=== PATIENT | female | born 1965 | race Caucasian/White ===

== ENCOUNTER 2020-04-17 21:28 | Inpatient (IN) | payer MEDICAID, OTHER, SELFPAY ==
[~2020-04-17] VITALS: Ht 172.7 cm; Wt 94.8 kg
[~2020-04-17 21:28] MED LIST: FLEX5TAB3 PO; IBUP200C PO; IBUP600T26 OR
--- OUTSIDE RECORDS SUMMARY | 2020-04-17 21:33 | CCD | Summary of Care ---
Author Author [facility] Organization [facility] Address Unknown Phone Unavailable Care Team Providers Care Supervisor Benzene Refining Name Role Phone Norbert Wong MD PCP Reason for Referral * Used Durable Medical Equipment (Routine) Referred By Contact Referred To Contact Status Reason Specialty Diagnoses / Procedures Ivan Lew MD [address] [facility] [address] [place] [id number] Email: [email or web address] Open Diagnoses Closed fracture of tibia and fibula with routine healing, unspecified laterality, subsequent encounter Scheduling Instructions [id number] Cam Boot Walking - Tall * Physical Therapy (Routine) Referred By Contact Referred To Contact Status Reason Specialty Diagnoses / Procedures Ivan Lew MD [address] [address] Email: [email or web address] Open Diagnoses Closed fracture of tibia and fibula with routine healing, unspecified laterality, subsequent encounter P rocedures Physical Therapy Evaluate and Treat (External) Reason for Visit * Reason Comments Follow-up 2 wk f/u for right ankle fr acture sx Encounter Details Care Team Description Date Type Department Ivan Lew MD [address] [facility] [address] [place] [address] Closed fracture of tibia and fibula with routine healing, unspecified laterality, subsequent encounter (Primary Dx) 01/29/2020 Office Visit Sorin Cottos Mary [address] [place] [id number] Allergies Comments Active Allergy Reactions Severity Noted Date Hydrocodone-Guaifenesin Hives High 2014 Latex 10/08/2019 documented as of this encounter (statuses as of 01/29/2020) Medications End Date Status Medication Sig Dispensed Refills Start Date Active Zonisamide 100 MG Oral Take 200 mg 0 Capsule (ZONEGRAN) by mouth Two Times Daily Active Prochlorperazine Maleate Take 10 mg by 0 10 MG Oral Tablet mouth every 6 (COMPAZINE)Indications: (six) hours Nausea and Vomiting as needed For nausea and vomiting Indications: Nausea and Vomiting Active Ondansetron HCl 8 MG Oral Take 8 mg by 0 Tablet mouth every 8 (ZOFRAN)Indications: (eight) hours Nausea and Vomiting as needed for Nausea or VomitingIndic ations: Nausea and Vomiting Active levETIRAcetam 500 MG Oral Take 2 60 tablet 3 Tablet (KEPPRA) tablets by 0 mouth Two Times Daily Active Dexamethasone 4 MG Oral Take 1 tablet 60 tablet 0 Tablet (DECADRON) by mouth Two 0 times daily with meals Active traZODone HCl 50 MG Oral Take 50 mg by 0 Tablet (DESYREL) mouth nightly Active Omeprazole 20 MG Oral Take 20 mg by 0 Capsule Delayed Release mouth daily (PriLOSEC) 02/16/2020 Active Vitamin D Take 1 8 capsule 0 (Ergocalciferol) 1.25 MG capsule by 0 (68587 UT) Oral Capsule mouth every 7 (ERGOCALCIFEROL) (seven) days for 8 doses 12/22/2020 Active Vitamin D3 25 MCG (1000 Take 2 180 tablet 3 UT) Oral Tablet tablets by 0 (CHOLECALCIFEROL) mouth daily 12/22/2020 Active Calcium Citrate 950 MG Take 0.5 90 tablet 3 Oral Tablet (CALCITRATE) tablets by 0 mouth Two Times Daily Active Enoxaparin Sodium 40 Inject 0.4 0 MG/0.4ML Subcutaneous mLs into the 0 Solution (LOVENOX) skin daily Active oxyCODONE HCl 5 MG Oral Take 5 mg by 0 Tablet (ROXICODONE) mouth every 6 (six) hours as needed for Pain Active Vitamin C 500 MG Oral Take 500 mg 0 Tablet (ASCORBIC ACID) by mouth daily documented as of this encounter (statuses as of 01/29/2020) Active Problems Problem Noted Date Tibia/fibula fracture 12/19/2019 Encounter for palliative care 10/11/2019 Overview: 10/10. Patient seen in hospital. Consul pedro to facilitate goals of care discussion. Patient declined surgery, but will continue outpt chemo/radiation. Outpt palliative care referral offered. HCP document designating son Sheldon as proxy placed in chart. 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 documented as of this encounter Last Filed Vital Signs Not on filedocumented in this encounter Patient Instructions * Patient Instructions* Ivan Lew MD - 01/29/2020 2:15 PM EST Weight bearing restrictions:Begin weight bearing as tolerated Activity restrictions:Activities as tolerated within the parameters of the weigh t bearing restrictions noted above Physical Therapy: New PT Rx Given Limb Immobilization:CAM boot DVT prophylaxis:No DVT prophylaxis indicated at this time Bone Health Meds:Vitamin D3 1800IU daily, Calcium Citrate 500mg twice daily, Vit golden C 500mg daily until bone healing,Vitamin D2 50,000 units weekly Smoking Cessation:Not applicable Next post op clinic visit:03/25/2020 Imaging at next visit: Right ankle documented in this encounter Progress Notes * Ivan Lew MD - 01/29/2020 2:15 PM EST Patient is now 5 weeks status post ORIF right ankle fracture. Her incisions loo k great today. Sutures been removed. I am going to place her in a cam boot and I think that given her overall condition it is safe for her to begin gait train ing at this time. I have written her physical therapy prescription for this. I will plan to see her back in about 6 weeks to assess her function and obtain x- rays. No signs of infection. Weight bearing restrictions:Begin weight bearing as tolerated Activity restrictions:Activities as tolerated within the parameters of the weigh t bearing restrictions noted above Physical Therapy: New PT Rx Given Limb Immobilization:CAM boot DVT prophylaxis:No DVT prophylaxis indicated at this time Bone Health Meds:Vitamin D3 1800IU daily, Calcium Citrate 500mg twice daily, Vit golden C 500mg daily until bone healing,Vitamin D2 50,000 units weekly Smoking Cessation:Not applicable Next post op clinic visit:03/25/2020 Imaging at next visit: Right ankle documented in this encounter Plan of Treatment Care Team Description Date Type Specialty Rachel Ruelas MD [address] [place] [address] [phone] 01/30/2020 Telemedicine Hematology and Onco logy Order Schedule Name Type Priority Associated Diag noses Ordered: 01/29/2020 Cam Boot Walking - Tall Outpatient Routine Closed fracture of tibia Referral and fibula with routine healing, unspecified laterality, subsequent encounter Health Maintenance Due Date Last Done Comments MMR Vaccines (1 of - 09/10/1968 Standard series) Varicella Vaccines (1 of 09/10/1968 2 - 2-dose childhood series) Pneumococcal Vaccine: 09/10/1973 Pediatrics (0 to 5 Years) and At-Risk Patients (6 to 64 Years) (1 of 3 - PCV13) DTaP,Tdap,and Td Vaccines 09/10/1974 (1 - Tdap) HIV Screening 09/10/1980 Cervical Cancer Screening 09/10/1988 5 years Breast Cancer Screening 2 09/10/2017 years Colon Cancer Screening 10 09/10/2017 yrs Influenza Vaccine 12/06/2019 Pneumococcal Vaccine: 65+ 09/10/2032 Years (1 of 1 - PPSV23) HIB Vaccines Aged Out No longer eligible based on patient's age to complete this topic Hepatitis A Vaccines Aged Out No longer eligibl e based on patient's age to complete this topic Hepatitis B Vaccines Aged Out No longer eligibl e based on patient's age to complete this topic IPV Vaccines Aged Out No longer eligible based on patient's age to complete this topic documented as of this encounter Implants Device Identifier Shelf Expiration Date Model / Serial / L ot Implanted Type Area Manufactur er 02.206.080 / / Screw Cortex Lp 3.5 X 80mm - Right: Ankle SYNTHES [id number] TRAUMA Implanted: Qty: 1 on 12/20/2019 by Ivan Lew MD at [facility]E 219.98 / / Washer 7.0mm Sml Screws - Right: Ankle SYNTHES [id number] TRAUMA Implanted: Qty: 1 on 12/20/2019 by Ivan Lew MD at [facility] 292.12 / / Wire Kirsc W/Trocpt [id number] Right: Ankle SYN THES Ea - [id number] TRAUMA Implanted: Qty: 1 on 12/20/2019 by Ivan Lew MD at [facility] 02.206.014 / / Screw Cortex Lp 3.5x14mm St - Right: Ankle SYNTHES [id number] TRAUMA Implanted: Qty: 1 on 12/20/2019 by Ivan Lew MD at [facility] 02.206.016 / / Screw Cortex Lp 3.5mm [id number]. Right: Ankle SY NTHES - [id number] TRAUMA Implanted: Qty: 1 on 12/20/2019 by Ivan Lew MD at [facility] 02.206.020 / / Screw Cortex Lp 3.5mm [id number]. Right: Ankle SY NTHES - [id number] TRAUMA Implanted: Qty: 1 on 12/20/2019 by Ivan Lew MD at [facility] 02.206.022 / / Screw Cortex Lp 3.5mm [id number]. Right: Ankle SY NTHES - [id number] TRAUMA Implanted: Qty: 1 on 12/20/2019 by Ivan Lew MD at [facility] 02.206.024 / / Screw Cortex Lp 3.5mm [id number]. Right: Ankle SY NTHES - [id number] TRAUMA Implanted: Qty: 1 on 12/20/2019 by Ivan Lew MD at [facility] 02.206.026 / / Screw Cortex Lp 3.5mm [id number]. Right: Ankle SY NTHES - [id number] TRAUMA Implanted: Qty: 1 on 12/20/2019 by Ivan Lew MD at [facility] documented as of this encounter Results Not on filedocumented in this encounter Visit Diagnoses Diagnosis Closed fracture of tibia and fibula wit h routine healing, unspecified laterality, subsequent encounter - Primary documented in this encounter
--- OUTSIDE RECORDS SUMMARY | 2020-04-17 21:33 | CCD | Continuity of Care Document ---
Author Author [facility] Organization Unknown Address Unknown Phone Unavailable Care Team Providers Care Reclamation Engineer Name Role Phone Wong, Norbert Unavailable Unavailable Unavailable Wong, Norbert Unavailable Unavailable Unavailable Kathleen Arce Unavailable Sushila Zhao Unavailable Jody Chung Unavailable Unavailable Sanchez Emily Unavailable Problems Name Dates Details Malignant neoplasm of brain, unspecified (C71.9) 13-Apr-2020 Status: Active Medications Name Dates Details Dexamethasone 4 MG Wong, Norbert Active Keppra 500 MG Wong, Norbert* Start : 15-Apr-2020 Active Omeprazole 20 MG Wong, Norbert* Start : 15-Apr-2020 Active Zonisamide 100 MG Wong, Norbert* Start : 15-Apr-2020 Active Depend Silhouette Briefs L/XL Change as needed Marvin Norbert* Start : 15-Apr-2020 Active Underpads Extra Large Use as needed Wong Norbert* Start : 15-Apr-2020 Active Calcium Carbonate-Vitamin D 600-200 MG-UNIT Wong, Norbert* Start : 15-Apr-2020 Active Gait/Transfer Belt Marvin, Norbert* Start : 15-Apr-2020 Active traZODone HCl 50 MG Wong, Norbert* Start : 15-Apr-2020 Active traZODone HCl 50 MG Wong, Norbert* Start : 29-Oct-2019 End : 13-Dec-2019 Inactive Temozolomide 140 MG Take with 20mg capsule for total of 160mg Wong, Norbert* Start : 26-Oct-2019 End : 13-Dec-2019 Inactive Temozolomide 20 MG take with 140mg cap for total of 160mg Wong, Norbert* Start : 26-Oct-2019 End : 13-Dec-2019 Inactive Dexamethasone 4 MG Wong, Norbert* Start : 22-Oct-2019 End : 13-Dec-2019 Inactive LevETIRAcetam 500 MG Take 2 tablets twice a day Norbert Wong* Start : 22-Oct-2019 End : 13-Dec-2019 Inactive Omeprazole 40 MG Norbert Wong* Start : 22-Oct-2019 End : 13-Dec-2019 Inactive Ondansetron HCl 8 MG Take one tablet every 8 hours as needed for nausea/vomiting Norbert Wong* Start : 22-Oct-2019 End : 13-Dec-2019 Inactive Prochlorperazine Maleate 10 MG Take one tablet every 6 hours as needed for nausea/vomiting Norbert Wong* Start : 22-Oct-2019 End : 13-Dec-2019 Inactive Bactrim DS 800-160 MG Norbert Wong* Start : 22-Oct-2019 End : 13-Dec-2019 Inactive Zonisamide 100 MG Take two capsules twice daily Norbert Wong* Start : 22-Oct-2019 End : 13-Dec-2019 Inactive Allergies and Adverse Reactions Name Dates Details Latex (Allergy) Onset: 15-Apr-2020 St atus: Active Results Date Description Value Details No Known Results Plan of Care Name Dates Details Instructions Diet:Regular diet Ins truction Type: Nutrition education Payers * Medicare - [facility] * [facility] [place]
--- OUTSIDE RECORDS SUMMARY | 2020-04-17 21:33 | CCD | Continuity of Care Document ---
Author Author [facility] Organization Unknown Address Unknown Phone Unavailable Care Team Providers Care Academic Support Center Director Name Role Phone Wong, Norbert Unavailable Unavailable [...] Type: Nutrition education Payers * Medicare - [facility] * [facility]
--- OUTSIDE RECORDS SUMMARY | 2020-04-17 21:33 | CCD | Continuity of Care Document ---
Author Author [facility] Organization Unknown Address Unknown Phone Unavailable Care Team Providers Care Compliance Tester Name Role Phone Wong, Norbert Unavailable Unavailable [...] Type: Nutrition education Payers * Medicare - [facility] * [facility]
--- OUTSIDE RECORDS SUMMARY | 2020-04-17 21:33 | CCD | Continuity of Care Document ---
Author Author [facility] Organization Unknown Address Unknown Phone Unavailable Care Team Providers Care Retail Event And Sales Assistant Name Role Phone Wong, Norbert Unavailable Unavailable [...] Type: Nutrition education Payers * Medicare - [facility] * [facility]
--- OUTSIDE RECORDS SUMMARY | 2020-04-17 21:34 | CCD ---
Author Author [facility] Organization [facility] Address Unknown Phone Unavailable Care Team Providers Care Registered Nurse Cardiac Telemetry Name Role Phone Steve Almazan MD Unavailable Unavailable Steve Almazan MD Unavailable Unavailable Steve Almazan MD Unavailable Unavailable Steve Almazan MD Unavailable Unavailable Steve Almazan MD Unavailable Unavailable Steve Almazan MD Unavailable Unavailable Steve Almazan MD Unavailable Unavailable Steve Almazan MD Unavailable Unavailable Steve Almazan MD Unavailable Unavailable Steve Almazan MD Unavailable Unavailable Steve Almazan MD Unavailable Unavailable Steve QUIROZ Unavailable Unavailable Jem CH MD Unavailable Unavailable Jem CH MD Unavailable Unavailable Jem CH MD Unavailable Unavailable Jem CH MD Unavailable Unavailable Jem CH MD Unavailable Unavailable Jem CH MD Unavailable Unavailable Jem CH MD Unavailable Unavailable Jem CH MD Unavailable Unavailable Jem CH MD Unavailable Unavailable Miller, Baltazar Unavailable Unavailable Miller, Baltazar Unavailable Unavailable Miller, Baltazar Unavailable Unavailable Miller, Baltazar Unavailable Unavailable Miller, Baltazar Unavailable Unavailable Kevin Merida MD Unavailable Unavailable Kevin Merida MD Unavailable Unavailable Kevin Merida MD Unavailable Unavailable Rowan Sellers MD Unavailable Unavailable Rowan Sellers MD Unavailable Unavailable Rowan Sellers MD Unavailable Unavailable Rowan Sellers MD Unavailable Unavailable Rowan Sellers MD Unavailable Unavailable Rowan Sellers MD Unavailable Unavailable Rowan Sellers MD Unavailable Unavailable Rowan Sellers MD Unavailable Unavailable Rowan Sellers MD Unavailable Unavailable Rowan Slelers MD Unavailable Unavailable Rowan Sellers MD Unavailable Unavailable Rowan Sellers MD Unavailable Unavailable Rowan Sellers MD Unavailable Unavailable Rowan Sellers MD Unavailable Unavailable Rowan Sellers MD Unavailable Unavailable Rowan Sellers MD Unavailable Unavailable Rowan Sellers MD Unavailable Unavailable NSOULI, I SUDHIR . Unavailable Unavailable GERALDO ., JACKIE . Unavailable Unavailable GERALDO ., JACKIE . Unavailable Unavailable GERALDO ., JACKIE . Unavailable Unavailable Rauscher, M Kate Unavailable Unavailable Rauscher, M Kate Unavailable Unavailable Rauscher, M Kate Unavailable Unavailable Rauscher, M Kate Unavailable Unavailable Rauscher, M Kate Unavailable Unavailable Rauscher, M Kate Unavailable Unavailable Rauscher, M Kate Unavailable Unavailable Rauscher, M Kate Unavailable Unavailable Rauscher, M Kate Unavailable Unavailable Mary LARRY MD Unavailable Unavailable Mary LARRY MD Unavailable Unavailable Mary LARRY MD Unavailable Unavailable Mary LARRY MD Unavailable Unavailable LARRYMary CORBETT MD Unavailable Unavailable LARRYMary CORBETT MD Unavailable Unavailable LARRYMary CORBETT MD Unavailable Unavailable LARRYMary CORBETT MD Unavailable Unavailable LARRYMary CORBETT MD Unavailable Unavailable LARRYMary CORBETT MD Unavailable Unavailable LARRYMary BRANDT MD Unavailable Unavailable LARRYMary CORBETT MD Unavailable Unavailable LARRYMary CORBETT MD Unavailable Unavailable LARRYMary CORBETT MD Unavailable Unavailable Mary LARRY MD Unavailable Unavailable Mary LARRY MD Unavailable Unavailable LARRYMary CORBETT MD Unavailable Unavailable LARRYMary BRANDT MD Unavailable Unavailable LARRYMary BRANDT MD Unavailable Unavailable LARRY, P JER ALEJANDRA Unavailable Unavailable LARRYMary CORBETT MD Unavailable Unavailable LARRYMary CORBETT MD Unavailable Unavailable LARRY, P JER MD Unavailable Unavailable LARRY, P JER MD Unavailable Unavailable LARRY, P JER MD Unavailable Unavailable LARRY, P JER MD Unavailable Unavailable LARRY, P JER MD Unavailable Unavailable LARRY, P JER MD Unavailable Unavailable LARRY, P JER MD Unavailable Unavailable LARRY, P JER MD Unavailable Unavailable LARRY, P JER MD Unavailable Unavailable LARRY, P JER MD Unavailable Unavailable LARRY, P JER MD Unavailable Unavailable LARRY, P JER MD Unavailable Unavailable LARRY, P JER MD Unavailable Unavailable LARRY, P JER MD Unavailable Unavailable LARRY, P JER MD Unavailable Unavailable LARRY, P JER MD Unavailable Unavailable LARRY, P JER MD Unavailable Unavailable LARRY, P JRE MD Unavailable Unavailable LARYR, P JER MD Unavailable Unavailable LARRY, P JER MD Unavailable Unavailable LARRY, P JER MD Unavailable Unavailable LARRY, P JER MD Unavailable Unavailable LARRY, P JER MD Unavailable Unavailable Papo DENG Unavailable Unavailable VICKIE DE OLIVEIRA MD Unavailable Unavailable VICKIE DE OLIVEIRA MD Unavailable Unavailable VICKIE DE OLIVEIRA MD Unavailable Unavailable VICKIE DE OLIVEIRA MD Unavailable Unavailable VICKIE DE OLIVEIRA MD Unavailable Unavailable VICKIE DE OLIVEIRA MD Unavailable Unavailable VICKIE DE OLIVEIRA MD Unavailable Unavailable VICKIE DE OLIVEIRA MD Unavailable Unavailable VICKIE DE OLIVEIRA MD Unavailable Unavailable VICKIE DE OLIVEIRA MD Unavailable Unavailable VICKIE DE OLIVEIRA MD Unavailable Unavailable VICKIE DE OLIVEIRA MD Unavailable Unavailable VICKIE DE OLIVEIRA MD Unavailable Unavailable VICKIE DE OLIVEIRA MD Unavailable Unavailable VICKIE DE OLIVEIRA MD Unavailable Unavailable VICKIE DE OLIVEIRA MD Unavailable Unavailable VICKIE DE OLIVEIRA MD Unavailable Unavailable VICKIE DE OLIVEIRA MD Unavailable Unavailable VICKIE DE OLIVEIRA MD Unavailable Unavailable VICKIE DE OLIVEIRA MD Unavailable Unavailable VICKIE DE OLIVEIRA MD Unavailable Unavailable VICKIE DE OLIVEIRA MD Unavailable Unavailable VICKIE DE OLIVEIRA MD Unavailable Unavailable VICKIE DE OLIVEIRA MD Unavailable Unavailable VICKIE DE OLIVEIRA MD Unavailable Unavailable VICKIE DE OLIVEIRA MD Unavailable Unavailable VICKIE DE OLIVEIRA MD Unavailable Unavailable VICKIE DE OLIVEIRA MD Unavailable Unavailable VICKIE DE OLIVEIRA MD Unavailable Unavailable VICKIE DE OLIVEIRA MD Unavailable Unavailable VICKIE DE OLIVEIRA MD Unavailable Unavailable VICKIE DE OLIVEIRA MD Unavailable Unavailable VICKIE DE OLIVEIRA MD Unavailable Unavailable VICKIE DE OLIVEIRA MD Unavailable Unavailable VICKIE DE OLIVEIRA MD Unavailable Unavailable VICKIE DE OLIVEIRA MD Unavailable Unavailable VICKIE DE OLIVEIRA MD Unavailable Unavailable VICKIE DE OLIVEIRA MD Unavailable Unavailable VICKIE DE OLIVEIRA MD Unavailable Unavailable VICKIE DE OLIVEIRA MD Unavailable Unavailable VICKIE DE OLIVEIRA MD Unavailable Unavailable VICKIE DE OLIVEIRA MD Unavailable Unavailable VICKIE DE OLIVEIRA MD Unavailable Unavailable VICKIE DE OLIVEIRA MD Unavailable Unavailable VICKIE DE OLIVEIRA MD Unavailable Unavailable VICKIE DE OLIVEIRA MD Unavailable Unavailable VICKIE DE OLIVEIRA MD Unavailable Unavailable VICKIE DE OLIVEIRA MD Unavailable Unavailable VICKIE DE OLIVEIRA MD Unavailable Unavailable VICKIE DE OLIVEIRA MD Unavailable Unavailable VICKIE DE OLIVEIRA MD Unavailable Unavailable VICKIE DE OLIVEIRA MD Unavailable Unavailable VICKIE DE OLIVEIRA MD Unavailable Unavailable VICKIE DE OLIVEIRA MD Unavailable Unavailable VICKIE DE OLIVEIRA MD Unavailable Unavailable DAVI SELF MD Unavailable Unavailable DAVI SELF MD Unavailable Unavailable DAVI SELF MD Unavailable Unavailable DAVI SELF MD Unavailable Unavailable DAVI SELF MD Unavailable Unavailable DAVI SELF MD Unavailable Unavailable DAVI SELF MD Unavailable Unavailable DAVI SELF MD Unavailable Unavailable DAVI SELF MD Unavailable Unavailable DAVI SELF MD Unavailable Unavailable DAVI SELF MD Unavailable Unavailable DAVI SELF MD Unavailable Unavailable DAVI SELF MD Unavailable Unavailable DAVI SELF MD Unavailable Unavailable DAVI SELF MD Unavailable Unavailable DAVI SELF MD Unavailable Unavailable DAVI SELF MD Unavailable Unavailable DAVI SELF MD Unavailable Unavailable DAVI SELF MD Unavailable Unavailable DAVI SELF MD Unavailable Unavailable DAVI SELF MD Unavailable Unavailable DAIV SELF MD Unavailable Unavailable DAVI SELF CHRISTINOCENTE ALEJANDRA Unavailable Unavailable DAVI SELF CHRISTIN[place]ENT[place] ALEJANDRA Unavailable Unavailable DAVI SELF CHRISTINOCENTE ALEJANDRA Unavailable Unavailable DAVI SELF CHRISTIN[place]ENT[place] ALEJANDRA Unavailable Unavailable DAVI SELF CHRISTIN[place] ALEJANDRA Unavailable Unavailable DAVI SELF CHRISTIN[place] ALEJANDRA Unavailable Unavailable DAVI SELF CHRIST[place] ALEJANDRA Unavailable Unavailable DAVI SELF CHRIST[place] ALEJANDRA Unavailable Unavailable DAVI SELF CHRISTIN[place]ENT[place] ALEJANDRA Unavailable Unavailable DAVI SELF [place]RIST[place] ALEJANDRA Unavailable Unavailable DAVI SELF CHRIST[place] ALEJANDRA Unavailable Unavailable DAVI SELF CHRISTIN[place] ALEJANDRA Unavailable Unavailable DAVI SELF [place]RIST[place] ALEJANDRA Unavailable Unavailable SELFDAVI GUPTA CHRISTINOCENTE ALEJANDRA Unavailable Unavailable SELFDAVI GUPTA CHRISTINOCENTE ALEJANDRA Unavailable Unavailable SELFDAVI GUPTA CHRIST MD Unavailable Unavailable DAVI SELF MD Unavailable Unavailable DAVI SELF MD Unavailable Unavailable SELFDAVI GUPTA MD Unavailable Unavailable SELFDAVI GUPTA MD Unavailable Unavailable SELFDAVI GUPTA MD Unavailable Unavailable DAVI SELF MD Unavailable Unavailable DAVI SELF MD Unavailable Unavailable DAVI SELF MD Unavailable Unavailable ESTEPHANIAEPI FOX MD Unavailable Unavailable EPI BEST MD Unavailable Unavailable EPI BEST MD Unavailable Unavailable EPI BEST MD Unavailable Unavailable ESTEPHANIAEPI FOX MD Unavailable Unavailable EPI BEST MD Unavailable Unavailable EPI BEST MD Unavailable Unavailable EPI BEST MD Unavailable Unavailable EPI BEST MD Unavailable Unavailable EPI BEST MD Unavailable Unavailable EPI BEST MD Unavailable Unavailable EPI BEST MD Unavailable Unavailable EPI BEST MD Unavailable Unavailable EPI BEST MD Unavailable Unavailable EPI BEST MD Unavailable Unavailable EPI BEST MD Unavailable Unavailable EPI BEST MD Unavailable Unavailable PANDA, SHIV Unavailable Unavailable Bull, M Radha PA-C Unavailable Unavailable Bull, M Radha PA-C Unavailable Unavailable Bull, M Radha PA-C Unavailable Unavailable Bull, M Radha PA-C Unavailable Unavailable Bull, M Radha PA-C Unavailable Unavailable Bull, M Radha PA-C Unavailable Unavailable Bull, M Radha PA-C Unavailable Unavailable Bull, M Radha PA-C Unavailable Unavailable Bull, M Radha PA-C Unavailable Unavailable Bull, M Radha PA-C Unavailable Unavailable Bull, M Radha PA-C Unavailable Unavailable Bull, M Radha PA-C Unavailable Unavailable Bull, M Radha PA-C Unavailable Unavailable Bull, M Radha PA-C Unavailable Unavailable Bull, M Radha PA-C Unavailable Unavailable Bull, M Radha PA-C Unavailable Unavailable Bull, M Radha PA-C Unavailable Unavailable Bull, M Radha PA-C Unavailable Unavailable Bull, M Radha PA-C Unavailable Unavailable Bull, M Radha PA-C Unavailable Unavailable Bull, M Radha PA-C Unavailable Unavailable Bull, M Radha PA-C Unavailable Unavailable Bull, M Radha PA-C Unavailable Unavailable Bull, M Radha PA-C Unavailable Unavailable Bull, M Radha PA-C Unavailable Unavailable Bull, M Radha PA-C Unavailable Unavailable Bull, M Radha PA-C Unavailable Unavailable Bull, M Radha PA-C Unavailable Unavailable Bull, M Radha PA-C Unavailable Unavailable Bull, M Radha PA-C Unavailable Unavailable Bull, M Radha PA-C Unavailable Unavailable Bull, M Radha PA-C Unavailable Unavailable Bull, M Radha PA-C Unavailable Unavailable FANI, A LEAH Unavailable Unavailable VENERUS, Jem SR MD Unavailable Unavailable VENERUS, Jem SR MD Unavailable Unavailable VENERUS, Jem SR MD Unavailable Unavailable VENERUS, Jem SR MD Unavailable Unavailable VENERUS, Jem SR MD Unavailable Unavailable VENERUS, Jem SR MD Unavailable Unavailable VENERUS, Jem SR MD Unavailable Unavailable VENERUS, Jem SR MD Unavailable Unavailable VENERUS, Jem SR MD Unavailable Unavailable Re-disclosure Warning The records that you are about to access may contain information from federally-assisted alcohol or drug abuse programs. If such information is present, then the following federally mandated warning applies: This information has been disclosed to you from records protected by federal confidentiality rules (42 CFR part 2). The federal rules prohibit you from making any further disclosure of this information unless further disclosure is expressly permitted by the written consent of the person to whom it pertains or as otherwise permitted by 42 CFR part 2. A general authorization for the release of medical or other information is NOT sufficient for this purpose. The Federal rules restrict any use of the information to criminally investigate or prosecute any alcohol or drug abuse patient.The records that you are about to access may contain highly sensitive health information, the redisclosure of which is protected by Article 27-F of the [facility] Public Health law. If you continue you may have access to information: Regarding HIV / AIDS; Provided by facilities licensed or operated by the [facility] Office of Mental Health; or Provided by the [facility] Office for People With Developmental Disabilities. If such information is present, then the following [facility] mandated warning applies: This information has been disclosed to you from confidential records which are protected by state law. State law prohibits you from making any further disclosure of this information without the specific written consent of the person to whom it pertains, or as otherwise permitted by law. Any unauthorized further disclosure in violation of state law may result in a fine or group home sentence or both. A general authorization for the release of medical or other information is NOT sufficient authorization for further disc losure. Allergies and Adverse Reactions Type Description Substance Reaction Status Data Source(s ) Latex Latex Latex active NETSMART ([facility]) BRANDNAME MARLI CALLES [facility] DRUG INGREDI LATEX Latex [facility] Encounters Encounter Providers Location Date Indications Data Source(s ) Outpatient Attender: JER LARRY MD 04/29/2020 12:00: [facility] Attender: VICKIE DE OLIVEIRA MD 04/28/2020 12:00:00 [facility] 04/15/2020 12:00:00 AM EST - 021 03:22:19 PM EST NETSMART ([facility]) Outpatient Attender: VICKIE DE OLIVEIRA MD 04/02/2020 12:00:00 [facility] Outpatient Attender: JER LARRY MD 03/25/2020 12:00: 00 [facility] Outpatient Attender: VICKIE DE OLIVEIRA MD 01/30/2020 12:00:00 [facility] Out[facility] Attender: VICKIE DE OLIVEIRA MD 01/30/2020 12:00:00 [facility] Outpatient Referrer: JER LARRY MD 01/29/2020 12:00:00 AM EST Other fracture of right lower leg, subsequent encounter for closed fracture with routine healing [facility] Other fracture of right lower leg, subse quent encounter for closed fracture with routine healing Outpatient Attender: JER LARRY MD [id number] 01/29/2020 12:00:00 AM EST Unspecified fracture of shaft of unspecified tibia, subsequent encounter for closed fracture with routine healing [facility] Unspecified fracture of shaft of unspeci fied tibia, subsequent encounter for closed fracture with routine healing Outpatient Referrer: LEAH MOHR 01/29/2020 12:0 0:00 AM EST Malignant neoplasm of brain, unspecified [facility] Malignant neoplasm of brain, unspecified Outpatient Attender: LEAH MOHR 01/29/2020 12:00:00 [facility] Outpatient Referrer: JER LARRY MD 01/15/2020 12:00:00 AM EST Other fracture of right lower leg, subsequent encounter for closed fracture with routine healing [facility] Other fracture of right lower leg, subse quent encounter for closed fracture with routine healing Outpatient Attender: JER LARRY MD [id number] 01/15/2020 12:00:00 AM EST Unspecified fracture of shaft of unspecified tibia, subsequent encounter for closed fracture with routine healing [facility] Unspecified fracture of shaft of unspeci fied tibia, subsequent encounter for closed fracture with routine healing Outpatient Attender: JER LARRY MD 01/08/2020 12:00: 00 [facility] Out[facility] Attender: VICKIE DE OLIVEIRA MD 01/07/2020 12:00:00 [facility] Out[facility] Attender: LEAH MOHR 01/01/2020 12:00:00 [facility] Outpatient Referrer: LEAH MOHR 01/01/2020 12:00:00 [facility] Inpatient Attender: EPI Brown DAttender: Baltazar Garnetttender: BLANCHE DENGAdmitter: EPI BEST MDReferrer: Oseas Merida MDConsultant: JER LARRY MD [id number] 12/19/2019 12:00:00 AM EDT - 12/24/2019 03:30:00 PM EDT Unspecified fracture of shaft of unspeci fied tibia, initial encounter for closed fracture [facility] Unspecified fracture of shaft of unspeci fied tibia, initial encounter for closed fracture Patient discharged. Outpatient Attender: LEAH BRADSHAWEReferrer: SHIV KLEIN [id number] 12/04/2019 12:00:00 AM EDT - 12/04/2019 03:26:02 PM EDT [facility] Outpatient Attender: VICKIE DE OLIVEIRA MD [id number] 12/03/19 12:00:00 AM EDT - 12/03/2019 02:28:48 PM EDT [facility] Malignant neoplasm of brain, unspecified Outpatient Attender: Kate Carvajaljoselin [id number] 11/26 12:00:00 AM EDT - 11/28/2019 08:20:37 AM EDT Neoplasm of unspecified behavior of [facility] Neoplasm of unspecified behavior of brai n Outpatient Attender: SUDHIR CARBAJALMIKJairo . [id number] 11/15/2019 12:40:21 PM EDT [facility] Outpatient Attender: LEAH Mcbrideferrer: SHIV KLEIN [id number] 11/06/2019 12:00:00 AM EDT - 11/06/2019 02:56:14 PM EDT on [facility] on treat Outpatient Referrer: SHIV KLEIN 11/06/2019 12:00:00 AM EDT [facility] Outpatient Attender: LEAH Florianrer: SHIV KLEIN [id number] 10/30/2019 12:00:00 AM EDT - 10/30/2019 04:32:01 PM EDT on [facility] on treat Outpatient Attender: VICKIE DE OLIVEIRA MD 10/29/2019 12:00:00 AM EDT [facility] Outpatient Attender: VICKIE DE OLIVEIRA MD 10/29/2019 12:00:00 AM T [facility] Outpatient Attender: JOSE BATES [id number] 10/25/2019 09:31:44 AM EDT [facility] Outpatient Referrer: SHIV KLEIN 10/23/2019 12:00:00 AM EDT [facility] billing Outpatient Attender: JOSE BATES [id number] 0 10/22/2019 11:43:06 AM EDT [facility] 10/22/2019 01:00:00 AM EDT - 020 01:13:33 PM EDT [facility]) Outpatient Attender: VICKIE DE OLIVEIRA MD [id number] 10/15/19 12:00:00 AM EDT - 10/15/2019 11:16:56 AM EDT Neoplasm of unspecified behavior of [facility] Neoplasm of unspecified behavior of brai n Outpatient Attender: CHRIST SELF MD [id number] 10/12/19 20 12:00:00 AM EDT - 10/12/2019 12:11:56 PM EDT Malignant neoplasm of brain, unspecified [facility] Malignant neoplasm of brain, unspecified Outpatient 10/08/2019 04:52:00 AM EDT [facility] Emergency Attender: JORDAN CH MDConsultant: Radha May am PA-C 10/08/2019 03:07:00 AM EDT - 10/08/2019 07:15:00 AM EDT [facility] Patient discharged. Inpatient Attender: Ce Johnson r: SHIV HOLLYAAttender: JACKIE CHOW .Attender: Kev Sellers MDAdmitter: JACKIE CHOW .Referrer: JORDAN CH MD [id number] 10/08/2019 12:00:00 AM EDT - 10/12/2019 04:26:00 PM ED T Unspecified convulsions [facility] Unspecified convulsions Patient discharged. Medications Medication Brand Name Start Date Product Form Dose Route Admi nistrative Instructions Pharmacy Instructions Status Indications Reaction Description Data Source(s) traZODone HCl 50 MG traZODone HCl 04/15/2020 12:00:00 AM EST 50. 0 {mg} completed NETSMART ([facility]) Omeprazole 20 MG Omeprazole 04/15/2020 12:00:00 AM EST 20.0 {mg} completed [facility]SMART ([facility]) Keppra 500 MG Keppra 04/15/2020 12:00:00 AM EST 500.0 {mg} completed [facility]SMART ([facility]) Dexamethasone 4 MG Dexamethasone 04/15/2020 12:00:00 AM EST 4.0 {mg} completed [facility]SMART ([facility]) Depend Silhouette Briefs L/XL Depend Silhouette Briefs L/XL 04/15/2020 12:00:00 AM EST completed NETSMAR T ([facility]) Underpads Extra Large Underpads Extra Large 04/15/2020 12:00:00 AM EST completed NETSMART ([facility]) Calcium Carbonate-Vitamin D 600-200 MG-UNIT Calcium Carbonat e-Vitamin D 04/15/2020 12:00:00 AM EST completed [facility]SMART ([facility]) Gait/Transfer Belt Gait/Transfer Belt 04/15/2020 12:00:00 AM EST completed [facility]SM[facility] ([facility]) Zonisamide 100 MG Zonisamide 04/15/2020 12:00:00 AM EST 2.0 {tab let} completed [facility]SMART ([facility]) Ergocalciferol 89723 UNT Oral Capsule Vi tamin D (Ergocalciferol) 1.25 MG (11879 UT) Oral Capsule (ERGOCALCIFEROL) Vitamin D (Ergocalciferol) 1.25 MG (5000 0 UT) Oral Capsule (ERGOCALCIFEROL) 12/28/2019 12:00:00 AM EDT 49791 U Ora l active Take 1 capsule by mouth every 7 (seven) days for 8 doses [facility] POLYETHYLENE GLYCOL 3350 142 MG/ML Oral Solution polyethylene glycol (MIRALAX) packet 17 g polyethylene glycol (MIRALAX) packet 17 g 12/25/2019 0 9:00:00 AM EDT 17 g Oral active 17 g, Or al, Daily Standard, First dose on Tue12/25/19 at 0900, For 30 days
Mix in 8 ounces of water, juice or milk. Avoid use in patients who require thickened liquids due to potential increased risk for aspiration.
[facility] Medication administered onsite 0.4 ML Enoxaparin sodium 100 MG/ML Prefi lled Syringe enoxaparin sodium (LOVENOX) injection 40 mg enoxaparin sodium (LOVENOX) injection 40 mg 12/25/2019 09:00:00 AM EDT 40 mg Subcutaneous active 40 mg, Subcutaneous, Daily Standard, First dose on Tue12/25/19 at 0900, For 30 days
For 1-2 weeks, till pt is mobile
[facility] Medication administered onsite 0.4 ML Enoxaparin sodium 100 MG/ML Prefi lled Syringe Enoxaparin Sodium 40 MG/0.4ML Subcutaneous Solution (LOVENOX) Enoxaparin Sodium 40 MG/0.4ML Subcutaneous Solution (LOVENOX) 12/25/2019 12:00:00 AM EDT 40 mg Subcutaneous active Inject 0.4 mLs into the s kin daily [facility] Docusate Sodium 56.6 MG/ML Enema docusate sodium (ENEM EEZ) enema 5 mL docusate sodium (ENEMEEZ) enema 5 mL 12/24/2019 10:53:45 AM EDT 5 mL Rectal active 5 mL, Rectal, Daily PRN, Con stipation, Starting 12/24/19 at 1053, For 30 days [facility] Medication administered onsite Calcium Citrate 950 MG Oral Tablet Calci um Citrate 950 MG Oral Tablet (CALCITRATE) Calcium Citrate 950 MG Oral Tablet (CALCITRATE) 2019 12:00:00 AM EDT 475 mg Oral aborted Take 0.5 tablets by mouth Two Times Daily [facility] Calcium Citrate 950 MG Oral Tablet Calci um Citrate 950 MG Oral Tablet (CALCITRATE) Calcium Citrate 950 MG Oral Tablet (CALCITRATE) 2019 12:00:00 AM EDT 475 mg Oral active Take 0.5 tablets by mouth Two Times Daily [facility] Cholecalciferol 1000 UNT Oral Tablet Vit golden D3 25 MCG (1000 UT) Oral Tablet (CHOLECALCIFEROL) Vitamin D3 25 MCG (1000 UT) Oral Tablet (CHOLECALCIFER OL) 12/24/2019 12:00:00 AM EDT 2000 U Oral active Take 2 tablets by mouth daily [facility] Cholecalciferol 1000 UNT Oral Tablet Vit golden D3 25 MCG (1000 UT) Oral Tablet (CHOLECALCIFEROL) Vitamin D3 25 MCG (1000 UT) Oral Tablet (CHOLECALCIFER OL) 12/24/2019 12:00:00 AM EDT 2000 U Oral aborted Take 2 tablets by mouth daily [facility] Acetaminophen 325 MG Oral Tablet acetaminophen (TYLENO L) tablet 650 mg acetaminophen (TYLENOL) tablet 650 mg 12/23/2019 08:11:36 AM EDT 65 0 mg Oral active 650 mg, Oral, E very 4 hours PRN, Mild Pain (Pain Scale Score 1- 3), Starting 12/23/19 at 0811, For 3 days
Maximum daily dose of acetaminophen is 3,000 mg from all sources in 24 hours.
[facility] Medication administered onsite Oxycodone Hydrochloride 5 MG Oral Tablet oxyCODONE (ROXICODONE) immediate release tablet 5 mg oxyCODONE (ROXICODONE) immediate release tablet 5 mg 12/23/2019 08:11:31 AM EDT 5 mg Oral active 5 mg, Oral, Every 6 hours PRN, Severe Pain (Pain Scale Score 7-10), Starting 12/23/19 at 0811, For 3 days
Oxycodone immediate release is limited to 10 mg per dose. Higher doses ( only) require Pain Service consultation and approval.
[facility] Medication administered onsite potassium phosphate infusion 6 mmol/100 mL (premix) 12/23/2019 07:00:00 AM EDT 6 mmol Intravenous completed 6 mmol, Intravenous, at 25 mL/hr, Once, 12/23/19 at 0700, For 1 dose
Slower infusion rates (e.g. over 4 hours) are recommended in patients with renal impairment and/or less severe hypophosphatemia. Product contains 8.8 mEq of potassium.
[facility] Medication administered onsite lidocaine (XYLOCAINE) 1 % injection 5 mL [id number] 12/22/2019 04:40:00 PM EDT 5 mL Subcutaneous active 5 m L, Subcutaneous, Once PRN, For MIDLINE Catheter insertion, Starting 12/22/19 at 1640, For 30 days [facility] Medication administered onsite sodium chloride (preservative free) 0.9 % flush 10 mL 12/22/2019 04:40:00 PM EDT 10 mL Intravenous active [Ord er 1 Start] Name: Midline Catheter Insertion Signed Summary: Routine, ONCE, 12/22/19 at 1640, For 1 occurrence
Reason for MIDLINE insertion: Access [Order 1 End] [Order 2 Start] Name: sodium chloride (preservative free) 0.9 % flush 10 mL Signed Summary: 10 mL, Intravenous, PRN, Line Care, Starting 12/22/19 at 1640, For 30 days
When catheter is not in use flush with 10mL Sodium Chloride. Every 12h. Reference CM P-05 Extended Dwell/Midline Peripheral Catheter.
[Order 2 End] [Order 3 Start] Name: sodium chloride (preservative free) 0.9 % flush 10 mL Signed Summary: 10 mL, Intravenous, PRN, Line Care, Starting 12/22/19 at 1640, For 30 days
Flush with 10 mL Sodium Chloride before and after infusions or blood sampling. Reference CM-05 Extended Dwell/Midline Peripheral Catheter.
[Order 3 End] [facility] Medication administered onsite potassium chloride (KLOR-CON) packet 40 mEq [id number] 12/22/2019 09:00:00 AM EDT 40 meq Oral completed 40 mEq , Oral, 2 Times Daily, First dose on Tue12/22/19 at 0900, For 2 doses
Mix in 4 ounces of water or juice
[facility] Medication administered onsite insulin lispro (HumaLOG) injection LOW DOSE EATING INS ULIN patients 1-8 Units [id number] 12/21/2019 06:00:00 PM EDT U Subcutaneous active 1-8 Units, Subcutaneous, Three Times Daily-With Meals, First dose on Tue12/21/19 at 1800, For 30 days
Nursing MUST open the 'SQ Insulin Dosing Charts' Sidebar Report, or, the Patient Summary or Summary Report within the ED.
[facility] Medication administered onsite dextrose 50 % IV solution 25 mL [id number] 12/21/2019 01:33:36 PM E DT 25 mL Intravenous active 25 mL, Intrav enous, PRN, Other, blood glucose <55, Starting Tue12/21/19 at 1333, For 30 days
Not for midline administration.
[facility] Medication administered onsite Glucagon 1 MG Injection glucagon (human recombinant) ( GLUCAGEN) injection 1 mg glucagon (human recombinant) (GLUCAGEN) injection 1 mg 12/21/2019 01:33:36 PM EDT 1 mg Intramuscular active 1 mg, Intramuscular, PRN, for glucose <55 without IV access, Starting Tue12/21/19 at 1333, For 30 days [facility] Medication administered onsite Glucose 0.417 MG/MG Oral Gel glucose (GLUTOSE) 40 % or al gel 15 g glucose (GLUTOSE) 40 % oral gel 15 g 12/21/2019 01:33:36 PM EDT 15 g Oral active 15 g, Oral, PRN, Low blood s ugar, for gluose 55-69 mg/dl and able to take PO, Starting Tue12/21/19 at 1333, For 30 days [facility] Medication administered onsite Calcium Citrate 950 MG Oral Tablet calcium citrate (CA LCITRATE) tablet 475 mg calcium citrate (CALCITRATE) tablet 475 mg 12/21/2019 09:00:00 AM EDT 475 mg Oral active 475 mg, Oral, 2 Times Daily, First dose on Tue12/21/19 at 0900, For 30 days [facility] Medication administered onsite Ascorbic Acid 500 MG Oral Tablet vitamin C (ASCORBIC A DOMINICK) tablet 500 mg vitamin C (ASCORBIC ACID) tablet 500 mg 12/21/2019 09:00:00 AM EDT 500 mg O ral active 500 mg, Oral, Daily Standard, First dose on Tue12/21/19 at 0900, For 30 days [facility] Medication administered onsite 0.3 ML Enoxaparin sodium 100 MG/ML Prefi lled Syringe enoxaparin sodium (LOVENOX) injection 30 mg enoxaparin sodium (LOVENOX) injection 30 mg 12/21/2019 09:00:00 AM EDT 30 mg Subcutaneous aborted 30 mg, Subcutaneous, Every 12 hours Standard (2 times per day), First dose (after last modification) on Tue12/21/19 at 0900, For 12 doses
Non Patients: body weight < 150 kg, CrCl > 30 mL/min. Guidelines for Lovenox:MUST wait 24 hours before starting Enoxaparin if patient has epidural catheter.D/C Enoxaparin 10-12 hours prior to removing epidural catheter.May restart Enoxaparin 24 hours after epidural catheter has been removed.
[facility] Medication administered onsite Ergocalciferol 13621 UNT Oral Capsule vi tamin D (ERGOCALCIFEROL) capsule 50,000 Units vitamin D (ERGOCALCIFEROL) capsule 50,000 Units 2019 09:00:00 AM EDT 98383 U Oral active 50,000 U nits, Oral, Every 7 days, First dose on Tue12/21/19 at 0900, For 30 days [facility] Medication administered onsite Cholecalciferol 1000 UNT Oral Tablet vit golden D3 (CHOLECALCIFEROL) tablet 2,000 Units vitamin D3 (CHOLECALCIFEROL) tablet 2,000 Units 2019 09:00:00 AM EDT 2000 U Oral active 2,000 Un its, Oral, Daily Standard, First dose on Tue12/21/19 at 0900, For 30 days
25 mcg vitamin D3 = 1,000 international units vitamin D3.
[facility] Medication administered onsite magnesium sulfate in dextrose 5 % infusion (premix) 1 g 0409 -[id number] 12/21/2019 07:15:00 AM EDT 1 g Intravenous completed 1 g, Intravenous, Administer over 60 Minutes, Once, Tue12/21/19 at 0715, For 1 dose [facility] Medication administered onsite Cefazolin 2000 MG Injection ceFAZolin (ANCEF) IVPB 2 g in dextrose (premix) ceFAZolin (ANCEF) IVPB 2 g in dextrose (premix) 12/21/2019 01:00:00 AM EDT 2 g Intravenous completed 2 g, Int ravenous, Administer over 30 Minutes, Every 8 hours, First dose on Tue12/21/19 at 0100, For 16 hours
3 gram for patients weighing >/= to 120 kg
[facility] Medication administered onsite fentaNYL (SUBLIMAZE) (PF) injection 25 mcg [id number] 12/20/2019 06:37:26 PM EDT 25 ug Intravenous aborted 25 m cg, Intravenous, Every 5 min PRN, Severe Pain (Pain Scale Score 7-10), Starting Lynsey 12/20/19 at 1837, For 10 doses, [facility] Medication administered onsite HYDROmorphone (DILAUDID) injection 0.52 mg [id number] 12/20/2019 06:37:26 PM EDT 0.5 mg Intravenous completed 0. 52 mg (rounded from 0.5 mg), Intravenous, Every 5 min PRN, Severe Pain (Pain Scale Score > 6), Starting Lynsey 12/20/19 at 1837, For 4 doses, Recovery [facility] Medication administered onsite pantoprazole 40 MG Delayed Release Oral Tablet pantoprazole (PROTONIX) EC tablet 40 mg pantoprazole (PROTONIX) EC tablet 40 mg 12/20/2019 09:00:00 AM E DT 40 mg Oral active 40 mg, Ora l, Daily Standard, First dose on Lynsey 12/20/19 at 0900, For 30 days
Do not crush or chew
[facility] Medication administered onsite Levetiracetam 500 MG Oral Tablet levETIRAcetam (KEPPRA ) tablet 1,000 mg levETIRAcetam (KEPPRA) tablet 1,000 mg 12/20/2019 09:00:00 AM EDT 1000 mg Oral active 1,000 mg, Oral , 2 Times Daily, First dose on Lynsey 12/20/19 at 0900, For 30 days [facility] Medication administered onsite zonisamide 100 MG Oral Capsule zonisamide (ZONEGRAN) c apsule 200 mg zonisamide (ZONEGRAN) capsule 200 mg 12/20/2019 09:00:00 AM EDT 200 mg Oral active 200 mg, Oral, 2 Times Daily, First dose on Lynsey 0 at 0900, For 30 days [facility] Medication administered onsite Dexamethasone 4 MG Oral Tablet dexamethasone (DECADRON ) tablet 4 mg dexamethasone (DECADRON) tablet 4 mg 12/20/2019 09:00:00 AM EDT 4 mg Oral active 4 mg, Oral, 2 Times Daily With Meals, First dose on Lynsey 12/20/19 at 0900, For 30 days
Take with food.
[facility] Medication administered onsite potassium chloride (K-DUR) dissolvable tablet 40 mEq [id number] 12/20/2019 07:30:00 AM EDT 40 meq Oral completed 40 mEq, Oral, Once, Lynsey 12/20/19 at 0730, For 1 dose
May be dissolved in water for patients with a G-Tube or unable to swallow. If concern for clogging G-Tube, may contact Pharmacy to switch formulation to a powder packet.
[facility] Medication administered onsite Oxycodone Hydrochloride 5 MG Oral Tablet oxyCODONE (ROXICODONE) immediate release tablet 5 mg oxyCODONE (ROXICODONE) immediate release tablet 5 mg 12/20/2019 02:01:53 AM EDT 5 mg Oral completed 5 mg, Oral, Every 6 hours PRN, Severe Pain (Pain Scale Score 7-10), Starting Lynsey 12/20/19 at 0201, For 3 days
Oxycodone immediate release is limited to 10 mg per dose. Higher doses ( only) require Pain Service consultation and approval.
[facility] Medication administered onsite potassium chloride (K-DUR) dissolvable tablet 40 mEq [id number] 12/20/2019 01:15:00 AM EDT 40 meq Oral completed 40 mEq, Oral, Once, Lynsey 12/20/19 at 0115, For 1 dose
May be dissolved in water for patients with a G-Tube or unable to swallow. If concern for clogging G-Tube, may contact Pharmacy to switch formulation to a powder packet.
[facility] Medication administered onsite Trazodone Hydrochloride 50 MG Oral Tablet trazodone (D ESYREL) tablet 50 mg trazodone (DESYREL) tablet 50 mg 12/20/2019 01:00:37 AM EDT 50 mg Oral active 50 mg, Oral, Nightly PRN, Sleep, Starting [facility] 12/20/19 at 0100, For 30 days [facility] Medication administered onsite Acetaminophen 325 MG Oral Tablet acetaminophen (TYLENO L) tablet 650 mg acetaminophen (TYLENOL) tablet 650 mg 12/20/2019 01:00:07 AM EDT 65 0 mg Oral completed 650 mg, Oral, E very 4 hours PRN, Mild Pain (Pain Scale Score 1-3), Starting [facility] 12/20/19 at 0100, For 3 days
Maximum daily dose of acetaminophen is 3,000 mg from all sources in 24 hours.
[facility] Medication administered onsite sennosides, LONG-TERM 8.6 MG Oral Tablet senna tablet 2 tablet sen na tablet 2 tablet 12/20/2019 01:00:07 AM EDT 2 {tbl} Oral active 2 tablet, Oral, Nightly PRN, Constipation, Starting [facility] 12/20/19 at 0100, For 30 days [facility] Medication administered onsite dexamethasone (DECADRON) injection 4 mg [id number] 12/19/19 10:15:00 PM EDT 4 mg Intravenous completed 4 mg, Intr avenous, Once, 12/19/19 at 2215, For 1 dose [facility] Medication administered onsite Acetaminophen 325 MG Oral Tablet acetaminophen (TYLENO L) tablet 650 mg acetaminophen (TYLENOL) tablet 650 mg 11/27/2019 12:45:00 PM EDT 65 0 mg Oral completed 650 mg, Oral, O nce, 11/27/19 at 1245, For 1 dose
Give once prior to transfusion.
[facility] Medication administered onsite Diphenhydramine Hydrochloride 25 MG Oral Capsule diphenhydrAMINE (BENADRYL) capsule 25 mg diphenhydrAMINE (BENADRYL) capsule 25 mg 11/27/2019 12 :45:00 PM EDT 25 mg Oral completed 25 mg, Oral, Once, 11/27/19 at 1245, For 1 dose
Give once prior to transfusion.
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 with one 20 mg capsule for a total dose of 160 mg daily by [facility] Anaplastic astrocytoma temozolomide 140 MG Oral Capsule Temozolomide 140 MG O ral Capsule (Temodar) Temozolomide 140 MG Oral Capsule (Temodar) 10/23/2019 12:00:00 AM EDT 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 with one 20 mg capsule for a total dose of 160 mg daily by [facility] Anaplastic astrocytoma Zonisamide 100 MG Zonisamide 10/22/2019 01:00:00 AM EDT completed [facility]SMART ([facility] ) Bactrim DS 800-160 MG Bactrim DS 10/22/2019 01:00:00 AM EDT completed [facility]SMART ([facility]) Prochlorperazine Maleate 10 MG Prochlorperazine Maleate 10/05 01:00:00 AM EDT completed NETSMAR T ([facility]) Omeprazole 40 MG Omeprazole 10/22/2019 01:00:00 AM EDT completed [facility]SMART ([facility] ) Ondansetron HCl 8 MG Ondansetron HCl 10/22/2019 01:00:00 AM EDT completed [facility] ([facility]) Dexamethasone 4 MG Dexamethasone 10/22/2019 01:00:00 AM EDT completed [facility]SMART ([facility]) LevETIRAcetam 500 MG LevETIRAcetam 10/22/2019 01:00:00 AM EDT completed [facility]SM[facility] ([facility]) temozolomide 20 MG Oral Capsule Temozolomide 20 MG Ora l Capsule (Temodar) Temozolomide 20 MG Oral Capsule (Temodar) 10/19/2019 12:00:00 AM EDT 160 mg Oral aborted Take 8 capsule s by mouth daily Start taking the night before radiation begins [facility] Ondansetron 4 MG Oral Tablet Ondansetron HCl 4 MG Oral Tablet (Zofran) Ondansetron HCl 4 MG Oral Tablet (Zofran) 10/15/2019 12:00:00 AM EDT 4 mg Oral completed Take 1 tablet by mouth every 8 (eight) hours as needed for Nausea [facility] Sulfamethoxazole 800 MG / Trimethoprim 1 60 MG Oral Tablet Sulfamethoxazole- Trimethoprim 800-160 MG Oral Tablet (BACTRIM DS) Sulfamethoxazole-Trimethoprim 800-160 MG Oral Tablet (BACTRIM DS) 10/13/2019 12:00:00 AM EDT 1 {tbl } Oral completed Take 1 tablet by mouth daily for 10 days [facility] Omeprazole 40 MG Delayed Release Oral Ca psule Omeprazole 40 MG Oral Capsule Delayed Release (PRILOSEC) Omeprazole 40 MG Oral Capsule Delayed Re lease (PRILOSEC) 10/12/2019 12:00:00 AM EDT 40 mg Oral aborted Take 1 capsule by mouth daily [facility] Levetiracetam 500 MG Oral Tablet levETIRAcetam 500 MG Oral Tablet (KEPPRA) levETIRAcetam 500 MG Oral Tablet (KEPPRA) 10/12/2019 12:00:00 AM EDT 1000 mg Oral active Take 2 tablets by mo [facility] Two Times Daily [facility] Dexamethasone 4 MG Oral Tablet Dexamethasone 4 MG Oral Tablet (DECADRON) Dexamethasone 4 MG Oral Tablet (DECADRON) 10/12/2019 12:00:00 AM EDT 4 mg Oral active Take 1 tablet by luci Two times daily with meals [facility] Insurance Providers Payer name Policy type / Coverage type Policy ID Covered green party ID Covered green party's relationship to santos Policy [place] Plan Information [facility] [id number] SP [id number] MEDICAID M [id number] Self [id number] MEDICARE A [id number] Self [id number] MEDICAID M [id number] Self [id number] COMMERCIAL GENERIC U [id number] Self [id number] MEDICAID OOS [id number] Self [id number] MEDICAID -PHYSICIAN [id number] MEDICARE PART A -O/P [id number] 18 [id number] MEDICAID - O/P EMERGENCY ROOM [id number] 18 [id number] [facility] COMM[facility]AN MCDO [id number] SP [id number] SELF PAY UNAVAILABLE UNAVAILA BLE MEDICAID -CLINIC [id number] [facility] [id number] 18 [id number] [employer] XIX HMO-O/P [id number] MEDICAID [id number] SP [id number] Problems, Conditions, and Diagnoses Code Display Name Description Problem Type Effective Dates Data Source(s) L89.322 Pressure ulcer of left buttock, stage 2 Pressure ulcer of left buttock, stage 2 Problem 04/15/2020 12:00:00 AM EST [facility]SMART ([facility]) S82.841D Displaced bimalleolar fractu re of right lower leg, subsequent encounter for closed fracture with routine healing Displaced bimalleolar fracture of right lower leg, subsequent encounter for closed fracture with routine healing Problem 04/15/2020 12:00:00 AM EST [facility]SMART ([facility]) C71.8 Malignant neoplasm of overlapping sites of brain Malignant neoplasm of overlapping sites of brain Problem 04/15/2020 12:00:00 AM EST NETSMA RT ([facility]) 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, not intractable, 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, not intractable, without status epilepticus Problem 04/15/2020 12:00 :00 AM EST [facility]SMART ([facility]) 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 cer ebral infarction affecting right dominant side Problem 04/15/2020 12:00:00 AM EST [facility]SM[facility] ([facility]) 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 Problem 04/15/2020 12:00:00 AM EST [facility] ([facility]) R47.01 Aphasia Aphasia Problem 04/15/2020 12:00:00 AM ES T [facility]SMART ([facility]) F41.9 Anxiety disorder, unspecified Anxiety disorder, unspec ified Problem 04/15/2020 12:00:00 AM EST [facility]SM[facility] ([facility] ) F32.9 Major depressive disorder, single episod e, unspecified Major depressive disorder, single episode, unspecified Problem 04/15/2020 12:00:00 AM EST [facility] ([facility]) E66.9 Obesity, unspecified Obesity, unspecified Problem 04/15/2020 12:00:00 AM EST [facility] ([facility] ) R32 Unspecified urinary incontinence Unspecified urinary i ncontinence Problem 04/15/2020 12:00:00 AM EST [facility]SMART ([facility] ) Z48.00 Encounter for change or removal of nonsu rgical wound dressing Encounter for change or removal of nonsurgical wound dressing Problem 12:00:00 AM EST [facility]SM[facility] ([facility] ) Z79.52 residential (current) use of systemic ster 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 Problem 04/15/2020 12:00:00 AM EST [facility]SM[facility] ([facility]) Z68.33 Body mass index [BMI] 33.0-33.9, adult B thao mass index [BMI] 33.0-33.9, adult Problem 04/15/2020 12:00:00 AM EST [facility]SMART ([facility]) Z86.16 Personal history of COVID-19 Personal history of COVID -19 Problem 04/15/2020 12:00:00 AM EST [facility]SM[facility] ([facility] ) Z91.81 History of falling History of falling Problem 12:00:00 AM EST [facility] ([facility]) 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 on wheelchair Prob deyvi 04/15/2020 12:00:00 AM EST [facility]SM[facility] ([facility] ) L89.312 Pressure ulcer of right buttock, stage 2 Pressure ulcer of right buttock, stage 2 Problem 04/15/2020 12:00:00 AM EST [facility]SMART ([facility]) C71.9 Malignant neoplasm of brain, unspecified Malignant neoplasm of brain, unspecified Problem 04/13/2020 12:00:00 AM EST [facility]SM[facility] ([facility]) 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, not intractable, 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, not intractable, without status epilepticus Problem 10/21/2019 01:00 :00 AM EDT NETSMART ([facility]) 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 cer ebral infarction affecting right dominant side Problem 10/21/2019 01:00:00 AM EDT NET SMART ([facility]) 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 Problem 10/21/2019 01:00:00 AM EDT NETSMART ([facility]) R47.01 Aphasia Aphasia Problem 10/21/2019 01:00:00 AM ED T NETSMART ([facility]) F41.9 Anxiety disorder, unspecified Anxiety disorder, unspec ified Problem 10/21/2019 01:00:00 AM EDT [facility]SMART ([facility] ) F32.9 Major depressive disorder, single episod e, unspecified Major depressive disorder, single episode, unspecified Problem 10/21/2019 01:00:00 AM EDT NETSMART ([facility]) E66.9 Obesity, unspecified Obesity, unspecified Problem 10/21/2019 01:00:00 AM EDT NETSMART ([facility] ) Z91.81 History of falling History of falling Problem 0 01:00:00 AM EDT [facility]SMART ([facility]) Z68.33 Body mass index (BMI) 33.0-33.9, adult B thao mass index (BMI) 33.0-33.9, adult Problem 10/21/2019 01:00:00 AM EDT NETSMART ([facility]) C71.8 Malignant neoplasm of overlapping sites of brain Malignant neoplasm of overlapping sites of brain Problem 10/21/2019 01:00:00 AM EDT NETSMA RT ([facility]) C71.9 Malignant neoplasm of brain, unspecified Malignant neoplasm of brain, unspecified Problem 10/11/2019 01:00:00 AM EDT NETSMART ([facility]) S82.891D Other fracture of right lowe r leg, subsequent encounter for closed fracture with routine healing Other fracture of right lower leg, subse quent encounter for closed fracture with routine healing Diagnosis 10:25:55 AM [facility] S82.409D Unspecified fracture of shaf t of unspecified fibula, subsequent encounter for closed fracture with routine healing Unspecified fracture of shaft of unspecified fibula, subsequent encounter for closed fracture with routine healing Diagnosis 12/19/2019 10:58:44 PM EDT [facility] S82.209D Unspecified fracture of shaf t of unspecified tibia, subsequent encounter for closed fracture with routine healing Unspecified fracture of shaft of unspecified tibia, subsequent encounter for closed fracture with routine healing Diagnosis 12/19/2019 10:58:44 PM EDT [facility] S82.409A Unspecified fracture of shaf t of unspecified fibula, initial encounter for closed fracture Unspecified fracture of shaft of unspeci fied fibula, initial encounter for closed fracture Diagnosis 12/19/2019 10:58:44 PM EDT [facility] S82.209A Unspecified fracture of shaf t of unspecified tibia, initial encounter for closed fracture Unspecified fracture of shaft of unspeci fied tibia, initial encounter for closed fracture Diagnosis 12/19/2019 10:58:44 PM EDT [facility] vasogenic edema, LE weakness, brain mass vasogenic edema, LE weakness, brain mass Diagnosis 12/19/2019 04:27:00 PM EDT [facility] follow up follow up Diagnosis 12/04/2019 09:26:[address] [facility] D69.6 Thrombocytopenia, unspecified Thrombocytopenia, unspec ified Diagnosis 11/27/2019 12:10:29 PM EDT [facility] on treat on treat Diagnosis 11/06/2019 01:59:[address] [facility] billing billing Diagnosis 10/24/2019 08:04:[address] [facility] 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 Diagnosis 10/09/2019 06:53:39 PM EDT [facility] C71.9 Malignant neoplasm of brain, unspecified Malignant neoplasm of brain, unspecified Diagnosis 10/09/2019 06:52:36 PM EDT [facility] R41.82 Altered mental status, unspecified Altered menta l status, unspecified Diagnosis 10/08/2019 [facility] E87.6 Hypokalemia Hypokalemia Diagnosis 10/08/2019 08:55:14 AM [facility] G93.89 Other specified disorders of brain Other specifi ed disorders of brain Diagnosis 10/08/2019 08:55:14 AM [facility] R56.9 Unspecified convulsions Unspecified convulsions Diagno sis 10/08/2019 08:55:14 AM [facility] seizures seizures Diagnosis 10/08/2019 08:55:[address] [facility] [id number] Latex allergy status Latex allergy status Diagnosis 10/08/2019 03:07:00 AM EDT [facility] E876 Hypokalemia Hypokalemia Diagnosis 10/08/2019 03:07:00 AM [facility] G9389 Other specified disorders of brain Other specifi ed disorders of brain Diagnosis 10/08/2019 03:07:00 AM EDT [facility] [id number] Unspecified convulsions Unspecified convulsions Diagno sis 10/08/2019 03:07:00 AM [facility] Surgeries/Procedures Procedure Description Date Indications Data Source(s) POCT GLUCOSE, DOCKED POCT GLUCOSE, DOCKED Routine 12/24/2019 1:09 PM EDT 12/24/2019 01:09:00 PM T [facility] RESPIRATORY PATHOGEN PANEL RESPIRATORY PATHOGEN PANEL Routine 12/24/2019 12:49 PM EDT 12/24/2019 12:49:00 PM EDT [facility] COVID-19 PCR COVID-19 PCR STAT 12/24/2019 11:57 AM EDT 12/24/2019 11:57:00 AM [facility] POCT GLUCOSE, DOCKED POCT GLUCOSE, DOCKED Routine 12/24/2019 7:36 AM EDT 12/24/2019 07:36:00 AM [facility] BLOOD COUNT COMPLETE AUTOMATED CBC Routine 12/24/2019 3:22 A M EDT 12/24/2019 03:22:00 AM [facility] GLUCOSE QUANTITATIVE BLOOD XCPT REAGENT STRIP POCT GLUCOSE, DOC KED Routine 12/23/2019 11:25 PM EDT 12/23/2019 11:25:00 PM [facility] GLUCOSE QUANTITATIVE BLOOD XCPT REAGENT STRIP POCT GLUCOSE, DOC KED Routine 12/23/2019 4:54 PM EDT 12/23/2019 04:54:00 PM [facility] GLUCOSE QUANTITATIVE BLOOD XCPT REAGENT STRIP POCT GLUCOSE, DOC KED Routine 12/23/2019 7:46 AM EDT 12/23/2019 07:46:00 AM [facility] BLOOD COUNT COMPLETE AUTOMATED CBC Routine 12/23/2019 3:24 A M EDT 12/23/2019 03:24:00 AM [facility] PHOSPHORUS INORGANIC PHOSPHORUS LEVEL Routine 12/23/2019 3:24 AM E DT 12/23/2019 03:24:00 AM [facility] MAGNESIUM MAGNESIUM LEVEL Routine 12/23/2019 3:24 AM EDT 12/23/2019 03:24:00 AM [facility] BASIC METABOLIC PANEL CALCIUM TOTAL BASIC METABOLIC PANEL Routi ne 12/23/2019 3:24 AM EDT 12/23[facility] XCPT REAGENT STRIP POCT GLUCOSE, DOC KED Routine 12/23/2019 12:49 AM EDT 12/23/2019 12:49:00 AM [facility] GLUCOSE QUANTITATIVE BLOOD XCPT REAGENT STRIP POCT GLUCOSE, DOC KED Routine 12/22/2019 5:24 PM EDT 12/22/2019 05:24:00 PM [facility] GLUCOSE QUANTITATIVE BLOOD XCPT REAGENT STRIP POCT GLUCOSE, DOC KED Routine 12/22/2019 8:18 AM EDT 12/22/2019 08:18:00 AM [facility] BLOOD COUNT COMPLETE AUTOMATED CBC Routine 12/22/2019 3:50 A M EDT 12/22/2019 03:50:00 AM [facility] PHOSPHORUS INORGANIC PHOSPHORUS LEVEL Routine 12/22/2019 3:50 AM E DT 12/22/2019 03:50:00 AM [facility] MAGNESIUM MAGNESIUM LEVEL Routine 12/22/2019 3:50 AM EDT 12/22/2019 03:50:00 AM [facility] BASIC METABOLIC PANEL CALCIUM TOTAL BASIC METABOLIC PANEL Routi ne 12/22/2019 3:50 AM EDT 12/22/2019 03:50:00 AM EDT [facility] GLUCOSE QUANTITATIVE BLOOD XCPT REAGENT STRIP POCT GLUCOSE, DOC KED Routine 12/22/2019 12:40 AM EDT 12/22/2019 12:40:00 AM [facility] GLUCOSE QUANTITATIVE BLOOD XCPT REAGENT STRIP POCT GLUCOSE, DOC KED Routine 12/21/2019 5:40 PM EDT 12/21/2019 05:40:00 PM [facility] GLUCOSE QUANTITATIVE BLOOD XCPT REAGENT STRIP POCT GLUCOSE, DOC NICHOLASD Routine 12/21/2019 12:30 PM EDT 12/21/2019 12:30:00 PM [facility] BLOOD COUNT COMPLETE AUTOMATED CBC AND DIFFERENTIAL Routine 12/21/2019 4:37 AM EDT 12/21/2019 04:37:00 AM EDT [facility] PHOSPHORUS INORGANIC PHOSPHORUS LEVEL Routine 12/21/2019 4:37 AM E DT 12/21/2019 04:37:00 AM [facility] MAGNESIUM MAGNESIUM LEVEL Routine 12/21/2019 4:37 AM EDT 12/21/2019 04:37:00 AM [facility] BASIC METABOLIC PANEL CALCIUM TOTAL BASIC METABOLIC PANEL Routi ne 12/21/2019 4:37 AM EDT 12/21/2019 04:37:00 AM EDT [facility] GLUCOSE QUANTITATIVE BLOOD XCPT REAGENT STRIP POCT GLUCOSE, DOC KED Routine 12/20/2019 10:55 PM EDT 12/20/2019 10:55:00 PM [facility] BLOOD COUNT COMPLETE AUTOMATED CBC Routine 12/20/2019 8:31 P M EDT 12/20/2019 08:31:00 PM [facility] BASIC METABOLIC PANEL CALCIUM TOTAL BASIC METABOLIC PANEL Routi ne 12/20/2019 8:31 PM EDT 12/20/2019 08:31:00 PM EDT [facility] RADIOLOGIC EXAMINATION ANKLE 2 VIEWS XR ANKLE 2 VIEWS PORT-OR 7 [id number] Routine 12/20/2019 6:21 PM EDT Tibia/fibula fracture 12/20/2019 06:21:06 PM EDT Tibia/fibula fr [facility] Tibia/fibula fracture ORIF ANKLE, CALCANEOUS, PILON ORIF ANKLE, CALCANEOUS, PILON 12/20/2019 4:46 PM EDT right bimalleolar ankle fracture 12/20/2019 04:46:00 P M EDT - 12/20/2019 07:10:00 PM EDT [facility] GLUCOSE QUANTITATIVE BLOOD XCPT REAGENT STRIP POCT GLUCOSE, DOC KED Routine 12/20/2019 7:51 AM EDT 12/20/2019 07:51:00 AM [facility] BLOOD COUNT COMPLETE AUTOMATED CBC AND DIFFERENTIAL Routine 12/20/2019 2:56 AM EDT 12/20/2019 02:56:00 AM EDT [facility] PHOSPHORUS INORGANIC PHOSPHORUS LEVEL Routine 12/20/2019 2:56 AM E DT 12/20/[facility]56[facility] [facility]ESIUM MAGNESIUM LEVEL Routine 12/20/2019 2:56 AM EDT 12/20/2019 02:56:00 AM [facility] BASIC METABOLIC PANEL CALCIUM TOTAL BASIC METABOLIC PANEL Routi ne 12/20/2019 2:56 AM EDT 12/20/2019 02:56:00 AM EDT [facility] GLUCOSE QUANTITATIVE BLOOD XCPT REAGENT STRIP POCT GLUCOSE, DOC KED Routine 12/20/2019 2:53 AM EDT 12/20/2019 02:53:00 AM [facility] EKG ED PHYSICIAN INTERPRETATION EKG ED PHYSICIAN INTERPRETATION Routine 12/19/2019 9:19 PM EDT 12/19/2019 09:19:45 PM [facility] EKG 12-LEAD - CMAXX REPORT EKG 12-LEAD - CMAXX REPORT 12/19/2019 8:37 PM EDT 12/19/2019 08:37:51 PM EDT [facility] EKG 12-LEAD - CMAXX REPORT EKG 12-LEAD - CMAXX REPORT 12/19/2019 8:37 PM EDT 12/19/2019 08:37:51 PM EDT [facility] EKG 12-LEAD EKG 12-LEAD STAT 12/19/2019 8:37 PM EDT 12/19/2019 08:37:51 PM EDT [facility] EKG 12-LEAD - CMAXX REPORT EKG 12-LEAD - CMAXX REPORT 12/19/2019 8:37 PM EDT 12/19/2019 08:37:00 PM EDT [facility] XR CHEST FRONTAL ONLY [id number] XR CHEST FRONTAL ONLY [id number] STAT 12/19/2019 8:15 PM EDT 12/19/2019 08:15:27 PM EDT [facility] PROTHROMBIN TIME PROTIME INR STAT 12/19/2019 8:01 PM EDT 12/19/2019 08:01:00 PM EDT [facility] BLOOD COUNT COMPLETE AUTOMATED CBC STAT 12/19/2019 8:01 P M EDT 12/19/2019 08:01:[address] [facility]LOOD [facility]YP[facility] ABO TYPE AND SCREEN STAT 12/19/2019 8:01 PM EDT 12/19/2019 08:01:[address] HEMOGLOBIN GLYCOSYLATED A1C HEMOGLOBIN A1C Routine 12/19/2019 8:01 PM EDT 12/19/2019 08:01:00 PM EDT [facility] BASIC METABOLIC PANEL CALCIUM TOTAL BASIC METABOLIC PANEL STAT 12/19/2019 8:01 PM EDT 12/19/2019 08:01:00 PM EDT [facility] CT LOWER EXTREMITY W/O CONTRAST MATERIAL CT LOWER EXT REMITY WITHOUT CONTRAST [id number] STAT 12/19/2019 7:12 PM EDT 12/19/2019 07:12 :05 PM EDT [facility] RADEX ANKLE COMPLETE MINIMUM 3 VIEWS XR ANKLE 3 OR MORE VIEWS 7 [id number] STAT 12/19/2019 7:01 PM EDT 12/19/2019 07:01:00 PM EDT [facility] BLOOD COUNT COMPLETE AUTOMATED CBC AND DIFFERENTIAL STAT 12/03/2019 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 [facility] Anaplastic astrocytoma COMPREHENSIVE METABOLIC PANEL COMPREHENSIVE METABOLIC PANEL STA T 12/03/2019 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 [facility] Anaplastic astrocytoma BLOOD COUNT PLATELET AUTOMATED PLATELET COUNT STAT 020 3:35 PM EDT Neoplasm of brain causing mass effect on adjacent structures Thrombocytopenia 11/27/2019 03:35:00 PM EDT Thrombocytope niaNeoplasm of brain causing mass effect on adjacent structures [facility] Thrombocytopenia Neoplasm of brain causing mass effect on adjacent structures TRANSFUSE PLATELET PHERESIS (ONCE) TRANSFUSE PLATELET PHERESIS (ONCE) Routine 11/27/2019 2:58 PM EDT 11/27/2019 02:58:26 PM EDT [facility] COMPREHENSIVE METABOLIC PANEL COMPREHENSIVE METABOLIC PANEL STA T 11/27/2019 1:15 PM EDT Neoplasm of brain causing mass effect on adjacent structures 11/27/2019 01:15:00 PM EDT Neoplasm of brain causing mass effect on adjacent stru ctures [facility] Neoplasm of brain causing mass effect on adjacent structures BLOOD COUNT COMPLETE AUTO&AUTO DIFRNTL WBC COUNT CBC AND DIFFER ENTIAL STAT 11/27/2019 12:50 PM EDT Neoplasm of brain causing mass effect on adjacent structures Thrombocytopenia 11/27/2019 12:50:00 PM EDT Thrombocytope niaNeoplasm of brain causing mass effect on adjacent structures [facility] Thrombocytopenia Neoplasm of brain causing mass effect on adjacent structures BLOOD TYPING ABO TYPE AND SCREEN STAT 11/27/2019 12:50 PM EDT Neoplasm of brain causing mass effect on adjacent structures Thrombocytopenia 11/27/2019 12:50:00 PM EDT Thrombocytope niaNeoplasm of brain causing mass effect on adjacent structures [facility] Thrombocytopenia Neoplasm of brain causing mass effect on adjacent structures PREPARE PLATELET PHERESIS PREPARE PLATELET PHERESIS Routine 11/27/2019 12:33 PM EDT 11/27/2019 12:33:00 PM EDT [facility] Results ID Date Data Source [id number] 03/14/2020 09:47:00 PM EST [facility] Name Value Range Interpretation Code Description Data Karoline rce(s) Supporting Document(s) SARS coronavirus 2 RNA Not Detected [facility] This lab was ordered by [facility] and reported by [facility]. ID Date Data Source [id number] 03/14/2020 07:15:00 PM EST [facility] Name Value Range Interpretation Code Description Data Karoline rce(s) Supporting Document(s) COVID-19 NOT DETECTED [facility] This lab was ordered by [facility] and reported by [facility]. ID Date Data Source [id number] 03/14/2020 07:15:00 PM EST [facility] Name Value Range Interpretation Code Description Data Karoline rce(s) Supporting Document(s) COVID-19 [facility]ENTER NOT DETECTED [facility] This lab was ordered by [facility] and reported by [facility]. ID Date Data Source [id number] 03/13/2020 09:00:00 AM EST [facility] Name Value Range Interpretation Code Description Data Karoline rce(s) Supporting Document(s) SARS coronavirus 2 RNA Not Detected [facility] [place] This lab was ordered by [facility] and reported by [facility]. ID Date Data Source [id number] 03/10/2020 12:15:00 PM EST [facility] Name Value Range Interpretation Code Description Data Karoline rce(s) Supporting Document(s) SARS coronavirus 2 RNA Not Detected [facility] This lab was ordered by [facility] and reported by [facility]. ID Date Data Source [id number] 03/06/2020 10:00:00 AM EST [facility] Name Value Range Interpretation Code Description Data Karoline rce(s) Supporting Document(s) SARS coronavirus 2 RNA [facility] This lab was ordered by [facility] and reported by [facility]. ID Date Data Source [id number] 03/03/2020 11:20:00 AM EST [facility] Name Value Range Interpretation Code Description Data Karoline rce(s) Supporting Document(s) SARS coronavirus 2 RNA [facility] This lab was ordered by [facility] and reported by [facility]. ID Date Data Source [id number] 02/28/2020 11:20:00 AM EST [facility] Name Value Range Interpretation Code Description Data Karoline rce(s) Supporting Document(s) SARS coronavirus 2 RNA [facility] This lab was ordered by [facility] and reported by [facility]. ID Date Data Source [id number] 01/30/2020 01:26:00 PM EST [facility] Name Value Range Interpretation Code Description Data Karoline rce(s) Supporting Document(s) SARS coronavirus 2 RNA [facility] This lab was ordered by [facility] and reported by [facility]. ID Date Data Source [id number] 01/29/2020 04:49:51 PM EST [facility] XR ANKLE 3 OR MORE VIEWS [id number] RESU LTInterpreted by:LISSY Ordoñezlinical history: Status post ORIF right ankleViews: 3 views right ankleIndication: Check for progression of healing right ankleFindings: Posterolaterally applied semitubular plate and screws is seen securing a fracture of the lateral malleolus appears to be anatomic position. Moderate bone healing is appreciated. No evidence of hardware failure. A single lag screw is seen securing the medial malleolus and advanced healing is noted at this location. Ankle mortise and syndesmosis are well preserved.Impression: Moderate to advanced bone healing of right ankle bimalleolar fracture status post ORIFThis document has been electronically signed by Earnest Benson MD on 01/29/2020 4:47 PM Name Value Range Interpretation Code Description Data Karoline rce(s) Supporting Document(s) ID Date Data Source [id number] 01/29/2020 12:04:20 PM [facility] Name Value Range Interpretation Code Description Data Karoline rce(s) Supporting Document(s) Progress Note [facility] MZYCJf2rAfBURuDh87/KOAybIATej9QtFWewZEh0TLkxYALoU1JiKMG5jB7tUPT6MJgIHrYsVmUaDTP0 m [file] J1NLUaKCDiRWSbOdO5BKHuWvSbYRP0HxA2VgMwKT 1KQa6IIdI1GND7fKScZg2CHTj5DQfCBrTjXT4IQBe= ID Date Data Source [id number] 01/29/2020 11:10:00 AM EST [facility] Name Value Range Interpretation Code Description Data Karoline rce(s) Supporting Document(s) Progress Note [facility] YLXEHs3qRgBUPqXq75/YRAqhYNXiv4MdFLfcOKm7PIpmNNRvD1KnORC3eC4sLGI6EKzLNoAaYjAnZUS8 lbm HaGqxMDjPuKVWgSqyRChAvCYunTsihnCKaAH7HfRX7LUAeB94jXZXuASDaP9JaCES8HQS+Oa2ZUDHoaM UpKG3MCptF5Otbl5qYSR8d6N1yLKHzS3T6I1dKjhQAmVvDfHJyaVLf1OCg6FK3fudpkYaeex+gws7O35 MER101ognIpTGYj+soA5sPXh06OMs7stZPPh+/+en6 JjzR8x3/Fo95R444WD/ZJnKBMjzDLS/Dybrf6mmzWDMPW4Yh3NDjYxbeCo+cuBWmAKZ9xxb9EyB6v6Xw k70p8YqIzUbLeBFij8KXQrHfJutz2urjFCLmomp9XQmFA4lyBAPuDGaHXmh0ege8fItffrPzgps2Wsbe fbaeJNmrj17Rl4STSQltneR7AwxsvyP+ORQfeytdGo [file] I4UiMjPXPsIhz1SgXuCG5QOv9QHtG5VWQ0fYLhTo1MQtPzCOEEWkDyVD4ZHKk= ID Date Data Source [id number] 01/17/2020 07:09:22 AM [facility] XR ANKLE 3 OR MORE VIEWS [id number] RESU LTInterpreted by:JALEESA Jennings ANKLECLINICAL STATEMENT: Status post ORIF. Follow-up.TECHNIQUE: 3 views of the right ankle. COMPARISON: Intraoperative films dated 12/20/2019.FINDINGS: Since the prior study, there has been no significant interval change.The patient is again noted to be status post internal fixation of distal tibia and fibula fractures. Fibula fixation plate with interlocking screws appear intact and aligned. A fixation screw traverses the medial malleolus.Gross anatomic alignment is maintained. No acute fracture or dislocation is identified. The joint spaces are preserved and the articular margins are smooth.The visualized soft tissues are within normal limits.IMPRESSION: Since 12/20/2019,Status post ORIF, with stable postoperative changes.This document has been electronically signed by Nj Mireles MD on 01/17/2020 7:07 AM Name Value Range Interpretation Code Description Data Karoline rce(s) Supporting Document(s) ID Date Data Source [id number] 01/15/2020 01:21:21 PM [facility] Name Value Range Interpretation Code Description Data Karoline rce(s) Supporting Document(s) Progress Note [facility] LUPGJq9lLtYGLzBw05/IDAqnWBAtz9FxPGhjZOi0ZMckPOIaG0VsCBV2nM0sVWP3RUyOQdSpKvNaPYIh m BgTgqSJrWmOKXgBxaEVeXhHXqxThweuYEfTE1PiSI4JRLhW40yUCSsWKPcY5SeIUT9Nhf+Km8XBLAznC RtND0UCmtD9WcKkwd8AH4h5G0SnBAxWWE2FNoyQuHQdbRZMliqG26W4S7BENYvJBaEi8W+230CCa9GIs rZlIvGfpA+DDnDuWepZaz6+6zSpdOqDKj0c13OwCT5 Kfv+F3Bec3Y6nNrfANJLyzHqDK1Du4r+6VEDQuD55FpTtxPOMsHRljLi+2LVyy6k212r2ksCcZvtOs6N GcM4plDD+u5PfoUFVUL0Px5EKZlyrFpecyIJCu9NWH9DyPuVDW9tXwu5Uu/3IewE5byYDduKciFaD9be OYpIoOU3vBBBDX8/K/Oah0396nmfB27+nhf6zqCMB+ vzx4CVvMznMXEaOKo24EXNNrAb8LlinAGrkaDdt6Mvj1pLal9v2K9dOuANZ+vkrZBksMiFMM9CrCgEiL monserrat/aWz4lulMAeB+mAhv8b7fxbQQqnpG/vplAxzrWAewMDDaIGN5aNjTvRsWRwMaGkWqdkgYlBmPbTGK [file] DQogICAgICAgICAgICAgICAgICAgICAgICAgICAgICAgICAgICAgICAgICAgICAgICAgICAgICAgICAg ICAgICAgICAgICAgICAgICAgICAgICAgICAgICAgIC AgICAgICAgICAgDQogICAgICAgICAgICAgICAgICAgICAgICAgICAgICAgICAgICAgICAgICAgICAgIC AgICAgICAgICAgICAgICAgICAgICAgICAgICAgICAgICAgICAgICAgICAgICAgICAgICAgDQogICAgIC AgICAgICAgICAgICAgICAgICAgICAgICAgICAgICAg ICAgICAgICAgICAgICAgICAgICAgICAgICAgICAgICAgICAgICAgICAgICAgICAgICAgICAgICAgICAg ICAgDQogICAgICAgICAgICAgICAgICAgICAgICAgICAgICAgICAgICAgICAgICAgICAgICAgICAgICAg ICAgICAgICAgICAgICAgICAgICAgICAgICAgICAgIC AgICAgICAgICAgICAgDQogICAgICAgICAgICAgICAgICAgICAgICAgICAgICAgICAgICAgICAgICAgIC AgICAgICAgICAgICAgICAgICAgICAgICAgICAgICAgICAgICAgICAgICAgICAgICAgICAgICAgDQogIC AgICAgICAgICAgICAgICAgICAgICAgICAgICAgICAg ICAgICAgICAgICAgICAgICAgICAgICAgICAgICAgICAgICAgICAgICAgICAgICAgICAgICAgICAgICAg ICAgICAgDQogICAgICAgICAgICAgICAgICAgICAgICAgICAgICAgICAgICAgICAgICAgICAgICAgICAg ICAgICAgICAgICAgICAgICAgICAgICAgICAgICAgIC AgICAgICAgICAgICAgICAgDQogICAgICAgICAgICAgICAgICAgICAgICAgICAgICAgICAgICAgICAgIC AgICAgICAgICAgICAgICAgICAgICAgICAgICAgICAgICAgICAgICAgICAgICAgICAgICAgICAgICAgDQ ogICAgICAgICAgICAgICAgICAgICAgICAgICAgICAg ICAgICAgICAgICAgICAgICAgICAgICAgICAgICAgICAgICAgICAgICAgICAgICAgICAgICAgICAgICAg ICAgICAgICAgDQogICAgICAgICAgICAgICAgICAgICAgICAgICAgICAgICAgICAgICAgICAgICAgICAg ICAgICAgICAgICAgICAgICAgICAgICAgICAgICAgIC OtPORqEHTfZIDyQNKsWBZkJNSsQAp9B6ckMSYbNDBdYC4xBZa3Ea5+EVsFUrDhMHJ8zlWrsZ6YON6tj2 VsHCbyAASsh7GlJNz4WV6MTTKkZLyiBS2PHBtlit1GWBSvQWNuzEVWl7rtZcNoTGM7JGPyEylsYM6SWZ WpR7xrnwSyDTVnJMYJUV0YKoDnZ1CoeC38TWPQMr8+ LPlvzlLhDsuSHcU3OIKmi6HlEZd0QM8NYWJaHzlid4LjKhVgXPOSMTgnZG9SCVI7OKVkSRYqSc7CHEFn Q807cpCzOL8TXu5NWkRiCO1lsj0GTiJeNPOeEelYHno6XMjcQI1XhMQhEIlEtr8wmhGnplXTd2CntxVc kAURi60ssJunteTDyDFmvdMdfNGaXK8mVS8eNJTsMM DeLcQ3HAYXZQ6VDIWxBKHgcPAeNZMxPUFUVK4LYKziDYK1JNLntzDzfSEvZKitPA7XGTQtlwElCUeaTX BSDQo+Qr0JNH6my4PqMDikKLUzCW3bvn2MANiEUxBlJ9B1fXVqN0H1TPxeWp6FPGYcXMTtRCufDNLZZT hyPZ2WZH9whgC6ZH9MeGNwMMShKQAwgPFnWMt9N65b fWGsXNwrFU7AJNQ+Greta+Aa7IFUVkSHTlUJTgVoZjWZNGOcJqB3TeO1CFb6FoZ1HbQI00tPplwmSnMEkx RL1KKA1oHTIxEDWOYQ4JqCJaoI3hddPjJUUlLAVTNrUwK45mvOWmBHAuMYK2YYMhJp6YECXyW4SqagLx oMzbddVsIMPpXKTIKA5OSGzhchCdiSTlqJycXE81yC jwAK0STd0EMrJoCU7gds7IeSOkSb5YPVBkDx1SQZSsEVNtAUAkOVB2GCGtEvJqHZblVXKuAGMkYDT5RB PiMRUbZJ1LYeRwEQLoRDR7TCAnUQFgTPLqvz5UNAVsNAOvTFS1QMWcVJNlHMYuENlbRYBoQMKdESV6XE ChHPYoZC0LFfLwRQGqNLC5FEFpGKZoOEVvhj1HCSSr VEFxFlJdQEKxCJEvZKZeLAccQOZiXZPfWUP4DCIrGWCtWR5WQnDxXMMlFMJmFaRvMPCjHYWcap6EQXQk YOLzNnE0YRRhXTZxBKTwVNnbJGMwIOD6UzWpBWEvRYAlGM9VItDdHWVeIVO4JYMoUAElHZBbus3YUQJj OHCwWGB8XvGrQYFrADTbEEliGQSaTKY0BKU9RJCqIJ KmQM4JCeLoYOTbULIhVxCeBEDyXALrxo1RBGMnCIXtPjK1TvFsVAJjREHjUVqvYFFnYGW2UYCyWMJbAM WtDA1EBcFzDMZmAPB6GJimFLOdMTBjdq9ZZIEoMMVhUlO5BCUwAFItAUAzCJivWSVnXZD0Bbu7GHIyBZ IjCT2HQdYpGHMkVVn4RqgnSBIrNWXlka8QNHLcZBBs NUPkEgBlXVLhZEUeQPe2fpVzsNHvVRj4LQ7PV4QyzuTyWrXQIl1Fh065SEZxCLPiXe1HG2zmIq7sRAWk KUPPAu3HIKx0Y5M7BNI5HahgKdO5WDylRvPdIkSaLSHuKrxpIhw6HsZ+AAddPJmnQnEcHOT8SLW6XrKt WIOaB4XfHfAoFdOoZZivBw6hGHIZWg3+WJmfmMVjzCjlKLXQQlA3OnQ7OQlwOXDBDa8B ID Date Data Source [id number] 01/15/2020 12:42:10 PM [facility] Name Value Range Interpretation Code Description Data Karoline rce(s) Supporting Document(s) Progress Note [facility] DUGIJt2rSmZEEbWf17/GQXgcXLArl3OsKLylSFz8KPbgLLQoR1DlMQD0xE4dTYB0FRtQVoUcXrUkROVl lbm SlSwuXHaBsJBSbDvkLPgQaOMrpCeqnzNUdSX9QzVU9WMReT97nESAaSJSnR1UqCHGuQgY+Ng6UFECtwE KrEO7QBleV4Zxlu3tRSt1h0I9roWTZHZlpeyTjPGDwlLn0qSfNbWOFKRpTN7NAmKKtCZ8U++zPQ7MqNB FaMcIdDCJ8YFksZMoB/cKRhaj+/XxAkRytBYT0B2/1 QyVGc/EfH3DiPoi0unBj6JMEIKna/OqB/Kstb1JXys1sbzsdBN/nwAOVcE31OswzV50ztuxONN1ZU [file] T0YNCg== ID Date Data Source [id number] 01/01/2020 03:43:38 PM EDT [facility] Name Value Range Interpretation Code Description Data Karoline rce(s) Supporting Document(s) Discharge Summary [facility] PEGHEb6zXzKXNsEt18/KHDjuKZNqd9UsMCzcNOg6WBbgAPKhT5TiRCO9uY9uEKO7VEvGSiJkXlWxJRA8 lbm [file] FyE6BIT5Qx8gAXJZKd5+FItvlEZpyPmuIBNXXpZiYPI9XVtbOVJQEb6E ID Date Data Source [id number] 12/24/2019 01:12:20 PM EDT [facility] Name Value Range Interpretation Code Description Data Karoline rce(s) Supporting Document(s) Glucose [Mass/volume] in Capillary blood by Glucometer 172 mg/dL 70- 140 H [facility] ID Date Data Source [id number] 12/24/2019 01:58:21 PM EDT [facility] Service Cmnt XXX-Imp : NoneRespiratory P CR Panel : PCR ResultsMicroorganism XXX Cult : See Labs Tab for 2019 nCoV RT-PCR resultsHAdV DNA QI WICHO+non-probe : Not DetectedHCoV 229ERNA Nph QI WICHO+non-probe : Not DetectedHCoV RYT7HOT Nph QI WICHO+non-probe : Not QcbuzlgdNQlDBW06 RNA Nph QI WICHO+non-probe : Not VepcdthdMYbBEF81 RNA Upper resp QI WICHO+probe : Not DetectedhMPV RNA Nph QINAA+non-probe : Not DetectedRV+EV RNA Nph QI WICHO+non-probe : Not DetectedFLUAV RNA Nph QI WICHO+ non-probe : Not DetectedFLUBV RNA Nph QI WICHO+non-probe : Not DetectedHPIV1 RNA NphQINAA+non-probe : Not DetectedHPIV2 RNA Nph QINAA+non-probe : Not DetectedHPVI3 RNA Nph WICHO+non-probe : Not DetectedHPIV4 RNA Nph Q WICHO+non-probe : Not DetectedRSV RNA Nph Q WICHO+non-probe : Not DetectedB pert.PT PrmtNph Q WICHO+non-probe : Not DetectedC pneum DNA Nph Q WICHO+non-probe : Not DetectedM pneum DNA Nph Q WICHO+non-probe : Not DetectedB [id number] DNA Nph WICHO+non-probe : Not Detected Name Value Range Interpretation Code Description Data Karoline rce(s) Supporting Document(s) ID Date Data Source [id number] 12/24/2019 01:57:54 PM EDT [facility] Name Value Range Interpretation Code Description Data Karoline rce(s) Supporting Document(s) Specimen source [Identifier] of Unspecified specimen [facility] SARS-CoV-2 RNA 2019 nCoV Real-Time RT-PCR: NOT DETECTED [facility] Assay Performed [facility] Patients first test for [facility] Patient employed in healthcare setting [facility] Patient has symptoms related to [facility] When did you start to experience these symptoms [Date and time] [Phen X] [facility] Patient was hospitalized because of this condition [facility] patient was admitted to ICU for condition [facility] Patient resides in a congregate care setting [facility] status [facility] ID Date Data Source [id number] [facility] Interpretation Code Description Data Karoline rce(s) Supporting Document(s) SARS-CoV-2 RNA [facility] This lab was ordered by [facility] and reported by [facility]. ID Date Data Source [id number] 12/24/2019 07:51:50 AM [facility] Value Range Interpretation Code Description Data Karoline rce(s) Supporting Document(s) Glucose [Mass/volume] in Capillary blood by Glucometer 188 mg/dL 70- 140 H [facility] ID Date Data Source [id number] 12/24/2019 04:20:30 AM [facility] Value Range Interpretation Code Description Data Karoline rce(s) Supporting Document(s) Leukocytes [#/volume] in Blood by Automated count 10.1 10*3/uL 4-10 H [facility] Erythrocytes [#/volume] in Blood by Automated count 2.77 10*6/uL 4.1- 5.3 [facility] Hemoglobin [Mass/volume] in Blood 9.3 g/dL 11.5-15.5 [facility] Hematocrit [Volume Fraction] of Blood by Automated count 26.8 % 3 6-45 [facility] Erythrocyte mean corpuscular volume [Entitic volume] by Auto mated count 96.6 fL 80-96 [facility] Erythrocyte mean corpuscular hemoglobin [Entitic mass] by Automated count 33.4 pg 27-33 [facility] Erythrocyte mean corpuscular hemoglobin concentration [Mass/volume] by Automated count 34.6 g/dL 32.0-[facility] distribution width [Ratio] by Automated count 20.4 % 11.5-14.5 [facility] Platelets [#/volume] in Blood by Automated count 147 10*3/uL 150-400 [facility] ID Date Data Source [id number] [facility] Code Description Data Karoline rce(s) Supporting Document(s) Glucose [Mass/volume] in Capillary blood by Glucometer 235 mg/dL 70- 140 [facility] ID Date Data Source [id number] 12/23/2019 05:04:30 PM [facility] Value Range Interpretation Code Description Data Karoline rce(s) Supporting Document(s) Glucose [Mass/volume] in Capillary blood by Glucometer 218 mg/dL 70- 140 [facility] ID Date Data Source [id number] 12/23/2019 07:57:05 AM [facility] Value Range Interpretation Code Description Data Karoline rce(s) Supporting Document(s) Glucose [Mass/volume] in Capillary blood by Glucometer 183 mg/dL 70- 140 [facility] ID Date Data Source [id number] 12/23/2019 06:19:29 AM [facility] Value Range Interpretation Code Description Data Karoline rce(s) Supporting Document(s) Leukocytes [#/volume] in Blood by Automated count 8.1 10*3/uL 4-10 [facility] Erythrocytes [#/volume] in Blood by Automated count 2.75 10*6/uL 4.1- 5.3 [facility] Hemoglobin [Mass/volume] in Blood 9.3 g/dL 11.5-15.5 [facility] Hematocrit [Volume Fraction] of Blood by Automated count 26.6 % 3 6-45 [facility] Erythrocyte mean corpuscular volume [Entitic volume] by Auto mated count 96.8 fL 80-96 [facility] Erythrocyte mean corpuscular hemoglobin [Entitic mass] by Automated count 33.9 pg 27-33 [facility] Erythrocyte mean corpuscular hemoglobin concentration [Mass/volume] by Automated count 35.0 g/dL 32.0-[facility] Eryth[facility] distribution width [Ratio] by Automated count 20.1 % 11.5-14.5 [facility] Platelets [#/volume] in Blood by Automated count 142 10*3/uL 150-400 [facility] ID Date Data Source [id number] 12/23/2019 06:23:04 AM [facility] Value Range Interpretation Code Description Data Karoline rce(s) Supporting Document(s) Magnesium [Mass/volume] in Serum or Plasma 2.1 mg/dL 1.6-2.6 [facility] ID Date Data Source [id number] 12/23/2019 06:23:04 AM [facility] Name Value Range Interpretation Code Description Data Karoline rce(s) Supporting Document(s) Bicarbonate [Moles/volume] in Serum 25 mmol/L 22-29 [facility] Chloride [Moles/volume] in Serum or Plasma 101 mmol/L 98-107 [facility] Creatinine [Mass/volume] in Serum or Plasma 0.56 mg/dL 0.50-0.90 [facility] Glucose [Mass/volume] in Serum or Plasma 170 mg/dL 70-140 [facility] Potassium [Moles/volume] in Serum or Plasma 3.6 mmol/L 3.4-5.1 [facility] Sodium [Moles/volume] in Serum or Plasma 135 mmol/L 136-145 [facility] Urea nitrogen [Mass/volume] in Serum or Plasma 13 mg/dL 6-20 [facility] Anion gap 3 in Serum or Plasma 9 mmol/L 8-15 [facility] Osmolality of Serum or Plasma by calculation 284 mosm/kg 275-300 [facility] Creatinine/Urea nitrogen [Mass Ratio] in Serum or Plasma 23 [facility] Calcium [Mass/volume] in Serum or Plasma 8.7 mg/dL 8.6-10.0 [facility] Glomerular filtration rate/1.73 sq M pre dicted among non-blacks [Volume Rate/Area] in Serum or Plasma by Creatinine-based formula (MDRD) >6 0 [facility] Glomerular filtration rate/1.73 sq M pre dicted among blacks [Volume Rate/Area] in Serum or Plasma by Creatinine-based formula (MDRD) >60 [facility] ID Date Data Source [id number] 12/23/2019 06:23:04 AM [facility] Name Value Range Interpretation Code Description Data Karoline rce(s) Supporting Document(s) Phosphate [Mass/volume] in Serum or Plasma 2.2 mg/dL 2.5-4.5 [facility] ID Date Data Source [id number] 12/23/2019 12:50:52 AM [facility] Value Range Interpretation Code Description Data Karoline rce(s) Supporting Document(s) Glucose [Mass/volume] in Capillary blood by Glucometer 204 mg/dL 70- 140 [facility] ID Date Data Source [id number] 12/22/2019 05:27:35 PM EDT [facility] Name Value Range Interpretation Code Description Data Karoline rce(s) Supporting Document(s) Glucose [Mass/volume] in Capillary blood by Glucometer 218 mg/dL 70- 140 [facility] ID Date Data Source [id number] 12/22/2019 08:24:59 AM EDT [facility] Name Value Range Interpretation Code Description Data Karoline rce(s) Supporting Document(s) Progress Note [facility] HWHNQw3vWaSJWnOd15/ZVXxeXADte3XyRVzxIIl9AJjqURBjT4VmVMZ1iB2aXAW0UMpFLsPnZjEqSPC1 lbm [file] AgICAgICAgICAgICAgICAgICAgICAgICAgICAgICAg ICAgICAgICAgICAgICAgICAgICAgICAgICAgICANCiAgICAgICAgICAgICAgICAgICAgICAgICAgICAg ICAgICAgICAgICAgICAgICAgICAgICAgICAgICAgICAgICAgICAgICAgICAgICAgICAgICAgICAgICAg ICAgICAgICAgICANCiAgICAgICAgICAgICAgICAgIC AgICAgICAgICAgICAgICAgICAgICAgICAgICAgICAgICAgICAgICAgICAgICAgICAgICAgICAgICAgIC AgICAgICAgICAgICAgICAgICAgICANCiAgICAgICAgICAgICAgICAgICAgICAgICAgICAgICAgICAgIC AgICAgICAgICAgICAgICAgICAgICAgICAgICAgICAg ICAgICAgICAgICAgICAgICAgICAgICAgICAgICAgICANCiAgICAgICAgICAgICAgICAgICAgICAgICAg ICAgICAgICAgICAgICAgICAgICAgICAgICAgICAgICAgICAgICAgICAgICAgICAgICAgICAgICAgICAg ICAgICAgICAgICAgICANCiAgICAgICAgICAgICAgIC AgICAgICAgICAgICAgICAgICAgICAgICAgICAgICAgICAgICAgICAgICAgICAgICAgICAgICAgICAgIC AgICAgICAgICAgICAgICAgICAgICAgICANCiAgICAgICAgICAgICAgICAgICAgICAgICAgICAgICAgIC AgICAgICAgICAgICAgICAgICAgICAgICAgICAgICAg ICAgICAgICAgICAgICAgICAgICAgICAgICAgICAgICAgICANCiAgICAgICAgICAgICAgICAgICAgICAg ICAgICAgICAgICAgICAgICAgICAgICAgICAgICAgICAgICAgICAgICAgICAgICAgICAgICAgICAgICAg ICAgICAgICAgICAgICAgICANCiAgICAgICAgICAgIC AgICAgICAgICAgICAgICAgICAgICAgICAgICAgICAgICAgICAgICAgICAgICAgICAgICAgICAgICAgIC AgICAgICAgICAgICAgICAgICAgICAgICAgICANCiAgICAgICAgICAgICAgICAgICAgICAgICAgICAgIC AgICAgICAgICAgICAgICAgICAgICAgICAgICAgICAg ICAgICAgICAgICAgICAgICAgICAgICAgICAgICAgICAgICAgICANCjw/sRRzA2lhzCFcmtC8E9qqZz5X Fy6HVW7dq3GoCVPxFOgeuaIpOxeMAlGsIOQkOooPJug3ABtuQI7RmGXmQ6MiM9BxKVdvQS5BCBBaNAPk lZJiWUUvPDWmVjW5HDVrMAcgQA9BnSDhYImsVDJgYT SbKuErXCMpFJChWNOxJTTbQHJYXVQtGFJjAjOnYXSgYLEcQY2YBRDpT350acAfWo1JJv1VRrVtUH5otf 4KHoYvVZWyYqhNUri9XJshXI4SlDVtnUPyIyPeEEQXOlSaY3bhm2XvKvXoHOEUWXckLI5Td8ZmyZRfZJ o+Gm1YZE4zc4QkNXwiVjSsOG3rup5QIYdAFvUgG1Nj eThdJGGnp3xxAYZiXA6miKGuWWO5OSnra1ElX2NpVKMOHGLsB9gbdkkeJqWwNIDuPX4sXn3pDKSlKFCb TgE2CGEVSF1UNQSwRRZzhKNwUUYoDEKBFN0DNWdfIXJ3PXNcidHmbGLrYOyvMA8BRRLgrvUgGcXlVXNN DQo+Lt5YSN5dc1HiHGmkSbMhHT6tsv9JTNyNIcReE9 I7pPHpY4K0VItsKo0QNZUzZQKuZtQuAVWUTNddPL7NHV8ctaJ4ZH7LyXGaSPCvDCGniLEmPJk3N67idW IaJOmxEW6IZHU+Greta+Xq6STCPuGQTyGOEeLwLiGIRKJxKjH5AmC0TZa2DrA8KuKM57aBqcvnEaUCnpVJ 3DJA0cPPQyGLQCUK6OoDHqdV4zcqOeWGAbAGTCQcCu Q13cxVZnYUJzRMZ8OEXmYm6RKRGeL5AethGyfDeafcKcECHyCYYUDG1TDBwotuYtzGOdfPdqJO03cHgp XM2JEe6HWfQsWT4dkc2HsUOlQh5CDBWxFI7EWODzRVAwXTSlFJD2GTUzIsXrEPpuJLLcZBTxSWA8UYZx YAXuPY7DLkRgNXPnCPZ5NwytGHSnBIWuue0USVZdUH J6MZTuWISzTAXgQKKxHAqfXSIpABKyGRR0QZFvGTPnBU8XUfBtOVBpIJI3DKDgBDBdNFKqgb6FCZEiMH IdVSx8MmMpHGXpKBYeJHgwDQNlGDG4EwMdMZLrNRZiHQ6ZPgHdYGJzIOo7YeUuNPRlVTCruu5TXVWxGE QaLiTtZCUaHZPlHPEtLDujHJWuAXMjTqU6GMZbAVLq II2UWaQxWMOvHYznIXPgYQGhOQMals9XLWOeKHZiLlO4SQMmZOYhVMTiXAkkAKWmPYPqNYJhTOJwKEYq LU6SFoOhOEIgDkNcMcxpCICtGEKufc2DCKQnBKFtDMJ1GsUvLQSqMDPnNVvdKZCdERG8GJboSZPqIQMg BB6ZAvAjHMVrKxR0GDJnYWZkPMOizp6NXRIcBBFbVt A1YUNrZKWlVMOqOJolVXDsYYS6BdDuHSBwYSZcXR1YOgTtHVFyIgqcWLIdGDEfIDTaut3YAZYtJWZiBx Z7WvKxZZWwJLAmEEfxVHInXYR4QZweRHObNHGdAG3RVxHgVFKfDxmoNDKkXFGgGVIaoq6BBDVeWKQuLB XrAnBqQXRoZSOdKIsfGFSbOIW7MWM4KNDcPLKqXW0B ObSwVSXbRtg2RTPnYEAoPJTgvg0JVAQpJBNbHSp2TCKsRIZeHYKvPUtfLMLfBCWpILl4ZPGeBHIfVQ4T HeTiBLEoIUEwHjLdLIFpVIPmij0VLNKgVLX3AUCrSqCvTDTkCXYbDNgnZQFgXNFeYWdhINUrUHNmYD7I MqYmYPEdWNFzRwaaULTtTTCwru8LJARbKXL6TiN4Hc HhJBQsVRIkZTwiRIVbCKBaDVqgSWIfZHRvET9POaWzNMCiSDN7NLFjYGBeFMLuwy8AAWHxXVD0UKZkOc FdOGAqJHSfWZulXZFvSFW6Plg1GSLsYFGxYK7JBaDcLZfqWXAPYhs9WQyhO0u0LWPkUM9CX2Azq7RwLy dfAZEEOUvfUS7uolVtTIRlDp8CS2mRNxynKSg5Sngq JVOzOzh7OzspHJT7S0IqPFZ2YXIzDTE5CB7wHGB4WAGbEGM8DeBjQEw4MXGnRmf8GUK9QIRePTVwVMj1 JaHqHN2ZDa2YAbT4LLW0yBOjTw5FRRA5QXyYSlAcNT5XHSs= ID Date Data Source [id number] [facility]2019 [facility]27[facility] Value [facility] Interpretation Code Description Data Karoline rce(s) Supporting Document(s) Glucose [Mass/volume] in Capillary blood by Glucometer 108 mg/dL 70- 140 [facility] ID Date Data Source [id number] 12/22[facility]2019 05:48[facility] Value Range Interpretation Code Description Data Karoline rce(s) Supporting Document(s) Leukocytes [#/volume] in Blood by Automated count 9.9 10*3/uL 4-10 [facility] Erythrocytes [#/volume] in Blood by Automated count 2.84 10*6/uL 4.1- 5.3 L [facility] Hemoglobin [Mass/volume] in Blood 9.5 g/dL 11.5-15.5 [facility] Hematocrit [Volume Fraction] of Blood by Automated count 27.6 % 3 6-45 [facility] Erythrocyte mean corpuscular volume [Entitic volume] by Auto mated count 97.2 fL 80-96 [facility] Erythrocyte mean corpuscular hemoglobin [Entitic mass] by Automated count 33.5 pg 27-33 [facility] Erythrocyte mean corpuscular hemoglobin concentration [Mass/volume] by Automated count 34.5 g/dL 32.0-36.[facility] Erythrocyte distribution width [Ratio] by Automated count 20.0 % 11.5-14.5 [facility] Platelets [#/volume] in Blood by Automated count 144 10*3/uL 150-400 [facility] ID Date Data Source [id number] 12/22/2019 06:04:29 AM EDT [facility] Name Value Range Interpretation Code Description Data Karoline rce(s) Supporting Document(s) Bicarbonate [Moles/volume] in Serum 27 mmol/L 22-29 [facility] Chloride [Moles/volume] in Serum or Plasma 101 mmol/L 98-107 [facility] Creatinine [Mass/volume] in Serum or Plasma 0.68 mg/dL 0.50-0.90 [facility] Glucose [Mass/volume] in Serum or Plasma 160 mg/dL 70-140 [facility] Potassium [Moles/volume] in Serum or Plasma 3.1 mmol/L 3.4-5.1 [facility] Sodium [Moles/volume] in Serum or Plasma 139 mmol/L 136-145 [facility] Urea nitrogen [Mass/volume] in Serum or Plasma 10 mg/dL 6-20 [facility] Anion gap 3 in Serum or Plasma 11 mmol/L 8-15 [facility] Osmolality of Serum or Plasma by calculation 290 mosm/kg 275-300 [facility] Creatinine/Urea nitrogen [Mass Ratio] in Serum or Plasma 15 [facility] Calcium [Mass/volume] in Serum or Plasma 8.6 mg/dL 8.6-10.0 [facility] Glomerular filtration rate/1.73 sq M pre dicted among non-blacks [Volume Rate/Area] in Serum or Plasma by Creatinine-based formula (MDRD) >6 0 [facility] Glomerular filtration rate/1.73 sq M pre dicted among blacks [Volume Rate/Area] in Serum or Plasma by Creatinine-based formula (MDRD) >60 [facility] ID Date Data Source [id number] 12/22/2019 06:04:29 AM EDT [facility] Name Value Range Interpretation Code Description Data Karoline rce(s) Supporting Document(s) Magnesium [Mass/volume] in Serum or Plasma 2.1 mg/dL 1.6-2.6 [facility] ID Date Data Source [id number] 12/22/2019 06:04:29 AM EDT [facility] Value Range Interpretation Code Description Data Karoline rce(s) Supporting Document(s) Phosphate [Mass/volume] in Serum or Plasma 2.1 mg/dL 2.5-4.5 L [facility] ID Date Data Source [id number] 12/22/2019 12:47:12 AM EDT [facility] Value Range Interpretation Code Description Data Karoline rce(s) Supporting Document(s) Glucose [Mass/volume] in Capillary blood by Glucometer 227 mg/dL 70- 140 [facility] ID Date Data Source [id number] 12/21/2019 07:19:47 PM EDT [facility] Value Range Interpretation Code Description Data Karoline rce(s) Supporting Document(s) ED Provider Note [facility] PMWCFm7qLqWYKqNp93/HWTmjQXSih9LlWLifOAl8BOtkEPWcR5HcZYW1wG9bKUR1UHoJUjXuWiLnAYA9 lbm [file] AgICAgICAgICAgICAgICAgICAgICAgICAgICAgICAg ICAgICAgICAgICAgICAgICAgICAgICAgICAgICAgICAgICAgICAgICAgICAgICAgICAgICAgICAgICAg ZWYpXN6ZUNSeVIFsXNRaMKOiIDUjPKBcUONaYNYvHHMnIKSjEPTlCODiEMIsURZiCMVeWUJsAKUzVLDu ICAgICAgICAgICAgICAgICAgICAgICAgICAgICAgIC LkZBDyXYKxSEQiGZJkQD6HOWMpGKXeGPOqUAJvWLDsFNEkQRXcOKHsXRPvMEKqALPxECRmLCIwSUCsUZ NpPXSyQMOoEJXjWIIpLAScZGMxWEVdBQZhUROyZMKyNXHeZVNxRTCvIPGsWNQkOUTqHSGzHOCnFT3PKD AgICAgICAgICAgICAgICAgICAgICAgICAgICAgICAg ICAgICAgICAgICAgICAgICAgICAgICAgICAgICAgICAgICAgICAgICAgICAgICAgICAgICAgICAgICAg EVVaQDWkFJ4WXUWjYSCpMEGbBDAjGHWuNMSyGQRzYUChAUChODZuQZQrOGLrZDKiWMMdXLBaVRBkLIJh ICAgICAgICAgICAgICAgICAgICAgICAgICAgICAgIC TvISErLUOsAELgWCXjUESlXK7ANOJkYODtKMDaEJImJZYdVDXnWCVuJGUpHZEuCVCzGSSwDWBxJARqBB AgICAgICAgICAgICAgICAgICAgICAgICAgICAgICAgICAgICAgICAgICAgICAgICAgICAgICAgICAgIA 0KICAgICAgICAgICAgICAgICAgICAgICAgICAgICAg ICAgICAgICAgICAgICAgICAgICAgICAgICAgICAgICAgICAgICAgICAgICAgICAgICAgICAgICAgICAg UPHqQEPoOUKqWM5TOJWfHJYuDSVkIZFmQXQeMBYhRZPjOZWvNYPiWVEpMHLuCWMaIKMzLWJwFSNbGFRk ICAgICAgICAgICAgICAgICAgICAgICAgICAgICAgIC XlWRSiQPAlCNPrDWOdEZZiLWWyTC8PHMMuKUDdTYEwZCRmFWLySBNuRXCcZIToYITvGLYyFRUfEQLuWY AgICAgICAgICAgICAgICAgICAgICAgICAgICAgICAgICAgICAgICAgICAgICAgICAgICAgICAgICAgIC WpVR9KXS59nLYjx3G2DQUzES1qhxt/Eq0UPJgixiHc xRKoGR2SXhRrRP2ixo7EPvTpFS4rxc9KZBaLPhPgM4G7jGQtPFPlBOJUCnDdT67jGRxgCx46RTypUYWh WeIoNYk7Jd5GGgPgU5riYMYfCoI5FXHrRdC9QOCrAlS5FVTuAoPbDNYxAGLjWGGmGZNJCAO9GCNpLzZv NyAwIFIgMTkgMCBSIDIxIDAgUiAyMyAwIFIgMjUgMC AETPT1QKDsKbQsQOFeSSEaDH7EEMCzA839rbLiRKFPYn7+CBbtflTxUwgTZuM9YAXra7DdCAa4WU0PEP PlCvsgx6SkMEbmKFZRVCkrML5ZEYS2YWEjSTJgGh3XGGZzU822wwSgPB1IXj7JXmLpKR9nkl6BYHrfQY FoFztHGfc4CEumPO3AwPOuTIgSTPGFzx41tGQyeeKH f7XcjhFtyHPNjqHot7M2QTmdR4BhRSDGXxRxbBOfYG2fYJ2aPAUdBAX3MpLsYIQXQO8YFERxACFggLMk PDHmLAIGWC7KARnnYAT3IhKdpvKorALtAVjgVB4MOEVthiIgWFWsXDPOVMnwNG9DpVMstEP9DWRpRTIJ IbKfP0hiv2QrGUojXEHENEkmMG1Hk2GolLToLW7EOX CyOhF7dGD6YNCvKMBFRf2+DQfmfrNpNtqILlK2YYMah4DoJPm2UZ4WVUVqOZs7mRHsBkMti0thhlEoAP 7YMXYoXSXwvWRsJUKuITHjAhNfPItuVBBjFdlwdnYvnJLqNHwtGD8VYDPffcPuVBleTLVVJXw+Pg0KZW 8qd1KwLAw6OXCbBK1gqp3URGcZQoJwW7MynGtxCTUR NISvn4NdFUIgTA5ryDVfTFO1VGwzXDseqszqSuMWiP7sORFQLVI5MCCpLuQ3KiCbReSjSBX9XfWfUJ7m OGjmQD8EAQV2BToiBYjbQWPJJQ8KAXohGXRwMsngrySxgHYmLZtfIY3PRHTdrnYvHYMuHFYMJEvaTJ4L ddD6LQO9SHPnHr3JJNGxCzP4iNF8ESBaGNQXSr6+DQ wnajDxUwjRDiQuDJOsg0JdAWf6LW1TWWOuEMr5cTXmDJJzG0ZzoNJfurLgyWXDvtCos9W1OJmrS6BkDV MKPqVhrKEbVV8nTD4zTERpPKL9SgR2LXCZYG9KIOXnYCJaxPCzFUR1VSAhVrNrRRcxPCRbJSA0BJ61qG ukBV5NVTNgXTLkBJ14MES2HYEsEa1JRJNrRKXumxR6 WMWiVHGVIdWwH76ncFYrNOItITKHXMu+Ji4MIW9mc8MgGPe2RXZsLU5xfr7OHSzMKxRzA3DfeQgqCLOQ SJMguNTpXFCXw1CrkmAorGAQQIPhfGIrOd0iOZMMJgOhxBOrEL4qDH8mHFRmYDQ8IoWuBZKGGD0OWQOd LSUalNRdIQB7OTGwDwZwRZfnBCXhNhX0DO33yHgkDE 8LWHXyQIZgKL53TFD6YWViIa2CBKHjBUNhokB7GAMbWXCKRp0+FEuzdaXlIxpAVgZkVZZuv3DjATx8EJ 4ATYSzQYfgHX9UDLObgI3lLSawXP8JHjK7WWMuLIDFGqOiR39roELeBJw3W4TgDjAiKHWwPybdREPwBZ wvTmFtZXMgWyBdDQogID4+ID4+ZCtjYQ6PTStuzkAy DAEtNo2RWZIhEWRnKL2iECYkTRRtL7R8mNdxRINVCmWgO0uxuxiwID5tVQBpP331jJgdqlWvAKP6NSSi Jc5XKETuSWF3MKNukJGoBPYoZETTAYdgDU4FwTFaZXO7aC6bQLlwMBQbRVMcZ6xHIzJzuYqfXV82oBmp bnVsbCBdDQo+Yd9RIG3ur3XuVRn3mrVnHCgvEVRyFC qgSSYqMCThGWUpWCQ1CYZ6QPFDPaYlTQKcISGwVKlvGBAjUFXmje5IKUHlACZ5AZNvHuDyKJOlGNSvKY ufHXHaPEX3AcV3MWOjAUBsVY6TQnYlBMDnQCJiNSkuJJRwFGYiff3ZQVBzALMdStWpPHHrLOSdZUNoMW swWMSnSEDzYUK6XBRqLDMhVA6WUzGwKAEdOCQ8ERZh EWFdQCLiqz6AHIFoAMGbAvB6WCXzIGBoKKFaAQdkSOBjDEV8YwZqLKUhJPGfMS3FMoWyAOUbLDz2Admp UTQjUKOwge1UOAXdQJRuPjE3NWGiRTBeBOHiSYxrXVGnTOLwNuF2TNCsWCGcFY8PWzLtXMUjIUY3FQAn VBYmPKJnyh7FXUQjSSVaNtHyPkJhNTZdSPMbQRtxBR ToPAU0JUi2JSOkOUQvJP4RKbBbDZIvPCqpPCYdAVUjETTkep0VGOTdRGRfWTX9INMyNXBfKRFqURlxCT YkQUVwSMi5HAMtTNCuAM4DPbGzOBPpYaR4TpCuCAGySDQnik7QHRWwPOHaZDpuGMUrMPJrMEReROchCG XoMAJ8YKWuNIGfNOIfAW3HHfHwWFKmJihiUaTlMEHm EXYwad1WPGRaUCOmZJCcCYArYTWkIWSoOQjzVBIzLNAvNIN3NOOgRYTzXG2QBgWsGWVaQqG4PuewHTVi SRUrqf1TIBBhVGDqGyJfDgYkOJHhLMIkUImuRVFiWGL7UBX4AOBnWGFuKB6JDpPbJADlBlRtPyVzCERl IAZlvc2MSFBzYOAeFlHtMqHmCSWrIHEhFAnlHAFwJZ L7BgB6BICeHJKpAX0SVsRgLPJtJzf9XXpqYIQlDTGogj7SGUMjFGFwMVz5CBAfNQZoFOXkQYvrAKIsPK S5HPK3IJHeEJIlSX4CGwJaXSIuRNVkEdozEFPsDRFttp4YOTBfUFL9QNGmTTYpWKHfFJVwONkfYCBqEV QmCME2DGCkQDTcAW7CDqJdSOSlDND6JVWaBMIpIUNc eh8IODUwTXJ5EmAxRKPtHFEgPVAjYBbiQYHkNGAcVmA7QBIeQRZvVW2STkSeKFOoNOY9RwnsJNEoTFLs px3WTDGiGNA5QnagNVAnTGNuXXJdOSjyMTRbFSFqBjA2GVOmYAHmZK5YMiKbYLUqUCB9OlygSTCkPJKf vb1OJFDoPXV2HCYpBWFuNYMbDYWpWSrfWONfDBI7JO Z0IKVeFHDdYU6RFuKsXXXpTGF9OYreQXMsBHApcf5TDAIlFAU3RuLnTYYbPCBtJQUjPDfaPFEdULX1Ow VaDFEtXFIdLJ6DQnJdXJWrEEUlBiVtIGLeNHKaen2LUQJfWFD4OlLqJIOtNHOcXIGmRUsdZGQiCGS5Zq l9OCQeBZBtIP7ZGiAdMYVeEUM3MhGqDFHvQIAomz3S wAYzuVreof8HPAdWXa4GeSrfOMHiGEghNk8rmYP3EfPyPTIKHh3PcfLzXILrXCEZYCjrPOKhHEJ1PLKj MBrzYIK5OwO4AMf3LYmsJUN0UQDbYWGhWdy9DaO4FAo2QaGiGRHrSBUnKsSvJYL5FqQ2TlBbOlMfKPIf OTc+GN4eJBf+Yl6Pw3JhejK5jkTlEWh6MbQiXJ1ZSKVAL4QVGr== ID Date Data Source [id number] 12/21/2019 05:42:17 PM EDT [facility] Name Value Range Interpretation Code Description Data Karoline rce(s) Supporting Document(s) Glucose [Mass/volume] in Capillary blood by Glucometer 161 mg/dL 70- 140 [facility] ID Date Data Source [id number] [facility]2019 [facility]:32[facility] Interpretation Code Description Data Karoline rce(s) Supporting Document(s) Glucose [Mass/volume] in Capillary blood by Glucometer 213 mg/dL 70- 140 [facility] ID Date Data Source [id number] 12/21/2019 08:54:49 AM EDT [facility] XR ANKLE 2 VIEWS [place] [id number] RESU LTInterpreted by:Neftaly Moore, MDPortable right ankle in the operating room dated 12/20/2019.REASON FOR STUDY: FractureFINDINGS: The C-arm was utilized in the operating room for assistance in plate and screw fixation of a distal fibular and medial malleoli fractures. Alignment achieved appears to be anatomic. A total of 14 images were saved from this procedure.Total fluoroscopy time for the study was 22.6 seconds.This document has been electronically signed by Neftaly Moore MD on 12/21/2019 8:52 AM Name Value Range Interpretation Code Description Data Karoline rce(s) Supporting Document(s) ID Date Data Source [id number] 12/21/2019 08:39:46 AM T [facility] Name Value Range Interpretation Code Description Data Karoline rce(s) Supporting Document(s) Consultation [facility] RULUEu8hRoPCWuLb36/LXAjjVBAvr0VdOMrkLIj2IPrzXQGlO1DeQPU0kU2qMLJ4MJdQQmKuXoTeWBB6 lbm [file] AgICAgICAgICAgICAgICAgICAgICAgICAgICAgICAgICAgICAgICAgICAgICAgICAgICAgICAgICAgIC AgICAgICAgICAgICAgICANCiAgICAgICAgICAgICAg ICAgICAgICAgICAgICAgICAgICAgICAgICAgICAgICAgICAgICAgICAgICAgICAgICAgICAgICAgICAg ICAgICAgICAgICAgICAgICAgICAgICAgICANCiAgICAgICAgICAgICAgICAgICAgICAgICAgICAgICAg ICAgICAgICAgICAgICAgICAgICAgICAgICAgICAgIC AgICAgICAgICAgICAgICAgICAgICAgICAgICAgICAgICAgICANCiAgICAgICAgICAgICAgICAgICAgIC AgICAgICAgICAgICAgICAgICAgICAgICAgICAgICAgICAgICAgICAgICAgICAgICAgICAgICAgICAgIC AgICAgICAgICAgICAgICAgICANCiAgICAgICAgICAg ICAgICAgICAgICAgICAgICAgICAgICAgICAgICAgICAgICAgICAgICAgICAgICAgICAgICAgICAgICAg ICAgICAgICAgICAgICAgICAgICAgICAgICAgICANCiAgICAgICAgICAgICAgICAgICAgICAgICAgICAg ICAgICAgICAgICAgICAgICAgICAgICAgICAgICAgIC AgICAgICAgICAgICAgICAgICAgICAgICAgICAgICAgICAgICAgICANCiAgICAgICAgICAgICAgICAgIC AgICAgICAgICAgICAgICAgICAgICAgICAgICAgICAgICAgICAgICAgICAgICAgICAgICAgICAgICAgIC AgICAgICAgICAgICAgICAgICAgICANCiAgICAgICAg ICAgICAgICAgICAgICAgICAgICAgICAgICAgICAgICAgICAgICAgICAgICAgICAgICAgICAgICAgICAg ICAgICAgICAgICAgICAgICAgICAgICAgICAgICAgICANCiAgICAgICAgICAgICAgICAgICAgICAgICAg ICAgICAgICAgICAgICAgICAgICAgICAgICAgICAgIC AgICAgICAgICAgICAgICAgICAgICAgICAgICAgICAgICAgICAgICAgICANCiAgICAgICAgICAgICAgIC AgICAgICAgICAgICAgICAgICAgICAgICAgICAgICAgICAgICAgICAgICAgICAgICAgICAgICAgICAgIC AgICAgICAgICAgICAgICAgICAgICAgICANCjw/eHBh W7gumTFpzbX9D1kgEz8LAh8YUJ6ii9GkRZEsLNupluQhUslDMbMmJSCtVioEFss0MBdvSE8OpQLrV3Km B8SmPEjmWL1UMAExASUgvSErELZcOHKxOtI8ZWPwQSuxEB7YrZArLGcmDDXmPDPmQfQuHDKqVHBqTINw HXXfXGIUVNKyOPTaKqTjXAMvJYSzBP4QTPKmD762wy ZdXr6ZAn3VToRrVE0yky2CWsTzJVFzVkmAMis0GYisAM5OtQRxjNZmDmBwZXTMSqThW7udl3UeEpBwWW QDNJpzZT8Qu5TysGKvQVt+Mn6XAJ6yn1WoDHynMdKkYG6jsz4DTWvGVwGqU0EhsCwdPFEkymB4dWKeWX C2DEiobQZckV3lJUbemvPiBWFPPvZhvLSkDS9sXS7s HGWnSHQoRnUxTXPPPD7DTTGiPCDkkUSmWYIhMKKTOR4HWDarNIU1YFCfhfIixZIjXIafVO4VPFGeavBe MzIgMCBSDQo+Rl0OPI9wf1AiLMlbOPQgGA8wok9KDVmSIwKuH5S8pXSzI5Y1AWgpRx1WSVMwGEObGiSb LIFZKYnyQJ0RKL0dptC1DF7VmMTmCZJkHUHqgSRcIX m4O21lcVRjDFhoYN7QTVG+Greta+Cb8LQFJvWXWnYFLeAfTwRZVZSaXdJ9VxT9KSp5KoT0RnNE29zZprfw DpPVefUW2ZKZ8eRUAkMKHKSG7YgFMelW3qhxPdXvAoWMMHOmLoF90ziEFlMSYdZHZmYFKbZa4YBZGoG2 OoaxNavQouhdBzJZUtYWRZDT4OANwnzhVokZLrdUdo AS74tKdpWD6CIn0YHrNyEZ0pir6GwXXvCq0NRUMuRK5KHQUlKULqXWVdWID2QFHvMqPaXMjkAOBrVLDp LYT4AVZyPTEeIN7GVyHrRWMmBhEkAfelLYVwSJNpzc5QGWGvJVAlNhDrOoFhRSOuBZCbJVqwWJVvELEh OAM4ZAWsVNKrSB6NBpGmZORyPIFhQMRjVROhLFPivw 1ZWCKeKGKmDRIjIMFaKTXwHHLmYVpcRMYkCGF0VGXsNDYmTPRmBD0KJpTdUTIjYDB0AIqwEDUgUOGaem 8PWVAbHZZwUBUpLqPrLUXqMOOzXEjaMWExCJG6DlWoEWWfWJZqCF6MKnKwSXLdMDJvAiehKSXnEALlzx 2SWIUvZQDlXnOcPGAcEWTmBSOzVMuaADVcNKW3Eli2 AUEhDJTzWD2VLtPpJFRpFHC7PIRuBRQhCAUsxi4TYMKhDIXaQIhqJYYxCBBpKVCvDDozKFLfNMO6PPHb DENeCCKdWZ0KOjCfCXWmSVx3UQPcMYDkNFZirb1OYAWfALKqPXY9JgVpPCEgADStWMiqBBKaEMLwMqVj MLZiWAWtYQ0XUnSmSPMjSyPnZFmiUSYmXDQaqr7BMS FhCOJoSJTjOKOlYYOkOVUoLBfzKQKkKZLxLfZ8GZFtYJZoGW0GFdIsHQIoEqW0RjijCNUsJWMjci3CUK MiLSYxGgz1ZwHoZIYzNSJrASggWPMhMHAsOMO9DBHsOEObSG0BInZyFIFdRdKuNdAkICUeZPBlgv6DHO MgRQUmFFX2OsNnKOBaTQDlAHfzNXYsFCE6YVMyBQTz OQIfAJ1WSaDmSDHjXzClGVHyETZiCNQzhj2TRNOoLLIcXRK8JgZlDRAtUTHdQJxwSJSuRRN9MzQmELIn LEHqXM7XXbJqNUDjTtljGwCpIFEbRMHtjw4DPJDhOGIpNnQfCRWpJKUoVUWnRAiuOKUmFQY4NuH8KIQo URXlMK4FHyWdZPvnOWTKYcl6JJhoJ8i8IFIsON3RH5 Jpv9RfCrQrZRMGICvaGT4vzoRiFLHzSj0ZY6pXDiv4JhLzMGN8AYv0EmMzZ3U9FkEgRICfGWHfSDF3Ic gpUq3fQMXoCNP8KGz8ARu8WWOzZLe5OGAfNWVlZmLcABgfMJE2EqFbXA4PIx6UQkI3LAL9rKSpQp2HLj [id number]= ID Date Data Source [id number] 12/21/2019 05:28:01 AM [facility] Name Value Range Interpretation Code Description Data Karoline rce(s) Supporting Document(s) Bicarbonate [Moles/volume] in Serum 25 mmol/L 22-29 [facility] Chloride [Moles/volume] in Serum or Plasma 102 mmol/L 98-107 [facility] Creatinine [Mass/volume] in Serum or Plasma 0.69 mg/dL 0.50-0.90 [facility] Glucose [Mass/volume] in Serum or Plasma 138 mg/dL 70-140 [facility] Potassium [Moles/volume] in Serum or Plasma 3.6 mmol/L 3.4-5.1 [facility] Sodium [Moles/volume] in Serum or Plasma 137 mmol/L 136-145 [facility] Urea nitrogen [Mass/volume] in Serum or Plasma 13 mg/dL 6-20 [facility] Anion gap 3 in Serum or Plasma 10 mmol/L 8-15 [facility] Osmolality of Serum or Plasma by calculation 286 mosm/kg 275-300 [facility] Creatinine/Urea nitrogen [Mass Ratio] in Serum or Plasma 19 [facility] Calcium [Mass/volume] in Serum or Plasma 8.6 mg/dL 8.6-10.0 [facility] Glomerular filtration rate/1.73 sq M pre dicted among non-blacks [Volume Rate/Area] in Serum or Plasma by Creatinine-based formula (MDRD) >6 0 [facility] Glomerular filtration rate/1.73 sq M pre dicted among blacks [Volume Rate/Area] in Serum or Plasma by Creatinine-based formula (MDRD) >60 [facility] ID Date Data Source [id number] 12/21/2019 05:28:01 AM [facility] Value Range Interpretation Code Description Data Karoline rce(s) Supporting Document(s) Phosphate [Mass/volume] in Serum or Plasma 2.9 mg/dL 2.5-4.5 [facility] ID Date Data Source [id number] 12/21/2019 05:28:01 AM [facility] Value Range Interpretation Code Description Data Karoline rce(s) Supporting Document(s) Magnesium [Mass/volume] in Serum or Plasma 1.7 mg/dL 1.6-2.6 [facility] ID Date Data Source [id number] 12/21/2019 07:47:58 AM EDT [facility] Name Value Range Interpretation Code Description Data Karoline rce(s) Supporting Document(s) Leukocytes [#/volume] in Blood by Automated count 11.6 10*3/uL 4-10 [facility] [facility] Ery[facility] [#/volume] in Blood by Automated count 2.91 10*6/uL 4.1- 5.3 L [facility] Hemoglobin [Mass/volume] in Blood 9.6 g/dL 11.5-15.5 L [facility] Hematocrit [Volume Fraction] of Blood by Automated count 28.0 % 3 6-45 L [facility] Erythrocyte mean corpuscular volume [Entitic volume] by Auto mated count 96.1 fL 80-96 H [facility] Erythrocyte mean corpuscular hemoglobin [Entitic mass] by Automated count 33.1 pg 27-33 H [facility] Erythrocyte mean corpuscular hemoglobin concentration [Mass/volume] by Automated count 34.5 g/dL 32.0-36.[facility] Erythrocyte distribution width [Ratio] by Automated count 20.5 % 11.5-14.5 H [facility] Platelets [#/volume] in Blood by Automated count 157 10*3/uL 150-400 [facility] Differential cell count method - Blood [facility] Neutrophils/100 leukocytes in Blood by Automated count 87 % [facility] Lymphocytes/100 leukocytes in Blood by Automated count 2 % [facility] Monocytes/100 leukocytes in Blood by Automated count 9 % [facility] Neutrophils [#/volume] in Blood by Automated count 10.16 10*3/uL 1.8- 7.0 H [facility] Lymphocytes [#/volume] in Blood by Automated count 0.22 10*3/uL 1.2-4 .0 L [facility] Monocytes [#/volume] in Blood by Automated count 1.00 10*3/uL 0-0.8 H [facility] Band form neutrophils/100 leukocytes in Blood by Manual count 1 % [facility] Metamyelocytes/100 leukocytes in Blood by Manual count 1 % [facility] Band form neutrophils [#/volume] in Blood by Manual count 0.12 10*3 /uL 0-0.6 [facility] Metamyelocytes [#/volume] in Blood by Manual count 0.12 10*3/uL 0-0 H [facility] Anisocytosis [Presence] in Blood by Light microscopy [facility] Polychromasia [Presence] in Blood by Light microscopy [facility] Toxic granules [Presence] in Blood by Light microscopy [facility] ID Date Data Source [id number] 12/20/2019 10:56:39 PM [facility] Name Value Range Interpretation Code Description Data Karoline rce(s) Supporting Document(s) Glucose [Mass/volume] in Capillary blood by Glucometer 151 mg/dL 70- 140 H [facility] ID Date Data Source [id number] 12/20/2019 08:52:26 PM [facility] Name Value Range Interpretation Code Description Data Karoline rce(s) Supporting Document(s) [facility] HEILIk6hQeXPGhFh48/SDKmmDHUdz2PdNYszRCv4KTgmVAEzP5KgVDY2tC4nGHO3WPuGKkPmRxQsAPZ1 lbm [file] EJMKh1ulOYzS9hND24DNtU9ertj9vOvdF7El/Y [file] UKJrOxppNgZzJFEjDLL9ZVg5ZKl8CE2gVYGGXs6+CDnksBRyaVmqHDPKZeUcOdO9FBydSFEFMf8X ID Date Data Source [id number] 12/20/2019 08:47:15 PM [facility] Name Value Range Interpretation Code Description Data Karoline e(s) Supporting Document(s) Leukocytes [#/volume] in Blood by Automated count 10.5 10*3/uL 4-10 [facility] Erythrocytes [#/volume] in Blood by Automated count 3.24 10*6/uL 4.1- 5.3 L [facility] Hemoglobin [Mass/volume] in Blood 10.8 g/dL 11.5-15.5 L [facility] Hematocrit [Volume Fraction] of Blood by Automated count 31.1 % 3 6-45 L [facility] Erythrocyte mean corpuscular volume [Entitic volume] by Auto mated count 96.0 fL 80-96 [facility] Erythrocyte mean corpuscular hemoglobin [Entitic mass] by Automated count 33.3 pg 27-33 H [facility] Erythrocyte mean corpuscular hemoglobin concentration [Mass/volume] by Automated count 34.7 g/dL 32.0-36.[facility] Erythrocyte distribution width [Ratio] by Automated count 20.5 % 11.5-14.5 H [facility] Platelets [#/volume] in Blood by Automated count 154 10*3/uL 150-400 [facility] ID Date Data Source [id number] 12/20/2019 09:06:39 PM [facility] Name Value Range Interpretation Code Description Data Karoline rce(s) Supporting Document(s) Bicarbonate [Moles/volume] in Serum 27 mmol/L 22-29 [facility] Chloride [Moles/volume] in Serum or Plasma 102 mmol/L 98-107 [facility] Creatinine [Mass/volume] in Serum or Plasma 0.74 mg/dL 0.50-0.90 [facility] Glucose [Mass/volume] in Serum or Plasma 169 mg/dL 70-140 H [facility] Potassium [Moles/volume] in Serum or Plasma 3.7 mmol/L 3.4-5.1 [facility] Sodium [Moles/volume] in Serum or Plasma 138 mmol/L 136-145 [facility] Urea nitrogen [Mass/volume] in Serum or Plasma 14 mg/dL 6-20 [facility] Anion gap 3 in Serum or Plasma 9 mmol/L 8-15 [facility] Osmolality of Serum or Plasma by calculation 290 mosm/kg 275-300 [facility] Creatinine/Urea nitrogen [Mass Ratio] in Serum or Plasma 19 [facility] Calcium [Mass/volume] in Serum or Plasma 8.8 mg/dL 8.6-10.0 [facility] Glomerular filtration rate/1.73 sq M pre dicted among non-blacks [Volume Rate/Area] in Serum or Plasma by Creatinine-based formula (MDRD) >6 0 [facility] Glomerular filtration rate/1.73 sq M pre dicted among blacks [Volume Rate/Area] in Serum or Plasma by Creatinine-based formula (MDRD) >60 [facility] ID Date Data Source [id number] 12/20/2019 06:47:12 PM [facility] Name Value Range Interpretation Code Description Data Karoline rce(s) Supporting Document(s) Operative Note [facility] UAJKIc0zGcHEOdPf75/CIAkiOGVeg2XbFGdoRHo1BXjmMRRbO3JzNAG5uM9pICJ8FAbLBdYlGoAuCAQ0 lbm [file] AgICAgICAgICAgICAgICAgICAgICAgICAgICAgICAg ICAgICAgICAgICAgICAgICAgICAgICAgICAgICAgICAgICAgICAgICAgICAgICAgDQogICAgICAgICAg ICAgICAgICAgICAgICAgICAgICAgICAgICAgICAgICAgICAgICAgICAgICAgICAgICAgICAgICAgICAg ICAgICAgICAgICAgICAgICAgICAgICAgICAgICAgDQ ogICAgICAgICAgICAgICAgICAgICAgICAgICAgICAgICAgICAgICAgICAgICAgICAgICAgICAgICAgIC AgICAgICAgICAgICAgICAgICAgICAgICAgICAgICAgICAgICAgICAgDQogICAgICAgICAgICAgICAgIC AgICAgICAgICAgICAgICAgICAgICAgICAgICAgICAg ICAgICAgICAgICAgICAgICAgICAgICAgICAgICAgICAgICAgICAgICAgICAgICAgICAgDQogICAgICAg ICAgICAgICAgICAgICAgICAgICAgICAgICAgICAgICAgICAgICAgICAgICAgICAgICAgICAgICAgICAg ICAgICAgICAgICAgICAgICAgICAgICAgICAgICAgIC AgDQogICAgICAgICAgICAgICAgICAgICAgICAgICAgICAgICAgICAgICAgICAgICAgICAgICAgICAgIC AgICAgICAgICAgICAgICAgICAgICAgICAgICAgICAgICAgICAgICAgICAgDQogICAgICAgICAgICAgIC AgICAgICAgICAgICAgICAgICAgICAgICAgICAgICAg ICAgICAgICAgICAgICAgICAgICAgICAgICAgICAgICAgICAgICAgICAgICAgICAgICAgICAgDQogICAg ICAgICAgICAgICAgICAgICAgICAgICAgICAgICAgICAgICAgICAgICAgICAgICAgICAgICAgICAgICAg ICAgICAgICAgICAgICAgICAgICAgICAgICAgICAgIC AgICAgDQogICAgICAgICAgICAgICAgICAgICAgICAgICAgICAgICAgICAgICAgICAgICAgICAgICAgIC AgICAgICAgICAgICAgICAgICAgICAgICAgICAgICAgICAgICAgICAgICAgICAgDQogICAgICAgICAgIC AgICAgICAgICAgICAgICAgICAgICAgICAgICAgICAg ICAgICAgICAgICAgICAgICAgICAgICAgICAgICAgICAgICAgICAgICAgICAgICAgICAgICAgICAgDQo8 O3nqQJOdDJIjWA4gCDu8Po7+THgSPvIuFMK9lhJavL4GDZ1sk7ViEIuwIUJby3VnLBs3DF0ELKPcSZzj CG6QHFqrde3UFEMkQFPiyJOId6dmStJfWAI6SNSdLs hzRM5XLCEeT7deyyCxPEHzZOFYLDrsCZVSON7IKlYoQ5IyrR37WXPGHu3+TDjpwnDkPwhNJsU9UMHeu2 GaXOh8ZW2VBFVbFasah3VyTvTqLYIYWUavHX1BPUR7GDSsQGSnCp5EMWPeR022jeRaHM9MCy0EHlHwHB 6aay0FPbQdEWGxIppGOpd9GQgiVD5DbFUrNZpFgNZo SATyklXjBp02ZSOwuITJOPZ5nAN8MLLrO9DpmHh5FJ7nGH0ONNM2QROfAeX5UgWbLtGtLFU8WXEqYV8e NVxpFS9YBQD2PQmaUKFrUMVyT1wEUkToRAM8GcCejPlvMX8TOjPtB7NhsiDsdREmXVZjGLSGIc8+DQpl cfWyYyyUXvZeFEIqj9YaGIc3CN2NBIDfDCdkQF0FUM YucL7yVRhiAJ6BWoEaTfBvEZSGUrJxD37ndCZiELq7K4RrDjUtYSPwXuocKNWeXXaxLqBdXSEtWaJwWF ogID4+ID4+QVcnEF4FASkuhuJtOWJyHt7MEEIdOFXzZL8bYWIyOZCuO3T6hUvrNKSNJwAcX5oohmqiWZ 1eNEJrE583pQeikmXjFOQ1ALZeJz2FKUAhVNW4YGMm sSUuMAjtRYMPIMveUV8KmTQgQSO1lW8kROzgOJTvXSLrX2bKMuFwxPtbGP64jLjceiNefUHcCDi+Pg0K YW3jl9YfNZj3wyRcPWebEWNaBRkoVEMxTEWrBMNkPIW8SES3WKZZGuQnDMAvZAGgAXqzUHJdQLJtdx5L SDFwRULaWJe5ICTiAXDkCPTyGTvsGBVnVRKgLDD2IV OtHHUrYE6NUsZyMQEoQPOkFHlzBVXqPJHadg2JYSKeZEOpMjQiQmUoTPErYOThXOjuWISsXDJgWcD7OY NeXWEfPZ5DQmAyIGOqDIS3ZqEbRCWlQXLfws0VFECmKJQgLylmSbXwJNYsVSYcRXakVKYgMHT4Zty9JV LcALHbXS8RWkNvKXAgVYk3CAIrPVFbXMUuyg0TRIMd ZQOcSLL8KgMmDYOpWTXtKHzlEUCrDQF8ODXrOKCbGQIcHX4CByAdINVjNKvvGvRlTHArYIZayu2AJFGq JJHyGYDuFXLjKXWcDIUdYLwrCROzFBLqXwmkWNKuCNHkAE2EEkTyDNMvIIW4LiybLNKcRNYfky5SJMNs NFPwUTi2PLXdGJMmSGRoWGyqCOEmULIhTFb0HIZlPO GdOX4YTuFeHMKiRDK0NfyaDASaEPVegk7EDTHrXHJcRwH7TFRoCSGtWSIeHSamVIOpLQVjVPGuEQDzQP ElQE9CAdEkAXqnGQORObn6OCmzD6h0USYoYh3PN5Aqg6WtBpCcYROKFPgjEF7bxzAfLDUdTh7GG2lECt koKpRgOOGkZvP1XQClDkNmZhNeQRJ5DQlwVMVgWsPt Wt0qHUKnD4H6AJYvOSdnKlA3PMEmKaYdCVmkZDQ0C2MlXQQ0TuUnAZ7JLz9XMoF4YPG5wTUsRt8AMYVk TRbMMeYaSZ2YUIq= ID Date Data Source [id number] 12/20/2019 04:32:01 PM EDT [facility] Name Value Range Interpretation Code Description Data Karoline rce(s) Supporting Document(s) Consultation [facility] SRQBBw6qJqKGQtCb58/UQLqpPRJdx9FzGEojLPx2ZScxTDWgI3MwVEL9pA6lWSI9FQeLLvVeEoQoBIN7 lbm [file] AgICAgICAgICAgICAgICAgICAgICAgICAgICAgICAgICAgICAgICAgICAgICAgICAgICAgICAgICAgIC AgICAgICAgICAgICAgICAgICAgDQogICAgICAgICAg ICAgICAgICAgICAgICAgICAgICAgICAgICAgICAgICAgICAgICAgICAgICAgICAgICAgICAgICAgICAg ICAgICAgICAgICAgICAgICAgICAgICAgICAgICAgDQogICAgICAgICAgICAgICAgICAgICAgICAgICAg ICAgICAgICAgICAgICAgICAgICAgICAgICAgICAgIC AgICAgICAgICAgICAgICAgICAgICAgICAgICAgICAgICAgICAgICAgDQogICAgICAgICAgICAgICAgIC AgICAgICAgICAgICAgICAgICAgICAgICAgICAgICAgICAgICAgICAgICAgICAgICAgICAgICAgICAgIC AgICAgICAgICAgICAgICAgICAgICAgDQogICAgICAg ICAgICAgICAgICAgICAgICAgICAgICAgICAgICAgICAgICAgICAgICAgICAgICAgICAgICAgICAgICAg ICAgICAgICAgICAgICAgICAgICAgICAgICAgICAgICAgDQogICAgICAgICAgICAgICAgICAgICAgICAg ICAgICAgICAgICAgICAgICAgICAgICAgICAgICAgIC AgICAgICAgICAgICAgICAgICAgICAgICAgICAgICAgICAgICAgICAgICAgDQogICAgICAgICAgICAgIC AgICAgICAgICAgICAgICAgICAgICAgICAgICAgICAgICAgICAgICAgICAgICAgICAgICAgICAgICAgIC AgICAgICAgICAgICAgICAgICAgICAgICAgDQogICAg ICAgICAgICAgICAgICAgICAgICAgICAgICAgICAgICAgICAgICAgICAgICAgICAgICAgICAgICAgICAg ICAgICAgICAgICAgICAgICAgICAgICAgICAgICAgICAgICAgDQogICAgICAgICAgICAgICAgICAgICAg ICAgICAgICAgICAgICAgICAgICAgICAgICAgICAgIC AgICAgICAgICAgICAgICAgICAgICAgICAgICAgICAgICAgICAgICAgICAgICAgDQogICAgICAgICAgIC AgICAgICAgICAgICAgICAgICAgICAgICAgICAgICAgICAgICAgICAgICAgICAgICAgICAgICAgICAgIC AgICAgICAgICAgICAgICAgICAgICAgICAgICAgDQo8 T8gkYMJoNTFaZE5cSCb6Pv9+YEqMViTxOSL8moKnhK1XHK4sy5WrNMlfLJQvs7LlZDy2DY8DZOYtMGhf QW2MQPwluq6GUKTxFNPnwZEXt0fzQgLyWTO5LFUtEywvYD2DYSWuF7qqlbLhTRHiRKKZMEdeHVKJLKqm FOMRBVAyQTSeKcJtCpQwTGDaRS5UULOuA611raWeRT 6ACp8USoCgKG2isr6ZGsRrHXHhWdzXEbu8NFnnGD0JsINtuGOxXaRwLAWHLjLbX2fza4HvOyPqEDWLYO ooJP3Du1AgzXJtDHj+Ou3FZR6yz8UkOFvbVwZeAP6rlo5WMRbKSpVkX2KhtWbgMZEynnT1fEPeGGP8XY QkfPZdeH2gCRCIHXKzmInpbq9qVT5OVAT8SNVaVkJ1 CzRqOgSgXJa2INWeYJ9fUCssUR1ESGP4TYqmSTVxQLEiB2pZMyXqOOQ7YhNyxAocNV3KGdQgC4PigvYw dCAzNSAwIFINCj4+DWbxizRpUtfNNrA2DFOsb0UxVKd3QF4VRXHdTDphBA6MMJFkpS5tEJylTO2EGwSv JbAjGXXXCdKfG98rgVPtFSv1Z2UnQtGjTHRfKkmaJU MgPDwvTmFtZXMgWyBdDQogID4+ID4+QAhtHP0VMIbckqXdUYItOa9UWUYwUEBmPG6oIEKeJRSkY9E8kU xtFUJSCjOrV0guznkdGF7vCJXlS391kRjfptBaMWB3MHYxTm8CXGRoVZI3AILjxVOnLpYfDEOTQHetPM 0OyPEzRKA3wZ4eEFpmQCVmYUTbW1bJOcPamUwtUP94 bGwgbnVsbCBdDQo+Gc4KJS4tm6XkRHi7aoSdIEzuVFL4RAkaGZLaRSEiSQVtNRP2RJL1GZGDPrViINXm ORKyVGqdDJHwYYYnuh9UZWHnAVV4SnucHXKkWGGgOYFtOCaqZXYhTSD9BGshWWRfZFSdAO3GFaFrKZMj MBXxKDstMQNpHGQytn4NSRJiSMEdYyU8SUThZQMyEX MvOSxoTRRmEJUoFSt7HWZuMKDuXZ5SUnVsJDXnINO1AOGqZROhLUDdje6NBMJhNAPaYvf0AULzWAKkRK QvSAxwFIRoILI2WUGiYKBwDNLdUJ4MVbJySVYpPChxUEFfIDEyHJJhsi9XFICoCQRhCfAuLTJjPFFnYA HnXZypYNIgJFAeYzA6KHCzWGKhHJ3WFgXlWHIdIDUu PTOnMJPrDYSdfy5GCDNqEQQzUVI2EkAmYAJiSSIaVKvqMKBjJGG9CuA2ALNtEWCbDF2IWeCdDOFkZWS9 IUHgPHUqJVFnuh2GWUXtSMJxHOL8ArOaWPXbSEJvQXkfOVBnBRI8LNT0UGTpYVLuDT7EUeZhNGXsYNP8 MZcaWFMmCHIuqj2JIUQjFUBbOfrsUYXiCGJeCYKvOZ kpAGRvVRI8IQU8ZIKpLLJuTR8KCbVtLNSbZoncLzTdEWMrPTZjog1IVOPcUSGhMBH7EKChNIYjTGMeWU teVKVyDHP1ISs7CFUaXWGsPL8RVmVeVZFlQGXhPiFaLGMzFOGzhb2LSLPvMVI3AEN2QGUpECEcQURjJI brKQVdHAKtVvF8QBExDGTgAM7GYqDbMWOvHSG2KzKl PWBoPSVpbz3YHMUjIEQ4BoqdOVIdXEPiGRVbMXgjYFBsLVYsZASmPOKnJNLqDW5GYxJuNINvZPOfMeXx RETtKADpik8GQQToMCB9VhU4JJXyIWHpRQXmYJduLAFeXRJhMxI8BKRoXCLvGH4WKpHeZFOqWGXsCQLi LZCiZRIakb0KSWJbVZP0XDQkGWRqDTSkGPRrYFruVM NvZPL6Rwh2OZDiNJKxHB2EJrGkZTQaJAN3PxIxMCGqYTDfxh4NdZFhoNxwln2MZRtMCs4OwAudMYS5WF ouKz3qxPCkFgDnENDBCv4QxyCmASFiMQZIMCdtSIJpJBCgWMxdLuErVYU5MfViOHCiHFmtXWsqDOQwXe MqNDD6MqF8SoVcMGRmAONhPTncMbJ0W8GvZ4C5QJRe D6MiVEEyYKr+NO7wUZh+Hm5Fz6RozeD6eyTrSCi7ShW0VR1RXVBBG4WHCp== ID Date Data Source [id number] 12/20/2019 02:14:25 PM EDT [facility] Name Value Range Interpretation Code Description Data Karoline rce(s) Supporting Document(s) [facility] PTTXCy1oSmBZOjJur1EoGiVkPNXbZJ2ubnq2R8V1gHSuS3MveCSrm8zsW1VxK3IyXEBvYDLCKN9YnDCo jb2 [file] IRON HANDLER/DJbGeRZMXUnTk9j4E4eWIniZC7FO8HqCOLMmoBfJ+D7jigz979KsVQqjORsTK8W3dtz1aBmjacNHV PBFROFlVXomPq34Sa1MjlVt5X3JOYSMU9eCUQTISsQ [file] Nadiya+zQrCu2rd/fPW2BJcXxz2Td9HK/9IHRB+MKrdOZ1DzVJbe4vFnysytqx68a46P91TSDFpDyGWqMVB GjrU522jeWU+I2Nz6CNSvMmFGz5RXFqmybpFTxDTJA UnVKvJXflDwl5qNwmXLiyNVyPtqmZ0EbZ5nD1NdA6YSvN0pp2VqUAEBwVCn7LB2IhFWnEAeIWkW/qLrz Uwo85NYKmJPbOceWUrM7lBIluWK2SFVePl44fJu3dJkDSlQDP5NR5rCbzO38Q3dC3uUdDQYBQwIuMNhP FMV6uuO7DHxLjMYgeGMioNgMTlx4W5A2imfTyVJDtP uTJKlwmD8jwGEU8xM5K90Cj2boXQqHMvrAh+Q8HlhLsSYrtH18suxou73yA+1GS6A40ZYTOmKKZESCES R6bhST9fj3QAwDuwwo+O6h6sh0nCOdtnuF1IM/8EfScHLiuxEebqOkVR4wxyuEEUVJWXWXTTZQ4G0yXy T+UgqGgFaYDzLQlQUpkOKgMhqJyB9kCPHT1ACUSNiy iVBqs1rtPIew6MobZN4byF1mE2MkoBRIfpg+0V0YxS9oO98LmUF7a391T/R6IQKFdK3uhIywlf4MVxap dbBIHrMYpmnvdPXx7Nub4oIKpWikDxtyhtmfqeKjr2JQq2cspjuJ60vhTnfpDNqoVxFjIkN9dW29i8uu uFcAR+cE1F6fT/WewyJiL80Y4e7Q3G6JxqDE02qg2r elqX5jzKHw+in7lltbHllZzt/O/rWVZcCN7hYc3XwLGVnRwMytoIfSDsghnQdA1iZckSZRfMTGti4te5 Qzq4NwdcC1ski6coFMbsd3D9XKzptSf/vCEE/UG+UQT/L74j7InB2ho6pjhbgZYgfCcn2toVI/057tvQ iqpYLIbgO33gL6J6LtHVtSK9NYIJWonBrSE+r1/5zR B1Q23acB7U+oCiJ/4b2d/+0//+N//aMU9/pHVP/5r//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/+H/+Wf/+M///X/+nm692VvkX3ovXYbB8IL [file] 71Xr7sU2zmyoU71+5os33+PNjf35E0//3po7fv/d99/64x64D5184yCQT99++bMKa216/Ou377/56tcf Uu717bcf/OzDx19+/nB7k99kH3/9/jJY27m0+/jh08 amIbz4582/Up2XN/u65I+f7iOzcaCV2+2rb77/9a3bL00d2Re//DM/e32BXz/7+N3H/+jy240ov//x7V eff/f41tI2r3868/auwu++/7u/+/Ddp/aKqXD4u/x28fkA71d/zBfff/90d2xvxg2sr++/+PTVt9+8ff nh689/37yr51PMG8/7841vw7/mfq0y2p/yt59/90Ve 4+dff/vF//3TP/ynUc65y971+boKd61316wCD2j1e8898xqs1W4+//WHt89//e4191b5+ahAR8548nwc b/6af/nzi6p4XU55+FN9+/X7y/j4/h6+/vD5l9/9mV+/3D7/zt0g0lHGu/fTn/hFpYMoO716540sx/X5 nk0par4BH98+3jaV19z/+/asn33+/d+YbKN7uM4/9W cu8/AkNjp5i3Io/3+9f/E3Nh8Xe+/Hub8u+MUf//Avv/vT73/457f/8r/ffvnHP/6P//bDn/77Dz/81d t3v/0f//67t1/99p9/+/aP/2n1f/zLtz/+4b09/U2bf+OP+n7p84B9J/lXv/wPRtjOpWX+/vd/82+8t+ 5UxHtk8v//GvyrZRU/nl/5sgI3xXiO++vnrxWsJxGq R0b6L0XyW9QS7rir7Jjtlk6Qx/XFext/e36qMs/18v3lk0/54U9/mv255bp70cue//rzT99+/LT5blnx LfLdhL/9UZX7j/5b6v65/1vGKDzk294cviZiw/1L187IIMZNlDE81WI3+oc//Ptfv/3pt//+46u/Ow9v aAPU98r/58tytLjWxk+ppktpfTw51F/+/Yc//a/f/u ugtrfH0L7dQ64+3+f+6dUP9/utw2k46//5/uy/++Pxnfo5I7taY1dOI3st5i/9zd9/+ie+cnsE/Gjrb9 5HKD++gxu6KJbc7Pcqzfvh/gM59o+uPUlK/+kfOr8LU/b2f28vq/1/fvi3/5lT0ji51Pc/+fuvf/Y6we c4Gd7Kj/73n/7xL3/y6/Mm/vaH3//2X3/0ju1H/Be/ /Z//9Nt/+91v//CTKxxtr/m7P/z0/7ftyPOv/+U//oww3xPk//s3k46u6Mx/OPX9+o//4Ivrds7DNJTc ePGffvin//aH3/3T+/Q30t4w4gzp18gk3wAlg/zek5/E7//t149E204/+/pYJ390Vx28IjncAkXi7epb /mdr8iqdI//u7Lkw4xC8hom/9vbhveW/f5g/fPnps7 d6ds26t8ZGR/QkM7971rB7TI/pZ1+D48+/+IJd1837/21/+ivIbOUU/G8gQGomPdOgFTT5uhUcmCmbqv FoTtnVFIffARGmLtj1KF2AbZBlAVAiS6P4DXIrfk9yDHArCIJxbENkBwFfHXEMLX3VlORjSI3LTUg3PO FiOGXyLhCbFIDqhwW6ECVbVGWgAOMyN7LuokUaqMSx IDAgUj4+RX8cd4AtNfZeLFKiMsf1CO1YvNCxGV8RdSBayV4qmlRmQ423ppAkLCMnMfafc1LmZTycFXUP AP5JDHS9UJT9DDQbHm6+OU9bt8UvDrHaJTCeXrw7EU6ImMMkl4KiXQ5LY5ZwOICfPVJCQYU9w9OzWJEp zoyxsekaB9CnNLV1yQ4dCJM6KURbGMuzNKAgJBHiYO X4YZVcGPftLRRmLSUvQOFmDMKsAZb6nNJqAM5PQ1EsPBWuPTCLLXVqrwYzXn5vUJdYHDHUOBXZV9STZy QsDbu3CfmhIDzxC3C7KhduL3YmIX7DB2NiEKOyJWPKNQLjqxObEW9TtvSxaG3qYUrFCCSEYKuPXDohUy N4u18jlmXGMXUiMXApYNkyZVCjEPEmCPPjEPWbDJVb YXVtMGUqQY4LZ5JcBVTrWGWPLNN0o0HdSBQejvfsuzmuYn8lqrBhMys+CvbeOXBwd2RgUGybT8D8dJRc I3ShW6NeFX6PxPKxVOfkNFPuWGVvGDLlL415uiKoJY4+IV8hx2NkVrxyVMAYZHCzPCGsFGHnSMN6KmOq XUQrQWSsUDUgTzN4DvSvVqNXZSNdFTY1UMk2WBPsVD EjNSRnBDesBBLrPQN0RYCwHZAzDHEeJW8sIeZfYJOcAcQ4IbLsIPJfFZGxlcODPYNkVEDkMAJfKFM2NJ AmUPUiRUmgGTDuQHPtDDL9QSLiQSFoYL9jZyOePKKeHBOfIdogOUNhHXUcdtOLZSDvSPAuCFC7QmGqBL PrJADwTHafLFMsYJMaKza6IHAwNQSlUU6rLxJbRKGb OOB7ZFcwCMYyVKMaahHYZJUwQXHqUKGcJwPjDUQvRAKwXJotAVLwQHRkZjOyTCYhDYAlZY7eBiFdQCMx SKK4IUUgGMFeBTQojkATSRRrCLVpZPc7EBRhDAEvDYObEVdmXVBeBRYeMVJ6UVKrOVFqYY6sQzIaLLWm MSPmEZVqOYRgGLIswbYXBZEdJEIkUBH3CEWuNFXdWX PdQXyyRWKkUHPnKmq2SEFxQGZpGW7pHhDnVWOzGMZ4SMLnRZMqIMIgquBCIHTvSSD9QGH2ULDtSMAvOW JjBHhrIHGfAWZyHaZ6QEBuQAFeJA1qWuGxPANiBQC7QkGgBPLhACErdkEYHOOrEKXrZYJ6MbJiNHZoBP KuTOkwHOIaAISlVZQkUCJ9HNT9KVLzUnTqFMgfYALZ BHgKT4VdodYlClRFJ8wrRf7pXyDwLLBNC4Uhf8UfARVuHGFBJq4+NgT6QRC4xCBwWtc1YZz4PShcJEMC Rg== ID Date Data Source [id number] 12/20/2019 11:22:22 AM EDT [facility] Name Value Range Interpretation Code Description Data Karoline rce(s) Supporting Document(s) History and Physical [facility] ANYLLd0lYyTRJvEx69/GOBwdZGGnd6RwMPjbIZc3DCdkOEArS1UuKGS2sL0uYLM9ZZpUNaOuOeEjESL3 lbm [file] AgICAgICAgICAgICAgICAgICAgICAgICAgICAgICAg LCWsWNGnVBPcKGLhTQLoHNOwGWOjMBMyJAKjBH5JBXVyFNMoGJBsUYHkKOYpMCPiMWMlMSYxBNYuEYKm ICAgICAgICAgICAgICAgICAgICAgICAgICAgICAgICAgICAgICAgICAgICAgICAgICAgICAgICAgICAg OIBkSJChWUSlWK8DNYFjGXDcEUHgEYElQVDkAEIdDO AgICAgICAgICAgICAgICAgICAgICAgICAgICAgICAgICAgICAgICAgICAgICAgICAgICAgICAgICAgIC RoLLRsYDWnBPIuHCVaEQNlXXCaFC4KIZWfGKCoTBCbWWShVBQbFTRtBUYjLUGoPHKsVHHrICWlFFUfDO AgICAgICAgICAgICAgICAgICAgICAgICAgICAgICAg PSNpLZZmJPLhJUVsDBGqKLYiJKCiYDLkUAOgGHZlQM6EIAHpTHBmKCJxHOKgLBJyKGOvCDEuHMYsAMVo ICAgICAgICAgICAgICAgICAgICAgICAgICAgICAgICAgICAgICAgICAgICAgICAgICAgICAgICAgICAg CYZuPZXaYVSmGBNbFY9KNFJjFGLlRLZdNQXyDUGvND AgICAgICAgICAgICAgICAgICAgICAgICAgICAgICAgICAgICAgICAgICAgICAgICAgICAgICAgICAgIC WnNYMxMDZxYQXsYIBgETEhDAFkHGByMP1HIFIkWCYyBJUyOOKdFCPhOSIkKTMhRYGpMKPsPSQxAJQiSK AgICAgICAgICAgICAgICAgICAgICAgICAgICAgICAg NUReTDYkTHAfADLtRADkHZHdBENwLISpEXJgYMYvHSJxHF3SKMQbAPHzJNUfISEtZUNfNOAmYRTmPJRu ICAgICAgICAgICAgICAgICAgICAgICAgICAgICAgICAgICAgICAgICAgICAgICAgICAgICAgICAgICAg QSNjULLcWTBbOVYtGZRzJU7JOSDzXTFxLZCtKEEnWS AgICAgICAgICAgICAgICAgICAgICAgICAgICAgICAgICAgICAgICAgICAgICAgICAgICAgICAgICAgIC FpQBTqNHPxOTAsFWEjTQDnDHPpWLLnCNBhVC2DIUIjRFMrNBVvXTLrMKCdGCDzFSJeHAEvIXLpCCHpZO AgICAgICAgICAgICAgICAgICAgICAgICAgICAgICAg JUSnMCMtYOHfFAQgOIRbKPJrRVSwWWGuIFBcOEBxDOJhXRGxPE8SVV56xWVik4U4QDHfGK2dtre/Pg0K JChtffKjnCAtHU9RSfYvGV8uiv7LDbGvBU9tjq3ERDtEGvGyT5I6yIOhAAWfHDHDHdUuI56gQGqaRd15 KEjrKCWvNjHeOZa7Gm7DKiLcH8mmKLLoGmJ5XACyHy T6FHBvKmF1FGYxWcTuHKStAVQhCKOuETVCYOP2OVTuLcYxBoUgOXIsUJ5IXKKmC543usPuKj2MPs8PUt BiCE0rqt2BIfapGNMiXwmXJqy6ZQylFD2HaRUysVDuCSPyHXZOKsXpA8zxf4KqRevlTXMNWAbrTT4Sg4 VudCAxDQo+Qy1MSN3vy6HkEMlmASFvUF4hac0JWHzJ EyDrN9IcoBxaFZvyRWOilEZXuEFcpyTZMH4gE1nzHQ7wJVFBTMPjqDFeEU1vUP1mRTEdTFRvAeH0NOOB GM4SBRJhGOUqnVVzFQCeDBGZUL7NBZklAWP7NUUfvzEpzMMaTOwzXZ0OFQMugwZoZbpcESLBCZs+Pg0K ES6mi9QvNUhqMEVbZC5jll5IZReLYcFiI3M4wXEwX1 Y6BUbuEy8BFRMwJSQiPhQgYWBPCCyrJT8WFT4tvxH0HX6BtDZbEVRaFNVxmRTnJXz1E26fbQCzTSbbCU 0KICA+Greta+Ki5JJMCgDQGbWMCdIgIsLFVTUwLjW0HcV6WCr8EtG2UsAG61eTlaobPlNIshEA6GAK7oAV MtPSIYRR3UyLOpjX9jujJmYnGaPJCFKcOxX14pvCKq RBMxNIR3WQZiJi8FWEAgR3WoeoWjkHnapfYcLDPvXXITPH0YORlxtiWzmSHiyAraVZ04mNggRK9ABg1L JjDeAZ6bpj1QyJXrZj5DVAC7YO4UDQNeKAGqIKFaGKK2HWQaGlUeMHsgAVIxBUWmQQB0YFLsYQPgBH9C AvCzNJDyHMX0CuAnHGHnOOGzli7FZXVoQYZ8IcsoTv QcJUYpLHDyNBjnVIUmFEDeNPE3WGHuWQWpJQ8RGkHiXACqLGAdFwpcFNAbIPZamw9JWFJaKBOcKCE2Kq YbMBRsXCYtNIbiXJTcYOA0SaW8JLAbSFKvLB9VWuSwIVCeOEf9UXGvRJTbCJNona8JPHOxAJGwPJn4SL XaFKBbUNHlWYxdHMYaBOAlJWg9BKOvIJJqEZ3ZHiUm WNGuIIJ8TWcgXGEgZDQegy5LPAYvIJXiTPm3PzIxUEMlBQKaBNzhOFVhOWA9Vyw3OMHgLMHxZD4EJlLu GRAaNZj2DQHbGXFnAYIkcv3ANZSlATRsFVG3ESWzWQOyLNJcWMzaCRObYBLoYFU0VHNrVJLoDW3QQwRd QTJfZaDpAEJzTJSlFYNrlm6OGDHiSTTxIBE2EMYdZZ PlULLdQWzvVFOtHPL9OvZ0YPKyPMBjDX8YAyPfJTTgQuU2NWPlEZYjOCZhjd1EPGIfDFIaFVN7RXIqEF ZcOCOtWYdjCBMrFCO1VzY0YBHvQIHeXF8RAhLuXVRcPeN4SGrcTPOlMUJhvk1ZHWNjZIBzZgKjAxFvVX SyAITpIFhgJYVsHKM9WSKeBODySSTxRO5NWjPpVZAi Kqi1DUVtKEUrZCJudz1CVPStLQUgWPi5AYSiROXgFPUbZWbcSCBiNKM9GAr7POCwYBUxXG7NGlOrRLXm QzhlVwLpHYUbXFGrfk5FZZQrDUG4LMO4CUBzTMUgUEKpVKhsIVRlQOOrWOP8BNVyOWMaDC0MXaDlNELe CJV6DWAuHSOaJOLoly5EIWNoEPY0WOA4IDFeVMRnUT ExLWooWKVnWISgFwS1BTGvJAKaDS3JSfZiYJLsGDC9IKRrHYFgUKOlfa3VQOVpJLO6PnH0ZmIlXHHuCU WlSIncUZJpBQHhPURkQTXjXNOeSP1TYaSwFHSyPUI8ZzTeRVKzBOQuru0DAWBwYZZ3FEN9AgMmYDUmOY SdWWy9orEyaDJbNOr5FU0RO3GujxOxKOBAHi8Rz810 YFW7LYYrYf8BY4ssYg5rUFBmCPVBYu2ULKq6HGVtHXRuVrDhJ6DeAqJrJGC0DNVoOeZgFTtdXNZ8HqL+ OKm6DpAmADDeJ4WuVbBpCYAzPIS3DQW9MPQrCYK6QqCmYA0vMFIPEt2+EBmspYMavTozIHMRMvJ9PaO7 OVmbPAQAWv9D ID Date Data Source [id number] [facility] Interpret[facility] Code Description Data Karoline rce(s) Supporting Document(s) Glucose [Mass/volume] in Capillary blood by Glucometer 105 mg/dL 70- 140 [facility] ID Date Data Source [id number] [facility]2019 [facility] Interpretation Code Description Data Karoline rce(s) Supporting Document(s) Magnesium [Mass/volume] in Serum or Plasma 1.7 mg/dL 1.6-2.6 [facility] ID Date Data Source [id number] 12/20/2019 04:33:24 AM [facility] Value Range Interpretation Code Description Data Karoline rce(s) Supporting Document(s) Bicarbonate [Moles/volume] in Serum 23 mmol/L 22-29 [facility] Chloride [Moles/volume] in Serum or Plasma 101 mmol/L 98-107 [facility] Creatinine [Mass/volume] in Serum or Plasma 0.62 mg/dL 0.50-0.90 [facility] Glucose [Mass/volume] in Serum or Plasma 133 mg/dL 70-140 [facility] Potassium [Moles/volume] in Serum or Plasma 3.4 mmol/L 3.4-5.1 [facility] Hemolyzed Sodium [Moles/volume] in Serum or Plasma 135 mmol/L 136-145 L [facility] Urea nitrogen [Mass/volume] in Serum or Plasma 15 mg/dL 6-20 [facility] Anion gap 3 in Serum or Plasma 12 mmol/L 8-15 [facility] Osmolality of Serum or Plasma by calculation 284 mosm/kg 275-300 [facility] Creatinine/Urea nitrogen [Mass Ratio] in Serum or Plasma 25 [facility] Calcium [Mass/volume] in Serum or Plasma 9.4 mg/dL 8.6-10.0 [facility] Glomerular filtration rate/1.73 sq M pre dicted among non-blacks [Volume Rate/Area] in Serum or Plasma by Creatinine-based formula (MDRD) >6 0 [facility] Glomerular filtration rate/1.73 sq M pre dicted among blacks [Volume Rate/Area] in Serum or Plasma by Creatinine-based formula (MDRD) >60 [facility] ID Date Data Source [id number] 12/20/2019 04:33:24 AM [facility] Name Value Range Interpretation Code Description Data Karoline rce(s) Supporting Document(s) Phosphate [Mass/volume] in Serum or Plasma 3.4 mg/dL 2.5-4.5 [facility] ID Date Data Source [id number] 12/20/2019 06:05:01 AM [facility] Name Value Range Interpretation Code Description Data Karoline rce(s) Supporting Document(s) Leukocytes [#/volume] in Blood by Automated count 12.5 10*3/uL 4-10 H [facility] Erythrocytes [#/volume] in Blood by Automated count 3.25 10*6/uL 4.1- 5.3 L [facility] Hemoglobin [Mass/volume] in Blood 10.7 g/dL 11.5-15.5 L [facility] Hematocrit [Volume Fraction] of Blood by Automated count 31.7 % 3 6-45 L [facility] Erythrocyte mean corpuscular volume [Entitic volume] by Auto mated count 97.5 fL 80-96 H [facility] Erythrocyte mean corpuscular hemoglobin [Entitic mass] by Automated count 33.0 pg 27-33 [facility] Erythrocyte mean corpuscular hemoglobin concentration [Mass/volume] by Automated count 33.9 g/dL [facility]0-[facility] E[facility]th[facility] distribution width [Ratio] by Automated count 20.0 % 11.5-14.5 H [facility] Platelets [#/volume] in Blood by Automated count 188 10*3/uL 150-400 [facility] Differential cell count method - Blood [facility] Neutrophils/100 leukocytes in Blood by Automated count 90 % [facility] Lymphocytes/100 leukocytes in Blood by Automated count 1 % [facility] Monocytes/100 leukocytes in Blood by Automated count 5 % [facility] Neutrophils [#/volume] in Blood by Automated count 11.29 10*3/uL 1.8- 7.0 H [facility] Lymphocytes [#/volume] in Blood by Automated count 0.13 10*3/uL 1.2-4 .0 L [facility] Monocytes [#/volume] in Blood by Automated count 0.61 10*3/uL 0-0.8 [facility] Myelocytes/100 leukocytes in Blood by Manual count 2 % [facility] Metamyelocytes/100 leukocytes in Blood by Manual count 2 % [facility] Myelocytes [#/volume] in Blood by Manual count 0.24 10*3/uL 0-0 H [facility] Metamyelocytes [#/volume] in Blood by Manual count 0.24 10*3/uL 0-0 H [facility] Macrocytes [Presence] in Blood by Light microscopy [facility] Anisocytosis [Presence] in Blood by Light microscopy [facility] Poikilocytosis [Presence] in Blood by Light microscopy [facility] ID Date Data Source [id number] 12/20/2019 03:09:39 AM EDT [facility] Name Value Range Interpretation Code Description Data Karoline rce(s) Supporting Document(s) Glucose [Mass/volume] in Capillary blood by Glucometer 146 mg/dL 70- 140 H [facility] ID Date Data Source [id number] 12/19/2019 08:40:18 PM EDT [facility] XR ANKLE 3 OR MORE VIEWS [id number] RESU LTInterpreted by:Kim Alexis MDINDICATION: 54-year-old female status post splint.TECHNIQUE: 6 views of the right ankle.COMPARISON: None.FINDINGS/IMPRESSION:Fine bone and soft tissue assessment is limited due to overlying cast.There is a mildly displaced distal fibular fracture and an anterior medial malleolus fracture. The ankle mortise is grossly intact. The alignment is grossly anatomical.This document has been electronically signed by Jessica Rodriguez MD on 12/19/2019 8:38 PM Name Value Range Interpretation Code Description Data Karoline rce(s) Supporting Document(s) ID Date Data Source [id number] 12/19/2019 08:38:[address] [facility] [address] LOWER EXTREMITY WITHOUT CONTRAST 7370 0FINAL RESULTInterpreted by:Kim Alexis MDINDICATION: 54-year-old female with a fracture.TECHNIQUE: Axial CT images of the right foot were obtained, and reconstructed in coronal and sagittal planes. Automated dose lowering techniques and/or adjustment according to patient size were utilized for this examination.COMPARISON: Ankle radiograph from 12/19/2019.FINDINGS: There is an oblique medial malleolar fracture and comminuted distal fibular fracture. There is soft tissue swelling around the ankle. Curvilinear osseous density adjacent to or involving the anterior-lateral talar head may represent acute injury. There are no other acute fractures. The alignment is grossly anatomical.IMPRESSION: Oblique fracture of the medial malleolus and comminuted fracture of the distal fibula. Curvilinear osseous density adjacent to or involving the anterior-lateral talar head may also represent mildly displaced acute fracture injury. Soft tissue swelling.This document has been electronically signed by Jessica Rodriguez MD on 12/19/2019 8:35 PM Name Value Range Interpretation Code Description Data Karoline rce(s) Supporting Document(s) ID Date Data Source [id number] 12/19/2019 08:35:28 PM [facility] XR CHEST FRONTAL ONLY [id number] RESULTI nterpreted by:Edward Lester, MDPROCEDURE INFORMATION: Exam: XR Chest, 1 View Exam date and time: 12/19/19 08:15 PM Age: 54 years old Clinical indication: Other: Pre-operative evaluation TECHNIQUE: Imaging protocol: XR of the chest Views: 1 view. COMPARISON: CR XR CHEST FRONTAL ONLY [id number] PORTABLE 10/09/19 10:24 AM FINDINGS: Lungs: Unremarkable. No consolidation. Pleural space: Unremarkable. No pleural effusion. No pneumothorax. Heart/Mediastinum: Unremarkable. No cardiomegaly. Bones/joints: Unremarkable. IMPRESSION: No acute findings. THIS DOCUMENT HAS BEEN KATIE CTRONICALLY SIGNED BY EDWARD LESTER MDThis document has been electronically signed by Edward Lester MD on 12/19/2019 8:35 PM Name Value Range Interpretation Code Description Data Karoline rce(s) Supporting Document(s) ID Date Data Source [id number] 12/20/2019 04:30:44 AM [facility] Value Range Interpretation Code Description Data Karoline rce(s) Supporting Document(s) Hemoglobin A1c/Hemoglobin.total in Blood by HPLC 6.3 % 4.0-6.0 H [facility] (NOTE)<5.7% Average risk of diabetes (ADA)5.7-6.4% Increased risk of diabetes(ADA)>/= 6.5% Diagnostic for diabetes(ADA) Glucose mean value [Mass/volume] in Blood Estimated fr om glycated hemoglobin 134 mg/dL <126 H [facility] ID Date Data Source [id number] 12/19/2019 08:58:18 PM [facility] Value Range Interpretation Code Description Data Karoline rce(s) Supporting Document(s) Prothrombin time (PT) 12.7 s 12.5-14.9 [facility] INR in Platelet poor plasma by Coagulation assay 0.95 [facility] Routine intensity oral anticoagulation I NR is typically 2.0-3.0. Target INR must be clinically individualized. ID Date Data Source [id number] 12/19/2019 09:08:13 PM [facility] Name Value Range Interpretation Code Description Data Karoline rce(s) Supporting Document(s) Bicarbonate [Moles/volume] in Serum 24 mmol/L 22-29 [facility] Chloride [Moles/volume] in Serum or Plasma 99 mmol/L 98-107 [facility] Creatinine [Mass/volume] in Serum or Plasma 0.53 mg/dL 0.50-0.90 [facility] Glucose [Mass/volume] in Serum or Plasma 168 mg/dL 70-140 H [facility] Potassium [Moles/volume] in Serum or Plasma 3.4 mmol/L 3.4-5.1 [facility] Sodium [Moles/volume] in Serum or Plasma 133 mmol/L 136-145 L [facility] Urea nitrogen [Mass/volume] in Serum or Plasma 16 mg/dL 6-20 [facility] Anion gap 3 in Serum or Plasma 10 mmol/L 8-15 [facility] Osmolality of Serum or Plasma by calculation 281 mosm/kg 275-300 [facility] Creatinine/Urea nitrogen [Mass Ratio] in Serum or Plasma 30 [facility] Calcium [Mass/volume] in Serum or Plasma 8.9 mg/dL 8.6-10.0 [facility] Glomerular filtration rate/1.73 sq M pre dicted among non-blacks [Volume Rate/Area] in Serum or Plasma by Creatinine-based formula (MDRD) >6 0 [facility] Glomerular filtration rate/1.73 sq M pre dicted among blacks [Volume Rate/Area] in Serum or Plasma by Creatinine-based formula (MDRD) >60 [facility] ID Date Data Source [id number] 12/19/2019 09:59:03 PM EDT [facility] Name Value Range Interpretation Code Description Data Karoline rce(s) Supporting Document(s) Leukocytes [#/volume] in Blood by Automated count 13.2 10*3/uL 4-10 H [facility] Confirmed Erythrocytes [#/volume] in Blood by Automated count 3.29 10*6/uL 4.1- 5.3 L [facility] Hemoglobin [Mass/volume] in Blood 10.9 g/dL 11.5-15.5 [facility] Hematocrit [Volume Fraction] of Blood by Automated count 31.5 % 3 6-45 L [facility] Erythrocyte mean corpuscular volume [Entitic volume] by Auto mated count 95.6 fL 80-96 [facility] Erythrocyte mean corpuscular hemoglobin [Entitic mass] by Automated count 33.0 pg 27-33 [facility] Erythrocyte mean corpuscular hemoglobin concentration [Mass/volume] by Automated count 34.5 g/dL 32.0-36.[facility] Erythrocyte distribution width [Ratio] by Automated count 20.3 % 11.5-14.5 H [facility] Platelets [#/volume] in Blood by Automated count 180 10*3/uL 150-400 [facility] Confirmed ID Date Data Source [id number] 12/19/2019 09:16:58 PM EDT [facility] Name Value Range Interpretation Code Description Data Karoline rce(s) Supporting Document(s) ABO and Rh group [Type] in Blood [facility] Blood group antibody screen [Presence] in Serum or Plasma [facility] Blood bank comment [facility] ID Date Data Source [id number] 12/18/2019 09:29:35 PM EDT [facility] Name Value Range Interpretation Code Description Data Karoline rce(s) Supporting Document(s) Progress Note [facility] [id number]/FLXzmFLUyq7PkOHouMSw5QYhmMFUlK8FyYGY9qD8lPZM2SIzIUdGwXsZgBANk lbm [file] [id number]fPdHK6GOQy= ID Date Data Source [id number] 12/14/2019 06:00:18 PM EDT [facility] Name Value Range Interpretation Code Description Data Karoline rce(s) Supporting Document(s) Progress Note [facility] GGMZQh6mCeNJDkNm59/DDVaxTPQbs5SyBAvzDTu9XPyzGFYxX7SiDYR8aN6gNMZ0HKmADsUmWmBiZIX3 lbm [file] AwMDAwODcyMiAwMDAwMCBuDQowMDAwMDEyMTIzIDAw NYPeZG7VGcEuQVRtKPMiBgszRQBbMOYvia6OXEWoVPWdFwZtCQLsOPExVQSsGXmdNBYuGJX6UUS5GSCh VFQzEB9RJgXhLJOcJaKkNgZzCIFrXZMahl7MKRFpMIWdQNS6OMNcXFLjPUQpENhqPYUnFKM5CGB6TGRg RVCoHA0WIdZrQNBlBcG8AZKzFZBlISYbke4PETYeFH McEJL7WhWaYVGcWLHjYClvLJPkXXO6UYJ4DVRzNJAmMU9ZRdMcOTMnNkPlFZRsRQIaTVTvyi4SVAVbTQ UhVmDeOMSkNLJhXPXgYMfsVFRaRZZ5XsCcEOMzNIMfWD0PYrPgDOPnTxa3SACvAZGoPGRskb2KOKXjOQ KtMShrLDJkWQIjORZsBUrfHWPiREH3OSU8TJMaVPTn UI2AVkJhXHYiNlduIfArDBUuZRNqqh8HXNEiJBZeYOJmKYRhVYLqOMFlTLkaMQUxBAJ3ClXdOAIiYYGu GV8HFpFkALTzQXI5QJBqLHYwDROmox4QXZZtOMY0LWw9XdAdYDFmFSLaKBjlWIEhKVJuPYwwWNPfCXIs FZ7UIuDqWTIvNPJ4SIawQCIwACTykt8RKNWePDY2Fs p6ASWjHXKfKZHoOJyiVYWpAUDuMRNaOHIzMSLcXQ0DWaJhPPMhAYYaPFFiLMMbTYSxfm4GjHZpmUevop 8DZXyQRn5IiQapRZU2TNweQq3pxXVdUAUqGEWKKj6OlwWxHVYcYIAJBIjzWQSzKHO2XXDcSONnAXD4XQ t9BZX9Bkz0UZJ0SmWzNIyvXFDgRdR7YLu6ZLUbVAB3 FIJyBbA6MTh7KXReEviaHqI0IYU3R8Q+AB3cWFz+Om1Vg8RnrtR7usUkNCb5IcFnUt2EVKHDQ4CNFl== ID Date Data Source [id number] 12/04/2019 12:25:23 PM EDT [facility] Name Value Range Interpretation Code Description Data Karoline rce(s) Supporting Document(s) Progress Note [facility] ASCZRf5oDfPJVvUl04/AOHcbFZSne5SgIPmqRZo1RBheUZQaQ0TtJRZ6xX9gJAE5CIyGRmItCdKiRJY7 lbm [file] AgICAgICAgICAgICAgICAgICAgICAgICAgICAgICAgICAgICAgICAgICAgICAgICAgICAgICAgICAgIC AgICAgICAgICAgICAgDQogICAgICAgICAgICAgICAg ICAgICAgICAgICAgICAgICAgICAgICAgICAgICAgICAgICAgICAgICAgICAgICAgICAgICAgICAgICAg ICAgICAgICAgICAgICAgICAgICAgICAgDQogICAgICAgICAgICAgICAgICAgICAgICAgICAgICAgICAg ICAgICAgICAgICAgICAgICAgICAgICAgICAgICAgIC AgICAgICAgICAgICAgICAgICAgICAgICAgICAgICAgICAgDQogICAgICAgICAgICAgICAgICAgICAgIC AgICAgICAgICAgICAgICAgICAgICAgICAgICAgICAgICAgICAgICAgICAgICAgICAgICAgICAgICAgIC AgICAgICAgICAgICAgICAgDQogICAgICAgICAgICAg ICAgICAgICAgICAgICAgICAgICAgICAgICAgICAgICAgICAgICAgICAgICAgICAgICAgICAgICAgICAg ICAgICAgICAgICAgICAgICAgICAgICAgICAgDQogICAgICAgICAgICAgICAgICAgICAgICAgICAgICAg ICAgICAgICAgICAgICAgICAgICAgICAgICAgICAgIC AgICAgICAgICAgICAgICAgICAgICAgICAgICAgICAgICAgICAgDQogICAgICAgICAgICAgICAgICAgIC AgICAgICAgICAgICAgICAgICAgICAgICAgICAgICAgICAgICAgICAgICAgICAgICAgICAgICAgICAgIC AgICAgICAgICAgICAgICAgICAgDQogICAgICAgICAg ICAgICAgICAgICAgICAgICAgICAgICAgICAgICAgICAgICAgICAgICAgICAgICAgICAgICAgICAgICAg ICAgICAgICAgICAgICAgICAgICAgICAgICAgICAgDQogICAgICAgICAgICAgICAgICAgICAgICAgICAg ICAgICAgICAgICAgICAgICAgICAgICAgICAgICAgIC AgICAgICAgICAgICAgICAgICAgICAgICAgICAgICAgICAgICAgICAgDQogICAgICAgICAgICAgICAgIC AgICAgICAgICAgICAgICAgICAgICAgICAgICAgICAgICAgICAgICAgICAgICAgICAgICAgICAgICAgIC JtLBHuEFRhHDUbIPKpVRQpNKUdFRCdZEn8V9hbFZTd IPCnLF0dUQw8Rn7+SGoNThWaOWC2nvRrpW0IXI9zs3IjICvnPFIhl7OxDYi8HF3XVBZiHYdlCV6LXVkp sq7OPMMvURIuxDOMy7vuBzHoSWK5PYCkLofeRV4JENTeX8dvzbAlYRVqGCSKRSwaMEWWNPgzKOMNFH6E UdSbO7RyqQ56JJWTMt1+DQplbmRvYmoNCjIzIDAgb2 AuNWx6VD7DMJLySihby3ScCxHcVIXZBYqeIW6YDXG5TNG0POZvOy6GJFJuC253lfFoQQ5ZBw9QSvOvYB 7imd9RFeHdDCAwKraPUhd8OQunGA4KgXPpJHlJgl3hqiKlryJAy4HmeuClsPLUioj5nEJjpMBLQKWiqY 6iMBrtBF3nPDVuPQ0uFU7cJDRqWXX6KlYwSMVGTX5P HALnIPDksPBnMGPlJPZTTI5EMWfoYHE2YNCwtqVqyWIgVZpoVZ8FDIAbqoPnTkGkNESKGGu+Qr7PUA4i j8MeSTfhSIKdXD4khp2DPRoBVxZuN3Z3rKCjM8P0RIauOq8HJGRaPXIsAjBrZAESZYeaDX4SVX8kxrG6 QF4RdNLrHCQkZSVpyPUqYPd2J24dbIQlYFaqFT2KQO A+Greta+Fw6TZFXcOBJoTSWvOnVhEKFWCxRzB8JjK4MRg8HlW8XoJZ68iSmlpqYiFMqmXQ2YAM3oMWOmFU EFQD0QzOGseT9xmqYoSyJlOUQVWdNpS58ahVXvXDHoMVLgENNiHy5ATYNlG3CawlNdrBraryTzGNFePV AEOG0PIVczueNwoNHwwHjjUX45sTquFQ0YSu3CWvMg TQ0bip9NzLRyMh2OGISmMe1IDASjAQJbTHLcNCB2TJEpKcQdOWbaTCJxKREyTQN0MZGgBMShTX8ZZkVg LQEuBrZrJhWhBUGpNZUorp4ALKTkMERbSiH7GhKxGIJzOAJnNIuqVSAjCVNtZMZ5NGFyDJMpNP7IEtSi GPVrGXBePhEoZYXxQTRujc7JELMaRMAgABV9ReLpDB TbIYJwHDyyEBMyWXZ6ARDtNAKtBLClVG1JNyNuFUEdYHtiADCgMKLlXDKurs6RJWQhCIWwJTB1ISBhXH PrWGSrUTldXXXxGCQ3QrHcCSGmGWYfSH0OEeJbZCXeRIJhEkQdFRBtETQjmh5UPBNkMZDwDFW6AIObYS CrYYCfURryAXUkJYVlRcHoQRJzNZYpMZ9OKuDuSURg BYR5CFZxTFPaUSYjug0ASBWzTWRzWCatBYNsTGLxNBJaTPfmFDPlELGnLAwiRJFsVCPhWG3VUbGjNUEu IsV4ZcKnFRPuATIbfl3JWDGaEXTaZdy6DxBjWYSdVUUiILwrTNNrRIMdZTH8RQFsEXVcXU0IRsPnSNQf GoStOVKvHCUtWOYkrx3UNRFoZXWmEZJ9ArSxONCeOB OqLXheHCLfBZB1QhAmXUAfACOjWO9EReXlQNFyQxFhZQZhRMVmSVOopl3QGLHfYPIpSzH0RMStJIZpYT WoUClpAVAtKHU7WNR1DJPxLCSnGG4TZfMfVHcnCMBEHts6OMzgI8s9BZPyGg2NK0Erf8WzAdTnTDDUDZ jbWM7befWrLDPlCg0BN7gRMbpiBKbmC9VkWpTcZ3Bz L6V3KPVaSwDlReH9OJaqVeF1QS6sTHB6RIT2DRXlEuUcLDWhPey5PpE7HwIgQFqlMBW3Maz9ZrJoWI6X Gq8NAzI7NWB6gUUtGo4ZFrB3NgWYLsQlQV7QMSi= ID Date Data Source [id number] 12/03/2019 01:58:06 PM EDT [facility] Name Value Range Interpretation Code Description Data Karoline e(s) Supporting Document(s) Leukocytes [#/volume] in Blood by Automated count 1.8 10*3/uL 4-10 [facility] Called to and read back by Citlaly Jeff in [facility] at 1323 by 1689 Erythrocytes [#/volume] in Blood by Automated count 3.27 10*6/uL 4.1- 5.3 L [facility] Hemoglobin [Mass/volume] in Blood 10.7 g/dL 11.5-15.5 L [facility] Hematocrit [Volume Fraction] of Blood by Automated count 30.4 % 3 6-45 L [facility] Erythrocyte mean corpuscular volume [Entitic volume] by Auto mated count 92.7 fL 80-96 [facility] Erythrocyte mean corpuscular hemoglobin [Entitic mass] by Automated count 32.5 pg 27-33 [facility] Erythrocyte mean corpuscular hemoglobin concentration [Mass/volume] by Automated count 35.1 g/dL 32.0-36.0 [facility] Erythrocyte distribution width [Ratio] by Automated count 16.7 % 11.5-14.5 H [facility] Platelets [#/volume] in Blood by Automated count 160 10*3/uL 150-400 [facility] Differential cell count method - Blood [facility] Neutrophils/100 leukocytes in Blood by Automated count 46 % [facility] Lymphocytes/100 leukocytes in Blood by Automated count 31 % [facility] Monocytes/100 leukocytes in Blood by Automated count 9 % [facility] Basophils/100 leukocytes in Blood by Automated count 1 % [facility] Neutrophils [#/volume] in Blood by Automated count 0.83 10*3/uL 1.8-7 .0 L [facility] Lymphocytes [#/volume] in Blood by Automated count 0.56 10*3/uL 1.2-4 .0 L [facility] Monocytes [#/volume] in Blood by Automated count 0.16 10*3/uL 0-0.8 [facility] Basophils [#/volume] in Blood by Automated count 0.02 10*3/uL 0-0.2 [facility] Nucleated erythrocytes/100 leukocytes [Ratio] in Blood by Automated count 1 /100{WBCs} 0-0 H [facility] Band form neutrophils/100 leukocytes in Blood by Manual count 2 % [facility] Myelocytes/100 leukocytes in Blood by Manual count 2 % [facility] Metamyelocytes/100 leukocytes in Blood by Manual count 9 % [facility] Band form neutrophils [#/volume] in Blood by Manual count 0.04 10*3 /uL 0-0.6 [facility] Myelocytes [#/volume] in Blood by Manual count 0.04 10*3/uL 0-0 H [facility] Metamyelocytes [#/volume] in Blood by Manual count 0.16 10*3/uL 0-0 H [facility] Anisocytosis [Presence] in Blood by Light microscopy [facility] Polychromasia [Presence] in Blood by Light microscopy [facility] Toxic granules [Presence] in Blood by Light microscopy [facility] ID Date Data Source [id number] 12/03/2019 01:59:16 PM EDT [facility] Name Value Range Interpretation Code Description Data Karoline rce(s) Supporting Document(s) Albumin [Mass/volume] in Serum or Plasma by Bromocresol green (BCG) dye binding method 3.9 g/dL 3.5-5.2 [facility] Bilirubin.total [Mass/volume] in Serum or Plasma 0.6 mg/dL <1.2 [facility] Calcium [Mass/volume] in Serum or Plasma 9.6 mg/dL 8.6-10.0 [facility] Chloride [Moles/volume] in Serum or Plasma 100 mmol/L 98-107 [facility] Creatinine [Mass/volume] in Serum or Plasma 1.01 mg/dL 0.50-0.90 H [facility] Glucose [Mass/volume] in Serum or Plasma 136 mg/dL 70-140 [facility] Alkaline phosphatase [Enzymatic activity/volume] in Serum or Plasma 68 U/L 35-104 [facility] Potassium [Moles/volume] in Serum or Plasma 3.1 mmol/L 3.4-5.1 L [facility] Protein [Mass/volume] in Serum or Plasma 6.0 g/dL 6.4-8.3 L [facility] Sodium [Moles/volume] in Serum or Plasma 134 mmol/L 136-145 L [facility] Aspartate aminotransferase [Enzymatic activity/volume] in Serum or Plasma 14 U/L <32 [facility] Urea nitrogen [Mass/volume] in Serum or Plasma 19 mg/dL 6-20 [facility] Osmolality of Serum or Plasma by calculation 282 mosm/kg 275-300 [facility] Creatinine/Urea nitrogen [Mass Ratio] in Serum or Plasma 19 [facility] Bicarbonate [Moles/volume] in Serum 25 mmol/L 22-29 [facility] Alanine aminotransferase [Enzymatic activity/volume] in Seru m or Plasma 35 U/L <33 H [facility] Anion gap 3 in Serum or Plasma 9 mmol/L 8-15 [facility] Glomerular filtration rate/1.73 sq M pre dicted among non-blacks [Volume Rate/Area] in Serum or Plasma by Creatinine-based formula (MDRD) 63 mL/min/1.73m2 >60 [facility] Glomerular filtration rate/1.73 sq M pre dicted among blacks [Volume Rate/Area] in Serum or Plasma by Creatinine-based formula (MDRD) 73 mL/min/1.73m2 >60 [facility] ID Date Data Source [id number] 11/27/2019 04:09:42 PM T [facility] Name Value Range Interpretation Code Description Data Karoline rce(s) Supporting Document(s) Platelets [#/volume] in Blood by Automated count 42 10*3/uL 150-400 L [facility] ID Date Data Source [id number] 11/27/2019 01:52:47 PM EDT [facility] Name Value Range Interpretation Code Description Data Karoline rce(s) Supporting Document(s) Albumin [Mass/volume] in Serum or Plasma by Bromocresol green (BCG) dye binding method 3.8 g/dL 3.5-5.2 [facility] Bilirubin.total [Mass/volume] in Serum or Plasma 0.8 mg/dL <1.2 [facility] Calcium [Mass/volume] in Serum or Plasma 9.5 mg/dL 8.6-10.0 [facility] Chloride [Moles/volume] in Serum or Plasma 103 mmol/L 98-107 [facility] Creatinine [Mass/volume] in Serum or Plasma 0.63 mg/dL 0.50-0.90 [facility] Glucose [Mass/volume] in Serum or Plasma 157 mg/dL 70-140 H [facility] Alkaline phosphatase [Enzymatic activity/volume] in Serum or Plasma 65 U/L 35-104 [facility] Potassium [Moles/volume] in Serum or Plasma 3.6 mmol/L 3.4-5.1 [facility] Hemolyzed Protein [Mass/volume] in Serum or Plasma 6.0 g/dL 6.4-8.3 L [facility] Sodium [Moles/volume] in Serum or Plasma 139 mmol/L 136-145 [facility] Aspartate aminotransferase [Enzymatic activity/volume] in Serum or Plasma 25 U/L <32 [facility] Urea nitrogen [Mass/volume] in Serum or Plasma 16 mg/dL 6-20 [facility] Osmolality of Serum or Plasma by calculation 292 mosm/kg 275-300 [facility] Creatinine/Urea nitrogen [Mass Ratio] in Serum or Plasma 26 [facility] Bicarbonate [Moles/volume] in Serum 23 mmol/L 22-29 [facility] Alanine aminotransferase [Enzymatic activity/volume] in Seru m or Plasma 40 U/L <33 H [facility] Anion gap 3 in Serum or Plasma 13 mmol/L 8-15 [facility] Glomerular filtration rate/1.73 sq M pre dicted among non-blacks [Volume Rate/Area] in Serum or Plasma by Creatinine-based formula (MDRD) >6 0 [facility] Glomerular filtration rate/1.73 sq M pre dicted among blacks [Volume Rate/Area] in Serum or Plasma by Creatinine-based formula (MDRD) >60 [facility] ID Date Data Source [id number] 11/27/2019 01:44:45 PM [facility] Name Value Range Interpretation Code Description Data Karoline rce(s) Supporting Document(s) ABO and Rh group [Type] in Blood [facility] Blood group antibody screen [Presence] in Serum or Plasma [facility] Blood bank comment [facility] ID Date Data Source [id number] 11/27/2019 01:40:16 PM [facility] Name Value Range Interpretation Code Description Data Karoline rce(s) Supporting Document(s) Leukocytes [#/volume] in Blood by Automated count 2.6 10*3/uL 4-10 L [facility] Erythrocytes [#/volume] in Blood by Automated count 3.50 10*6/uL 4.1- 5.3 [facility] Hemoglobin [Mass/volume] in Blood 11.4 g/dL 11.5-15.5 [facility] Hematocrit [Volume Fraction] of Blood by Automated count 33.5 % 3 6-45 L [facility] Erythrocyte mean corpuscular volume [Entitic volume] by Auto mated count 95.6 fL 80-96 [facility] Erythrocyte mean corpuscular hemoglobin [Entitic mass] by Automated count 32.6 pg 27-33 [facility] Erythrocyte mean corpuscular hemoglobin concentration [Mass/volume] by Automated count 34.1 g/dL 32.0-36.0 [facility] Erythrocyte distribution width [Ratio] by Automated count 16.4 % 11.5-14.5 H [facility] Platelets [#/volume] in Blood by Automated count 22 10*3/uL 150-400 [facility] ConfirmedCalled to and read back by Camilo oMhamud RN at [phone] at [phone] by 1590 Differential cell count method - Blood [facility] Neutrophils/100 leukocytes in Blood by Automated count 83 % [facility] Lymphocytes/100 leukocytes in Blood by Automated count 13 % [facility] Monocytes/100 leukocytes in Blood by Automated count 4 % [facility] Eosinophils/100 leukocytes in Blood by Automated count 0 % [facility] Basophils/100 leukocytes in Blood by Automated count 0 % [facility] Neutrophils [#/volume] in Blood by Automated count 2.13 10*3/uL 1.8-7 .0 [facility] Lymphocytes [#/volume] in Blood by Automated count 0.34 10*3/uL 1.2-4 .0 L [facility] Monocytes [#/volume] in Blood by Automated count 0.09 10*3/uL 0-0.8 [facility] Eosinophils [#/volume] in Blood by Automated count 0.00 10*3/uL 0-0.5 [facility] Basophils [#/volume] in Blood by Automated count 0.01 10*3/uL 0-0.2 [facility] Nucleated erythrocytes/100 leukocytes [Ratio] in Blood by Automated count 0 /100{WBCs} 0-0 [facility] ID Date Data Source [id number] 11/29/2019 07:59:26 AM T [facility] [place] [place] [facility] BY 1753 Name Value Range Interpretation Code Description Data Karoline rce(s) Supporting Document(s) ID Date Data Source [id number] 11/15/2019 12:40:21 PM EDT [facility] Name Value Range Interpretation Code Description Data Karoline rce(s) Supporting Document(s) Progress Note [facility] [id number]/[id number]aZSiMzZsQxEBDo lbm [file] [id number] ID Date Data Source [id number] 11/07/2019 02:56:37 PM EDT [facility] Name Value Range Interpretation Code Description Data Karoline rce(s) Supporting Document(s) Progress Note [facility] TZHGOy2zElETAoGh76/IAVxhRFVzf3IgGMepTWs0QEkzLVKfN4VwIYW4rA0yVLG9HTnBJlIoTtLfYZUk lbm [file] ICAgICAgICAgICAgICAgICAgICAgICAgICAgICAgIC ObMATvHZDhXBUzAUMmAMEnAGCiNI3FAPEjMUWeFLFwZMEwJUGoDHAyIIDiQQTkWGJpIQKmEGAiPONvTE AgICAgICAgICAgICAgICAgICAgICAgICAgICAgICAgICAgICAgICAgICAgICAgICAgICAgICAgICAgIC GfER1LFMEqDYWwCUEgJOOtVMDsAULoCFGvCBQyMELi ICAgICAgICAgICAgICAgICAgICAgICAgICAgICAgICAgICAgICAgICAgICAgICAgICAgICAgICAgICAg UTMaKHHpZBLgOQQaEB6IOTWpRXEmRTRyJZWvBHLePKCzQSRwOUNzAPNfCQNjHWJcVXQbRFTqPYDoPOHv ICAgICAgICAgICAgICAgICAgICAgICAgICAgICAgIC ZlCHIqYUKvHLDkZLOvCZAyOIAoYOAkYZ7VDWIkXFCiZMSfNEJwJCUnBBVnQUSqHUGhLEVpNPYwOHQlTQ AgICAgICAgICAgICAgICAgICAgICAgICAgICAgICAgICAgICAgICAgICAgICAgICAgICAgICAgICAgIC EaCYQeYP5DKOSbAYKpWVHeVMIyQSBeOVYxVDYsYUAu ICAgICAgICAgICAgICAgICAgICAgICAgICAgICAgICAgICAgICAgICAgICAgICAgICAgICAgICAgICAg CDYyRVUnGUUfLCScWZUlHZ4FOUTkGPGzBKEgGWJmVMSuOWXgGOBfQYUsSCVqOWYqSQKmZGLwGBZdGRJz ICAgICAgICAgICAgICAgICAgICAgICAgICAgICAgIC HqQGMhEROqMTXtIWIdSZVdNQJyQCBgVQCrGN1DWOAqJPJuSSFlFCQtCUCfYJQcYFSsIMKwZRKrVRIqZX AgICAgICAgICAgICAgICAgICAgICAgICAgICAgICAgICAgICAgICAgICAgICAgICAgICAgICAgICAgIC AsYGRoZTZoGB0OVHStPUGyRTLuOYLySQAyFGWiGJRw ICAgICAgICAgICAgICAgICAgICAgICAgICAgICAgICAgICAgICAgICAgICAgICAgICAgICAgICAgICAg KTQpGVYaTUMsJGHyLMPmZVGfOX9ETXAyRURaRETlEYVdVDCiXYJgVTLiCPOqRVIkKALwIVHsQGVxBWPh ICAgICAgICAgICAgICAgICAgICAgICAgICAgICAgIC HbREOeFCAcMTWdAONeVZNfNEHfCFEhGSRzSWOtXT0FKT13lHIvr5X7VQUxSR1nnxp/Fx6QMNxiiePghB BfUQ3EBgBfPY2cwq0HExNeFL8rfl9BZAiIZaIzG8V5lJJlSKDfBOLGBeKgR21bMVxiHx61KXwdQYVvEy GdTVk3Lj2QDbPpN1jzYOHjLoJ2CKVqPlV0HRVyCnAj ANDxNLChMV8VFTMqK060hmZhCv5EFv8QLcIjUG7emr5QEqFiBTWhJfzZSld1LQpuYX8RrGNyqFDaOQPy FXFHYuWsS8prt6RxAyCwCGMVYYvmJD5Jh8OyaNRvQKi+Fk6OIG1xz9CpCQltSUJdZP3lre1ELDaMUrPd A9UxvMrdNVYmd6hiMSFhXU6kpIYhEHO8AAKmbIS3MC 96QIElK4fcz14bZFRDNmNmfVU4SfUsQmKpBFKwWrgfOUUEZOeNDdVyU4Bbv7ViBcT0ZNLdBcQvEXeeTF XuFrF0FA33rQmaGF0HUOTpFYRfQJ18EWSuMSPaNq8KEp5SQbBuWM7cly5MNdEmPD3vws0TUIvDFxSgM2 M4zZXxA5Zmrv71ME9UxVM8uEDkJX3LmQ3eTC3Kq1Ti HDBiGfEtNFCkCMMjUZGaUEFkSeZhLM2SYBTwUrMjzZVsZMDdPWplREUlAwN3GdHpUC2PMGZdUAX6AH2R LK6UXzriJ5NDDLgzwQfaLtGENRG/JUFZKIWZTXlwEAItH02SK3CTJLcMSffnLMxTLtenHf2iYDk+Pg0K OB6ha0GzJZgnByXrTN1bwh1RNQvCOePyU7I1oUBqB7 G5GOwbQd8CDUJhCJWaRvmiGUFWGPamOU8WVC9wheS2TI5VpEFiAZIjZQOuqFYsREj5K47baEFaMPyrHK 0KICA+Greta+Kp3GDYNzVACfLDMnEfOeZGSHBcDuM4SfY4AHs8YmW8RaTM01dThczfWeQRtxWT2VUB4xCN RxUEBGTA1BqLGpoT3krlWrRZVkOVNZPlMuP31bcAEy AUJrRML5TKIsPy3RZKXbA9NxbkCliSrxgcKhWJAdXLMEWH9XWRonefGotVLxeLvmQR08cNujLW0CIi0F QiKdDC1pxa9QiNDhTh4LYEBaZf9MWRXkQXNbQDBfLBJ4HPZmEvSsSAklEUFjHNMuRSN2VNKsMYUyCT8F LrXoTNOfChN8HDBeSURxHQWvhh2EMSDrQKCyYPmdVu FnQXDmYAFnZNxyMOUpKNVhGJD3ICMaIMUyRD4WYhQkEMMkMKDmFLXdZSSmHGUupd4VKSCzEQDeQUL0EY GjUEEcUPHmJBxyOCGyNEWsCVe1MUTwNMCdQC8JXlBmDULtNUC0EtEaBARvVZCfhb4UXHGwXMWaRyg3Ro SaUWXiDYSqRRsrBYPyZIT8IPe2CMJkYRQhZP7THeOg ZOSnFClaWixfUEIqXWHjra6SGUMfRSLnJEGqRSTbPOAyJMRgWXaaUQDnRUIhUBN1MACaKHLuUI6FNeMg DUJxHFS0ECejVOTuRSSior0KXFJmCPDpDSR0ZFTxWAEuWOUnAPkoMDCdTQSrXhyqRZPvGIFwTY2DOcMp WFIbAEP2EbbvGHDuIPCloq7ALRSpJVDsQgV1GLGkSB AqIVMaGPxzTKXlTWVqQjTyCBDsCGKmRY4XLlNyNGUuGiM0FkHrUHSzMHZtaw5GVDIoMLPhCDC4JbHoJW IiBULyQQqqXYHyPFK5ZpL3UASjRUNrNU2DUtXpMZSlPgHoSgFsYFTzSOCjjt2QRKNsICIvJUG2OuOhHI ZzMFQcQQiiQTPoPCJ2HpM8FKEuIOXtDU3VOoAiDDMx OcM3BcwcQGDsVWKnlo7GVXFxEHEzLcw9PyRfFGHdACRhDLfbZDLhRGL7UOI2GJQfUWKsIT7PKxBkZISr PhogDyvrOUFaABNmvh2HSNMvYZXtHMspMPKsQGEfKZJyFJlnSTLnBUV9UYw6NLFxKQFtYB4NCwJhXZDo NssvSWAeTJBrMCAvqn8SvUPvgIvrgl2BTFjAAs6JoZ koNBUpDYejZt7qeKHnPlPhCGNYYq5XpnFeZQMmFFQZXBpfGRLxORHrKOE7TqukAHp0OTmsJjMkTAWgJB GxGJr8O7IlHkbdUjB4X4XhMmGcZZH0Efm2A0K6IiKaEeGyQqU0AUbzLUBoALW+IB7cZXf+Nr8Mc8Ycvz T2syVtGWdcVNQ6WO6NDRZIV9NMJs== ID Date Data Source [id number] 11/03/2019 10:19:16 PM EDT [facility] Name Value Range Interpretation Code Description Data Karoline rce(s) Supporting Document(s) Progress Note [facility] EYUATn9vGhUDVqPy76/OALmjFOXvy8BwHRmjOTe7UOubBSNoS6QhEQC4zB7bMYV1THiILhOsGmJdVMG0 lbm [file] DQypIIJBTb6B ID Date Data Source [id number] 11/03/2019 10:19:11 PM EDT [facility] Name Value Range Interpretation Code Description Data Karoline rce(s) Supporting Document(s) Progress Note [facility] LQJCKo2cZoYXRwDb48/YSZrjLXVcz9PkODpsICu3ONcxZSCmH4YdRNT1uX5jEIT2YVuZTsRfYwBiLFU0 lbm [file] JDaNtUiTlHt25GYCQ1gXuaMVaNYqTjzd+FnQEC/[employer] [file] TnP/YS0T+Agustín/Z+H6oWqlZ/F8Q5Mdug8R/RuqZ4G5G [file] ICAgICAgICAgICAgICAgICAgICAgICAgICAgICAgIC AgICAgICAgICAgICAgICAgDQogICAgICAgICAgICAgICAgICAgICAgICAgICAgICAgICAgICAgICAgIC AgICAgICAgICAgICAgICAgICAgICAgICAgICAgICAgICAgICAgICAgICAgICAgICAgICAgICAgICAgDQ ogICAgICAgICAgICAgICAgICAgICAgICAgICAgICAg ICAgICAgICAgICAgICAgICAgICAgICAgICAgICAgICAgICAgICAgICAgICAgICAgICAgICAgICAgICAg ICAgICAgICAgDQogICAgICAgICAgICAgICAgICAgICAgICAgICAgICAgICAgICAgICAgICAgICAgICAg ICAgICAgICAgICAgICAgICAgICAgICAgICAgICAgIC AgICAgICAgICAgICAgICAgICAgDQogICAgICAgICAgICAgICAgICAgICAgICAgICAgICAgICAgICAgIC AgICAgICAgICAgICAgICAgICAgICAgICAgICAgICAgICAgICAgICAgICAgICAgICAgICAgICAgICAgIC AgDQogICAgICAgICAgICAgICAgICAgICAgICAgICAg ICAgICAgICAgICAgICAgICAgICAgICAgICAgICAgICAgICAgICAgICAgICAgICAgICAgICAgICAgICAg ICAgICAgICAgICAgDQogICAgICAgICAgICAgICAgICAgICAgICAgICAgICAgICAgICAgICAgICAgICAg ICAgICAgICAgICAgICAgICAgICAgICAgICAgICAgIC AgICAgICAgICAgICAgICAgICAgICAgDQogICAgICAgICAgICAgICAgICAgICAgICAgICAgICAgICAgIC AgICAgICAgICAgICAgICAgICAgICAgICAgICAgICAgICAgICAgICAgICAgICAgICAgICAgICAgICAgIC AgICAgDQogICAgICAgICAgICAgICAgICAgICAgICAg ICAgICAgICAgICAgICAgICAgICAgICAgICAgICAgICAgICAgICAgICAgICAgICAgICAgICAgICAgICAg ICAgICAgICAgICAgICAgDQogICAgICAgICAgICAgICAgICAgICAgICAgICAgICAgICAgICAgICAgICAg ICAgICAgICAgICAgICAgICAgICAgICAgICAgICAgIC FuZODtIYBeHUWpMRIcYJJjKJSeTWEpUQDuCOq2I6qhEBOtSEEmVS3fLRo7Fd8+KLrHVcMwQEA7mkAcmH 1BBS8ts8WrURcxOAMfz5TzXFd9YF6SFANbIXrpVY8FGDntra2TMXSzDSOpuUJMq3ncVcEdGVC5EBFyFp wrVO7AUGHtF2wjfzWcGZLkCWHNMFhvXQAQICHpDMBv VxYuXkHfZWMcSMMkJYDHVJ2ONaWvM2MnqB57AFJSZg3+IHothxIaQwcVFoNgUMFcv7EqHTz0BV9SKHUf Uldex0TzHAVsSJOQHTwtTN9AUER8QTBgQJAhFg1OUKIdK962dvFzJC5ZOb4PLeJgXG3rpx2RDHQaWISr KrvCVqn6IAhgLF1XpSYmXJtIux3hlcNbdjCBg3Rclq NpvIJQDA2qyYLbslXHKZhqyPHjrty0G2goAF3RXZH0WRilAUNaJvQaCFVgVUweYDTKQQvMOvKkE0Ewz9 VvTpN6ODPwNiGoTMazOOCnNpJ4KN53dMejPM1FZKYlEZNwUC96YUKcUQViPx0IHl7IDqFvYF4zeu8LBl JmXD5htd6JOJaQRhXzN6I6gJNwY8Mnzr67IB7CzQB6 lXZdXI2HnE7tJM0Hn7AmTFEsOaQhTLMyNLKdJFZiJZFfAbVqMP2CSYRnLvRqfYFmIVAbGbwsFGSyJdLg GZwoJH7JRENqCRE5LA9HLW2EQvpxC2YTXTklkAsvJwPJMII/MZTXOCOZPZlaUTFzR05QF5VGHZlROlae NHsXCoodGt7sILh+Ej2MTC1je0ScOQf5PsLrER4qie 3WUKkQOvKwW3S9wCBwA2W9AXrrAz7PQAYkUTPlCodbRXMEIUyiVW0EUO1gqaF8EI5JiGXiDLJgOXSwbP YsKJh8Y21ysNLoKVyfAU0IJWP+Greta+Yj9HTWClCJCxLORoKrOcEBTBLlTdP2DqI3OGd8GoP3TaXH03jC bxlaMgOPcfTB1BHO0mZULxLURADR7KlMOacE7eemA9 GZJlLXICPdQnK15qhVZwVSEfFAE2CHKhOy6BWWSlT8PtkcDyjYksodDoTKIjXOBBEU6ONOkqcrVmbXVs kXapMT29uJmxZU0UVr7WNyCzGG4kwe0MeIVhSv2CTTE1Ik7WBTAlHLZrWRIzYSD6CFKcEoScNBwyTQEr DMSqBMH6KXJqWJBaNP6BRcAmQAAcHRd7ZiRaMBUlJH Xcjj7DEEVhOKG6XNDkZmJuJCLoFOSdKCqhMECvIZNtFYV6XJCtFFTuVU9UXbNjVKBmPBJdRVWaZKZqXR Pqhk6QAWPrBMG5NFY7NJDoAZMhOLKxIEwrUGVgJHV2VuToQHNpNXTfOE5JOmEmQEAcUAocNtghAZWyRF Hdcu9XGGTeFIOlTPU0KWHiILJlBOHzWEdbFKPyIMJw GMOhGQRpITTwWW4CMtSrHUHeJKT9NZRfRLObXKGhca2FTRGvROSsQDzeTJBiIUWpKLDdDAwpOAFaAJX0 DKK3YKOcELOuFS6SErSuVCXdLLxyHsMcCAMrIAIdaj7XBZRkIHVhEKRhSiTnYSBgYJEuTNfkTCGjPXX4 OKv1QQPzGBIhUU1STrPdZGTmKEp8MGCeKMQpZOEesb 9KDVUeRJOvFLd6XlLbUQNhLXNoZXscEZKpDKJiWIP3TARvMTZfLR3WDqMqVGSlJtEvZawyACCsYTJyun 8HHFWaAYPtMWSfZJUrOJMyALGfHYqvCARfMDGpSBqnTAJpZYKtBM6HKqJwBXUuXPDcXdEzUBIhDNPdph 8DFYHiSUZ5AEO2LSTdVNYoBPMkHQomDYHqFGXqNDI7 DSEaYLDvWP9LYmQmXOOjRUFvWqPhTSZfDXZjzp6XTPYnQVK1EoQdCHGhPRGuSPToRXeqWDGoOXXzWod9 KHYnEIYqQU0DFiTxEACtDFF4AmUdNVCgLLOahf5CNGUaYIK8GKXgHqDnQXGhEVGbVQamHCOcXJR5Ylf5 JIKlOUFxLG6QHgJwNEIhHHH4TkTiFUHoHIBotp0USK VrBTJ3MJfpVDVxKMLdFIZqZXgnPSCcXXW4VUQ6TDOwUUVcQR1OSvAdAQTvJFMnYSTjITBeNNTiar2CWZ ThFOZ5FuXgFEFkHIGjAVWtMTonHVKkYVN8JsWfNBQdJTEzXL0QEgHvBNMbYUj9TZHgNPQxRVVynv3QAN EePSL8Qnp1UbJhHHXvRYLlXAfzOMFoPRU9JXEeRUUv CSAeLL8WDfViAZOlVLo4WMWiHTRwWMGngv7OXQHtWCJ4WMngUXZgPOZzLOXxZPo0naLvgMHiRIw5HM6F G7HhjcLlXLSONa1Qh451HWJxFUCsBl9WO7rgQr8iDEGoUDNPMe9YIFk0UIDwJrJ1DOEwNNUnXFL0IKb4 YTMwYmUzNzJmNGEzMDY+TPo9UMGiYKAwOnU1UhKdUY NaAokmShEaYNS6TqG2OFUhRa7gTFQXCk6+ZWgsfCXeoKzpQOKBAbEzCSk4OEfzDZZYCl6E ID Date Data Source [id number] 10/30/2019 05:01:02 PM EDT [facility] Name Value Range Interpretation Code Description Data Karoline rce(s) Supporting Document(s) Progress Note [facility] EQRMRv2yOgWCRrIs33/OWPilKIKvu8MwBFxmOGc0JUqqVCNwQ8HrKZD8tK7lOWN3QEvHOqHuFgBjQLA7 lbm [file] OBhmkRSivMzvZPVILlT7HbE6TYbiFXUINj8C ID Date Data Source [id number] 10/25/2019 09:31:44 AM EDT [facility] Name Value Range Interpretation Code Description Data Karoline rce(s) Supporting Document(s) Progress Note [facility] MKXFEz2sKiRWRiXe98/DZYoiDBFzh9BrBWvcAXq7NVqmHZZoV8KhHTD3pH7eXYU5MHkFLnHqJqFnVWXs lbm [file] ICAgICAgICAgICAgICAgICAgICAgICAgICAgICAgICAgICAgICAgICAgICAgICAgICANCiAgICAgICAg ICAgICAgICAgICAgICAgICAgICAgICAgICAgICAgIC AgICAgICAgICAgICAgICAgICAgICAgICAgICAgICAgICAgICAgICAgICAgICAgICAgICAgICAgICAgIC ANCiAgICAgICAgICAgICAgICAgICAgICAgICAgICAgICAgICAgICAgICAgICAgICAgICAgICAgICAgIC AgICAgICAgICAgICAgICAgICAgICAgICAgICAgICAg ICAgICAgICAgICANCiAgICAgICAgICAgICAgICAgICAgICAgICAgICAgICAgICAgICAgICAgICAgICAg ICAgICAgICAgICAgICAgICAgICAgICAgICAgICAgICAgICAgICAgICAgICAgICAgICAgICANCiAgICAg ICAgICAgICAgICAgICAgICAgICAgICAgICAgICAgIC AgICAgICAgICAgICAgICAgICAgICAgICAgICAgICAgICAgICAgICAgICAgICAgICAgICAgICAgICAgIC AgICANCiAgICAgICAgICAgICAgICAgICAgICAgICAgICAgICAgICAgICAgICAgICAgICAgICAgICAgIC AgICAgICAgICAgICAgICAgICAgICAgICAgICAgICAg ICAgICAgICAgICAgICANCiAgICAgICAgICAgICAgICAgICAgICAgICAgICAgICAgICAgICAgICAgICAg ICAgICAgICAgICAgICAgICAgICAgICAgICAgICAgICAgICAgICAgICAgICAgICAgICAgICAgICANCiAg ICAgICAgICAgICAgICAgICAgICAgICAgICAgICAgIC AgICAgICAgICAgICAgICAgICAgICAgICAgICAgICAgICAgICAgICAgICAgICAgICAgICAgICAgICAgIC AgICAgICANCiAgICAgICAgICAgICAgICAgICAgICAgICAgICAgICAgICAgICAgICAgICAgICAgICAgIC AgICAgICAgICAgICAgICAgICAgICAgICAgICAgICAg ICAgICAgICAgICAgICAgICANCiAgICAgICAgICAgICAgICAgICAgICAgICAgICAgICAgICAgICAgICAg ICAgICAgICAgICAgICAgICAgICAgICAgICAgICAgICAgICAgICAgICAgICAgICAgICAgICAgICAgICAN Cjw/eLFgS8xrcIRtubF5E9ttXd4XZl6MHQ4wc8WeRX OmJVblswCvAxcMGcIoCXMtZnxQOgd1MJseEV7RkHKvH9VaH3OiJUgcZP7HWYBePHLogLDpXOKoVOOwDz G1GGZyISckHV0ViHVwNAscTYHnEPNuED8OERKqE261dpTcQW5AGs8LEcDzLY6tjv8MPJgqKYByXivOKn w7SKrvMK3JyQWkbGEwFTDeVKOQUqZyL5aqv3XkDxFy VVYZLRiyAE4Tb1XcyYDsDYb+Sd2BMH9tp5VvBWwgAKRaJK7qdi7GXTePQvCoW7LcpOulEOYtq0hvXNHw XR2vjOZuIAI1CAusisZpATEeHLOabSnsRAIxjDSncLSkEHsOB9ltYKNsTJ5pRZ4bJVYyCMJqZjS2PFBT NO9EXSHdGGXjjCFrOLNcRCGFYR4CJAyrHDC2HTYhgh BrbCLuFIayYM2CMLIyakEfWNtcIVSKODf+Pa4NSY8hb7MqPUhpPAQlXA5jrz9EMQiTZkNoI4U4gYHvF6 Y8SQqwCq0QASCfRUNuJLreUYTMXUvaCH2XBI9bxzO5HX9OwAOaUXWhWPFzgBDlMSa0U97yeOMyTEeySE 0KICA+Greta+Vg5VCILxAVHqTYJnQyXjRVKKQaGmI3Wr U0SRd2LmU1CrCQ40mKkqdvPzVHytHV7ZDT5sQBSpQKVQKF7TcMTxmD8wtrPoUZPcBDAUCzVcC20fvONo WQHsBHL4YTYqWt4GXXSxZ9ZrooOktIwpsyEyMHCxYBXSOO1WRWfuhqCibCIriBvwZG44pVndIB7DKe0G GxDlWM5jod2CrHUqHh4RDLVbBy9EYAQnNHEpFZDkCG B4BFGfWrUtIVsiSNIbDZPfLEJ8YCKnJFYyRS8UMwJlYZHpZWhgYLOkRFRqPJFpgu8SBKTeWEHvXAy2KO EgMUBrYTBfNOzzSKHqJDCkHUX8MLRnFYWtNV3CLyTgQHCrBXX1ZiUhJUAwUWBtar2FTOZmDMAmGoX3WF HmPNXlMTAdTWynZINmYTZ6VOU0KNCqKQPkVL4VEyGr CFQqJCSdLrKuINGsTOIkmt1FPVCzZWUeTXJpKSAyQSYmSJJgEBzwUSMbIRG3CICcVJCdJPAfKH6ZXfXl BUKjSFK3NkFtQJAbZTGtjt8HMSZlGGKyULh2OyYbRAWnILClNJhtFDXnJRP2MiR4AQRvUFKdXP2CLrZl LYGyAAa7SxDrIUTyFZOhcp5YVUBkPSPlHxjmJrHsEQ IgRMVfCWzbLSPvMUA4KPfbGUYhOSIeTI4UBpPnZZVwWYayGPqxTUXwVLHbsq5WFJYrZOMjOYQdRUNrDD RgZSKbVIsiSJRjEIQ3SKQ0RVDgRVKtLX2DDqQlYRMvFaEbGjvzYPSgMWWjgn8AZAZzNRSzOVB2JbWoUG EbLXEbCEd5muUkeNZfNCm7MT4LC5LmilRvLrQBFs3D q865QMRbPGJcAk4QC8sbEh3fZRFiISVXQt5QLZr0XYTbOxR6OWAjWQWhUHGnDFG9UpSeOYR5OYBoFBCi NDA+BLegStYqEiztXSFcQnZnLuEaMFw6PCPtQUYaJCE2WTH1WP9jNWLQWg5+DQpzdGFydHhyZWYNCjIw JLRvVPooUJMCAu1X ID Date Data Source [id number] 10/22/2019 11:43:06 AM EDT [facility] Name Value Range Interpretation Code Description Data Karoline rce(s) Supporting Document(s) Progress Note [facility] TRSENc1mZxCJFgAh42/HEHzaSXHjl4TtUQueZVh6KNriLDRqN5OkUBY9yB5xVFH1EUiTIjCbZpKzJSG6 lbm OhBotCMpBqXDSsPoqHLbShXJmaGclwdLYkCB8CwXT4STQjU38dGAIqHCBvD5LeYNLvNNp+Ru2KVWXobV XxSG4QYmwW8Luqb8s4HZ2wpB6QOCXZLrxL1Q0FInXy5gKybmRrMbqeMpdMFeyFicrd4eypW2qC4c+UOQ 8bfex07jN0GHyfU5irNF6/V6KuWb7RP0M/+WOcKnEx Et9/JxbbfDXftngkm+BU1mNnec6Ij4446dPDG+fafuJWYlyG2gTXZHUAsLztNGiRP64nh04sHhIdgNUZ 9p0dEVYNviACRxmskXUqvAe7gqPlZKa05EqWH4A0neyfHUGYZwDqzTSLTRvmfAwgPesAurgPR1yuddFX uAjyGLQcXdZfQ5yIIiZiSq6uy511qfsAnJaYjn83e/ 8TWyxpcoGe63goT7NcNdfrzQ+pWg7LOsjcQh8YdhYdzNQx2XdHZbLW1Ogmj2cdwxOx0OAkYTR0l7PcLO Jc4qv9Ssg50LLRG/ZV4z/fBWvV7gl1yo+K/lC8fDI9PdoNhbBUidYG32uAR3QEBaAA8Ki2FfgGxUPq/V Bd6wZfCzn/r+tlzkwzU7Fa1qA7i/4vPjVOYcppLNv7 bx2Z/J4ufmcTDzP7/oFVtFOiqYJr4d29UDt5Gp7F9rWWbtodQTjGUnJ/MCiyqcPsotFrVclInOZFMZyK /B5BE01H4Ke6fw+m93z/2aE4/F0OF5HbqwmHu9f5iJXw43FTyQHrdz4h8pjvcL6ErreqWx7PA5fZpxFO 13c3NadzbMC4f6utJ/r01j463V2F68AF7Bcb4uLX+v [file] 9OFWEnON4JBLAgEGInCIMRCfCiPJJkDpBaBRQqZHYM Hx2PEbWaM3wBBwbxK5XfNCkcMi6OZcZfP6P8jFpXzZW7EIJ2SC9ZQsKTHoEaPEz6X8K6eYZvV9B8yAfW vJE7HE1YQT9EUNYzPW2+TxFpJ9SSPNaDTDM2XO1GkHHgHQ0LhUWDS0GbnFSvAd4pIEIqgCmzaUt+PiAv E3UQYRKJFYS6NB1RmKRoVA8AbYSFW4SppEOeDr1aQA baRyGzKL4dLH0+QF9WHNUQCbKJHkCfSMxoOLijDTAxGYd1V6L8RDHuO1ZER1A7C5v7n4jobf1+IA0KIC GsU2OLLPCPZvDwHEhsBHwvWHNnSOp9K9I8CSRgH9ERE0tyC9q8MY7+PiANCiAgID4+DQo+Wi7JBJ7hj1 AmAQicINOsSZ7bmz1OIEkgARZhX6UiRDRlQSwiC4Qp lEaxMZ4OBWuqKZbjOL5MIOXeHWK5HU8+YTggkFRyGB5XXwn/kWSrB6ezkPPtRBxttu5t74z/MzWoOZ9i CoYENC6zF0MvdTn3gnHXcs0EB0uqLicdWi7+PDlcOJq3NbdipU6ryNPedKj1wAR4py3wIb2zVCqaWEir iD4woaR7yO9aFWSuPlS4imH6hMS6UA9yKq0BPYSgIC hqSAX7OaRJNTgnxS2dFjRhPl8hmYE9zLtvM7y7bj16Qc6engquRZn0IF8qVr8yOd5xMVWbk2uliDV7KV 5zIyc+KGzgZCHpTA8kDMJ7DjQGLy0XKID4V5h0wG8wyBV5RC1RQcDxYDQiVZAwFBXqQQIwGSIxSYCpLO AgICAgICAgICAgICAgICAgICAgICAgICAgICAgICAg ICAgICAgICAgICAgICAgICAgICAgICAgICAgICAgICAgICAgICAgICAgICAgICANCiAgICAgICAgICAg ICAgICAgICAgICAgICAgICAgICAgICAgICAgICAgICAgICAgICAgICAgICAgICAgICAgICAgICAgICAg ICAgICAgICAgICAgICAgICAgICAgICAgICAgICANCi AgICAgICAgICAgICAgICAgICAgICAgICAgICAgICAgICAgICAgICAgICAgICAgICAgICAgICAgICAgIC AgICAgICAgICAgICAgICAgICAgICAgICAgICAgICAgICAgICAgICANCiAgICAgICAgICAgICAgICAgIC AgICAgICAgICAgICAgICAgICAgICAgICAgICAgICAg ICAgICAgICAgICAgICAgICAgICAgICAgICAgICAgICAgICAgICAgICAgICAgICAgICANCiAgICAgICAg ICAgICAgICAgICAgICAgICAgICAgICAgICAgICAgICAgICAgICAgICAgICAgICAgICAgICAgICAgICAg ICAgICAgICAgICAgICAgICAgICAgICAgICAgICAgIC ANCiAgICAgICAgICAgICAgICAgICAgICAgICAgICAgICAgICAgICAgICAgICAgICAgICAgICAgICAgIC AgICAgICAgICAgICAgICAgICAgICAgICAgICAgICAgICAgICAgICAgICANCiAgICAgICAgICAgICAgIC AgICAgICAgICAgICAgICAgICAgICAgICAgICAgICAg ICAgICAgICAgICAgICAgICAgICAgICAgICAgICAgICAgICAgICAgICAgICAgICAgICAgICANCiAgICAg ICAgICAgICAgICAgICAgICAgICAgICAgICAgICAgICAgICAgICAgICAgICAgICAgICAgICAgICAgICAg ICAgICAgICAgICAgICAgICAgICAgICAgICAgICAgIC AgICANCiAgICAgICAgICAgICAgICAgICAgICAgICAgICAgICAgICAgICAgICAgICAgICAgICAgICAgIC AgICAgICAgICAgICAgICAgICAgICAgICAgICAgICAgICAgICAgICAgICAgICANCiAgICAgICAgICAgIC AgICAgICAgICAgICAgICAgICAgICAgICAgICAgICAg ICAgICAgICAgICAgICAgICAgICAgICAgICAgICAgICAgICAgICAgICAgICAgICAgICAgICAgICANCjw/ dPOwI3jseIRrzeZ5O3uaNk9JEm9ALM8pr3XwVTMuQTmcybAzMnnEPwPeQXMaZnaLCbj4VEepQK7ThXSl F1FsG7DsMKybJM0AXBQqEGYnsLRjEWInUXMoZwT7DP VeFIwwYG0XdKXcXKksEWOyEXWgGE3JZZZiU998fbFjQQ5TZl8JHdFyZV7qgq7RHYrdVHZfWtiLUiw9LP fvCF3XzQVmeVPtTPVhVZYICwTpS5uxc1MmVeGyTAZMOEypLD5Tm3SflHBlTJg+Ra8ZMV5ia1XiISpoET DoTA6qvd0PVBwHTyNfR1AfsXthIDMck4zpHXFzLU4k rORtTRT3MEirqpYdDIHdZIWosSssGYVphGGexVHaNTpUW4ivLSUiVT4gBw8kFMXmTFWcOaVeAOHFCB5Q KCAuRLKubLYyYOCwBRFIUM2IOZbkLMN7CQVkbcPuaZVeIIdtDV4NZHMwayEtIVslUFOLFEd+Ys6YPB9v h8VwZAmpVQBhGM2big6CKXwHJnAtK4V4pXTtS1Q4WI yyMq3ZJQJnYKPcGSipSSYTDTkbVK3KNM4ihpV0KG9TeJBlCKZdQSJjxBGtCFz9R44hqWJpIKjkOY5YMB A+Greta+Zq0OBCMiCREaAYZxKsMuOJBAEqFgY7HzZ2BEe0PqM4AqKH53lCmqsyWhNCugPE1PJZ5qUAQmTH BNOJ6KyHWaqU7bggCwRHBiMVACRhYbW29owRMvXWMv MQY5QRPeNw9AWEFgO4OkhiVtzYsmjjHaVRTiPMXXLI4DJWowueUtwFIllYiwBG57jWoqUC4NPm7NJtTh VK3jng0UlCChOr5DWOLdZk2SFWDnGDHeZJRnSTE2GQRrCxJfJPlwESKuUAUkCXY3UMMmQIDuXO2GEjUj MVDsZLn7KdPwOAFaHUPmof7UAIXfUQKdYVR1MITjZI NzLJFwENjnPKRxWIUuQWX9FIZrCDXoPA7LKoOcRTXmNYOhUBflADAhTWHdqu1GRELcEFUpGbGbDAMoKK NmKNUuJPxiCVBfIBQkDNDhTGIaDGJgMQ7RHrJwKLXlLFA0STBuVSIwMFXoug8WGYIzFISkEpyoBkIoAI ZeLZDrKJyeTQQsIUZ8Txr5IZRfTNMhVN7CLjLlHUDo ZSE1BVTmZXOgYPWxvy1YXQMcAIXiNCJ6XxCsKOSdDZReDHsxIWEjCMH2OLV3OVPbISQnLO8SVyRbXVDq SDP7NDLxIMTmURYwbt5GRLVaVTZsUkN4GiXcZWFaIYDrAWveIERyZVC2KaTbVVUiNSHyNM1SDzQrYDAr BPq1MIokTGSuZVRemk2LUETqUYFkCoa6CUWzUHFyDE WlZSwlAWJsPRL9Llx6CNVyIHPsPK1FHfXtVGPhQOmuVYimJGAkEDQhfk1OZFTvRGVpYTDwFfOzKQBzTD SdPCt0uoWtfCLqYVa4VQ4IQ4XmtqCrKoTZLf1Gp775SOUkKAHxJy4LD8bsKz2lUBHdBQVHGo3KIRt7Bo HpU5HtUsTfMwM1A7VyJJCxDtUtOFenAUZdBqAqCKC+ LXweMDMgLxC0YeS9CIvdQyX6SQRbBWJyD9X1AZZtHOO4Ru3nZKAXKx6+BQkpfVQhmKznUDSPGmI3HjVc EHakTCPXRw9T ID Date Data Source [id number] 10/15/2019 10:14:11 AM EDT [facility] Name Value Range Interpretation Code Description Data Karoline rce(s) Supporting Document(s) Consultation [facility] IOJBRh3uEfYXJxHf05/TQFbpLCXro2KcDTgjHXe2SPgvEAMmE7FoTYU2iT5eUTH8YVkJNvUgLcZuNDFf lbm [file] AgICAgICAgICAgICAgICAgICAgICAgICAgICAgICAgICAgICAgICAgICAgICAgICAgICAgICAgICAgIC AgICAgICAgICAgICAgICANCiAgICAgICAgICAgICAg ICAgICAgICAgICAgICAgICAgICAgICAgICAgICAgICAgICAgICAgICAgICAgICAgICAgICAgICAgICAg ICAgICAgICAgICAgICAgICAgICAgICAgICANCiAgICAgICAgICAgICAgICAgICAgICAgICAgICAgICAg ICAgICAgICAgICAgICAgICAgICAgICAgICAgICAgIC AgICAgICAgICAgICAgICAgICAgICAgICAgICAgICAgICAgICANCiAgICAgICAgICAgICAgICAgICAgIC AgICAgICAgICAgICAgICAgICAgICAgICAgICAgICAgICAgICAgICAgICAgICAgICAgICAgICAgICAgIC AgICAgICAgICAgICAgICAgICANCiAgICAgICAgICAg ICAgICAgICAgICAgICAgICAgICAgICAgICAgICAgICAgICAgICAgICAgICAgICAgICAgICAgICAgICAg ICAgICAgICAgICAgICAgICAgICAgICAgICAgICANCiAgICAgICAgICAgICAgICAgICAgICAgICAgICAg ICAgICAgICAgICAgICAgICAgICAgICAgICAgICAgIC AgICAgICAgICAgICAgICAgICAgICAgICAgICAgICAgICAgICAgICANCiAgICAgICAgICAgICAgICAgIC AgICAgICAgICAgICAgICAgICAgICAgICAgICAgICAgICAgICAgICAgICAgICAgICAgICAgICAgICAgIC AgICAgICAgICAgICAgICAgICAgICANCiAgICAgICAg ICAgICAgICAgICAgICAgICAgICAgICAgICAgICAgICAgICAgICAgICAgICAgICAgICAgICAgICAgICAg ICAgICAgICAgICAgICAgICAgICAgICAgICAgICAgICANCiAgICAgICAgICAgICAgICAgICAgICAgICAg ICAgICAgICAgICAgICAgICAgICAgICAgICAgICAgIC AgICAgICAgICAgICAgICAgICAgICAgICAgICAgICAgICAgICAgICAgICANCiAgICAgICAgICAgICAgIC AgICAgICAgICAgICAgICAgICAgICAgICAgICAgICAgICAgICAgICAgICAgICAgICAgICAgICAgICAgIC AgICAgICAgICAgICAgICAgICAgICAgICANCjw/eHBh N7kibALylqW4T0jbGv8FDg2HSB2by6EeXWYqNLnnxiCzFhxWUaKcZZHgWzhWOna1ZOslVB9KbUVhQ0Mv P8WfUZsiRO9WFAAoIKBtwFSpOAVnYADmAbT4WFZyUCqjIE2LtRFzDKdaXKCuFEAkYzAeALTfCBRgNENo QIOeGHHOLSLxGNKbSrEtTUVrUFIhWTsiUOCION4WGi BfY8KhuE59VIeZIm7+KEfmasZtNdpWEqGxZNUea6EsYKw6LT2HEDMxGhlcd2XrAQFfKYWZLPqiRY5JKW B9KGNsMZVpRt8CAHUoG363zlVtWJ8JCk2MUpJsOD5kry5KVFUxQCEdWzpVXge0VCitQM3VpAZaIPaVn5 7toHu5ycIowFAQkU4rTRjoKGarpKVqdWzrFBBfKPQl IB5lQnHtBqBcLIH1KUXiQW8eDChvLX0GTCC3WBudCWDfLTHvC0oUJbSlEMIoLkAtdSzqCE3DCvEwC1Ar unZkqGL1IZZmITYZGa4+PJodtjGvQsqZUsYgRMHbg1OuOYm8JF9AOSLiFUzdAO5BOQWugI5vXGicZH5Y KbRfDNWfVRJXCxZcS52ssXEiJTy6B8NeCrJwIOSwEg lsZXMgPDwvTmFtZXMgWyBdDQogID4+ID4+SFwwQR9HBQimhyWxIINlUe7MWGBfDZHjHA6xJPFaVMIjC4 C7bAitPEMEMlKvK5ultzryCM4dNKUtJ380rKehbuDpIGMcBORxHv9SARNxTQK9UAMytBIqFpumQCBSPW jwTO0JtCYeXRC7cM7pDSblEPMrOZVbL6cNFxQbbFbq MH49oActjlOdoRSiRLy+Xz9ETW7ni6LyDFt0isNcVIxgELYrNVaoMUBySXQjXOOrDHV6NMM9OLZCUjMb SAVtFLWmLOsxXQOeCPAbpn3IYQDmRTSdIAm8OjBfTPIiWYMhUOhkZFPsOVHiSfR9PMUdIUZkAG7MNiXb BFNcWINcBFanCROvYNFcha9FSNTcOTHzFsbjBLYeZC VzJQIjBTseSVDmKNXpVUHaJFVzSWGuNN2KZaLkRIHgHDOiTdUnCFTqRVRrdf6KJZAjKUYjLcFvGQSsQB CnFJFtGNxqNGGfZYZ6IPFyCVDgACGiEI7RLyLqGLSfDOorFHViHUDxWJEqjz5SOULpDUYvDug4FgWfRU CfOTRiNYkuXDWdOXQvXBepCVXiQGAzQJ0LDuScGOZj PQUqOsXdHHSxSPByvl3LJWLnWVJeSIV1XyJbXPEgPGUxAUngGJGqVQP4LeXcPHShCCCeDL4QWsYnAAYv KBm6VfqqKXPpDBYxeu8MNEIiMEPaFDMnWAZuJOXfRGDmAFpmWUBeVFY0MYG3KBCnCZVtZB3CGbLxWEGi EbS1AaewCDRwFJBgsa0ZSYIgUMSoYAw9NWWqALRoYT XpUCmsUSVtBXChWEK6LMCnXRBkBK6UIwQfOCGvQqRwDCSsENNvDFZtop4AOUFhAZSgUsUcCTVmCECqFZ VsZSvaWYLuLSIqFOi7KHXzWSDcQM5APqJyQUXzScK7KRImVWXpTWCfzk0YVEBhVCPnOpR6TtCdQLIqEN JbZGdnZNNzBZBbQUM3XDIxOOLtIU5PQhDxAORfAyI3 XRXwEJQdCLBzpn6CBHNpELXuOXNaCRHfCBRhRDXxSWroBKHkORF4NVh4FJIsTHZpBQ1UIsToUMEvSqXo BKnlXFGhOYJloy0JWVGcUCUvOzB6WoIaBPXbAIOiAFhkAMMxRFW0WVBbBEJiHOCeHS3VLwMdXUNxFgo7 HiunDFZcISCenb1EDCHfJEXhZSA3YeWgGJDrPRBnAW vkCICjHDZ8HZO2OCUlYHTvUQ0LVeKqYWMkNly3QIInCMAsIPZdva1IOHNoILEtVIo8TTGrPFTrBSJgWF gkBWUiLGY2Lzn2TPTeGSTyWM1ZAdYhNRUcFEU5OcdlMCJmKECvnb8XUGItHQN5VPp1ENQmGHKwTVHpLT dqNWWmJIHtSOqqTNZjGFGgVH3ZFeUqOTuyNBMBFvl6 WDsyF5z5ANN9Gp5JM4Cpd8TcENXkXZIKEXqkIJ9ajhZmWJNdAl5PL6cYCaiaQACiRvVqZBXtMPBgQsGu GMFaDVQcKZC5BzZ4ZDDmOj6yMPRzJJJ0VFXeARW3TqNeQoF0POQaCWU6LBpnPky9TNM0NeGrNC7PSc1Q CwO8QFR4gNOsMv8TYZNaSjEXGmNiOH7KUWm= ID Date Data Source [id number] 10/13/2019 10:24:10 AM EDT [facility] Name Value Range Interpretation Code Description Data Karoline rce(s) Supporting Document(s) Discharge Summary [facility] PYSMHj2gPcLCPzQe37/VMBwtMQOim6FxDCoiSJw2DTiqWJJlX4ExAOW4sY5bHYH9BJxXQzZwNpXqGBA1 lbm [file] AgICAgICAgICAgICAgICAgICAgICAgICAgICAgICAgICAgICAgICAgICAgICAgICAgICAgICAgICAgIC AgICAgICAgICAgICAgICAgICAgICAgICAgICAgICANCiAgICAgICAgICAgICAgICAgICAgICAgICAgIC AgICAgICAgICAgICAgICAgICAgICAgICAgICAgICAg ICAgICAgICAgICAgICAgICAgICAgICAgICAgICAgICAgICAgICAgICANCiAgICAgICAgICAgICAgICAg ICAgICAgICAgICAgICAgICAgICAgICAgICAgICAgICAgICAgICAgICAgICAgICAgICAgICAgICAgICAg ICAgICAgICAgICAgICAgICAgICAgICANCiAgICAgIC AgICAgICAgICAgICAgICAgICAgICAgICAgICAgICAgICAgICAgICAgICAgICAgICAgICAgICAgICAgIC AgICAgICAgICAgICAgICAgICAgICAgICAgICAgICAgICANCiAgICAgICAgICAgICAgICAgICAgICAgIC AgICAgICAgICAgICAgICAgICAgICAgICAgICAgICAg ICAgICAgICAgICAgICAgICAgICAgICAgICAgICAgICAgICAgICAgICAgICANCiAgICAgICAgICAgICAg ICAgICAgICAgICAgICAgICAgICAgICAgICAgICAgICAgICAgICAgICAgICAgICAgICAgICAgICAgICAg ICAgICAgICAgICAgICAgICAgICAgICAgICANCiAgIC AgICAgICAgICAgICAgICAgICAgICAgICAgICAgICAgICAgICAgICAgICAgICAgICAgICAgICAgICAgIC AgICAgICAgICAgICAgICAgICAgICAgICAgICAgICAgICAgICANCiAgICAgICAgICAgICAgICAgICAgIC AgICAgICAgICAgICAgICAgICAgICAgICAgICAgICAg ICAgICAgICAgICAgICAgICAgICAgICAgICAgICAgICAgICAgICAgICAgICAgICANCiAgICAgICAgICAg ICAgICAgICAgICAgICAgICAgICAgICAgICAgICAgICAgICAgICAgICAgICAgICAgICAgICAgICAgICAg ICAgICAgICAgICAgICAgICAgICAgICAgICAgICANCi AgICAgICAgICAgICAgICAgICAgICAgICAgICAgICAgICAgICAgICAgICAgICAgICAgICAgICAgICAgIC AgICAgICAgICAgICAgICAgICAgICAgICAgICAgICAgICAgICAgICANCjw/lPUdA1pfhFMmtrG8H9pvIb 7SHn6LFT3tu9WiZWUqTKicbsEhFesCWaKfAIRtIxmU Vlj9SRjfNZ8KpXNtT4KiU7JhUFbsWS3JKEJaQQMprBPjYDKrAGPcBbO2GQDdOIlbCA2WrKCpYYlvNNFo ONSsOtCwWSRkTATpZVIoTKIoRLBYEWWeYIJqUwPfPNjaWN1El7GwlBL4RNa+Sn2QTY5xl4XoXWssOXIm IF1zqn1GSYgFScZmE2IzsiC9ODRlQGIwFo3CRSOgBR IfjABlIlJtISRNVyLeV0FklD48FNJDGp3+ULnmdnKvDizPGsRqSUIpw6XbJVf7PK1GXXJwKEk1iMGfHH gvS4rrnfwzOZK0qM6oplstJrmgFHRbTT6xPTYtKcBZLBgsczkpHKPtWGEzHX35CyCjUuJeKKU4FwKxHW 6gXRblDX7NZMX0LNqbFSUeVOUcI5eERfMuTXIwUxDq jCqqVK7ABtDcM7PnwbCjeAPoMQLtOGNEGz0+AIklyqIxIdlFRqKwVIQdo4GgYFu0QT9CDDOyIIhdIG0F OEAnmJ2kSSnkQS3XUnZoCHFuCTVFFnDgX17koNZnJBi4E9BzFdKpKQUrLdtnECZtQYqiQoVaSVSsLyEb DQogID4+ID4+SHapWI9KQSejcvRqVDEgHt6TRXOlBW KuUY7aKFMxFYHiV6C1bRkrFHVRGrOfR8zeypykKB1kLSVbL424qOxkziQmYPNnNVSbEs6VXITpEUY5IB DfhPYaCyHzLHYNCAhaBD4IoVBySOT6rQ4sEStnKHJaNCXsE6eQXlTjcQgfCS88uUehrbAisINzHMr+Pg 5VOF5ep9AjFVe7kaCmMAynGBB3WEftEGAxCZSiFWLv TTZ1PJB2JEKXBwPqQZLwHIHvZDzxMAVrFTWlld0LYEHzTZUuNuX7NZEiWFPgBHRgPIrfKAWpUTIrBGV6 FOCsOTUgAL0RRaYyQRFhUTOrNYjgQYUyVHOsoi0YWDOiEHGkExu9ZGCdOZPlQCBpZNxkFYRvCFS9SJW4 XVUaOOBrIS5HIsXlAPMeLFxnEyWkIMBrOUHxvs7BUP XvXXHbUMSjPVRnLDWwGQTeNMrtBSLgIZMlWEE6YMQxHYBkJK4LFpToGGDfLYT9KMwlZHBaCTMwjs8MGT PjJQClKWKjKWZlQANbJLXyEMecPXCaKWF3NoX1CZUkFWBzXL9ONlQrIWQaLXRtUBIyRXQhVDIayn1WFC TyMBEwRCT7HAGnSMJfHPQnRJhgLKAgAEY9HxZ6ADKg RHGsOU6AVfWfCFRhKCN9BTVbMKElIUQvcb6ZGNNzVBZvUozdYWKcRTZrCSEmLIjrBWIuOXD7Ygp4EFXl BVWaSW0VSmQiDYVqHAp1QSewZUHuWQOvao0CFVQqWXOgZLI2SoXnZUQsQGEqHZztCLAhLBY5EFY7PTAw BWQvUV6IIeYgJLFkUWqlFWiuGUGhXJHsyu4BOCMcOC IrQPIhCyQmNXJnCURnSIplGQPeVACdRyw6XIUuFXVeET4PIbMyNEFcMtV1QZPzMRAkUOIhgn3BOIKtJO DkSPo6FgYrGSCoZXLhPHldAKLuFJNxDoF9ETSnIKYzKF8XAsBeKEBfEmK7GGPzJEUcBGWxgb0FXJBpVG AhRvYrHGQwBPJmKSZdSWpnIAXqZGJhBZc9FTZxZDVa WM9IClOuVJLnPuMfAMDyQWGoXCRrkg2ELQOtPCCqRHJuFVYlPOObZGOcAXwbSLYlDOG3Uxg2JRHtTLRb GL7QQdCjQDocPCRMJda1EPxcH0c5YUUxLS2QQ3Geh5RyJyJjKMOJJDgwBX0mdzBmHEBiKy8ZV4iPFjfb VUp7SMAxADFzHAQlRykwFoH0WOW8FrutXJF7EUYgZN 8qYRD3Otv8W5VuDqDlDMVtFvBhJppxFnqsHdL2GPtgVrUsBxXhHB7IGg0AGbO3EZD5sXItDp1PCaO4Fd WPWkNdVX4SIYh= ID Date Data Source [id number] 10/12/2019 05:49:40 PM EDT [facility] Name Value Range Interpretation Code Description Data Karoline rce(s) Supporting Document(s) Progress Note [facility] XRZDGu6fBgMGYnFw18/OOCgmHGHzc4NgWBwrGGo2CAhsULRaU3PrNHY0jL8tDZZ5CCzLQaWzRqHsHAI6 lbm [file] tOKJHYtGCkrxu6Mp1gf0tnwRSPJ6HuX8o7jW2gU9VqfuEvqapDQZAws/Rzrx1K1z2kcYleVe+OeCx/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 [file] FlMDRkZGJjZDliNDk+CM9oZPy+Zm5Mz4XqenI2mmTpOGnqKAMpSN2KTMLBL4OCPa== ID Date Data Source [id number] 10/12/2019 09:35:14 AM EDT [facility] Name Value Range Interpretation Code Description Data Karoline rce(s) Supporting Document(s) Consultation [facility] IMEEKh8xSvXHIwVh13/LKQoeKAKsc0GySKzbFJf7MYbuQCFgR9DdJJN0zD9iRIQ5VTuZPpIjEjGbUPG1 lbm [file] ICAgICAgICAgICAgICAgICAgICAgICAgICAgICAgIC RnTILaPBGgPANmNZVwZI8TRXOfJJVgPXTlWXKhTBRtDMTvKIEuMDDtPNDbCYAmKTEwEYRiTBEhNUVqCZ TnIMLtQJIcMLYmMMDwCJXiEKCxGDTqZUThFUGgFNXfCMEbEXUzMMUsYOOqNTOxKJAtISZqSYEmMH9ENO AgICAgICAgICAgICAgICAgICAgICAgICAgICAgICAg ICAgICAgICAgICAgICAgICAgICAgICAgICAgICAgICAgICAgICAgICAgICAgICAgICAgICAgICAgICAg PUYiTQAbIJ4KAMNjTLRvJJDfDWZoRRTjEVAxTHYlVVRfYNNqACOmRMXmQMQxCODgSHKgWXDnULZyODEb ICAgICAgICAgICAgICAgICAgICAgICAgICAgICAgIC VeFVClRDOvDJHhKSZnQHHkNG0ETMHbKMMlJVVbXSNnBANtYFJdODCmOLMtEBNeYFQsRNWkFPEcNULkAK AgICAgICAgICAgICAgICAgICAgICAgICAgICAgICAgICAgICAgICAgICAgICAgICAgICAgICAgICAgIA 0KICAgICAgICAgICAgICAgICAgICAgICAgICAgICAg ICAgICAgICAgICAgICAgICAgICAgICAgICAgICAgICAgICAgICAgICAgICAgICAgICAgICAgICAgICAg MVJeXCRsUTYiQZ8CODCmCXMtYUZyEKVzCUFiGZKcEFFmEABbPDKpWVIgGHDtKBFkNTAaMIPsFSAfRVXv ICAgICAgICAgICAgICAgICAgICAgICAgICAgICAgIC ReAEExXZBvYGLjBQQiANOpSMMzME5RPEQqVLAgEIEjDOEuCDTpROVwCIUnSDPxMLFxBYWrASGoFYAaLN AgICAgICAgICAgICAgICAgICAgICAgICAgICAgICAgICAgICAgICAgICAgICAgICAgICAgICAgICAgIC NrVX2PYEIbGPVcBQZqZJDaRAKjOFEjHJEuRSBzLYBt ICAgICAgICAgICAgICAgICAgICAgICAgICAgICAgICAgICAgICAgICAgICAgICAgICAgICAgICAgICAg GTZlJJXjIQIgFUTsBG3VYIShPLZwLQRpWEExLQKhNNCaZYNbCWTiVFVfIGZxOMRxCJTaZCUaMXOcPTCn ICAgICAgICAgICAgICAgICAgICAgICAgICAgICAgIC NjCIMjCCVeXIJpQKCqSIVcFOVtGBQdJG6GIC84vMMgq0B8QMIcBE5fxcm/Qx7TKJitvbDnvBXxNE1VXt LbRM3hvw2RViEbHJ9pgn2KJJbUCxYmT5I2yQQsKWEmIVAOHpRfA26aCPvrZy74EUaqXZMaWiKfKUo3Hv 0FKuIxD3gcPVFdUkF9BYKsDyMrRJlgZO7Am7OcxGOj DQo+Bd9TAJ0va6LdNSpmTSOlEB4azj2CKLqJOwIlZ7GdqbA0HVC7LVOcWc7MCYJeKBErlQJwOTDfVWSQ GtWkX3UonL78TFSFEg4+ZDyntnKlByaSOmT1GPWwy7RoZRc0WK3OXNFtNHz8gUMpD12zy8BnrSVcQpyk VKInrBCvcBNyVEYGc1OurIVvYLVTWPUVOXF3PVzbPm 5gMXDwRVB2CiTaVRZKHB2WUAYiOKKncFMiASByRTQSTW7JWNfrHCY7HSGziuFofUZhKGgmXN3SLHWtgc QgMTQgMCBSDQo+Lh8BBI1ab1CxLDqtVrQgGZ5ezy1ABGoAWzYyT3O6xXXnD6T4CSziMw9QPUQcKPCoXO DrWYFQVAdsXK9RXP3yqmZ8IX9ImTZlYHVzJFXtyAGv CSn4W27pfVKbHBrqDT3YROU+Greta+Bs2INAEyBDJkIIGxCfXnRTDROuGvX4DzH9IYb4NcM6OeJU06cNkm ijKeHAsfZK2DEE3kWWKaWROJUK0GdDEgiZ7obaXeGUWhNTZIWoIxU38tyGXgGMNvMSBtYHArPt6QLCNg L4CselUgdRryqnTvSCArPBWRLX5MCYwgitOknIQqzR wvZX60oValZJ7UIs9WSbLiQE8mye6NmJIxHz5MGFQxAj1FRCYiJGVyDKKsQOC8HIYhPqWqPSzvNBBgVT YiRDB5RYGfTWTdCI9YVvFxAFQjLWP2UptuGAFpZSFfmq3LVBJaBSRnCsT4BUNdNOEgQSPzSGuaVMZlRK LgFEU9LZJhCDExSD9CCtUfKVGtBDC6STslVBIpZQKp st5SSIClLLJpIyj2BwMuBPXtOXLyOHgaREOmEKIvFqLvYSMoDNSuUS1BHpDiLZLdNIG4GYxiAVWlDDSy yk9OITQfDXXsRHW6XjQqNIJbYTZyQYdvNOSjKYE9QET2JNYrFJKtAR3NHzVoLKDoCUBaEQdmRVVbXKIz gx5OCSYcJIZmLSK4QHWnAQRzIDRdZHpdAVPjMVY0BD Y8RGByVWQxUL4ZPaWbWMMlFHdxKWIuGAKkPNDbld3BXCGaQLPkVlU1NvQzQJEzEVUbQBcnEXOcWDW2BU X7VUDbRFHdJM9SWkEsFUzvWNXIUyr7ZAwcN9f0KRTrLz5EL2Fiu7XuDXBqDGOOHPbdEM6mziJvMYSiPf 7XG2vMMvm5LDxwXEN1TIuiRJKvVHOiR6KdUYE1UWlj UIF8AVU0PE6yEUegAEC0RdVtRUT5RMRiGAIjOSGhAAgzDKPpFSh5XoXpCoUlZV4HQl7VAqS5YDT0jKZy Sz4HOna8IO9WEYDEB6HZGx== ID Date Data Source [id number] 10/11/2019 09:51:51 PM EDT [facility] Name Value Range Interpretation Code Description Data Karoline rce(s) Supporting Document(s) [facility] TXFLPv9uXfLJQgFny3LmImTbRJDjST1bytg6O0R5cYQmU1QeqBUhz4ssN4VrV0JeYTNcKMHDZS0NdWRe jb2 [file] /f1JU7999i96y/xL8Iz7F1o2880w3gBg8BAUczboP9 f/5M03v/wkkjdfRD+U67D9st7/XhJ8/utv3v/b1Jwbyp8hxot4S0++/ea5s2912oQJ+3e/eebb63vmf/ PJ1d+8vLx8+Oqbj+/fw8969Xkhn9unv/3mix+N5XZl7/O20Xhr0cr0EhOEkLy/zdcvHz7/zcfPv/wbH7 iqmjYW34196tSngdu7+ns+dTtb5l3igvsQ+59/8fbl Zx/roll 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 cutter/x23njvdWFO//40xc1Us++/fD+b5rZquYgnC0Di7b7948/9e6rDy+/ePP1Z+8+++aLNx/yBD/+ x2jRdf/j+6/ef/2rt5+9+8W7z14+vvzLm1+/fXnzs/dfffjyzRevBvkb/3h7B/c/7k+0cP0nq2/jY/fq u8g12uaGf4bcDir1+cu/vPv4+f0PL1/94uWyc+1EPh X5+x+jElwE9k35+frdL9/fP/N1lC+fff7m/S/zsp4gl58+8bTnkb4Dm98+yv2fn/3pj//++z9//93vXv 7tv1++/Oqrf/r87Yd/wMy0Tf7+774a846v0qibBu47h4U34996+dMfX+ZP+0/kO64ARA10GuCakfdbvz /lT/eJ1b///qf/jD2lBm1c3ej1/a+F40T18I10/P8C pOmvF8d/sC4TZMdPYblK+vUXvL/3Pues0oUmh1gx6ufV0/yz3uN3xK9ezVNZdS/w4bt//+6Sik13jkqb Og9/8+b9y6/fvn/74ZuvfzBY+8F/HTP/1J91CPuVoX7ulcGjpjkNU+mdXN4S9JIYop+2vL079O//8g8v f/72L9/94Oyvz+fZ4Lsqv+y1KzzJEngs/fjsG/zVh5 ff//Ev3/35f3/7h79x+m3SH54+f/hlEqbHt74yz/7w9cvv/uv1t//+T3/00vde797VXx+neLB//vjTf/ 24H52jrNukTg9im13PSln6epdlXwo/8uSkaf7BqV1S89xMmq51y28jI676+OTjy7f/57v//Snm35sj6/ jkH7/51pK2Mn0kElu7yU4tJ//r3/3o0/tK/OK777/9 ww+u8foB/tm3//Xbb//z99/+3Bfy9Wez6/d//PH/P3eN+h/+7a//9zHjhz/01bfTg0spvKMurbdJS/32 085nT+N4IPlGpT/87rf/8cff//v8W8183zOYRf141/7rr97/6ONBNpIf/8+/gO4866011X/+47s///W3 hg8Tw/7qyy/fvv/39mo1hD1W7g//R+53YZ9S7Kv21n f/79gNxsoPp7/WW84kGjaEVo8eah5g2H5o/vzjpy/6ujjKCx+/X334+oaVo83Gf/BIILxn3bMDDwcn14 /o6enkgou9oz4/LA1FpwCGSF2an8BlCVGdCsQjWW4lcpnqXIKkME3obyk2N3NleHdmTGuHVWUwOn4npW UaQQ6BGAO0RBqjNKGgIKZhY0BnwC1aL73fzXMiIbVh UIKELV1QvfI4UTN3FIV3MVBdLuUvKYKpGI03CSXoTRBXNz1hnlBeYkrYDoUxSE3gtvl6U9L7rMEgU909 vYnfozWkIZ0Ww7QfuETrYX8UyNYdqRKqULAvGVQeO5oum1ZoHVyoFSHKFp1kkoClMpmOVlOwZV9fusr9 B3B9xJypogVeFIKSPBpnOlchAH6yeIiejgnhJ4OeeZ ObPWVrZ5MrIBPeg91SVGFlCAqCTkQmFuXmEFC4PoH7ZMcqWdTnWVWoSMEvWAYpNY8LvERfOOWwWYJSAY kgYmjdLZOmkM7osZNQu2EdG3aTUTXtNDhUFT2ZDFLmDRU7IUJ6VWRsC4KwbbCttJRdIXZOQXhtWbohZQ CnlT5cpWzrB2PlICF3o1PgZZ5JU5EcSUEsCPGTKJR2 g8RxEHPohtnztskcWuMrSQMuRDUiFYUmKH5Ptv5obVIfkyQxBNYFVZceOdnmMK4ztOfspvrjB9MrbPNv KSA+SeFySH8cbc2+HbIbQLCxVxj0IWEpTKprYYUsBYAnPUQlT1uaSESiGqIdMBGnXyQmAU4Ea6KusKDc Yl7zhrEhCkyLvSQsUegmMYBmOIRfSEHvExBCCKNdPC FfYKQbBKJ0YYJcYIEoSLxfVJEaXETkUPZoOKWdIKMtFQ5iGsCgQOQmWtKdYbHsLBXbGIDhgnAAEGRwHQ K5LuTxIQJtRLShQGDqCGyiKJOuINPzDZCqMNK5NJX3ZHElAtXnZCUbXDQdGYCkVTTdTNMuxuQVKJUzKR JyMLO1FTQgUFBeNZSrPJlhSHOvMJVzLOeaDHCdHIRh ZN2dHgGhORSyLVLvKBteCROeKGNbxhTYNZPkTMSkUBGpZDEmWOJqFKPkNZjfGMJnHVKqKYGqGUBxADRk UL7jKeQmNIXoFEN8CSBmMCKpXVErznSEOPTdDGPsIGw1NRCdAOBrKQJxDHnwETPhGACaIQC6ZHPyZYOx IP5hJuBbZPBqOGC8XcHnUUHlHKEkbmRDKMHgEEPeAM C1TvMxZWHcMTZdLEasYGKgTFHxZQuoCFElIOGhCS3mJlAhWCFpZUPdADlxUWHuTEFuasWWXRFuCAPoUW SfJcOqBBOtTSIuWRphOUEvRHXyAPF7WLKpAPNfJQ2yJzPhVQXlPKQ0EEmjCEAwIKKcctBTKWWpNOGcEW urHQGiVWWpTNAwFKnkLLXmTQLrUOZ4BAJtBFYsLV0j KdRbGODhTZOeBQInWnQ0ZgXiNzVKwKRgsFayzrb8UNmbT0c8CJFnNEhuBX4hchBoUDYiMrivQk8xxKN2 DUExMbcADz0Vt2UpyhF6jfEqQmHtSFQ4DzChYA6B ID Date Data Source [id number] 10/11/2019 12:52:26 PM EDT [facility] Name Value Range Interpretation Code Description Data Karoline rce(s) Supporting Document(s) Prothrombin time (PT) 12.6 s 12.5-14.9 [facility] INR in Platelet poor plasma by Coagulation assay 0.94 [facility] Routine intensity oral anticoagulation I NR is typically 2.0-3.0. Target INR must be clinically individualized. ID Date Data Source [id number] 10/11/2019 12:52:26 PM EDT [facility] Name Value Range Interpretation Code Description Data Karoline rce(s) Supporting Document(s) aPTT in Platelet poor plasma by Coagulation assay 27.5 s 24.0-33. 0 [facility] ID Date Data Source [id number] 10/08/2019 03:07:00 AM EDT [facility] 1 OrderSheet [facility] Emergency Department [address] [place] [address] Phone #: ext- [phone] 10/08/2019 03:07 Patient: TREMAINE CAVAZOS Sex: F : 1965 Age: 54yWEIGHT:102.0 kg (M) HEIGHT:68 inches (S) BMI:34.2ALLERGIES: LatexCHIEF COMPLAINT: seizure, [id number]: Intracranial space-occupying lesion, Seizure, HypokalemiaLAB ORDERSOrder Description Priority Entered Acknowledged InitialedUrinalysis (Clean STAT 03:15 10/08/2019Catch) Jordan Ch Physician;Troponin-T STAT 03:15 10/08/2019 03:41 Jordan Lo R.N. Physician;CMP STAT 03:15 10/08/2019 03:41 Jordan Lo R.N. Physician;CBC w Diff STAT 03:15 10/08/2019 03:41 Jordan Lo R.N. Physician;Blood Culture STAT 03:15 10/08/2019 06:01 Wallyq10m X2 (Sched Jordan Hernandez R.N.03:15 10/08/2019) Physician;Blood Culture STAT 03:15 10/08/2019 06:01 Wally,q10m X2 (Sched Jordan Hernandez R.NJeferson03:25 10/08/2019) Physician;Lipase STAT 03:15 10/08/2019 03:41 Jordan Lo R.N. Physician;Lactic Acid STAT 03:15 10/08/2019 03:41 Jordan Lo R.N. Physician;DIAGNOSTIC STUDY ORDERSOrder Description Priority Entered Acknowledged InitialedCT Head W/O Cont STAT 03:15 10/08/2019 05:44 Wally(Oxygen?(No)) Jordan Hernandez R.N. Physician; NOTES: Seizures 2 OrderSheet [facility] Emergency Department [address] [place] [address] Phone #: ext- [phone] 10/08/2019 03:07 Patient: TREMAINE CAVAZOS Sex: F : 1965 Age: 54y Reason for Study: Altered Mental Status, SyncopeMEDICATION/IV/DRIP/FLUID ORDERSOrder Description Priority Entered Acknowledged InitialedIV NS : Bolus 500 03:16 10/08/2019 04:00 Wally,mL, then 125 mL/hr Jordan Hernandez R.N.(can be titrated per Physician;additionalphysic ianinstruction)Zofran 4 mg IVP X 1 03:16 10/08/2019 03:54 Wally,dose: 4 mg (NOW Jordan Hernandez R.N.x1) Physician;Phenytoin 03:20 10/08/2019 04:21 Wally(1000mg/100mL) Jordan Hernandez R.N.IVPB 1000 mg with Physician;Saline Solution 100mL (Dilute in NSONLY -MINIMUM Conc.= 5 mg/mL,Maximum rate 50mg/min - Use anin-line 0.22 to 0.55micron filter )Ativan IVP 2 mg 03:26 10/08/2019 03:55 Wally,(HIGH ALERT Jordan Hernandez R.N.MEDICATION, Physician;NOW)KCl IVPB 10 04:16 10/08/2019 06:01 Wallymeq/100mL Jordan Hernandez R.N. Physician;SOLU- Medrol 125 06:00 10/08/2019 06:02 Wally,mg IV X1 Dose: 125 Jordan Hernandez R.N.mg (X1) Physician; Reason for ordering with alerts: Benefits outweigh risks -- 06:00 10/08/2019 Jordan Ch PhysicianGENERAL ORDERSOrder Description Priority Entered Acknowledged InitialedCardiac Monitor 03:16 10/08/2019 03:23 Wally(continuous) Jordan Hernandez R.N. Physician; 3 OrderSheet [facility] Emergency Department [address] [place] [address] Phone #: orr- [phone] 10/08/2019 03:07 Patient: TREMAINE CAVAZOS RN: [id number] Sex: F : 1965 Age: 54yEKG 03:16 10/08/2019 05:44 Jordan Lo R.N. Physician;Pulse oximeter 03:16 10/08/2019 03:23 Wally(Continuous) Jordan Hernandez R.N. Physician;Saline Lock 03:16 10/08/2019 03:24 Jordan Lo R.N. Physician;[Electronically signed by David Lo R.N. (07:15 10/08/2019)][Electronically signed by Jordan Ch (09:22 10/11/2019)][Electronically locked by David Lo R.N. (07:15 10/08/2019)] Name Value Range Interpretation Code Description Data Karoline rce(s) Supporting Document(s) ID Date Data Source [id number] 10/08/2019 03:07:00 AM EDT [facility] 1 Medication Reconciliation Report [facility] Emergency Department [address] [place] [address] Phone #: ext- [phone] 10/08/2019 03:07 Patient: TREMAINE CAVAZOS Sex: F : 1965 Age: 54yWeight: 102.0 kgHeight/Length: 68 in.BMI: 34.2ALLERGIES: LatexThe patient's Home Medications are listed below:THE FOLLOWING MEDICATIONS NEED TO BE RECONCILED: Dexamethasone 4mg po twice daily Levetiracetam 500mg potwice daily [id number] twice dailyThe source(s) of the original Home Medication information:patient's family memberThe following Medications were given to the patient in the Emergency Department:Zofran [IVP] IVP 4 mg, administered: 10/08/2019 3:54:00 AMAtivan [IVP] IVP 2 mg, administered: 10/08/2019 3:55:00 AMIV NS IV Fluids bolus 1000 mL over 1 hour(s), then 125 mL/hr, administered: 10/08/2019 4:00:00 AMPHENYTOIN (1000MG/100ML) [IVPB] IVPB bolus 0, then 1000 mg 200 mL/hr, administered: 10/08/20194:10:00 AMKCL [IVPB] IVPB bolus 0, then 10 meq 100 mL/hr, administered: 10/08/2019 6:01:00 AMSolu-Medrol [IVP] IVP 125 mg, administered: 10/08/2019 6:02:00 AMThe following Medications were prescribed to the patient:None. Name Value Range Interpretation Code Description Data Karoline rce(s) Supporting Document(s) ID Date Data Source [id number] 10/08/2019 03:07:00 AM EDT [facility] 1 Medication Administration Record [facility] Emergency Department [address] [place] [address] Phone #: ext- [phone] 10/08/2019 03:07 Patient: TREMAINE CAVAZOS Sex: F : 1965 Age: 54yWeight: 102.0 kgHeight/Length: 68 inBMI: 34.2ALLERGIES: Latex Date/Time Medication Administered Medication OrderedStart IV NS IV NS : Bolus 500 mL, then 66197:00 10/08/2019 Dose: IV Fluids mL/hr (can be titrated David Zavala R.N. Rate: 125 mL/hr over 4 hour(s) additional physician instruction)---- Bolus: 1000 mL over 1 hour(s)Stop Dispensed: 500 mL bag07:12 10/08/2019 Site: #1 left David Pena R.N.Given ZOFRAN [IVP] (ONDANSETRON HCL) Zofran 4 mg IVP X 1 dose: 4 mg03:54 080 05/2019 Dose: 4 mg IVP (NOW x1)David Lo R.N. Site: #1 left ACStart PHENYTOIN (1000MG/100ML) [IVPB] Phenytoin (1000mg/100mL) IVPB04:10 10/08/2019 Dose: 1000 mg IVPB 1000 mg with Saline Solution 100David Lo R.N. Rate: 200 mL/hr over 30 minute(s) mL (Dilute in NS ONLY ----- Dispensed: 100 mL bag MINIMUM Conc. = 5 mg/mL,Stop Site: #1 left AC Maximum rate 50 mg/min - Use an05:00 10/08/2019 in-line 0.22 to 0.55 micron filter )David Lo R.N.Given ATIVAN [IVP] (LORAZEPAM) Ativan IVP 2 mg (HIGH ALERT03:55 10/08/2019 Dose: 2 mg IVP MEDICATION, NOW)David Lo R.N. Site: #1 left ACStart KCL [IVPB] KCl IVPB 10 meq/012uK95:01 10/08/2019 Dose: 10 meq IVPBDavid Lo R.N. Rate: 100 mL/hr over 1 hour(s)---- Dispensed: 100 mL bagStop Site: #1 left AC07:13 10/08/2019David Lo R.N.Given SOLU-MEDROL [IVP] SOLU-Medrol 125 mg IV X1 Dose:06:02 10/08/2019 (METHYLPREDNISOLONE SODIUM 125 mg (X1)David Lo R.N. SUCC) Dose: 125 mg IVP Site: #1 left AC Name Value Range Interpretation Code Description Data Karoline rce(s) Supporting Document(s) ID Date Data Source [id number] 10/08/2019 03:07:00 AM EDT [facility] 1 General Instructions [facility] Emergency Department [address] [place] [address] Phone #: ext- [phone] 10/08/2019 03:07 Patient: TREMAINE CAVAZOS Sex: F : 1965 Age: 54yGeneralized seizure associated with sub-therapeutic anticonvulsant levels and illness. 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 No history ofidiopathic etiology epilepsy.Intracranial mass (R frontal mass 3.5 x 3.6cm).Hypokalemia. ADDITIONAL INFORMATIONBrain TumorYour body is constantly growing new cells to replace older ones. A tumor occurs when cells begin togrow abnormally and without control. Tumors can be cancerous (malignant) or not non-cancerous(benign). A benign tumor will stay where it is and tends to grow slowly. A malignant tumor can growinto nearby tissues and tends to grow faster. Most types of malignant tumors can also spread(metastasize) to other parts of the body, although tumors that start in the brain rarely metastasize.A primary brain tumor is one that first appears in the brain. This may be benign or malignant.A metastatic (secondary) brain tumor results from a cancer that starts elsewhere in the body andthen spreads to the brain. Either type of brain tumor can damage brain cells directly. Or the tumor canharm brain cells when it presses on brain tissue as it grows. Because of this, any type of brain tumor 2 General Instructions [facility] Emergency Department [address] [place] [address] Phone #: ext- [phone] 10/08/2019 03:07 Patient: TREMAINE CAVAZOS Sex: F : 1965 Age: 54ycan be dangerous, as it can grow large enough to affect other sensitive parts of the brain.Healthcare providers don't know what causes primary brain tumors.The most common brain tumors are gliomas and meningiomas. Most gliomas are cancerous, ormalignant. Most meningiomas are benign. But meningiomas still may cause severe complications,depending on how big they are and where they are in the brain.The first tests used to diagnose a brain tumor often include a CT scan and/or an MRI scan of thebrain. Sometimes a sample of tumor tissue (biopsy) is needed. The sample is taken during surgery.Most brain tumors should be treated right away. Surgery is needed to treat most primary braintumors. Some tumors respond to radiation therapy. Your healthcare provider may recommendradiation therapy in addition to, or instead of, surgery. You may also need chemotherapy or othertypes of medicines.A brain tumor may cause seizures. If this happens, your healthcare provider can give you medicine tohelp prevent another seizure.Home careYou can go back to your normal activities as you feel up to it. But if you had a seizure or fainted, youshould not drive, take baths alone, or swim until your healthcare provider says it's safe for you to doso. Take any seizure medicine as directed to help prevent another episode.If you have headache or nausea, use the medicines provided.Follow-up careFollow up with your healthcare provider, or as advised.When to seek medical adviceCall your healthcare provider right away if any of these occur: New seizures or seizures that keep happening Repeated vomiting You feel less alert or it's difficult to wake you up New changes to your vision, speech, or hearing Weakness on one side of your body or loss of coordination and balance Severe headache Confusion 3 General Instructions [facility] Emergency Department [address] [place] [address] Phone #: ext- [phone] 10/08/2019 03:07 Patient: TREMAINE CAVAZOS Sex: F : 1965 Age: 54y Difficulty thinking, speaking, or getting your words out [phone] [employer] [place] [address]. All rights reserved. This information is not intended as asubstitute for professional medical care. Always follow your healthcare professional's instructions. You have been given the following additional information: Brain Tumor(Electronically signed by Jordan Ch, Physician 10/11/2019 09:22) Name Value Range Interpretation Code Description Data Karoline rce(s) Supporting Document(s) ID Date Data Source [id number] 10/08/2019 03:07:00 AM EDT [facility] 1 Clinical Report - Nurses [facility] Emergency Department [address] [place] [address] Phone #: [phone]- [phone] 10/08/2019 03:07 Patient: TREMAINE CAVAZOS Sex: F : 1965 Age: 54yTRIAGEArrived by EMS. Historian: family. 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 Sepsis Screen negative. No suspected or confirmed signs ofinfection present.KULWINDER COMA SCORE: 3- eyes open- none (1); best verbal response- none (1); best motor response-none (1). --03:10/08/19 David Lo R.N.03:12 10/08/19. BP: 133/100. MAP: 111. HR: 79. RR: 26. O2 saturation: 98%. Temp: 97.9 F. Pain levelnow: 0/10. --03:10/08/19 David Lo R.N.Weight: 102 kg measured. Height/Length: 68 inches Per Patient. BMI: 34.2. --03:10/08/19 David Lo R.N.LwivpthkpxcNchfccheiw105uw twice daily. --03:10/08/19 David Lo R.N. Dexamethasone 4mg po twice daily. --03:10/08/19 David Lo R.N. Levetiracetam 500mg potwice daily. --03:10/08/19 David Lo R.N.AllergiesLatex. --03:14 10/08/19 David Lo R.N.PROBLEMS:Seizure.Migraine Headache.Cancer. --03:10/08/19 David Lo R.N.Medication/allergy information source: the patient's family. --03:10/08/19 David Lo R.N.ADDITIONAL SURGERIES:Brain sx. --03:15 10/08/19 David Lo R.N. 2 Clinical Report - Nurses [facility] Emergency Department [address] [place], [place] [id number] Phone #: [phone] 10/08/2019 03:07 Patient: TREMAINE CAVAZOS Sex: F : 1965 Age: 54y Hysterectomy. --03:17 10/08/19 David Lo R.N. History PAST MEDICAL HX: Immunizations: up-to-date. No menstrual periods. The patient is post-menopausal. Has had a hysterectomy. SOCIAL HX: Never smoker. She has not traveled outside the [place] Infectious disease exposure: The patient was not exposed to chicken pox, measles, mumps, meningitis, staph, strep, mono, C-diff, MRSA, VRE, CRE, influenza, Armin flu, H1N1 flu, Hepatitis A, B and C, Coronavirus, MERS, SARS, tuberculosis, Ebola, HIV, Typhoid or Zika. SELF HARM ASSESSMENT: Self harm assessment deferred due to patient condition. ABUSE ASSESSMENT: Abuse assessment. Abuse denied. No suspicion of abuse. NUTRITIONAL RISK ASSESSMENT: The nutritional risk assessment revealed no deficiencies. FUNCTIONAL ASSESSMENT: Functional assessment: no impairments noted. LEARNING NEEDS ASSESSMENT: The learning needs assessment revealed no barriers. FALL RISK ASSESSMENT: Fall risk assessment completed. Risk factors identified include weakness and patient impairment of cognition. SKIN INTEGRITY ASSESSMENT: Skin integrity risk assessment completed. No skin integrity risk identified. --03:10/08/19 David Lo R.N. Assessment The patient states feels the same. --03:23 10/08/19 David Lo R.N. Interventions Identification band on patient. --03:10/08/19 David Lo R.N.NURSING PROGRESS NOTES03:26 10/08/2019 Site #2 started via IV forearm with an 22g angiocath, with aseptic technique. Saline lockflushed with 10 mL saline. --03:51 10/08/19 Leatha Mijares R.N. 03:40 10/08/2019 Site #1 started via IV in the left antecubital space with an 18g angiocath, with aseptic technique and good blood return; one attempt. Blood drawn: rainbow set and green tube(s). Saline lock flushed with 10 mL saline. --03:40 10/08/19 David Lo R.N. 03:54 10/08/2019 Zofran (Ondansetron HCl) IVP 4 mg given over 2 minute(s) via site #1. Allergies verified and confirmed 5 rights. IV patency established. IV site checked: no pain, redness, or swelling. IV flushed thoroughly pre- and post-medication administration. IVP given by RN. Information reviewed with patient including reason for taking this medication, signs of allergic reaction and precautions. Verbalizes 3 Clinical Report - Nurses [facility] Emergency Department [address] [place] [address] Phone #: [phone] 10/08/2019 03:07 Patient: TREMAINE CAVAZOS Sex: F : 1965 Age: 54yunderstanding. --03:54 10/08/19 David Lo R.N.03:55 10/08/2019 Ativan (LORazepam) IVP 2 mg given over 2 minute(s) via site #1. Allergies verified andconfirmed 5 rights. IV patency established. IV site checked: no pain, redness, or swelling. IV flushedthoroughly pre- and post-medication administration. IVP given by RN. Information reviewed with patientincluding reason for taking this medication, signs of allergic reaction, precautions and sedative warning.Verbalizes understanding. --03:55 10/08/19 David Lo R.N.04:00 10/08/2019 Started bag #1 500 mL IV Fluids IV NS; bolus of 1000 mL over 1 hour(s) then at 125mL/hr over 4 hour(s) via site #1 via IV pump. Allergie s verified and confirmed 5 rights. IV patencyestablished. IV site checked: no pain, redness, or swelling. IV flushed thoroughly pre- and post- medicationadministration. Information reviewed with patient including reason for taking this medication, signs ofallergic reaction and precautions. Verbalizes understanding. --04:00 10/08/19 David Lo R.N.04:10 10/08/2019 Started 1000 mg of PHENYTOIN (1000MG/100ML) IVPB in bag #1 100 mL; at 200mL/hr over 30 minute(s) via site #1. via IV pump. Allergies verified and confirmed 5 rights. IV patencyestablished. IV site checked: no pain, redness, or swelling. IV flushed thoroughly pre- and post-medicationadministration. Information reviewed with patient including reason for taking this medication, signs ofallergic reaction and precautions. Verbalizes understanding. --04:21 10/08/19 David Lo R.N.Reassessment acuity: LEVEL 3. The patient reports no complaints, she is calm, resting quietly andsleeping and she has had no adverse reaction. Overall patient status is improved- she states feels better.GENERAL / NEURO / PSYCH: Alert. Oriented X 4. Patient appears calm and cooperative.RESPIRATORY: No respiratory distress.SKIN: Skin is warm and dry. Call light placed in reach. Side rails up x 2. Bed placed in lowest position.Brakes of bed on. --05:46 10/08/19 David Lo R.N.05:44 10/08/19. BP: 112/86. MAP: 94. HR: 74. RR: 24. O2 saturation: 99%. Temp: 98 F. Pain level now:0/10. --05:46 10/08/19 David Lo R.N.06:01 10/08/2019 Started 10 meq of KCL IVPB in bag #1 100 mL; at 100 mL/hr over 1 hour(s) via site #1.via IV pump. Allergies verified and confirmed 5 rights. IV patency established. IV site checked: no pain,redness, or swelling. IV flushed thoroughly pre- and post-medication administration. Information reviewedwith patient and family including reason for taking this medication, signs of allergic reaction andprecautions. Verbalizes understanding. --06:01 10/08/19 David Lo R.N.06:02 10/08/2019 Solu-Medrol (methylPREDNISolone Sodium Succ) IVP 125 mg given over 2 minute(s)via site #1. Allergies verified and confirmed 5 rights. IV patency established. IV site checked: no pain,redness, or swelling. IV flushed thoroughly pre- and post-medication a dministration. IVP given by RN.Information reviewed with patient including reason for taking this medication, signs of allergic reaction andprecautions. Verbalizes understanding. --06:02 10/08/19 David Lo R.N.Reassessment acuity: LEVEL 3. The patient is calm, resting quietly and sleeping and has had no adversereaction. Overall patient status is improved. 4 Clinical Report - Nurses [facility] Emergency Department [address] [place] [address] Phone #: ext- [phone] 10/08/2019 03:07 Patient: TREMAINE CAVAZOS Sex: F : 1965 Age: 54y GENERAL / NEURO / PSYCH: Alert. Oriented X 4. Patient appears calm and cooperative. No weakness or numbness. RESPIRATORY: No respiratory distress. SKIN: Skin is warm and dry. Two patient identifiers checked. Call light placed in reach. Side rails up x 2. Bed placed in lowest position. Brakes of bed on. --06:15 10/08/19 David Lo R.N. 06:13 10/08/19. BP: 119/79. MAP: 92. HR: 68. RR: 24. O2 saturation: 97%. Temp: 98.2 F. Pain level now: 0/10. --06:15 10/08/19 David Lo R.N.DISPOSITION / DISCHARGE Transferred to [facility]. Visit overview, summary of care (CCDA), Emtala forms and Face Sheet provided to transport team and transfer facility. Transported via ambulance by early childhood education instructor with monitor. Report was given to a nurse. Report included patient's care, condition, vital signs, labs, medications and IV's. All questions were answered. Report was acknowledged and care was transferred. (Madelaine VELASQUEZ at [facility]). Patient has no belongings. --06:28 10/08/19 David Lo R.N. 06:28 10/08/19. BP: 106/86. MAP: 92. HR: 72. RR: 22. O2 saturation: 98%. Temp: 98.2 F. Pain level now: 0/10. --06:29 10/08/19 David Lo R.N. 05:00 10/08/2019 PHENYTOIN (1000MG/100ML) IVPB via IV site #1 Discontinued: completed. Total amount infused: 100 mL. IV patency established. IV site checked: no pain, redness, or swelling. IV flushed thoroughly. --07:13 10/08/19 David Lo R.N. 07:12 10/08/2019 IV Fluids IV NS via IV site #1 Discontinued: upon transfer. Total amount infused: 1000 mL. IV patency established. IV site checked: no pain, redness, or swelling. IV flushed thoroughly. --07:12 10/08/19 David Lo R.N. 07:13 10/08/2019 KCL IVPB via IV site #1 Discontinued: upon transfer. Total amount infused: 100 mL. IV patency established. IV site checked: no pain, redness, or swelling. IV flushed thoroughly. --07:13 10/08/19 David Lo R.N. Departure time: 07:14 10/08/2019. --07:14 10/08/19 David Lo R.N.Lock ed/Released at 10/08/2019 07:15 by David Lo R.N. Name Value Range Interpretation Code Description Data Karoline rce(s) Supporting Document(s) ID Date Data Source [id number] 0001 10/08/2019 03:07:00 AM EDT [facility] 1 Clinical Report - Physicians/Mid Levels [facility] Emergency Department [address] [place] [address] Phone #: ext- [phone] 10/08/2019 03:07 [id number] Sex[facility] F : 1965 Age: 54y Time Seen: 03:04 10/08/2019. Arrived- By ambulance. Historian- EMS personnel. Disposition decision: 06:01 10/08/2019.HISTORY OF PRESENT ILLNESS Chief Complaint: TWO SEIZURES. This occurred just prior to arrival and today. The patient recovered at the scene. Post-ictal in the emergency department. Patient was witnessed to be last known well. Seizure was witnessed. Experienced repeated seizures. Seizure activity was brief. Generalized motor activity obser uriel. No focal motor activity, incontinence, numbness post-ictally or headache post-ictally. Post-ictally has been obtunded and had confusion, speech difficulty and generalized weakness. No injuries noted. Did not recently change anticonvulsant medication or miss recent dose of anticonvulsant. Has not recently been ill. No recent sleep deprivation or alcohol recently. Similar symptoms previously. Patient has had similar symptoms several times, occasionally. Recent medical care: Not recently seen/assessed.REVIEW OF SYSTEMSNo fever, chest pain, palpitations, cough or difficulty breathing. No eye irritation, sore throat, abdominalpain, nausea or diarrhea. No black stools, difficulty with urination, skin rash, enlarged lymph nodes orvomiting. No bloody stools or joint pain.PAST HISTORYPast history not negative. See nurses notes. Neurological disease. ( Seizure disorderBrain tumorMigraines). Surgeries: (Brain surgery).SOCIAL HISTORYNever smoker. No alcohol use or drug use. No recent travel.ADDITIONAL NOTESThe nursing notes have been reviewed with agreement regarding the chief complaint, HPI, ROS, PMH andpatient medications and allergies.PHYSICAL EXAMVital Signs: 10/08/2019 03:12 BP: 133/100. MAP: 111. HR: 79. RR: 26. O2 saturation: 98%. Temp: 97.9F. Pain level now: 0/10. Have been reviewed and appear to be correct. Hypertensive. Heart ratenormal. Tachypneic. Temperature normal. Oxygen saturation normal. 2 Clinical Report - Physicians/Mid Levels [facility] Emergency Department [address] [place] [address] Phone #: ext- [phone] 10/08/2019 03:07 Patient: TREMAINE CAVAZOS Sex: F : 1965 Age: 54y Appearance: Anxious. Appears post-ictal. Patient in moderate distress. Not alert. In distress. (Non-verbal, lethargic). Eyes: Pupils not equal, round and reactive to light. Nystagmus. Extraocular movements not normal. ENT: ENT inspection not normal. Mucous membranes not moist. Pharynx abnormal. Dry mucous membranes present. Neck: Normal inspection. Neck supple. CVS: Normal heart rate and rhythm. Heart sounds normal. Pulses normal. Respiratory: No respiratory distress. Painless inspiration. Breath sounds normal. Abdomen: Soft and nontender. No organomegaly. Obese. Back: Normal inspection. Skin: Skin warm and dry. Abnormal skin color. No rash. Normal skin turgor. Pallor. Neuro: Not alert. Disoriented. Abnormal mood/affect or speech. Cranial nerves abnormal. Cerebellar findings present. Motor deficit noted. Sensory deficit noted.LABS, X- RAYS, AND EKGLaboratory Tests: Laboratory tests have been ordered, with results reviewed and considered in themedical decision making process. EKG: (LEONARD: 10/08/2019 03:16) ( MsgRcvd 10/08/2019 19:22) Final results Test Result Flag Units (Reference) [place] [address] -- -- RESPIRATORY CARE REPORT -- ===== ---------NAME------- NUMBER SEX AGE ADMIT DISC. XRAY# F/C TYPE MACY Brown [id number] F 54 10/08/19 10/08/19 [id number] XBE E/R DATE OF : 1965 M/R# [id number] PH#: [phone] TR-06 -- LOCATION: EKG 88390 COMPLETE:10/08/19 07:37 EWW [id number] PHYSICIAN: YOSELIN WEIR Urinalysis: (LEONARD: 10/08/2019 03:15) ( MsgRcvd 10/08/2019 13:06) Canceled SOURCE: Clean Catch Troponin-T: (LEONARD: 10/08/2019 03:40) ( MsgRcvd 10/08/2019 04:14) Final results Test Result Flag Units (Reference) TROPONIN T <0.01 NG/ML (0.00 - 0.10) TROPONIN T0.1 ng/ml Recommended as the clinical threshold value forTroponin T. CMP: (LEONARD: 10/08/2019 03:40) ( MsgRcvd 10/08/2019 04:16) Correction to results Test Result Flag Units (Reference) COMPREHENSIVE METABOLIC PANEL COMPREHENSIVE METABOLIC PANEL SODIUM 141 mEq/L (134 - 153) 3 Clinical Report - Physicians/Mid Levels [facility] Emergency Department [address] [place] [address] Phone #: ext- [phone] 10/08/2019 03:07 Patient: TREMAINE CAVAZOS Sex: F : 1965 Age: 54y POTASSIUM 2.7 LL mEq/L (3.6 - 5.0) CALL/ READ BACK DR CH BY: LSA DATE/TIME 414 AM CHLORIDE 99 mEq/L (98 - 107) CO2 30 MEQ/L (22 - 30) GLUCOSE 88 MG/DL (65 - 110) BUN 11 MG/DL (7 - 21) CREATININE 0.7 MG/DL (0.7 - 1.5) BUN/CREAT 16 (8 - 27) TOTAL PROTEIN 5.4 L G/DL (6.3 - 8.2) ALBUMIN 3.8 L G/DL (3.9 - 5.0) GLOBULIN 1.6 L GM/DL (2.4 - 3.2) A/G RATIO 2.4 H (0.8 - 2.0) CALCIUM 9.4 MG/DL (8.4 - 10.2) TOTAL BILI <0.7 MG/DL (0.2 - 1.3) ALKALINE PHOS 68 U/L (38 - 126) SGOT/AST 17 U/L (5 - 40) SGPT/ALT 19 U/L (7 - 56) ANION GAP 12.0 mmol/L (8.0 - 16.0) AGE 54 yrs NON-AA GFR >60 mL/min AFR AMER GFR >60 mL/min Male GFR Interprentation 20-49 yrs >60 mL/min Bsncli15-08 yrs >56 mL/min Normal 60-69 yrs >49 mL/min Normal 70-79yrs>42 mL/min Normal 80 and above >35 mL/min Normal Female GFRInterpretation 20-39 yrs >60 mL/min Normal 40-49 yrs >58 mL/minNormal 50-59 yrs >51 mL/min Normal 60-69 yrs >45 mL/min Uyotke11-97 yrs >39 mL/min Normal 80 and above >32 mL/min NormalCBC w Diff: (LEONARD: 10/08/2019 03:40) ( MsgRcvd 10/08/2019 03:48) Final results Test Result Flag Units (Reference) CBC W/AUTOMATED DIFF COMPLETE BLOOD COUNT WBC 12.1 H 10/uL (4.2 - 11.0) RBC 3.91 L 10/uL (4.20 - 5.40) HEMOGLOBIN 11.9 L g/dL (12.0 - 16.0) HEMATOCRIT 35.6 L % (37.0 - 47.0) MCV 91.0 fL (81.0 - 101) MCH 30.4 pg (27.0 - 34.0) MCHC 33.4 g/dL (31.0 - 36.0) RDW 13.9 % (11.5 - 14.5) PLATELETS 196 10/uL (150 - 450) MPV 9.3 fL (7.4 - 10.4) NEUT 73.0 % (37.0 - 80.0) LYMPH 18.5 L % (25.0 - 40.0) MONO 5.3 % (3.0 - 8.0) EOS 0.2 % (0.0 - 7.0) BASO 0.4 % (0.0 - 2.5) %IG 2.6 H % (0.0 - 0.0) %NRBC 0.0 % (0.0 - 0.0) #NEUT 8.83 H 10/uL (2.00 - 6.90) #LYMPH 2.23 10/uL (0.60 - 3.40) #MONO 0.64 10/uL (0.00 - 0.90) #EOS 0.02 10/uL (0.00 - 0.70) #BASO 0.05 10/uL (0.00 - 0.20) #IG 0.31 H 10/uL (0.00 - 0.10) #NRBC 0.00 10/uL (0.00 - 0.00) MANUAL DIFF NOT INDICATED 4 Clinical Report - Physicians/Mid Levels [facility] Emergency Department [address] [place] [address] Phone #: ext- [phone] 10/08/2019 03:07 Patient: TREMAINE CAVAZOS Sex: F : 1965 Age: 54y RBC MORPH NOT INDICATEDLipase: (LEONARD: 10/08/2019 03:40) ( MsgRcvd 10/08/2019 04:16) Final results Test Result Flag Units (Reference) LIPASE 46 U/L (13 - 60)Lactic Acid: (LEONARD: 10/08/2019 03:40) ( MsgRcvd 10/08/2019 03:51) Final results Test Result Flag Units (Reference) LACTIC ACID 4.1 HH MMOL/L (0.2 - 2.2) CALL/ READ BACK DR CH BY: LSA DATE/TIME [id number] AMCT Head W/O Cont: (LEONARD: 10/08/2019 03:15) ( MsgRcvd 10/08/2019 05:30) Final results Exam CT HEAD W/O CONTRAST [facility] [address] [place] [address] ---------NAME--------- NUMBER SEX AGE ADMIT DISC. XRAY# F/C TYPE MACY Brown [id number] F 54 10/08/19 [id number] E/R DATE OF : 1965 M/R# [id number] #: [id number] TR-06 LOCATION: TRANSCRIBED: 10/08/19 5:[address] HEAD W/O CONTRAST [id number] COMPLETED:10/08/19 5:05 RLB [id number] Reason(s): Altered Mental Status Syncope PHYSICIAN: YOSELIN BR R A D I O L O G Y R E P O R T PATIENT HISTORY: Altered Mental Status. Accumulated DLP-829.5 mGy*cm, Estimated DLP-826.6 mGy*cm. Verification of 2 patient identifiers performed. Patient has history of Brain Cancer with recent tumor removal. -RLB / BONE (DICOM Hx) CT Head ( Brain ) History: Altered Mental Status. Accumulated DLP- 829.5 mGy*cm, Estimated DLP-826.6 mGy*cm. Verification of 2 patient identifiers performed. Patient has history of Brain Cancer with recent tumor removal. -RLB (Hx) / BONE (DICOM Hx) Technique: CT HEAD W/O CONTRAST Dose length product (mGy-cm): Not provided Reformations: None Contrast: Without Comparison: No comparison study provided. Findings: Left-sided parietal craniotomy . There is moderate vasogenic edema pattern noted in the left frontal parietal lobe wit h 6 mm hyperdensity in the posterior left frontal lobe.There is an ill-defined 3.5 x 3.6 cm heterogeneous mass lesion associated with the edema image 18 series 203 within the frontal lobe is noted. There is partial effacement the left lateral ventricle and smoothing of the sulci. 5 Clinical Report - Physicians/Mid Levels [facility] Emergency Department [address] [place] [address] Phone #: ext- [phone] 10/08/2019 03:07 Patient: TREMAINE CAVAZOS Sex: F : 1965 Age: 54y 1 to 2 mm left to right midline shift identified. Ventricles and sulci are normal for age. The third and fourth ventricles are patent. Basal cisterns are unremarkable. Bony structures are unremarkable. Mastoid air cells are within normal limits. Paranasal sinuses are normal. IMPRESSIONS: Findings are consistent with a right frontal mass with vaso genic edema. 6 mm hyperdensity adjacent to the mass may represent area of calcification versus focal hemorrhage. 1 to 2 mm left to right midline shift identified. Please correlate with clinical history. While performing the above CT examination, radiation dose reduction was accomplished utilizing automated exposure control, adjusting of the mA and kV based on the patient's body size and/or the use of imperative reconstructive techniques. Electronically Signed By: Doron Delgadillo M.D. , Radiologist Date/Time: 10/08/19 05:29 . Note - Tests: (EKG - NSR, RVCD, LAFB CT head - L parietal craniotomy. Findings c/w R frontal mass (3.5 x 3.6cm) with vasogenic edema. 6mm hyperdensity adjacent to the mass may represent calcification vs. focal hemorrhage. 1 - 2 mm L to R midline shift.).PROGRESS AND PROCEDURESCourse of Care: 04:24 Oct 08 2019. 04:24 Oct 08 2019. Pt. having some seizure activity and both Ativan and Dilantin were given prior to taking pt. to CT scan. Await CT head result. Will likely transfer to [facility] Neurology once labs and CT are done. K+ is low and will be replaced IV. 04:37 Oct 08 2019. Apparently pt. has not been taking evening dose of anticonvulsants for several days - likely explaining tonight's seizure activity. Still await CT head to be done. 05:[address] head shows 3.5cm x 3.6cm R frontal mass with surrounding vasogenic edema. There is also a slight midline shift (L to R) of 2mm. I have spoken with [facility] transfer Center and the Neurologist on-call wants the pt. to go to the [facility] ED. With this in mind, I have spoken with Dr. Moran (Accepting ED attending) and will get a high level ambulance for transfer. She is becoming more lucid since receiving IV Ativan and Dilantin. Critical care performed (130 minutes). Time is exclusive of separately billable procedures. Time includes: 6 Clinical Report - Physicians/Mid Levels [facility] Emergency Department [address] [place] [address] Phone #: ext- [phone] 10/08/2019 03:07 Patient: TREMAINE CAVAZOS Sex: F : 1965 Age: 54y direct patient care, patient reassessment, coordination of patient care, interpretation of data (laboratory data and pulse oximetry), review of patient's medical records, medical consultation and documentation of patient care- see progress notes. Procedures included in critical care time: peripheral IV placement and phlebotomy- see progress notes. Disposition: Benefits, risks and alternatives to transfer explained to patient and daughter. Transferred to [facility]. Summary of care (CCDA) provided to transport team, EMS, patient, family and transfer facility via paper and digital media. 06:00 Oct 08 2019 Transfer to [facility] ED by ambulance as per Dr. Moran (Accepting ED attending). UTI (catheter associated) was not present prior to transfer. Pressu re ulcer was not present prior to transfer. Vascular infection (catheter associated) was not present prior to transfer. Surgical site infection was not present prior to transfer. An object left in surgery was not present prior to transfer. Blood incompatibility was not present prior to transfer. Air embolism was not present prior to transfer.CLINICAL IMPRESSION Generalized seizure associated with sub-therapeutic anticonvulsant levels and illness. History of poorly controlled and treatment resistant epilepsy (Associated with R frontal mass (tumor)). No history of idiopathic etiology epilepsy. Intracranial mass (R frontal mass 3.5 x 3.6cm). Hypokalemia.(Electronically signed by Jordan Ch, Physician 10/11/2019 09:22) Name Value Range Interpretation Code Description Data Karoline rce(s) Supporting Document(s) ID Date Data Source [id number] 10/11/2019 02:19:47 AM [facility] Name Value Range Interpretation Code Description Data Karoline rce(s) Supporting Document(s) ABO and Rh group [Type] in [facility] Blood bank comment [facility] ID Date Data Source [id number] 10/13/2019 12:33:48 AM [facility] 10/13/2019,[id number] Name Value Range Interpretation Code Description Data Karoline rce(s) Supporting Document(s) ABO and Rh group [Type] in [facility] Performed at [facility], [address], [place], [place] ID Date Data Source [id number] 10/10/2019 10:46:09 PM EDT [facility] Name Value Range Interpretation Code Description Data Karoline rce(s) Supporting Document(s) ABO and Rh group [Type] in Blood [facility] Blood group antibody screen [Presence] in Serum or Plasma [facility] Blood bank comment [facility] ID Date Data Source [id number] 10/10/2019 05:51:37 PM EDT [facility] Name Value Range Interpretation Code Description Data Karoline rce(s) Supporting Document(s) Consultation [facility] TTQTFw7uQhUEEpWh96/HIMbhDCSly8PvAQbmJJe6BBemVKJyQ7YtSSY7fH4sYQU7DVcIDuYzAvXzODK0 lbm [file] AgICAgICAgICAgICAgICAgICAgICAgICAgICAgICAgICAgICAgICAgICAgICAgICAgICAgICAgICAgIC AgICAgICAgICAgICAgICAgICANCiAgICAgICAgICAgICAgICAgICAgICAgICAgICAgICAgICAgICAgIC AgICAgICAgICAgICAgICAgICAgICAgICAgICAgICAg ICAgICAgICAgICAgICAgICAgICAgICAgICAgICANCiAgICAgICAgICAgICAgICAgICAgICAgICAgICAg ICAgICAgICAgICAgICAgICAgICAgICAgICAgICAgICAgICAgICAgICAgICAgICAgICAgICAgICAgICAg ICAgICAgICAgICANCiAgICAgICAgICAgICAgICAgIC AgICAgICAgICAgICAgICAgICAgICAgICAgICAgICAgICAgICAgICAgICAgICAgICAgICAgICAgICAgIC AgICAgICAgICAgICAgICAgICAgICANCiAgICAgICAgICAgICAgICAgICAgICAgICAgICAgICAgICAgIC AgICAgICAgICAgICAgICAgICAgICAgICAgICAgICAg ICAgICAgICAgICAgICAgICAgICAgICAgICAgICAgICANCiAgICAgICAgICAgICAgICAgICAgICAgICAg ICAgICAgICAgICAgICAgICAgICAgICAgICAgICAgICAgICAgICAgICAgICAgICAgICAgICAgICAgICAg ICAgICAgICAgICAgICANCiAgICAgICAgICAgICAgIC AgICAgICAgICAgICAgICAgICAgICAgICAgICAgICAgICAgICAgICAgICAgICAgICAgICAgICAgICAgIC AgICAgICAgICAgICAgICAgICAgICAgICANCiAgICAgICAgICAgICAgICAgICAgICAgICAgICAgICAgIC AgICAgICAgICAgICAgICAgICAgICAgICAgICAgICAg ICAgICAgICAgICAgICAgICAgICAgICAgICAgICAgICAgICANCiAgICAgICAgICAgICAgICAgICAgICAg ICAgICAgICAgICAgICAgICAgICAgICAgICAgICAgICAgICAgICAgICAgICAgICAgICAgICAgICAgICAg ICAgICAgICAgICAgICAgICANCiAgICAgICAgICAgIC AgICAgICAgICAgICAgICAgICAgICAgICAgICAgICAgICAgICAgICAgICAgICAgICAgICAgICAgICAgIC AgICAgICAgICAgICAgICAgICAgICAgICAgICANCjw/pVRyP1yzeZCqqrC8Y6usSy5KDj4SOD2lo9OgIP CcRNzjctJaUkjEPeEgBNZbEynVYvc0ZKxsBW1KoDJn T8EvD9AaLByxJW0KEHWuQZDteMJsLHVxLQGkZiN6WSIbAJebTY2JiUNtBHgfRLBrBARfFaPkQGQtEJWs OMXoHFAjUCGOPUGpRCOwNzNlYUYfLVJwRC9DCIDhD867puMwBz8DZt3TJnCxIE1ucl5RUcpaJOMnRdvU Ajj9JKxdPG2TaYCczEVgZZQxTGXONtZgC7pqy4ZwUu CkCDTBMWjfNO0Iw4YniYGcOAu+Dq1YRG7yx0ZvKXkiNWSaYP8rqb0QIBgYBzWeT3RkhPrsQTOamxK1vA LpFLK6RBswCoSfSUkmFCSprYAvtZ8wRI4FCLM1NDjdKN2oSKWgJWK5MuF0NTXYSW8WQPYxJFHugARpRW QiGMTTLJ6FJDigZYV8TUPqczLysFRfUFybVA3BMFZl bnQgMjkgMCBSDQo+Lz9ONH0ko1XrUMygXGHfTG5bjh4MGOpFIeQqO1L9eWYyY1V2RPzpJr1NAURlKXXj AmjwTRSPEGxaQB2KHW6srkS1BG0RoHPaEWBuRQIdhIFuJBt3Y03enLEiMErdLG5BXSA+Greta+Co8ALSLn HOWdQUXgUtBhGPRAZnWhS7OnB9RWv7XaC7SbLA03bU umtuOdDPcqIP7BUW6sLCEeRIVSEQ1ZaQQwaP2nrbMqPGOuLIXMHmGqL22wnAWgVQNiVZW5TLRqRu5MIH OzL4BbwiAbyDuxtjLbRYOrSQDBGI4DAPmqglNsuSSpeXxjHE05mDjvUU3ZUu0WVjNrBB8ged7GoMMhSm 9TPLHlYy8TNPCxLMBwCCQtYLN4YUEbUmYaSUjsLIYo YLPdAXE6OHEvHCCuAU8VIpApWNVpDoTvVthdDGAhFDTpoo6WEAHvSUNuGsc8EtYbHZCcZGAaUBmyWNJl XXMfITA3VBBpAJPjRE9HLzLrWGCyBMP4KwTtZLKaSYZyah3VPFVvVYOnUPPiNzGfIYReKJSdXSuvGQLf UWC3YPocLSBpLUUlFV6ZQrCrFAGyTYjtSZJnENOhPA Ailh1WQGJzBEDdFHzrORDxBLPfBBJwIXmpMAAnVMQdWQI9YGKbLKIsXT9IRmBxYENrZUN3AhxbSFHnRZ Oqlx4ALDLwKFZmWrQrZIYaTBJrIIFqEIhoGDGrWET6GEBtOPDdRITtXL7MQpWaACDmYFjyVteeQXYhOS Txdk7JHYDwSKVzFCCoEdUwOTRrFBWcYTqpSMVmLPXt DiX6VDWgXIHlPR8CPiEaXQVyGyZfUjwxDJRlPCFjti5NORCpZPErCKK6YbLaYADfJJQhBQevCOWyPBEl SWN2PWEcAMToSS2KCmSsGPSxGiZ9NLzbTVSzLRRxiy5ABROjMZXwHedjTICjIPQgUNTxWGaxUPExZESg WFG4GWCiVOXfML4AZlYfHDXhIoKmJYIiBCNsGVCuso 8DJBVtRXUoULRvLHCmFNBmQSOzSLlxCILzIAN0NLXiCPTeCDElGX5JWwJrQKXhJwDbMDffPWGuDUCpqf 6MFIWoDLIrOKIcCVLgKHOrOXMaIShnXQFxJXC8MzP8SQIwIEKbWW1OKoCqEONsSrxlQicbUMKtQXWihr 6YWWOhTVArOyO7VZLzQXIsUQRxKMziKJSyCBL0Oadd OJFkKOQfKS5IUpPfCMgwVMHFRsk1QMgzV7b2ZGMjQu8WT8Vod1BnVuXlVRFRMDhpLW5vlxLsSKRoTj1V V2iUKdamXGJlTrm0USXrTlG8SVApKSFlVVLqI7ItWpkyDqf6Ba3mTYP9RGUrLUfiTSDgHZcuJEXjXHSd IGV4YNBtOQNuFrDfFkVdZQ0GBz4IKzD3ARF7bSCzRz3SCzm8KtGBXoExOH6GUAv= ID Date Data Source [id number] 10/10/2019 10:22:06 AM EDT [facility] XR CHEST FRONTAL ONLY [id number] RESULTI nterpreted by:Sai Laird MDYoungangus Hastings MDINDICATION: 54-year-old female with history of brain metastases status post resection and seizure. Evaluate for aspiration.TECHNIQUE: Single 85 degrees frontal view of chest was obtained.COMPARISON: None available.FINDINGS: Scattered degenerative changes are present in the visualized thoracic spine.The aorta is tortuous. Otherwise, mediastinal contours are within normal limits.There is no evidence of pleural effusion or pneumothorax.There are linear opacities in the peripheral left lower lung likely representing scarring and/or atelectasis. Otherwise, lungs are well aerated.IMPRESSION: Left lower lung opacities in the periphery of left lower lung likely representing scarring and/or atelectasis. Otherwise, no acute disease of the chest.This document has been electronically signed by Sai Laird MD on 10/10/2019 10:19 AM Name Value Range Interpretation Code Description Data Karoline rce(s) Supporting Document(s) ID Date Data Source [id number] 10/09/2019 09:19:18 PM [facility] Name Value Range Interpretation Code Description Data [facility](s) Supporting Document(s) Consultation [facility] UGNZRg9mGxZIAtIa61/FRGnhERCis9ZuGQmfOEm7ZGlgUBSaZ7JaAPD3pH3vDSF7ZZlVCiHfRjKbYPS2 lbm [file] ogICAgICAgICAgICAgICAgICAgICAgICAgICAgICAgICAgICAgICAgICAgICAgICAgICAgICAgICAgIC AgICAgICAgICAgICAgICAgICAgICAgICAgICAgICAg ICAgICAgICAgDQogICAgICAgICAgICAgICAgICAgICAgICAgICAgICAgICAgICAgICAgICAgICAgICAg ICAgICAgICAgICAgICAgICAgICAgICAgICAgICAgICAgICAgICAgICAgICAgICAgICAgDQogICAgICAg ICAgICAgICAgICAgICAgICAgICAgICAgICAgICAgIC AgICAgICAgICAgICAgICAgICAgICAgICAgICAgICAgICAgICAgICAgICAgICAgICAgICAgICAgICAgIC AgDQogICAgICAgICAgICAgICAgICAgICAgICAgICAgICAgICAgICAgICAgICAgICAgICAgICAgICAgIC AgICAgICAgICAgICAgICAgICAgICAgICAgICAgICAg ICAgICAgICAgICAgDQogICAgICAgICAgICAgICAgICAgICAgICAgICAgICAgICAgICAgICAgICAgICAg ICAgICAgICAgICAgICAgICAgICAgICAgICAgICAgICAgICAgICAgICAgICAgICAgICAgICAgDQogICAg ICAgICAgICAgICAgICAgICAgICAgICAgICAgICAgIC AgICAgICAgICAgICAgICAgICAgICAgICAgICAgICAgICAgICAgICAgICAgICAgICAgICAgICAgICAgIC AgICAgDQogICAgICAgICAgICAgICAgICAgICAgICAgICAgICAgICAgICAgICAgICAgICAgICAgICAgIC AgICAgICAgICAgICAgICAgICAgICAgICAgICAgICAg ICAgICAgICAgICAgICAgDQogICAgICAgICAgICAgICAgICAgICAgICAgICAgICAgICAgICAgICAgICAg ICAgICAgICAgICAgICAgICAgICAgICAgICAgICAgICAgICAgICAgICAgICAgICAgICAgICAgICAgDQog ICAgICAgICAgICAgICAgICAgICAgICAgICAgICAgIC AgICAgICAgICAgICAgICAgICAgICAgICAgICAgICAgICAgICAgICAgICAgICAgICAgICAgICAgICAgIC AgICAgICAgDQogICAgICAgICAgICAgICAgICAgICAgICAgICAgICAgICAgICAgICAgICAgICAgICAgIC AgICAgICAgICAgICAgICAgICAgICAgICAgICAgICAg WYHwGWJmPSBhOHAhCKEyYMVkDSu4D4rmOIGhWBLrPG2pYSf3Co5+VCwARvTpLPP3kkHpfZ2XPG1yr2Hv FZbyTOFmi8UaQSa3PF6CGKBkPQljFM6TWQuelp3PHTPeGLIgaYUAf3uuRpQiNIJ8BOQdYfyoGZ6NPXHh O6tktzArTHHwYTYHDVclBUMGYPotOSGBGLEmTKNuKy ShHFmjFC8Mo6PotHU1DIj+Jw9ODU2lv3DrUEvkMXYhFZ9rwo0KVMnFDuKlV7OiyhH8AUM2WJCaNp4HRB CsLIMauSPxTxEaSEPMGsKkF2RqgQ23MVBXFm2+WTcdifDbDayWFzB2XZPxv6YgHKg9UG8VTXFcTIe5sD MjL75bg3SqlYOkClilEcVvlRFivqerXNFZpZ0hbuNm OBOQBKN1YHauPB6mUCOeWPH0ZsS6OTXUUR8CAWVtCYUmpTEeWOZvZNZSTM4MDAqqSKD3QDSdwlApoFNz XRlkTL5ARWTetqQdObOqGHXERAr+Db5GSH0pu8EwJMfoVlMdEF1gys3RWAyYQwVoX5N5xIRaP9C8GBxi Jv7UIXWpTNFqHdWcVHWMYRznEP0IQZ4wugC9QP4XtH QnWXRsGDLlcOUlZJv6R04lhEKdCWftEK1FSWT+Greta+Fv9NYMGpBPAySQTzTyBnQYUFHcDcK0PjT7TFq9 RzF3XiOQ14jLufowOvKPeaFM1YBH2bUUGeBMXZVP5KlODupL5gxvBqTFChKFKYXaUxQ01wtTWdMKXaVG Y1YOQpHc6MXMRkG9OwffJkuXxofyUkNDBvDUYSZY6R ZHwfiwAbmDMpyUoyNL22fFufDB5KJj8GAdEwFB5khm4KlAQeDb0XKXQxDM5LWIQwTRQfLHYjVDD6ZTMp EvNfNYneOFAaMVOkNMX2SHJaKPJuIN7BWhDpEGYoLhz7SFVdFIBiLAFsnp3WFESfMPUjOWZ4OjWkDEFv RGCdFRrxRENpNZAhPZE6VEJpHWSdSK2KWnMvETPxQC WpXWgqLIEfAKGfcu3MNHUyBGOcBRD6SiQaYFXxCZJbSUkgAVFqAGD3EQYaXYSqGHGeJW5AEdXaWCBvYK vyCPqrBTGgCLXvna3SFWFzUOXdIYZgXRSaBEAbBKKuNRwxYJSgRRSoUZPjWSPiDLXcFP6GQwXgKYBvPQ R6OkqkTEJvEAGsqk9QLEPlRYLaHfUoYFPsLRLbLVQi FRidGIGzKKI3YHp2GSFzRFItQK1UQcVoVRSbCLL3SPVnRGUgKHRyss8NNKWySUOnIId1FPXoAYHvOXOh IIuiMCZfVOD6STR0DKIvRIZvAD7SSwZmXOSqYWBxWhGkBKIoIUEseg5ELUClSFVsXcKnMSUoLJWhQDSn FDgcDCRuXNB2VnL8ZNNdWMIiVM3UNmAlHKVgKtzzCl bgNOKbNJPeiv5JYNDyHUKjVMVqCdFrELItLIAwNImlJYHzSUK8VNb0VLBdKLMsRS5VGoUzWHTmZrk5Et BqCKEoAYHnft6HYOGgVGHoHWOnSyZqFHScPLTdIEskDSPnSCQbUXx2GUPcAXWhTR1XGqWwPBHvVvQ0CI CuRNRvTGWoxp4IKCHlOKGkAOE4TBZsNENqYXLlQAr3 tbRqhUBaNQg8ZL6CD9LvapWdZmkERa3Rr523NVT1MMDzQl8AX1lyGs7zYACcUTMKFi9YNMb0GGtsMyB1 PNEaFlJ8GDciDlSxEHM2EfIhEcZkSWGrXaP+BQp6PVZiHArxIII3ECkeRfAhKuHxVUcuYQAiUaKyLhKn GK6yWSLNTx8+TLqhbYCulQusMHOQBhNhPAZ5BRvvEZVZOu9D ID Date Data Source [id number] 10/09/2019 04:42:31 PM EDT [facility] Name Value Range Interpretation Code Description Data Karoline rce(s) Supporting Document(s) Consultation [facility] SYEAWt1wMfJAGlBt59/FUPfbVHFcn5YdUCvsDGk1JWjmEDCzU1CdQFX9iL4pCMM0DBgVNiRiZfDfQBB4 lbm [file] AgICAgICAgICAgICAgICAgICAgICAgICAgICAgICAgICAgICAgICAgICAgICAgICAgICAgICAgICAgIC AgICAgDQogICAgICAgICAgICAgICAgICAgICAgICAg ICAgICAgICAgICAgICAgICAgICAgICAgICAgICAgICAgICAgICAgICAgICAgICAgICAgICAgICAgICAg ICAgICAgICAgICAgICAgDQogICAgICAgICAgICAgICAgICAgICAgICAgICAgICAgICAgICAgICAgICAg ICAgICAgICAgICAgICAgICAgICAgICAgICAgICAgIC AgICAgICAgICAgICAgICAgICAgICAgICAgDQogICAgICAgICAgICAgICAgICAgICAgICAgICAgICAgIC AgICAgICAgICAgICAgICAgICAgICAgICAgICAgICAgICAgICAgICAgICAgICAgICAgICAgICAgICAgIC AgICAgICAgDQogICAgICAgICAgICAgICAgICAgICAg ICAgICAgICAgICAgICAgICAgICAgICAgICAgICAgICAgICAgICAgICAgICAgICAgICAgICAgICAgICAg ICAgICAgICAgICAgICAgICAgDQogICAgICAgICAgICAgICAgICAgICAgICAgICAgICAgICAgICAgICAg ICAgICAgICAgICAgICAgICAgICAgICAgICAgICAgIC AgICAgICAgICAgICAgICAgICAgICAgICAgICAgDQogICAgICAgICAgICAgICAgICAgICAgICAgICAgIC AgICAgICAgICAgICAgICAgICAgICAgICAgICAgICAgICAgICAgICAgICAgICAgICAgICAgICAgICAgIC AgICAgICAgICAgDQogICAgICAgICAgICAgICAgICAg ICAgICAgICAgICAgICAgICAgICAgICAgICAgICAgICAgICAgICAgICAgICAgICAgICAgICAgICAgICAg ICAgICAgICAgICAgICAgICAgICAgDQogICAgICAgICAgICAgICAgICAgICAgICAgICAgICAgICAgICAg ICAgICAgICAgICAgICAgICAgICAgICAgICAgICAgIC AgICAgICAgICAgICAgICAgICAgICAgICAgICAgICAgDQogICAgICAgICAgICAgICAgICAgICAgICAgIC AgICAgICAgICAgICAgICAgICAgICAgICAgICAgICAgICAgICAgICAgICAgICAgICAgICAgICAgICAgIC JjPFDjVQIvYTKzDXLvCGe9K5yyPBBpEEHtTM0fQEg3 Jz8+BJiKCpBvMXO0jxKaqW1GOH6xk2YeHVgtEIJtn2WuHTb7YT5JZBQkKGycYY5DDBeboa7IMMOjXLYd uYYXg3ewYyXrCDL0YPTwEbpeCH3DDYSqD4inbjNdIBXzQFZRXRahQYLDFRukCQIWKAFjAMEaQxIuTlYd NXZhWGSfHUDECQ5BTlGmE2ShgY02FPAJJg6+DQplbm AkMkjFKmK3OXRrf9JhJPa7KT6USTKmOstfz9OhKhJdKDBNCUkjMM4ALGP1XKG6KOXrHk5DVOZoX753tm VbGM8XPq3OWqMxZG4qgb6HRoMkCWSnNgeUMze2LWjxYC4LaEHeBFfRz75ehUn6yaJdoSQNayL1JPVrpD GnKUBVXTWdbTO1DzMjCnEjEKIvGTrvFoSOHPcNUcBr E2Ldb2HfUyB8QEDgSrYqNTjnOTTdWiL3JR67uRjsMK7WRFVuADAsVF84BJK0SNCrPs7NKa9TJmQdPM0t hq8QSbuiSANkRvjICos6XGhkZM4FjEQvF3GxsUDte7pIKrAaF6WRMVOpVEHhKd9VIIUlQrStKNAgRPdy KD6nDLSjDVWHiJzrirZ8QQ8KZG3fbhIjRJ9ZSgRoVj 0vKg9PRuZgR6UiM1PrPLArLHVHUMgmWD9JALfgCF4aXY5Uz0GIzFXofP0xjt8RVOJkPMUkGgdhzy9ZXg qfI4V9iKhgNVUsTqHhIMZXQIraXN8ZCZYbDUF3QQSfGDZeCCLZMgVzN28nUJ8QA7Ves20xEsF4XNYhNu FnWGmxBO44rGbmbzAryEKcvJnjUN4KIc9+DQplbmRv PiwOUzgeDEZRMkGpHgmPOkVgGVSbJGOwCVZiEpQ7FrKeTu1IGLGfRNBsOAAqClUnBNGzKZKzSXroKAXv VJU0DLEyTOOrRBKdSX7OFjLkRGHgSzg1XRYiRWKcBNGyco4LKHFiWMCxUQC6ImLbIRYtNWPfJYzvPGDd GKJiSAn3QYUbTIOxLC3ZRkHjBKXqIEQgMGIcUUHvZH Robw8YQDWfQKUpDpE4OLBxNJErRYVbAEedSNSjCTK4Xbi0JXFxOPVqIS1ICjIoPNRpMKv3MoLuKDBgUK Qzgp8KZCDpWMSkOPf7PAZqWGMfWCFeANluVOTxKFBlEJsiOCTrGYWrXG4OSeSmSMEmCZMnYPvvKQOhXS Xmby3ZNDCgKPXkXiQcWNVdAZKrGRUhYOozYVIaLZI7 KnO2PWLnIXCgHS4AUzFvBRCkEZtdDygpFEDmCVGucc8APCNzLCBlJCZ2FcXqCOBsKRLiXZcuSPZsYWZ2 WBOmHDTwTDZcAJ9FGkZkHKSqXCd6WNZpKFUrRXXvml5CXAIaUCDuTNwrOhTmFXNgDHDoEThoDMDeJZIm OvgbNHEdNZZaPM2NCpKyKKQuHtJ8JQLoIUGcHPGdmd 1SYQNmYRPqZDF2XoJdYEEjVKPrFLgpJXRqMUKbQGCeCZTqQDNxFK6YCkYzTFUbYrRtPqzoIFFlIDEeib 2BFRPvAWNxWzLhBiRbFTWmFDSjZPkjNAIrDRUiTUd7GPQdDTMkKK3PVlUlZZBcDgXlVVPdOMZuBKAskf 0OORGbPINiGSDfLWEhTTPhFGPfIIgrBICzJZQ6JcWk QUZeHNTpOH9DYnHuZJLxWjP8WZfnCHQyBGDejk4ICBSfVYOnIBh4WtPcPZVaRIIwSHwbVQJgFXN6QGV1 DAVbWFSeAS7ZSoCqGNFjTqGkAqlkGHMaJJZghr2IVWFvJNOoFsD7IFMpZULvQKUmWUkyKKOvEIE5PGPp RTDrSOMcST1RVnYhKOUyNcojTJFuZQIwNPVmox8ZOB SmSSYmVJB0YBOkBEImUFImBEb8wmYzhVOiMXu2EA9QE9BborIzHyiABj0Dc454BRE4HIHqMn2DK2fwBu 4kZVXhKCEQEg8UUOn8KAVvGqZ8BpBpSOemRTP3LrNgW2Y8RrfyBAKhFqNpBCS+EZkbIrE6MmO6TsL7WK XsOPo4GoWfDtC0UzEvEOJ6WTK8MO6iSKJSNq3+VYpioBVrmWphWWZJXaY1JPu8FMkuLMWDSs4D ID Date Data Source [id number] 10/09/2019 03:16:57 PM T [facility] MR BRAIN WITH AND WITHOUT CONTRAST [id number] FINAL RESULTInterpreted by:Amy Seo MDINDICATION: Known anaplastic astrocytoma, seizures.COMPARISONS: CT head 10/08/2019.TECHNIQUE: Multiplanar, multisequence MR evaluation of the brain was performed both before and after the administration of IV gadolinium contrast. FINDINGS: The patient is post left frontoparietal craniotomy. Post surgical heterogeneous enhancement is present in the underlying cortex.There is a mixed solid and cystic enhancing mass in the left frontoparietal lobe measuring approximately 4.5 x 5.4 x 4.5 cm with areas of ca lcification and hemosiderin deposition. Extensive vasogenic edema involves the left frontoparietotemporal lobes. There is mass effect on the left lateral ventricle. Mild midline shift to the right measures approximately 2 mm. There is no evidence of uncal or tonsillar herniation.Scattered bilateral T2 and FLAIR hyperintensities in the periventricular and deep subcortical white matter, likely secondary to chronic small vessel microangiopathic ischemic change. The ventricles, cisterns, and subarachnoid spaces are normal in size. IMPRESSION:1. 4.5 x 5.4 x 4.5 cm solid and cystic enhancing mass in the left frontoparietal lobe with areas of calcification or hemosiderin deposition, compatible with the known anaplastic astrocytoma.2. Mass effect on the left lateral ventricle and mild midline shift to the right measuring approximately 2 mm.3. Postsurgical heterogeneous enhancement in the left frontoparietal cortex underlying the craniotomy site.This document has been electronically signed by Umair Lopez MD on 10/09/2019 3:14 PM Name Value Range Interpretation Code Description Data Karoline rce(s) Supporting Document(s) ID Date Data Source [id number] 10/09/2019 09:29:39 AM EDT [facility] Name Value Range Interpretation Code Description Data Karoline rce(s) Supporting Document(s) ED Provider Note [facility] FYDGTo8rUnQUIyUi81/EJMxuZLZsh4XvADwlFNo5ZMfnALSaB0UcXFE2dW3nNEV7VYaRWgRyKqXdYTJ1 lbm [file] 0K ID Date Data Source [id number] 10/09/2019 02:19:39 AM EDT [facility] Name Value Range Interpretation Code Description Data Karoline rce(s) Supporting Document(s) History and Physical [facility] ZCZWMp6aXcLTBgPl46/FLKhhGSTpu8CbPVdoNLf9ASzmQARsL5ZkGTC3pA3iACK9LFaGMbZyKuJaMTW4 lbm [file] AgICAgICAgICAgICAgICAgICAgICAgICAgICAgICAg FWSxFAXfLXUdOQ4VXMYeVLIaQCMiBJIoZBAnQMPjVEHdUPVpVQFmPSKqHNDjPYXmTPHzRHVhGEKqFCLs NMFeUVTdWCVoABTiGEVuZANkWKVlWBTtZWChWSJqPFGxDIVzUYZlTYCnQCEpKUNxCSNyWY3CZCWdZXCh ICAgICAgICAgICAgICAgICAgICAgICAgICAgICAgIC AgICAgICAgICAgICAgICAgICAgICAgICAgICAgICAgICAgICAgICAgICAgICAgICAgICAgICAgICAgIC EeEG3BUSKbSDTlKNBjHTZnCCUwRINeJNOzAKYmLPJaWAYcUIRhSGTbZJNuRBSlLFFeRDXbABHiDQIgAN AgICAgICAgICAgICAgICAgICAgICAgICAgICAgICAg JGAzWAYuYKKdFMCqYZ4JYHJsZEXwUFUjVHVaTUNeLYNhDCExNZFwMCXjJJNaLVHjOLMbSSFnZKDkAXKy HCIgZWJmONNeBSUmVSVoUFFaCEAgPZBlAIZaYPHcQMHwWCXlLWXwRKVfTOGlYRIcWYEvTZMwSV2FUTCp ICAgICAgICAgICAgICAgICAgICAgICAgICAgICAgIC AgICAgICAgICAgICAgICAgICAgICAgICAgICAgICAgICAgICAgICAgICAgICAgICAgICAgICAgICAgIC YyBYEmZC7ECTRhFRPdORYnHATbLVAaCUFfTAKsCNOjLBUeJMScEBHjBZBdKGGkJIPzYTCgNFXcIKNrJW AgICAgICAgICAgICAgICAgICAgICAgICAgICAgICAg INMvKSGwBLJcOGFqRPIoKS9IQVQmRSLsJHMcIXWrWXZaUSLjZVEqJCNcTLUaFEPrNTFhVTAzQIBhBLSu LWVdMQWbZYRnFDGfFHIhFEInVQIvECPwTEIdRRQcSWEbMYRhECFuWXRhTIVrLYXnHKQmBEYyLHIkHA7I ICAgICAgICAgICAgICAgICAgICAgICAgICAgICAgIC AgICAgICAgICAgICAgICAgICAgICAgICAgICAgICAgICAgICAgICAgICAgICAgICAgICAgICAgICAgIC VuTIOiMFLsKY0GMBEkZARsSGMnYULhXOUgYVVfJGQmGLDpNZDqAKNnVXIlVYTbUASdGOKuGSObXZSuMD AgICAgICAgICAgICAgICAgICAgICAgICAgICAgICAg EAPoACBhILQsVVBhDGDtEXYgXM7LRP96eSUoh1B3KQBqNW8qrjh/Tz2WRBsgdlQyoOQbXH5MYvBuMS4k uc2ULqBmTG7ign0WIIsUSpOxR0R3aRGfEMGbUTAVNqNvB93mUWqaNx22MIohBIPgXiHrJCs5Ur0ZZdPn M4xjHCUkOiV2IJQpSzZ3FUMuSeF7ZQRdYhKmIJHbAZ EyJFRrNOPZUEN5CJBcUhHyTMcqCS6Rt8RynZW8HSw+Qp9SHN0lu7JwLYt4KDZzWP6juh7SREfBDeGmB7 CfwnL1UGXxPJLqSb5ACTTaOSNgzJC0IFLsMVQNTtRpV9RrgA55YZIGLp8+DQplbmRvYmoNCjQxIDAgb2 PiFHw4DR9MNPCuKCw6lXIjBKXNTIE8CQTyWQMpKBXR WLC1lLjiYZIwOFFkIB7uWcCtHdYvIFQ5HNQlEX9jETjvJB7UUFX9FVdaWSPjEUSxH7sKStAtWULmViXp wOvzQC4FTwIfW0XwvtRfiQK6YCLqEWYBQf0+SOdujzNxHveEKhWnUDWfn1BfSDv6LI4XZWBgVHlkDP0F BZLflM5xNMjoAY7HAaMeDDDyNZACEmVuB03cfSHyOE i9J3ThLoIeZKMvOrfiLEGhXLhrZoFwEOMlZyQxUPscLU3+ID4+HUkpPQ2XDMtddgYlNBEwRo1ARCJmPM KqVE1yAMPvJSYrT9U4qFeuQJQOYeYgC0wapdblFN3iAZWhO262dOqyoeKtEEJjUJIkKt5HVVOmBYL1GY FcqLUvFlicMUNKDSkzFR1AqREuWAA9pD3aYHquIXWw NMBtU4iYArDlrMwmNN48iJrribPawMAvKVi+Ds0DTA0ya5VqQOg6hhIhELtvIUOnPPmpVGTaVNUjCORu BDP3BAV6RJYXEeGsJWEtKSYfPRpgZEVdQDWsbi8RIILsTSK9MmR9HvXaUIDmNGVwFQouYJKjGYayKNyc RSClDXCfWN4AVuYjFCMyQQCkBUdbZJOrGTQlvj3POR KrHGGnQvZxNLAnPQViKTNvDWgpEGIxUQOqIeF5GOIzIKXhIK8MRnToGKZiNTN3PDKaYKGxKXOtoy6BGX FqWEUwVwgkCJJlRJXgAETnJHukYPQvUIGbCmm2TLWhJIWeVX4XEqVsOHHgDKA9KVYfUAObFCTcct1AOM VbLRLdFfz8KZNlVMPyMRNsOPkjSKJwOCA4REx4KMCr IIRnHU9QSqEvSCNxPOljDTLaEWBpUKEhtp8SXAJgNMLsXVP7PpIaOICxUIFoTTcgYUAqUBJzWgflQEYu RFIvYZ7DNjCqATUbSqM3NmcbGLVcFNAjts8XWZLkWQIlANvkGIIkBVQiZBRpBVirOZAmAJTnFOS4SQDz AOSpFR7TTiNsAIRjGfCfROimQTIuRWJpen0MVGDxXX RzCtN2SNZjHFTdKCRqKSvzYQEbJCEeOYuaVJJnNGOpND8MVgAfHVVtGfA6BsfzMJAyGWBkoh1PPAOrOK YmEUXeRUBfZYQdJPYdJKwcSYUaAIY1GPE2BXFfPRDkFR5LGlWcTPPuBpVeULzjFGPyZONbdx9SBPFbCP QoLQz1XfReCRPlPUCdWJqnUJZrULO2PYX9YMIoIIXx YB9NRrGdIXKeXkKtYXjuVOZmTCAijv1KYEDvTHVsGdw2UrWbQFIfPTNeOUhyDYLdIUD3ZWHqQIBoWTXv QM7RMwHvJIBoClygNyqkSNRpBVWyfz9ZJPKeHTXsPMJnGHDfLUVgGDMjVDedMNJmXHN7UpY1DQSvAWYv VX6LBoItPDLtLtz5VUgeXLOzHPSlfd8ELMRkUEGeTV d0ZzVfZSIdZUWoWDjzMTQtZNJ8UWK5KQRiBDZmZG5CTkVfKZGzGHU1LYAhDFOtAJEzkm3AROAeGFE5Mq Z9WNEzTVVvIVJlSLgwRAPiVTqzEoLrBUBdYHCrVX9DBdOeFHAiTGUnYnMnLBVgZVVryp9EKWDjFQO0OO K7OAIuFMEmLWKwNZylBHLqPRf5AvWdSTLvFNEkJR5T XkNeAFgtDGFYUqa7XNjnQ7e9JBK2Oq7TB2Rzk2SzIVRsYRXIZXmiEZ8vfbAmOYDlGw3KR5aVGnw0GlDk JyH2AQMjKGQgH2ThOBAvDKNkENJfYNDdI3UeMF1mGCMgZEXaErViSeYdStFxYmAcNjZkNqRqMIP4JGU3 FyA6SyInIQ8YQm4SEiB9ADR7wAAnBl6ZALQ2EtGHFnTvLH8ODHy= ID Date Data Source [id number] 10/08/2019 11:40:37 PM T [facility] Name Value Range Interpretation Code Description Data Karoline rce(s) Supporting Document(s) [facility] FQVTUz6wExFBGjCux6YaOcReDOCmZJ2pjwo5P4Q0bGAbN8WetREnk7kdZ3WtQ8IgTEFnLBQHAJ3YaDZm jb2 [file] n/xBTrhVL08rDDP+uriah+cbsw/q6bb++Nb1k6mr17uJ91n1jmV+133+9CXscwTzmv2OraN8MotdjgH/4q t2aP2g5+ed/0zA97RaaHoNNdY18KW85GlzcfQ9ZZ4R71n435b1y8/fQjZjd5nKmDxwZiKl+qd2czmD5+ lQfqB+hH4nkrNlJ7ZszLCp/KE/IN1NpbYEb/Rv19Hz gNqy7yn563s3B1Nk1Cr8ib1tjtiP3K90cg3k01SE8Nn7g14I/8fxNOVh62hzUebK26B3J/5ft+dNYf/4 7dOP++5z/7Lq2z2AUnd/EAigDab6gpbEyGk8X48L3/R5zz+BkwB72t0tOgo1ppj6Hta9/tWmbYv8R/b3 8sd83c9oC44/17GTVH030B+saLJvWg2ugwUUvgIET6 Z22gNLtpRZjT+kwsj53glaW+o37f+gXz31pzvOkFG+cH2xE1xD8XjvP/5SGXp4i83B/3/Lynsey+/4YE/X3 co9rYg5s5CQ7yn5Ns/ASIevne4kwtJdrYgHxAU3E3Dx4GqoelJ9B0/W5Fb385tw0bHU1Z/XwN/JXeezC eTbu/+UmgmP4Sw3g8/lG/iqX3B5/X9Oid0KgYd/x+4 Hz4Pk6/YK970uwwK5eziT+oh7+Sn78Sn4S/Ef+QosQa3owZ883Oo+Oj8oAb8bgddkurooIwahJj1gjf6 xphzh6zqu/kb8aE/5OtN/IX+O1dguz0P1n8S1/V5af+ayLKentJDY34KJcCz9fOcK4KHf37s189nD0c2 +2vOcdx6iWnT/AmiXi4VjK+Y+/bA7V0eGTz/B7+Bv5 K8/d4R3ok54WdwV/JgFA3H9b/Vl08ExSVqbuabJ4V/xF/cpVI48BjFE4Nfwdm961p9S6I+ox/oa+esu/ muj1eHf9yy517NsjAh/XhjLqO+k56ggtE+yW5jno9/V4axtrVG+tTZxn/dqptdt+gp58x7B8RivvxiWW Fe6lH0kPBsUJcf3A6vicn/r0D9P5K1w09wEZxBYweg E6HpBp2X0LOuk02opE37bOX9l7P869Ag/+heIy08Ye/l5T4lr+3I/xns6pzhPF+HhkUh7UY6Jg7Mspsg Cfj1WNbEA/dX5/8ZVxJD43hgzv7MGsXs40QnzgHVO/xoJdb/bVgU668r0/Gd1/mlkqCJzmYnTy31892o lna1x8m8t550v71nFMnm38p/0+r3cfD7l+jj0Ml83+ qwb240/m/T/+5t+AUnvt2dtdgo2IbQWFJ22PPy3/c+sA6NuqbM85DMn6n4Y17xOIEh7H6P2AvwpYuXY+ WMn3aieSqNXz91+h83jt0cp26xC/lde6+RyL+VexfLrf+XXW7/df6/a9moCyr3h0NxwV120cmEWJJ6mF 1N/bX5vmw8cid0lhthZUboBdVzA68wc1/cjGfT+yMX H+dyJgqRtwAx3R+QbvI29HsP1+hfvo47xT2Yz5bxjM+fB594yyXLI+KtpX5K+i5Nf43V/VD9Yz5U031N l1+8aDxXyGU/Y7f+Phtl7RHpBCcwH0on0uUdp+6wn1X6iA4t4h4w48ccnRes/198mWMJS1b4T+5xOa3/ mE5nc+ywbsF5ypqmb5sF4C/TJzw8WkabhF2Tcg4hsu 3nzdWVmb+ZmzsPZty/NWXvfNeoO2z4cOJy7fTXwJFM3KO8kP7bxGxerac9+Kzc3dWP+b04uVdvkYSChz t1J3rvyM8E7Zj6nWdO/0Uvj2Z5jK/dW6+Iokt99bRp1vvlH/U2sMsD0Bsn55w3R+6f4Qsa40lntir711 +toeN4pdVFnmb1hB2qGwI/zeY839b4++2inobL4/+i p5O/oq+Nw71qtD/qN8CIzbWGnAWbw+28BgCj6Ddpu33bcoF/ly98djmzdM34nDx0g302f+sO2br/N283 Ba0gnkg8Y934664jqLCtHxEaBxms0xurl8l/k6b3c+gzdDvaHeUe+ov/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/d [file] SC8jA/llZCDBjAxkmJGBFDMykGNGBpLMyECWGRlIMy WAyDQlZIUMFMYexPQPTkWYq4GAls5NTTGWa7dpmslwwIhZ4QjWaeXM9FJcRYSDsBbgWAB1MlMXTwLyB4 sfKP1tdbYaXnXCwGlZ1jFNDsqCsHOdnpNlJNVZhGWtpwtSMNUzGpS/FLAvPW0b9r/mw0tvL8TFjY9Lr4 go3PBMUThM9AZwuPgaeMq9nEF+iTt/DvwTB/0Th1am ZxgEAZOEiS5bUwgBldh3laChBy1Zf06GBomAzSGdhxTm0J7JXCUgAvQohx1WCH8r5iwOh1bkgvzI9YQP oJkwKQVhLn6UVt76ghj2YSlScYtrtS/etlb3yK01mIGHruRU1AhKnAgu8AvOrUiSCiAVGqcgWICrDLBR UOUXaeTHGTZjPXSgEW1UNuic5evjkAXj6GgfIbQbvT WT7dPTC5ByM1JGbWtUlwiVHmWpRMViJOfKdrGMkkuIp5LGnNGIvOVClTE6Khg4Noxo2EaDyDuP40BoTu vCe3D7TKUzINVwchXekyILM40pPNkKKpwQlAYnA/J2N0YsabLn+zhN6VcgeexjH8xYH3W/VQYKuMqYiH uJFhzt1NsX+V0PjRTtFRl/Usyr3FI8V++pZCGMXAIy 4klO07Myzg53FWxWdMNDhkM159fLmOqTIbn1IQbh7j7jfYxMsO6dyCZDFvB0I0cE3Eg60PFPIw+MwffO WRojF+CAa5LxxtI2w3wOJDgFVSO+iVkgI++5U94dRMYiZbRcvhhEKCVxNhYZtHuPpPkNR5VBONzxxgYY 5P9nTAudbBgQCzvbv5DQWT0u2BnJcmXdM8pwvJf0hP 0wOl4BNEjtvBWnKJ+Pt65ELJIViXoa58dP4y1DBs6ZHrGRtzJCdNMw+T/fI3eeCaPLaCz77tCC7Q+[employer] SALES [file] 90IDUgMCBSCgo+LagusKLzeKhdOUUJJuFdQgsGTNEDG2Q= ID Date Data Source [id number] 10/09/2019 02:35:49 AM EDT [facility] Name Value Range Interpretation Code Description Data Karoline rce(s) Supporting Document(s) Potassium [Moles/volume] in Serum or Plasma 3.6 mmol/L 3.4-5.1 [facility] Hemolyzed ID Date Data Source [id number] 10/08/2019 07:22:00 [place] [address] RESPIRATORY CARE REPORT ==== ---------NAME------- NUMBER SEX AGE ADMIT DISC. XRAY# F/C TYPEWHITE TREMAINE Brown [id number] F 54 10/08/19 10/08/19 [id number] XBE E/R DATE OF : 1965 M/R# [id number] #: [id number] RM TR-06 LOCATION: [facility] [address] COMPLETE:10/08/19 0 7:37 EWW [id number] PHYSICIAN: YOSELIN WEIR Name Value Range Interpretation Code Description Data Karoline rce(s) Supporting Document(s) ID Date Data Source [id number] 10/08/2019 04:35:15 PM EDT [facility] Name Value Range Interpretation Code Description Data Karoline rce(s) Supporting Document(s) Consultation [facility] LGIBSf7qByXIUsOs02/MXWuiFNJwc4IbSLtwVNn3VIziDZWqG3NuTIJ1lC1zYCL9LAbALgSrRnYwVVLh lb HjEbiMKsVxNRJnTcfAUvSmYYoyMvpufMKrJM7XvQO6JGKlL48pMVMbWWVaD6MeHODuFbP+Ve2FRUQgwM HtWD5FJqoZ0UgsF+NIEv5+0r1Die92t0PClQz3ejuOyKPCfiIW3TyHmJ8WcZMMDBRSE6x++vNrnKemqY gpRyJ4mg6vgnQ1m9uarwdeGmA82qwjP9nOUOo57+XP KHGZ8y61421GH10ar7Hgi6RDNTLxkikHM3Tddni9rKTS6WafjCq1TzbXYr+R6f1aR0e+GE3e/PMnMfpV TAImUng7S7HIqwB9XP91xFUM9wiIasBxIdjKJH9vgvexcaBXabrdCIALtxLwpViYphDr/PKmAOtBMndY rjGSOdyzSs6RmLC2NSyLjTUCGYSiPzTuaqD+dRa6tH xXLsV+De6PcKZAlmGy7jIV2QA70PtofK+ZDx55YjGWzwlymp1bq+CJWjnGbZGaAvsPxycot0kum83/W9 cuHdqQ2ciLyIoWd6kKrLKeiE9DrUIbg/yGMjLATf0m+/gmGT/cTq/f5lDnb2BP1EVx7t0wkF83j+Rq4O aXy8rCXMt1PK2HFaFeeER0c6fsarBcDYmPh7H231Tt 5nCIBR3V2F70N60tVBOUGzE1AaDqMlo1WU1i5aBEHgR2IL+WbiYnWx6oxjgX0GB6eDsP1teNFJik9W7V 4uOeiR5RoSAU32D0yNYlElYXam73a4Lt303eCL3J1zqv1H4Pz9rze9o314rlzLhJ1uG8kTGor+2dwLMd 7pATdKsqecpvBoESSg9x8nlXy+PYBbLT+YE28vCvvu MTEy9c8A0tJiAxzZex4rNIoV28Sxnm+0CxomCY4C0zliUi5gUQX6PRTYNC0UtZOMulMUJE7EPsYnEadv vo0I0NZgdwaYa46WAlhg+K1tL7LObqh1Fw7qo351EjFtJ+RkLvVaLhcn/PbywR22U9xGPBxZoDR8DfII MZJSXU+xKsNYxMJgXWIYKfcTJayxHOJQufIdhjaRyh [file] I3CvsnTYJ3C6Y+FL7aTPf+In1Va9LqtgG0akSrWXbaOUMcGP0CRCQYE4ZMSq== ID Date Data Source [id number] 10/08/2019 01:36:49 PM EDT [facility] CT HEAD WITHOUT CONTRAST [id number] RESU LTInterpreted by:Adolfo Martini MD10/08/2019 10:[address] HEAD WITHOUT CONTRAST [id number] CLINICAL INFORMATION: seizures,known mass TECHNIQUE: CT of the brain was performed without intravenous contrast. Automated dose lowering techniques and/or adjustment according to patient size were utilized for this examCOMPARISON: No available prior studies for comparison.FINDINGS:There is a left frontal lobe mass lesion measures approximately 3.9 cm with surrounding edema. There is mass effect upon the left hemisphere sulci. There are at least 2 foci of increased density concerning for small foci of hemorrhage one is noted in the inferior aspect and the other is noted in the anterior aspect of the mass. There is no definite midline shift. There is mass effect upon the left lateral ventricle which appears smaller compared to the right. There is no extra-axial fluid collection. The basal cisterns are patent.There is a status post left-sided craniotomy with postsurgical changes. There is no depressed calvarial fracture. Paranasal sinuses and mastoid air cells are clear. Bilateral orbits are grossly unremarkable.IMPRESSION: Left frontal lobe mass measures up to 3.8 cm with small foci of increased density surrounding the mass likely represent small foci of hemorrhage. There is surrounding edema and effacement of the left cerebral hemisphere sulci and mass effect upon the left lateral ventricle with no midline shift.This document has been electronically signed by Adolfo Martini MD on 10/08/2019 11:12 AM Name Value Range Interpretation Code Description Data Karoline rce(s) Supporting Document(s) ID Date Data Source [id number] 10/08/2019 11:52:51 AM [facility] Value Range Interpretation Code Description Data Karoline rce(s) Supporting Document(s) pH of Venous blood 7.46 7.36-7.41 [facility] Carbon dioxide [Partial pressure] in Venous blood 40 mmHg 40-45 [facility] Oxygen [Partial pressure] in Venous blood 33 mmHg [facility] Base excess standard in Venous blood by calculation 4 mmol/L [facility] Oxygen saturation Calculated from oxygen partial pressure in Venous blood 67 % 60-85 [facility] Lactate [Moles/volume] in Venous blood 1.6 mmol/L 0.5-2.2 [facility] Bicarbonate [Moles/volume] in Venous blood 29 mmol/L [facility] ID Date Data Source [id number] 10/08/2019 10:46:10 AM [facility] Name Value Range Interpretation Code Description Data Karoline rce(s) Supporting Document(s) Leukocytes [#/volume] in Blood by Automated count 12.1 10*3/uL 4-10 H [facility] Erythrocytes [#/volume] in Blood by Automated count 4.01 10*6/uL 4.1- 5.3 L [facility] Hemoglobin [Mass/volume] in Blood 12.4 g/dL 11.5-15.5 [facility] Hematocrit [Volume Fraction] of Blood by Automated count 36.3 % 3 6-45 [facility] Erythrocyte mean corpuscular volume [Entitic volume] by Auto mated count 90.6 fL 80-96 [facility] Erythrocyte mean corpuscular hemoglobin [Entitic mass] by Automated count 31.0 pg 27-33 [facility] Erythrocyte mean corpuscular hemoglobin concentration [Mass/volume] by Automated count 34.2 g/dL 32.0-[facility] Erythrocyte distribution width [Ratio] by Automated count 15.5 % 11.5-14.5 H [facility] Platelets [#/volume] in Blood by Automated count 216 10*3/uL 150-400 [facility] Differential cell count method - Blood [facility] Neutrophils/100 leukocytes in Blood by Automated count 92 % [facility] Lymphocytes/100 leukocytes in Blood by Automated count 5 % [facility] Monocytes/100 leukocytes in Blood by Automated count 2 % [facility] Eosinophils/100 leukocytes in Blood by Automated count 0 % [facility] Basophils/100 leukocytes in Blood by Automated count 1 % [facility] Neutrophils [#/volume] in Blood by Automated count 11.27 10*3/uL 1.8- 7.0 H [facility] Lymphocytes [#/volume] in Blood by Automated count 0.59 10*3/uL 1.2-4 .0 L [facility] Monocytes [#/volume] in Blood by Automated count 0.19 10*3/uL 0-0.8 [facility] Eosinophils [#/volume] in Blood by Automated count 0.01 10*3/uL 0-0.5 [facility] Basophils [#/volume] in Blood by Automated count 0.06 10*3/uL 0-0.2 [facility] Nucleated erythrocytes/100 leukocytes [Ratio] in Blood by Automated count 0 /100{WBCs} 0-0 [facility] ID Date Data Source [id number] 10/08/2019 11:27:23 AM [facility] Name Value Range Interpretation Code Description Data Karoline rce(s) Supporting Document(s) Phenytoin [Mass/volume] in Serum or Plasma 8.2 ug/ml 10-20 [facility] ID Date Data Source [id number] 10/08/2019 11:31:53 AM [facility] Name Value Range Interpretation Code Description Data Karoline rce(s) Supporting Document(s) Albumin [Mass/volume] in Serum or Plasma by Bromocresol green (BCG) dye binding method 3.5 g/dL 3.5-5.2 [facility] Bilirubin.total [Mass/volume] in Serum or Plasma 0.8 mg/dL <1.2 [facility] Bilirubin.direct [Mass/volume] in Serum or Plasma 0.2 mg/dL <0.3 [facility] Alkaline phosphatase [Enzymatic activity/volume] in Serum or Plasma 66 U/L 35-104 [facility] Aspartate aminotransferase [Enzymatic activity/volume] in Serum or Plasma 26 U/L <32 [facility] Alanine aminotransferase [Enzymatic activity/volume] in Seru m or Plasma 21 U/L <33 [facility] Protein [Mass/volume] in Serum or Plasma 5.5 g/dL 6.4-8.3 [facility] ID Date Data Source [id number] 10/08/2019 11:31:53 AM [facility] Value Range Interpretation Code Description Data Karoline rce(s) Supporting Document(s) Bicarbonate [Moles/volume] in Serum 28 mmol/L 22-29 [facility] Chloride [Moles/volume] in Serum or Plasma 102 mmol/L 98-107 [facility] Creatinine [Mass/volume] in Serum or Plasma 0.66 mg/dL 0.50-0.90 [facility] Glucose [Mass/volume] in Serum or Plasma 111 mg/dL 70-140 [facility] Potassium [Moles/volume] in Serum or Plasma 2.8 mmol/L 3.4-5.1 [facility] Results called to and read back by ODALYS MONTERROSO CLAMPER ADULT [id number] Sodium [Moles/volume] in Serum or Plasma 142 mmol/L 136-145 [facility] Urea nitrogen [Mass/volume] in Serum or Plasma 8 mg/dL 6-20 [facility] Anion gap 3 in Serum or Plasma 12 mmol/L 8-15 [facility] Osmolality of Serum or Plasma by calculation 293 mosm/kg 275-300 [facility] Creatinine/Urea nitrogen [Mass Ratio] in Serum or Plasma 12 [facility] Calcium [Mass/volume] in Serum or Plasma 8.6 mg/dL 8.6-10.0 [facility] Glomerular filtration rate/1.73 sq M pre dicted among non-blacks [Volume Rate/Area] in Serum or Plasma by Creatinine-based formula (MDRD) >6 0 [facility] Glomerular filtration rate/1.73 sq M pre dicted among blacks [Volume Rate/Area] in Serum or Plasma by Creatinine-based formula (MDRD) >60 [facility] ID Date Data Source [id number] 10/08/2019 11:31:53 AM [facility] Name Value Range Interpretation Code Description Data Karoline rce(s) Supporting Document(s) Thyrotropin [Units/volume] in Serum or Plasma 2.220 u[IU]/mL 0.270-4. 200 [facility] ID Date Data Source [id number] 10/10/2019 01:06:31 PM [facility] Name Value Range Interpretation Code Description Data Karoline rce(s) Supporting Document(s) Zonisamide [Mass/volume] in Serum or Plasma 6.7 ug/mL 10.0-40.0 L [facility] (NOTE)This test was developed and its pe rformance characteristicsdetermined by [employer]. It has not been cleared or approvedby the Food and Drug Administration. Detection Limit = 1.0Performed At: [facility] [place], [place] [id number] Ruiz MD Ph:[phone] ID Date Data Source [id number] 10/08/2019 12:47:01 PM [facility] Service Cmnt XXX-Imp : NoneMicroorganism XXX Cult : 2019 nCoV Real-Time RT-PCR: NOT DETECTEDTest performed using the [employer] Xpert Xpress SARS-CoV-2 assay. This test is only for use under the Food and Drug Administration's Emergency Use Authorization. Additional information is available on the following FDA websites for health care providers and patients. https://www.fda.gov/media/809094/download , https://www.nWay.gov/media/475229/download Name Value Range Interpretation Code Description Data Karoline rce(s) Supporting Document(s) ID Date Data Source [id number] 10/08/2019 10:05:00 AM EDT [facility] Service Cmnt XXX-Imp : NoneMicroorganism XXX Cult : 2019 nCoV Real-Time RT-PCR: NOT DETECTEDTest performed using the [employer] Xpert Xpress SARS-CoV-2 assay. This test is only for use under the Food and Drug Administration's Emergency Use Authorization. Additional information is available on the following FDA websites for health care providers and patients. https://www.fda.gov/media/510042/download , https://www.nWay.gov/[employer]/252568/download Name Value Range Interpretation Code Description Data Karoline rce(s) Supporting Document(s) Microorganism identified in Unspecified specimen by [facility] This lab was ordered by [facility] and reported by [facility]. ID Date Data Source [id number] 10/08/2019 02:13:34 PM EDT [facility] Name Value Range Interpretation Code Description Data Karoline rce(s) Supporting Document(s) Levetiracetam [Mass/volume] in Serum or Plasma 12-46 L [facility] ID Date Data Source [id number] 10/08/2019 05:29:00 AM EDT [address] [address] ---------NAME--------- NUMBER SEX AGE ADMIT DISC. XRAY# F/C TYPE MACY Brown [id number] F [id number] 10/08/19 [id number] E/R DATE OF : 1965 M/R# [id number] #: [id number] LOCATION: TRANSCRIBED: 10/08/19 5:[address] HEAD W/O CONTRAST [id number] COMPLETED:10/08/19 5:05 RLB [id number] Reason(s): Altered Mental Status Syncope PHYSICIAN: YOSELIN Carrera R R A D I O L O G Y R E P O R T ========PATIENT HISTORY:Altered Mental Status. Accumulated DLP-829.5 mGy*cm, Estimated DLP-826.6 mGy*cm.Verification of 2 patient identifiers performed. Patient has history of BrainCancer with recent tumor removal. -RLB / BONE (DICOM Hx)CT Head ( Brain )History:Altered Mental Status. Accumulated DLP-829.5 mGy*cm, Estimated DLP-826.6 mGy*cm.Verification of 2 patient identifiers performed. Patient has history of BrainCancer with recent tumor removal. -RLB (Hx) / BONE (DICOM Hx)Technique:CT HEAD W/O CONTRASTDose length product (mGy- cm): Not providedReformations: NoneContrast: WithoutComparison:No comparison study provided.Findings:Left-sided parietal craniotomy .There is moderate vasogenic edema pattern noted in the left frontal parietallobe with 6 mm hyperdensity in the posterior left frontal lobe.There is anill-defined 3.5 x 3.6 cm heterogeneous mass lesion associated with the edemaimage 18 series 203 within the frontal lobe is noted.There is partial effacement the left lateral ventricle and smoothing of thesulci.1 to 2 mm left to right midline shift identified.Ventricles and sulci are normal for age.The third and fourth ventricles are patent.Basal cisterns are unremarkable.Bony structures are unremarkable.Mastoid air cells are within normal limits.Paranasal sinuses are normal.IMPRESSIONS:Findings are consistent with a right frontal mass with vasogenic edema. 6 mmhyperdensity adjacent to the mass may represent area of calcification versusfocal hemorrhage.1 to 2 mm left to right midline shift identified.Please correlate with clinical history.While performing the above CT examination, radiation dose reduction wasaccomplished utilizing automated exposure control, adjusting of the mA and kVbased on the patient's body size and/or the use of imperative reconstructivetechniques.Electronically Signed By:Doron Delgadillo M.D. , RadiologistDate/Time: 10/08/19 05:29 Name Value Range Interpretation Code Description Data Karoline rce(s) Supporting Document(s) ID Date Data Source [id number] 10/13/2019 07:00:00 AM EDT [facility] [address] Name Value Range Interpretation Code Description Data Karoline rce(s) Supporting Document(s) Bacteria identified in Blood by Culture [facility] NO GROWTH AFTER 5 DAYS ID Date Data Source [id number] 10/14/2019 12:39:00 PM EDT [facility] Name Value Range Interpretation Code Description Data Karoline rce(s) Supporting Document(s) CULTURE BLOOD [facility] _CULTURE BLOOD_ TEST PERFORM ED AT [address] [address] CLIA# [id number] SEE SCANNED REPORT{ PRELIM ID Date Data Source [id number] 10/14/2019 12:39:00 PM EDT [facility] Name Value Range Interpretation Code Description Data Karoline rce(s) Supporting Document(s) CULTURE BLOOD [facility] _CULTURE BLOOD_ TEST PERFORM ED AT [address] [address] CLIA# [id number] SEE SCANNED REPORT{ PRELIM ID Date Data Source [id number] 10/08/2019 04:16:00 AM EDT [facility] Name Value Range Interpretation Code Description Data Karoline rce(s) Supporting Document(s) COMPREHENSIVE METABOLIC PANEL [facility] COMPREHENSIVE METABOLIC PANEL Sodium [Moles/volume] in Serum or Plasma 141 mEq/L 134 - 153 [facility] Potassium [Moles/volume] in Serum or Plasma 2.7 mEq/L 3.6 - 5.0 [facility] CALL/ READ BACK DR CH [facility] BY: ROBB [facility] DATE/TIME 414 AM [facility] spital Chloride [Moles/volume] in Serum or Plasma 99 mEq/L 98 - 107 [facility] Carbon dioxide, total [Moles/volume] in Serum or Plasma 30 MEQ/L 22 - 30 [facility] Glucose [Mass/volume] in Serum or Plasma 88 MG/DL 65 - 110 [facility] BUN 11 MG/DL 7 - 21 [facility] al Creatinine [Mass/volume] in Serum or Plasma 0.7 MG/DL 0.7 - 1.5 [facility] BUN/CREAT 16 8 - 27 [facility] Protein [Mass/volume] in Serum or Plasma 5.4 G/DL 6.3 - 8.2 L [facility] Albumin [Mass/volume] in Serum or Plasma 3.8 G/DL 3.9 - 5.0 L [facility] Globulin [Mass/volume] in Serum by calculation 1.6 GM/DL 2.4 - 3.2 L [facility] A/G RATIO 2.4 0.8 - 2.0 H [facility] Calcium [Mass/volume] in Serum or Plasma 9.4 MG/DL 8.4 - 10.2 [facility] Bilirubin.total [Mass/volume] in Serum or Plasma <0.7 MG/DL 0.2 - 1.3 [facility] Alkaline phosphatase [Enzymatic activity/volume] in Serum or Plasma 68 U/L 38 - 126 [facility] Aspartate aminotransferase [Enzymatic activity/volume] in Serum or Plasma 17 U/L 5 - 40 [facility] Alanine aminotransferase [Enzymatic activity/volume] in Seru m or Plasma 19 U/L 7 - 56 [facility] Anion gap 3 in Serum or Plasma 12.0 mmol/L 8.0 - 16.0 [facility] 54 [facility]/min [facility] AFR AMER GFR >60 mL/min [facility] Male GFR In terprentation 20-49 yrs >60 mL/min Normal 50-59 yrs >56 mL/min Normal 60-69 yrs >49 mL/min Normal 70-79yrs >42 mL/min Normal 80 and above >35 mL/min Normal Female GFR Interpretation 20-39 yrs >60 mL/min Normal 40-49 yrs >58 mL/min Normal 50-59 yrs >51 mL/min Normal 60-69 yrs >45 mL/min Normal 70-79 yrs >39 mL/min Normal 80 and above >32 mL/min Normal ID Date Data Source [id number] 10/08/2019 04:16:00 AM EDT [facility] Name Value Range Interpretation Code Description Data Karoline rce(s) Supporting Document(s) Lipase [Enzymatic activity/volume] in Serum or Plasma 46 U/L 13 - 60 [facility] ID Date Data Source [id number] 10/08/2019 04:14:00 AM [facility] Name Value Range Interpretation Code Description Data Karoline rce(s) Supporting Document(s) TROPONIN T <0.01 NG/ML 0.00 - 0.10 [facility] ospital TROPONIN T0.1 ng/ml Recommended as the c linical threshold value forTroponin T. ID Date Data Source [id number] 10/08/2019 03:49:00 AM [facility] Name Value Range Interpretation Code Description Data Karoline rce(s) Supporting Document(s) Lactate [Moles/volume] in Serum or Plasma 4.1 MMOL/L 0.2 - 2.2 [facility] CALL/ READ BACK DR CH [facility] BY: LSA [facility] DATE/TIME [id number] AM [facility] ospital ID Date Data Source [id number] 10/08/2019 03:48:00 AM [facility] Name Value Range Interpretation Code Description Data Karoline rce(s) Supporting Document(s) CBC W/AUTOMATED DIFF [facility] COMPLETE BLOOD COUNT Leukocytes [#/volume] in Blood by Automated count 12.1 10^3/uL 4.2 - 11.0 H [facility] Erythrocytes [#/volume] in Blood by Automated count 3.91 10^6/uL 4. 20 - 5.40 L [facility] Hemoglobin [Mass/volume] in Blood 11.9 g/dL 12.0 - 16.0 L [facility] Hematocrit [Volume Fraction] of Blood by Automated count 35.6 % 3 7.0 - 47.0 L [facility] Erythrocyte mean corpuscular volume [Entitic volume] by Auto mated count 91.0 fL 81.0 - 101 [facility] Erythrocyte mean corpuscular hemoglobin [Entitic mass] by Automated count 30.4 pg 27.0 - 34.0 [facility] Erythrocyte mean corpuscular hemoglobin concentration [Mass/volume] by Automated count 33.4 g/dL 31.0 - 36.0 [facility] Erythrocyte distribution width [Ratio] by Automated count 13.9 % 11.5 - 14.5 [facility] Platelets [#/volume] in Blood by Automated count 196 10^3/uL 150 - 45 0 [facility] Platelet mean volume [Entitic volume] in Blood by Automated count 9.3 fL 7.4 - 10.4 [facility] Neutrophils/100 leukocytes in Blood by Automated count 73.0 % 37. 0 - 80.0 [facility] Lymphocytes/100 leukocytes in Blood by Manual count 18.5 % 25.0 - 40.0 L [facility] Monocytes/100 leukocytes in Blood by Automated count 5.3 % 3.0 - 8.0 [facility] Eosinophils/100 leukocytes in Blood by Automated count 0.2 % 0.0 - 7.0 [facility] Basophils/100 leukocytes in Blood by Automated count 0.4 % 0.0 - 2.5 [facility] %IG 2.6 % 0.0 - 0.0 [facility] %NRBC 0.0 % 0.0 - 0.0 [facility] al Neutrophils [#/volume] in Blood by Automated count 8.83 10^3/uL 2.00 - 6.90 H [facility] Lymphocytes [#/volume] in Blood by Automated count 2.23 10^3/uL 0.60 - 3.40 [facility] Monocytes [#/volume] in Blood by Automated count 0.64 10^3/uL 0.00 - 0.90 [facility] Eosinophils [#/volume] in Blood by Automated count 0.02 10^3/uL 0.00 - 0.70 [facility] Basophils [#/volume] in Blood by Automated count 0.05 10^3/uL 0.00 - 0.20 [facility] #IG 0.31 10^3/uL 0.00 - 0.10 H [facility] #NRBC 0.00 10^3/uL 0.00 - 0.00 [facility] MANUAL DIFF NOT INDICATED [facility] RBC MORPH NOT INDICATED [facility] spital Procedure Social History Code Duration Value Status Description Data Source(s ) Alcohol intake 01/29/2020 12:00:00 AM EST Ex-drinker (finding) comp leted Ex- drinker (finding) [facility] Tobacco use and exposure 01/29/2020 12:00:00 AM EST Never used co mpleted Never used [facility] Smoking 01/29/2020 12:00:00 AM EST Never smoker completed Never s wiker [facility] Alcohol intake 01/15/2020 12:00:00 AM EST Ex-drinker (finding) comp leted Ex- drinker (finding) [facility] Alcohol intake 12/19/2019 12:00:00 AM EDT Ex-drinker (finding) comp leted Ex- drinker (finding) [facility] Alcohol intake 12/03/2019 12:00:00 AM EDT Ex-drinker (finding) comp leted Ex- drinker (finding) [facility] Alcohol intake 11/27/2019 12:00:00 AM EDT Ex-drinker (finding) comp leted Ex- drinker (finding) [facility] Alcohol intake 10/15/2019 12:00:00 AM EDT Ex-drinker (finding) comp leted Ex- drinker (finding) [facility] Vital Signs ID Date Data Source [id number] 01/01/2020 03:43:38 PM [facility] Name Value Range Interpretation Code Description Data Source(s) WEIGHT RECORDED 220 lb 220 lb [facility] Body height Measured 65 in 65 in [facility] TRANSFER FROM [facility] ID Date Data Source [id number] 11/03/2019 10:19:16 PM [facility] Name Value Range Interpretation Code Description Data Source(s) Body height Measured 66 in 66 in [facility] ID Date Data Source [id number] 10/19/2019 12:08:48 PM [facility] Name Value Range Interpretation Code Description Data Source(s) WEIGHT RECORDED 222.1 lb 222.1 lb [facility] Body height Measured 68 in 68 in [facility] WEIGHT RECORDED 222.1 lb 222.1 lb [facility] Body height Measured 68 in 68 in [facility] Patient Treatment Plan of Care Planned Activity Planned Date Details Description Data Source (s) traZODone HCl 50 MG 04/15/2020 12:00:00 AM EST [facility]) Gait/Transfer Belt 04/15/2020 12:00:00 AM EST [facility] ([facility]) Calcium Carbonate-Vitamin D 600-200 MG-UNIT 04/15/2020 12:00:00 AM EST [facility] ([facility]) Underpads Extra Large 04/15/2020 12:00:00 AM EST [facility] ([facility]) Depend Silhouette Briefs L/XL 04/15/2020 12:00:00 AM EST [facility] ([facility]) Zonisamide 100 MG 04/15/2020 12:00:00 AM EST [facility] ([facility]) Omeprazole 20 MG 04/15/2020 12:00:00 AM EST [facility]) Keppra 500 MG 04/15/2020 12:00:00 AM EST [facility] ([facility]) Dexamethasone 4 MG 04/15/2020 12:00:00 AM EST [facility] ([facility]) Ergocalciferol [id number] UNT Oral Capsule 12/28/2019 12:00:00 AM [facility] POLYETHYLENE GLYCOL 3350 142 MG/ML Oral Solution 12/25/2019 09:00:0 0 AM [facility] 0.4 ML Enoxaparin sodium 100 MG/ML Prefilled Syringe 09:00:00 AM [facility] 0.4 ML Enoxaparin sodium 100 MG/ML Prefilled Syringe 10/20/2 020 12:00:00 AM [facility] Docusate Sodium 56.6 MG/ML Enema 12/24/2019 10:53:45 AM [facility] Calcium Citrate 950 MG Oral Tablet 12/24/2019 12:00:00 AM [facility] Cholecalciferol 1000 UNT Oral Tablet 12/24/2019 12:00:00 AM [facility] Cholecalciferol 1000 UNT Oral Tablet 12/24/2019 12:00:00 AM [facility] Calcium Citrate 950 MG Oral Tablet 12/24/2019 12:00:00 AM [facility] sodium chloride (preservative free) 0.9 % flush 10 mL 12/22/2019 04:40:00 PM [facility] ospital lidocaine (XYLOCAINE) 1 % injection 5 mL 12/22/2019 04:40:00 PM [facility] dextrose 50 % IV solution 25 mL 12/21/2019 01:33:36 PM [facility] Glucagon 1 MG Injection 12/21/2019 01:33:36 PM [facility] Glucose 0.417 MG/MG Oral Gel 12/21/2019 01:33:36 PM [facility] sennosides, LONG-TERM 8.6 MG Oral Tablet 12/20/2019 01:00:07 AM [facility] traZODone HCl 50 MG 10/29/2019 01:00:00 AM [facility]) Temozolomide 20 MG 10/26/2019 01:00:00 AM [facility]) Temozolomide 140 MG 10/26/2019 01:00:00 AM [facility]) temozolomide 20 MG Oral Capsule 10/23/2019 12:00:00 AM [facility] temozolomide 140 MG Oral Capsule 10/23/2019 12:00:00 AM [facility] Zonisamide 100 MG 10/22/2019 01:00:00 AM [facility]) Bactrim DS 800-160 MG 10/22/2019 01:00:00 AM [facility]) Prochlorperazine Maleate 10 MG 10/22/2019 01:00:00 AM [facility]) Ondansetron HCl 8 MG 10/22/2019 01:00:00 AM [facility]) Omeprazole 40 MG 10/22/2019 01:00:00 AM [facility]) LevETIRAcetam 500 MG 10/22/2019 01:00:00 AM [facility]) Dexamethasone 4 MG 10/22/2019 01:00:00 AM [facility]) temozolomide 20 MG Oral Capsule 10/19/2019 12:00:00 AM [facility] Ondansetron 4 MG Oral Tablet 10/15/2019 12:00:00 AM [facility] Sulfamethoxazole 800 MG / Trimethoprim 160 MG Oral Tab let 10/13/2019 12:00:00 AM [facility] ospital Dexamethasone 4 MG Oral Tablet 10/12/2019 12:00:00 AM [facility] Levetiracetam 500 MG Oral Tablet 10/12/2019 12:00:00 AM [facility] Omeprazole 40 MG Delayed Release Oral Capsule 10/12/2019 12:00:00 A M [facility]
[2020-04-17] MEDS ORDERED: NS 1,000 ML IV ONE (21:45)
[2020-04-17] MEDS ORDERED: ACETAMINOPHEN 650 MG SUPP PR ONE (21:45)
[2020-04-17] MEDS ORDERED: LIDOCAINE 2% 5ML JELLY UROJET TOP ONE (21:45)
[2020-04-17] MEDS ORDERED: IBUPROFEN 800 MG TAB PO ONE (22:00)
[2020-04-17] MEDS ORDERED: PIPERACILLIN/TAZOBACTAM SOD 4.5 GM in D5W MINI-BAG PLUS 50 ML IV ONE (22:00)
[2020-04-17 22:14] LABS: HEMATOCRIT 34.3 % (36.0-47.0); HEMOGLOBIN 10.9 g/dl (12.0-15.5); MEAN CORPUSCULAR HEMOGLOBIN 31.1 pg (27.0-33.0); MEAN CORPUSCULAR HGB CONC 31.8 g/dl (32.0-36.5); MEAN CORPUSCULAR VOLUME 97.7 fl (80.0-96.0); RED BLOOD COUNT 3.51 10^6/uL (4.00-5.40); WHITE BLOOD COUNT 6.2 10^3/uL (4.0-10.0)
[2020-04-17 22:24] LABS: INR 1.08; PROTHROMBIN TIME 14.2 SECONDS (12.5-14.3)
[2020-04-17] MEDS ORDERED: NS IV ONE (22:30)
[2020-04-17] MEDS ORDERED: IBUPROFEN 100 MG/5 ML SUSP UDC DYE FREE PO ONE (22:30)
[2020-04-17] MEDS ORDERED: KEPP1TAB PO (22:44)
[2020-04-17] MEDS ORDERED: PROC10TA4 PO (22:44)
[2020-04-17] MEDS ORDERED: ZONI100C17 PO (22:44)
[2020-04-17] MEDS ORDERED: OMEP-218 PO (22:44)
[2020-04-17] MEDS ORDERED: DEXA4TA PO (22:44)
[2020-04-17] MEDS ORDERED: TRAZ-186 PO (22:44)
[2020-04-17] MEDS ORDERED: OYST500T91 PO (22:44)
[2020-04-17] MEDS ORDERED: ENOX40IN3 SC (22:44)
[2020-04-17] MEDS ORDERED: TEMO20CA21 PO (22:47)
[2020-04-17] MEDS ORDERED: VITA50005 PO (22:47)
[2020-04-17] MEDS ORDERED: TEMO140C14 PO (22:47)
--- NOTE | 2020-04-17 22:47 | REPVR ---
PROCEDURE INFORMATION: Exam: XR Chest, 1 View Exam date and time: 04/17/20 (10:13pm) Age: 54 years old Clinical indication: AMS. SOB. TECHNIQUE: Imaging protocol: Portable CXR Views: 1 view COMPARISON: No relevant prior studies available FINDINGS: Lungs: Unremarkable. No consolidation. Pleural spaces: Unremarkable. No pleural effusions. No pneumothorax. Heart/Mediastinum: Unremarkable. No cardiomegaly. Bones/joints: Dextroscoliosis of the thoracic spine. IMPRESSION: No acute findings. Electronically signed by: Kathy Cortez On 04/17/2020 22:46:54 PM
[2020-04-17 22:49] LABS: PLATELET COUNT, AUTOMATED 78 10^3/uL (150-450)
[2020-04-17] MEDS ORDERED: LORazepam 2 MG/ML VIAL IV STA ×2 (22:50→23:33)
[2020-04-17] MEDS ORDERED: PATIENT COMMENT (22:51)
[2020-04-17 22:53] LABS: LYMPHOCYTES 2 % (16-44); METAMYELOCYTES 3 % (0-0); NEUTROPHILS 82 % (28-66)
[2020-04-17 22:54] LABS: ALBUMIN 1.9 GM/DL (3.2-5.2); ALT/SGPT 129 U/L (12-78); AMYLASE 56 U/L (25-115); BILIRUBIN,DIRECT 0.5 MG/DL (0.0-0.2); BLOOD UREA NITROGEN 43 MG/DL (7-18); CALCIUM LEVEL 9.4 MG/DL (8.5-10.1); CARBON DIOXIDE LEVEL 19 MEQ/L (21-32); CHLORIDE LEVEL 102 MEQ/L (98-107); CK-MB VALUE MASS < 1.0 NG/ML (<3.6); CPK CREATINE PHOSPHOKINASE 34 U/L (26-192); CREATININE FOR GFR 1.44 MG/DL (0.55-1.30); GLOMERULAR FILTRATION RATE 40.7 (>51); GLUCOSE, FASTING 267 MG/DL (70-100); LIPASE 198 U/L (73-393); MB/CK RELATIVE INDEX 2.94 (< OR =4); POTASSIUM SERUM 4.1 MEQ/L (3.5-5.1); SODIUM LEVEL 134 MEQ/L (136-145); TOTAL PROTEIN 6.3 GM/DL (6.4-8.2); TROPONIN I < 0.02 NG/ML (< 0.10)
[2020-04-17 22:57] LABS: PLATELET CLUMPS SMALL AMT; PLATELET ESTIMATE DECREASED (NORMAL); TOXIC VACUOLATION 2+
[2020-04-17] MEDS ORDERED: LORazepam 2 MG/ML VIAL As Ordered ONE ×2 (22:57→23:36)
[2020-04-17 22:59] LABS: RSV AMPLIFICATION NEGATIVE (NEGATIVE)
--- OUTSIDE RECORDS SUMMARY | 2020-04-17 23:07 | CCD ---
Author Author [facility] Organization [facility] Address Unknown Phone Unavailable Care Team Providers [facility] Health Care Technician Name Role Phone Steve Almazan MD Unavailable [...] Unavailable LARRY, P JRE MD Unavailable Unavailable LARRY, P JER MD [...] DAVI SELF MD Unavailable Unavailable DAVI SELF CHRISTINOCENTE [...] VENERUS, Jem SR MD Unavailable Unavailable VENERUS, eJm SR MD Unavailable Unavailable VENERUS, Jem SR [...] is protected by Article 27-F of the [facility] Public Health law. If you continue you may have access to information: Regarding HIV / AIDS; Provided by facilities licensed or operated by the [facility] Office of Mental Health; or Provided by the [facility] Office for People With Developmental Disabilities. If such information is present, then the following [facility] mandated warning applies: This information has [...] law may result in a fine or snf sentence or both. A general authorization for the release of medical or other information is NOT sufficient authorization for further disc losure. Allergies and Adverse Reactions Type Description Substance Reaction Status Data Source(s ) Latex Latex Latex active [facility]SMART ([facility]) BRANDNAME MARLI [facility] DRUG INGREDI LATEX Latex [facility] Encounters Encounter Providers Location Date Indications Data Source(s ) Outpatient Attender: JER LARRY MD 04/29/2020 12:00: 00 AM [facility] Outpatient Attender: VICKIE DE OLIVEIRA MD 04/28/2020 12:00:00 AM [facility] 04/15/2020 12:00:00 AM EST - 021 03:22:19 PM EST NETSMART ([facility]) Outpatient Attender: VICKIE DE OLIVEIRA MD 04/02/2020 12:00:00 AM [facility] Outpatient Attender: JER LARRY MD 03/25/2020 12:00: 00 AM [facility] Outpatient Attender: VICKIE DE OLIVEIRA MD 01/30/2020 12:00:00 AM [facility] Outpatient Attender: VICKIE DE OLIVEIRA MD 01/30/2020 12:00:00 AM [facility] Outpatient Referrer: JER LARRY MD 01/29/2020 12:00:00 AM EST Other fracture of right lower leg, subsequent encounter for closed fracture with routine healing [facility] Other fracture of right lower leg, subse quent encounter for closed fracture with routine healing Outpatient Attender: JER LARRY MD [id number] 01/29/2020 12:00:00 AM EST Unspecified fracture of shaft of unspecified tibia, subsequent encounter for closed fracture with routine healing [facility] Unspecified fracture of shaft of unspeci fied tibia, subsequent encounter for closed fracture with routine healing Outpatient Referrer: LEAH MOHR 01/29/2020 12:0 0:00 AM EST Malignant neoplasm of brain, unspecified [facility] Malignant neoplasm of brain, unspecified Outpatient Attender: LEAH MOHR 01/29/2020 12:00:00 A M [facility] Outpatient Referrer: JER LARYR MD 01/15/2020 12:00:00 AM EST Other fracture of right lower leg, subsequent encounter for closed fracture with routine healing [facility] Other fracture of right lower leg, subse quent encounter for closed fracture with routine healing Outpatient Attender: JER LARRY MD [id number] 01/15/2020 12:00:00 AM EST Unspecified fracture of shaft of unspecified tibia, subsequent encounter for closed fracture with routine healing [facility] Unspecified fracture of shaft of unspeci fied tibia, subsequent encounter for closed fracture with routine healing Outpatient Attender: JER LARRY MD 01/08/2020 12:00: 00 AM [facility] Outpatient Attender: VICKIE DE OLIVEIRA MD 01/07/2020 12:00:00 AM [facility] Outpatient Attender: LEAH MOHR 01/01/2020 12:00:00 A [facility] Outpatient Referrer: LEAH MOHR 01/01/2020 12:00:00 A [facility] Inpatient Attender: EPI Brown DAttender: Baltazar Garnetttender: BLANCHE DENGAdmitter: EPI BEST MDReferrer: Oseas Merida MDConsultant: JER LARRY MD [id number] 12/19/2019 12:00:00 AM EDT - 12/24/2019 03:30:00 PM EDT Unspecified fracture of shaft of unspeci fied tibia, initial encounter for closed fracture [facility] Unspecified fracture of shaft of unspeci fied tibia, initial encounter for closed fracture Patient discharged. Outpatient Attender: LEAH BRADSHAWEReferrer: SHIV KLEIN [id number] 12/04/2019 12:00:00 AM EDT - 12/04/2019 03:26:02 PM EDT [facility] Outpatient Attender: VICKIE DE OLIVEIRA MD [id number] 12/03/19 12:00:00 AM EDT - 12/03/2019 02:28:48 PM EDT Malignant neoplasm of brain, rustified [facility] Malignant neoplasm of brain, unspecified Outpatient Attender: Kate Carvajaljoselin [id number] 11/26 12:00:00 AM EDT - 11/28/2019 08:20:37 AM EDT Neoplasm of unspecified behavior of [facility] Neoplasm of unspecified behavior of brai n Outpatient Attender: SUDHIR CARBAJALMIKJairo . [id number] 11/15/2019 12:40:21 PM EDT [facility] Outpatient Attender: LEAH Mcbrideferrer: SHIV KLEIN [id number] 11/06/2019 12:00:00 AM EDT - 11/06/2019 02:56:14 PM EDT on [facility] on treat Outpatient Referrer: SHIV KLEIN 11/06/2019 12:00:00 AM EDT [facility] Outpatient Attender: LEAH Florianrer: SHIV KLEIN [id number] 10/30/2019 12:00:00 AM EDT - 10/30/2019 04:32:01 PM EDT on [facility] on treat Outpatient Attender: VICKIE DE OLIVEIRA MD 10/29/2019 12:00:00 AM EDT [facility] Outpatient Attender: VICKIE DE OLIVEIRA MD 10/29/2019 12:00:00 AM T [facility] Outpatient Attender: JOSE BATES [id number] 0 10/25/2019 09:31:44 AM EDT [facility] Outpatient Referrer: SHIV KLEIN 10/23/2019 12:00:00 AM EDT [facility] billing Outpatient Attender: JOSE BATES [id number] 0 10/22/2019 11:43:06 AM EDT [facility] 10/22/2019 01:00:00 AM EDT - 020 01:13:33 PM EDT [facility]) Outpatient Attender: VICKIE DE OLIVEIRA MD [id number] 10/15/19 12:00:00 AM EDT - 10/15/2019 11:16:56 AM EDT Neoplasm of unspecified behavior of [facility] Neoplasm of unspecified behavior of brai n Outpatient Attender: CHRIST SELF MD [id number] 10/12/19 20 12:00:00 AM EDT - 10/12/2019 12:11:56 PM EDT Malignant neoplasm of brain, unspecified [facility] Malignant neoplasm of brain, unspecified Outpatient 10/08/2019 04:52:00 AM EDT [facility] Emergency Attender: JORDAN CH MDConsultant: Radha May am PA-C 10/08/2019 03:07:00 AM EDT - 10/08/2019 07:15:00 AM EDT [facility] Patient discharged. Inpatient Attender: Ce Johnson r: SHIV HOLLYAAttender: JACKIE CHOW .Attender: Kev Sellers MDAdmitter: JACKIE CHOW .Referrer: JORDAN CH MD [id number] 10/08/2019 12:00:00 AM EDT - 10/12/2019 04:26:00 PM ED T Unspecified convulsions [facility] Unspecified convulsions Patient discharged. Medications Medication Brand Name Start Date Product Form Dose Route Admi nistrative Instructions Pharmacy Instructions Status Indications Reaction Description Data Source(s) traZODone HCl 50 MG traZODone HCl 04/15/2020 12:00:00 AM EST 50. 0 {mg} completed [facility]SMART ([facility]) Omeprazole 20 MG Omeprazole 04/15/2020 12:00:00 AM EST 20.0 {mg} completed [facility] ([facility]) Keppra 500 MG Keppra 04/15/2020 12:00:00 AM EST 500.0 {mg} completed [facility] ([facility]) Dexamethasone 4 MG Dexamethasone 04/15/2020 12:00:00 AM EST 4.0 {mg} completed [facility]SMART ([facility]) Depend Silhouette Briefs L/XL Depend Silhouette Briefs L/XL 04/15/2020 12:00:00 AM EST completed NETSMAR T ([facility]) Underpads Extra Large Underpads Extra Large 04/15/2020 12:00:00 AM EST completed [facility]SMART ([facility]) Calcium Carbonate-Vitamin D 600-200 MG-UNIT Calcium Carbonat e-Vitamin D 04/15/2020 12:00:00 AM EST completed [facility] ([facility]) Gait/Transfer Belt Gait/Transfer Belt 04/15/2020 12:00:00 AM EST completed [facility] ([facility]) Zonisamide 100 MG Zonisamide 04/15/2020 12:00:00 AM EST 2.0 {tab let} completed [facility]SMART ([facility]) Ergocalciferol 39034 UNT Oral Capsule Vi tamin D (Ergocalciferol) 1.25 MG (58447 UT) Oral Capsule (ERGOCALCIFEROL) Vitamin D (Ergocalciferol) 1.25 MG (5000 0 UT) Oral Capsule (ERGOCALCIFEROL) 12/28/2019 12:00:00 AM EDT 48260 U Ora l active Take 1 capsule by mouth every 7 (seven) days for 8 doses [facility] POLYETHYLENE GLYCOL 3350 142 MG/ML Oral Solution [...] due to potential increased risk for aspiration.
[facility] Medication administered onsite 0.4 ML Enoxaparin sodium 100 MG/ML Prefi lled Syringe enoxaparin sodium (LOVENOX) injection 40 mg enoxaparin sodium (LOVENOX) injection 40 mg 12/25/2019 09:00:00 AM EDT 40 mg Subcutaneous active 40 mg, Subcutaneous, Daily Standard, First dose on Tue12/25/19 at 0900, For 30 days
For 1-2 weeks, till pt is mobile
[facility] Medication administered onsite 0.4 ML Enoxaparin sodium 100 MG/ML Prefi lled Syringe Enoxaparin Sodium 40 MG/0.4ML Subcutaneous Solution (LOVENOX) Enoxaparin Sodium 40 MG/0.4ML Subcutaneous Solution (LOVENOX) 12/25/2019 12:00:00 AM EDT 40 mg Subcutaneous active Inject 0.4 mLs into the s kin daily [facility] Docusate Sodium 56.6 MG/ML Enema docusate sodium (ENEM EEZ) enema 5 mL docusate sodium (ENEMEEZ) enema 5 mL 12/24/2019 10:53:45 AM EDT 5 mL Rectal active 5 mL, Rectal, Daily PRN, Con stipation, Starting 12/24/19 at 1053, For 30 days [facility] Medication administered onsite Calcium Citrate 950 MG Oral Tablet Calci um Citrate 950 MG Oral Tablet (CALCITRATE) Calcium Citrate 950 MG Oral Tablet (CALCITRATE) 2019 12:00:00 AM EDT 475 mg Oral aborted Take 0.5 tablets by mouth Two Times Daily [facility] Calcium Citrate 950 MG Oral Tablet Calci um Citrate 950 MG Oral Tablet (CALCITRATE) Calcium Citrate 950 MG Oral Tablet (CALCITRATE) 2019 12:00:00 AM EDT 475 mg Oral active Take 0.5 tablets by mouth Two Times Daily [facility] Cholecalciferol 1000 UNT Oral Tablet Vit golden D3 25 MCG (1000 UT) Oral Tablet (CHOLECALCIFEROL) Vitamin D3 25 MCG (1000 UT) Oral Tablet (CHOLECALCIFER OL) 12/24/2019 12:00:00 AM EDT 2000 U Oral active Take 2 tablets by mouth daily [facility] Cholecalciferol 1000 UNT Oral Tablet Vit golden D3 25 MCG (1000 UT) Oral Tablet (CHOLECALCIFEROL) Vitamin D3 25 MCG (1000 UT) Oral Tablet (CHOLECALCIFER OL) 12/24/2019 12:00:00 AM EDT 2000 U Oral aborted Take 2 tablets by mouth daily [facility] Acetaminophen 325 MG Oral Tablet acetaminophen (TYLENO L) tablet 650 mg acetaminophen (TYLENOL) tablet 650 mg 12/23/2019 08:11:36 AM EDT 65 0 mg Oral active 650 mg, Oral, E very 4 hours PRN, Mild Pain (Pain Scale Score 1- 3), Starting 12/23/19 at 0811, For 3 days
Maximum daily dose of acetaminophen is 3,000 mg from all sources in 24 hours.
[facility] Medication administered onsite Oxycodone Hydrochloride 5 MG [...] only) require Pain Service consultation and approval.
[facility] Medication administered onsite potassium phosphate infusion 6 mmol/100 mL (premix) 12/23/2019 07:00:00 AM EDT 6 mmol Intravenous completed 6 mmol, Intravenous, at 25 mL/hr, Once, 12/23/19 at 0700, For 1 dose
Slower infusion rates (e.g. over 4 hours) are recommended in patients with renal impairment and/or less severe hypophosphatemia. Product contains 8.8 mEq of potassium.
[facility] Medication administered onsite lidocaine (XYLOCAINE) 1 % injection 5 mL [id number] 12/22/2019 04:40:00 PM EDT 5 mL Subcutaneous active 5 m L, Subcutaneous, Once PRN, For MIDLINE Catheter insertion, Starting 12/22/19 at 1640, For 30 days [facility] Medication administered onsite sodium chloride (preservative free) [...] Extended Dwell/Midline Peripheral Catheter.
[Order 3 End] [facility] Medication administered onsite potassium chloride (KLOR-CON) packet 40 mEq [id number] 12/22/2019 09:00:00 AM EDT 40 meq Oral completed 40 mEq , Oral, 2 Times Daily, First dose on Tue12/22/19 at 0900, For 2 doses
Mix in 4 ounces of water or juice
[facility] Medication administered onsite insulin lispro (HumaLOG) injection LOW DOSE EATING INS ULIN patients 1-8 Units [id number] 12/21/2019 06:00:00 PM EDT U Subcutaneous active 1-8 Units, Subcutaneous, Three Times Daily-With Meals, First dose on Tue12/21/19 at 1800, For 30 days
Nursing MUST open the 'SQ Insulin Dosing Charts' Sidebar Report, or, the Patient Summary or Summary Report within the ED.
[facility] Medication administered onsite dextrose 50 % IV solution 25 mL [id number] 12/21/2019 01:33:36 PM E DT 25 mL Intravenous active 25 mL, Intrav enous, PRN, Other, blood glucose <55, Starting Tue12/21/19 at 1333, For 30 days
Not for midline administration.
[facility] Medication administered onsite Glucagon 1 MG Injection glucagon (human recombinant) ( GLUCAGEN) injection 1 mg glucagon (human recombinant) (GLUCAGEN) injection 1 mg 12/21/2019 01:33:36 PM EDT 1 mg Intramuscular active 1 mg, Intramuscular, PRN, for glucose <55 without IV access, Starting Tue12/21/19 at 1333, For 30 days [facility] Medication administered onsite Glucose 0.417 MG/MG Oral Gel glucose (GLUTOSE) 40 % or al gel 15 g glucose (GLUTOSE) 40 % oral gel 15 g 12/21/2019 01:33:36 PM EDT 15 g Oral active 15 g, Oral, PRN, Low blood s ugar, for gluose 55-69 mg/dl and able to take PO, Starting Tue12/21/19 at 1333, For 30 days [facility] Medication administered onsite Calcium Citrate 950 MG Oral Tablet calcium citrate (CA LCITRATE) tablet 475 mg calcium citrate (CALCITRATE) tablet 475 mg 12/21/2019 09:00:00 AM EDT 475 mg Oral active 475 mg, Oral, 2 Times Daily, First dose on Tue12/21/19 at 0900, For 30 days [facility] Medication administered onsite Ascorbic Acid 500 MG Oral Tablet vitamin C (ASCORBIC A DOMINICK) tablet 500 mg vitamin C (ASCORBIC ACID) tablet 500 mg 12/21/2019 09:00:00 AM EDT 500 mg O ral active 500 mg, Oral, Daily Standard, First dose on Tue12/21/19 at 0900, For 30 days [facility] Medication administered onsite 0.3 ML Enoxaparin sodium [...] hours after epidural catheter has been removed.
[facility] Medication administered onsite Ergocalciferol 00716 UNT Oral Capsule vi tamin D (ERGOCALCIFEROL) capsule 50,000 Units vitamin D (ERGOCALCIFEROL) capsule 50,000 Units 2019 09:00:00 AM EDT 61563 U Oral active 50,000 U nits, Oral, Every 7 days, First dose on Tue12/21/19 at 0900, For 30 days [facility] Medication administered onsite Cholecalciferol 1000 UNT Oral Tablet vit golden D3 (CHOLECALCIFEROL) tablet 2,000 Units vitamin D3 (CHOLECALCIFEROL) tablet 2,000 Units 2019 09:00:00 AM EDT 2000 U Oral active 2,000 Un its, Oral, Daily Standard, First dose on Tue12/21/19 at 0900, For 30 days
25 mcg vitamin D3 = 1,000 international units vitamin D3.
[facility] Medication administered onsite magnesium sulfate in dextrose 5 % infusion (premix) 1 g 0409 -[id number] 12/21/2019 07:15:00 AM EDT 1 g Intravenous completed 1 g, Intravenous, Administer over 60 Minutes, Once, Tue12/21/19 at 0715, For 1 dose [facility] Medication administered onsite Cefazolin 2000 MG Injection ceFAZolin (ANCEF) IVPB 2 g in dextrose (premix) ceFAZolin (ANCEF) IVPB 2 g in dextrose (premix) 12/21/2019 01:00:00 AM EDT 2 g Intravenous completed 2 g, Int ravenous, Administer over 30 Minutes, Every 8 hours, First dose on Tue12/21/19 at 0100, For 16 hours
3 gram for patients weighing >/= to 120 kg
[facility] Medication administered onsite fentaNYL (SUBLIMAZE) (PF) injection 25 mcg [id number] 12/20/2019 06:37:26 PM EDT 25 ug Intravenous aborted 25 m cg, Intravenous, Every 5 min PRN, Severe Pain (Pain Scale Score 7-10), Starting Lynsey 12/20/19 at 1837, For 10 doses, [facility] Medication administered onsite HYDROmorphone (DILAUDID) injection 0.52 mg [id number] 12/20/2019 06:37:26 PM EDT 0.5 mg Intravenous completed 0. 52 mg (rounded from 0.5 mg), Intravenous, Every 5 min PRN, Severe Pain (Pain Scale Score > 6), Starting Lynsey 12/20/19 at 1837, For 4 doses, Recovery [facility] Medication administered onsite pantoprazole 40 MG Delayed Release Oral Tablet pantoprazole (PROTONIX) EC tablet 40 mg pantoprazole (PROTONIX) EC tablet 40 mg 12/20/2019 09:00:00 AM E DT 40 mg Oral active 40 mg, Ora l, Daily Standard, First dose on Lynsey 12/20/19 at 0900, For 30 days
Do not crush or chew
[facility] Medication administered onsite Levetiracetam 500 MG Oral Tablet levETIRAcetam (KEPPRA ) tablet 1,000 mg levETIRAcetam (KEPPRA) tablet 1,000 mg 12/20/2019 09:00:00 AM EDT 1000 mg Oral active 1,000 mg, Oral , 2 Times Daily, First dose on Lynsey 12/20/19 at 0900, For 30 days [facility] Medication administered onsite zonisamide 100 MG Oral Capsule zonisamide (ZONEGRAN) c apsule 200 mg zonisamide (ZONEGRAN) capsule 200 mg 12/20/2019 09:00:00 AM EDT 200 mg Oral active 200 mg, Oral, 2 Times Daily, First dose on Lynsey 0 at 0900, For 30 days [facility] Medication administered onsite Dexamethasone 4 MG Oral Tablet dexamethasone (DECADRON ) tablet 4 mg dexamethasone (DECADRON) tablet 4 mg 12/20/2019 09:00:00 AM EDT 4 mg Oral active 4 mg, Oral, 2 Times Daily With Meals, First dose on Lynsey 12/20/19 at 0900, For 30 days
Take with food.
[facility] Medication administered onsite potassium chloride (K-DUR) dissolvable tablet 40 mEq [id number] 38-90 12/20/2019 07:30:00 AM EDT 40 meq Oral completed 40 mEq, Oral, Once, Lynsey 12/20/19 at 0730, For 1 dose
May be dissolved in water for patients with a G-Tube or unable to swallow. If concern for clogging G-Tube, may contact Pharmacy to switch formulation to a powder packet.
[facility] Medication administered onsite Oxycodone Hydrochloride 5 MG [...] only) require Pain Service consultation and approval.
[facility] Medication administered onsite potassium chloride (K-DUR) dissolvable tablet 40 mEq [id number] 38-90 12/20/2019 01:15:00 AM EDT 40 meq Oral completed 40 mEq, Oral, Once, Lynsey 12/20/19 at 0115, For 1 dose
May be dissolved in water for patients with a G-Tube or unable to swallow. If concern for clogging G-Tube, may contact Pharmacy to switch formulation to a powder packet.
[facility] Medication administered onsite Trazodone Hydrochloride 50 MG Oral Tablet trazodone (D ESYREL) tablet 50 mg trazodone (DESYREL) tablet 50 mg 12/20/2019 01:00:37 AM EDT 50 mg Oral active 50 mg, Oral, Nightly PRN, Sleep, Starting [facility] 12/20/19 at 0100, For 30 days [facility] Medication administered onsite Acetaminophen 325 MG Oral Tablet acetaminophen (TYLENO L) tablet 650 mg acetaminophen (TYLENOL) tablet 650 mg 12/20/2019 01:00:07 AM EDT 65 0 mg Oral completed 650 mg, Oral, E very 4 hours PRN, Mild Pain (Pain Scale Score 1-3), Starting [facility] 12/20/19 at 0100, For 3 days
Maximum daily dose of acetaminophen is 3,000 mg from all sources in 24 hours.
[facility] Medication administered onsite sennosides, SENIOR CARE 8.6 MG Oral Tablet senna tablet 2 tablet sen na tablet 2 tablet 12/20/2019 01:00:07 AM EDT 2 {tbl} Oral active 2 tablet, Oral, Nightly PRN, Constipation, Starting [facility] 12/20/19 at 0100, For 30 days [facility] Medication administered onsite dexamethasone (DECADRON) injection 4 mg [id number] 12/19/19 10:15:00 PM EDT 4 mg Intravenous completed 4 mg, Intr avenous, Once, 12/19/19 at 2215, For 1 dose [facility] Medication administered onsite Acetaminophen 325 MG Oral Tablet acetaminophen (TYLENO L) tablet 650 mg acetaminophen (TYLENOL) tablet 650 mg 11/27/2019 12:45:00 PM EDT 65 0 mg Oral completed 650 mg, Oral, O nce, 11/27/19 at 1245, For 1 dose
Give once prior to transfusion.
[facility] Medication administered onsite Diphenhydramine Hydrochloride 25 MG Oral Capsule diphenhydrAMINE (BENADRYL) capsule 25 mg diphenhydrAMINE (BENADRYL) capsule 25 mg 11/27/2019 12 :45:00 PM EDT 25 mg Oral completed 25 mg, Oral, Once, 11/27/19 at 1245, For 1 dose
Give once prior to transfusion.
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 Anaplastic astrocytoma Zonisamide 100 MG Zonisamide 10/22/2019 01:00:00 AM EDT completed NETSMART ([facility] ) Bactrim DS 800-160 MG Bactrim DS 10/22/2019 01:00:00 AM EDT completed [facility]SMART ([facility]) Prochlorperazine Maleate 10 MG Prochlorperazine Maleate 10/05 01:00:00 AM EDT completed NETSMAR T ([facility]) Omeprazole 40 MG Omeprazole 10/22/2019 01:00:00 AM EDT completed [facility]SMART ([facility] ) Ondansetron HCl 8 MG Ondansetron HCl 10/22/2019 01:00:00 AM EDT completed [facility]SM[facility] ([facility]) Dexamethasone 4 MG Dexamethasone 10/22/2019 01:00:00 AM EDT completed [facility]SMART ([facility]) LevETIRAcetam 500 MG LevETIRAcetam 10/22/2019 01:00:00 AM EDT completed [facility]SMART ([facility]) temozolomide 20 MG Oral Capsule Temozolomide 20 MG Ora l Capsule (Temodar) Temozolomide 20 MG Oral Capsule (Temodar) 10/19/2019 12:00:00 AM EDT 160 mg Oral aborted Take 8 capsule s by mouth daily Start taking the night before radiation begins [facility] Ondansetron 4 MG Oral Tablet Ondansetron HCl 4 MG Oral Tablet (Zofran) Ondansetron HCl 4 MG Oral Tablet (Zofran) 10/15/2019 12:00:00 AM EDT 4 mg Oral completed Take 1 tablet by mouth every 8 (eight) hours as needed for Nausea [facility] Sulfamethoxazole 800 MG / Trimethoprim 1 60 MG Oral Tablet Sulfamethoxazole- Trimethoprim 800-160 MG Oral Tablet (BACTRIM DS) Sulfamethoxazole-Trimethoprim 800-160 MG Oral Tablet (BACTRIM DS) 10/13/2019 12:00:00 AM EDT 1 {tbl } Oral completed Take 1 tablet by mouth daily for 10 days [facility] Omeprazole 40 MG Delayed Release Oral Ca psule Omeprazole 40 MG Oral Capsule Delayed Release (PRILOSEC) Omeprazole 40 MG Oral Capsule Delayed Re lease (PRILOSEC) 10/12/2019 12:00:00 AM EDT 40 mg Oral aborted Take 1 capsule by mouth daily [facility] Levetiracetam 500 MG Oral Tablet levETIRAcetam 500 MG Oral Tablet (KEPPRA) levETIRAcetam 500 MG Oral Tablet (KEPPRA) 10/12/2019 12:00:00 AM EDT 1000 mg Oral active Take 2 tablets by mo [facility] Two Times Daily [facility] Dexamethasone 4 MG Oral Tablet Dexamethasone 4 MG Oral Tablet (DECADRON) Dexamethasone 4 MG Oral Tablet (DECADRON) 10/12/2019 12:00:00 AM EDT 4 mg Oral active Take 1 tablet by luci Two times daily with meals [facility] Insurance Providers Payer name Policy type / Coverage type Policy ID Covered republican ID Covered republican's relationship to santos Policy [place] Plan Information [facility] [id number] SP [id number] MEDICAID M [id number] Self [id number] MEDICARE A [id number] Self [id number] MEDICAID M [id number] Self [id number] COMMERCIAL GENERIC U [id number] Self [id number] MEDICAID OOS M [id number] Self [id number] MEDICAID -PHYSICIAN [id number] MEDICARE PART A -O/P [id number] 18 [id number] MEDICAID - O/P EMERGENCY ROOM [id number] [facility] COMMUN[facility]AN MCDO [id number] SP [id number] SELF PAY UNAVAILABLE UNAVAILA BLE MEDICAID -CLINIC [id number] [facility] -CLINIC [id number] 18 [id number] UNHC XIX HMO-O/P [id number] MEDICAID [id number] SP [id number] Problems, Conditions, and Diagnoses Code Display Name Description Problem Type Effective Dates Data Source(s) L89.322 Pressure ulcer of left buttock, stage 2 Pressure ulcer of left buttock, stage 2 Problem 04/15/2020 12:00:00 AM EST NETSMART ([facility]) S82.841D Displaced bimalleolar fractu re of right lower leg, subsequent encounter for closed fracture with routine healing Displaced bimalleolar fracture of right lower leg, subsequent encounter for closed fracture with routine healing Problem 04/15/2020 12:00:00 AM EST NETSMART ([facility]) C71.8 Malignant neoplasm of overlapping sites of brain Malignant neoplasm of overlapping sites of brain Problem 04/15/2020 12:00:00 AM EST NETSMA RT ([facility]) 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, not intractable, 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, not intractable, without status epilepticus Problem 04/15/2020 12:00 :00 AM EST NETSMART ([facility]) 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 cer ebral infarction affecting right dominant side Problem 04/15/2020 12:00:00 AM EST [facility]SMART ([facility]) 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 Problem 04/15/2020 12:00:00 AM EST [facility]SMART ([facility]) R47.01 Aphasia Aphasia Problem 04/15/2020 12:00:00 AM ES T [facility]SMART ([facility]) F41.9 Anxiety disorder, unspecified Anxiety disorder, unspec ified Problem 04/15/2020 12:00:00 AM EST [facility]SMART ([facility] ) F32.9 Major depressive disorder, single episod e, unspecified Major depressive disorder, single episode, unspecified Problem 04/15/2020 12:00:00 AM EST [facility]SMART ([facility]) E66.9 Obesity, unspecified Obesity, unspecified Problem 04/15/2020 12:00:00 AM EST [facility]SMART ([facility] ) R32 Unspecified urinary incontinence Unspecified urinary i ncontinence Problem 04/15/2020 12:00:00 AM EST [facility]SMART ([facility] ) Z48.00 Encounter for change or removal of nonsu rgical wound dressing Encounter for change or removal of nonsurgical wound dressing Problem 12:00:00 AM EST [facility]SMART ([facility] ) Z79.52 senior living (current) use of systemic ster oids 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 Problem 04/15/2020 12:00:00 AM EST [facility]SMART ([facility]) Z68.33 Body mass index [BMI] 33.0-33.9, adult B thao mass index [BMI] 33.0-33.9, adult Problem 04/15/2020 12:00:00 AM EST [facility]SMART ([facility]) Z86.16 Personal history of COVID-19 Personal history of COVID -19 Problem 04/15/2020 12:00:00 AM EST [facility]SMART ([facility] ) Z91.81 History of falling History of falling Problem 12:00:00 AM EST [facility]SMART ([facility]) 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 on wheelchair Prob deyvi 04/15/2020 12:00:00 AM EST [facility]SMART ([facility] ) L89.312 Pressure ulcer of right buttock, stage 2 Pressure ulcer of right buttock, stage 2 Problem 04/15/2020 12:00:00 AM EST [facility]SMART ([facility]) C71.9 Malignant neoplasm of brain, unspecified Malignant neoplasm of brain, unspecified Problem 04/13/2020 12:00:00 AM EST [facility]SMART ([facility]) 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, not intractable, 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, not intractable, without status epilepticus Problem 10/21/2019 01:00 :00 AM EDT NETSMART ([facility]) 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 cer ebral infarction affecting right dominant side Problem 10/21/2019 01:00:00 AM EDT NET SMART ([facility]) 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 Problem 10/21/2019 01:00:00 AM EDT NETSMART ([facility]) R47.01 Aphasia Aphasia Problem 10/21/2019 01:00:00 AM ED T NETSMART ([facility]) F41.9 Anxiety disorder, unspecified Anxiety disorder, unspec ified Problem 10/21/2019 01:00:00 AM EDT NETSMART ([facility] ) F32.9 Major depressive disorder, single episod e, unspecified Major depressive disorder, single episode, unspecified Problem 10/21/2019 01:00:00 AM EDT NETSMART ([facility]) E66.9 Obesity, unspecified Obesity, unspecified Problem 10/21/2019 01:00:00 AM EDT NETSMART ([facility] ) Z91.81 History of falling History of falling Problem 0 01:00:00 AM EDT NETSMART ([facility]) Z68.33 Body mass index (BMI) 33.0-33.9, adult B thao mass index (BMI) 33.0-33.9, adult Problem 10/21/2019 01:00:00 AM EDT NETSMART ([facility]) C71.8 Malignant neoplasm of overlapping sites of brain Malignant neoplasm of overlapping sites of brain Problem 10/21/2019 01:00:00 AM EDT NETSMA RT ([facility]) C71.9 Malignant neoplasm of brain, unspecified Malignant neoplasm of brain, unspecified Problem 10/11/2019 01:00:00 AM EDT NETSMART ([facility]) S82.891D Other fracture of right lowe r leg, subsequent encounter for closed fracture with routine healing Other fracture of right lower leg, subse quent encounter for closed fracture with routine healing Diagnosis 10:25:55 AM [facility] S82.409D Unspecified fracture of shaf t of unspecified fibula, subsequent encounter for closed fracture with routine healing Unspecified fracture of shaft of unspecified fibula, subsequent encounter for closed fracture with routine healing Diagnosis 12/19/2019 10:58:44 PM EDT [facility] S82.209D Unspecified fracture of shaf t of unspecified tibia, subsequent encounter for closed fracture with routine healing Unspecified fracture of shaft of unspecified tibia, subsequent encounter for closed fracture with routine healing Diagnosis 12/19/2019 10:58:44 PM EDT [facility] S82.409A Unspecified fracture of shaf t of unspecified fibula, initial encounter for closed fracture Unspecified fracture of shaft of unspeci fied fibula, initial encounter for closed fracture Diagnosis 12/19/2019 10:58:44 PM EDT [facility] S82.209A Unspecified fracture of shaf t of unspecified tibia, initial encounter for closed fracture Unspecified fracture of shaft of unspeci fied tibia, initial encounter for closed fracture Diagnosis 12/19/2019 10:58:44 PM EDT [facility] vasogenic edema, LE weakness, brain mass vasogenic edema, LE weakness, brain mass Diagnosis 12/19/2019 04:27:00 PM EDT [facility] follow up follow up Diagnosis 12/04/2019 09:26:26 AM ED [facility] D69.6 Thrombocytopenia, unspecified Thrombocytopenia, unspec ified Diagnosis 11/27/2019 12:10:29 PM EDT [facility] on treat on treat Diagnosis 11/06/2019 01:59:56 PM ED [facility] billing billing Diagnosis 10/24/2019 08:04:04 AM ED [facility] 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 Diagnosis 10/09/2019 06:53:39 PM EDT [facility] C71.9 Malignant neoplasm of brain, unspecified Malignant neoplasm of brain, unspecified Diagnosis 10/09/2019 06:52:36 PM EDT [facility] R41.82 Altered mental status, unspecified Altered menta l status, unspecified Diagnosis 10/08[facility]2019 08[facility]55[facility] E87.6 Hypokalemia Hypokalemia Diagnosis 10/08/2019 08:55:14 AM [facility] G93.89 Other specified disorders of brain Other specifi ed disorders of brain Diagnosis 10/08/2019 08:55:14 AM [facility] R56.9 Unspecified convulsions Unspecified convulsions Diagno sis 10/08/2019 08:55:14 AM [facility] seizures seizures Diagnosis 10/08/2019 08:55:14 AM ED [facility] [id number] Latex allergy status Latex allergy status Diagnosis 10/08/2019 03:07:00 AM EDT [facility] E876 Hypokalemia Hypokalemia Diagnosis 10/08/2019 03:07:00 AM [facility] G9389 Other specified disorders of brain Other specifi ed disorders of brain Diagnosis 10/08/2019 03:07:00 AM EDT [facility] R569 Unspecified convulsions Unspecified convulsions Diagno sis 10/08/2019 03:07:00 AM [facility] Surgeries/Procedures Procedure Description Date Indications Data Source(s) POCT GLUCOSE, DOCKED POCT GLUCOSE, DOCKED Routine 12/24/2019 1:09 PM EDT 12/24/2019 01:09:00 PM T [facility] RESPIRATORY PATHOGEN PANEL RESPIRATORY PATHOGEN PANEL Routine 12/24/2019 12:49 PM EDT 12/24/2019 12:49:00 PM EDT [facility] COVID-19 PCR COVID-19 PCR STAT 12/24/2019 11:57 AM EDT 12/24/2019 11:57:00 AM [facility] POCT GLUCOSE, DOCKED POCT GLUCOSE, DOCKED Routine 12/24/2019 7:36 AM EDT 12/24/2019 07:36:00 AM [facility] BLOOD COUNT COMPLETE AUTOMATED CBC Routine 12/24/2019 3:22 A M EDT 12/24/2019 03:22:00 AM [facility] GLUCOSE QUANTITATIVE BLOOD XCPT REAGENT STRIP POCT GLUCOSE, DOC KED Routine 12/23/2019 11:25 PM EDT 12/23/2019 11:25:00 PM [facility] GLUCOSE QUANTITATIVE BLOOD XCPT REAGENT STRIP POCT GLUCOSE, DOC KED Routine 12/23/2019 4:54 PM EDT 12/23/2019 04:54:00 PM [facility] GLUCOSE QUANTITATIVE BLOOD XCPT REAGENT STRIP POCT GLUCOSE, DOC KED Routine 12/23/2019 7:46 AM EDT 12/23/2019 07:46:00 AM [facility] BLOOD COUNT COMPLETE AUTOMATED CBC Routine 12/23/2019 3:24 A M EDT 12/23/2019 03:24:00 AM [facility] PHOSPHORUS INORGANIC PHOSPHORUS LEVEL Routine 12/23/2019 3:24 AM E DT 12/23/2019 03:24:00 AM [facility] MAGNESIUM MAGNESIUM LEVEL Routine 12/23/2019 3:24 AM EDT 12/23/2019 03:24:00 AM [facility] BASIC METABOLIC PANEL CALCIUM TOTAL BASIC METABOLIC PANEL Routi ne 12/23/2019 3:24 AM EDT 12/23[facility] XCPT REAGENT STRIP POCT GLUCOSE, DOC KED Routine 12/23/2019 12:49 AM EDT 12/23/2019 12:49:00 AM [facility] GLUCOSE QUANTITATIVE BLOOD XCPT REAGENT STRIP POCT GLUCOSE, DOC KED Routine 12/22/2019 5:24 PM EDT 12/22/2019 05:24:00 PM [facility] GLUCOSE QUANTITATIVE BLOOD XCPT REAGENT STRIP POCT GLUCOSE, DOC KED Routine 12/22/2019 8:18 AM EDT 12/22/2019 08:18:00 AM [facility] BLOOD COUNT COMPLETE AUTOMATED CBC Routine 12/22/2019 3:50 A M EDT 12/22/2019 03:50:00 AM [facility] PHOSPHORUS INORGANIC PHOSPHORUS LEVEL Routine 12/22/2019 3:50 AM E DT 12/22/2019 03:50:00 AM [facility] MAGNESIUM MAGNESIUM LEVEL Routine 12/22/2019 3:50 AM EDT 12/22/2019 03:50:00 AM [facility] BASIC METABOLIC PANEL CALCIUM TOTAL BASIC METABOLIC PANEL Routi ne 12/22/2019 3:50 AM EDT 12/22/2019 03:50:00 AM EDT [facility] GLUCOSE QUANTITATIVE BLOOD XCPT REAGENT STRIP POCT GLUCOSE, DOC KED Routine 12/22/2019 12:40 AM EDT 12/22/2019 12:40:00 AM [facility] GLUCOSE QUANTITATIVE BLOOD XCPT REAGENT STRIP POCT GLUCOSE, DOC KED Routine 12/21/2019 5:40 PM EDT 12/21/2019 05:40:00 PM [facility] GLUCOSE QUANTITATIVE BLOOD XCPT REAGENT STRIP POCT GLUCOSE, DOC NICHOLASD Routine 12/21/2019 12:30 PM EDT 12/21/2019 12:30:00 PM [facility] BLOOD COUNT COMPLETE AUTOMATED CBC AND DIFFERENTIAL Routine 12/21/2019 4:37 AM EDT 12/21/2019 04:37:00 AM EDT [facility] PHOSPHORUS INORGANIC PHOSPHORUS LEVEL Routine 12/21/2019 4:37 AM E DT 12/21/2019 04:37:00 AM [facility] MAGNESIUM MAGNESIUM LEVEL Routine 12/21/2019 4:37 AM EDT 12/21/2019 04:37:00 AM [facility] BASIC METABOLIC PANEL CALCIUM TOTAL BASIC METABOLIC PANEL Routi ne 12/21/2019 4:37 AM EDT 12/21/2019 04:37:00 AM EDT [facility] GLUCOSE QUANTITATIVE BLOOD XCPT REAGENT STRIP POCT GLUCOSE, DOC KED Routine 12/20/2019 10:55 PM EDT 12/20/2019 10:55:00 PM [facility] BLOOD COUNT COMPLETE AUTOMATED CBC Routine 12/20/2019 8:31 P M EDT 12/20/2019 08:31:00 PM [facility] BASIC METABOLIC PANEL CALCIUM TOTAL BASIC METABOLIC PANEL Routi ne 12/20/2019 8:31 PM EDT 12/20/2019 08:31:00 PM EDT [facility] RADIOLOGIC EXAMINATION ANKLE 2 VIEWS XR ANKLE 2 VIEWS PORT-OR 7 3600 Routine 12/20/2019 6:21 PM EDT [place]/fibula fracture 12/20/2019 06:21:06 PM EDT Tibia/fibula fr [facility] Tibia/fibula fracture ORIF ANKLE, CALCANEOUS, PILON ORIF ANKLE, CALCANEOUS, PILON 12/20/2019 4:46 PM EDT right bimalleolar ankle fracture 12/20/2019 04:46:00 P M EDT - 12/20/2019 07:10:00 PM EDT [facility] GLUCOSE QUANTITATIVE BLOOD XCPT REAGENT STRIP POCT GLUCOSE, DOC KED Routine 12/20/2019 7:51 AM EDT 12/20/2019 07:51:00 AM [facility] BLOOD COUNT COMPLETE AUTOMATED CBC AND DIFFERENTIAL Routine 12/20/2019 2:56 AM EDT 12/20/2019 02:56:00 AM EDT [facility] PHOSPHORUS INORGANIC PHOSPHORUS LEVEL Routine 12/20/2019 2:56 AM E DT 12/20[facility]2019 [facility] MAGNESIUM MAGNESIUM LEVEL Routine 12/20/2019 2:56 AM EDT 12/20/2019 02:56:00 AM [facility] BASIC METABOLIC PANEL CALCIUM TOTAL BASIC METABOLIC PANEL Routi ne 12/20/2019 2:56 AM EDT 12/20/2019 02:56:00 AM EDT [facility] GLUCOSE QUANTITATIVE BLOOD XCPT REAGENT STRIP POCT GLUCOSE, DOC KED Routine 12/20/2019 2:53 AM EDT 12/20/2019 02:53:00 AM [facility] EKG ED PHYSICIAN INTERPRETATION EKG ED PHYSICIAN INTERPRETATION Routine 12/19/2019 9:19 PM EDT 12/19/2019 09:19:45 PM [facility] EKG 12-LEAD - CMAXX REPORT EKG 12-LEAD - CMAXX REPORT 12/19/2019 8:37 PM EDT 12/19/2019 08:37:51 PM EDT [facility] EKG 12-LEAD - CMAXX REPORT EKG 12-LEAD - CMAXX REPORT 12/19/2019 8:37 PM EDT 12/19/2019 08:37:51 PM EDT [facility] EKG 12-LEAD EKG 12-LEAD STAT 12/19/2019 8:37 PM EDT 12/19/2019 08:37:51 PM EDT [facility] EKG 12-LEAD - CMAXX REPORT EKG 12-LEAD - CMAXX REPORT 12/19/2019 8:37 PM EDT 12/19/2019 08:37:00 PM EDT [facility] XR CHEST FRONTAL ONLY [id number] XR CHEST FRONTAL ONLY [id number] STAT 12/19/2019 8:15 PM EDT 12/19/2019 08:15:27 PM EDT [facility] PROTHROMBIN TIME PROTIME INR STAT 12/19/2019 8:01 PM EDT 12/19/2019 08:01:00 PM EDT [facility] BLOOD COUNT COMPLETE AUTOMATED CBC STAT 12/19/2019 8:01 P M EDT [facility]/19[facility]2019 [facility] ABO TYPE AND SCREEN STAT 12/19/2019 8:01 PM EDT 12/19/2019 08:01[facility] HEMOGLOBIN GLYCOSYLATED A1C HEMOGLOBIN A1C Routine 12/19/2019 8:01 PM EDT 12/19/2019 08:01:00 PM EDT [facility] BASIC METABOLIC PANEL CALCIUM TOTAL BASIC METABOLIC PANEL STAT 12/19/2019 8:01 PM EDT 12/19/2019 08:01:00 PM EDT [facility] CT LOWER EXTREMITY W/O CONTRAST MATERIAL CT LOWER EXT REMITY WITHOUT CONTRAST [id number] STAT 12/19/2019 7:12 PM EDT 12/19/2019 07:12 :05 PM EDT [facility] RADEX ANKLE COMPLETE MINIMUM 3 VIEWS XR ANKLE 3 OR MORE VIEWS 7 [id number] STAT 12/19/2019 7:01 PM EDT 12/19/2019 07:01:00 PM EDT [facility] BLOOD COUNT COMPLETE AUTOMATED CBC AND DIFFERENTIAL STAT 12/03/2019 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 [facility] Anaplastic astrocytoma COMPREHENSIVE METABOLIC PANEL COMPREHENSIVE METABOLIC PANEL STA T 12/03/2019 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 [facility] Anaplastic astrocytoma BLOOD COUNT PLATELET AUTOMATED PLATELET COUNT STAT 020 3:35 PM EDT Neoplasm of brain causing mass effect on adjacent structures Thrombocytopenia 11/27/2019 03:35:00 PM EDT Thrombocytope niaNeoplasm of brain causing mass effect on adjacent structures [facility] Thrombocytopenia Neoplasm of brain causing mass effect on adjacent structures TRANSFUSE PLATELET PHERESIS (ONCE) TRANSFUSE PLATELET PHERESIS (ONCE) Routine 11/27/2019 2:58 PM EDT 11/27/2019 02:58:26 PM EDT [facility] COMPREHENSIVE METABOLIC PANEL COMPREHENSIVE METABOLIC PANEL STA T 11/27/2019 1:15 PM EDT Neoplasm of brain causing mass effect on adjacent structures 11/27/2019 01:15:00 PM EDT Neoplasm of brain causing mass effect on adjacent stru ctures [facility] Neoplasm of brain causing mass effect on adjacent structures BLOOD COUNT COMPLETE AUTO&AUTO DIFRNTL WBC COUNT CBC AND DIFFER ENTIAL STAT 11/27/2019 12:50 PM EDT Neoplasm of brain causing mass effect on adjacent structures Thrombocytopenia 11/27/2019 12:50:00 PM EDT Thrombocytope niaNeoplasm of brain causing mass effect on adjacent structures [facility] Thrombocytopenia Neoplasm of brain causing mass effect on adjacent structures BLOOD TYPING ABO TYPE AND SCREEN STAT 11/27/2019 12:50 PM EDT Neoplasm of brain causing mass effect on adjacent structures Thrombocytopenia 11/27/2019 12:50:00 PM EDT Thrombocytope niaNeoplasm of brain causing mass effect on adjacent structures [facility] Thrombocytopenia Neoplasm of brain causing mass effect on adjacent structures PREPARE PLATELET PHERESIS PREPARE PLATELET PHERESIS Routine 11/27/2019 12:33 PM EDT 11/27/2019 12:33:00 PM EDT [facility] Results ID Date Data Source [id number] 03/14/2020 09:47:00 PM EST [facility] Name Value Range Interpretation Code Description Data Karoline rce(s) Supporting Document(s) SARS coronavirus 2 RNA Not Detected [facility] This lab was ordered by [facility] and reported by [facility]. ID Date Data Source [id number] 03/14/2020 07:15:00 PM EST [facility] Name Value Range Interpretation Code Description Data Karoline rce(s) Supporting Document(s) COVID-19 NOT DETECTED [facility] This lab was ordered by [facility] and reported by [facility]. ID Date Data Source [id number] 03/14/2020 07:15:00 PM EST [facility] Name Value Range Interpretation Code Description Data Karoline rce(s) Supporting Document(s) COVID-19 REENTER NOT DETECTED [facility] This lab was ordered by [facility] and reported by [facility]. ID Date Data Source [id number] 03/13/2020 09:00:00 AM EST [facility] Name Value Range Interpretation Code Description Data Karoline rce(s) Supporting Document(s) SARS coronavirus 2 RNA Not Detected [facility] [place] This lab was ordered by [facility] and reported by [facility]. ID Date Data Source [id number] 03/10/2020 12:15:00 PM EST [facility] Name Value Range Interpretation Code Description Data Karoline rce(s) Supporting Document(s) SARS coronavirus 2 RNA Not Detected [facility] [place] This lab was ordered by [facility] and reported by [facility]. ID Date Data Source [id number] 03/06/2020 10:00:00 AM EST [facility] Name Value Range Interpretation Code Description Data Karoline rce(s) Supporting Document(s) SARS coronavirus 2 RNA [facility] This lab was ordered by [facility] and reported by [facility]. ID Date Data Source [id number] 03/03/2020 11:20:00 AM EST [facility] Name Value Range Interpretation Code Description Data Karoline rce(s) Supporting Document(s) SARS coronavirus 2 RNA [facility] This lab was ordered by [facility] and reported by [facility]. ID Date Data Source [id number] 02/28/2020 11:20:00 AM EST [facility] Name Value Range Interpretation Code Description Data Karoline rce(s) Supporting Document(s) SARS coronavirus 2 RNA [facility] This lab was ordered by [facility] and reported by [facility]. ID Date Data Source [id number] 01/30/2020 01:26:00 PM EST [facility] Name Value Range Interpretation Code Description Data Karoline rce(s) Supporting Document(s) SARS coronavirus 2 RNA [facility] This lab was ordered by [facility] and reported by [facility]. ID Date Data Source [id number] 01/29/2020 04:49:51 PM EST [facility] XR ANKLE 3 OR MORE VIEWS [id number] RESU LTInterpreted by:LISSY Ordoñezlinical history: Status post [...] rce(s) Supporting Document(s) ID Date Data Source [id number] 01/29/2020 12:04:20 PM [facility] Name Value Range Interpretation Code Description Data Karoline rce(s) Supporting Document(s) Progress Note [facility] BVSISf0eJhAMPaSo12/SIUcnRTOxl9HrWUlyCYs9NRsxEJSxF3LxTBW6hT6kAKW2JHuVXjDgLgCoPXV6 m [file] A9GUJnCQUtTEWwFdL2IDPyRwNwAXE3TsW1ZjJnTS 8DFp8KVjE0FDU2rXGfZz4HCQd5UYbFCeHzHG0DTGi= ID Date Data Source [id number] 01/29/2020 11:10:00 AM EST [facility] Name Value Range Interpretation Code Description Data Karoline rce(s) Supporting Document(s) Progress Note [facility] AWWJPq4gInAASrUb10/EMCmsOBEux6JoVQtjLIb3KInqPAPxG9EaHVD9vX0jGWM8XYtTAaCoPsLvLKG5 lbm BuEssQRxUtTAOfUjoAZtDwRVzxEtqehDHbGQ3YfUZ4DFPcE75gYMZsMXMqH9VdXAP5PAX+Yn6YUQUmyT AyNH5FXdaY3Xznp7kGHA3c9M1fHCDjG8R8D6bTgdMOyLcItDYayZOg6BQc0BZ6ddfncIljtw+kro0M61 IHC015xncXwUYWt+xuI0wMPv03PCf9rePIYo+/+en6 ZgqU5q1/Mn75O760EA/ZJnKBMjzDLS/Htrsq9itiNPATB7Wy5TEzRtjuAa+meOFlQMM9pbn6GzU5n6Ek g65w1SxVnEyOaCDpo4MFTmDgUbhc2rqaUZSvsve9UZjYW0dhQROqAMkRCgy3sip9bPvkmfNsnbu5Aycx yztpEWgns53Rw5CEGPjqpfZ5GtatlrK+ORQfeytdGo [file] K0AyQhFNNtXzo6CoZbSX1QMj3LYgG2TKE5tCQgGk1IYuAdBUVGVpDvVQ0LKHi= ID Date Data Source [id number] 01/17/2020 07:09:22 AM [facility] XR ANKLE 3 OR MORE VIEWS [id number] RESU LTInterpreted by:JALEESA Jennings ANKLECLINICAL STATEMENT: Status [...] rce(s) Supporting Document(s) ID Date Data Source [id number] 01/15/2020 01:21:21 PM [facility] Name Value Range Interpretation Code Description Data Karoline rce(s) Supporting Document(s) Progress Note [facility] IHWKTr6jSdAZKxFp68/LAYfsTWApt0QkFAafXUv9OOaxYUIuC0GmUYP3zU8sTPZ9ZIlANwJeDtNzLHRg m OhMvcMMbJyKSPzTsxRVuOxPCmqHmkptJSdDH2TkKB4ERWoW38sQZToDIUxS7NaBAI0Odo+Qq1JFOQxnJ CdZE6PTrpU1XvLgfz6ON2t1F5PcLKjWQN8VZgbVdIZgxEGZejdZ27Z2B2BYNEpBMeFa5F+718XJq9FEk rZlIvGfpA+DDnDuWepZaz6+5dGqbEyXBk2l73PqWQ8 Kfv+L7Hyg3E3cUpoDNLYllIxXC3Fj3q+7RJIAmA91RrQdkKNWyOHssAe+2MXtv1n464f2txCiZfdIx1X SrW6jtSR+w3VvfNNKVM9Uu4JMSxoiBebtkNTMp1SCR8BaPdMYY8oKee0As/9FraX3djKWehBryHqS9xk URmPrWG3cCKLIP7/K/Dyr2800izqV98+uai6mcOOV+ axm9GJcMeyOZArVZx18ZVMEdGi7NecfLJmuqUsk8Zwv7tZyh0p0U8zVpJZX+oghQQabRsQRV8LqAnJzW monserrat/sXv1mirWPdX+jEvb5c9idpVEdomL/eolZlrdBZkcVEWwCOR3eJiOkOxXMlYcPxRugnrDyRhJiQEK [file] DQogICAgICAgICAgICAgICAgICAgICAgICAgICAgICAgICAgICAgICAgICAgICAgICAgICAgICAgICAg ICAgICAgICAgICAgICAgICAgICAgICAgICAgICAgIC AgICAgICAgICAgDQogICAgICAgICAgICAgICAgICAgICAgICAgICAgICAgICAgICAgICAgICAgICAgIC AgICAgICAgICAgICAgICAgICAgICAgICAgICAgICAgICAgICAgICAgICAgICAgICAgICAgDQogICAgIC AgICAgICAgICAgICAgICAgICAgICAgICAgICAgICAg ICAgICAgICAgICAgICAgICAgICAgICAgICAgICAgICAgICAgICAgICAgICAgICAgICAgICAgICAgICAg ICAgDQogICAgICAgICAgICAgICAgICAgICAgICAgICAgICAgICAgICAgICAgICAgICAgICAgICAgICAg ICAgICAgICAgICAgICAgICAgICAgICAgICAgICAgIC AgICAgICAgICAgICAgDQogICAgICAgICAgICAgICAgICAgICAgICAgICAgICAgICAgICAgICAgICAgIC AgICAgICAgICAgICAgICAgICAgICAgICAgICAgICAgICAgICAgICAgICAgICAgICAgICAgICAgDQogIC AgICAgICAgICAgICAgICAgICAgICAgICAgICAgICAg ICAgICAgICAgICAgICAgICAgICAgICAgICAgICAgICAgICAgICAgICAgICAgICAgICAgICAgICAgICAg ICAgICAgDQogICAgICAgICAgICAgICAgICAgICAgICAgICAgICAgICAgICAgICAgICAgICAgICAgICAg ICAgICAgICAgICAgICAgICAgICAgICAgICAgICAgIC AgICAgICAgICAgICAgICAgDQogICAgICAgICAgICAgICAgICAgICAgICAgICAgICAgICAgICAgICAgIC AgICAgICAgICAgICAgICAgICAgICAgICAgICAgICAgICAgICAgICAgICAgICAgICAgICAgICAgICAgDQ ogICAgICAgICAgICAgICAgICAgICAgICAgICAgICAg ICAgICAgICAgICAgICAgICAgICAgICAgICAgICAgICAgICAgICAgICAgICAgICAgICAgICAgICAgICAg ICAgICAgICAgDQogICAgICAgICAgICAgICAgICAgICAgICAgICAgICAgICAgICAgICAgICAgICAgICAg ICAgICAgICAgICAgICAgICAgICAgICAgICAgICAgIC FhCBWnBFXjCQUrWYVvRZRyOEQgMNo5E1vyYLQgJKEzAR4qWFe6Iz4+UBnNOaJiWZW1rxTadU3SGK2ly4 QyLKjvLCVgu8YhWHv4YJ2IDVGaATpnLI2BZZcxjn5DZJBcNMQjkAZBf8lkNxEqQHI9KVTgQfhqHW3UFL EyB5uuyjJmYXYwNFKCZV3BSzWrR4QebK12LVKXZn6+ YUctzpEzOwuIZfJ7JMYez8NiMBg5UT1IZRWaAlrkl8EcSdNvSVAOBLutRC5CDMK3QQMuHXMbCx5FHZUj E023onSgBW3DJj7RZvIiFS0isp9SIsVbWCEmRgbHOds5SXhjQY8UoTUvGZgTai1vbeLwkvDKq6OxsbVi rBJHz43yvFdrztBLoGBrczSkrYQhUT6fSE2bLFYsHJ ThKmW6PWNTPF9QHHTdVUCuuFBmXUMyBVHZLM9EWVacFMU3KADalsVpgCMdKGorCT7XJNEtycLsPEfjZO BSDQo+Pz3WRJ1zs6KiJNbbWWEfMJ3hxo6PGJcECsSoQ5Y3kTTuJ3M4COuaJx2HMLNrCHAwKObuHFPJDL rmHP8RLR8bdsA2VI7ZzGFlKDCwRNHapWTtNIb1D63e oNYvNYkoQY3QKRR+Greta+Bl2CBULhPATbBBAhVdAtASOCCqTkQ6QhZ8QIb3NtJ5TfLK44yXespcGqVEmu FA0DIT8hVBTwTWMKQP2SxBAxiD0smqFaBYJkSZFIDwZuV22dpLWySZZnERQ8BTMyUt0BYKIgY5HfcaDg uYppsfWzBNDlYUSFCE4NSFsnqzPglZWxeCjhBH41qB fsMM4ULy2UUzLtQV6mzk2NwEBnJi8CLBTqKu1JTRHgRUAuOKQaMHA6XNNiCbLlPZkhZHFrFRApUXJ1YH LmBKHpPV2PMqGeEMAaNPU0FKKyEAXpNWJpzi0XORRpINEdHBX9QEQrDVEwMJQzOKjgBUOaQWCyCBU1NW SjDRAcOK4AMgIvYDFqYLK2JWPyFZZdFYMepv3QIURi IMZeJaSrMRVmSCFeMOVvBNjiCVPlECRkYHE0UVJlYHPpAE7AUoGjUSRbMODwFkFpDCPwZWNhcy9CFAGb YGWqItO5RCBrVOUtEMKyFMisQULwMSG1OlKuWVUcGAUjMN7MJqNsAOPzWYH9FHTvEDQqNHCmph4KZPDh WYSoIFE9LdCxGEJpZHIoMJcmGZCdYQP7ZNB0LSZaVK KzTS3HIrLgMFUgWXXeKfMlWAIfXYOgay8JKUUiXBOlDsZ1BtFdOYMzRNQvYSlmMRYjUKE8MJLiUDKnVB HzAG7RVfLhRGOeFIY0PUekPPNgTKDcpb3LNMAkVZGbHsW6SLYtQBYqIOHlJXwkNYOxSRG0Qjn6WRCpZU JqHP4XIxNhETXtHWv6HolvKNYaIINldv0CCRVzGQYc LTGmHpLeNPDkZZItMWf4npFskVNeTTe2LT7SI8YbwoQgTcUUQm7Gk993JSKfRNJqNe9VC3nsGa7lNHAf UGTYKy2HRYd7X0U9LQT9FxqkXfD5ZJunShKzYjXcOVNtYfbqAii0DrJ+VPbnPUsuEcSeXOD1KHM3QrBq WJAcB8UdNrZpFsZcJGvwEo3mBPERQj4+KBpljANvwIejHDZTQbU5XmC8PObvEJFFTt6C ID Date Data Source [id number] 01/15/2020 12:42:10 PM [facility] Name Value Range Interpretation Code Description Data Karoline rce(s) Supporting Document(s) Progress Note [facility] MWVSXw3fGwKZKtTp35/ZAGrtSBVis1CsLNvuWJe0RQckCMRaM1FvDPW0nE3jWRR9JZcEQuQeCdGrXZCw lbm FsQjlJOpDeYALxNomESeEqUJwdWjodxUHiHV7GbGK0JTOsX53aYCGxMSVyH9AsZWUyDxJ+Xc7MOXQzeO AuWT8RIicG5Qwxb8eDPm9a4B7nuXJURUmkpyZpMRBeqRy6sOwGuOCAQNrUE5BWhPUuYG7U++sKU5ApFN JdRoKgNWF4PVejGIvC/cKRhaj+/OvYuKreOVG9I0/1 QyVGc/SdJ7WqUyl0qiQg7RVHECxp/OqB/Ksta9MIea8uuzviXZ/ddVDKbG49PybbC37gsnvTOZ1JI [file] T0YNCg== ID Date Data Source [id number] 01/01/2020 03:43:38 PM EDT [facility] Name Value Range Interpretation Code Description Data Karoline rce(s) Supporting Document(s) Discharge Summary [facility] DHBTJy9jRhZSIpFq63/VOKuyQFZql4UgFKbyELu9TKhmKRIbG6YqHWB2zS9zONG5SRjBLzLzUnZiKSF1 lbm [file] HqO2CLB4Mk2eGHHPPp7+OXmypQFklInvZSPTEeCjGSB7NWncHKMHHm4U ID Date Data Source [id number] 12/24/2019 01:12:20 PM EDT [facility] Name Value Range Interpretation Code Description Data Karoline rce(s) Supporting Document(s) Glucose [Mass/volume] in Capillary blood by Glucometer 172 mg/dL 70- 140 H [facility] ID Date Data Source [id number] 12/24/2019 01:58:21 PM EDT [facility] Service Cmnt XXX-Imp : NoneRespiratory P CR Panel : PCR ResultsMicroorganism XXX Cult : See Labs Tab for 2019 nCoV RT-PCR resultsHAdV DNA QI WICHO+non-probe : Not DetectedHCoV [id number] Nph QI WICHO+non-probe : Not DetectedHCoV FER5XOY Nph QI WICHO+non-probe : Not EubxuiqcSEwGER63 RNA Nph QI WICHO+non-probe : Not MaypkifsFEtNBA16 RNA Upper resp QI WICHO+probe : Not [...] DNA Nph Q WICHO+non-probe : Not DetectedB czmloWR642 DNA Nph WICHO+non-probe : Not Detected Name Value Range Interpretation Code Description Data Karoline rce(s) Supporting Document(s) ID Date Data Source [id number] 12/24/2019 01:57:54 PM EDT [facility] Name Value Range Interpretation Code Description Data Karoline rce(s) Supporting Document(s) Specimen source [Identifier] of Unspecified specimen [facility] SARS-CoV-2 RNA 2019 nCoV Real-Time RT-PCR: NOT DETECTED [facility] Assay Performed [facility] Patients first test for [facility] Patient employed in healthcare setting [facility] Patient has symptoms related to [facility] When did you start to experience these symptoms [Date and time] [Phen X] [facility] Patient was hospitalized because of this condition [facility] patient was admitted to ICU for condition [facility] Patient resides in a congregate care setting [facility] status [facility] ID Date Data Source [id number] [facility] Value Range Interpretation Code Description Data Karoline rce(s) Supporting Document(s) SARS-CoV-2 RNA [facility] This lab was ordered by [facility] and reported by [facility]. ID Date Data Source [id number] 12/24/2019 07:51:50 AM [facility] Value Range Interpretation Code Description Data Karoline rce(s) Supporting Document(s) Glucose [Mass/volume] in Capillary blood by Glucometer 188 mg/dL 70- 140 H [facility] ID Date Data Source [id number] 12/24/2019 04:20:30 AM [facility] Value Range Interpretation Code Description Data Karoline rce(s) Supporting Document(s) Leukocytes [#/volume] in Blood by Automated count 10.1 10*3/uL 4-10 H [facility] Erythrocytes [#/volume] in Blood by Automated count 2.77 10*6/uL 4.1- 5.3 [facility] Hemoglobin [Mass/volume] in Blood 9.3 g/dL 11.5-15.5 [facility] Hematocrit [Volume Fraction] of Blood by Automated count 26.8 % 3 6-45 [facility] Erythrocyte mean corpuscular volume [Entitic volume] by Auto mated count 96.6 fL 80-96 [facility] Erythrocyte mean corpuscular hemoglobin [Entitic mass] by Automated count 33.4 pg 27-33 [facility] Erythrocyte mean corpuscular hemoglobin concentration [Mass/volume] by Automated count 34.6 g/dL 32.0-[facility] width [Ratio] by Automated count 20.4 % 11.5-14.5 [facility] Platelets [#/volume] in Blood by Automated count 147 10*3/uL 150-400 [facility] ID Date Data Source [id number] [facility]ation Code Description Data Karoline rce(s) Supporting Document(s) Glucose [Mass/volume] in Capillary blood by Glucometer 235 mg/dL 70- 140 H [facility] ID Date Data Source [id number] 12/23/2019 05:04:30 PM [facility] Value Range Interpretation Code Description Data Karoline rce(s) Supporting Document(s) Glucose [Mass/volume] in Capillary blood by Glucometer 218 mg/dL 70- 140 H [facility] ID Date Data Source [id number] 12/23/2019 07:57:05 AM [facility] Value Range Interpretation Code Description Data Karoline rce(s) Supporting Document(s) Glucose [Mass/volume] in Capillary blood by Glucometer 183 mg/dL 70- 140 [facility] ID Date Data Source [id number] 12/23/2019 06:19:29 AM [facility] Value Range Interpretation Code Description Data Karoline rce(s) Supporting Document(s) Leukocytes [#/volume] in Blood by Automated count 8.1 10*3/uL 4-10 [facility] Erythrocytes [#/volume] in Blood by Automated count 2.75 10*6/uL 4.1- 5.3 [facility] Hemoglobin [Mass/volume] in Blood 9.3 g/dL 11.5-15.5 [facility] Hematocrit [Volume Fraction] of Blood by Automated count 26.6 % 3 6-45 [facility] Erythrocyte mean corpuscular volume [Entitic volume] by Auto mated count 96.8 fL 80-96 [facility] Erythrocyte mean corpuscular hemoglobin [Entitic mass] by Automated count 33.9 pg 27-33 [facility] Erythrocyte mean corpuscular hemoglobin concentration [Mass/volume] by Automated count 35.0 g/dL 32.0-36.0 [facility] distribution width [Ratio] by Automated count 20.1 % 11.5-14.5 [facility] Platelets [#/volume] in Blood by Automated count 142 10*3/uL 150-400 [facility] ID Date Data Source [id number] 12/23/2019 06:23:04 AM [facility] Value Range Interpretation Code Description Data Karoline rce(s) Supporting Document(s) Magnesium [Mass/volume] in Serum or Plasma 2.1 mg/dL 1.6-2.6 [facility] ID Date Data Source [id number] 12/23/2019 06:23:04 AM [facility] Name Value Range Interpretation Code Description Data Karoline rce(s) Supporting Document(s) Bicarbonate [Moles/volume] in Serum 25 mmol/L 22-29 [facility] Chloride [Moles/volume] in Serum or Plasma 101 mmol/L 98-107 [facility] Creatinine [Mass/volume] in Serum or Plasma 0.56 mg/dL 0.50-0.90 [facility] Glucose [Mass/volume] in Serum or Plasma 170 mg/dL 70-140 H [facility] Potassium [Moles/volume] in Serum or Plasma 3.6 mmol/L 3.4-5.1 [facility] Sodium [Moles/volume] in Serum or Plasma 135 mmol/L 136-145 L [facility] Urea nitrogen [Mass/volume] in Serum or Plasma 13 mg/dL 6-20 [facility] Anion gap 3 in Serum or Plasma 9 mmol/L 8-15 [facility] Osmolality of Serum or Plasma by calculation 284 mosm/kg 275-300 [facility] Creatinine/Urea nitrogen [Mass Ratio] in Serum or Plasma 23 [facility] Calcium [Mass/volume] in Serum or Plasma 8.7 mg/dL 8.6-10.0 [facility] Glomerular filtration rate/1.73 sq M pre dicted among non-blacks [Volume Rate/Area] in Serum or Plasma by Creatinine-based formula (MDRD) >6 0 [facility] Glomerular filtration rate/1.73 sq M pre dicted among blacks [Volume Rate/Area] in Serum or Plasma by Creatinine-based formula (MDRD) >60 [facility] ID Date Data Source [id number] 12/23/2019 06:23:04 AM [facility] Name Value Range Interpretation Code Description Data Karolnie rce(s) Supporting Document(s) Phosphate [Mass/volume] in Serum or Plasma 2.2 mg/dL 2.5-4.5 L [facility] ID Date Data Source [id number] 12/23/2019 12:50:52 AM [facility] Value Range Interpretation Code Description Data Karoline rce(s) Supporting Document(s) Glucose [Mass/volume] in Capillary blood by Glucometer 204 mg/dL 70- 140 H [facility] ID Date Data Source [id number] 12/22/2019 05:27:35 PM EDT [facility] Name Value Range Interpretation Code Description Data Karoline rce(s) Supporting Document(s) Glucose [Mass/volume] in Capillary blood by Glucometer 218 mg/dL 70- 140 H [facility] ID Date Data Source [id number] 12/22/2019 08:24:59 AM EDT [facility] Name Value Range Interpretation Code Description Data Karoline rce(s) Supporting Document(s) Progress Note [facility] UTRJSc6qIgSVXrSa63/FTNipIRQba8RuPRleOUf5HDmkKMZiV1KnWJL7dJ7nOLP6RBrOJfOjXfZpPNK7 lbm [file] AgICAgICAgICAgICAgICAgICAgICAgICAgICAgICAg ICAgICAgICAgICAgICAgICAgICAgICAgICAgICANCiAgICAgICAgICAgICAgICAgICAgICAgICAgICAg ICAgICAgICAgICAgICAgICAgICAgICAgICAgICAgICAgICAgICAgICAgICAgICAgICAgICAgICAgICAg ICAgICAgICAgICANCiAgICAgICAgICAgICAgICAgIC AgICAgICAgICAgICAgICAgICAgICAgICAgICAgICAgICAgICAgICAgICAgICAgICAgICAgICAgICAgIC AgICAgICAgICAgICAgICAgICAgICANCiAgICAgICAgICAgICAgICAgICAgICAgICAgICAgICAgICAgIC AgICAgICAgICAgICAgICAgICAgICAgICAgICAgICAg ICAgICAgICAgICAgICAgICAgICAgICAgICAgICAgICANCiAgICAgICAgICAgICAgICAgICAgICAgICAg ICAgICAgICAgICAgICAgICAgICAgICAgICAgICAgICAgICAgICAgICAgICAgICAgICAgICAgICAgICAg ICAgICAgICAgICAgICANCiAgICAgICAgICAgICAgIC AgICAgICAgICAgICAgICAgICAgICAgICAgICAgICAgICAgICAgICAgICAgICAgICAgICAgICAgICAgIC AgICAgICAgICAgICAgICAgICAgICAgICANCiAgICAgICAgICAgICAgICAgICAgICAgICAgICAgICAgIC AgICAgICAgICAgICAgICAgICAgICAgICAgICAgICAg ICAgICAgICAgICAgICAgICAgICAgICAgICAgICAgICAgICANCiAgICAgICAgICAgICAgICAgICAgICAg ICAgICAgICAgICAgICAgICAgICAgICAgICAgICAgICAgICAgICAgICAgICAgICAgICAgICAgICAgICAg ICAgICAgICAgICAgICAgICANCiAgICAgICAgICAgIC AgICAgICAgICAgICAgICAgICAgICAgICAgICAgICAgICAgICAgICAgICAgICAgICAgICAgICAgICAgIC AgICAgICAgICAgICAgICAgICAgICAgICAgICANCiAgICAgICAgICAgICAgICAgICAgICAgICAgICAgIC AgICAgICAgICAgICAgICAgICAgICAgICAgICAgICAg ICAgICAgICAgICAgICAgICAgICAgICAgICAgICAgICAgICAgICANCjw/zUXsN0rtlUOhnhV7L1msKi0L Yx6TTU4et0YgLGKcXZjvmoPkMwtBVzPfHRItNnwUUzo7KOjzUL7UkYSdS3NoM4KfHDkaGS6VQGVeTTBh eRQzZJHvOOWgYwU1OWMcRDozMK2GdOSqCEqzUWVyCB RgNkSwFHHnZQYcGCOvIAQkVSAWHWLbUHVmKyGbEOOmVIAaBR7XLZKoY041tmItBo8XJt9ZWsXkQN7vwi 3CBqHfIPHpYfoGXjx9IQbzEO3CtKOjqZDvYcYqNUBVLsUtF5ovf3ZwGvYlDNYACWgaIB7Kj5GecMHmST o+Pb9RGJ3lf4SeMEwaCjEiPO3rty6VMIiVOoJdP7He sElqBZRuz5tpXLZeZG3pgZLaLLG0FXhah5IrI2MbWDGSSFXkW3dtuciaGvQuXNPqTY3nAk0uQDEjDSXg BuD8HLYKZY2CGMKlFFTbfPZkLUAoAXHXPL1NBHnmUSL8OJSqhrMkaNIcCMtuRJ5UZZImfnAdSkXuTZVK DQo+Tn0UDQ3jo4ZqXOqxFsTeXB5moz6QLJdNXfYpR5 U4xTYiZ5C2MZlpAj0BLAXsZXTtJcDeSUSRAXzoMY7ECV6bnpO8ZT9FtNGjMUYfLTPmuYFuLAz1B42jdV DzWWqkZN6UFCO+Greta+Mf2BQRXmFCGyFVXpFoLuQBKETrGnK4FsU4FSn6QvU9ZiRK84cSdpmzDqRHowVH 4HTO7iPKNvNLSCLR5OvELjeI7ulnCzWJQiLJYSGfJi Y67sxFObHFMzDOS7XZJyZm7ILVDaK9EvpvHoiSadytByXDVdGCBQWY0CEYucxqUyeVWbsVohOY94oIkt WD2JYa9EPtJlED1lly6WaILoCy8EUDSqQP8RPHJgBHIuTKEmYXB1NEJnDbUmGJqjLQXfPAEpXXF5KEDh MZUqBU0VMsSsVPDhGUW9ZgfmKPXcVKFdfq5ZNBQmXI T9IKJeZPWdELQqHSLaURglPAHeEWYhHHS6KRWhBRBfXJ7VEtVdJWQvNNU6OMWwTWKgJRRmyr5VHQBpQJ DhADl5QoNbLREuFRPwFLynTYUmOLV4NxWeFEIbSQPiIM8SNiCgGCBoBSl5PoMaNFYdRTJugw9KBYHgYN HaUtErMZCtEEUaHAHvMBgmRFKyPGBaFdO2LJCzWNPi NC7JZbRoAQWyKWyvIPPfKOFrONZbuy8HAPSiBKHnQyU0KTDuQNQnOCQeKXggVZLrFTIwJNGdKLTcPDAn SE5ITrCfNLZhPqVqBxazXMXyTSZqwx1PZZLqCXPoWUS8CpNoJXLpZADmHVedNNYqASK9BUxuZFPuERUu RM3ELhMlGXIqHwH0ZXPzVNCzOUJxgn1LMVHuNNLiTv C6OZHtBGGlRLQhGWhxHJQyJCA9KxRaIDGpPDIsZJ4IBeDcLESaUtzkVMLyGMTrOKQkfi0VIMPuJWYbTf V2FkUgMXRlWWIeKEicVEFxYOS4XOmmOOHvVQBeQU8XStApARLaBbumTPNgHTBhUBNwqd0YAGKaPDObVR SaMeNoZFNiWYXeVIseATDxIGP2CEX4XUTqSWHiUP2L ZxAyUQKtXhj7HDYtUDFtKQYpwj4WTZYwBEXfVEg8UPNlXSCmPFPqXEvhNJQxIIJzWFq9BRVgYFMiZH4U HiBqKKWxREYlIdKaHDBfFHYutr3SFKMtCRE5SXQkXpUzETWqVOLhVMjgAUHtMLLkERcsHQGdMJHkQJ9N JoFfCBHqMYCeUotvGQZjHEMjhd9TNGFiEJC0WuN0It VwMARlTSFnDKqmELVzDVJaPFspRMYaOIMrTQ3RMfNaBSRfCKM4YKWeHCPzSXHayg9ISXTyRVZ3THDlOi KqMBKdAXVuQUurQSJyERG1Gdu0YDZyDMNfHJ8LMhIwRYtqFMWDRvy9ODymS0l0CLDsQC0OA5Ilk6ZwDo qvFVXFHQhcVN0fapAfHGSmFd9YK1tJDhioGUt0Imjb BUGmGup8WlxuKTS5Y7UkEEF0PLTgKRC6HV5yKGW2UXKyDRU6BdEnLGh6SDTzFfo0SND3HDStZSGnKQw7 BwFmHR7CTk4GJsK9TAP1rPLzXm2PWMG9ORbIOlDhAD7AGPg= ID Date Data Source [id number] [facility]2019 [facility]27[facility] Interpretation Code Description Data Karoline rce(s) Supporting Document(s) Glucose [Mass/volume] in Capillary blood by Glucometer 108 mg/dL 70- 140 [facility] ID Date Data Source [id number] 12/22[facility]2019 05:48[facility] Value Range Interpretation Code Description Data Karoline rce(s) Supporting Document(s) Leukocytes [#/volume] in Blood by Automated count 9.9 10*3/uL 4-10 [facility] Erythrocytes [#/volume] in Blood by Automated count 2.84 10*6/uL 4.1- 5.3 L [facility] Hemoglobin [Mass/volume] in Blood 9.5 g/dL 11.5-15.5 L [facility] Hematocrit [Volume Fraction] of Blood by Automated count 27.6 % 3 6-45 L [facility] Erythrocyte mean corpuscular volume [Entitic volume] by Auto mated count 97.2 fL 80-96 H [facility] Erythrocyte mean corpuscular hemoglobin [Entitic mass] by Automated count 33.5 pg 27-33 H [facility] Erythrocyte mean corpuscular hemoglobin concentration [Mass/volume] by Automated count 34.5 g/dL 32.0-36.0 [facility] distribution width [Ratio] by Automated count 20.0 % 11.5-14.5 H [facility] Platelets [#/volume] in Blood by Automated count 144 10*3/uL 150-400 L [facility] ID Date Data Source [id number] 12/22/2019 06:04:29 AM EDT [facility] Name Value Range Interpretation Code Description Data Karoline rce(s) Supporting Document(s) Bicarbonate [Moles/volume] in Serum 27 mmol/L 22-29 [facility] Chloride [Moles/volume] in Serum or Plasma 101 mmol/L 98-107 [facility] Creatinine [Mass/volume] in Serum or Plasma 0.68 mg/dL 0.50-0.90 [facility] Glucose [Mass/volume] in Serum or Plasma 160 mg/dL 70-140 H [facility] Potassium [Moles/volume] in Serum or Plasma 3.1 mmol/L 3.4-5.1 [facility] Sodium [Moles/volume] in Serum or Plasma 139 mmol/L 136-145 [facility] Urea nitrogen [Mass/volume] in Serum or Plasma 10 mg/dL 6-20 [facility] Anion gap 3 in Serum or Plasma 11 mmol/L 8-15 [facility] Osmolality of Serum or Plasma by calculation 290 mosm/kg 275-300 [facility] Creatinine/Urea nitrogen [Mass Ratio] in Serum or Plasma 15 [facility] Calcium [Mass/volume] in Serum or Plasma 8.6 mg/dL 8.6-10.0 [facility] Glomerular filtration rate/1.73 sq M pre dicted among non-blacks [Volume Rate/Area] in Serum or Plasma by Creatinine-based formula (MDRD) >6 0 [facility] Glomerular filtration rate/1.73 sq M pre dicted among blacks [Volume Rate/Area] in Serum or Plasma by Creatinine-based formula (MDRD) >60 [facility] ID Date Data Source [id number] 12/22/2019 06:04:29 AM EDT [facility] Name Value Range Interpretation Code Description Data Karoline rce(s) Supporting Document(s) Magnesium [Mass/volume] in Serum or Plasma 2.1 mg/dL 1.6-2.6 [facility] ID Date Data Source [id number] 12/22/2019 06:04:29 AM EDT [facility] Value Range Interpretation Code Description Data Karoline rce(s) Supporting Document(s) Phosphate [Mass/volume] in Serum or Plasma 2.1 mg/dL 2.5-4.5 L [facility] ID Date Data Source [id number] 12/22/2019 12:47:12 AM EDT [facility] Value Range Interpretation Code Description Data Karoline rce(s) Supporting Document(s) Glucose [Mass/volume] in Capillary blood by Glucometer 227 mg/dL 70- 140 H [facility] ID Date Data Source [id number] 12/21/2019 07:19:47 PM EDT [facility] Value Range Interpretation Code Description Data Karoline rce(s) Supporting Document(s) ED Provider Note [facility] ESFURl7iQoXMBzJd04/VOUblWMCaq5DaIKjsFBq1BCajSVLcS1NdWZQ1gX5vLVH5GEqPUoIgDlLdMKV2 lbm [file] OTc+JA8yACs+Bw4Sj0HstgI9boYuMCm1UnSzRY1APZQYD8SUNs== ID Date Data Source [id number] 12/21/2019 05:42:17 PM EDT [facility] Name Value Range Interpretation Code Description Data Karoline rce(s) Supporting Document(s) Glucose [Mass/volume] in Capillary blood by Glucometer 161 mg/dL 70- 140 H [facility] ID Date Data Source [id number] [facility] Code Description Data Karoline rce(s) Supporting Document(s) Glucose [Mass/volume] in Capillary blood by Glucometer 213 mg/dL 70- 140 H [facility] ID Date Data Source [id number] 12/21/2019 08:54:49 AM EDT [facility] XR ANKLE 2 VIEWS PORT-[place] [id number] RESU LTInterpreted by:Neftaly Moore, MDPortable right ankle [...] rce(s) Supporting Document(s) ID Date Data Source [id number] 12/21/2019 08:39:46 AM T [facility] Name Value Range Interpretation Code Description Data Karoline rce(s) Supporting Document(s) Consultation [facility] TUGXZc7kMzNBFyQy42/ZSGnqFHLah7CfGGjsAHo5YLdnVKNmJ6GaVDP6bV2rDLE1YNaQQzXeVkRoQJR8 lbm [file] AgICAgICAgICAgICAgICAgICAgICAgICAgICAgICAgICAgICAgICAgICAgICAgICAgICAgICAgICAgIC AgICAgICAgICAgICAgICANCiAgICAgICAgICAgICAg ICAgICAgICAgICAgICAgICAgICAgICAgICAgICAgICAgICAgICAgICAgICAgICAgICAgICAgICAgICAg ICAgICAgICAgICAgICAgICAgICAgICAgICANCiAgICAgICAgICAgICAgICAgICAgICAgICAgICAgICAg ICAgICAgICAgICAgICAgICAgICAgICAgICAgICAgIC AgICAgICAgICAgICAgICAgICAgICAgICAgICAgICAgICAgICANCiAgICAgICAgICAgICAgICAgICAgIC AgICAgICAgICAgICAgICAgICAgICAgICAgICAgICAgICAgICAgICAgICAgICAgICAgICAgICAgICAgIC AgICAgICAgICAgICAgICAgICANCiAgICAgICAgICAg ICAgICAgICAgICAgICAgICAgICAgICAgICAgICAgICAgICAgICAgICAgICAgICAgICAgICAgICAgICAg ICAgICAgICAgICAgICAgICAgICAgICAgICAgICANCiAgICAgICAgICAgICAgICAgICAgICAgICAgICAg ICAgICAgICAgICAgICAgICAgICAgICAgICAgICAgIC AgICAgICAgICAgICAgICAgICAgICAgICAgICAgICAgICAgICAgICANCiAgICAgICAgICAgICAgICAgIC AgICAgICAgICAgICAgICAgICAgICAgICAgICAgICAgICAgICAgICAgICAgICAgICAgICAgICAgICAgIC AgICAgICAgICAgICAgICAgICAgICANCiAgICAgICAg ICAgICAgICAgICAgICAgICAgICAgICAgICAgICAgICAgICAgICAgICAgICAgICAgICAgICAgICAgICAg ICAgICAgICAgICAgICAgICAgICAgICAgICAgICAgICANCiAgICAgICAgICAgICAgICAgICAgICAgICAg ICAgICAgICAgICAgICAgICAgICAgICAgICAgICAgIC AgICAgICAgICAgICAgICAgICAgICAgICAgICAgICAgICAgICAgICAgICANCiAgICAgICAgICAgICAgIC AgICAgICAgICAgICAgICAgICAgICAgICAgICAgICAgICAgICAgICAgICAgICAgICAgICAgICAgICAgIC AgICAgICAgICAgICAgICAgICAgICAgICANCjw/eHBh H1xeqUJgeuQ0Z8riDv1LMu6QHP6wb2NhDGXkTKaornFcQsqVBeSqOVQzIbfNCos6UNstXW7GlQIcV2Xn A0LlYKhrXI3COEEnOAKsfCXlABQnZAJhDoZ2XXVwYBguLJ2XaWEaNAkeZTJmFXQlYhFoDIFxNSSlRKTy CNJqHZMSEFWbJTStMvTjXAJmZTXyAT5XCVWrN043pu IaEl7RGg5BZyBxQC9nmi0PBvRpORUxMjcBJwi1LAlbBE0ZxAJkpLSkZtQqYDPGQoOqU4cfa1XtCdHpII PEBPsjXI6Kd5MduPOmPJv+Wa3JHZ1hg9NjDWupPxMdAW3zus9MGQlTEwUpL3QvsMnaYPInuqR8yJQcRM X7OQhquDUciF3tWUkdmdRwGCSEGgLhdEQsNP8iBI6x KQCgIGGpXtWrVNLLLA9IGGCpPVUhaXPkGAUiVABRXI8JYEwfNRU2MSQuesIdbILkUHtaUS5WOJVflxNm MzIgMCBSDQo+Qc3RUC9wa0UbLUbwKKCyHW4mwt4LOBhLBhUsL1H2ySHeM5M3HMxxMt3LVKIcIYGrPjDz ECLBUKqkNX2BUS4fgmN8SY6CnQIvLUAwJSJinJLqKS k4Q34ypDTwNQhnRP4GVMV+Greta+Qx6MRQXvNPEdXROfNgOqCOCXQjSwS8JnW6ORn4YcM8UdLA12sNbqdh ZsBDbpQD7TCU7tJOExRPDCEO9DmDNitA2vaqOwGtLrFOBVNnQqH54ogGGgLXPwGRBdPAOtOx1ZEHSyC7 BwdrEixLmqniUyVHShYQKUNZ8GJCvuvrJpbYUxvGbz YP70yLyvAE7ZIv9EAkFeZH2kuh3JkDYuSd5HNWMmNU0IVXAuOXXjVLShRLH3EFYsUzYjSBobCJJzDBIu AXX1OUMaNCDcTU8XWtCpLGMnPjBvXdtmTHMpJQItez1XSYEiNNWzVoJaZnDzOWJkWGWpLUxmMDHbRQRb ZHR1EONlJEJtKY9RDsUwVSMlJYQjJLGrRQGjXVXnrp 5OQNAjKVXpQFVmFPHhOIYrPOYbOGniUZZcOZM6OCViZGKyWDToFM8JYwOvTPQbRNF4TKtkMPEjFTJgse 9KGRHlAYHeDEOpCtDiARUoJXLtUUomRLGhMEO3MyThVDUaKDIcGX0OMtHxRIZmVCIkVvjqKYXbYRQulh 0HQXIkGRBqGtSiOZPoROIeRVWySBpmUSCmPPU2Wjg0 PRPzJWAlJS8UXnZoUDYlJZH5JXAdSAPmBDHvic0WRKZdDIZsUXgrIAFsMGOeYPXgLWnuKUApETA1YSJp DLWtECSwFX2DIcCmUHHzPGh2RNSbWCXeJOOrdq8BSMUyEWQkTPX5ZdJpDBRlAAAiPAkbJCMaVRPuEdEg LVBaUUCqMC1QUqNmGGFqBzSwCIdyXJGtDRYozm0GME ZaSAVcAZZoDNFaQHChQLDkTGtoBMDzMWVtBlL4UYIeLKMcIU2WNhTpFJMbLwR5QlqlJWWtKOGfcl3HED NoOUVrNnn3NaKgEMXvXIDkBGgqBXNiZHOiUYU2CRCdTMVqIC3QHrDxWCXqJrNyFzEnCDLlAGFhea9VAZ PjBIAkSBD8ScApDUWzYVJeRNyoNEWhJGM4UKFdFTHj RFMqAA8RRaNoWLKaVhLbDNDgSGBcFWTiba8KQAEzUUKrDKO7AwZnFJMsSRQjYNvrTKTbBCQ7JaRdARTl EIQeSL7QSqHyJZIhTphiZvPjKEVpFKEpfe5BLZTdFVOmVqHnHQTgMRGwGZZkLCniFCRrEMW1GjD6UCBf MNVoIO3QOwBaCWziTKJHKke3QRfmL1m0RSJrOL7JO3 Akk8NlVvQrFCJATEiqDH7rpjOjMXAsIc1QE4sFWbc4OuBdZYV3YOq4WzRrS8C9LyBqTXHqPTWnNDW3Yq ojLm5aFDDrSYA4GFf2DHr7KRTaXCg1AJRjPSJfTfOdOUrjIEU5SqRbSF5IUv6TPwJ1QHI3nGGgYx0UHo l3TZCTHxMqPL4XLXm= ID Date Data Source [id number] 12/21/2019 05:28:01 AM [facility] Name Value Range Interpretation Code Description Data Karoline rce(s) Supporting Document(s) Bicarbonate [Moles/volume] in Serum 25 mmol/L 22-29 [facility] Chloride [Moles/volume] in Serum or Plasma 102 mmol/L 98-107 [facility] Creatinine [Mass/volume] in Serum or Plasma 0.69 mg/dL 0.50-0.90 [facility] Glucose [Mass/volume] in Serum or Plasma 138 mg/dL 70-140 [facility] Potassium [Moles/volume] in Serum or Plasma 3.6 mmol/L 3.4-5.1 [facility] Sodium [Moles/volume] in Serum or Plasma 137 mmol/L 136-145 [facility] Urea nitrogen [Mass/volume] in Serum or Plasma 13 mg/dL 6-20 [facility] Anion gap 3 in Serum or Plasma 10 mmol/L 8-15 [facility] Osmolality of Serum or Plasma by calculation 286 mosm/kg 275-300 [facility] Creatinine/Urea nitrogen [Mass Ratio] in Serum or Plasma 19 [facility] Calcium [Mass/volume] in Serum or Plasma 8.6 mg/dL 8.6-10.0 [facility] Glomerular filtration rate/1.73 sq M pre dicted among non-blacks [Volume Rate/Area] in Serum or Plasma by Creatinine-based formula (MDRD) >6 0 [facility] Glomerular filtration rate/1.73 sq M pre dicted among blacks [Volume Rate/Area] in Serum or Plasma by Creatinine-based formula (MDRD) >60 [facility] ID Date Data Source [id number] 12/21/2019 05:28:01 AM [facility] Value Range Interpretation Code Description Data Karoline rce(s) Supporting Document(s) Phosphate [Mass/volume] in Serum or Plasma 2.9 mg/dL 2.5-4.5 [facility] ID Date Data Source [id number] 12/21/2019 05:28:01 AM [facility] Value Range Interpretation Code Description Data Karoline rce(s) Supporting Document(s) Magnesium [Mass/volume] in Serum or Plasma 1.7 mg/dL 1.6-2.6 [facility] ID Date Data Source [id number] 12/21/2019 07:47:58 AM EDT [facility] Name Value Range Interpretation Code Description Data Karoline rce(s) Supporting Document(s) Leukocytes [#/volume] in Blood by Automated count 11.6 10*3/uL 4-10 [facility] Erythrocytes [#/volume] in Blood by Automated count 2.91 10*6/uL 4.1- 5.3 L [facility] Hemoglobin [Mass/volume] in Blood 9.6 g/dL 11.5-15.5 L [facility] Hematocrit [Volume Fraction] of Blood by Automated count 28.0 % 3 6-45 L [facility] Erythrocyte mean corpuscular volume [Entitic volume] by Auto mated count 96.1 fL 80-96 H [facility] Erythrocyte mean corpuscular hemoglobin [Entitic mass] by Automated count 33.1 pg 27-33 H [facility] Erythrocyte mean corpuscular hemoglobin concentration [Mass/volume] by [facility] 34.5 g/[facility].0-[facility] width [Ratio] by Automated count 20.5 % 11.5-14.5 H [facility] Platelets [#/volume] in Blood by Automated count 157 10*3/uL 150-400 [facility] Differential cell count method - Blood [facility] Neutrophils/100 leukocytes in Blood by Automated count 87 % [facility] Lymphocytes/100 leukocytes in Blood by Automated count 2 % [facility] Monocytes/100 leukocytes in Blood by Automated count 9 % [facility] Neutrophils [#/volume] in Blood by Automated count 10.16 10*3/uL 1.8- 7.0 H [facility] Lymphocytes [#/volume] in Blood by Automated count 0.22 10*3/uL 1.2-4 .0 L [facility] Monocytes [#/volume] in Blood by Automated count 1.00 10*3/uL 0-0.8 H [facility] Band form neutrophils/100 leukocytes in Blood by Manual count 1 % [facility] Metamyelocytes/100 leukocytes in Blood by Manual count 1 % [facility] Band form neutrophils [#/volume] in Blood by Manual count 0.12 10*3 /uL 0-0.6 [facility] Metamyelocytes [#/volume] in Blood by Manual count 0.12 10*3/uL 0-0 H [facility] Anisocytosis [Presence] in Blood by Light microscopy [facility] Polychromasia [Presence] in Blood by Light microscopy [facility] Toxic granules [Presence] in Blood by Light microscopy [facility] ID Date Data Source [id number] 12/20/2019 10:56:39 PM [facility] Name Value Range Interpretation Code Description Data Karoline rce(s) Supporting Document(s) Glucose [Mass/volume] in Capillary blood by Glucometer 151 mg/dL 70- 140 H [facility] ID Date Data Source [id number] 12/20/2019 08:52:26 PM [facility] Name Value Range Interpretation Code Description Data Karoline rce(s) Supporting Document(s) [facility] IHRXVp0nXdPTRyPj06/SVVvhAZKru1UcNHjvGMj0WNdzTLEvK5RkIQH9qM3hQZB2QFqRVtUdVnZpJQI3 lbm [file] CYAPk0tjFQiD5wUV63JZvP6ngnk1yDmdI9Mc/Y [file] YTXkWmhbSzOkWPUcTBI8PYo7EDr8SM2dXZKCCn4+OQixvQPayNpkXPTTEtWfCfW9NFemHXKDFi4D ID Date Data Source [id number] 12/20/2019 08:47:15 PM T [facility] Name Value Range Interpretation Code Description Data Karoline e(s) Supporting Document(s) Leukocytes [#/volume] in Blood by Automated count 10.5 10*3/uL 4-10 H [facility] Erythrocytes [#/volume] in Blood by Automated count 3.24 10*6/uL 4.1- 5.3 L [facility] Hemoglobin [Mass/volume] in Blood 10.8 g/dL 11.5-15.5 L [facility] Hematocrit [Volume Fraction] of Blood by Automated count 31.1 % 3 6-45 L [facility] Erythrocyte mean corpuscular volume [Entitic volume] by Auto mated count 96.0 fL 80-96 [facility] Erythrocyte mean corpuscular hemoglobin [Entitic mass] by Automated count 33.3 pg 27-33 H [facility] Erythrocyte mean corpuscular hemoglobin concentration [Mass/volume] by Automated count 34.7 g/dL 32.0-36.0 [facility]th[facility] distribution width [Ratio] by Automated count 20.5 % 11.5-14.5 H [facility] Platelets [#/volume] in Blood by Automated count 154 10*3/uL 150-400 [facility] ID Date Data Source [id number] 12/20/2019 09:06:39 PM [facility] Name Value Range Interpretation Code Description Data Karoline rce(s) Supporting Document(s) Bicarbonate [Moles/volume] in Serum 27 mmol/L 22-29 [facility] Chloride [Moles/volume] in Serum or Plasma 102 mmol/L 98-107 [facility] Creatinine [Mass/volume] in Serum or Plasma 0.74 mg/dL 0.50-0.90 [facility] Glucose [Mass/volume] in Serum or Plasma 169 mg/dL 70-140 H [facility] Potassium [Moles/volume] in Serum or Plasma 3.7 mmol/L 3.4-5.1 [facility] Sodium [Moles/volume] in Serum or Plasma 138 mmol/L 136-145 [facility] Urea nitrogen [Mass/volume] in Serum or Plasma 14 mg/dL 6-20 [facility] Anion gap 3 in Serum or Plasma 9 mmol/L 8-15 [facility] Osmolality of Serum or Plasma by calculation 290 mosm/kg 275-300 [facility] Creatinine/Urea nitrogen [Mass Ratio] in Serum or Plasma 19 [facility] Calcium [Mass/volume] in Serum or Plasma 8.8 mg/dL 8.6-10.0 [facility] Glomerular filtration rate/1.73 sq M pre dicted among non-blacks [Volume Rate/Area] in Serum or Plasma by Creatinine-based formula (MDRD) >6 0 [facility] Glomerular filtration rate/1.73 sq M pre dicted among blacks [Volume Rate/Area] in Serum or Plasma by Creatinine-based formula (MDRD) >60 [facility] ID Date Data Source [id number] 12/20/2019 06:47:12 PM [facility] Name Value Range Interpretation Code Description Data Karoline rce(s) Supporting Document(s) Operative Note [facility] NTEZNc1tWbQOKpFv22/GVIwgLSIiq6OiHWhyAAr7CWthEFYtD8TgCCC4mV5gHPW5LBdFIcHwBdNhHQE3 lbm [file] GJiUZqPsVF2YZQg= ID Date Data Source [id number] 12/20/2019 04:32:01 PM EDT [facility] Name Value Range Interpretation Code Description Data Karoline rce(s) Supporting Document(s) Consultation [facility] EFHKIl3cTqNZLzKc97/JNMrlOCWee6LqXCvzAKr7LUtuNCDzT9UoKTL0pS5yODZ6VIaLBuLdShHmDVJ6 lbm [file] AgICAgICAgICAgICAgICAgICAgICAgICAgICAgICAgICAgICAgICAgICAgICAgICAgICAgICAgICAgIC AgICAgICAgICAgICAgICAgICAgDQogICAgICAgICAg ICAgICAgICAgICAgICAgICAgICAgICAgICAgICAgICAgICAgICAgICAgICAgICAgICAgICAgICAgICAg ICAgICAgICAgICAgICAgICAgICAgICAgICAgICAgDQogICAgICAgICAgICAgICAgICAgICAgICAgICAg ICAgICAgICAgICAgICAgICAgICAgICAgICAgICAgIC AgICAgICAgICAgICAgICAgICAgICAgICAgICAgICAgICAgICAgICAgDQogICAgICAgICAgICAgICAgIC AgICAgICAgICAgICAgICAgICAgICAgICAgICAgICAgICAgICAgICAgICAgICAgICAgICAgICAgICAgIC AgICAgICAgICAgICAgICAgICAgICAgDQogICAgICAg ICAgICAgICAgICAgICAgICAgICAgICAgICAgICAgICAgICAgICAgICAgICAgICAgICAgICAgICAgICAg ICAgICAgICAgICAgICAgICAgICAgICAgICAgICAgICAgDQogICAgICAgICAgICAgICAgICAgICAgICAg ICAgICAgICAgICAgICAgICAgICAgICAgICAgICAgIC AgICAgICAgICAgICAgICAgICAgICAgICAgICAgICAgICAgICAgICAgICAgDQogICAgICAgICAgICAgIC AgICAgICAgICAgICAgICAgICAgICAgICAgICAgICAgICAgICAgICAgICAgICAgICAgICAgICAgICAgIC AgICAgICAgICAgICAgICAgICAgICAgICAgDQogICAg ICAgICAgICAgICAgICAgICAgICAgICAgICAgICAgICAgICAgICAgICAgICAgICAgICAgICAgICAgICAg ICAgICAgICAgICAgICAgICAgICAgICAgICAgICAgICAgICAgDQogICAgICAgICAgICAgICAgICAgICAg ICAgICAgICAgICAgICAgICAgICAgICAgICAgICAgIC AgICAgICAgICAgICAgICAgICAgICAgICAgICAgICAgICAgICAgICAgICAgICAgDQogICAgICAgICAgIC AgICAgICAgICAgICAgICAgICAgICAgICAgICAgICAgICAgICAgICAgICAgICAgICAgICAgICAgICAgIC AgICAgICAgICAgICAgICAgICAgICAgICAgICAgDQo8 C8hiBEKnABFaPO9gROa9Jx0+PIhVSfOaKUK2tgGfcY7XEB0mx7IiDVfxNMTni9BbMVx8MF4DZZMmTNyb HF8ZIMswjf7VKGPcUGXuvYJEe9mcKrRiDQO1NXYfMublUW7XREXiZ4wqxmMjJNDlERADQHltJLWNLMeg THITRLFgIJPhEqAgXpEtEUZdVL4CSPYqC942jmCvPK 1KFg6PTlPcTK9mcg6WSpLiEHRrJljQCng2MJhhJH1NmCOteSGyRjXlSPDENeFpY2jsd2EpKhJlGRULGZ gyGQ0Mw9LjzLAdMIs+Yc9AUH9ld2ZzTIogXvAcES8kvr6PCRrVFvTgV7BtfMngDLCkkgE5qHUlKNQ7UQ GqfXJlwL6zVJXLKPRcbCnomz5sZJ2ZFAL8SLRiNfX0 KsZqVuCeJXd2TIWxGV6bSAaaWE6KSHY9VHkoFSXnWIUdP9vBYwSjHSF9BmCbjYhyLZ8YGqFvT1KucrWy dCAzNSAwIFINCj4+PWwdkuVeJjiXFkV9KHWen7LjRNr4TB7KRRIgADeuLB3YVQCfoU4bHJkbFN9HNkWb QvTlOYIEVaUnM38mmDSaUCp9P1OyXqEyFIKhQwkpZL MgPDwvTmFtZXMgWyBdDQogID4+ID4+SSbyHK1GRAulubCdCNKyFd5BBAJzZYJgDI1eDODqESLnS3E6cU meRPOPNcZzW4aorskqWG3xMASzZ509uOidfnQsHUW4QCTrYa4NDOWmYSQ6HIJnlLTgNlJeNEKZRTlmBO 7MnJNvZYJ9rZ0uFLzwJTTnOKDoU8tUEiMtxBlaNW56 bGwgbnVsbCBdDQo+Yd9PDO9bi4UoQWz4igSvNGanMYZ5ASqtZBJdMVRiLWLeYHM5YKW3GGECIyHaZQNl HTAoJPqkJBJtFNObat6ADDRpRVU8VvtqZWVjAKIwOLFmUPhzMHKpPSR0PXwdABGjMIImHC9NFfWuZYVi TROwMZnnDVFdXJXmzr1KPWKyJXWfKfC8LYBmGQTfZS ViDRbrIJIiHCAiNYg2KYLbQINaYQ1OMbIcNJHiOOY2LONhSJRzSEUgdq5WGVKoLFXpBmu5RMWoSUQeHS LdLVifKMJiJXG5VWReFRDzJICkTL8AGaTpJAEbMKnrNSGaAIPdIRUxrx3TYDHyYHSpYfEqPNUfGORzWR OlZBecNDDhTXUfOiG8WISrIYJaKI6KIdYxCFJhYASz XBXdQNKgODNlmn0ABRGpOLHkYUJ1NaYrUVNjZBHxTSseLAEiWIS8CbO0XUCwMCKcKC2THrItCRKwLXM7 ECAoDLBpYUAbni7PKHTtUHOgAUM1NdLnLSQlAFSySRxbFCKsLNA7SIE2FATdYPXcOJ7FGfAgHJNuXYO2 CMouZRGtVZTyxj8LWGHtQVXyVkvwATBuMNCoIEUqEQ meAZMaSRI6UTM9DMLrFEBsHM3AAxKrNZWsMzpoTbHcAGAyOMHozy7GSOUwQRLhWPG7GXIvWFTfBYJbTM uyZJMxYGQ6RCg9DPSqZSMoQG2ECtUtZWTqDSSnRqIzWNMmLEOfsb5RPSXfSVB6IKH3COLyVBGuHJXwKS yuFJDuRBUgZvG4MSEaEIMzWV9KBgApQCSyTTO2IyDa KIRfMCRmcp1DLFIeFYX4CujyJRBxFKJeLADmCEueRLMcNXAsHUToVTNqOGLqSI6OXdZvDJDvORRlJpWl XEYfBHBnrc6DXQVbQTH1TnI7MRToWCImANIlFHwpXQUyAPQhNxW1GYPnRFLfWF3UWwRaQQCwMYJcRMJz LZLnOQHuvb3QBBVpUZT6RHNgYBXvGTFxZGVnUNtlEP EmGOE2Jju7YKQqVTDhOC4TDgYzVPCiTCM3YtVuADYrMEKiwt6OiDBjhBqbsj0HDRqJXp7NsSwcPOY3VP hgAv1soPPeEjCgNSSLPm0GpnZfGQAdGUNVODaiZWHyTOQxBLzdJjIzUTX5SgDmGXWkHKhpKWuhEXBqWw LaONU4LdQ7PgMcAAPpLSJtTMkbKtN6B7TvY3O2ZXXc Z2JsNHHoQLu+ZZ3aEFx+Tx6Ev9BbgwU7hsFxERj6IjS5PU0XKBJPC1KXRm== ID Date Data Source [id number] 12/20/2019 02:14:25 PM EDT [facility] Name Value Range Interpretation Code Description Data Karoline rce(s) Supporting Document(s) [facility] XJWWDy6kMeHQEsUxz5DpBuIiEQCgRP0ifva7U6L3yXOnV6DzvYKva1nxN5TmW0LfDWMvBSXPFP4XvGNp jb2 [file] SHIPPING CLERK/OWjRuUOIPPbGc1m8S8bZMpdFO9WF3SwDIULkwTmZ+M7feqz714XfUAgpSRzJP0Q1jcy8fUaiteOKR WHCLZSuMFloDf50Ye2ZtgRj1M9ZYOBUC8fPUAMYBbH [file] 55Yx5zZ9rkpsG90+5os33+HDnv02E1//3po7fv/d99/82v32U9926cCPA99++wBMx918/Ou377/56tcf Tp007sxk/OzDx19+/dJ2u96kH4/9/eMY66w0+/jh08 xaThf5895/Up2XN/u65I+q3qQletWP1+2rb77/5v4qM78o0Mh//DM/e32BXz/7+N3H/+kd484ae//x7V eff/y86qM3k3136/auwu++/7u/+/Ddp/dQuLZ9r/x51faQ42u/zBfff/69y3ayye4au++/+PTVt9+8ff nh689/46hw12SSW4/3241bs0/dgu1z4s/yt59/90Ve 4+dff/vF//3TP/vfZl57q805+yiMs86532xNP7s6p7914dly2A3+//WHt89//c3000t9+odDG6052zbi b/6af/pam0u8CR84+FN9+/X7y/j4/h6+/vD5l9/9mV+/3D7/xw4o7kNPy/fTn/tCsGDwZ395499wn/X5 ke0lsv2AL89+2xjJ34z/+/asn33+/d+DbFX8eT4/9W cu8/UlHig2v3Hr/3+9f/P6Ek3Bk+/Hub8u+MUf//Avv/vT73/457f/8r/ffvnHP/6P//bDn/77Dz/81d t3v/0f//67t1/99p9/+/aP/2n1f/zLtz/+4b09/U2bf+OP+x3b83U4M/lXv/wPRtjOpWX+/vd/82+8t+ 9VsHur0x//GvyrZRU/nl/4kdG0sDrY++vnrxWsJxGq N5h0B4SdE9XW6kit0Wvmjx0In/XFext/e36qMs/08i7kk3/54U9/he623jr83bho//rzT99+/RN9hmbk LfLdhL/9UZX7j/5b6v65/3mSCAxx940xwnFsk/8D415HVZZRvND73VS8+oc//Ptfv/3pt//+46u/Ow9v jONG76e/58tytLjWxk+ldemzxCh53K/+/Yc//a/f/u onwqnG3B0mD09+3+f+6dUP9/unu1x69//5/uy/++Ycagx4D1wfA3dJT1fl8s/9zd9/+ie+cnsE/Gjrb9 5HKD++gzg9HRrj1Bldjjre/gM59o+uPUlK/+odXy6TR/m6i46qx/1/fvi3/5bA8wj15Mb/+fuvf/Y6we u3Nw2Gt/73n/7xL3/y6/Mm/vaH3//2X3/0ju1H/Be/ /Z//9Nt/+91v//CTKxxtr/m7P/z0/7ftyPOv/+U//oil5tDs//k5n63i2Fp/OPX9+o//2Dgzjo0NXRDv ePGffvin//aH3/3T+/O14s0c9uew85vy3qHcp/zek5/E7//n249J694/+/lSO357Jp50LqpsQyZp9cqk /ynd7xckG//c1Wap4mO2krr/9vbhveW/f5g/fPnps7 r2pa58r9PKA/OfJ9997jA8CA/pZ1+D48+/+AEn7333/21/+ivIbOUU/G8fXSihJyHhZJQ5uoTdyPsrni MxWzfEIYajISVtPot5HM6TaMMuNMTpR5U1VKMkhk6bWNMyUSRjuQJhIjEoMTFWGG1KqLHsMA5HXWs9GQ JjSGMoYxZoBDEftfT3DWUtGPHbJVIgW5YserSigTJa IDAgUj4+AA6ru8PxXsErEDZvRsn9OK8ShFNfQU9UzERkhC8hubLsZ060ojStYTIzCimsq9OlFNedGFSU FI2AGWP7MMP1FOHxFz9+EF3fx1GaXwOpZKXnYmr8DB7IaAAct9EzGG3KV8OaRWKnZLPBTZP5c0PgFRAj ckdubiyrU2EkNMF6uU5oRXB8EHWyDZfcZSVmVDAqUY T9JSCqZQbpGOReSHMzCHKiNMZxWTg3bMZwLO1FV7IpSOXaHWODADZrceYaEu5rHZfTUWBRCODJJ4DAXi MfAvq6MsonJBxvJ7M1LuspK0ZzFV2AC0OuCYXhJXDMNBQlmlDlMJ3CsjNdkV1bDQeAQTQTCDiVVGlaLn K9l75qpfSMKKUfKUJlIQbwLWYsEHXgZAZcSDHrRKMi EICkJWPyFI2VY7AdYSKuHCKLYAF4j4WzIHHldtwlfnrnEq2vvjAiQrv+JrtbEFTsz6HrYVgrO8S0oXGd L5VmI6DxVT4PeNSqSTkzIUAkBJMcCGBoD576oaOlLX3+ZI2xh1AkQmojQYOYMONlVPZlSCQjDPO3ByHt DZEdQUGfLQUeNbL6DzFgVxQRZYUtPBH3GTg9KWMxIL UkSRIfHAuyEGMzJDQ6PYDjGPUtUGXgBR1qNqGlWSObBvR2YoHxUGNhMRYcewGIFQOnZORxREImGLR5QY ZjLXRjJHobMOWvHPHuQOG6NQHqZHJbBW2vLdYpBUQrEFPkTsjpSHYkKCTivhEMDFWlURCmPXG0RoAtOC LlJMRkTXqpOATtXMUsHng5HZTrRKMrGK9gAwLtBJNo URH5ALcmJRAhKTLzbpTWUUUbTDSgOBOhKrMnATEpWCTpJXqtNMXcGJMjDkHwCYZkMEBjLM7lAoRcZKGl IJW9RETzRLSmQBDagsRHHIPbVVToWSh7WOYeKMXtYWEaDYtiYENuZMIrBEJ0HXUlFEXkFX2kWkZgXUOy KUHrMKXrQOVbUQGctpCNICEiSPVtVSR5XAAuKAHfFC OzUBhvTDGlMGKqFxk1WTElLYRnJQ1gPwYgWYJbKJT5OXVzSPCtUNIbtxNGNIXeEZD8CSJ3FSTkWKNrDB OtKOngUVQfSIXxIbW7WUBvJHVaAS1yQrWdDIXsTNU4FhNqGKRbUUTmouHZSYYoBFOyPCW6YgDrOBWgYU HfMNsaNYNzUMXkOLMeECD5PGH7CHSiIcTrUEerYDOE YSaRU2CchaQtInSZM1ayAl7oCpBuJDSNH2Tkx2WpXKWuMCWIQb9+TnR1AFF8pTWjUwe8FNl8UOezXUAW Rg== ID Date Data Source [id number] 12/20/2019 11:22:22 AM EDT [facility] Name Value Range Interpretation Code Description Data Karoline rce(s) Supporting Document(s) History and Physical [facility] HNVTYg5oNnKTGbTe54/SMIdjJIPki8JsQXgoZEr7GPbwCEAvQ1KiNWW9bK3tGIA0THeOXkXfPwBgCHE7 lbm [file] AgICAgICAgICAgICAgICAgICAgICAgICAgICAgICAg AJCgODQrEYBaWVZdVIJfRPQvYXRaRMLfCEWeNF4UUIUfDYLyOMPgDCEzTIXlXDSfIJIkSJCpNSXeJRRl ICAgICAgICAgICAgICAgICAgICAgICAgICAgICAgICAgICAgICAgICAgICAgICAgICAgICAgICAgICAg UWFfHFPeFBBjTY8BRMBgTQUsXPWvCMZeKFBlTPOqCO AgICAgICAgICAgICAgICAgICAgICAgICAgICAgICAgICAgICAgICAgICAgICAgICAgICAgICAgICAgIC NhTVFkRSKyABKlAPMlXMGyHKZmAY7OCOSpLNQbEEEeEZNmPJKbKHZlNGGoZXXlVVLkAPMeHGEbDYYjIH AgICAgICAgICAgICAgICAgICAgICAgICAgICAgICAg MBMkQFHgPNRcYHEaKYOiQEGtDQQdTABhXNVtVZDnWT1OFHAkSMQeMCZjBHKiHGRyMWFsHJTkDPGnCBAd ICAgICAgICAgICAgICAgICAgICAgICAgICAgICAgICAgICAgICAgICAgICAgICAgICAgICAgICAgICAg GUGgQRCpQULgMRZjIY7GQOBcLVZeEQIuKLSxYDXrHS AgICAgICAgICAgICAgICAgICAgICAgICAgICAgICAgICAgICAgICAgICAgICAgICAgICAgICAgICAgIC NoBKTwULFqFYZpXARvNMFoRGXeWULbEK8DVSUcQSDzJFGnQEIsZIOaHNUtFFVtTPGiFDXgLUYdCURwZF AgICAgICAgICAgICAgICAgICAgICAgICAgICAgICAg CGJgDNIjZARsAUAbTMScOOMfQJDdPYJwBCBnMVJyJLWeFH6VZXSlNTYdQKIiTHNkGJXiZAYpMCKrDVZx ICAgICAgICAgICAgICAgICAgICAgICAgICAgICAgICAgICAgICAgICAgICAgICAgICAgICAgICAgICAg MXGgYRRhHLGxFPWxSRDdBG1IPBIfYRDsOPAwZLEmZY AgICAgICAgICAgICAgICAgICAgICAgICAgICAgICAgICAgICAgICAgICAgICAgICAgICAgICAgICAgIC IwNHHsBNRnBTNbWMJnZBFmKCVjUIZsKVJaZZ9INFFfYJFrCEEtPSLoXERyFWNzNTVgTJYhRDOyFJFtNL AgICAgICAgICAgICAgICAgICAgICAgICAgICAgICAg AOVyFRKyLGUnBMLdZJNsPVEmBDCyEPTvESIjUHLcGDArCZWsVS8QTA29wDIxs7G0UDCwKY7jnfq/Pg0K XIlodlAcvGQkAP3MAdLjNZ2oin4KNkLkOA3jnn8GQNdDFeRbC5T5pINbEBLlFNVNXiKvW88dJLgpGy53 POmfQMBnNoIdRSt5Qv5VVqMrJ0jzOBFqOvV2WRWoVc J8QDSxOyV5DTPnCrZjPPXrXGBxGZAgVKKGMCR2OLRjKuPkMjMmJKJbED1NZYHwS568cpDmHn7YNf3EUw PkKP8ymp7JCykjZIIsGrkOCli2BTzyRX4RhTOsiMGjDZHrVYRHLcMbE2ixq4KfMjbbDTJQCTjnAE3Yu3 VudCAxDQo+Ug2FTI4la4OsYZjcUOBwCG7wta5UEJuK PuBeR1NmbLezDJioAGVbkRXObDRtdoJEBN2mH3vhAF0kHKOSIMGiiSBwWD9sZQ9zMCLtXRRcPtI5PWWE LS3CQVTwEFRxtXMwQGZmTRWEOG9VYQdzWKS3CPBsowUxqTGdCWsdSH2XUJSeikKqNljaHAPJYTv+Pg0K HX4my6QiKVbaOOJbLP4odt6UYDiIDhVeR8O9kSXlV5 G5LYjhKl2ILRCiELYvIiMnHRVCZTfiTX6GQI1ovxO1IZ5QmBXeJUHwFCAfzTAbWFv8J03pcRJoZJkvQO 0KICA+Greta+Mv3MXKMuIVXjYCTlZkAkHCZKHuVqD1YjO3GVb9SlK5QrUZ63mYbtmoIxWNprHX4ZPC7aLI ZoZVXKSG6ZhHAhbP4uaiGtLpRvGYSQHlJnF19zwTSp VSCsASY1LIOhFh3KHYWlM1ZwnxMmuBylemFaUJOcEAKOSL2MMMmjhbAagMQslBqcCV65qIgpSG0IKl3W IiAoCS1tch3ZcBQuKq2LKSU1UW7GDXFmFOLvMZUtEYF8MGTaOpQvMHbmRUMaIKXmPEU2VCIxRBKaZG2F AvKoKFXtDBM6MtCiMZAtTOEdzx4NJUAhOOP5FlclBn AiHOKrSUTrQEvhFXHcLBOjJLE6GWLqLNWxKE5CNcIfFMVeGPVnQlfuGFExRNYuck1MRVGpNMQlEIJ4Sy GcFLUfJYUpWNhcQMPaACZ2ZfU1RIQbRBPeFE8MQkTwAQJcFWt5VRZvDQYzYMJdgg2RJZGvFIMbXBi3BM LmRZGpXYTgMWbvODLxXPHsJTi5WRPmUNTxFN8KUeUt HLVcLAF2KOvbDBTyCOVslc6LJZMyQSXtEAv3WqHiFCAwAFHzOJqyCRJcGXU5Tpm6BVUkZIDtXX3DAeUp XCRmZAm1YHJvUTRvSIUyvk5ZBFGtIHBwLDO2KPAmSQUvOTXuHXiwCDSvUTKlJPR3HVDoACCqXC4FOwTl MFLsUqMkURTfUBHwBFTqpc9WHHYwTICxTDL4HDMoOZ QtCGYrHHszXYIePEB6HeI7GUKxOPTfVT4GWwSkFERjUzJ4JMGrZZDlEPEcvu3GBRNmIHUnOTS2DEPjLS MeSDAzEXvrTCDbSRD9AiP2FQKhBBXyCQ3CJqIpIECzZjB9TOrkTZQoFVImbk0DZYVtNTEhCeHrWwWcFN RbCUHlINhpDQIaRFR8VTGbTSCsBJHoTA8ZSlIrBVPg Wvw1RFTlPHPsQZUunu1LOHJlUQApEAx1FUGtXJTdBHAmBIpcHHGlAQY4BIt1UQGqAIJfYC8KBkRrZNVj PpsmEcFpPMHbLIAzst2JETCsYMY3UFC9IUObQQClAOCqCGuvKXOcVHOiVYX2BQBeTFVjRI6ZJtFsGLDh OJJ4AHMtFVPsZSPgtv1RZLUaWBQ6JXD0LLRkKKXaDP OjEFfyYTXkMVEhMcD1LLCiZZMcXX2XJlFyKYBgRVL9MKGhPYKzAQRhyk3CHCBjNPP8CeY3XvHqGUBzJW AaEPmzDUPmVYVaLPBlBJWeHOEpMY4CSiHjCYFxJHX3GgBfGFQsDKXcrd2HDYOoWYF3BBN6EaBiVTEkCG ReQJc7erXpiWXxTZp8YB8ZA7KgwwUjBZECLk5Rh684 RBV9BBReWg4AC7dkZf7eISFvCXLGMm3TMEo9MYGxEOQsFfPlD6XqQmNjGJH9YBKnFwJjSPvmCBZ3PzJ+ QZd6GkCwMLQjO5SwFtTdVJXeAIK0LSF8OMPuNZX7CnGeLY8uLHPEJy0+NVwpdYEirAdwYQYGRrR1MdQ3 GKvkAORVPl2L ID Date Data Source [id number] [facility] Code Description Data Karoline rce(s) Supporting Document(s) Glucose [Mass/volume] in Capillary blood by Glucometer 105 mg/dL 70- 140 [facility] ID Date Data Source [id number] [facility] Interpretation Code Description Data Karoline rce(s) Supporting Document(s) Magnesium [Mass/volume] in Serum or Plasma 1.7 mg/dL 1.6-2.6 [facility] ID Date Data Source [id number] 12/20/2019 04:33:24 AM [facility] Value Range Interpretation Code Description Data Karoline rce(s) Supporting Document(s) Bicarbonate [Moles/volume] in Serum 23 mmol/L 22-29 [facility] Chloride [Moles/volume] in Serum or Plasma 101 mmol/L 98-107 [facility] Creatinine [Mass/volume] in Serum or Plasma 0.62 mg/dL 0.50-0.90 [facility] Glucose [Mass/volume] in Serum or Plasma 133 mg/dL 70-140 [facility] Potassium [Moles/volume] in Serum or Plasma 3.4 mmol/L 3.4-5.1 [facility] Hemolyzed Sodium [Moles/volume] in Serum or Plasma 135 mmol/L 136-145 [facility] [facility] Urea nitrogen [Mass/volume] in Serum or Plasma 15 mg/dL 6-20 [facility] Anion gap 3 in Serum or Plasma 12 mmol/L 8-15 [facility] Osmolality of Serum or Plasma by calculation 284 mosm/kg 275-300 [facility] Creatinine/Urea nitrogen [Mass Ratio] in Serum or Plasma 25 [facility] Calcium [Mass/volume] in Serum or Plasma 9.4 mg/dL 8.6-10.0 [facility] Glomerular filtration rate/1.73 sq M pre dicted among non-blacks [Volume Rate/Area] in Serum or Plasma by Creatinine-based formula (MDRD) >6 0 [facility] Glomerular filtration rate/1.73 sq M pre dicted among blacks [Volume Rate/Area] in Serum or Plasma by Creatinine-based formula (MDRD) >60 [facility] ID Date Data Source [id number] 12/20/2019 04:33:24 AM [facility] Name Value Range Interpretation Code Description Data Karoline rce(s) Supporting Document(s) Phosphate [Mass/volume] in Serum or Plasma 3.4 mg/dL 2.5-4.5 [facility] ID Date Data Source [id number] 12/20/2019 06:05:01 AM [facility] Name Value Range Interpretation Code Description Data Karoline rce(s) Supporting Document(s) Leukocytes [#/volume] in Blood by Automated count 12.5 10*3/uL 4-10 H [facility] Erythrocytes [#/volume] in Blood by Automated count 3.25 10*6/uL 4.1- 5.3 L [facility] Hemoglobin [Mass/volume] in Blood 10.7 g/dL 11.5-15.5 L [facility] Hematocrit [Volume Fraction] of Blood by Automated count 31.7 % 3 6-45 L [facility] Erythrocyte mean corpuscular volume [Entitic volume] by Auto mated count 97.5 fL 80-96 H [facility] Erythrocyte mean corpuscular hemoglobin [Entitic mass] by Automated count 33.0 pg 27-33 [facility] Erythrocyte mean corpuscular hemoglobin concentration [Mass/volume] by Automated count 33.9 g/dL 32.0-36.[facility] distribution width [Ratio] by Automated count 20.0 % 11.5-14.5 H [facility] Platelets [#/volume] in Blood by Automated count 188 10*3/uL 150-400 [facility] Differential cell count method - Blood [facility] Neutrophils/100 leukocytes in Blood by Automated count 90 % [facility] Lymphocytes/100 leukocytes in Blood by Automated count 1 % [facility] Monocytes/100 leukocytes in Blood by Automated count 5 % [facility] Neutrophils [#/volume] in Blood by Automated count 11.29 10*3/uL 1.8- 7.0 H [facility] Lymphocytes [#/volume] in Blood by Automated count 0.13 10*3/uL 1.2-4 .0 L [facility] Monocytes [#/volume] in Blood by Automated count 0.61 10*3/uL 0-0.8 [facility] Myelocytes/100 leukocytes in Blood by Manual count 2 % [facility] Metamyelocytes/100 leukocytes in Blood by Manual count 2 % [facility] Myelocytes [#/volume] in Blood by Manual count 0.24 10*3/uL 0-0 H [facility] Metamyelocytes [#/volume] in Blood by Manual count 0.24 10*3/uL 0-0 H [facility] Macrocytes [Presence] in Blood by Light microscopy [facility] Anisocytosis [Presence] in Blood by Light microscopy [facility] Poikilocytosis [Presence] in Blood by Light microscopy [facility] ID Date Data Source [id number] 12/20/2019 03:09:39 AM EDT [facility] Name Value Range Interpretation Code Description Data Karoline rce(s) Supporting Document(s) Glucose [Mass/volume] in Capillary blood by Glucometer 146 mg/dL 70- 140 H [facility] ID Date Data Source [id number] 12/19/2019 08:40:18 PM EDT [facility] XR ANKLE 3 OR MORE VIEWS [id number] RESU LTInterpreted by:Kim Alexis MDINDICATION: 54-year-old female [...] rce(s) Supporting Document(s) ID Date Data Source [id number] 12/19/2019 08:38:[address] [facility] [address] LOWER EXTREMITY WITHOUT CONTRAST [id number] [...] rce(s) Supporting Document(s) ID Date Data Source [id number] 12/19/2019 08:35:28 PM [facility] XR CHEST FRONTAL ONLY [id number] RESULTI nterpreted by:Edward Lester, MDPROCEDURE INFORMATION: Exam: XR Chest, 1 View Exam date and time: 12/19/19 08:15 PM Age: 54 years old Clinical indication: Other: Pre-operative evaluation TECHNIQUE: Imaging protocol: XR of the chest Views: 1 view. COMPARISON: CR XR CHEST FRONTAL ONLY [id number] PORTABLE 10/09/19 10:24 AM FINDINGS: Lungs: Unremarkable. [...] rce(s) Supporting Document(s) ID Date Data Source [id number] 12/20/2019 04:30:44 AM [facility] Value Range Interpretation Code Description Data Karoline rce(s) Supporting Document(s) Hemoglobin A1c/Hemoglobin.total in Blood by HPLC 6.3 % 4.0-6.0 H [facility] (NOTE)<5.7% Average risk of diabetes (ADA)5.7-6.4% Increased risk of diabetes(ADA)>/= 6.5% Diagnostic for diabetes(ADA) Glucose mean value [Mass/volume] in Blood Estimated fr om glycated hemoglobin 134 mg/dL <126 H [facility] ID Date Data Source [id number] 12/19/2019 08:58:18 PM [facility] Value Range Interpretation Code Description Data Karoline rce(s) Supporting Document(s) Prothrombin time (PT) 12.7 s 12.5-14.9 [facility] INR in Platelet poor plasma by Coagulation assay 0.95 [facility] Routine intensity oral anticoagulation I NR is typically 2.0-3.0. Target INR must be clinically individualized. ID Date Data Source [id number] 12/19/2019 09:08:13 PM [facility] Name Value Range Interpretation Code Description Data Karoline rce(s) Supporting Document(s) Bicarbonate [Moles/volume] in Serum 24 mmol/L 22-29 [facility] Chloride [Moles/volume] in Serum or Plasma 99 mmol/L 98-107 [facility] Creatinine [Mass/volume] in Serum or Plasma 0.53 mg/dL 0.50-0.90 [facility] Glucose [Mass/volume] in Serum or Plasma 168 mg/dL 70-140 H [facility] Potassium [Moles/volume] in Serum or Plasma 3.4 mmol/L 3.4-5.1 [facility] Sodium [Moles/volume] in Serum or Plasma 133 mmol/L 136-145 L [facility] Urea nitrogen [Mass/volume] in Serum or Plasma 16 mg/dL 6-20 [facility] Anion gap 3 in Serum or Plasma 10 mmol/L 8-15 [facility] Osmolality of Serum or Plasma by calculation 281 mosm/kg 275-300 [facility] Creatinine/Urea nitrogen [Mass Ratio] in Serum or Plasma 30 [facility] Calcium [Mass/volume] in Serum or Plasma 8.9 mg/dL 8.6-10.0 [facility] Glomerular filtration rate/1.73 sq M pre dicted among non-blacks [Volume Rate/Area] in Serum or Plasma by Creatinine-based formula (MDRD) >6 0 [facility] Glomerular filtration rate/1.73 sq M pre dicted among blacks [Volume Rate/Area] in Serum or Plasma by Creatinine-based formula (MDRD) >60 [facility] ID Date Data Source [id number] 12/19/2019 09:59:03 PM EDT [facility] Name Value Range Interpretation Code Description Data Karoline rce(s) Supporting Document(s) Leukocytes [#/volume] in Blood by Automated count 13.2 10*3/uL 4-10 H [facility] Confirmed Erythrocytes [#/volume] in Blood by Automated count 3.29 10*6/uL 4.1- 5.3 L [facility] Hemoglobin [Mass/volume] in Blood 10.9 g/dL 11.5-15.5 [facility] Hematocrit [Volume Fraction] of Blood by Automated count 31.5 % 3 6-45 L [facility] Erythrocyte mean corpuscular volume [Entitic volume] by Auto mated count 95.6 fL 80-96 [facility] Erythrocyte mean corpuscular hemoglobin [Entitic mass] by Automated count 33.0 pg 27-33 [facility] Erythrocyte mean corpuscular hemoglobin concentration [Mass/volume] by Automated count 34.5 g/dL 32.0-36.0 [facility] Erythrocyte distribution width [Ratio] by Automated count 20.3 % 11.5-14.5 H [facility] Platelets [#/volume] in Blood by Automated count 180 10*3/uL 150-400 [facility] Confirmed ID Date Data Source [id number] 12/19/2019 09:16:58 PM EDT [facility] Name Value Range Interpretation Code Description Data Karoline rce(s) Supporting Document(s) ABO and Rh group [Type] in Blood [facility] Blood group antibody screen [Presence] in Serum or Plasma [facility] Blood bank comment [facility] ID Date Data Source [id number] 12/18/2019 09:29:35 PM EDT [facility] Name Value Range Interpretation Code Description Data Karoline rce(s) Supporting Document(s) Progress Note [facility] UYQJIy8vRzQKLjNe84/UAWwoSERpk9RtHJzmABi5YCqyVLOxE6DhUTN9bZ5gZWX6MTbDEwJdPfSiMMQc lbm [file] PgZEtbPIz5PTB2ErikGBakPxYgZNU6WvBoNH2LIm0UUzR0XUX9rIVrOb1KRkRgLHHXYjTyUC8KISl= ID Date Data Source [id number] 12/14/2019 06:00:18 PM EDT [facility] Name Value Range Interpretation Code Description Data Karoline rce(s) Supporting Document(s) Progress Note [facility] FNKDMo3fHwLLMdCc20/NGIyeMCUqj9MdZQcaPDc5RXfgEUExR2FxOHH4fX8iNZQ6ZEoFJiJeOcLiKHD1 lbm [file] AwMDAwODcyMiAwMDAwMCBuDQowMDAwMDEyMTIzIDAw WHKqFF5WYtGyDVWgEWMsCwnjOZBbXLHlmi5XKAKpBMAtFxLhXGQqSIRuFEHeOAndNCNpEKB0VMB8MJIn BBEyEX6JAnCfVSAzGsZvQkMdBSSlMXTdeh7ATOXvJJRiDQZ4PPHlEJPkPNCmMUmdONUfLAH6UFY2TLFo DHCzDK2FJwXkLAMeEhT3UXZwPKKbZWKvip5HUDBcTL YnRQC2RpLbEXBeXHYnDLpaYGInQFE3SWS8EXCaYUXsIL1HQwBuJTBdWbBsVTHbLZHwGIYnmw4XHHSlTO OuLeCyJMPaZAIsBLNxRFikODSpHWG1DgGrTYKyXUQcWY2GTjUfLKOuGcl4BAFrMHXjCURzke9VDGCoUK XfNXvqTADdXGRrLQFzTYzaPXYiGTP8POP8EOPhQPSr KR2SAqAxMOSeLglgZjWxXLZpZEJgna3VRXPzOVEmMNMpMBWxSNLcBRVnFPrtSUEvBJH4JgQjWATmPDMr AC6URiIwJCDjFOX3RNEhMOCySVAkzv1HVLRuZBS7FCz6XcSqLNZqKBFwTQidELVrUZWuJAjeATXcQKQv WU5WMzWiTUNeBOT0KPniUTCeHOCxih2XHGIbXOD4Qa x9BAAzGWYfGURuXEowHOJqJIZjCOWzOGTuGJGjHF5ZJkZeILWvQLIaGFMeEBOfJOSlrn8YxUSaiBidmx 3QWBcTXg7KrSgpRRE5FYfcDd3kkYGoAAJqYUMWCd3GphMuHAPjZGXQHMnhSBCuMZR2ORTpMEQrYFQ9WE o1YSC6Get4VCC3FbGvASqrVMFyTdA4TAo5IOUlEGN0 VZRbTaD5UIp1IJJoIylaEmG5CBT8B1M+UD8qGTy+Ap3Uf6IkohB0euCwQLd2FvUaLh1EBKZRC5LPBk== ID Date Data Source [id number] 12/04/2019 12:25:23 PM EDT [facility] Name Value Range Interpretation Code Description Data Karoline rce(s) Supporting Document(s) Progress Note [facility] CWJPQw8tYjEUUlJn60/KHImrBIOxu1VzVWrhJZt1BZipBEFxN6OzKWC9hR2eXQD9KVyBHnQhHyAnSYE2 lbm [file] AgICAgICAgICAgICAgICAgICAgICAgICAgICAgICAgICAgICAgICAgICAgICAgICAgICAgICAgICAgIC AgICAgICAgICAgICAgDQogICAgICAgICAgICAgICAg ICAgICAgICAgICAgICAgICAgICAgICAgICAgICAgICAgICAgICAgICAgICAgICAgICAgICAgICAgICAg ICAgICAgICAgICAgICAgICAgICAgICAgDQogICAgICAgICAgICAgICAgICAgICAgICAgICAgICAgICAg ICAgICAgICAgICAgICAgICAgICAgICAgICAgICAgIC AgICAgICAgICAgICAgICAgICAgICAgICAgICAgICAgICAgDQogICAgICAgICAgICAgICAgICAgICAgIC AgICAgICAgICAgICAgICAgICAgICAgICAgICAgICAgICAgICAgICAgICAgICAgICAgICAgICAgICAgIC AgICAgICAgICAgICAgICAgDQogICAgICAgICAgICAg ICAgICAgICAgICAgICAgICAgICAgICAgICAgICAgICAgICAgICAgICAgICAgICAgICAgICAgICAgICAg ICAgICAgICAgICAgICAgICAgICAgICAgICAgDQogICAgICAgICAgICAgICAgICAgICAgICAgICAgICAg ICAgICAgICAgICAgICAgICAgICAgICAgICAgICAgIC AgICAgICAgICAgICAgICAgICAgICAgICAgICAgICAgICAgICAgDQogICAgICAgICAgICAgICAgICAgIC AgICAgICAgICAgICAgICAgICAgICAgICAgICAgICAgICAgICAgICAgICAgICAgICAgICAgICAgICAgIC AgICAgICAgICAgICAgICAgICAgDQogICAgICAgICAg ICAgICAgICAgICAgICAgICAgICAgICAgICAgICAgICAgICAgICAgICAgICAgICAgICAgICAgICAgICAg ICAgICAgICAgICAgICAgICAgICAgICAgICAgICAgDQogICAgICAgICAgICAgICAgICAgICAgICAgICAg ICAgICAgICAgICAgICAgICAgICAgICAgICAgICAgIC AgICAgICAgICAgICAgICAgICAgICAgICAgICAgICAgICAgICAgICAgDQogICAgICAgICAgICAgICAgIC AgICAgICAgICAgICAgICAgICAgICAgICAgICAgICAgICAgICAgICAgICAgICAgICAgICAgICAgICAgIC RcNQEyJDAdVXBxDOYvEMZlDVPyNYOsGFm5N4jiQXUp GBQtTO6fDGv4Ze8+BVrIBsOdTXE8aiBdfQ8ZQA4zj2GhQNrlSRYrj0WyLAj5GK9ILROxNYedYW9QNCfn jt0INBNcQDFcmWCNp1ehTkNxAAC5FOAdUcekNU9FTDRkB2ckiiHnJEAqETPJAIstIMFFYFoiSMZVNH2D AaOqT3VqwC55RSRSPw1+DQplbmRvYmoNCjIzIDAgb2 DfZQo9IM9WOLVaEzkep2PzRwOoQISESEhsEA0VOQR2HYV1XGEkRn8NYGJyJ421gaKjKK0KCg4XYkCdSN 1lgu9CWvVzRFGnBopMNhm4SSfzSG8VbTTwLTrZsn4tnmXzdoKJf5WazjWftKHLols6zIRjrCUGUPMtbD 6cNMuiYN1cQWRtKB5pDI1iIGYkFCD6VwYbHKLIVH2X ZREjHFVkbRRhDLAaEIEZRZ4OLFerTNS7NJXbcmUxbEAfJOdlJH4MARRhekAdCwUxYXFONQd+Gw8HFM6g d7SyUIqdCCCaWL3ylu8LHXbVJmItU0X0rUChR1B7GPtyXq6KMAWpZCVxPwTsHTNPAJxcEV5FQU3bjlH1 DX9ToZEoTFZoYELjmHRiCFk7Y24ldIOnXXtvBI9YZL A+Greta+Rz0DXRJiGUDiQFApRgLvHJBYJmOnZ1OrE6TXn1NhV2NwPI00xHqnxaYlIHwsWH1XZA4fSRTbGX VKAS7MdWFznD7rggXnZgJwFHAFIzKjG20fqXUtPURiEKKxNNPsXs0HZSVcH8GhiyDiyJgqhmKiIJNyUN YSQD5CSWxggsIlqYSslYxzKS09nLyzHI6LAc1RUpRy JA0ojc3FoDSuEt2UQXGpMz3ZITYqWOEsTPXaLNZ6ZRJxNbVqOFcpPXJvTWLhHOS6XRQsVIJhIX7LVaCt BJXeHiTyRjOvEDKyBHDkqy2CGVYqPWKrXxJ3NiFmJOEiXTGfIYgtXUTqGGPlZNP9NQSaFTXvIS5NMhIp XIXsUHAlMxPlRREtQTTule3QEJDkCGZkYPN9HeLtQH ItNMSrSFxpFBZpYGR1TYGjGYIvJWFoHT8QEyRjLANuEUgnUNAhFFRwYPCjmx8SBNAmPDVySVT5LRYrWF MpMWOtCSrsHLQsQVV4ZiJvTXXhZEQrMD5GZfWuQXPvTAOyUcXhNOOcQMGlje1GHSTlQMLbZRR5WLZaDO YgVXTnIUitLIItUOLsTvJjKGDxPSIcWM2QHdFwITJd QNT3XCHqHTUoEAXflz6NAHTfCPHtXCzmSSMyRSBpQOWwUZaxJJDiIRXkJBwqJFYxRPWmZS0MTbLnXCHg YoL6LjQcSUEwVLMewq6RZWIeMLQjTkz4EnSmENHeJBJvCRiqMGReQKYlERU9VGJiXUFvBI7PEoRhVBFs BaZpFTYfDRUmTDTfju4FXSPsIWAuQJK3GcUkETRbOC QnSEibYBCsKXU5KvDqMYBeJYOgRL6HLdObOSWvRyAuOELwLKFpYWRjlr4AENJoPGHvTxH9YTQpDAVqCE HkWVsdMPEkPXZ3ZOP1GQPrWTFqFP4GNdJhQSzmSZHENxj8NYgsY9p7BTEhQh5YW0Lbn0NlIuQeELTXET vtXM5vsqPxNEUzJl3TK1rOHhfwBGrzN4RgTnVxD7Fw M8X0LNTlMrRjUcR7FBfaDtP3BC2vHZS6JVJ3IPCaDbEjKRMuAlt2PvT8NvTjSVppHNW3Wua9FuFjTE9Q Sn9UGwJ0LBK5iYEbFs2ZKhB6MgTWYmUaGK0ZYTe= ID Date Data Source [id number] 12/03/2019 01:58:06 PM EDT [facility] Name Value Range Interpretation Code Description Data Karoline e(s) Supporting Document(s) Leukocytes [#/volume] in Blood by Automated count 1.8 10*3/uL 4-10 LL [facility] Called to and read back by Citlaly Jeff in [facility] at 1323 by 1689 Erythrocytes [#/volume] in Blood by Automated count 3.27 10*6/uL 4.1- 5.3 L [facility] Hemoglobin [Mass/volume] in Blood 10.7 g/dL 11.5-15.5 L [facility] Hematocrit [Volume Fraction] of Blood by Automated count 30.4 % 3 6-45 L [facility] Erythrocyte mean corpuscular volume [Entitic volume] by Auto mated count 92.7 fL 80-96 [facility] Erythrocyte mean corpuscular hemoglobin [Entitic mass] by Automated count 32.5 pg 27-33 [facility] Erythrocyte mean corpuscular hemoglobin concentration [Mass/volume] by Automated count 35.1 g/dL 32.0-36.0 [facility] E[facility]throcyte distribution width [Ratio] by Automated count 16.7 % 11.5-14.5 H [facility] Platelets [#/volume] in Blood by Automated count 160 10*3/uL 150-400 [facility] Differential cell count method - Blood [facility] Neutrophils/100 leukocytes in Blood by Automated count 46 % [facility] Lymphocytes/100 leukocytes in Blood by Automated count 31 % [facility] Monocytes/100 leukocytes in Blood by Automated count 9 % [facility] Basophils/100 leukocytes in Blood by Automated count 1 % [facility] Neutrophils [#/volume] in Blood by Automated count 0.83 10*3/uL 1.8-7 .0 L [facility] Lymphocytes [#/volume] in Blood by Automated count 0.56 10*3/uL 1.2-4 .0 L [facility] Monocytes [#/volume] in Blood by Automated count 0.16 10*3/uL 0-0.8 [facility] Basophils [#/volume] in Blood by Automated count 0.02 10*3/uL 0-0.2 [facility] Nucleated erythrocytes/100 leukocytes [Ratio] in Blood by Automated count 1 /100{WBCs} 0-0 H [facility] Band form neutrophils/100 leukocytes in Blood by Manual count 2 % [facility] Myelocytes/100 leukocytes in Blood by Manual count 2 % [facility] Metamyelocytes/100 leukocytes in Blood by Manual count 9 % [facility] Band form neutrophils [#/volume] in Blood by Manual count 0.04 10*3 /uL 0-0.6 [facility] Myelocytes [#/volume] in Blood by Manual count 0.04 10*3/uL 0-0 H [facility] Metamyelocytes [#/volume] in Blood by Manual count 0.16 10*3/uL 0-0 H [facility] Anisocytosis [Presence] in Blood by Light microscopy [facility] Polychromasia [Presence] in Blood by Light microscopy [facility] Toxic granules [Presence] in Blood by Light microscopy [facility] ID Date Data Source [id number] 12/03/2019 01:59:16 PM EDT [facility] Name Value Range Interpretation Code Description Data Karoline rce(s) Supporting Document(s) Albumin [Mass/volume] in Serum or Plasma by Bromocresol green (BCG) dye binding method 3.9 g/dL 3.5-5.2 [facility] Bilirubin.total [Mass/volume] in Serum or Plasma 0.6 mg/dL <1.2 [facility] Calcium [Mass/volume] in Serum or Plasma 9.6 mg/dL 8.6-10.0 [facility] Chloride [Moles/volume] in Serum or Plasma 100 mmol/L 98-107 [facility] Creatinine [Mass/volume] in Serum or Plasma 1.01 mg/dL 0.50-0.90 H [facility] Glucose [Mass/volume] in Serum or Plasma 136 mg/dL 70-140 [facility] Alkaline phosphatase [Enzymatic activity/volume] in Serum or Plasma 68 U/L 35-104 [facility] Potassium [Moles/volume] in Serum or Plasma 3.1 mmol/L 3.4-5.1 L [facility] Protein [Mass/volume] in Serum or Plasma 6.0 g/dL 6.4-8.3 L [facility] Sodium [Moles/volume] in Serum or Plasma 134 mmol/L 136-145 L [facility] Aspartate aminotransferase [Enzymatic activity/volume] in Serum or Plasma 14 U/L <32 [facility] Urea nitrogen [Mass/volume] in Serum or Plasma 19 mg/dL 6-20 [facility] Osmolality of Serum or Plasma by calculation 282 mosm/kg 275-300 [facility] Creatinine/Urea nitrogen [Mass Ratio] in Serum or Plasma 19 [facility] Bicarbonate [Moles/volume] in Serum 25 mmol/L 22-29 [facility] Alanine aminotransferase [Enzymatic activity/volume] in Seru m or Plasma 35 U/L <33 H [facility] Anion gap 3 in Serum or Plasma 9 mmol/L 8-15 [facility] Glomerular filtration rate/1.73 sq M pre dicted among non-blacks [Volume Rate/Area] in Serum or Plasma by Creatinine-based formula (MDRD) 63 mL/min/1.73m2 >60 [facility] Glomerular filtration rate/1.73 sq M pre dicted among blacks [Volume Rate/Area] in Serum or Plasma by Creatinine-based formula (MDRD) 73 mL/min/1.73m2 >60 [facility] ID Date Data Source [id number] 11/27/2019 04:09:42 PM T [facility] Name Value Range Interpretation Code Description Data Karoline rce(s) Supporting Document(s) Platelets [#/volume] in Blood by Automated count 42 10*3/uL 150-400 L [facility] ID Date Data Source [id number] 11/27/2019 01:52:47 PM EDT [facility] Name Value Range Interpretation Code Description Data Karoline rce(s) Supporting Document(s) Albumin [Mass/volume] in Serum or Plasma by Bromocresol green (BCG) dye binding method 3.8 g/dL 3.5-5.2 [facility] Bilirubin.total [Mass/volume] in Serum or Plasma 0.8 mg/dL <1.2 [facility] Calcium [Mass/volume] in Serum or Plasma 9.5 mg/dL 8.6-10.0 [facility] Chloride [Moles/volume] in Serum or Plasma 103 mmol/L 98-107 [facility] Creatinine [Mass/volume] in Serum or Plasma 0.63 mg/dL 0.50-0.90 [facility] Glucose [Mass/volume] in Serum or Plasma 157 mg/dL 70-140 H [facility] Alkaline phosphatase [Enzymatic activity/volume] in Serum or Plasma 65 U/L 35-104 [facility] Potassium [Moles/volume] in Serum or Plasma 3.6 mmol/L 3.4-5.1 [facility] Hemolyzed Protein [Mass/volume] in Serum or Plasma 6.0 g/dL 6.4-8.3 L [facility] Sodium [Moles/volume] in Serum or Plasma 139 mmol/L 136-145 [facility] Aspartate aminotransferase [Enzymatic activity/volume] in Serum or Plasma 25 U/L <32 [facility] Urea nitrogen [Mass/volume] in Serum or Plasma 16 mg/dL 6-20 [facility] Osmolality of Serum or Plasma by calculation 292 mosm/kg 275-300 [facility] Creatinine/Urea nitrogen [Mass Ratio] in Serum or Plasma 26 [facility] Bicarbonate [Moles/volume] in Serum 23 mmol/L 22-29 [facility] Alanine aminotransferase [Enzymatic activity/volume] in Seru m or Plasma 40 U/L <33 H [facility] Anion gap 3 in Serum or Plasma 13 mmol/L 8-15 [facility] Glomerular filtration rate/1.73 sq M pre dicted among non-blacks [Volume Rate/Area] in Serum or Plasma by Creatinine-based formula (MDRD) >6 0 [facility] Glomerular filtration rate/1.73 sq M pre dicted among blacks [Volume Rate/Area] in Serum or Plasma by Creatinine-based formula (MDRD) >60 [facility] ID Date Data Source [id number] 11/27/2019 01:44:45 PM [facility] Name Value Range Interpretation Code Description Data Karoline rce(s) Supporting Document(s) ABO and Rh group [Type] in Blood [facility] Blood group antibody screen [Presence] in Serum or Plasma [facility] Blood bank comment [facility] ID Date Data Source [id number] 11/27/2019 01:40:16 PM [facility] Name Value Range Interpretation Code Description Data Karoline rce(s) Supporting Document(s) Leukocytes [#/volume] in Blood by Automated count 2.6 10*3/uL 4-10 L [facility] Erythrocytes [#/volume] in Blood by Automated count 3.50 10*6/uL 4.1- 5.3 [facility] Hemoglobin [Mass/volume] in Blood 11.4 g/dL 11.5-15.5 [facility] Hematocrit [Volume Fraction] of Blood by Automated count 33.5 % 3 6-45 L [facility] Erythrocyte mean corpuscular volume [Entitic volume] by Auto mated count 95.6 fL 80-96 [facility] Erythrocyte mean corpuscular hemoglobin [Entitic mass] by Automated count 32.6 pg 27-33 [facility] Erythrocyte mean corpuscular hemoglobin concentration [Mass/volume] by Automated count 34.1 g/dL [facility].0-[facility] width [Ratio] by Automated count 16.4 % 11.5-14.5 H [facility] Platelets [#/volume] in Blood by Automated count 22 10*3/uL 150-400 [facility] ConfirmedCalled to and read back by Camilo Mohamud RN at [phone] at [phone] by [phone] Differential cell count method - Blood [facility] Neutrophils/100 leukocytes in Blood by Automated count 83 % [facility] Lymphocytes/100 leukocytes in Blood by Automated count 13 % [facility] Monocytes/100 leukocytes in Blood by Automated count 4 % [facility] Eosinophils/100 leukocytes in Blood by Automated count 0 % [facility] Basophils/100 leukocytes in Blood by Automated count 0 % [facility] Neutrophils [#/volume] in Blood by Automated count 2.13 10*3/uL 1.8-7 .0 [facility] Lymphocytes [#/volume] in Blood by Automated count 0.34 10*3/uL 1.2-4 .0 L [facility] Monocytes [#/volume] in Blood by Automated count 0.09 10*3/uL 0-0.8 [facility] Eosinophils [#/volume] in Blood by Automated count 0.00 10*3/uL 0-0.5 [facility] Basophils [#/volume] in Blood by Automated count 0.01 10*3/uL 0-0.2 [facility] Nucleated erythrocytes/100 leukocytes [Ratio] in Blood by Automated count 0 /100{WBCs} 0-0 [facility] ID Date Data Source [id number] 11/29/2019 07:59:26 AM T [facility] [place] [place] [address] Name Value Range Interpretation Code Description Data Karoline rce(s) Supporting Document(s) ID Date Data Source [id number] 11/15/2019 12:40:21 PM EDT [facility] Name Value Range Interpretation Code Description Data Karoline rce(s) Supporting Document(s) Progress Note [facility] TJYECh1uJrEAUrHh57/KWOlmUXTzd9WaSZyyBRg6TUapGEHhC5GoWVA4wY1hIAY6KPkDLqGlDdAwBRSi lbm [file] UIgpQ2H2UTYsHh2mTPRTMb5+JZevyEJicWbaKISCBkGzZAK7VFdfJIPAIl4W ID Date Data Source [id number] 11/07/2019 02:56:37 PM EDT [facility] Name Value Range Interpretation Code Description Data Karoline rce(s) Supporting Document(s) Progress Note [facility] DPESIe3nBuEWDlCo59/RNFahIJWcf2UvHZpqDTy1HVimBQQjC3GhJCT2mO7rWFI8BToUSmMcMpMqKDIj lbm [file] ICAgICAgICAgICAgICAgICAgICAgICAgICAgICAgIC FkZKZxISJsYCKoFCZhCIPeURIvOH6WCGTsUTUwGLOyBFWmNNCkMUVzGZBnYXDrHOSjBANqOHIrMAFeHC AgICAgICAgICAgICAgICAgICAgICAgICAgICAgICAgICAgICAgICAgICAgICAgICAgICAgICAgICAgIC AhTZ1CWJBbDCOzMEKgRTIyGUDjRLHpPBSbRZVfMLPp ICAgICAgICAgICAgICAgICAgICAgICAgICAgICAgICAgICAgICAgICAgICAgICAgICAgICAgICAgICAg CVZmNPHyTNZzJXQjKL8JRKDjTZTpQYWnBAZqUJYeDWPiDWSgBISnNKClTZMqNWRaQRKhJGRcVHTvCQGb ICAgICAgICAgICAgICAgICAgICAgICAgICAgICAgIC VpZNMbCKGgJKGqAOHvENSjMHUaQLTgMO1ROCZxWBPaCYIjIYLuFJJxQPMoHXDoSKIeRQIgIEQuNHArJU AgICAgICAgICAgICAgICAgICAgICAgICAgICAgICAgICAgICAgICAgICAgICAgICAgICAgICAgICAgIC ReIIJfFY6EGWKkAULkTUBsRCJmOCOpHAXlQRMsFIQr ICAgICAgICAgICAgICAgICAgICAgICAgICAgICAgICAgICAgICAgICAgICAgICAgICAgICAgICAgICAg KAJuWYFqVGOlUMEzRQJuWL8DPIKeEHDdBWZnOPRkJKQsPHFySUHcOQWqUBXzOAViULKgLVXvSLPhHFQn ICAgICAgICAgICAgICAgICAgICAgICAgICAgICAgIC DxQMJkUAIeYCLgRIBbAHBbPGDpRSJrUQWsGO2MFTKtUYRrDIRnAYSoDBAuHAQiTYIbZXQeDOWyXIFxTB AgICAgICAgICAgICAgICAgICAgICAgICAgICAgICAgICAgICAgICAgICAgICAgICAgICAgICAgICAgIC NrVLBkEYZiWS0XRBEeJFEaPWThYXDcLCZiRMLlDSRg ICAgICAgICAgICAgICAgICAgICAgICAgICAgICAgICAgICAgICAgICAgICAgICAgICAgICAgICAgICAg SJAqPNZzQALnKXUtOCEpFKCeAV5YDGGbVXLzENZuEPWuGQBbFSUjRLWyQGYjQIAfTSIzDIZqBTAkVJWe ICAgICAgICAgICAgICAgICAgICAgICAgICAgICAgIC HqPDHbFNMlYJJeBRFoABYgAPHjVAEmRCLsDYAfQG5HVM77aMTqu7M1VNKsNB1sxzt/Ex3IUKnvioPawZ CbTN0AHhFzFV5xxn9HNmMyPL8uon3GDGdKHtGoC6S8gNKrDALxJSAJSsOqC60hBVfpIc99WAmlQXWbNb BpVRf2Vm7DTcGwB6evIKAjGtI3AFWwSuH6APJaIsWe CLLrAGNrJB3SRJBpL780phGpCz9XCd0SQxTyZI6qra4GFnLiPNEoYheVUlv2TPdrCO8CfYUpxKRuWMLs UGERZtQjI6vgb8MkXlYdUQIJRBzzND4Aa6WovSWzZMf+Yq6GST0vx2VnICkkCDJxMM2miy6UGNsAErBb V4XuyInlXCRum7zbNHBpJI4rxUDoNZH1XTYuzKC2FN 54RLGuB0ult91eHWDFYcFbbZA8WfUsCgNiPHUwFgoyXPPLPRiJLqFtN0Xcg0KuYtQ5QGIwTsOpIHzgTZ JaLtW5HM91yDteAF9LHLKsLGEjRZ41CCPxTUYnOs7FKh7SEeRaRT0hks8ZZlNePU7dob8BXPiEUpNdD4 N9nZQvA3Cjae31UI3CzUU0eUTjPZ7OcC7gHH7Yr2Cu XLLmRuGaUUCrUOEdGNCzFNNaRoUfOF5KKTWxBjAuqLRpIWOfVQkoJOQaDgD6WjYpLV0BHMJlSTY9RI6I HS3OQdojS2KTKLmojIwtAsMWYNW/OADIDRGRMAgzJQGeR59XZ6UTRDmLAjcjTZgQSxydWd5dRXu+Pg0K MJ8gx7NkNSvmDzHlJQ7nlw5VRZdGYeMlM1X6iNMuV8 S2GFovRz2WFCUjCBXnTcgrZBZHTYgaQI0CWN6fsjY0YR9DiBPeKWQyGLJkaTQxJIe6O84gmUUnYBxeEF 0KICA+Greta+Ur6YKMOxYVCfFFMzYbQwNDFDBoCnC7VjI7NGh2HqF1WsDK44yFczrnSnTMzuNP3TCI4vQQ KjKDDRCB2OdQTmsX8sjfIzNZEoPQKZCvTlF63kjIQu ENBnIVK7YCKvVi0SDGZfE4YneqAzlChcbjIhSBJzORRTHU1LRNqalxZhqLNucBorUC86sJsxUB3BDq2S SfVhDA8jvz0FrKIzRk9XNDSsIz4HZGGgDCVuFSGhEBX7WBOnPfAtBJpiHXCkGDLeFFN0MKDwZFHhKV3K NsVjQPIgHdZ5XCWsFHNiRKJxus5HFTAwIWLjYYhwDd TxRJMyGPDqHUseSVVoRHNxDIV2SMLzORGvFZ7JInOmDMIlAPUfXYNwOIHuCFCapl5VRMUpACYqJES1XI GqDUSaVIBhRFkqNHTwUKKbTRu0IBSfSXTcHG8FWdVrZVJaUEV1AdGtEQRrCKYfjh1OGATwZJPeHov8Bi HrXDQdDPFsVGqfWBQpTWN1KMq3NYRgEHWtII6ZXsBy EWAxZDijKbzaBVYdFLPaox5CJPQuQUGxQOHoQUIzPBDwNHAiXPxdRBOoZNLtSEX2ZSCpLIBkHP5XBfWe WGQkDGO0UCmmNNYoVTIwlo2UFRBsPGLuXXK5CHLpNGOcWAWjZYqtAQPzPIYwLrwyLGGwGDZfKR2CUtUl FAZeWAI0SyihBHGdWJXvex5QMCMxUKLxKbX8XSAhJO CoASOsXTmmWCUzSFMoDxZqZBZoUFTdXF9VGlWcNQFqYnL9UlTzKERnCDCyqy9UKNWqZFXuDHN1HjHbAJ WcLHZvYFszOOEfBHW2EfP9OUSeKYPcSO4MVcSzCWDkCxTvAxWiEKOxBKEejw5QYODgEOQuSEP6NgYwHY JwQTNpNWknPTChMAG1GgH9PAOaWXCvXW1LXeKnJTOn ZlD4HobjIZZfJAQgnh8XKHOeDUHwSeo9FgQmXIXiNLMzHCjjXDQvLIE8JVL5JZTbICHpYH3QExMbFTIw LutmFmveGXHvITBluu6VJCPhKXByJSejNVFjLHNjAOAlSPvhHNTqOZI9OWm6ISHcXJDlWK1PEzQnIJEr RokyZYVsUWXaGEZzsc2IxDUqmJhgrl7LLJaZUc3PkH owISYtXDosSl0tjWCnZuJsTRDBIx7AwoQlWWVzYFQVKZbdKMLhKECaIQZ6YhroROg5JHjwDrJxFHFhST GbJXi5Z2KuCqtaLwN6F9OqJbRtHJE1Aqp7T9S2PtUfKoGbQnP4LCuoDPRjFPY+PI4mJJs+Wl8Ys1Asdt A9zrEnPYuhTGL4VI0CQACLL5GQPv== ID Date Data Source [id number] 11/03/2019 10:19:16 PM EDT [facility] Name Value Range Interpretation Code Description Data Karoline rce(s) Supporting Document(s) Progress Note [facility] WQTJUu2qQaPGLuDp08/GKGgiUUCgr6NtBLocQLi9PMkyXISgU6IfCPL5kG0vCQO8BSkMKvWrIoQfHBT8 lbm [file] XCqiBOJVZh0E ID Date Data Source [id number] 11/03/2019 10:19:11 PM EDT [facility] Name Value Range Interpretation Code Description Data Karoline rce(s) Supporting Document(s) Progress Note [facility] BQFUIh8pNnMRFcKh84/IOXipVOBrj1KpUFyxCKv7YEvgEJTgL9HxPMP8nT4rPHF5USeGRaPoWmTbPRB8 lbm [file] CFvOvXnUeQw15ZTVS4tVgyOUaRYaNqoq+FnQEC/Congressional Representative [file] TnP/YS0T+Agustín/Z+Q2bQcoJ/A7J1Iwrz4U/YhqO3I7C [file] ICAgICAgICAgICAgICAgICAgICAgICAgICAgICAgIC AgICAgICAgICAgICAgICAgDQogICAgICAgICAgICAgICAgICAgICAgICAgICAgICAgICAgICAgICAgIC AgICAgICAgICAgICAgICAgICAgICAgICAgICAgICAgICAgICAgICAgICAgICAgICAgICAgICAgICAgDQ ogICAgICAgICAgICAgICAgICAgICAgICAgICAgICAg ICAgICAgICAgICAgICAgICAgICAgICAgICAgICAgICAgICAgICAgICAgICAgICAgICAgICAgICAgICAg ICAgICAgICAgDQogICAgICAgICAgICAgICAgICAgICAgICAgICAgICAgICAgICAgICAgICAgICAgICAg ICAgICAgICAgICAgICAgICAgICAgICAgICAgICAgIC AgICAgICAgICAgICAgICAgICAgDQogICAgICAgICAgICAgICAgICAgICAgICAgICAgICAgICAgICAgIC AgICAgICAgICAgICAgICAgICAgICAgICAgICAgICAgICAgICAgICAgICAgICAgICAgICAgICAgICAgIC AgDQogICAgICAgICAgICAgICAgICAgICAgICAgICAg ICAgICAgICAgICAgICAgICAgICAgICAgICAgICAgICAgICAgICAgICAgICAgICAgICAgICAgICAgICAg ICAgICAgICAgICAgDQogICAgICAgICAgICAgICAgICAgICAgICAgICAgICAgICAgICAgICAgICAgICAg ICAgICAgICAgICAgICAgICAgICAgICAgICAgICAgIC AgICAgICAgICAgICAgICAgICAgICAgDQogICAgICAgICAgICAgICAgICAgICAgICAgICAgICAgICAgIC AgICAgICAgICAgICAgICAgICAgICAgICAgICAgICAgICAgICAgICAgICAgICAgICAgICAgICAgICAgIC AgICAgDQogICAgICAgICAgICAgICAgICAgICAgICAg ICAgICAgICAgICAgICAgICAgICAgICAgICAgICAgICAgICAgICAgICAgICAgICAgICAgICAgICAgICAg ICAgICAgICAgICAgICAgDQogICAgICAgICAgICAgICAgICAgICAgICAgICAgICAgICAgICAgICAgICAg ICAgICAgICAgICAgICAgICAgICAgICAgICAgICAgIC AbWOGmTDMmYXWhTXVwAMOhELMnCDYmCJSxDEo7N6lrYZRyLBRaJZ4pMDc7Pl0+IVcOAoRdHGH9ruIzgS 0WQK7pv9KkFAvmAEYcx6GjYMa0QD1RWJBjMAyyUJ3DEYofkm2YIBHmUOKrbNYVv1lgIyHkBIW1BGAyZe hkPW8WCFNvN7zyvoRgEBXhXOXIFHktHTKPYDPyHEGh JaEoSaZsZNUeSMErBBIXXH4TTxArY2RfcV17OKXBJx8+LPvussPcZvtQBlIhYDNcy4YrXQy6KY2RCQAm Bkwde0MlYBGuESGBJKvqQK3CVDI7QODzHJDaXo0RPFIuF897gbTrKT2KPg4SRnOaEB9rtr2NHFCoXQJl JdpZRsk7EAesNM7LnITwSDxZok5aavAdlzLOl3Tzit GhuLCBAE5qrYUsumONRRbzkLAhguf3Q9gfZO2DENE5ZGgzEXFrJqYjQYCaUOtnGMEYMFaCUiKqN9Lrw8 JnAqP2NODiFiAfLSfeUUGiSfE6ZT03mThrXZ6VBOKnWXNgUN96LXZkKIXuPx0DFz3NVeUiJR1bub6CBz AiCT7bpp4QNYeAVsIyH4S9oGXhL1Lsic38KW3StWB4 bYOlWP4HkC7bJE0Pf2VgWDHaXkMeRIPyRXEgIUIeGJGmAuXxVV5ZNAQeEfCbgCUrZDDdIrtxJHRoLtYm MTqhQX5SXBIeLDS2KZ2GVJ9AFszjH2NSIDlzuOgyYtDTSQL/PDUDAHYIJAoySZMtK27RT7FLBIjJIaat ZXlHLzuhNg9mOVr+Af8VJP5nz8IbMJi8IoAeJW7iub 1TKDqEJsGbA6M4tOQxD3B6LHmvMj0BVLXrJJHiLitjNTCKUEjaEO2JBF9adsU0XS5CbSJoLMHfWNEvdK AdZPs9H86jbQMdXYpxRH0SPSW+Greta+Cq7CQQGoAXSaZGDrYuOlDDODQbDdC9IiE1KKy9OsC2CnYL09wU weczNwRUbrJT9TKJ3lPRKlHDOCRO4LiCOmnN2suwU3 VWTgQGSUChArC94nuDFlXVXmCEI8CPWrFk6SJWDcH6JovtUvjVsvujZxHPGeXSOLGM7HCJbgrvZbwDXg pXkbYQ44fLvgAO8RAu9GGkUsWV2fvd5TrATyBa2LOPE5Ak3YRGVeWOBiVUWxHIF7FKBuEvClBQmcELBq UNGfBAY3TLShMHUhPZ1JEiIqZZFhFFk6NtRnMYFnRI Mycw5QEOWpGXP3AZOxTcEgCFMiNTNdCBjiZMAgGTGvYKW4WAVkVHFkWR8KDfWwWVXoBUEyXTOuOPBkAR Nzaj1FWMNnYNW1NOJ0RQRkQDGyAQJjFOaqJFCxLGA1XsQuRMOzPUFxAY6PQkFcGCGnEDbpDlmqYXUcLE Qeel3QPBNrJJKxYSC5RECcDPRoLYWrDLvuBTDoBESi AHVzSEOtFMJmQL6KIvCkZZSxWLO1EXXrIOAkOKYras9BLMSkCRHcJCzvGGOdVZUbDGAnJNhfITQpSDU3 VMQ3RTDuVMDuEM4ZOfKbAAYqQOsrUfCwISGvYQAvrw3RFQIuVGRsIEJuWwNtQAYtUVKuZBzqXVNrYZO9 QNs6GQGuQCQyXN4VYiImSKLoACr0WMGnOOOmZIOwok 3JQKUxDGSdCNd0LxBjHWArQLHoEEcyXRSlJZUcXJG6XUPoJJPpYJ5LArUpDRDzEtXlIvcrPFKgORFbwx 9APJRrJAAmIOJrICSqQEHiBURrNGshSRUmUYZbTEdrTKDpDEQeHO4OVgNzASMtBGNfSiQeXJPmHVMkbk 7WOYMcELJ4MDX0EAUkNXCrZJBzCKlpVPHxDFJyPJT0 VGMyQHZzKL9NYzUkEKYqJZSbOiQoJBIxHSWvdi7HIYMaOGZ1GaGoLKUzPVWdSZTlLYsyWWOiIVJbEyx4 EMReMSNnPM4AGeXtGBBbCSQ4NhLgVYYiJPQezm9OCQGeRCJ8VCYfCqRuIAMaCFCpATdtVGNtXCZ7Hpf7 SNVeKRXaQX2MJhRdRQTlONA7UdCdOUBnVVSjcd9LQE UnNHU1XNypBWEyQMQpODJbOOqyBZViHZD4NUM4WGPkOVTtOV1QWzYoJDPnBASmUZBpOOSmGUSmkn1CQI LzECI7WaWiXVBgSGTzFUXgWUiqCRQmDHA4LfWoCJGcGIWqJF7AIeLqTSScPZf1LDBoPQXyYCJbmr3OBA SwHMH4Xou0TcXhORUaAUBdXDwwKHBpTGO1AXDlQMCx LOZvRM9EPdVqMNMqWVp6DBHeWWOeIHVgpf7GIWDvULW4XDxaDFBgDXFfPOAwYEd6noFvkMUaISi1GI6Z V7ToiyJxQBOIQe6Xh631PZJtQCMiDk2XU1ldRl3xAIDhGXGGEd7SNIf9ZHPjZfL1QBUtOOXjGOX8XId6 YTMwYmUzNzJmNGEzMDY+FFz1MJNyTRReWzG3JhRlOS HcAopaNlDrMAW7WqI2MHUgPx2kQQURYy8+SQdnzOJctBauEAHCMoSrKDz8OPvsGIABHc7J ID Date Data Source [id number] 10/30/2019 05:01:02 PM EDT [facility] Name Value Range Interpretation Code Description Data Karoline rce(s) Supporting Document(s) Progress Note [facility] WRAUPl4yAgGYTiUq03/GOVkmEVHqe2QcEWjwXWb5PUsuKQZpW5SfCJS3yR8bJJI9YNwPBgDqEeQjEVW8 lbm [file] YVwkgGJzsQebLRBEWrV6GpF2UNogARMUGk5E ID Date Data Source [id number] 10/25/2019 09:31:44 AM EDT [facility] Name Value Range Interpretation Code Description Data Karoline rce(s) Supporting Document(s) Progress Note [facility] LWGTTu7jImNENhCq81/GHExiJNWer9ZsCFzjMXb6KVjjLQHaZ9FjBOR8oI5xKIN3KVcETdBcSsOqOFSf lbm [file] ICAgICAgICAgICAgICAgICAgICAgICAgICAgICAgICAgICAgICAgICAgICAgICAgICANCiAgICAgICAg ICAgICAgICAgICAgICAgICAgICAgICAgICAgICAgIC AgICAgICAgICAgICAgICAgICAgICAgICAgICAgICAgICAgICAgICAgICAgICAgICAgICAgICAgICAgIC ANCiAgICAgICAgICAgICAgICAgICAgICAgICAgICAgICAgICAgICAgICAgICAgICAgICAgICAgICAgIC AgICAgICAgICAgICAgICAgICAgICAgICAgICAgICAg ICAgICAgICAgICANCiAgICAgICAgICAgICAgICAgICAgICAgICAgICAgICAgICAgICAgICAgICAgICAg ICAgICAgICAgICAgICAgICAgICAgICAgICAgICAgICAgICAgICAgICAgICAgICAgICAgICANCiAgICAg ICAgICAgICAgICAgICAgICAgICAgICAgICAgICAgIC AgICAgICAgICAgICAgICAgICAgICAgICAgICAgICAgICAgICAgICAgICAgICAgICAgICAgICAgICAgIC AgICANCiAgICAgICAgICAgICAgICAgICAgICAgICAgICAgICAgICAgICAgICAgICAgICAgICAgICAgIC AgICAgICAgICAgICAgICAgICAgICAgICAgICAgICAg ICAgICAgICAgICAgICANCiAgICAgICAgICAgICAgICAgICAgICAgICAgICAgICAgICAgICAgICAgICAg ICAgICAgICAgICAgICAgICAgICAgICAgICAgICAgICAgICAgICAgICAgICAgICAgICAgICAgICANCiAg ICAgICAgICAgICAgICAgICAgICAgICAgICAgICAgIC AgICAgICAgICAgICAgICAgICAgICAgICAgICAgICAgICAgICAgICAgICAgICAgICAgICAgICAgICAgIC AgICAgICANCiAgICAgICAgICAgICAgICAgICAgICAgICAgICAgICAgICAgICAgICAgICAgICAgICAgIC AgICAgICAgICAgICAgICAgICAgICAgICAgICAgICAg ICAgICAgICAgICAgICAgICANCiAgICAgICAgICAgICAgICAgICAgICAgICAgICAgICAgICAgICAgICAg ICAgICAgICAgICAgICAgICAgICAgICAgICAgICAgICAgICAgICAgICAgICAgICAgICAgICAgICAgICAN Cjw/cFTvB8kptOIhyeR6H2ifYr4IIp5OEZ3qd5PbJZ JvTVcgldAzGplKVdWjCASyPtqTXti5FMtoGJ3JcDAoU3YtQ6BxANcwRA4VHTVcFJMewUBcPAMrJWZvNm D0GZIwZJtkKO7TuGVwLZuhQBPrUARxZP9HTCQyB500wxLyMS6SIe7ZFvWbWS2kzi2IGObtAGQeAenFPj j6XCgnIA3FvHSojVElLPOsLHOSBvMvH0xfr4QwCtGd WZJWEVfeQU5Gy7LxdTEbQWp+Pf9QQG7dr1HwTFhhMQLnGE1iiu8PFWnRBhHoJ4YxxHjmENAws6eyFPVc IK7etQXtYJB3ATyxutBoQCAqGGLafCtpUHJbmGHoiWFgQGpVF3bsQDWsYE6oHT2nWXBtVSBsJfO1UVYQ DI5SGFMnOQXchYLyDCRdSQLDGB5OUUslCKB0WUVtyn OyuXXhJYcpTE6NRCNrepBvPBzuKSAGHKu+Aa6KTY2sa6KcWDjfPHRxUP6bqu8BTKvRPtIpL3D3eGMfQ9 A0EJutXi7YYKWgHNVnHVwcTRNZHRuhMN8NCU6bntQ9CS5PyICxOAVfEMMdgHSwLMc7P97pyLPuNDasSC 0KICA+Greta+He5YJMFmNQRwRRZpLbOnDGTDAyTzK3Rg U7MPi2AmI1VbYM99sWbdfePjPZonDY2EGS5yTSWwVYLLPY2GnCIrvK3objTdWIVrUVOWMzOnT72yvXWh TCPsHFH9SRVxAs2ALSRoW6KyxdIpvBaocsSpSPPkXOVQYR1RNCfdrmDkzOUdeQngOG36bHhqEQ8UFf6G CmTiFB9bba1IiZShUe8IVGVuWi8NCRJmAZCsCKNdTR W2ZRLpFnJrBNsgURAyTNZrQRM5WMMzMYOzFI8HKhNeHBUqDOdjMBEvPYUiKXUsit2RABYkAYQkKUc2DM HiHTSqOSOlWEjmSBMcICVcVLS3BZYaXHIqQI6QApJdEKHzSMZ0AqBiGWBfDBBrzv4ZCSZkMGBvBpV8ZU BeIJVbCJPlVJlpZTRvWPJ3BDA1TSKyHJWgPZ3ACcVv FBMzAIOzNfLvZTRhSUZfnh2YJUUaOYCqXQZkRFYsQXHcXKRlSZurWCAqHWM8XEAeAWFdDTMlHH2AOaPu KSVtGRY7QpXfUVMwIQOrus3LRNIiWMIkUWf8BlNpIQKkTOQvRWnnFVQeRLR4NbW3RVOeMBFrAH9KMeLn DSZsSMu6FtNoWRWeNPXxap9VEMZyQSFtAsklVuHpVO XjHSBoZBihINKyLQH8LXklNWXkQWLwPT3WCpNcSNIrXSvjBFukOZQjXEStgw7IVZAhTNKkNLUoMMInSC LaYJCqYYthPBZzWBL9RIC6TBKbUVGnBH5FPlWtCVTwXfFwCcfjSBOmNVMasf9VTBFpVUXwRXG1BbLmYS TcQCPvSEa4jjJdrAFpJKt6WZ7MI9SxryXcFsFBHk2N i423OTOqKIAbKz3MG1hcYq9aPMKcJMICYw9LIBk1REQpNhD3GERcUNRfZLRtXIR2JiNiULS7UJDfKZRl NDA+UInsWyJcRtvoMPWqYoTdHrMyKVd8VWNdATYlGSK1HCU1GI9kXENOZv5+DQpzdGFydHhyZWYNCjIw TVGcTJnwUVJXJj6I ID Date Data Source [id number] 10/22/2019 11:43:06 AM EDT [facility] Name Value Range Interpretation Code Description Data Karoline rce(s) Supporting Document(s) Progress Note [facility] UGOJUh0vCrRJXsBg30/NSPcuWEEgl8GgAOcqRNa2WDrvAVMnW6IsPZZ4rT2iSQR7DGfRMoEkXvTuHRO7 lbm QaIivAZuAfAYPkOqyLQpImLGsuYehwiJZfKD3IxKB2ZCEcM29qKCNiMMTuQ5JlJMAdFLd+Fp5MEPTccI BtIM8PXfjV4Ashs9p4DP6tuK9MSWAOTqmD0O2RImEl4qBnolTqVpklRvmJPwqZuuag5jyaW2xU7x+UOQ 3tind55pI6JYwaR8ahIO2/R4OoCa7XP0D/+WOcKnEx Et9/JxbbfDXftngkm+FI4mYqsa1Iy2826uLTD+zlchYETvsZ6lOXFNKUtLtvEJrPB98pn13tIeCgzLNK 2f5rYWOZjjNNWdshkKNtqZa5wkTvAVy99AjIF6W1doejEGBVJgPobSUDNKxceVfgXklInxyFA3cuumXV lPtlBJRlBzJoJ5oPMtAaIt0yf263vdrGhGpAwc79w/ 9ARwcfkhBb02tlE1IfFlcwtQ+cGz6VRhqfUv4YgeLqmKZl7EpMFvVX7Ugjb5ztwfEw7DDuCXC2z3JjCB Oo6xw3Fyx84RWHT/ZV4z/nBAqR8xx4qm+K/jD0hCE2KmxLrmTDyxCQ37lMR9MBQyVQ7Zm9XrjGbQYf/V Ye6cDqNvl/r+rzauqmZ9Vo6oB6d/3wFqDJMzqzQKa1 bx2Z/V5hlpcHWjW1/gNEySIyeOWp1y61FTu3Io3Z3bXFwkkdBOqSSeC/MCiyqcPsotFrVclInOZFMZyK /T2PC95M0Xq2nc+m93z/2aE4/E3KR0LljnyEr4x7qOZd81PFePYlwo5y8mceaE1AiwtbRf7UH8zLpfET 07f7EcoruIP2j1ghE/j74f765G4G42VM5Xah1fED+v [file] 0TXQDeLT0GSJCvTDXcVPVNXuXiESYuQrLcZSFgUICS Hw5XKuKgK6hXPiffH8YdVQjlOn8BAkKsS9S4nWsXiXY0GQH6HR7IBrHSNwEjPWk1J7I2lACbV0Z6iOzW qIR3LR2UTZ7RFFYfZR5+ItNmZ5MLWQoETUP0RE6NrVRaUX8TyPNTV4KkiVUiYh5xLQSgkMhtyWm+PiAv E3HQSJFMQAN7PS6LfWApGI9RqFFBQ0QepRKxNh3aWP dfXoDiOT2vKO5+TG7RKKNKZkSHLeIzCKkzPGdgFDBmAXi0Q8P7YSBeC7NWK4J4N5k9b2fhdq2+IA0KIC UsR6KZRAFVReIwNNupFCyhAXFfBMt4R1V1ZVCeN1YXV3qkK8b7GH9+PiANCiAgID4+DQo+Hq2WYT2lv1 SwTOowWATkXU2iyf5CDIchQASiK6LtILFlAYlsN1Ws wOfmWH8IDWbaNCpcDQ2HIRYbEQX7TL7+WCetpIPfVM4WXdq/aXNcO3uekSTaQUjmhh3h71r/JfIuXZ1e QzKXSF3cN0PdgQy2ceUHgp6WK0odYntcUz0+KIfhHHw2TajwuK4adDKilDm8zYO8qt5yOv8gKBejZUbg iF4onhZ4hW7tYQWzWwI5cuD4sVD2SA5hMi3RDPCbZP sfFCD0OrHQYGticR5sMrTwBq1xyJF7tUqbO2e3fh48Df2khvhpRJh6RX2iGo4tNj3bXPFqw0tyxOI2TG 5zIyc+IUxkASFtUT4rJKJ2TsQKTx9HHXS3P2h5sP4fxQJ0QE4OZbBqLUFsWZYcWLAbBUWzTXCoZDZhKR AgICAgICAgICAgICAgICAgICAgICAgICAgICAgICAg ICAgICAgICAgICAgICAgICAgICAgICAgICAgICAgICAgICAgICAgICAgICAgICANCiAgICAgICAgICAg ICAgICAgICAgICAgICAgICAgICAgICAgICAgICAgICAgICAgICAgICAgICAgICAgICAgICAgICAgICAg ICAgICAgICAgICAgICAgICAgICAgICAgICAgICANCi AgICAgICAgICAgICAgICAgICAgICAgICAgICAgICAgICAgICAgICAgICAgICAgICAgICAgICAgICAgIC AgICAgICAgICAgICAgICAgICAgICAgICAgICAgICAgICAgICAgICANCiAgICAgICAgICAgICAgICAgIC AgICAgICAgICAgICAgICAgICAgICAgICAgICAgICAg ICAgICAgICAgICAgICAgICAgICAgICAgICAgICAgICAgICAgICAgICAgICAgICAgICANCiAgICAgICAg ICAgICAgICAgICAgICAgICAgICAgICAgICAgICAgICAgICAgICAgICAgICAgICAgICAgICAgICAgICAg ICAgICAgICAgICAgICAgICAgICAgICAgICAgICAgIC ANCiAgICAgICAgICAgICAgICAgICAgICAgICAgICAgICAgICAgICAgICAgICAgICAgICAgICAgICAgIC AgICAgICAgICAgICAgICAgICAgICAgICAgICAgICAgICAgICAgICAgICANCiAgICAgICAgICAgICAgIC AgICAgICAgICAgICAgICAgICAgICAgICAgICAgICAg ICAgICAgICAgICAgICAgICAgICAgICAgICAgICAgICAgICAgICAgICAgICAgICAgICAgICANCiAgICAg ICAgICAgICAgICAgICAgICAgICAgICAgICAgICAgICAgICAgICAgICAgICAgICAgICAgICAgICAgICAg ICAgICAgICAgICAgICAgICAgICAgICAgICAgICAgIC AgICANCiAgICAgICAgICAgICAgICAgICAgICAgICAgICAgICAgICAgICAgICAgICAgICAgICAgICAgIC AgICAgICAgICAgICAgICAgICAgICAgICAgICAgICAgICAgICAgICAgICAgICANCiAgICAgICAgICAgIC AgICAgICAgICAgICAgICAgICAgICAgICAgICAgICAg ICAgICAgICAgICAgICAgICAgICAgICAgICAgICAgICAgICAgICAgICAgICAgICAgICAgICAgICANCjw/ yUVpC4thgXAlmwU9M3aiTy4RFi9ABK2ia3CdFNRxQWajghNvZkfLXiZfTTPmJwyAHlk4NVgiKN1BmPUl Q9NcB7DqJNyjGA0ZXKOcQVDioISpGYCjYVAuJzU9AB XsHZrpJB4LfCLkVJgqWCEzJMKqMM1LHHMlU035shSkDO0DIf7UUhAvDL3xyd3NFQfkBDWeFviMUna6GM ejZU4LcDFlnREzCPUuPZIJVgZfT3zcu2RbBnImQBIDKXtzFN2So9DwjUMhWMu+Hy2ZFT4vf1PxADiwUE LiTE2hah5GXHiZPtQgM2SfwVnvTPNdx7cyWEDzAP6s zYPoVNX6RIfchoUjKKNwLPEbgXkbTLWkeZLzjTNkXXlYD9ihQBJbHE7oNt7zDCMnAIJxXcDxOCBWMJ4H GCBcIYJixFShKGFwFYHKXI6CKWkrZRE0TPMoxnPonDSwXLmnXZ8OXJZyxrOrICdfSNLSYBs+Wd4AJD7y y1NrUZijBNGbKJ1den5BMYjKRmKlL0L4hOBhQ6S4XO myYo0GEIDgLLYkEKneLHCJMKqkWT9PQJ9tsuV9QN6FnNOoUEPuARAhgMZeHRz1C41cfYNwARsmGN6FRY A+Greta+Ky0KLORtWHAgLEWnMxEeAUIWXcMcI9ToQ9HLy4OuC0SqOZ48pLcsphCjNKraBK6JFC2yRYIwVQ EAOV4VvRBheO4ctrOzMMQdBKDJSbCmE46ubERwEYVr QCP8NJCiQh9ONPUsZ2TxpbPobUwdciTaJSSzFGDEMK0ZFXpmnhDrvHPunWjbCG20pJfnRY7CYl9VIbOa IU9gxz0QiPRaGt6FTSYdXr6MJSTxFCXjAKOzYHK4XZFpWcZgDBdkUPEfUKXfAZZ4VQFrDCYfJV0LOuQw NKIeSUs9PsUaYLSfKPLbbi3UQJWiAVTlLZP3HZNvQG AtGOOhBMdaFWXrLBJdNYA6JACeLUClBB3RTdSuEWRrVJNhOIwpRZRyIIXylv1ZONDjQEPsGbVcIYOsRQ CiGRZkVZbmXNCkBNZvIGIfUESoSWDeXG6UJyKdRUCvVVI4CKMbRYHbMCGksx1FNALoEKCsJzugBpSiNL IfMRVzSBnoUBSxOFT7Ofx3KBEsNLPbTZ5EYcMjWGNk BSM2CACdOCWtRNLdbd9MUCSjDPPpJIR1KeTjJGJoQWNdCZqfZTXfTIP1LHY4TUCwWUDtJU3RKlJgBATa OCT6JHOzGDYbWUYbry8MDLKkSBLbMxR0LqArOHXvXWTuHYtpAAZjUVR3XgQfRTPgGMWvIA1JOaCuBFXz WMl3YFxnKDWlSNCfjw9USKOnCBQsClu0SDDeMMHmPM XmEDprFORuPCK7Com2DKZpZNDhQD4SAbTcQXZvDYieMMgpPAHjVONhie8TJSSvCQRbQJXhPiEwTYGlCM YgGDy0hsVfnAEkTBs1AN3GY2UokwDkCiMKQo1Qg159BYAnDUMbXt5XQ1iyTp8aSQIxTDTFFg9EWHz8Gv QoG4ToEmJlQsS9V4MfWBLbHmLlGXbyUWFxSuRiCOV+ EOwiUPZsKrH2XjV6ATnvJdL7XKVqFEIdN5W0HRYpZZI3Yt5uMMKYZi9+SNhaiPVzrJjrAVOAPqK5YkWg IXtvNQOQCf1Z ID Date Data Source [id number] 10/15/2019 10:14:11 AM EDT [facility] Name Value Range Interpretation Code Description Data Karoline rce(s) Supporting Document(s) Consultation [facility] DFPWHf7uPyVLYbHa17/BTHfwZQHbh6AfZIyxZZt1QOnjGWOtB1JvKAT8fU4aSJM4YCxPJjPpLuKwSHBk lbm [file] AgICAgICAgICAgICAgICAgICAgICAgICAgICAgICAgICAgICAgICAgICAgICAgICAgICAgICAgICAgIC AgICAgICAgICAgICAgICANCiAgICAgICAgICAgICAg ICAgICAgICAgICAgICAgICAgICAgICAgICAgICAgICAgICAgICAgICAgICAgICAgICAgICAgICAgICAg ICAgICAgICAgICAgICAgICAgICAgICAgICANCiAgICAgICAgICAgICAgICAgICAgICAgICAgICAgICAg ICAgICAgICAgICAgICAgICAgICAgICAgICAgICAgIC AgICAgICAgICAgICAgICAgICAgICAgICAgICAgICAgICAgICANCiAgICAgICAgICAgICAgICAgICAgIC AgICAgICAgICAgICAgICAgICAgICAgICAgICAgICAgICAgICAgICAgICAgICAgICAgICAgICAgICAgIC AgICAgICAgICAgICAgICAgICANCiAgICAgICAgICAg ICAgICAgICAgICAgICAgICAgICAgICAgICAgICAgICAgICAgICAgICAgICAgICAgICAgICAgICAgICAg ICAgICAgICAgICAgICAgICAgICAgICAgICAgICANCiAgICAgICAgICAgICAgICAgICAgICAgICAgICAg ICAgICAgICAgICAgICAgICAgICAgICAgICAgICAgIC AgICAgICAgICAgICAgICAgICAgICAgICAgICAgICAgICAgICAgICANCiAgICAgICAgICAgICAgICAgIC AgICAgICAgICAgICAgICAgICAgICAgICAgICAgICAgICAgICAgICAgICAgICAgICAgICAgICAgICAgIC AgICAgICAgICAgICAgICAgICAgICANCiAgICAgICAg ICAgICAgICAgICAgICAgICAgICAgICAgICAgICAgICAgICAgICAgICAgICAgICAgICAgICAgICAgICAg ICAgICAgICAgICAgICAgICAgICAgICAgICAgICAgICANCiAgICAgICAgICAgICAgICAgICAgICAgICAg ICAgICAgICAgICAgICAgICAgICAgICAgICAgICAgIC AgICAgICAgICAgICAgICAgICAgICAgICAgICAgICAgICAgICAgICAgICANCiAgICAgICAgICAgICAgIC AgICAgICAgICAgICAgICAgICAgICAgICAgICAgICAgICAgICAgICAgICAgICAgICAgICAgICAgICAgIC AgICAgICAgICAgICAgICAgICAgICAgICANCjw/eHBh I5jkaEXnodN0B7jcKj6UJg4ONW0am4DlUNRgUGcyvuCiBoiUTvKzNVWsVasKGrq3UPvhPP7OuRDzC6Xa Z9QmXRhyGN0QMCMpGKXadTHrQULpUKNiEhA2KHHhEGcyJJ2MnUIlSJdaIHAzHDSqFqZpMEKaHDKfVYNv VLFeYFGCSJBuNYTkJwSmWBFcJXNfZXfdGWVAHQ0ONc ReW8QwbD07XRqVKd8+KTmrceNqRyfLOmYyJEJod3KsKOr7RV9DPGJyIfuor5EbYNQsKXKGMBkpTZ6MMG S8FQKpKUNvEc4CXZUmY554guHmYS9TKo5HDkToMR5wib7EYKYmDDMqHhiZLbi3FNowJS4LiMKwVTzEl0 5gnVt1ogZgdLBNwM8aDKkpRPrwlYBtiKdfDOZcTXQr VH1mFnNyOgMvEDH6JKFuMG9mKDwvSJ3ROVP7IMdvDFNxIJPdJ4pVGoJiWPSsOaXhkFrrVQ3PMnIcA7Mh fvBldXW9WUBoCGBTHr0+NUfbchHpHapNUpHbCDUuy6MyFWk6HV8HDECuVTvhLP8MUGDxeR2uBKawGZ4O GxBdGAMpGKMATqLtO33hcTBnZVo6E7IhFgKuFGTuJz lsZXMgPDwvTmFtZXMgWyBdDQogID4+ID4+KVrrIV0RNTzsstGpRPUhLw6MJDWlNSKhUU1zCKAsVEYoG2 D8bZwjXJGOFzTeZ5gjuwiqHH6gUPYoY735cUqdyqJeRHDtBADqSs5NQFEwBIC7OOQlgMUuYcxoCZYFOK ewLH1XzNEpUND4vA1oTEudPNFcBLCmP1jVPvXtrNpj AP57gHmvewYesDFsRTp+Lp1QGT2rr7VeFSk6jsZnMQhoMDBiVOemCQNjAAXvWZAgXUV5EZS2PUFCTzOp ZAVwRAStTNjtTOTuPFDsrk6WXXXkLSYtFTf4EpMcRAGwEBZgLMgeIPPpCDYyTfD6SUDhFENvVL7HOzPr IHFgEJYmSKkxRRYnYAHtyb0JXMVkLLOxNvoyFYPbDO EfLDHfZNfcNTAiEUDfVHRqYXTkTQRuGS3RYbJvDDLvWIQbOcUqXHVmZENouf5TMIQfYCZuPaYyVWVoYN UtBRRzRHpxNUIuXNI3ASGtOKWkKNBcOM3BYbJdZQHlIQkiMWIdUHPqYWYfit6QFQKwAITqEew9GqQnBQ RxYSAkUVmbECGnMHXfODkxRNTsQKKaRX3RGsPjYDVg DUKmMlGuMHOxFGZekc0JVEGhVWOjGSP6LqXdJFXgYFJvIQfbWMCiSYS4SeGuDSMgEMPpCL2GGbFkJBAx IRr7TajxFMBaCHNpin4HMQSxKSTmSJJgROMvJDNuXGFlAZwcSCMhDMX1BXD7ENVePJUyOT1TZuNlJAOw WuC6WljmGYEvUTGmca6SJYOxMSEjGWq7HZXaWREmED EkFUsrXLUiKSAzWQZ7YZLzLMQjFW6ANjWsCELyGhFjJWGwUNAcAUXduw1TGGGfWJGbRgCrYDCgSQOvAA MuBTdrICSiJQAuVHd0RBOsLKJaSN7PXsShVMQgVpS2MUJaSDCkOBCnon3BHXPoGDGgXjQ2EwOdRBPqGL UbMLgbSZJkQTZaXPS4QJMaCOZnDI5WTnTeXORfXaT2 SAHcMHMiFBEsgw8IOIKqDMPvDMRiVGJuSDGhIUHjUBiiRTXcTYZ7VLm0CWDwNBVeWE7SZuTtQTCvCzXx YRsgCRBlWRVcej9RDEPvMXSyIgO6LxNhTOMhKOPnQUxpILYyJHR4FUWhYUEsJXAlGD3PFcHnBZMnBpq2 FbheNKHbITVblr1ENNHtKTIuGYV7RkVqVTNkVGPnNT ceIBGsERL7GJK1QRTeBBDvTQ3HQrEwDKXiCjz9UARsOTCgUYLltu2ZDBPuBDJuWIi1MTReUFIcRTNpPA miOLJuQDG5Cbd9VMVlTUMtDG0SLhQrHLFhVGP0LkejCJDlJTIrkc5JOWFoUWN2FYv7SMFgUCTtPKBwNN lyNYAsKVRcZMoaPCBwLRMiWR6BYgOmQDbaUMZCJum6 WSehW4l7IEU8Qi4TB8Fsq9LeOXKfTKTRINidMU7jkeHqGRSqQi8TH6bXYfiaHPJpRnVmFUCqBDUiBkNo ZGWfLYQnWJP2GnC6NQSjOd1gPVQvKCX2ZEKiGDS5HjLkKkE2DBQhHCG8GJhuWfo6IYG3YxWzOP4OOi1N OvU2DPX3lAEqMs9UYPZfSsWTRkBxAF9NTVi= ID Date Data Source [id number] 10/13/2019 10:24:10 AM EDT [facility] Name Value Range Interpretation Code Description Data Karoline rce(s) Supporting Document(s) Discharge Summary [facility] WFHMVa3wQwBLNuKo81/VVRhtAFHkq7ScLJlsVCq4ESefAUShL2ZbILC3sA9gKYV9SGrWMxPgNzPvPPJ7 lbm [file] AgICAgICAgICAgICAgICAgICAgICAgICAgICAgICAgICAgICAgICAgICAgICAgICAgICAgICAgICAgIC AgICAgICAgICAgICAgICAgICAgICAgICAgICAgICANCiAgICAgICAgICAgICAgICAgICAgICAgICAgIC AgICAgICAgICAgICAgICAgICAgICAgICAgICAgICAg ICAgICAgICAgICAgICAgICAgICAgICAgICAgICAgICAgICAgICAgICANCiAgICAgICAgICAgICAgICAg ICAgICAgICAgICAgICAgICAgICAgICAgICAgICAgICAgICAgICAgICAgICAgICAgICAgICAgICAgICAg ICAgICAgICAgICAgICAgICAgICAgICANCiAgICAgIC AgICAgICAgICAgICAgICAgICAgICAgICAgICAgICAgICAgICAgICAgICAgICAgICAgICAgICAgICAgIC AgICAgICAgICAgICAgICAgICAgICAgICAgICAgICAgICANCiAgICAgICAgICAgICAgICAgICAgICAgIC AgICAgICAgICAgICAgICAgICAgICAgICAgICAgICAg ICAgICAgICAgICAgICAgICAgICAgICAgICAgICAgICAgICAgICAgICAgICANCiAgICAgICAgICAgICAg ICAgICAgICAgICAgICAgICAgICAgICAgICAgICAgICAgICAgICAgICAgICAgICAgICAgICAgICAgICAg ICAgICAgICAgICAgICAgICAgICAgICAgICANCiAgIC AgICAgICAgICAgICAgICAgICAgICAgICAgICAgICAgICAgICAgICAgICAgICAgICAgICAgICAgICAgIC AgICAgICAgICAgICAgICAgICAgICAgICAgICAgICAgICAgICANCiAgICAgICAgICAgICAgICAgICAgIC AgICAgICAgICAgICAgICAgICAgICAgICAgICAgICAg ICAgICAgICAgICAgICAgICAgICAgICAgICAgICAgICAgICAgICAgICAgICAgICANCiAgICAgICAgICAg ICAgICAgICAgICAgICAgICAgICAgICAgICAgICAgICAgICAgICAgICAgICAgICAgICAgICAgICAgICAg ICAgICAgICAgICAgICAgICAgICAgICAgICAgICANCi AgICAgICAgICAgICAgICAgICAgICAgICAgICAgICAgICAgICAgICAgICAgICAgICAgICAgICAgICAgIC AgICAgICAgICAgICAgICAgICAgICAgICAgICAgICAgICAgICAgICANCjw/pPEgH3dsqRJyjzQ5C0gvNz 9AVm9HVR1ve0BoGNOfRPspdzFmNeuGHrSsEKCgCdqR Xer9RBqqPX2NiIIsN2IuY4DjKDwrRV4QFNZtIMQowDPnHDEdJIHtKgD8LGOlDJduUM1MvBGsPPowMBZl YSMiCpEfVKMqNYCuNFOjXCCiEBOBLKScXSJfWpRdUHixPA7Ie4ScgQD3MJo+Ro6RVX2xr6AyNJbaLWUc LN7nhi4MAOgBItOjP1PuklV1HTFnROWaYs5JHDCyJI JurAXvApQuZRUZZsNdL8HpeM56ZEKXAe6+NIgsuzVqZcpZKbYnNHVza1KwOHo8YU0LTAZgTLv4cDGwQS udQ0xayryuJTU1xQ0fcfpaSacoUVQjOT3hGUFeTdOOYXxjobeeARGyYBNaNH17HoTqHbZdMVC0WkXpYC 2lKLgoYZ6WWUT6YNqzRNTpIUSxC1bDVzMjUASvSsNk vPzxRU4UZeHgJ1McqmNrqPKgUZLnUELSAa7+LDeliuExKnbBHwHjJWTyt9HqXNo0SM3KRQFiVTgfWC2J TXRrfY0gCNlbUM9XSfKeHHThIXEDKmYfX19cnFFbMOe4U5GrQlGeWTJeQhsePDXfEXzjIsWmCHKmYeQe DQogID4+ID4+PYfrPC4VCMuohqPyJLQmDy9NYURuLU JfWK9zXLFpTQNsZ9L9pNzrPSOPZxUlK9klafdcTB6zMGAwQ084kRciwqRmIJDuLUKdSi8LNMTlPSA4AO YwkGQyHlXgEVEDZImzPT5HeHPqHWS0mS6qWCmxRXSlZHJaH6jPVtZuqKmwII24kFbbxlYymGRsOCo+Pg 4ALK3is6LhUVx7syKiDMkvFRX8KPfxVBSqDMKtQJJt IVW7RGP1ODZBLvOmHBIpQLNsHJmnQSFcLPItka2KKMDeGTRqZnA8PODjURTeNZPzOMafUFIvJYEqTKA2 LENnEGTcZK7EHmRgNIAwDUWqEHbzTKXsQPVazu9GPVHvBDRwOuz6DASsRWFyBPHyBOssJFZpJHZ7WDU8 ZNEtEJJgOB0YQkDwJLXzIXxpScCvFXScIKAswi1BBD BmOSGoUMSjIJFkYUCxOKMbJBlpGDEoZGNvTXZ2GEHyCAZaVW7SHoPjNDFyOMH1LPvzHLQxFGExmx7IHM RwDPYhSJPzFUEkEHZcKDSfWFwlFEKgVHH9WuV4ZIXdTOVwAR5ANaMrRXErSVDjKPToBFArDOMxpu8SQP ZfRGWuABD5EAMwGFYfXPFpUSjpIUOrXAA5LxC1FKZr OOQoIS9TZbRwCBIlDAY7JWDiGDYwGVZqox4NXAAhBFFwPeueTHRsHXMhNOHyBSmyKOGaQJB2Xrr4GULc JEFdIB3FTbPyIYNoTJc0EXboBQQjHYDejw8DUACiRKMcIVX1AcEzDNMqMOUjSDwuRZZgRWC7GSC9PCVu IISoRC8JFvZvBWLdMNpqSPubGMZmTAKcbn3PGFVdJL JqIIMkUlRzMXStOAMiCCkzYUZvGBUnRbm9ELJoBUDsYG9JRpSeCQVmEiU5GYEhENEjCCQtyp0XWNBvZK KiXDp7MuNmGIXrAOPiQKdyGMAwAKLjIvP4FWNeCUFuBV2RDtDiBXJoWnJ9UQYoSXIfTXKljg7GYMFmRA FcNtBfOGFfUVQqVJYgPHgyZPZxFKVjCEi6JDXcVAKe PC1PAmKpWZOxArBfCKOiNMUvPGCrjm8ECNBjDBAgQCTtYSGnDPUkPPFiXSbkRMMcHXQ9Lcz3CARdXMBd EW1ABsYtJFejVOXOMfk3ZCakI4t0UKVoNF5WY1Lrh9JzFdZiUENDTHztOD1oyhHcBLUxXt4UL0oOEamn QBj4LMExXLJySZEtAummTyJ7LFM5AfaaKRT9NGWeJH 5xMAX8Ptg6D8AzRgRuEJZnUlKpOmmfUdqhBbL0GLucSoRsZbGmMY4EIb6IAmZ1OMR7bVZhTf8JMxO6Dd LTQuInRI0HQKd= ID Date Data Source [id number] 10/12/2019 05:49:40 PM EDT [facility] Name Value Range Interpretation Code Description Data Karoline rce(s) Supporting Document(s) Progress Note [facility] ZPXLTk5qMaZYXlYr89/NHGldMNTgy1FlAWkzLVk4KJwxXFZhV6UlUMX8vD4eKLS9EOsIBoCmXnYlJJB3 lbm [file] vPBEFHhTJcwlk5Wj4fw2krjBNXL4BgI3f9gA4xX9BjxbEfqhiXZQTnr/Emxw7S3m3lyXxgHb+OeCx/knowledge manager [file] FlMDRkZGJjZDliNDk+HK1pCCu+Bo4Hq4JsfgP5ryWtJMhoFBBoTA0NLHWSI0LYNp== ID Date Data Source [id number] 10/12/2019 09:35:14 AM EDT [facility] Name Value Range Interpretation Code Description Data Karoline rce(s) Supporting Document(s) Consultation [facility] UKRTPi8uStCNTdFk57/AFNkkQJDpv1QyWDexCWm5YWvaIXTiS5MrGOW6rN7fMCK4SOwIFeWsRtIpKRB9 lbm [file] ICAgICAgICAgICAgICAgICAgICAgICAgICAgICAgIC KeXMTmAFTeZMOrUSQqFL2QEWQoLXPzXMVnUKHgRVUiNQKuYAFtSXZrTYLwNKBoCXBtCYXaVRDtTXYbBO YsLHNoMEAfSEEwMWXpJWPlNLKkOTWiDLSaOQXjHTIaRYWhVALmKJZuZHIlNMCcBWGjBBTaKTJvJP8OAB AgICAgICAgICAgICAgICAgICAgICAgICAgICAgICAg ICAgICAgICAgICAgICAgICAgICAgICAgICAgICAgICAgICAgICAgICAgICAgICAgICAgICAgICAgICAg DNTvAEJkLT5FJBDqZFCyQIPlUATvYTJcVZEsDKQkPEGlBYWxVGOcQBGhGGThLQJoMMGxAKFkPTTsCHZt ICAgICAgICAgICAgICAgICAgICAgICAgICAgICAgIC AeHDRkYOFtOCQwZFHwGUUcVG0WPLScBARbRSYqPTIrCXSfVZAwSFUzLAVjBXUvLNRtZMCfDSKbJFZkEI AgICAgICAgICAgICAgICAgICAgICAgICAgICAgICAgICAgICAgICAgICAgICAgICAgICAgICAgICAgIA 0KICAgICAgICAgICAgICAgICAgICAgICAgICAgICAg ICAgICAgICAgICAgICAgICAgICAgICAgICAgICAgICAgICAgICAgICAgICAgICAgICAgICAgICAgICAg IBYeATJrUKRzKJ0GIYZuTEIkTYUkJFAxZUDdIQRfJXWgWQPvRCAyJNWqYGBwGLNhRIUoPRDwNBUjFFCt ICAgICAgICAgICAgICAgICAgICAgICAgICAgICAgIC ZcAWAbWRAzUBBiUKGgGGDgHGWtXW8TWQOhBQTlOVNrKXSqDVXuIFWfDBLsIUVjSWSyJCQvWPEwPYCwSW AgICAgICAgICAgICAgICAgICAgICAgICAgICAgICAgICAgICAgICAgICAgICAgICAgICAgICAgICAgIC JyYP1RCQOlDRLzOJOyYPLhGRKnFSPjBFDzRCLlYOLi ICAgICAgICAgICAgICAgICAgICAgICAgICAgICAgICAgICAgICAgICAgICAgICAgICAgICAgICAgICAg BLTpQSGdRZEeTCQwTO7ABAQkKEFrAOJkABHzUHTsGECfERXcZOHzMFDyCNToKCNiPDRiVNHnWJVaSQEi ICAgICAgICAgICAgICAgICAgICAgICAgICAgICAgIC CvWCFmOKZuCMVnZWLlZHAfEYRvHUCbCA1YQE37gIRwx0Y8LAUqIE3lvzn/Ij8VYKckxpCggBWiJR8KCd LrQC7zoj0VVlAzSU2mct4ZNPcQQdRgD5E0jUCjLHRyVMTMRqAnL74hCUhfOo87PRhoSXFeAhAjXIi8Dv 2XMfQmR3huDVVnWnT3QZCeQbXqFZtaJM9Yu9CppKCz DQo+Xk0KLX9gp6UdFEhsRWYaXW2rps2OOFmZGcYlF6PjllH5SLH1QSSfWm9GJPWmQFWecMYqPBUnIVSO UeWsR8FgmX88AVYMDy2+NIwrbjEmNncMTxA1RAZnp1YwFZl4CR1PTJJcMRa5xAGpD10uq3HszXXlZrwu CZTdmZPsnSAvTZSLn1NkpXYgQQPMFIOKECJ5AXcrQc 6fGUDhHCJ2SsKmCENDPR3YSUSiNTIeiCHqINQwTNZISZ9WACkhUXU5ZBGilbLllACvCHhxIM8SYSYjrc QgMTQgMCBSDQo+Qi1IHA7bn8ThDJmzTdFhUN1luj1NJWhKLaQtW1X8yBZjW0U2WFwmPy6XQZIkKQJwPB ZaOZOPCJnpPT4AEC6jpuV4VI8PiQCiENOpFRAklKJm JKh4W44qmEKgLCspEZ9DKMG+Greta+Ib0SQPUgFETjOWLgVpBzPSDESrTlD0SpM5PTj9CjF1RrRA30aVsh zrLxHHvcUM4WQI4aGVFyAUBMMG4AeNBbhT8zlqQrLMAgWQWRAvOsL36jaWImBZKsOJQbXJSsSk8YPPOe H8PiruQuzNzorrNmWGCrEVHAYC2MJRtjuhRlwXAaoD jkIS22aFffNA1DAz6STrGmIW9psn0HvEVgWo3SUFAiMd9ILEFzDJYeOLGjQNQ5HFOjMjYlECfcEXKgRH QhHJY7PZXyKXGpSF0KCaKaOLLvXNC4LdboDRYkZLRxkh8YPZWwTBUaKlU1JDJwPULiDREiIVsiFDGuMG YiFFG1FCJrXVHjVF6QJfThBMKaSWW3WDdsMRXsHWBs qj9IQVMmCCFtKca3DvCsUENjIVRsSWyvTCXgUIRyElEeNWBjOUXkHD6ZMeCcWEDyJBN0QFwfRQChWOOw iy6AGDPtXZOiCKZ5SjAhXEQrMZYzMDnvURXnVXA1MSD5ZKUgBYNbGG3AGuJkETUdQTOgJHzqFQFsURCj ug3QZAGkNRSjWKW1TBTdCVJoMASkAWpgVFIzRNM9XK T0FOJiDAJdGK1PFtWsCAQdRBvpANMwDIRcAAKlgj4OTXPwCPWcKpI7ArPgRKVeZJUjQSeyOQVeAHM7HX Y0FXSuAPQeWS3EOjVjFCeoROQUThh1PNejG4q1QOMiOx4QE1Iac9YaVWVrEADSRZyqWC5dbzEeXRAuXq 1QP5pMTuj6ZXoqSOO6NBziEQNkTMRqN0CjPST9MMbo XDV0VKY0VS6rDKbiMYH2IbRqMVH2LDPuLGBhKMFbIKzjNEZuQEv6PrGrVwJbQO7RFb6QWcN8ALN1oTAl Sz5GIkj7ML9PIIRYN0KXNl== ID Date Data Source [id number] 10/11/2019 09:51:51 PM EDT [facility] Name Value Range Interpretation Code Description Data Karoline rce(s) Supporting Document(s) [facility] ELBZAd3nWwHVZiWqa7DnCtZvQHBuAL8llgh7B2K2jFFwD0QltTTos5myO8SzO3WcGKMoQNBPAE5KwYEz jb2 [file] /z4CU4051l70y/wX7Eo3A6s4900y8xPy7TQNtbfuX3 f/5M03v/wkkjdfRD+U83T3om1/XhJ8/utv3v/t5Brxsg8xybp1C7++/jw0b3635pKZ+3e/hczj45mnc/ PJ1d+8vLx8+Oqbj+/kr6752Bwgs2bfd/3mix+N5XZl7/L19Fvs0mh4AeQHrGz/zdcvHz7/zcfPv/wbH7 wwtyJV85555rQades0+ns+wTzk5b1hedrV+59/8fbl Zx/mechanical technical service specialist/e28zukcMSZ//49po7Gm++/fD+r4oLmuOwgO7Dv0l1204/9e6rDy+/ePP1Z+8+++aLNx/yBD/+ x2jRdf/j+6/ef/2rt5+9+8W7z14+vvzLm1+/fXnzs/dfffjyzRevBvkb/3h7B/c/7k+9cA4uq3/jY/fq s5v75tdFv1yyFra9+cu/vPv4+f0PL1/94uWyc+1EPh X5+x+iEfmG4c73+frdL9/fP/N1lC+fff7m/S/uyl2il21+1lGdub3Zb70+yv2fn/3pj//++z9//93vXv 7tv1++/Oqrf/r87Yd/xBq6Bw1+629l972t7bdvHp93z2P18421+dMfX+ZP+0/sQ52HUS29VqEltbomky /lT/eJ1b///qf/qW6kTk0j9ab0/a+Y46K95N33/P8C vTfqC9w/dM3GEHcEUwqW+vUXvL/9Yeom6tDos0sk8enC2/rx9nK1kD0hqAGPzE/w4bt//+5Vah63uvtd Og9/8+b9y6/fvn/74ZuvfzBY+8F/HTP/8A90ITwIqK4ciiFuvwwRR+rvJG4K7OZLvj+7cZ349I//8g8v f/72L9/94Oyvz+oN0Jsvc+a2WkmVYtzl/fjsG/zVh5 ff//Ev3/35f3/7h79x+m3SH54+f/sgXqfOt48cc/7w9cvv/uv1t//+T3/20zhx518RKo+neLB//vjTf/ 64X00nwOlwFr6kn61PGld4ostsVkt/2dOuvy9PmN1H24kVvo10b16yF070+OTjy7f/57v//Nfb09pz9/ jkH7/15cT6Zs6jUwr6pQ3jH//r3/3o0/tK/OK777/9 ww+u8foB/tm3//Xbb//z99/+2Bhk5Ynw6/d//PH/P3eN+h/+7a//9zHjhz/35jyRx4gtwHDqfrqGC/32 085nT+I0EGdXpR/87rf/8cff//x1D4126cFVRx406/7rr97/6ONBNpIf/8+/wV6007284Z/+47s///W3 hg8Tw/7qyy/fvv/57yh4zX4U5c//R+85GM8B6Xk61e f/14xOtxdOj7/AL16vElfFRg8yuk2r1B3x/vzjpy/6ujjKCx+/X334+krOo14Fg/URTHid0iHZMjqi78 /v4qwhnjj8ue9/FS9JjqOSBJ6or0MzCTRgIoCkPF7yawskHSXxZU3uhvm1J9LevEjqLVaKXWXeZj5mlH AcRQ3SPAH0MDkhVAFxVWHkC0GpiG7vK77smBApMlJc YIUDDZ7VxyG7PFO6NTN4SAWcAhYaFCSpUZ26TOZgTHINOy3aumJuEipFQaSdMH9xhuf0Q8N6zGWfX522 eYskncVpGV0Wp2TuqFKuVA2VmJMaxANuONUiVAMcV6flx3LmOVeyVHRXUp3sctAfBetLEiOwQU5klmk5 W0I9pUfdwkLeOPDUIGhkAswsUN5coChralwlJ2QmtM YfAXNvZ5GmWQGfz32GCRUtVMiXTzOuKjFvLDV1VzL5IRblTdTzGIWoBVQwUDFpZD0PnTOfQYCkHVCASJ qdJjovMWLzhY3efFAFm6EkS7fKYTIfZEfUIP7WDRTfKEK5QJP0AIBkJ6SelrVokFVoVAUEZXmeJvahGD QzfM7acIobV1BrVRG3m9PrKV3IN4YmMQNaJONXMOW4 x0SwYSLwqiqbetyaIcQfOTRhOBYrUKKvZX8Pog3idKSwxjYuOVRKMEcjWcnnME5kmAgrfbgzU7XlsIPk KSA+MiYuJI4fiv0+YfKrAYEdZos6KQHfJTblEEKrMRRqOJVkA0orRAYqAxUdXRWgMlAlGJ4Oa1FvzSZw Dz6apeFnMycEqUByEnyeYEWsNKLiFXMtQtFMFDSuXR ErQRCkLZB6PWVrEFIrJPjfTDFnNZUsLJNfCDVdBKLfDT5xLuBxKNGjDdUcMjMrPLIjHGVmegVFEMVzIQ J2NpYjLRYnUWNfDYZePSyrSTSrWWNzWDJfMDT0DZD4JVJxIpMvVUNfJXPcUDYqBYNvUYMljpSDBYDmDI PlOSK1GYKgAOJrCOXdGSbmZMJsTQCiMEksFFRnHPGt JP8xFbKvDYNyYBRrRDayJXAmGBMpscFREKMpKJAnEYRbOOQmYCZoIGBaWTsvHNAaBZCyBQNlUPWjNBZg IO8uCoBcVKStLLW0LZUwRBWlPAObcsJDQKUeTZJcYFx3QNJgXVZsKIBrWObbFXAfCHSyPRL2SDFxIMHo HO8nFzErNNDrTJY1GiYxJCRfBGCjvbYUFWCgZINsFT U5KdEqNLCgBDJrAEodMQPzYSKvSOyfGJWjMXEcGH4jEeYsXNSlIAKfWWnuWHIiWVNuhgRBOBWlWOOrCS DxVdDqUSXgBJTuWNqgUZEqVIXzNEJ9YJUpFFNoOH8mMbBpDZUfREU6BIguRQLaDFEpwyCTRNQvEZYqTP swHLHuNJGrPWWbVHwpVBSoALZcSKR3LLNcQTNeSF5t UoOtRCDzPIPuHAPeXcI2EoLtHyXUvNPixGlufhe6ASyvT9j8WCIhBYgqIR0pdwMiDCLlSynoWs1uiQH7 BLZrUgkQXo8Ns7FrynY7jhPxMxGuSZY7LlUmFU4N ID Date Data Source [id number] 10/11/2019 12:52:26 PM EDT [facility] Name Value Range Interpretation Code Description Data Karoline rce(s) Supporting Document(s) Prothrombin time (PT) 12.6 s 12.5-14.9 [facility] INR in Platelet poor plasma by Coagulation assay 0.94 [facility] Routine intensity oral anticoagulation I NR is typically 2.0-3.0. Target INR must be clinically individualized. ID Date Data Source [id number] 10/11/2019 12:52:26 PM EDT [facility] Name Value Range Interpretation Code Description Data Karoline rce(s) Supporting Document(s) aPTT in Platelet poor plasma by Coagulation assay 27.5 s 24.0-33. 0 [facility] ID Date Data Source [id number] 10/08/2019 03:07:00 AM EDT [facility] 1 [facility] [address] [place] [address] Phone #: ext- [phone] 10/08/2019 03:07 Patient: TREMAINE CAVAZOS Sex: F : 1965 Age: 54yWEIGHT:102.0 kg (M) HEIGHT:68 inches (S) BMI:34.2ALLERGIES: LatexCHIEF COMPLAINT: seizure, [id number]: Intracranial space-occupying lesion, Seizure, HypokalemiaLAB ORDERSOrder Description [...] Hernandez R.N. Physician; NOTES: Seizures 2 [facility] [address] [place] [address] Phone #: ext- [phone] 10/08/2019 03:07 Patient: [...] Wally(continuous) Jordan Hernandez R.N. Physician; 3 [facility] [address] [place] [address] Phone #: [phone]- [phone] 10/08/2019 03:07 Patient: TREMAINE CAVAZOS RN: [id number] Sex: F : 1965 Age: 54yEKG 03:16 [...] rce(s) Supporting Document(s) ID Date Data Source [id number] 10/08/2019 03:07:00 AM EDT [facility] 1 Medication Reconciliation Report [facility] [address] [place] [address] Phone #: ext- [phone] 10/08/2019 03:07 Patient: TREMAINE CAVAZOS Sex: F : 1965 Age: 54yWeight: 102.0 kgHeight/Length: 68 in.BMI: 34.2ALLERGIES: LatexThe patient's Home Medications are listed below:THE FOLLOWING MEDICATIONS NEED TO BE RECONCILED: Dexamethasone 4mg po twice daily Levetiracetam 500mg potwice daily Egwpmpaldf283jk twice dailyThe source(s) of the original Home [...] rce(s) Supporting Document(s) ID Date Data Source [id number] 10/08/2019 03:07:00 AM EDT [facility] 1 Medication Administration Record [facility] [address] [place] [address] Phone #: ext- [phone] 10/08/2019 03:07 Patient: TREMAINE CAVAZOS Sex: F : 1965 Age: 54yWeight: 102.0 kgHeight/Length: 68 inBMI: 34.2ALLERGIES: Latex Date/Time Medication Administered Medication OrderedStart IV NS IV NS : Bolus 500 mL, then 18990:00 10/08/2019 Dose: IV Fluids mL/hr (can be [...] left ACStart KCL [IVPB] KCl IVPB 10 meq/660xF47:01 10/08/2019 Dose: 10 meq IVPBDavid Lo R.N. [...] rce(s) Supporting Document(s) ID Date Data Source [id number] 10/08/2019 03:07:00 AM EDT [facility] 1 General Instructions [facility] [address] [place] [address] Phone #: ext- [phone] 10/08/2019 03:07 Patient: [...] type of brain tumor 2 General Instructions [facility] [address] [place] [address] Phone #: ext- [phone] 10/08/2019 03:07 Patient: [...] balance Severe headache Confusion 3 General Instructions [facility] [address] [place] [address] Phone #: ext- [phone] 10/08/2019 03:07 Patient: TREMAINE CAVAZOS Sex: F : 1965 Age: 54y Difficulty thinking, speaking, or getting your words out [id number] [employer] [place] [address]. All rights reserved. This information is not intended as asubstitute for professional medical care. Always follow your healthcare professional's instructions. You have been given the following additional information: Brain Tumor(Electronically signed by Jordan Ch, Physician 10/11/2019 09:22) Name Value Range Interpretation Code Description Data Karoline rce(s) Supporting Document(s) ID Date Data Source [id number] 10/08/2019 03:07:00 AM EDT [facility] 1 Clinical Report - Nurses [facility] [address] [place] [address] Phone #: [phone] 10/08/2019 03:07 Patient: TREMAINE CAVAZOS Sex: F : 1965 Age: 54yTRIAGEArrived by EMS. Historian: family. 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 Sepsis [...] Per Patient. BMI: 34.2. --03:10/08/19 David Lo R.N.AxurzgleoggJvlpouxlmr125mz twice daily. --03:10/08/19 David Lo R.N. Dexamethasone 4mg po twice daily. --03:10/08/19 David Lo R.N. Levetiracetam 500mg potwice daily. --03:10/08/19 David Lo R.N.AllergiesLatex. --03:14 10/08/19 David Lo R.N.PROBLEMS:Seizure.Migraine Headache.Cancer. --03:10/08/19 David Lo R.N.Medication/allergy information source: the patient's family. --03:10/08/19 David Lo R.N.ADDITIONAL SURGERIES:Brain sx. --03:15 10/08/19 David Lo R.N. 2 Clinical Report - Nurses [facility] [address] [place], [place] [id number] Phone #: ext- [phone] 10/08/2019 03:07 Patient: TREMAINE CAVAZOS Sex: F [...] precautions. Verbalizes 3 Clinical Report - Nurses [facility] [address] [place] [address] Phone #: ext- [phone] 10/08/2019 03:07 Patient: [...] is improved. 4 Clinical Report - Nurses [facility] [address] [place] [address] Phone #: ext- [phone] 10/08/2019 03:07 Patient: [...] David Lo R.N.DISPOSITION / DISCHARGE Transferred to [facility]. Visit overview, summary of care (CCDA), Emtala forms and Face Sheet provided to transport team and transfer facility. Transported via ambulance by patient monitor with monitor. Report was given to a nurse. Report included patient's care, condition, vital signs, labs, medications and IV's. All questions were answered. Report was acknowledged and care was transferred. (Madelaine VELASQUEZ at [facility]). Patient has no belongings. --06:28 10/08/19 David [...] rce(s) Supporting Document(s) ID Date Data Source [id number] 10/08/2019 03:07:00 AM EDT [facility] 1 Clinical Report - Physicians/Mid Levels [facility] [address] [place] [address] Phone #: ext- [phone] 10/08/2019 03:07 [id number] Sex: F : 1965 Age: 54y Time [...] normal. 2 Clinical Report - Physicians/Mid Levels [facility] Department [address] [place] [address] Phone #: ext- [phone] 10/08/2019 03:07 Patient: [...] results Test Result Flag Units (Reference) [place] [address] -- -- RESPIRATORY CARE REPORT -- ===== ---------NAME------- NUMBER SEX AGE ADMIT DISC. XRAY# F/C TYPE MACY Brown [id number] F 54 10/08/19 10/08/19 [id number] XBE E/R DATE OF : 1965 M/R# [id number] PH#: [phone] TR-06 -- LOCATION: EKG 96534 COMPLETE:10/08/19 07:37 EWW [id number] PHYSICIAN: YOSELIN WEIR Urinalysis: (LEONARD: 10/08/2019 03:15) [...] 153) 3 Clinical Report - Physicians/Mid Levels [facility] [address] [place] [address] Phone #: ext- [phone] 10/08/2019 03:07 Patient: [...] Male GFR Interprentation 20-49 yrs >60 mL/min Unypjg99-28 yrs >56 mL/min Normal 60-69 yrs >49 mL/min Normal 70-79yrs>42 mL/min Normal 80 and above >35 mL/min Normal Female GFRInterpretation 20-39 yrs >60 mL/min Normal 40-49 yrs >58 mL/minNormal 50-59 yrs >51 mL/min Normal 60-69 yrs >45 mL/min Pchxmy82-95 yrs >39 mL/min Normal 80 and above [...] INDICATED 4 Clinical Report - Physicians/Mid Levels [facility] [address] [place] [address] Phone #: ext- [phone] 10/08/2019 03:07 Patient: [...] READ BACK DR CH BY: LSA DATE/TIME [id number] AMCT Head W/O Cont: (LEONARD: 10/08/2019 03:15) ( MsgRcvd 10/08/2019 05:30) Final results Exam CT HEAD W/O CONTRAST [facility] [address] [place] [address] ---------NAME--------- NUMBER SEX AGE ADMIT DISC. XRAY# F/C TYPE MACY Brown [id number] F 54 10/08/19 [id number] E/R DATE OF : 1965 M/R# [id number] #: [id number] TR-06 LOCATION: TRANSCRIBED: 10/08/19 5:[address] HEAD W/O CONTRAST 28781 COMPLETED:10/08/19 5:05 RLB 70161 Reason(s): Altered Mental Status Syncope PHYSICIAN: YOSELIN [...] sulci. 5 Clinical Report - Physicians/Mid Levels [facility] [address] [place] [address] Phone #: ext- [phone] 10/08/2019 03:07 Patient: [...] CT head result. Will likely transfer to [facility] Neurology once labs and CT are done. [...] R) of 2mm. I have spoken with [facility] transfer Center and the Neurologist on-call wants the pt. to go to the [facility] ED. With this in mind, I have spoken with Dr. Moran (Accepting ED attending) and will get a high level ambulance for transfer. She is becoming more lucid since receiving IV Ativan and Dilantin. Critical care performed (130 minutes). Time is exclusive of separately billable procedures. Time includes: 6 Clinical Report - Physicians/Mid Levels [facility] [address] [place] [address] Phone #: ext- [phone] 10/08/2019 03:07 Patient: [...] explained to patient and daughter. Transferred to [facility]. Summary of care (CCDA) provided to transport team, EMS, patient, family and transfer facility via paper and digital media. 06:00 Oct 08 2019 Transfer to [facility] ED by ambulance as per Dr. Moran [...] rce(s) Supporting Document(s) ID Date Data Source [id number] 10/11/2019 02:19:47 AM [facility] Name Value Range Interpretation Code Description Data Karoline rce(s) Supporting Document(s) ABO and Rh group [Type] in [facility] Blood bank comment [facility] ID Date Data Source [id number] 10/13/2019 12:33:48 AM [facility] 10/13/2019,[id number] Name Value Range Interpretation Code Description Data Karoline rce(s) Supporting Document(s) ABO and Rh group [Type] in [facility] Performed at [facility], [address], [place], [place] ID Date Data Source [id number] 10/10/2019 10:46:09 PM EDT [facility] Name Value Range Interpretation Code Description Data Karoline rce(s) Supporting Document(s) ABO and Rh group [Type] in Blood [facility] Blood group antibody screen [Presence] in Serum or Plasma [facility] Blood bank comment [facility] ID Date Data Source [id number] 10/10/2019 05:51:37 PM EDT [facility] Name Value Range Interpretation Code Description Data Karoline rce(s) Supporting Document(s) Consultation [facility] WPJTQj6mVwUYRjAz01/FGUyeKWIrg1DiIImtEMg0GZdvELFmB7UjSLR0iC1mJFK4QUgYRhCmPpAsKSY8 lbm [file] AgICAgICAgICAgICAgICAgICAgICAgICAgICAgICAgICAgICAgICAgICAgICAgICAgICAgICAgICAgIC AgICAgICAgICAgICAgICAgICANCiAgICAgICAgICAgICAgICAgICAgICAgICAgICAgICAgICAgICAgIC AgICAgICAgICAgICAgICAgICAgICAgICAgICAgICAg ICAgICAgICAgICAgICAgICAgICAgICAgICAgICANCiAgICAgICAgICAgICAgICAgICAgICAgICAgICAg ICAgICAgICAgICAgICAgICAgICAgICAgICAgICAgICAgICAgICAgICAgICAgICAgICAgICAgICAgICAg ICAgICAgICAgICANCiAgICAgICAgICAgICAgICAgIC AgICAgICAgICAgICAgICAgICAgICAgICAgICAgICAgICAgICAgICAgICAgICAgICAgICAgICAgICAgIC AgICAgICAgICAgICAgICAgICAgICANCiAgICAgICAgICAgICAgICAgICAgICAgICAgICAgICAgICAgIC AgICAgICAgICAgICAgICAgICAgICAgICAgICAgICAg ICAgICAgICAgICAgICAgICAgICAgICAgICAgICAgICANCiAgICAgICAgICAgICAgICAgICAgICAgICAg ICAgICAgICAgICAgICAgICAgICAgICAgICAgICAgICAgICAgICAgICAgICAgICAgICAgICAgICAgICAg ICAgICAgICAgICAgICANCiAgICAgICAgICAgICAgIC AgICAgICAgICAgICAgICAgICAgICAgICAgICAgICAgICAgICAgICAgICAgICAgICAgICAgICAgICAgIC AgICAgICAgICAgICAgICAgICAgICAgICANCiAgICAgICAgICAgICAgICAgICAgICAgICAgICAgICAgIC AgICAgICAgICAgICAgICAgICAgICAgICAgICAgICAg ICAgICAgICAgICAgICAgICAgICAgICAgICAgICAgICAgICANCiAgICAgICAgICAgICAgICAgICAgICAg ICAgICAgICAgICAgICAgICAgICAgICAgICAgICAgICAgICAgICAgICAgICAgICAgICAgICAgICAgICAg ICAgICAgICAgICAgICAgICANCiAgICAgICAgICAgIC AgICAgICAgICAgICAgICAgICAgICAgICAgICAgICAgICAgICAgICAgICAgICAgICAgICAgICAgICAgIC AgICAgICAgICAgICAgICAgICAgICAgICAgICANCjw/jKOaH7hzfRVkcfE3A0vfNx0HFg2FLO1kv4ZgYP ExDJzfztMzUlgXHdUkYWYnTliLVfg8TFcmDY9CyLMz Z5YyU2EdSClhEJ4QROPhDKXvwTFpDYYyNENsEqL2TSGiQPgrDG0CcTFdXVmsGOUdBXFdEcHrJACaCYHi FYAxLJNpFUNRIMDmKWDrBhEwVFTeUDXcCM6BVWWhB034ymOrWk1CRl8BOlVnEH6qml4VJjmfEHKuJycQ Bpi9YRqfFD5AzGHmlHNaPCLeGYHRQuOhE6ztd0IfXq NhKMIWXOxaYI7Xg4HdnYXqIGw+Hz4RYS8qt0VtNErdZNPrGH8wvk3AJKxJVrFvM6AvdOjsBPBzznZ2xJ TlJBG7GKwuSmSpLQlmNFHvoBSiqC0qMM5LYNK0ANzhSU7dHJMyZMX6YaA0HFDVRB3AUZStWVDlaUZoEX CpNNWXXK2UFQpzKXA9FOManmIzhCLkDEvoRO8OLFEm bnQgMjkgMCBSDQo+Qe0RWS9ln7BhBEdcXDAlEK0rge1FIOxXDeSgF1C4cRHwW4R7NKmpGv9OAIZgOYHc EcupVPEQFYoaRU9EIO3ofiB9DC1EhQPuRDUuXZIjvHYcIWv7K53olQFgVUccIX2SOIC+Greta+Ps9OWGEf VJCiVHJvPwItMLXIZbPaR0PeU2TTc4RnC1LpBK25cT cegxIlRTdmOD8AHH8bSNTySOXQBP6MsUNcaZ7zsyXjAANbBFDGAyMgL17gfVUvFUHpHCD0CYFxZf7VAI KoZ7QdtuAssYyolbPzOIDdDZTENT5IKXwaaiAwfIEprIhzJS60iIyrEY0HMy7NEzWaNG1cdw4VkSNpWr 2NJWFwNq5QDGHmOYTnLRHrMGH0SWBlBfVjFAtmGEOw TKVpITA2HJQeAFDeNC2KSkKnWOPaBpJqIyleNOZsNZOxws1PZIFeMDQdSry1OpKxRWYfYJVxWYguMCTy BCPjCCH6CVWrWBAsXR5GDpNmXVZdSNM0DbBlLQHsDKBzgp9ZSOJbCHErSYSyKnDnWPJuVWTqVLzwAIZv BBT0OQfmQLUhWIHpKW6LLmFbXFLhIXqoSVHxHRMcJF Aexq0YVCAwMDNxOGqbLTFnBBSjSJXwZBmsYZOfCBEhYOX0PKFnMWKcZH7UPjDdISVmJCD7BorjCOUhTA Pnqp0MUYRsSZRmZjHnXCIqZDHjOKBeLUwmEOYkHXZ6UMLkRUNnOOYrRA6GUsAlQGQdZIrpOumeGRQjXM Eoyo1QNAFyNXGcYUUpDmJuHJVfESXmIUzvMCBwCHFd XwX0HMRkBHKiHN5EPhWoXPYmAqBmLrheUNSwKIXqmu5CDUMrHJXpRCM0HmXiJNVsVOTsABfqGMMkVXJl IDD9PSWxUKUjRB6RKxXsSFVyFdP9RZsrNJJrDKZjyz5WKACzOZKtPjnqAJIqKFHsWQFoSVslQWOuCNTf HKK1KVWpXQBwQN1YKdSzWDUuViPdHZDgWPIrPMTycy 9YDMJfRQVjSHSiEEWzMCAdIZSbBNalWXTtQXY3DQHmLSPjKGHeOB5TKaWwBROjTcPbFZymHJFnLSUnhw 6RRMRwDCWfOIHuZZFfUCVsKVTgSLgiWFXeXJK3CqD0AYNzZIDfFE5LYzKqBUOyVvodLuxzYWShCTOraf 1RRBOjSOJiIiX2RBQlFXZuZGXfFCbmKSYkFMJ9Wwef PQFcFNOaBS9LYtTyXJqxRVQMEty7UAkrM2u7FNMiGx0KJ8Gpk1WkWwDvVVEZBXtkEY3kmdKwUOXyKp2H D2uHYmngXDAbTiw8YELdXiY2KXSyDYZuOYRiY4IkDthxAne9Gt5oOUL1YYPaCXguGZNpJIgbBIGaQMIv MRF0QCKgNNLlOuZdKsCjTG8ANk8HCsH9AEL0lZDwCz2EZxo9TrTBFfGcBB1BAHk= ID Date Data Source [id number] 10/10/2019 10:22:06 AM EDT [facility] XR CHEST FRONTAL ONLY [id number] RESULTI nterpreted by:Sai Laird MDYoungangus Hastings MDINDICATION: [...] rce(s) Supporting Document(s) ID Date Data Source [id number] 10/09/2019 09:19:18 PM [facility] Name Value Range Interpretation Code Description Data [facility](s) Supporting Document(s) Consultation [facility] UXUHSr2pIjUSIfFg10/GTXamKUDtw1XuSRbyWFu1TSnwYAYdI2ZiEWS7aY9kVHK0XYpDTfHkOtQdJLN3 lbm [file] ogICAgICAgICAgICAgICAgICAgICAgICAgICAgICAgICAgICAgICAgICAgICAgICAgICAgICAgICAgIC AgICAgICAgICAgICAgICAgICAgICAgICAgICAgICAg ICAgICAgICAgDQogICAgICAgICAgICAgICAgICAgICAgICAgICAgICAgICAgICAgICAgICAgICAgICAg ICAgICAgICAgICAgICAgICAgICAgICAgICAgICAgICAgICAgICAgICAgICAgICAgICAgDQogICAgICAg ICAgICAgICAgICAgICAgICAgICAgICAgICAgICAgIC AgICAgICAgICAgICAgICAgICAgICAgICAgICAgICAgICAgICAgICAgICAgICAgICAgICAgICAgICAgIC AgDQogICAgICAgICAgICAgICAgICAgICAgICAgICAgICAgICAgICAgICAgICAgICAgICAgICAgICAgIC AgICAgICAgICAgICAgICAgICAgICAgICAgICAgICAg ICAgICAgICAgICAgDQogICAgICAgICAgICAgICAgICAgICAgICAgICAgICAgICAgICAgICAgICAgICAg ICAgICAgICAgICAgICAgICAgICAgICAgICAgICAgICAgICAgICAgICAgICAgICAgICAgICAgDQogICAg ICAgICAgICAgICAgICAgICAgICAgICAgICAgICAgIC AgICAgICAgICAgICAgICAgICAgICAgICAgICAgICAgICAgICAgICAgICAgICAgICAgICAgICAgICAgIC AgICAgDQogICAgICAgICAgICAgICAgICAgICAgICAgICAgICAgICAgICAgICAgICAgICAgICAgICAgIC AgICAgICAgICAgICAgICAgICAgICAgICAgICAgICAg ICAgICAgICAgICAgICAgDQogICAgICAgICAgICAgICAgICAgICAgICAgICAgICAgICAgICAgICAgICAg ICAgICAgICAgICAgICAgICAgICAgICAgICAgICAgICAgICAgICAgICAgICAgICAgICAgICAgICAgDQog ICAgICAgICAgICAgICAgICAgICAgICAgICAgICAgIC AgICAgICAgICAgICAgICAgICAgICAgICAgICAgICAgICAgICAgICAgICAgICAgICAgICAgICAgICAgIC AgICAgICAgDQogICAgICAgICAgICAgICAgICAgICAgICAgICAgICAgICAgICAgICAgICAgICAgICAgIC AgICAgICAgICAgICAgICAgICAgICAgICAgICAgICAg XCOjVLAfGHAdBUPpQTEvQEUtXWb2O3irQQDfVPErZP4tTIw3Dq1+VVlNQdVmYDO8kpPmbB6JPI0pr7Sl TBdoLWWdn2HvAQh6RB9RGZXqIBiqQP6SLVrehu3IUPFjGWPrwDVUi9gwOcZzZDC1JFLdBhwpUD8FGUDx H2qyjmZgHZStKRWIVFxkAUOTYGiwCKQYCTWcWUUiDe MsPXmxQS4Zw9RapER9INz+Cs1ZNP0wr0UoYMmwGFHoXS1xfj1LBHjSXlZqZ5BgqwT2GBD1UTOuGq8NUA UxUDTgeYEmUpXrHZEXHlAeW5TeuV23ACIAFi9+SJajqiNgKjbEYoH2BKUwd7LdSMn5BT9JLISqUSj1zK TfS67jq9TsgBSbJyurWeSoiFWmvpoaBYEJwB8dkwRq HDHAWGY6YLbdVZ1yKSZuFXC1MlR1REICIB9GFJVjMSYzwXQvHGNnPZNRNC6ISMbyKUA3ICJbknEypQKy VPpwLM6AKUHsbrEjXsTqDOPIMVg+Cv9RVO3mm8DgNGunZnHiCH2wmi1AKAmYGxIuD6R4zKWvC7K2PXjo Md8WEQNoBIAkLxXyYSOXMGiyJQ2EJB7cifN2QU6FtZ RlWUMaJPDyuPMsQCf5Q45huHAaSFqsPJ8GPLU+Greta+Nx3WRNVjOQIxVQLpZzMrPFQBFzWmK2WpS1EFu1 VeY4GjEZ04nAlndlApNHdeYJ0QUK6oQYNvZNNEKC9UpHMbmO1pqyYlRKXkACWCOlDcV11luTQyQVViCN C5MFHbTv9ALQNyE2RzfdYiaUkhhiVsFEVbEYPEDN0X NVwgoaSnpTInxZtgXC55vGioSM2QRf1IIjYkYS4tap0LdYZlHa8KXUZuXC9RDUWiDZBfLZEuOVM4VHUv NgQuIQidOPEjPPIrMMY8NXXsWGNcYO7CUyRxHJOhPfg6RNFqEYNoLTZmkl2NBMXhWWGsBAZ7FhWlONUl LMGfUEvbSDNlUDFlAIJ5BXWrUJIzNQ0MOmVnDPXkRS DuFRrxZRAuDGTjih0TROBySSAyXFF4OqIwJRGqLEJxEGfdHBFuAJJ9QWOlXMIfKVJiTM1QChZwURCpQK kfVHlgEROhLOHznk8ZBPZcBMGxVPZsMLEdWMYkVNAaROrtITOpLWGlGJCnWJAnXRFhSQ6YEhWkGYGpEG W0EgrtWOBoBLKfhl8HDMAxVJAyUsJhHTFfQVYtPUHr QPosAPWaGQU6YFs2AJYzWRRwEP9GCtXpKEDdDON9GSGiWADsWQPnwt2TPUZuNUAzUMf8NJJgPXPbWTFv UUmfABVkTAX1DUP7LTFeDDRhFI0EUiQdLVNzDTBpYwImHNUfAKScjb1IXLUhQQJzRgCxEPVrCZDePBFi RBkkYIXuJQX8QfO4WCMuEFEyTS0BIlVkTUIrOlklYg xiPSJeHYIgcm0TAKWiDVQzDAXrGwFcEJFdPRIaYVeeSVGfEDC2CFs3ATFcZGSbLR3JImAxNHYeJwe4Pu VdOUDdETYstb5BKCGvKULmWECbMkZyWOFaWGXtEUadDWIjWRGgFUc7WXImQAVxTF4ZJhRrTOTlGmN2HB NpRQFaFZHekr6JKBGuRNKgMJT3GNBsLFSdMICvCNp9 meOgbWIfPGa1JY7JO5TmigAbTkdQNu5Qe194LDQ3EPAzZb9MH7esKv0yULElXVPDOu2LOVt1WXseVvL3 LUWoKmL8JKawJhDhICL6FaNkMaQbXOQsAeF+SUf7QODcFWolUUN7MOvmOsFrKnPyNVhcQCAoPzIvNoOy LZ0lEYLPCk9+VBdnqKKmvPswNFZAIuIjYZC2FRgdXCJTVq7R ID Date Data Source [id number] 10/09/2019 04:42:31 PM EDT [facility] Name Value Range Interpretation Code Description Data Karoline rce(s) Supporting Document(s) Consultation [facility] FXAWYs8eZxTESwUl27/CHLywEOQgv1HtWUikJDs7FKfoWVBqI9SfMWA7cC5qPVX1SXpEExFeFbTwQLN2 lbm [file] AiRUo6UoDjXgY9OiAfGZB2IVY7TS9jEZIEVh1+TEaeuDUvcVcqSKJLTgS5WRb1RVbwBVSCDy0V ID Date Data Source [id number] 10/09/2019 03:16:57 PM T [facility] MR BRAIN WITH AND WITHOUT CONTRAST [id number] FINAL RESULTInterpreted by:Amy Seo MDINDICATION: Known anaplastic [...] rce(s) Supporting Document(s) ID Date Data Source [id number] 10/09/2019 09:29:39 AM EDT [facility] Name Value Range Interpretation Code Description Data Karoline rce(s) Supporting Document(s) ED Provider Note [facility] AZEDIz6qVwSOBaVo44/LWSiuBXUui4HpIShxAIg9FBixPWLiG6GlJTE9aR7rLCA7EZqLJrYqNwIyFBE5 lbm [file] 0K ID Date Data Source [id number] 10/09/2019 02:19:39 AM EDT [facility] Name Value Range Interpretation Code Description Data Karoline rce(s) Supporting Document(s) History and Physical [facility] HHKIPt2gEfMLBjEb45/JNPrvELEwk6LvGBfxWLc8FDrrVHWoI3HyRHS2pM7cXVF0GFmQVoBvQcSfVPG7 lbm [file] AgICAgICAgICAgICAgICAgICAgICAgICAgICAgICAg EHHbNAGcIUGaSJ5MSPAiRSZgYAJaLFGkDZOcVUYbCIOzGYOuYPYgCGGhZONqNSZkOSWvVKNlYNSkEWJf SGVvNZQtFRAvJXMhMWUwZWLoXKHrSEMoMBRuYBJePYLcAPNnRGXeIGKvSWAbGIHuWNRsFG8BTBHrQPQi ICAgICAgICAgICAgICAgICAgICAgICAgICAgICAgIC AgICAgICAgICAgICAgICAgICAgICAgICAgICAgICAgICAgICAgICAgICAgICAgICAgICAgICAgICAgIC SjCK6HYAWqZRJuVNOzBLJlUUWuJCIeOONgFNOcROVlHFYkGXOcDEKzNBSsDPLhPJFyYFVyZTBmPKBwFB AgICAgICAgICAgICAgICAgICAgICAgICAgICAgICAg KOWvLVCuRULhCFBsHU1ABMRqHGKvTTUxINMbVPXvHGXvVRWzKLPiXBUxMPOkLYFqLROdBLLlVNTyLZXh NNOiZIIpVHDqLPKsKJSgGTYlKBFyJCPzZVPsLFSyPMBvTAPbWQLhUMRfWAAtEYMgSWQqXDWaOC8TDUDn ICAgICAgICAgICAgICAgICAgICAgICAgICAgICAgIC AgICAgICAgICAgICAgICAgICAgICAgICAgICAgICAgICAgICAgICAgICAgICAgICAgICAgICAgICAgIC SjUIQpUQ2EBFBhQRJaYLDhUBVhLLKiUBMmLXXyGJJaMOYlFDSoRXJgBTXaUTIqWDRkFBXrXLXvSMObHD AgICAgICAgICAgICAgICAgICAgICAgICAgICAgICAg MLDgLISfRVPbJFOrICFjJO0LYIBnEPCyEFAvXOShKYMhWGDxPSQlGKWwLZBuNZMwTLBtOWGhUMJqRMCh TNKzXTVxLCRmAFKjIITyUJWaEKLnLDBnBXUvVWFoEEOuKVUtXWCkCLKvCWCdCUYjNQVqGOGoLMLnND6X ICAgICAgICAgICAgICAgICAgICAgICAgICAgICAgIC AgICAgICAgICAgICAgICAgICAgICAgICAgICAgICAgICAgICAgICAgICAgICAgICAgICAgICAgICAgIC RmMZSzDIVjLM4WDVGkAABhJQVwRHQmQDFjDNPxCQNsVTZkGKHyPSQmVFIaWIWxEWUpWZPaRGVnGNOeSP AgICAgICAgICAgICAgICAgICAgICAgICAgICAgICAg EKEoNIYeNMSiHMAqSJSoPPKbIF6VRB32tCSrp6T3AYOoLU5sorx/Dl3PYTivwtMohKPdEB1NWbHcDA9k iy7SBmOvUV5awc2SQSzRNiEcW9B7vZFiPTVsTYMHQfNsD86xUCfsGm08ZNgqEAHjUwVcYJs8Pl1HAqNs Z4waDIMtOgX4TOSpNbQ3KCKhQcF5BRKgGbXnHUPxLR ZqSTDaVAIFYXV2SQDcAzFwOTbvVV7Zg6IajXH0EXm+Bd4UXJ1qi4EhXKr1YPYrVL2ryc3IQKkUNjSqJ5 AxexY7VDVdDSBnYu2SBNYyCURkzGG3ASOtXTFZFqDyT5WyfY74PCVHPr0+DQplbmRvYmoNCjQxIDAgb2 LqVQf8ZK4HYPBgFXv3fNUyYJPJITM0WXCzYRVgQTQJ FED6gKcuPXAzWHJnZJ8eKhTlXgOeNKZ5ALUaCH7oTVrhIY1QJXJ0YVtcTEFpDLWiW8fDPzSlIMNwGqXr xQptZG8WMiQzP1YnayPmaVE3VBQlIXYJQy3+YTtkcoYaBvpMKbQyLAQlg3HmHBa2MK6PXTGvNDlbQR4S VDQneB9gUKmcPJ1LTyUcJGUsOXESKkMkF55lfTXnGN t9E8UdTsFrLXHvNmjqMDGuDMdmOzZnQXQjRgZsWLvkEV4+ID4+AZhiRS9DNLrovlVgXQDbCk7VNCZwAH PcIV4qLQPvKDWlW3K5zCzwQLGEPzBcP6cuwpraAV6jBXObW245cTrpxdTqAYPvFUWpTt4BUSAjQCN9TE RypLQnIkpxPQPBQEdtZJ7FiJRiGED9kS6eHZyyXDKx DWDlH7tFCoSmqAgsUK31lPincrXjoVXoFCq+Bt3IJC7nc1KqKHu0wcRzMMjrJEVnYBjqAUHkZIMwRIBn AYP8XMN2QMTECsZzOTOmZGCtLMxqCJXuNNLrky1WZRSjFLZ3JqZ0YbEpIQLvYRZsEKzcEKPbQTrdZEeo XJTmXLFoNJ0VVrJoATFuGLCuLGzsXAOdMYAjxa9SLP HbTPAjSwUiISMpIDIeQSRgSOvvTMWfIQLrKpT8AZCrQMPvZY2CGpKfKMMcKJI5OYWmYMZaICHcwd9AFE WiEPAgUihrUVKaTVPnEZBjNRfzBVUsTZHnEew8GJGrQIFwCE5UAvMvNCPbPUT5PXKyGDFhRUYzcq1GXD GnLAYwQxk3KLCzHZMnVDUnKSqbQDWtVAQ7FAp2DYKs XJLyBH8ATgDbQWZuCUxjWMDqXAOcQMGsfz1TTAKuCDQiLYH1LpXfIXJiYZPmNXpmJGHoXRFlIzrjIFMk EKNdIY4NXiWsZXKeNaX2LkfmLURePSWpow7YXFMtOLYuIAvnRRKhZROzYYGmYGegMBBwBOEyLVU9OAOc FWBmWO0LFiUrBGOzLeXwGNquHSLcVAQywf2WTJZmLO RtYcY5QAVpXNXaKHWxHZldIRNjGCHuQDwuZMXjOBBeFE1YKdIsEDIbUvS9VpkuLXTqMOYynn2KNRQbGL CpJQXfVCYrXGHfVNThZCfgVANeVKV6ABV9FWNdHELvGY8ACoWlKTTeVhImIDqkYTVqASDyfo1DGICqNO AeIWd0ClFfSYYlPWXoXNvgYYKnGVL8EXA0DZWsONZa KK8YEfPdSEBrQdWpRVduLJWvCVTecp7FJCOwODJqTvn4OtPgZHCkESAiMLaaUERbUKF1WLOdZZYiRVJz RN0OEtOlWDLfYepmCujyXFHhTCLlpc8GWGYhRYHuPFTfMKXzTJMlPUTxBRsjJCBbJRY9BzY9ZOJjAAFz LX9JBcBpRSLdGgp0BJfvTUBhHESjph6JOOYmPMBjCA m4TzEtARRoWHRbWXbnTAZfSDI5IHP6RWZyVXUmGB3PDuPgCMCeKQN7HDXiSKNtWQGduy4QVMGaRJS0Cv Q0BQMvASYnONTqJMseAAOpCWgiAbGsENDxZDOvVR6YOrGzYQHcOMEcPlVhCOAjSFQymz9RQAQxQKC4MS D8KSJrYWOrYMLgUCrrYKCrKEs0CiRkCFXvVFTgJI5M HbIoVSxhARHGRgc8UTgeP6v5GMX8Mx6SF5Qiy1TcYCYkQIMBYUgpVL7cjlPlWPGfDr0NT8sORkv1JpHi AbZ4EFNjLHKhB6QyOOFgTJPeHPXeGFJaQ4FsMI9gYUUvFVMvQvMmTvXwWvVdRoJwVyPjOsSiJWV1BUF6 NjG4VrXeIW2HKx0LEkZ5HBI6sLVcBs6QDTN3UbCULaTfCY1YVAx= ID Date Data Source [id number] 10/08/2019 11:40:37 PM T [facility] Name Value Range Interpretation Code Description Data Karoline rce(s) Supporting Document(s) [facility] EFSSLy0yVwCQLzYcb6YuLdLiNSXkPZ9lxrz2G8B0oFJvN0DndWDkp7naG8UpB2FbJHJxIAWOOD1XcLQv jb2 [file] n/oYImqNB14wFCJ+uriah+cbsw/q6bb++Gx5c8lf15kO91z3rnA+133+3CPguqNbqs5YivB4HjbbtvP/4q g2cK4p0+ed/8nB19ZotIvGTsD80VC88UzunoA1UW7Y31k475l4h0/tMzHnb0sPcLtoFyHw+jo4ivrD1+ lQfqB+pV2qycJnV9CqgZYv/KE/UA0JheKPa/Rv19Hz kPpj3hy696m2S2Ka5Qj6es9lnqpV0U85xi1k19YO7Zg9v90S/3gbBHUl69piUrsW67G4H/5ft+dNYf/4 7dOP++5z/8Fc7b4ZUbf/CZblDoa6regPcTj6C64V9/R5zz+VlxI85f1tTqp1ylh9Tyf1/yOwnXe0M/b3 8ha38a4aG85/48YAWV069A+mrGJhUv8etlCExbBBJ4 U94xPYlgIPsX+qkpa25yxfN+o37f+lQj68orjZrOP+rP2rZ2aH4NavU/0TYWq1d15Z/3/Lynsey+/4YE/X3 ab6aKu6j1OX8ma3Xw/PIAdesb7joiQllWuLpJL7V2Cz4OfurpD5V9/K0Zo439cc7fIL0Y/XwN/JXeezC eTbu/+HnuhE1Ne5e3/lG/iqX3B5/Z3Vkr0LkAx/x+4 Hz4Pk6/UK392zvmM0kwcM+oh7+Bu52Kg4X/Ef+SvyJv3uqZ129Ev+Nh2lQc7lbiloroxfXxnnKg1vln1 qhccg4qep/kb8aE/5OtN/IX+Z4heoj7H4z6R6/V5af+aoGWuuyZJD90EYtYy4fKqB2LGx83w307tD0y3 +4uWxje6jAgA/WbmHo9AzT+Y+/mX6D7gIFd/B7+Bv5 K8/o8R7tl18JgrR/ZuOD2U9h/My07EjVAmgdccL8H/xF/jxNP97PwLS4Ngati832y0A6V+ox/oa+esu/ oyd3zKe0ni060CuiLb/XhjLqO+g49qfrE+zC9xbw7/P6rkmyQC+tTZxn/dqptdt+vj98b9X0YdryahPW Vn5fA2nNWoPZjm7X5fkcc/n0D7F4I6f49bORjLSnne W7BwJt3W1WFqw94xpS75tJP6v6I055Ao/+bsUi57Qu/l5T4lr+3I/atz1adcGQ+AmqMl4JB1Fe4Iulzf Gjj2NRrUG/dX5/5CCtAT44yvrf0LOtFj13UtteMLR/xoJdb/yOtG616b4/Gd1/xleaOKedPuXr71158y wkk5f6l1r960c89rNDis01t/0+u4vdR4v+ac7Xk00+ apg092/m/T/+5t+KAbpy5wzltz2OdXZTX32GEb2/c+cV9CoofN38HJx5i8A91wYDKk8S0X5JcmxOeBA+ TIk6yswOsGGw26+a39jy3xr73zN/lde6+RyL+VexfLrf+XXW7/df6/q9doPac7b2CicV631evBAYD6vV 1N/aC1apf7lze5yelxYAlrImTdT28dz3/cjGfT+yMX H+aeRfgSypHs1M+EbbU18ZcM0+ubkd36eF8Bl7xgcH+bY720vkRTW+KtpX5K+b2Do97J/BG3Pj0F497R l1+8aDxXyGU/Y7f+Bcnn0RGyJJkzV1px5vIpm+7so5J9mI6r3e7f77utaTgq/938wDIPB6d1G+5xOa3/ mE5nc+mjokY1rqepk8cL0N/PSyu3OmferG5Tru4ehx 3nzdWVmb+ZmzsPZty/DBImhBerN7c5bBQv0hCThUMO7YX7dX5zuRwmlyr9+Fmf6lDF+v37oJvvfHRAkp r9C0ypxZ0D1Al9aLoR/0Kkb6F6qX/dW6+Orwt51fVh7gurG/P4fSdI1Uzl36t1F+0x8Aol20bjjxi062 +bibI5eoNDmrc3gY9lOyF/wsV687m0++6nccdY3/+i p5O/oq+Sg11ydW/kN0XLgdKHzLWsr+94JwZi0Edci99tlzX/ud21avzlaR96hVw8w738a+sO2br/N283 Uq4ygog0V384523whYXfJjYqZhsl3uwul2g/k6b3c+gzdDvaHeUe+ov/krb3c+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/HQV3ns/d [file] SC8jA/llZCDBjAxkmJGBFDMykGNGBpLMyECWGRlIMy YYsESbUVZGXHJgtGHCRsQUf3HLnk5JCVALk0xwocnikBxU3GjWkmOD8VHkVMYDcIkbVHS0EpWCJiTwX5 thPX3uibJqAzNSeZaL3dOPZxkYjGBvhcObLZKJtVQutdnZIEXzMnO/KSHuSA8f0t/ji8lgR6RZpW2Jj2 pu4OEFEEgF3NVlgBvokPw8xKY+iTt/DvwTB/0Th1am EoqXBZDUvR1pPhcRdza9xhIpXo4Fs89XUzcFnYUraaTs7S4MBYLrVeUmzn8AQH5y2qkPs1lknrcQ4QEH mApyUVSjTk1RNr62lcf5BSxSfWcbzF/vbqc2fM09bUPStrQE1HoWqOgb3CvGuZwPTeEQYrgjVOOjGAAO USGTtrMLRXUjJXIiIE4YBide3cjibSZs6LntVzIegM CI1kMWZ2IjA9MPkTlGjtoORzFdGPMqZDcAaiKOmokUr1VZmKWEmHNBvJJ1Sbb9Xqkj6StSvCdE32DxKf fHv9T6ZLBpCWDzbyVdnsJHB90sBGbEOxjInZStV/L1Q5NtlfJx+fvV5PcanislF1qDV6J/VQYKuMqYiH hIDfri0QzY+F8LaIDaPXz/Zbdh5GS6C++pZCGMXAIy 3ajM18Mlgw02HMyAxCVLwqM927gZpMoVOjm9PPdj7g1fmJpRoU0vvOITHtY1N4mA8Nl01DLERr+MwffO WRojF+UUz4BxwtY6g8gWWMtJUMI+iVkgI++4O12pEMRbPtXklooVUTGeXsWXgZlHoAzNW0YNWOimkmUX 8S6gJPerdTrTVqsgz0POMR3b8BkTeqElK9tjkRf7vV 2mVh4CZOzfiGCoHN+Gn29IFAUWkCyq50uL8c0CSo3QQaSTiyTZiVWh+T/rM2elOsNEvZm62dNM2G+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 XRAY# F/C TYPEWHITE TREMAINE Brown [id number] F 54 10/08/19 10/08/19 [id number] XBE E/R DATE OF : 1965 M/R# [id number] #: [id number] RM TR-06 [facility] [id number] COMPLETE:10/08/19 0 7:37 EWW [id number] PHYSICIAN: YOSELIN WEIR Name Value Range Interpretation Code Description Data Karoline rce(s) Supporting Document(s) ID Date Data Source [id number] 10/08/2019 04:35:15 PM EDT [facility] Name Value Range Interpretation Code Description Data Karoline rce(s) Supporting Document(s) Consultation [facility] EGFLEd1hEcTGAtKo56/GRKebKYWeu6CfIKxuVAy5FBemOUIpB1BcQDR3dB0zJAI7PQzDDvAiDtGxRGZz lb FmLmmSSoLaNBGtHqsCOkRrTVhhUcmdxLUiVP2DdMC6JREaN70pZRSmQIPsV8IyXSQzBnM+Nu3RWUTxqL CwAY5AGezT3AzyH+NIEv5+5a1Gmm14a8WWtOf4lujWhGCFxvLP8TpOrP8CwMZECJVNO7a++vNrnKemqY hfTkV8gd1cwgB9s5muulbqGlY65zcbC2yELYv40+XP TRCH5v00783EW84fd6Xwh3YWZJJxawnKC2Yhwch9jHLH3GqfdVs7CgjCOe+C9x2lU6z+GE3e/PMnMfpV OKFmDpf7H6DKcwC7MT40gOVM0vsCydMcDrkHNI1gpqldwvELqlduOTGYojThaZsLboJh/PKmAOtBMndY pjURMphkOu8IcOQ3KXsWyKKZTFUtUgKnkrV+dRa6tH xXLsV+Xg2OtNKSiaOg0lJM1XV20YpmaV+BLb92ZjDNvamqob1rs+BPHabGeGNdRdcIkrawa0xob98/W9 feXtnQ1omLgAlYf4dQeFUfbH4ZbSBrj/iTYaBUTe4i+/gmGT/cTq/d8dZuf0EO5IOk5l7ntJ53v+Rq4O yBk4sIRDo5AS3RTzDcfYM0s4qeliWyCJoFq8R382Mv 0aRHUV7O0Q60Z96iICLMFeY2PyGoTge2AC1t4vOIJeJ6YS+FwpBkFr6gfmyC3OV0gJbS2lnMVGgh5B1M 1uLkaO9BiENZ77B3cIKkEpKXqb60e5Oo420bQY7F1ltv6M0Bn2xts4o698uptCbS7yW1vQDwb+2dwLMd 7pGIxXodcaaaFiXATf5f7poKd+PYBbLT+SV11rSeau ZIWw9e0A7fOeTtlFhk9zCImS66Qfbj+2HepeDC3P0obbIl6sRWG1LUTQHB5ZzRTGkzDAYA5CLwSdDkhw nm1A6PJmicdJf36DRtro+U2pK0EUxqr1Xo0gd925GoCjZ+RkLvVaLhcn/RoidV03E5eEFVuBwFP5ZiCS MZJSXU+xKsNYxMJgXWIYKfcTJayxHOJQufIdhjaRyh [file] A3TspfZIJ1D3Y+WO0dLCe+Yk1Ge8QzpxF0ouMwXYntBJSpFN9FEYUXU8GGTs== ID Date Data Source [id number] 10/08/2019 01:36:49 PM EDT [facility] CT HEAD WITHOUT CONTRAST [id number] RESU LTInterpreted by:Adolfo Martini MD10/08/2019 10:[address] HEAD WITHOUT CONTRAST [id number] CLINICAL INFORMATION: seizures,known mass TECHNIQUE: CT of [...] rce(s) Supporting Document(s) ID Date Data Source [id number] 10/08/2019 11:52:51 AM [facility] Value Range Interpretation Code Description Data Karoline rce(s) Supporting Document(s) pH of Venous blood 7.46 7.36-7.41 H [facility] Carbon dioxide [Partial pressure] in Venous blood 40 mmHg 40-45 [facility] Oxygen [Partial pressure] in Venous blood 33 mmHg [facility] Base excess standard in Venous blood by calculation 4 mmol/L [facility] Oxygen saturation Calculated from oxygen partial pressure in Venous blood 67 % 60-85 [facility] Lactate [Moles/volume] in Venous blood 1.6 mmol/L 0.5-2.2 [facility] Bicarbonate [Moles/volume] in Venous blood 29 mmol/L [facility] ID Date Data Source [id number] 10/08/2019 10:46:10 AM [facility] Name Value Range Interpretation Code Description Data Karoline rce(s) Supporting Document(s) Leukocytes [#/volume] in Blood by Automated count 12.1 10*3/uL 4-10 H [facility] Erythrocytes [#/volume] in Blood by Automated count 4.01 10*6/uL 4.1- 5.3 L [facility] Hemoglobin [Mass/volume] in Blood 12.4 g/dL 11.5-15.5 [facility] Hematocrit [Volume Fraction] of Blood by Automated count 36.3 % 3 6-45 [facility] Erythrocyte mean corpuscular volume [Entitic volume] by Auto mated count 90.6 fL 80-96 [facility] Erythrocyte mean corpuscular hemoglobin [Entitic mass] by Automated count 31.0 pg 27-33 [facility] Erythrocyte mean corpuscular hemoglobin concentration [Mass/volume] by Automated count 34.2 g/dL 32.0-[facility].0 [facility] distribution width [Ratio] by Automated count 15.5 % 11.5-14.5 H [facility] Platelets [#/volume] in Blood by Automated count 216 10*3/uL 150-400 [facility] Differential cell count method - Blood [facility] Neutrophils/100 leukocytes in Blood by Automated count 92 % [facility] Lymphocytes/100 leukocytes in Blood by Automated count 5 % [facility] Monocytes/100 leukocytes in Blood by Automated count 2 % [facility] Eosinophils/100 leukocytes in Blood by Automated count 0 % [facility] Basophils/100 leukocytes in Blood by Automated count 1 % [facility] Neutrophils [#/volume] in Blood by Automated count 11.27 10*3/uL 1.8- 7.0 H [facility] Lymphocytes [#/volume] in Blood by Automated count 0.59 10*3/uL 1.2-4 .0 L [facility] Monocytes [#/volume] in Blood by Automated count 0.19 10*3/uL 0-0.8 [facility] Eosinophils [#/volume] in Blood by Automated count 0.01 10*3/uL 0-0.5 [facility] Basophils [#/volume] in Blood by Automated count 0.06 10*3/uL 0-0.2 [facility] Nucleated erythrocytes/100 leukocytes [Ratio] in Blood by Automated count 0 /100{WBCs} 0-0 [facility] ID Date Data Source [id number] 10/08/2019 11:27:23 AM [facility] Name Value Range Interpretation Code Description Data Karoline rce(s) Supporting Document(s) Phenytoin [Mass/volume] in Serum or Plasma 8.2 ug/ml 10-20 [facility] ID Date Data Source [id number] 10/08/2019 11:31:53 AM [facility] Name Value Range Interpretation Code Description Data Karoline rce(s) Supporting Document(s) Albumin [Mass/volume] in Serum or Plasma by Bromocresol green (BCG) dye binding method 3.5 g/dL 3.5-5.2 [facility] Bilirubin.total [Mass/volume] in Serum or Plasma 0.8 mg/dL <1.2 [facility] Bilirubin.direct [Mass/volume] in Serum or Plasma 0.2 mg/dL <0.3 [facility] Alkaline phosphatase [Enzymatic activity/volume] in Serum or Plasma 66 U/L 35-104 [facility] Aspartate aminotransferase [Enzymatic activity/volume] in Serum or Plasma 26 U/L <32 [facility] Alanine aminotransferase [Enzymatic activity/volume] in Seru m or Plasma 21 U/L <33 [facility] Protein [Mass/volume] in Serum or Plasma 5.5 g/dL 6.4-8.3 [facility] ID Date Data Source [id number] 10/08/2019 11:31:53 AM [facility] Value Range Interpretation Code Description Data Karoline rce(s) Supporting Document(s) Bicarbonate [Moles/volume] in Serum 28 mmol/L 22-29 [facility] Chloride [Moles/volume] in Serum or Plasma 102 mmol/L 98-107 [facility] Creatinine [Mass/volume] in Serum or Plasma 0.66 mg/dL 0.50-0.90 [facility] Glucose [Mass/volume] in Serum or Plasma 111 mg/dL 70-140 [facility] Potassium [Moles/volume] in Serum or Plasma 2.8 mmol/L 3.4-5.1 [facility] Results called to and read back by ODALYS MONTERROSO C T [employer] ADULT [phone] [id number] Sodium [Moles/volume] in Serum or Plasma 142 mmol/L 136-145 [facility] Urea nitrogen [Mass/volume] in Serum or Plasma 8 mg/dL 6-20 [facility] Anion gap 3 in Serum or Plasma 12 mmol/L 8-15 [facility] Osmolality of Serum or Plasma by calculation 293 mosm/kg 275-300 [facility] Creatinine/Urea nitrogen [Mass Ratio] in Serum or Plasma 12 [facility] Calcium [Mass/volume] in Serum or Plasma 8.6 mg/dL 8.6-10.0 [facility] Glomerular filtration rate/1.73 sq M pre dicted among non-blacks [Volume Rate/Area] in Serum or Plasma by Creatinine-based formula (MDRD) >6 0 [facility] Glomerular filtration rate/1.73 sq M pre dicted among blacks [Volume Rate/Area] in Serum or Plasma by Creatinine-based formula (MDRD) >60 [facility] ID Date Data Source [id number] 10/08/2019 11:31:53 AM [facility] Name Value Range Interpretation Code Description Data Karoline rce(s) Supporting Document(s) Thyrotropin [Units/volume] in Serum or Plasma 2.220 u[IU]/mL 0.270-4. 200 [facility] ID Date Data Source [id number] 10/10/2019 01:06:31 PM [facility] Name Value Range Interpretation Code Description Data Karoline rce(s) Supporting Document(s) Zonisamide [Mass/volume] in Serum or Plasma 6.7 ug/mL 10.0-40.0 L [facility] (NOTE)This test was developed and its pe rformance characteristicsdetermined by [employer]. It has not been cleared or approvedby the Food and Drug Administration. Detection Limit = 1.0Performed At: [facility] [place], [place] [id number] Ruiz MD Ph:[id number] ID Date Data Source [id number] 10/08/2019 12:47:01 PM [facility] Service Cmnt XXX-Imp : NoneMicroorganism XXX Cult : 2019 nCoV Real-Time RT-PCR: NOT DETECTEDTest performed using the [employer] Xpert Xpress SARS-CoV-2 assay. This test is only for use under the Food and Drug Administration's Emergency Use Authorization. Additional information is available on the following FDA websites for health care providers and patients. https://www.fda.gov/media/917905/download , https://www.Dojo.gov/media/696534/download Name Value Range Interpretation Code Description Data Karoline rce(s) Supporting Document(s) ID Date Data Source [id number] 10/08/2019 10:05:00 AM EDT [facility] Service Cmnt XXX-Imp : NoneMicroorganism XXX Cult : 2019 nCoV Real-Time RT-PCR: NOT DETECTEDTest performed using the [employer] Xpert Xpress SARS-CoV-2 assay. This test is only for use under the Food and Drug Administration's Emergency Use Authorization. Additional information is available on the following FDA websites for health care providers and patients. https://www.fda.gov/media/775277/download , https://www.Dojo.gov/[employer]/657792/download Name Value Range Interpretation Code Description Data Karoline rce(s) Supporting Document(s) Microorganism identified in Unspecified specimen by [facility] This lab was ordered by [facility] and reported by [facility]. ID Date Data Source [id number] 10/08/2019 02:13:34 PM EDT [facility] Name Value Range Interpretation Code Description Data Karoline rce(s) Supporting Document(s) Levetiracetam [Mass/volume] in Serum or Plasma 12-46 L [facility] ID Date Data Source [id number] 10/08/2019 05:29:00 AM EDT [address] [address] ---------NAME--------- NUMBER SEX AGE ADMIT DISC. XRAY# F/C TYPE MACY Brown [id number] F [id number] 10/08/19 [id number] E/R DATE OF : 1965 M/R# [id number] #: [id number] LOCATION: TRANSCRIBED: 10/08/19 5:[address] HEAD W/O CONTRAST [id number] COMPLETED:10/08/19 5:05 RLB [id number] Reason(s): Altered Mental Status Syncope PHYSICIAN: YOSELIN [...] rce(s) Supporting Document(s) ID Date Data Source [id number] 10/13/2019 07:00:00 AM EDT [facility] [id number] Name Value Range Interpretation Code Description Data Karoline rce(s) Supporting Document(s) Bacteria identified in Blood by Culture [facility] NO GROWTH AFTER 5 DAYS ID Date Data Source [id number] 10/14/2019 12:39:00 PM EDT [facility] Name Value Range Interpretation Code Description Data Karoline rce(s) Supporting Document(s) CULTURE BLOOD [facility] _CULTURE BLOOD_ TEST PERFORM ED AT [address] [address] CLIA# [id number] SEE SCANNED REPORT{ PRELIM ID Date Data Source [id number] 10/14/2019 12:39:00 PM EDT [facility] Name Value Range Interpretation Code Description Data Karoline rce(s) Supporting Document(s) CULTURE BLOOD [facility] _CULTURE BLOOD_ TEST PERFORM ED AT [address] [address] CLIA# [id number] SEE SCANNED REPORT{ PRELIM ID Date Data Source [id number] 10/08/2019 04:16:00 AM EDT [facility] Name Value Range Interpretation Code Description Data Karoline rce(s) Supporting Document(s) COMPREHENSIVE METABOLIC PANEL [facility] COMPREHENSIVE METABOLIC PANEL Sodium [Moles/volume] in Serum or Plasma 141 mEq/L 134 - 153 [facility] Potassium [Moles/volume] in Serum or Plasma 2.7 mEq/L 3.6 - 5.0 [facility] CALL/ READ BACK DR [facility] BY: ROBB [facility] DATE/TIME 414 AM [facility] spital Chloride [Moles/volume] in Serum or Plasma 99 mEq/L 98 - 107 [facility] Carbon dioxide, total [Moles/volume] in Serum or Plasma 30 MEQ/L 22 - 30 [facility] Glucose [Mass/volume] in Serum or Plasma 88 MG/DL 65 - 110 [facility] BUN 11 MG/DL 7 - 21 [facility] al Creatinine [Mass/volume] in Serum or Plasma 0.7 MG/DL 0.7 - 1.5 [facility] BUN/CREAT 16 8 - 27 [facility] Protein [Mass/volume] in Serum or Plasma 5.4 G/DL 6.3 - 8.2 L [facility] Albumin [Mass/volume] in Serum or Plasma 3.8 G/DL 3.9 - 5.0 L [facility] Globulin [Mass/volume] in Serum by calculation 1.6 GM/DL 2.4 - 3.2 L [facility] A/G RATIO 2.4 0.8 - 2.0 H [facility] Calcium [Mass/volume] in Serum or Plasma 9.4 MG/DL 8.4 - 10.2 [facility] Bilirubin.total [Mass/volume] in Serum or Plasma <0.7 MG/DL 0.2 - 1.3 [facility] Alkaline phosphatase [Enzymatic activity/volume] in Serum or Plasma 68 U/L 38 - 126 [facility] Aspartate aminotransferase [Enzymatic activity/volume] in Serum or Plasma 17 U/L 5 - 40 [facility] Alanine aminotransferase [Enzymatic activity/volume] in Seru m or Plasma 19 U/L 7 - 56 [facility] Anion gap 3 in Serum or Plasma 12.0 mmol/L 8.0 - 16.0 [facility] 54 [facility] >60 mL/min [facility] AFR AMER GFR >60 mL/min [facility] Male GFR In terprentation 20-49 [...] >32 mL/min Normal ID Date Data Source [id number] 10/08/2019 04:16:00 AM EDT [facility] Name Value Range Interpretation Code Description Data Karoline rce(s) Supporting Document(s) Lipase [Enzymatic activity/volume] in Serum or Plasma 46 U/L 13 - 60 [facility] ID Date Data Source [id number] 10/08/2019 04:14:00 AM [facility] Name Value Range Interpretation Code Description Data Karoline rce(s) Supporting Document(s) TROPONIN T <0.01 NG/ML 0.00 - 0.10 [facility] ospital TROPONIN T0.1 ng/ml Recommended as the c linical threshold value forTroponin T. ID Date Data Source [id number] 10/08/2019 03:49:00 AM [facility] Name Value Range Interpretation Code Description Data Karoline rce(s) Supporting Document(s) Lactate [Moles/volume] in Serum or Plasma 4.1 MMOL/L 0.2 - 2.2 [facility] CALL/ READ BACK DR [facility] BY: LSA [facility] DATE/TIME [id number] 8227 AM [facility] ospital ID Date Data Source [id number] 10/08/2019 03:48:00 AM [facility] Name Value Range Interpretation Code Description Data Karoline rce(s) Supporting Document(s) CBC W/AUTOMATED DIFF [facility] COMPLETE BLOOD COUNT Leukocytes [#/volume] in Blood by Automated count 12.1 10^3/uL 4.2 - 11.0 H [facility] Erythrocytes [#/volume] in Blood by Automated count 3.91 10^6/uL 4. 20 - 5.40 L [facility] Hemoglobin [Mass/volume] in Blood 11.9 g/dL 12.0 - 16.0 L [facility] Hematocrit [Volume Fraction] of Blood by Automated count 35.6 % 3 7.0 - 47.0 L [facility] Erythrocyte mean corpuscular volume [Entitic volume] by Auto mated count 91.0 fL 81.0 - 101 [facility] Erythrocyte mean corpuscular hemoglobin [Entitic mass] by Automated count 30.4 pg 27.0 - 34.0 [facility] Erythrocyte mean corpuscular hemoglobin concentration [Mass/volume] by Automated count 33.4 g/dL 31.0 - 36.0 [facility] Erythrocyte distribution width [Ratio] by Automated count 13.9 % 11.5 - 14.5 [facility] Platelets [#/volume] in Blood by Automated count 196 10^3/uL 150 - 45 0 [facility] Platelet mean volume [Entitic volume] in Blood by Automated count 9.3 fL 7.4 - 10.4 [facility] Neutrophils/100 leukocytes in Blood by Automated count 73.0 % 37. 0 - 80.0 [facility] Lymphocytes/100 leukocytes in Blood by Manual count 18.5 % 25.0 - 40.0 L [facility] Monocytes/100 leukocytes in Blood by Automated count 5.3 % 3.0 - 8.0 [facility] Eosinophils/100 leukocytes in Blood by Automated count 0.2 % 0.0 - 7.0 [facility] Basophils/100 leukocytes in Blood by Automated count 0.4 % 0.0 - 2.5 [facility] %IG 2.6 % 0.0 - 0.0 [facility] %NRBC 0.0 % 0.0 - 0.0 [facility] al Neutrophils [#/volume] in Blood by Automated count 8.83 10^3/uL 2.00 - 6.90 H [facility] Lymphocytes [#/volume] in Blood by Automated count 2.23 10^3/uL 0.60 - 3.40 [facility] Monocytes [#/volume] in Blood by Automated count 0.64 10^3/uL 0.00 - 0.90 [facility] Eosinophils [#/volume] in Blood by Automated count 0.02 10^3/uL 0.00 - 0.70 [facility] Basophils [#/volume] in Blood by Automated count 0.05 10^3/uL 0.00 - 0.20 [facility] #IG 0.31 10^3/uL 0.00 - 0.10 H [facility] #NRBC 0.00 10^3/uL 0.00 - 0.00 [facility] MANUAL DIFF NOT INDICATED [facility] RBC MORPH NOT INDICATED [facility] spital Procedure Social History Code Duration Value Status Description Data Source(s ) Alcohol intake 01/29/2020 12:00:00 AM EST Ex-drinker (finding) comp leted Ex- drinker (finding) [facility] Tobacco use and exposure 01/29/2020 12:00:00 AM EST Never used co mpleted Never used [facility] Smoking 01/29/2020 12:00:00 AM EST Never smoker completed Never s wiker [facility] Alcohol intake 01/15/2020 12:00:00 AM EST Ex-drinker (finding) comp leted Ex- drinker (finding) [facility] Alcohol intake 12/19/2019 12:00:00 AM EDT Ex-drinker (finding) comp leted Ex- drinker (finding) [facility] Alcohol intake 12/03/2019 12:00:00 AM EDT Ex-drinker (finding) comp leted Ex- drinker (finding) [facility] Alcohol intake 11/27/2019 12:00:00 AM EDT Ex-drinker (finding) comp leted Ex- drinker (finding) [facility] Alcohol intake 10/15/2019 12:00:00 AM EDT Ex-drinker (finding) comp leted Ex- drinker (finding) [facility] Vital Signs ID Date Data Source [id number] 01/01/2020 03:43:38 PM [facility] Name Value Range Interpretation Code Description Data Source(s) WEIGHT RECORDED 220 lb 220 lb [facility] Body height Measured 65 in 65 in [facility] TRANSFER FROM [facility] ID Date Data Source [id number] 11/03/2019 10:19:16 PM [facility] Name Value Range Interpretation Code Description Data Source(s) Body height Measured 66 in 66 in [facility] ID Date Data Source [id number] 10/19/2019 12:08:48 PM [facility] Name Value Range Interpretation Code Description Data Source(s) WEIGHT RECORDED 222.1 lb 222.1 lb [facility] Body height Measured 68 in 68 in [facility] WEIGHT RECORDED 222.1 lb 222.1 lb [facility] Body height Measured 68 in 68 in [facility] Patient Treatment Plan of Care Planned Activity Planned Date Details Description Data Source (s) traZODone HCl 50 MG 04/15/2020 12:00:00 AM EST [facility] ([facility]) Gait/Transfer Belt 04/15/2020 12:00:00 AM EST [facility] ([facility]) Calcium Carbonate-Vitamin D 600-200 MG-UNIT 04/15/2020 12:00:00 AM EST [facility] ([facility]) Underpads Extra Large 04/15/2020 12:00:00 AM EST [facility]) Depend Silhouette Briefs L/XL 04/15/2020 12:00:00 AM EST [facility] ([facility]) Zonisamide 100 MG 04/15/2020 12:00:00 AM EST [facility] ([facility]) Omeprazole 20 MG 04/15/2020 12:00:00 AM EST [facility]) Keppra 500 MG 04/15/2020 12:00:00 AM EST [facility] ([facility]) Dexamethasone 4 MG 04/15/2020 12:00:00 AM EST [facility] ([facility]) Ergocalciferol [id number] UNT Oral Capsule 12/28/2019 12:00:00 AM [facility] POLYETHYLENE GLYCOL 3350 142 MG/ML Oral Solution 12/25/2019 09:00:0 0 AM [facility] 0.4 ML Enoxaparin sodium 100 MG/ML Prefilled Syringe 09:00:00 AM [facility] 0.4 ML Enoxaparin sodium 100 MG/ML Prefilled Syringe 10/20/2 020 12:00:00 AM [facility] Docusate Sodium 56.6 MG/ML Enema 12/24/2019 10:53:45 AM [facility] Calcium Citrate 950 MG Oral Tablet 12/24/2019 12:00:00 AM [facility] Cholecalciferol 1000 UNT Oral Tablet 12/24/2019 12:00:00 AM [facility] Cholecalciferol 1000 UNT Oral Tablet 12/24/2019 12:00:00 AM [facility] Calcium Citrate 950 MG Oral Tablet 12/24/2019 12:00:00 AM [facility] sodium chloride (preservative free) 0.9 % flush 10 mL 12/22/2019 04:40:00 PM [facility] ospital lidocaine (XYLOCAINE) 1 % injection 5 mL 12/22/2019 04:40:00 PM [facility] dextrose 50 % IV solution 25 mL 12/21/2019 01:33:36 PM [facility] Glucagon 1 MG Injection 12/21/2019 01:33:36 PM [facility] Glucose 0.417 MG/MG Oral Gel 12/21/2019 01:33:36 PM [facility] sennosides, SENIOR CARE 8.6 MG Oral Tablet 12/20/2019 01:00:07 AM [facility] traZODone HCl 50 MG 10/29/2019 01:00:00 AM [facility]) Temozolomide 20 MG 10/26/2019 01:00:00 AM [facility]) Temozolomide 140 MG 10/26/2019 01:00:00 AM [facility]) temozolomide 20 MG Oral Capsule 10/23/2019 12:00:00 AM [facility] temozolomide 140 MG Oral Capsule 10/23/2019 12:00:00 AM [facility] Zonisamide 100 MG 10/22/2019 01:00:00 AM [facility]) Bactrim DS 800-160 MG 10/22/2019 01:00:00 AM [facility]) Prochlorperazine Maleate 10 MG 10/22/2019 01:00:00 AM [facility]) Ondansetron HCl 8 MG 10/22/2019 01:00:00 AM [facility]) Omeprazole 40 MG 10/22/2019 01:00:00 AM [facility]) LevETIRAcetam 500 MG 10/22/2019 01:00:00 AM [facility]) Dexamethasone 4 MG 10/22/2019 01:00:00 AM [facility]) temozolomide 20 MG Oral Capsule 10/19/2019 12:00:00 AM [facility] Ondansetron 4 MG Oral Tablet 10/15/2019 12:00:00 AM [facility] Sulfamethoxazole 800 MG / Trimethoprim 160 MG Oral Tab let 10/13/2019 12:00:00 AM [facility] ospital Dexamethasone 4 MG Oral Tablet 10/12/2019 12:00:00 AM [facility] Levetiracetam 500 MG Oral Tablet 10/12/2019 12:00:00 AM [facility] Omeprazole 40 MG Delayed Release Oral Capsule 10/12/2019 12:00:00 A M [facility]
[2020-04-17] MEDS ORDERED: ISOVUE-370 76% 100ML VIAL As Ordered ONE (23:28)
[2020-04-18] VITALS (17 sets, daily range): BP systolic 75–123; BP diastolic 50–65; O2SAT 92–96
--- NOTE | 2020-04-18 00:11 | REPVR ---
PROCEDURE INFORMATION: Exam: CT Head Without Contrast Exam date and time: 04/17/2020 11:00 PM Age: 54 years old Clinical indication: Altered mental status/memory loss; Confusion or disorientation; Prior surgery; Surgery date: 6+ months; Surgery type: Brain; Additional info: Known brain CA TECHNIQUE: Imaging protocol: Computed tomography of the head without contrast. Radiation optimization: All CT scans at this facility use at least one of these dose optimization techniques: automated exposure control; mA and/or kV adjustment per patient size (includes targeted exams where dose is matched to clinical indication); or iterative reconstruction. COMPARISON: No relevant prior studies available. 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 No midline shift, fluid collection, or evidence of acute hemorrhage. Cerebral ventricles: No ventriculomegaly. Bones/joints: Left frontal parietal craniotomy. Paranasal sinuses: Visualized sinuses are unremarkable. No fluid levels. Mastoid air cells: Visualized mastoid air cells are well aerated. Soft tissues: Unremarkable. IMPRESSION: 1. No acute abnormality. 2. 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 Electronically signed by: Elvin Zhao On 04/18/2020 00:10:50 AM
--- NOTE | 2020-04-18 00:21 | REPVR ---
PROCEDURE INFORMATION: Exam: CT Chest With Contrast; Diagnostic Exam date and time: 04/17/2020 11:00 PM Age: 54 years old Clinical indication: Other: Confusion; Additional info: Known brain CA TECHNIQUE: Imaging protocol: Diagnostic computed tomography of the chest with contrast. Radiation optimization: All CT scans at this facility use at least one of these dose optimization techniques: automated exposure control; mA and/or kV adjustment per patient size (includes targeted exams where dose is matched to clinical indication); or iterative reconstruction. Contrast material: ISO; Contrast volume: 100 ml; Contrast route: INTRAVENOUS (IV); COMPARISON: CR Chest, 1 view 04/17/2020 9:54 PM FINDINGS: Lungs: Ground-glass opacities with interstitial thickening throughout both lungs. 8 mm noncalcified masses in the right upper and middle lobes. Possible additional nodules in the right lung, obscured by respiratory motion. Airways are clear. Pleural spaces: Unremarkable. No pneumothorax. No pleural effusion. Heart: Four-chamber cardiomegaly. No pericardial effusion. Pulmonary arteries: No central pulmonary embolism is seen. Evaluation of peripheral pulmonary arteries is limited due to excessive motion. Aorta: Unremarkable. No aortic aneurysm. Lymph nodes: Unremarkable. No enlarged lymph nodes. Bones/joints: Skeletal degenerative changes are noted. Soft tissues: Unremarkable. IMPRESSION: 1. No central pulmonary embolism is seen. Evaluation of peripheral pulmonary arteries is limited due to excessive motion. 2. Pulmonary edema. 3. Pulmonary nodules in the right lung. If not previously evaluated, follow-up is recommended. For patients at low risk (minimal or absent history of smoking and of other known risk factors), recommend CT Chest at 3-6 months, then consider CT Chest at 18-24 months. For patients at high risk (history of smoking or of other known risk factors), recommend CT Chest at 3-6 months, then CT Chest at 18-24 months. (Reference: Esequiel) REFERENCES: Esequiel Amaya, et al. Guidelines for Management of Incidental Pulmonary Nodules Detected on CT Images: From the Fleischner Society 2017. Radiology. 2017;284(1):228-243. Electronically signed by: Rakesh Mendez On 04/18/2020 00:21:13 AM
[2020-04-18] MEDS: COMBIVENT RESPIMAT 100-20MCG INHALER 4GM INH SCH ×3 (00:27→00:46)
--- NOTE | 2020-04-18 00:45 | REPVR ---
PROCEDURE INFORMATION: Exam: CT Abdomen And Pelvis With Contrast Exam date and time: 04/17/2020 11:00 PM Age: 54 years old Clinical indication: Other: Confusion; Additional info: Known brain CA TECHNIQUE: Imaging protocol: Computed tomography of the abdomen and pelvis with contrast. Radiation optimization: All CT scans at this facility use at least one of these dose optimization techniques: automated exposure control; mA and/or kV adjustment per patient size (includes targeted exams where dose is matched to clinical indication); or iterative reconstruction. Contrast material: ISO; Contrast volume: 100 ml; Contrast route: INTRAVENOUS (IV); COMPARISON: No relevant prior studies available. FINDINGS: Liver: The liver is low attenuation indicating hepatic steatosis. No liver masses are seen. Gallbladder and bile ducts: There has been prior cholecystectomy. No biliary duct dilation. Pancreas: Normal. No ductal dilation. Spleen: Normal. No splenomegaly. Adrenal glands: Normal. No mass. Kidneys and ureters: There is a 7 mm calculus in the left proximal ureter with mild left hydronephrosis. The distal left ureter is decompressed. Nonobstructing calyceal stones in both kidneys. No hydronephrosis on the right. No renal masses. Stomach and bowel: Unremarkable. No obstruction. No mucosal thickening. Appendix: No evidence of appendicitis. Intraperitoneal space: Unremarkable. No free air. No significant fluid collection. Vasculature: Unremarkable. No abdominal aortic aneurysm. Lymph nodes: Unremarkable. No enlarged lymph nodes. Urinary bladder: Urinary bladder is decompressed by a Noble catheter. Reproductive: There has been prior hysterectomy. Bones/joints: There are advanced degenerative changes in the spine and pelvis. Soft tissues: Unremarkable. IMPRESSION: 1. Obstructing 7 mm left proximal ureteral stone with mild hydronephrosis. 2. Hepatic steatosis. Electronically signed by: Rakesh Mendez On 04/18/2020 00:45:07 AM
[2020-04-18 01:56] LABS: FIBRINOGEN 844 MG/DL (221-452)
[2020-04-18] MEDS ORDERED: levETIRAcetam INJection 1,000 MG in D5W 100 ML IV SCH (02:00)
[2020-04-18] MEDS ORDERED: NS 1,000 ML IV SCH (02:00)
[2020-04-18 02:07] LABS: D-DIMER QUANT > 4000 ng/ml (<500)
--- OUTSIDE RECORDS SUMMARY | 2020-04-18 03:54 | CCD | Continuity of Care Document ---
Author Author Christine Locke [employer] Organization Unknown Address Unknown Phone Unavailable Care Team Providers Care Security System Technician Name Role Phone Norbert Wong Unavailable Unavailable Unavailable Norbert Wong Unavailable Unavailable Unavailable YazminKathleen Unavailable Sushila Zhao Unavailable Jody Chung Unavailable Unavailable Daniel Emily Unavailable Problems Name Dates Details Pressure ulcer of r ight buttock, stage 2 (L89.312) 15-Apr-2020 Status: Active Dependence on wheel chair (Z99.3) 15-Apr-2020 Status: Active History of falling (Z91.81) 15-Apr-2020 Status: Active Personal history of COVID-19 (Z86.16) 15-Apr-2020 Status: Active Body mass index [BM I] 33.0-33.9, adult (Z68.33) 15-Apr-2020 Status: Active FPC (current) use of systemic steroids (Z79.52) 15-Apr-2020 Status: Active Encounter for souza e or removal of nonsurgical wound dressing (Z48.00) 15-Apr-2020 Status: Active Unspecified urinary incontinence (R32) 15-Apr-2020 Status: Active Obesity, unspecifie d (E66.9) 15-Apr-2020 Status: Active Major depressive di sorder, single episode, unspecified (F32.9) 15-Apr-2020 Status: Active Anxiety disorder, u nspecified (F41.9) 15-Apr-2020 Status: Active Aphasia (R 47.01) 15-Apr-2020 Status: Active Facial weakness fol 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) 15-Apr-2020 Status: Active 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) 15-Apr-2020 Status: Active Other generalized e pilepsy and epileptic syndromes, not intractable, 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) 15-Apr-2020 Status: Active Malignant neoplasm of overlapping sites of brain (C71.8) 15-Apr-2020 Status: Active Displaced bimalleol ar fracture of right lower leg, subsequent encounter for closed fracture with routine healing (S82.841D) 15-Apr-2020 Status: Active Pressure ulcer of l eft buttock, stage 2 (L89.322) 15-Apr-2020 Status: Active Medications Name Dates Details Dexamethasone 4 MG Norbert Wong Active Keppra 500 MG Marvin Norbert* Start : 15-Apr-2020 Active Omeprazole 20 MG Marvin Norbert* Start : 15-Apr-2020 Active Zonisamide 100 MG Wong, Norbert* Start : 15-Apr-2020 Active Depend Silhouette Briefs L/XL Change as needed Norbert Wong* Start : 15-Apr-2020 Active Underpads Extra Large Use as needed Norbert Wong* Start : 15-Apr-2020 Active Calcium Carbonate-Vitamin D 600-200 MG-UNIT Wilbur Wongik* Start : 15-Apr-2020 Active Gait/Transfer Belt Wilbur Wongik* Start : 15-Apr-2020 Active traZODone HCl 50 MG Wong, Norbert* Start : 15-Apr-2020 Active traZODone HCl 50 MG Marvin, Norbert* Start : 29-Oct-2019 End : 13-Dec-2019 Inactive Temozolomide 140 MG Take with 20mg capsule for total of 160mg WongWilbur montoyaik* Start : 26-Oct-2019 End : 13-Dec-2019 Inactive Temozolomide 20 MG take with 140mg cap for total of 160mg Wong, Norbert* Start : 26-Oct-2019 End : 13-Dec-2019 Inactive Dexamethasone 4 MG Wilbur Wongik* Start : 22-Oct-2019 End : 13-Dec-2019 Inactive LevETIRAcetam 500 MG Take 2 tablets twice a day Norbert Wong* Start : 22-Oct-2019 End : 13-Dec-2019 Inactive Omeprazole 40 MG Wilbur Wongik* Start : 22-Oct-2019 End : 13-Dec-2019 Inactive [...] Type: Nutrition education Payers * Medicare - [facility] * [facility]
--- OUTSIDE RECORDS SUMMARY | 2020-04-18 03:56 | CCD ---
Author Author [facility] Organization [facility] Address Unknown Phone Unavailable Care Team Providers Care Web Content Specialist Name Role Phone Steve Almazan MD Unavailable [...] Unavailable Mary LARRY MD Unavailable Unavailable Mary LRARY MD Unavailable Unavailable LARRYMary CORBETT MD Unavailable [...] Unavailable VICKIE DE OLIVEIRA MD Unavailable Unavailable VICIKE DE OLIVEIRA MD Unavailable Unavailable VICKIE DE [...] is protected by Article 27-F of the [place] [employer] law. If you continue you may have access to information: Regarding HIV / AIDS; Provided by facilities licensed or operated by the [place] Office of Mental Health; or Provided by the [place] Office for People With Developmental Disabilities. If such information is present, then the following [place] mandated warning applies: This information has been [...] law may result in a fine or intermediate sentence or both. A general authorization for the release of medical or other information is NOT sufficient authorization for further disc losure. Allergies and Adverse Reactions Type Description Substance Reaction Status Data Source(s ) Latex Latex Latex active NETSMART ([facility]) BRANDNAME [facility]LI [facility] DRUG INGREDI LATEX Latex [facility] Encounters Encounter Providers Location Date Indications Data Source(s ) Outpatient Attender: JER LARRY MD 04/29/2020 12:00: 00 AM [facility] Outpatient Attender: VICKIE DE OLIVEIRA MD 04/28/2020 12:00:00 AM [facility] 04/15/2020 12:00:00 AM EST - 021 03:22:19 PM EST NETSMART ([facility]) Outpatient Attender: VICKIE DE OLIVEIRA MD 04/02/2020 12:00:00 AM [facility] Outpatient Attender: JER LARRY MD 03/25/2020 12:00: 00 AM [facility] Outpatient Attender: VICKIE DE OLIVEIRA MD 01/30/2020 12:00:00 AM [facility] Outpatient Attender: VICKIE DE OLIVEIRA MD 01/30/2020 12:00:00 AM [facility] Outpatient Referrer: JER LARRY MD 01/29/2020 12:00:00 AM EST Other fracture of right lower leg, subsequent encounter for closed fracture with routine healing [facility] Other fracture of right lower leg, subse quent encounter for closed fracture with routine healing Outpatient Attender: JER LARRY MD [id number] 01/29/2020 12:00:00 AM EST Unspecified fracture of shaft of unspecified tibia, subsequent encounter for closed fracture with routine healing [facility] Unspecified fracture of shaft of unspeci fied tibia, subsequent encounter for closed fracture with routine healing Outpatient Referrer: LEAH MOHR 01/29/2020 12:0 0:00 AM EST Malignant neoplasm of brain, unspecified [facility] Malignant neoplasm of brain, unspecified Outpatient Attender: LEAH MOHR 01/29/2020 12:00:00 A M [facility] Outpatient Referrer: JER LARRY MD 01/15/2020 12:00:00 AM EST Other fracture of right lower leg, subsequent encounter for closed fracture with routine healing [facility] Other fracture of right lower leg, subse quent encounter for closed fracture with routine healing Outpatient Attender: JER LARRY MD [id number] 01/15/2020 12:00:00 AM EST Unspecified fracture of shaft of unspecified tibia, subsequent encounter for closed fracture with routine healing [facility] Unspecified fracture of shaft of unspeci fied tibia, subsequent encounter for closed fracture with routine healing Outpatient Attender: JER LARRY MD 01/08/2020 12:00: 00 AM [facility] Outpatient Attender: VICKIE DE OLIVEIRA MD 01/07/2020 12:00:00 AM [facility] Outpatient Attender: LEAH MOHR 01/01/2020 12:00:00 A M [facility] Outpatient Referrer: LEAH MOHR 01/01/2020 12:00:00 A M [facility] Inpatient Attender: EPI Brown DAttender: Baltazar Garnetttender: BLANCHE DENGAdmitter: EPI BEST MDReferrer: Oseas Merida MDConsultant: JER LARRY MD [id number] 12/19/2019 12:00:00 AM EDT - 12/24/2019 03:30:00 PM EDT Unspecified fracture of shaft of unspeci fied tibia, initial encounter for closed fracture [facility] Unspecified fracture of shaft of unspeci fied tibia, initial encounter for closed fracture Patient discharged. Outpatient Attender: LEAH BRADSHAWEReferrer: SHIV KLEIN [id number] 12/04/2019 12:00:00 AM EDT - 12/04/2019 03:26:02 PM EDT [facility] Outpatient Attender: VICKIE DE OLIVEIRA MD [id number] 12/03/19 12:00:00 AM EDT - 12/03/2019 02:28:48 PM EDT [facility] Malignant neoplasm of brain, unspecified Outpatient Attender: Kate Carvajaljoselin [id number] 11/26 12:00:00 AM EDT - 11/28/2019 08:20:37 AM EDT Neoplasm of unspecified behavior of [facility] Neoplasm of unspecified behavior of brai n Outpatient Attender: SUDHIR CARBAJALMIKJairo . [id number] 11/15/2019 12:40:21 PM EDT [facility] Outpatient Attender: LEAH Mcbrideferrer: SHIV KLEIN [id number] 11/06/2019 12:00:00 AM EDT - 11/06/2019 02:56:14 PM EDT on [facility] on treat Outpatient Referrer: SHIV KLEIN 11/06/2019 12:00:00 AM EDT [facility] Outpatient Attender: LEAH Florianrer: SHIV KLEIN [id number] 10/30/2019 12:00:00 AM EDT - 10/30/2019 04:32:01 PM EDT on [facility] on treat Outpatient Attender: VICKIE DE OLIVEIRA MD 10/29/2019 12:00:00 AM EDT [facility] Outpatient Attender: VICKIE DE OLIVEIRA MD 10/29/2019 12:00:00 AM T [facility] Outpatient Attender: JOSE BATES [id number] 10/25/2019 09:31:44 AM EDT [facility] Outpatient Referrer: SHIV KLEIN 10/23/2019 12:00:[address] [facility] billing Outpatient Attender: JOSE BATES [id number] 0 10/22/2019 11:43:06 AM EDT [facility] 10/22/2019 01:00:00 AM EDT - 020 01:13:33 PM EDT [facility]) Outpatient Attender: VICKIE DE OLIVEIRA MD [id number] 10/15/19 12:00:00 AM EDT - 10/15/2019 11:16:56 AM EDT Neoplasm of unspecified behavior of [facility] Neoplasm of unspecified behavior of brai n Outpatient Attender: CHRIST SELF MD [id number] 10/12/19 20 12:00:00 AM EDT - 10/12/2019 12:11:56 PM EDT Malignant neoplasm of brain, unspecified [facility] Malignant neoplasm of brain, unspecified Outpatient 10/08/2019 04:52:[address] [facility] Emergency Attender: JORDAN CH MDConsultant: Radha May am PA-C 10/08/2019 03:07:00 AM EDT - 10/08/2019 07:15:00 AM EDT [facility] Patient discharged. Inpatient Attender: Ce Johnson r: SHIV HOLLYAAttender: JACKIE CHOW .Attender: Kev Sellers MDAdmitter: JACKIE CHOW .Referrer: JORDAN CH MD [id number] 10/08/2019 12:00:00 AM EDT - 10/12/2019 04:26:00 PM ED T Unspecified convulsions [facility] Unspecified convulsions Patient discharged. Medications Medication Brand Name Start Date Product Form Dose Route Admi nistrative Instructions Pharmacy Instructions Status Indications Reaction Description Data Source(s) traZODone HCl 50 MG traZODone HCl 04/15/2020 12:00:00 AM EST 50. 0 {mg} completed [facility] ([facility]) Omeprazole 20 MG Omeprazole 04/15/2020 12:00:00 AM EST 20.0 {mg} completed [facility]SMART ([facility]) Keppra 500 MG Keppra 04/15/2020 12:00:00 AM EST 500.0 {mg} completed [facility]SMART ([facility]) Dexamethasone 4 MG Dexamethasone 04/15/2020 12:00:00 AM EST 4.0 {mg} completed [facility]SMART ([facility]) Depend Silhouette Briefs L/XL Depend Silhouette Briefs L/XL 04/15/2020 12:00:00 AM EST completed NETSMAR T ([facility]) Underpads Extra Large Underpads Extra Large 04/15/2020 12:00:00 AM EST completed NETSMART ([facility]) Calcium Carbonate-Vitamin D 600-200 MG-UNIT Calcium Carbonat e-Vitamin D 04/15/2020 12:00:00 AM EST completed [facility]SMART ([facility]) Gait/Transfer Belt Gait/Transfer Belt 04/15/2020 12:00:00 AM EST completed [facility]SMART ([facility]) Zonisamide 100 MG Zonisamide 04/15/2020 12:00:00 AM EST 2.0 {tab let} completed [facility]SMART ([facility]) Ergocalciferol 42912 UNT Oral Capsule Vi tamin D (Ergocalciferol) 1.25 MG (28591 UT) Oral Capsule (ERGOCALCIFEROL) Vitamin D (Ergocalciferol) 1.25 MG (5000 0 UT) Oral Capsule (ERGOCALCIFEROL) 12/28/2019 12:00:00 AM EDT 15889 U Ora l active Take 1 capsule by mouth every 7 (seven) days for 8 doses [facility] POLYETHYLENE GLYCOL 3350 142 MG/ML Oral Solution [...] due to potential increased risk for aspiration.
[facility] Medication administered onsite 0.4 ML Enoxaparin sodium 100 MG/ML Prefi lled Syringe enoxaparin sodium (LOVENOX) injection 40 mg enoxaparin sodium (LOVENOX) injection 40 mg 12/25/2019 09:00:00 AM EDT 40 mg Subcutaneous active 40 mg, Subcutaneous, Daily Standard, First dose on Tue12/25/19 at 0900, For 30 days
For 1-2 weeks, till pt is mobile
[facility] Medication administered onsite 0.4 ML Enoxaparin sodium 100 MG/ML Prefi lled Syringe Enoxaparin Sodium 40 MG/0.4ML Subcutaneous Solution (LOVENOX) Enoxaparin Sodium 40 MG/0.4ML Subcutaneous Solution (LOVENOX) 12/25/2019 12:00:00 AM EDT 40 mg Subcutaneous active Inject 0.4 mLs into the s kin daily [facility] Docusate Sodium 56.6 MG/ML Enema docusate sodium (ENEM EEZ) enema 5 mL docusate sodium (ENEMEEZ) enema 5 mL 12/24/2019 10:53:45 AM EDT 5 mL Rectal active 5 mL, Rectal, Daily PRN, Con stipation, Starting 12/24/19 at 1053, For 30 days [facility] Medication administered onsite Calcium Citrate 950 MG Oral Tablet Calci um Citrate 950 MG Oral Tablet (CALCITRATE) Calcium Citrate 950 MG Oral Tablet (CALCITRATE) 2019 12:00:00 AM EDT 475 mg Oral aborted Take 0.5 tablets by mouth Two Times Daily [facility] Calcium Citrate 950 MG Oral Tablet Calci um Citrate 950 MG Oral Tablet (CALCITRATE) Calcium Citrate 950 MG Oral Tablet (CALCITRATE) 2019 12:00:00 AM EDT 475 mg Oral active Take 0.5 tablets by mouth Two Times Daily [facility] Cholecalciferol 1000 UNT Oral Tablet Vit golden D3 25 MCG (1000 UT) Oral Tablet (CHOLECALCIFEROL) Vitamin D3 25 MCG (1000 UT) Oral Tablet (CHOLECALCIFER OL) 12/24/2019 12:00:00 AM EDT 2000 U Oral active Take 2 tablets by mouth daily [facility] Cholecalciferol 1000 UNT Oral Tablet Vit golden D3 25 MCG (1000 UT) Oral Tablet (CHOLECALCIFEROL) Vitamin D3 25 MCG (1000 UT) Oral Tablet (CHOLECALCIFER OL) 12/24/2019 12:00:00 AM EDT 2000 U Oral aborted Take 2 tablets by mouth daily [facility] Acetaminophen 325 MG Oral Tablet acetaminophen (TYLENO L) tablet 650 mg acetaminophen (TYLENOL) tablet 650 mg 12/23/2019 08:11:36 AM EDT 65 0 mg Oral active 650 mg, Oral, E very 4 hours PRN, Mild Pain (Pain Scale Score 1- 3), Starting 12/23/19 at 0811, For 3 days
Maximum daily dose of acetaminophen is 3,000 mg from all sources in 24 hours.
[facility] Medication administered onsite Oxycodone Hydrochloride 5 MG [...] only) require Pain Service consultation and approval.
[facility] Medication administered onsite potassium phosphate infusion 6 mmol/100 mL (premix) 12/23/2019 07:00:00 AM EDT 6 mmol Intravenous completed 6 mmol, Intravenous, at 25 mL/hr, Once, 12/23/19 at 0700, For 1 dose
Slower infusion rates (e.g. over 4 hours) are recommended in patients with renal impairment and/or less severe hypophosphatemia. Product contains 8.8 mEq of potassium.
[facility] Medication administered onsite lidocaine (XYLOCAINE) 1 % injection 5 mL [id number] 12/22/2019 04:40:00 PM EDT 5 mL Subcutaneous active 5 m L, Subcutaneous, Once PRN, For MIDLINE Catheter insertion, Starting 12/22/19 at 1640, For 30 days [facility] Medication administered onsite sodium chloride (preservative free) [...] Extended Dwell/Midline Peripheral Catheter.
[Order 3 End] [facility] Medication administered onsite potassium chloride (KLOR-CON) packet 40 mEq [id number] 12/22/2019 09:00:00 AM EDT 40 meq Oral completed 40 mEq , Oral, 2 Times Daily, First dose on Tue12/22/19 at 0900, For 2 doses
Mix in 4 ounces of water or juice
[facility] Medication administered onsite insulin lispro (HumaLOG) injection LOW DOSE EATING INS ULIN patients 1-8 Units [id number] 12/21/2019 06:00:00 PM EDT U Subcutaneous active 1-8 Units, Subcutaneous, Three Times Daily-With Meals, First dose on Tue12/21/19 at 1800, For 30 days
Nursing MUST open the 'SQ Insulin Dosing Charts' Sidebar Report, or, the Patient Summary or Summary Report within the ED.
[facility] Medication administered onsite dextrose 50 % IV solution 25 mL [id number] 12/21/2019 01:33:36 PM E DT 25 mL Intravenous active 25 mL, Intrav enous, PRN, Other, blood glucose <55, Starting Tue12/21/19 at 1333, For 30 days
Not for midline administration.
[facility] Medication administered onsite Glucagon 1 MG Injection glucagon (human recombinant) ( GLUCAGEN) injection 1 mg glucagon (human recombinant) (GLUCAGEN) injection 1 mg 12/21/2019 01:33:36 PM EDT 1 mg Intramuscular active 1 mg, Intramuscular, PRN, for glucose <55 without IV access, Starting Tue12/21/19 at 1333, For 30 days [facility] Medication administered onsite Glucose 0.417 MG/MG Oral Gel glucose (GLUTOSE) 40 % or al gel 15 g glucose (GLUTOSE) 40 % oral gel 15 g 12/21/2019 01:33:36 PM EDT 15 g Oral active 15 g, Oral, PRN, Low blood s ugar, for gluose 55-69 mg/dl and able to take PO, Starting Tue12/21/19 at 1333, For 30 days [facility] Medication administered onsite Calcium Citrate 950 MG Oral Tablet calcium citrate (CA LCITRATE) tablet 475 mg calcium citrate (CALCITRATE) tablet 475 mg 12/21/2019 09:00:00 AM EDT 475 mg Oral active 475 mg, Oral, 2 Times Daily, First dose on Tue12/21/19 at 0900, For 30 days [facility] Medication administered onsite Ascorbic Acid 500 MG Oral Tablet vitamin C (ASCORBIC A DOMINICK) tablet 500 mg vitamin C (ASCORBIC ACID) tablet 500 mg 12/21/2019 09:00:00 AM EDT 500 mg O ral active 500 mg, Oral, Daily Standard, First dose on Tue12/21/19 at 0900, For 30 days [facility] Medication administered onsite 0.3 ML Enoxaparin sodium [...] hours after epidural catheter has been removed.
[facility] Medication administered onsite Ergocalciferol 25635 UNT Oral Capsule vi tamin D (ERGOCALCIFEROL) capsule 50,000 Units vitamin D (ERGOCALCIFEROL) capsule 50,000 Units 2019 09:00:00 AM EDT 92385 U Oral active 50,000 U nits, Oral, Every 7 days, First dose on Tue12/21/19 at 0900, For 30 days [facility] Medication administered onsite Cholecalciferol 1000 UNT Oral Tablet vit golden D3 (CHOLECALCIFEROL) tablet 2,000 Units vitamin D3 (CHOLECALCIFEROL) tablet 2,000 Units 2019 09:00:00 AM EDT 2000 U Oral active 2,000 Un its, Oral, Daily Standard, First dose on Tue12/21/19 at 0900, For 30 days
25 mcg vitamin D3 = 1,000 international units vitamin D3.
[facility] Medication administered onsite magnesium sulfate in dextrose 5 % infusion (premix) 1 g [id number] 12/21/2019 07:15:00 AM EDT 1 g Intravenous completed 1 g, Intravenous, Administer over 60 Minutes, Once, Tue12/21/19 at 0715, For 1 dose [facility] Medication administered onsite Cefazolin 2000 MG Injection ceFAZolin (ANCEF) IVPB 2 g in dextrose (premix) ceFAZolin (ANCEF) IVPB 2 g in dextrose (premix) 12/21/2019 01:00:00 AM EDT 2 g Intravenous completed 2 g, Int ravenous, Administer over 30 Minutes, Every 8 hours, First dose on Tue12/21/19 at 0100, For 16 hours
3 gram for patients weighing >/= to 120 kg
[facility] Medication administered onsite fentaNYL (SUBLIMAZE) (PF) injection 25 mcg [id number] 12/20/2019 06:37:26 PM EDT 25 ug Intravenous aborted 25 m cg, Intravenous, Every 5 min PRN, Severe Pain (Pain Scale Score 7-10), Starting Lynsey 12/20/19 at 1837, For 10 doses, [facility] Medication administered onsite HYDROmorphone (DILAUDID) injection 0.52 mg [id number] 12/20/2019 06:37:26 PM EDT 0.5 mg Intravenous completed 0. 52 mg (rounded from 0.5 mg), Intravenous, Every 5 min PRN, Severe Pain (Pain Scale Score > 6), Starting Lynsey 12/20/19 at 1837, For 4 doses, Recovery [facility] Medication administered onsite pantoprazole 40 MG Delayed Release Oral Tablet pantoprazole (PROTONIX) EC tablet 40 mg pantoprazole (PROTONIX) EC tablet 40 mg 12/20/2019 09:00:00 AM E DT 40 mg Oral active 40 mg, Ora l, Daily Standard, First dose on Lynsey 12/20/19 at 0900, For 30 days
Do not crush or chew
[facility] Medication administered onsite Levetiracetam 500 MG Oral Tablet levETIRAcetam (KEPPRA ) tablet 1,000 mg levETIRAcetam (KEPPRA) tablet 1,000 mg 12/20/2019 09:00:00 AM EDT 1000 mg Oral active 1,000 mg, Oral , 2 Times Daily, First dose on Lynsey 12/20/19 at 0900, For 30 days [facility] Medication administered onsite zonisamide 100 MG Oral Capsule zonisamide (ZONEGRAN) c apsule 200 mg zonisamide (ZONEGRAN) capsule 200 mg 12/20/2019 09:00:00 AM EDT 200 mg Oral active 200 mg, Oral, 2 Times Daily, First dose on Lynsey 0 at 0900, For 30 days [facility] Medication administered onsite Dexamethasone 4 MG Oral Tablet dexamethasone (DECADRON ) tablet 4 mg dexamethasone (DECADRON) tablet 4 mg 12/20/2019 09:00:00 AM EDT 4 mg Oral active 4 mg, Oral, 2 Times Daily With Meals, First dose on Lynsey 12/20/19 at 0900, For 30 days
Take with food.
[facility] Medication administered onsite potassium chloride (K-DUR) dissolvable tablet 40 mEq [id number] 12/20/2019 07:30:00 AM EDT 40 meq Oral completed 40 mEq, Oral, Once, Lynsey 12/20/19 at 0730, For 1 dose
May be dissolved in water for patients with a G-Tube or unable to swallow. If concern for clogging G-Tube, may contact Pharmacy to switch formulation to a powder packet.
[facility] Medication administered onsite Oxycodone Hydrochloride 5 MG [...] only) require Pain Service consultation and approval.
[facility] Medication administered onsite potassium chloride (K-DUR) dissolvable tablet 40 mEq [id number] 12/20/2019 01:15:00 AM EDT 40 meq Oral completed 40 mEq, Oral, Once, Lynsey 12/20/19 at 0115, For 1 dose
May be dissolved in water for patients with a G-Tube or unable to swallow. If concern for clogging G-Tube, may contact Pharmacy to switch formulation to a powder packet.
[facility] Medication administered onsite Trazodone Hydrochloride 50 MG Oral Tablet trazodone (D ESYREL) tablet 50 mg trazodone (DESYREL) tablet 50 mg 12/20/2019 01:00:37 AM EDT 50 mg Oral active 50 mg, Oral, Nightly PRN, Sleep, Starting [facility] 12/20/19 at 0100, For 30 days [facility] Medication administered onsite Acetaminophen 325 MG Oral Tablet acetaminophen (TYLENO L) tablet 650 mg acetaminophen (TYLENOL) tablet 650 mg 12/20/2019 01:00:07 AM EDT 65 0 mg Oral completed 650 mg, Oral, E very 4 hours PRN, Mild Pain (Pain Scale Score 1-3), Starting [facility] 12/20/19 at 0100, For 3 days
Maximum daily dose of acetaminophen is 3,000 mg from all sources in 24 hours.
[facility] Medication administered onsite sennosides, [facility] 8.6 MG Oral Tablet senna tablet 2 tablet sen na tablet 2 tablet 12/20/2019 01:00:07 AM EDT 2 {tbl} Oral active 2 tablet, Oral, Nightly PRN, Constipation, Starting [facility] 12/20/19 at 0100, For 30 days [facility] Medication administered onsite dexamethasone (DECADRON) injection 4 mg [id number] 12/19/19 10:15:00 PM EDT 4 mg Intravenous completed 4 mg, Intr avenous, Once, 12/19/19 at 2215, For 1 dose [facility] Medication administered onsite Acetaminophen 325 MG Oral Tablet acetaminophen (TYLENO L) tablet 650 mg acetaminophen (TYLENOL) tablet 650 mg 11/27/2019 12:45:00 PM EDT 65 0 mg Oral completed 650 mg, Oral, O nce, 11/27/19 at 1245, For 1 dose
Give once prior to transfusion.
[facility] Medication administered onsite Diphenhydramine Hydrochloride 25 MG Oral Capsule diphenhydrAMINE (BENADRYL) capsule 25 mg diphenhydrAMINE (BENADRYL) capsule 25 mg 11/27/2019 12 :45:00 PM EDT 25 mg Oral completed 25 mg, Oral, Once, 11/27/19 at 1245, For 1 dose
Give once prior to transfusion.
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 with one 20 mg capsule for a total dose of 160 mg daily by [facility] Anaplastic astrocytoma temozolomide 140 MG Oral Capsule Temozolomide 140 MG O ral Capsule (Temodar) Temozolomide 140 MG Oral Capsule (Temodar) 10/23/2019 12:00:00 AM EDT 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 with one 20 mg capsule for a total dose of 160 mg daily by [facility] Anaplastic astrocytoma Zonisamide 100 MG Zonisamide 10/22/2019 01:00:00 AM EDT completed NETSMART ([facility] ) Bactrim DS 800-160 MG Bactrim DS 10/22/2019 01:00:00 AM EDT completed NETSMART ([facility]) Prochlorperazine Maleate 10 MG Prochlorperazine Maleate 10/05 01:00:00 AM EDT completed NETSMAR T ([facility]) Omeprazole 40 MG Omeprazole 10/22/2019 01:00:00 AM EDT completed NETSMART ([facility] ) Ondansetron HCl 8 MG Ondansetron HCl 10/22/2019 01:00:00 AM EDT completed [facility]SMART ([facility]) Dexamethasone 4 MG Dexamethasone 10/22/2019 01:00:00 AM EDT completed NETSMART ([facility]) LevETIRAcetam 500 MG LevETIRAcetam 10/22/2019 01:00:00 AM EDT completed NETSMART ([facility]) temozolomide 20 MG Oral Capsule Temozolomide 20 MG Ora l Capsule (Temodar) Temozolomide 20 MG Oral Capsule (Temodar) 10/19/2019 12:00:00 AM EDT 160 mg Oral aborted Take 8 capsule s by mouth daily Start taking the night before radiation begins [facility] Ondansetron 4 MG Oral Tablet Ondansetron HCl 4 MG Oral Tablet (Zofran) Ondansetron HCl 4 MG Oral Tablet (Zofran) 10/15/2019 12:00:00 AM EDT 4 mg Oral completed Take 1 tablet by mouth every 8 (eight) hours as needed for Nausea [facility] Sulfamethoxazole 800 MG / Trimethoprim 1 60 MG Oral Tablet Sulfamethoxazole- Trimethoprim 800-160 MG Oral Tablet (BACTRIM DS) Sulfamethoxazole-Trimethoprim 800-160 MG Oral Tablet (BACTRIM DS) 10/13/2019 12:00:00 AM EDT 1 {tbl } Oral completed Take 1 tablet by mouth daily for 10 days [facility] Omeprazole 40 MG Delayed Release Oral Ca psule Omeprazole 40 MG Oral Capsule Delayed Release (PRILOSEC) Omeprazole 40 MG Oral Capsule Delayed Re lease (PRILOSEC) 10/12/2019 12:00:00 AM EDT 40 mg Oral aborted Take 1 capsule by mouth daily [facility] Levetiracetam 500 MG Oral Tablet levETIRAcetam 500 MG Oral Tablet (KEPPRA) levETIRAcetam 500 MG Oral Tablet (KEPPRA) 10/12/2019 12:00:00 AM EDT 1000 mg Oral active Take 2 tablets by mo [facility] Two Times Daily [facility] Dexamethasone 4 MG Oral Tablet Dexamethasone 4 MG Oral Tablet (DECADRON) Dexamethasone 4 MG Oral Tablet (DECADRON) 10/12/2019 12:00:00 AM EDT 4 mg Oral active Take 1 tablet by luci Two times daily with meals [facility] Insurance Providers Payer name Policy type / Coverage type Policy ID Covered libertarian ID Covered libertarian's relationship to [employer] Policy [employer] Plan Information [facility] [id number] SP [id number] MEDICAID M [id number] Self [id number] MEDICARE A [id number] Self [id number] MEDICAID M [id number] Self [id number] COMMERCIAL GENERIC U [id number] Self [id number] MEDICAID OOS M [id number] Self [id number] MEDICAID -PHYSICIAN [id number] MEDICARE PART A -O/P [id number] 18 [id number] MEDICAID - O/P EMERGENCY ROOM [id number] COUNTS INCLUDE 234 BEDS AT THE [facility] COMMUNITY PLAN MCDO [id number] SP [id number] SELF PAY UNAVAILABLE UNAVAILA BLE MEDICAID -CLINIC [id number] [facility] [id number] 18 [id number] [employer] XIX HMO-O/P [id number] MEDICAID [id number] SP [id number] Problems, Conditions, and Diagnoses Code Display Name Description Problem Type Effective Dates Data Source(s) L89.322 Pressure ulcer of left buttock, stage 2 Pressure ulcer of left buttock, stage 2 Problem 04/15/2020 12:00:00 AM EST NETSMART ([facility]) S82.841D Displaced bimalleolar fractu re of right lower leg, subsequent encounter for closed fracture with routine healing Displaced bimalleolar fracture of right lower leg, subsequent encounter for closed fracture with routine healing Problem 04/15/2020 12:00:00 AM EST NETSMART ([facility]) C71.8 Malignant neoplasm of overlapping sites of brain Malignant neoplasm of overlapping sites of brain Problem 04/15/2020 12:00:00 AM EST NETSMA RT ([facility]) 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, not intractable, 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, not intractable, without status epilepticus Problem 04/15/2020 12:00 :00 AM EST NETSMART ([facility]) 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 cer ebral infarction affecting right dominant side Problem 04/15/2020 12:00:00 AM EST NETSMART ([facility]) 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 Problem 04/15/2020 12:00:00 AM EST NETSMART ([facility]) R47.01 Aphasia Aphasia Problem 04/15/2020 12:00:00 AM ES T NETSMART ([facility]) F41.9 Anxiety disorder, unspecified Anxiety disorder, unspec ified Problem 04/15/2020 12:00:00 AM EST NETSMART ([facility] ) F32.9 Major depressive disorder, single episod e, unspecified Major depressive disorder, single episode, unspecified Problem 04/15/2020 12:00:00 AM EST NETSMART ([facility]) E66.9 Obesity, unspecified Obesity, unspecified Problem 04/15/2020 12:00:00 AM EST NETSMART ([facility] ) R32 Unspecified urinary incontinence Unspecified urinary i ncontinence Problem 04/15/2020 12:00:00 AM EST NETSMART ([facility] ) Z48.00 Encounter for change or removal of nonsu rgical wound dressing Encounter for change or removal of nonsurgical wound dressing Problem 12:00:00 AM EST NETSMART ([facility] ) Z79.52 MCFP (current) use of systemic ster oids 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 (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) use of systemic 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 Problem 04/15/2020 12:00:00 AM EST NETSMART ([facility]) Z68.33 Body mass index [BMI] 33.0-33.9, adult B thao mass index [BMI] 33.0-33.9, adult Problem 04/15/2020 12:00:00 AM EST NETSMART ([facility]) Z86.16 Personal history of COVID-19 Personal history of COVID -19 Problem 04/15/2020 12:00:00 AM EST NETSMART ([facility] ) Z91.81 History of falling History of falling Problem 12:00:00 AM EST NETSMART ([facility]) 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 on wheelchair Prob deyvi 04/15/2020 12:00:00 AM EST NETSMART ([facility] ) L89.312 Pressure ulcer of right buttock, stage 2 Pressure ulcer of right buttock, stage 2 Problem 04/15/2020 12:00:00 AM EST NETSMART ([facility]) C71.9 Malignant neoplasm of brain, unspecified Malignant neoplasm of brain, unspecified Problem 04/13/2020 12:00:00 AM EST NETSMART ([facility]) 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, not intractable, 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, not intractable, without status epilepticus Problem 10/21/2019 01:00 :00 AM EDT NETSMART ([facility]) 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 cer ebral infarction affecting right dominant side Problem 10/21/2019 01:00:00 AM EDT NET SMART ([facility]) 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 Problem 10/21/2019 01:00:00 AM EDT NETSMART ([facility]) R47.01 Aphasia Aphasia Problem 10/21/2019 01:00:00 AM ED T NETSMART ([facility]) F41.9 Anxiety disorder, unspecified Anxiety disorder, unspec ified Problem 10/21/2019 01:00:00 AM EDT NETSMART ([facility] ) F32.9 Major depressive disorder, single episod e, unspecified Major depressive disorder, single episode, unspecified Problem 10/21/2019 01:00:00 AM EDT NETSMART ([facility]) E66.9 Obesity, unspecified Obesity, unspecified Problem 10/21/2019 01:00:00 AM EDT NETSMART ([facility] ) Z91.81 History of falling History of falling Problem 0 01:00:00 AM EDT NETSMART ([facility]) Z68.33 Body mass index (BMI) 33.0-33.9, adult B thao mass index (BMI) 33.0-33.9, adult Problem 10/21/2019 01:00:00 AM EDT NETSMART ([facility]) C71.8 Malignant neoplasm of overlapping sites of brain Malignant neoplasm of overlapping sites of brain Problem 10/21/2019 01:00:00 AM EDT NETSMA RT ([facility]) C71.9 Malignant neoplasm of brain, unspecified Malignant neoplasm of brain, unspecified Problem 10/11/2019 01:00:00 AM EDT NETSMART ([facility]) S82.891D Other fracture of right lowe r leg, subsequent encounter for closed fracture with routine healing Other fracture of right lower leg, subse quent encounter for closed fracture with routine healing Diagnosis 10:25:55 AM [facility] S82.409D Unspecified fracture of shaf t of unspecified fibula, subsequent encounter for closed fracture with routine healing Unspecified fracture of shaft of unspecified fibula, subsequent encounter for closed fracture with routine healing Diagnosis 12/19/2019 10:58:44 PM EDT [facility] S82.209D Unspecified fracture of shaf t of unspecified tibia, subsequent encounter for closed fracture with routine healing Unspecified fracture of shaft of unspecified tibia, subsequent encounter for closed fracture with routine healing Diagnosis 12/19/2019 10:58:44 PM EDT [facility] S82.409A Unspecified fracture of shaf t of unspecified fibula, initial encounter for closed fracture Unspecified fracture of shaft of unspeci fied fibula, initial encounter for closed fracture Diagnosis 12/19/2019 10:58:44 PM EDT [facility] S82.209A Unspecified fracture of shaf t of unspecified tibia, initial encounter for closed fracture Unspecified fracture of shaft of unspeci fied tibia, initial encounter for closed fracture Diagnosis 12/19/2019 10:58:44 PM EDT [facility] vasogenic edema, LE weakness, brain mass vasogenic edema, LE weakness, brain mass Diagnosis 12/19/2019 04:27:00 PM EDT [facility] follow up follow up Diagnosis 12/04/2019 09:26:26 AM ED [facility] D69.6 Thrombocytopenia, unspecified Thrombocytopenia, unspec ified Diagnosis 11/27/2019 12:10:29 PM EDT [facility] on treat on treat Diagnosis 11/06/2019 01:59:56 PM ED [facility] billing billing Diagnosis 10/24/2019 08:04:04 AM ED [facility] 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 G93.89 Other specified disorders of brain Other specifi ed disorders of brain Diagnosis 10/08/2019 08:55:14 AM [facility] R56.9 Unspecified convulsions Unspecified convulsions Diagno sis 10/08/2019 08:55:14 AM [facility] seizures seizures Diagnosis 10/08/2019 08:55:14 AM ED [facility] [id number] Latex allergy status Latex allergy status Diagnosis 10/08/2019 03:07:00 AM EDT [facility] E876 Hypokalemia Hypokalemia Diagnosis 10/08/2019 03:07:00 AM [facility] G9389 Other specified disorders of brain Other specifi ed disorders of brain Diagnosis 10/08/2019 03:07:00 AM EDT [facility] R569 Unspecified convulsions Unspecified convulsions Diagno sis 10/08/2019 03:07:00 AM [facility] Surgeries/Procedures Procedure Description Date Indications Data Source(s) POCT GLUCOSE, DOCKED POCT GLUCOSE, DOCKED Routine 12/24/2019 1:09 PM EDT 12/24/2019 01:09:00 PM T [facility] RESPIRATORY PATHOGEN PANEL RESPIRATORY PATHOGEN PANEL Routine 12/24/2019 12:49 PM EDT 12/24/2019 12:49:00 PM EDT [facility] COVID-19 PCR COVID-19 PCR STAT 12/24/2019 11:57 AM EDT 12/24/2019 11:57:00 AM [facility] POCT GLUCOSE, DOCKED POCT GLUCOSE, DOCKED Routine 12/24/2019 7:36 AM EDT 12/24/2019 07:36:00 AM [facility] BLOOD COUNT COMPLETE AUTOMATED CBC Routine 12/24/2019 3:22 A M EDT 12/24/2019 03:22:00 AM [facility] GLUCOSE QUANTITATIVE BLOOD XCPT REAGENT STRIP POCT GLUCOSE, DOC KED Routine 12/23/2019 11:25 PM EDT 12/23/2019 11:25:00 PM [facility] GLUCOSE QUANTITATIVE BLOOD XCPT REAGENT STRIP POCT GLUCOSE, DOC KED Routine 12/23/2019 4:54 PM EDT 12/23/2019 04:54:00 PM [facility] GLUCOSE QUANTITATIVE BLOOD XCPT REAGENT STRIP POCT GLUCOSE, DOC KED Routine 12/23/2019 7:46 AM EDT 12/23/2019 07:46:00 AM [facility] BLOOD COUNT COMPLETE AUTOMATED CBC Routine 12/23/2019 3:24 A M EDT 12/23/2019 03:24:00 AM [facility] PHOSPHORUS INORGANIC PHOSPHORUS LEVEL Routine 12/23/2019 3:24 AM E DT 12/23/2019 03:24:00 AM [facility] MAGNESIUM MAGNESIUM LEVEL Routine 12/23/2019 3:24 AM EDT 12/23/2019 03:24:00 AM [facility] BASIC METABOLIC PANEL CALCIUM TOTAL BASIC METABOLIC PANEL Routi ne 12/23/2019 3:24 AM EDT 12/23[facility]2019 [facility] XCPT REAGENT STRIP POCT GLUCOSE, DOC KED Routine 12/23/2019 12:49 AM EDT 12/23/2019 12:49:00 AM [facility] GLUCOSE QUANTITATIVE BLOOD XCPT REAGENT STRIP POCT GLUCOSE, DOC KED Routine 12/22/2019 5:24 PM EDT 12/22/2019 05:24:00 PM [facility] GLUCOSE QUANTITATIVE BLOOD XCPT REAGENT STRIP POCT GLUCOSE, DOC KED Routine 12/22/2019 8:18 AM EDT 12/22/2019 08:18:00 AM [facility] BLOOD COUNT COMPLETE AUTOMATED CBC Routine 12/22/2019 3:50 A M EDT 12/22/2019 03:50:00 AM [facility] PHOSPHORUS INORGANIC PHOSPHORUS LEVEL Routine 12/22/2019 3:50 AM E DT 12/22/2019 03:50:00 AM [facility] MAGNESIUM MAGNESIUM LEVEL Routine 12/22/2019 3:50 AM EDT 12/22/2019 03:50:00 AM [facility] BASIC METABOLIC PANEL CALCIUM TOTAL BASIC METABOLIC PANEL Routi ne 12/22/2019 3:50 AM EDT 12/22/2019 03:50:00 AM EDT [facility] GLUCOSE QUANTITATIVE BLOOD XCPT REAGENT STRIP POCT GLUCOSE, DOC KED Routine 12/22/2019 12:40 AM EDT 12/22/2019 12:40:00 AM [facility] GLUCOSE QUANTITATIVE BLOOD XCPT REAGENT STRIP POCT GLUCOSE, DOC KED Routine 12/21/2019 5:40 PM EDT 12/21/2019 05:40:00 PM [facility] GLUCOSE QUANTITATIVE BLOOD XCPT REAGENT STRIP POCT GLUCOSE, DOC NICHOLASD Routine 12/21/2019 12:30 PM EDT 12/21/2019 12:30:00 PM [facility] BLOOD COUNT COMPLETE AUTOMATED CBC AND DIFFERENTIAL Routine 12/21/2019 4:37 AM EDT 12/21/2019 04:37:00 AM EDT [facility] PHOSPHORUS INORGANIC PHOSPHORUS LEVEL Routine 12/21/2019 4:37 AM E DT 12/21/2019 04:37:00 AM [facility] MAGNESIUM MAGNESIUM LEVEL Routine 12/21/2019 4:37 AM EDT 12/21/2019 04:37:00 AM [facility] BASIC METABOLIC PANEL CALCIUM TOTAL BASIC METABOLIC PANEL Routi ne 12/21/2019 4:37 AM EDT 12/21/2019 04:37:00 AM EDT [facility] GLUCOSE QUANTITATIVE BLOOD XCPT REAGENT STRIP POCT GLUCOSE, DOC KED Routine 12/20/2019 10:55 PM EDT 12/20/2019 10:55:00 PM [facility] BLOOD COUNT COMPLETE AUTOMATED CBC Routine 12/20/2019 8:31 P M EDT 12/20/2019 08:31:00 PM [facility] BASIC METABOLIC PANEL CALCIUM TOTAL BASIC METABOLIC PANEL Routi ne 12/20/2019 8:31 PM EDT 12/20/2019 08:31:00 PM EDT [facility] RADIOLOGIC EXAMINATION ANKLE 2 VIEWS XR ANKLE 2 VIEWS PORT-OR 7 3600 Routine 12/20/2019 6:21 PM EDT [place]/fibula fracture 12/20/2019 06:21:06 PM EDT [place]/fibula fr [facility] [place]/fibula fracture ORIF ANKLE, CALCANEOUS, PILON ORIF ANKLE, CALCANEOUS, PILON 12/20/2019 4:46 PM EDT right bimalleolar ankle fracture 12/20/2019 04:46:00 P M EDT - 12/20/2019 07:10:00 PM EDT [facility] GLUCOSE QUANTITATIVE BLOOD XCPT REAGENT STRIP POCT GLUCOSE, DOC KED Routine 12/20/2019 7:51 AM EDT 12/20/2019 07:51:00 AM [facility] BLOOD COUNT COMPLETE AUTOMATED CBC AND DIFFERENTIAL Routine 12/20/2019 2:56 AM EDT 12/20/2019 02:56:00 AM EDT [facility] PHOSPHORUS INORGANIC PHOSPHORUS LEVEL Routine 12/20/2019 2:56 AM E DT [facility]20[facility] MAGNESIUM LEVEL Routine 12/20/2019 2:56 AM EDT 12/20/2019 02:56:00 AM [facility] BASIC METABOLIC PANEL CALCIUM TOTAL BASIC METABOLIC PANEL Routi ne 12/20/2019 2:56 AM EDT 12/20/2019 02:56:00 AM EDT [facility] GLUCOSE QUANTITATIVE BLOOD XCPT REAGENT STRIP POCT GLUCOSE, DOC KED Routine 12/20/2019 2:53 AM EDT 12/20/2019 02:53:00 AM [facility] EKG ED PHYSICIAN INTERPRETATION EKG ED PHYSICIAN INTERPRETATION Routine 12/19/2019 9:19 PM EDT 12/19/2019 09:19:45 PM [facility] EKG 12-LEAD - CMAXX REPORT EKG 12-LEAD - CMAXX REPORT 12/19/2019 8:37 PM EDT 12/19/2019 08:37:51 PM EDT [facility] EKG 12-LEAD - CMAXX REPORT EKG 12-LEAD - CMAXX REPORT 12/19/2019 8:37 PM EDT 12/19/2019 08:37:51 PM EDT [facility] EKG 12-LEAD EKG 12-LEAD STAT 12/19/2019 8:37 PM EDT 12/19/2019 08:37:51 PM EDT [facility] EKG 12-LEAD - CMAXX REPORT EKG 12-LEAD - CMAXX REPORT 12/19/2019 8:37 PM EDT 12/19/2019 08:37:00 PM EDT [facility] XR CHEST FRONTAL ONLY [id number] XR CHEST FRONTAL ONLY [id number] STAT 12/19/2019 8:15 PM EDT 12/19/2019 08:15:27 PM EDT [facility] PROTHROMBIN TIME PROTIME INR STAT 12/19/2019 8:01 PM EDT 12/19/2019 08:01:00 PM EDT [facility] BLOOD COUNT COMPLETE AUTOMATED CBC STAT 12/19/2019 8:01 P M EDT [facility]/19[facility]2019 [facility] ABO TYPE AND SCREEN STAT 12/19/2019 8:01 PM EDT 12/19/2019 [facility] HEMOGLOBIN GLYCOSYLATED A1C HEMOGLOBIN A1C Routine 12/19/2019 8:01 PM EDT 12/19/2019 08:01:00 PM EDT [facility] BASIC METABOLIC PANEL CALCIUM TOTAL BASIC METABOLIC PANEL STAT 12/19/2019 8:01 PM EDT 12/19/2019 08:01:00 PM EDT [facility] CT LOWER EXTREMITY W/O CONTRAST MATERIAL CT LOWER EXT REMITY WITHOUT CONTRAST [id number] STAT 12/19/2019 7:12 PM EDT 12/19/2019 07:12 :05 PM EDT [facility] RADEX ANKLE COMPLETE MINIMUM 3 VIEWS XR ANKLE 3 OR MORE VIEWS 7 3610 STAT 12/19/2019 7:01 PM EDT 12/19/2019 07:01:00 PM EDT [facility] BLOOD COUNT COMPLETE AUTOMATED CBC AND DIFFERENTIAL STAT 12/03/2019 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 [facility] Anaplastic astrocytoma COMPREHENSIVE METABOLIC PANEL COMPREHENSIVE METABOLIC PANEL STA T 12/03/2019 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 [facility] Anaplastic astrocytoma BLOOD COUNT PLATELET AUTOMATED PLATELET COUNT STAT 020 3:35 PM EDT Neoplasm of brain causing mass effect on adjacent structures Thrombocytopenia 11/27/2019 03:35:00 PM EDT Thrombocytope niaNeoplasm of brain causing mass effect on adjacent structures [facility] Thrombocytopenia Neoplasm of brain causing mass effect on adjacent structures TRANSFUSE PLATELET PHERESIS (ONCE) TRANSFUSE PLATELET PHERESIS (ONCE) Routine 11/27/2019 2:58 PM EDT 11/27/2019 02:58:26 PM EDT [facility] COMPREHENSIVE METABOLIC PANEL COMPREHENSIVE METABOLIC PANEL STA T 11/27/2019 1:15 PM EDT Neoplasm of brain causing mass effect on adjacent structures 11/27/2019 01:15:00 PM EDT Neoplasm of brain causing mass effect on adjacent stru ctures [facility] Neoplasm of brain causing mass effect on adjacent structures BLOOD COUNT COMPLETE AUTO&AUTO DIFRNTL WBC COUNT CBC AND DIFFER ENTIAL STAT 11/27/2019 12:50 PM EDT Neoplasm of brain causing mass effect on adjacent structures Thrombocytopenia 11/27/2019 12:50:00 PM EDT Thrombocytope niaNeoplasm of brain causing mass effect on adjacent structures [facility] Thrombocytopenia Neoplasm of brain causing mass effect on adjacent structures BLOOD TYPING ABO TYPE AND SCREEN STAT 11/27/2019 12:50 PM EDT Neoplasm of brain causing mass effect on adjacent structures Thrombocytopenia 11/27/2019 12:50:00 PM EDT Thrombocytope niaNeoplasm of brain causing mass effect on adjacent structures [facility] Thrombocytopenia Neoplasm of brain causing mass effect on adjacent structures PREPARE PLATELET PHERESIS PREPARE PLATELET PHERESIS Routine 11/27/2019 12:33 PM EDT 11/27/2019 12:33:00 PM EDT [facility] Results ID Date Data Source [id number] 03/14/2020 09:47:00 PM EST [facility] Name Value Range Interpretation Code Description Data Karoline rce(s) Supporting Document(s) SARS coronavirus 2 RNA Not Detected [facility] This lab was ordered by [facility] and reported by [facility]. ID Date Data Source [id number] 03/14/2020 07:15:00 PM EST [facility] Name Value Range Interpretation Code Description Data Karoline rce(s) Supporting Document(s) COVID-19 NOT DETECTED [facility] This lab was ordered by [facility] and reported by [facility]. ID Date Data Source [id number] 03/14/2020 07:15:00 PM EST [facility] Name Value Range Interpretation Code Description Data Karoline rce(s) Supporting Document(s) COVID-19 REENTER NOT DETECTED [facility] This lab was ordered by [facility] and reported by [facility]. ID Date Data Source [id number] 03/13/2020 09:00:00 AM EST [facility] Name Value Range Interpretation Code Description Data Karoline rce(s) Supporting Document(s) SARS coronavirus 2 RNA Not Detected [facility] [place] This lab was ordered by [facility] and reported by [facility]. ID Date Data Source [id number] 03/10/2020 12:15:00 PM EST [facility] Name Value Range Interpretation Code Description Data Karoline rce(s) Supporting Document(s) SARS coronavirus 2 RNA Not Detected [facility] This lab was ordered by [facility] and reported by [facility]. ID Date Data Source [id number] 03/06/2020 10:00:00 AM EST [facility] Name Value Range Interpretation Code Description Data Karoline rce(s) Supporting Document(s) SARS coronavirus 2 RNA [facility] This lab was ordered by [facility] and reported by [facility]. ID Date Data Source [id number] 03/03/2020 11:20:00 AM EST [facility] Name Value Range Interpretation Code Description Data Karoline rce(s) Supporting Document(s) SARS coronavirus 2 RNA [facility] This lab was ordered by [facility] and reported by [facility]. ID Date Data Source [id number] 02/28/2020 11:20:00 AM EST [facility] Name Value Range Interpretation Code Description Data Karoline rce(s) Supporting Document(s) SARS coronavirus 2 RNA [facility] This lab was ordered by [facility] and reported by [facility]. ID Date Data Source [id number] 01/30/2020 01:26:00 PM EST [facility] Name Value Range Interpretation Code Description Data Karoline rce(s) Supporting Document(s) SARS coronavirus 2 RNA [facility] This lab was ordered by [facility] and reported by [facility]. ID Date Data Source [id number] 01/29/2020 04:49:51 PM EST [facility] XR ANKLE 3 OR MORE VIEWS [id number] RESU LTInterpreted by:LISSY Ordoñezlinical history: Status post [...] Name Value Range Interpretation Code Description Data Karloine rce(s) Supporting Document(s) ID Date Data Source [id number] 01/29/2020 12:04:20 PM [facility] Name Value Range Interpretation Code Description Data Karoline rce(s) Supporting Document(s) Progress Note [facility] MVMVRq6sWmIHTyFt90/ELRsxEKAzu7WrPRybISx2OLqxLUDjQ4ByNJB4vB0oJQZ1TJgPQvWwWcQkYZS6 m [file] Q0DJMnZNNjHGRbNuT1BVTvTmAvVNB9LiN7QkMbLO 8BCf5ZJpM7KTW1pXXxQj0ZWEl3SRtVJvVwOT3QRAl= ID Date Data Source [id number] 01/29/2020 11:10:00 AM EST [facility] Name Value Range Interpretation Code Description Data Karoline rce(s) Supporting Document(s) Progress Note [facility] UQENAl8iGgKBVnDz75/EOMfvEAQrm7LxNVnnQMn7WGzeLAIaY5LvAXQ7gS0vVEZ7EZvGIoSzLzPiGHT5 lbm EtXusYTxVtAZVbNayCQcDlASfkFacdzZUlDG4YhDH6JRKuH08jLKXvCNRlR6DvECL9QXX+Eo2JSYWaeC SkCM9DVhdQ2Zzst3vSVT7f0C2xEOBhW5L4H7nTgzUSqHcGiVHhfIMu9WOn9UK3dfglnNohrf+jjy3N77 UWH361mqrGgQPQp+fdE0xFVm66MMf9qtXCNb+/+en6 SuyX1a5/Gq17G063YO/ZJnKBMjzDLS/Rykso4sbnTANIE4Cv5QCkYmfwOk+fpJDpFCE2vps3ZjZ6i2Vc w08q9AtCtVoSpXZkx4OBXpIrOdul0qgdORCfply9SFsES5sbFYDkIJxDTro3zzq8iIbzfgUukwm7Xlus qopzMQzfn53Jz2ZYTVwwkaL4AxoheuY+ORQfeytdGo [file] B3VzNhPMPhMcs7OaWsEZ1JAo5VPhM4VTO2uCLcEf8YGgWeWTAEIpMyNK2QCQx= ID Date Data Source [id number] 01/17/2020 07:09:22 AM [facility] XR ANKLE 3 OR MORE VIEWS [id number] RESU LTInterpreted by:JALEESA Jennings ANKLECLINICAL STATEMENT: Status [...] rce(s) Supporting Document(s) ID Date Data Source [id number] 01/15/2020 01:21:21 PM [facility] Name Value Range Interpretation Code Description Data Karoline rce(s) Supporting Document(s) Progress Note [facility] ZLROTl9cKvIUUiEm52/KYGftHUYuc8PpJUniWEt8ASxdGCMpD8CsRCT2fC9gANO5RZoHVqDpKzZgZUGn m NjXvzBOnHdUFJyEzeYHxBzMNlvAyixaSAjZL7MtXT0BFUyW76eLVJnXVGaN3OxCMW3Xfp+Dm8PZYNnhK IxDR7TStkJ6GrDfxg1GP6t5F3JbZHiJNW1PTrdHmASozSMXeymI79A2O0REPDyVPwEr5E+617YSt5FHh rZlIvGfpA+DDnDuWepZaz6+2uFxpNuQMc3v98MoMC3 Kfv+A7Hff3G5rXamIGDTidJtVU9Wa6z+9DFPGjO91LzKjwLWDhJYvpFr+2WOzz6d633v3ujAwUtsGf4M MoB6rgLV+a3JgfLGZEE0Bv0FSWwotZxjlrHENc7OYD2GpNvLRC5nQfa5Rx/3CopD6ozZJvrRvoFlQ2ek RCaSnSN6mTZLCG2/K/Ywy9712pxaU76+zpw8juVOI+ ckw2WRiTeiOEDpEUc01HPYDaYi2NhaoWAmlfYzk0Vaw5oXwx6m9M6vRhEQI+jfeXAopEgFFR9YtXiXjC monserrat/rXv4xxvDOkV+sIav0s9ldwNObwxX/lyiPvhrITfmQRVwICD8pWoPaXyZVpZbTfZfyvnBkKsEvQGT [file] DQogICAgICAgICAgICAgICAgICAgICAgICAgICAgICAgICAgICAgICAgICAgICAgICAgICAgICAgICAg ICAgICAgICAgICAgICAgICAgICAgICAgICAgICAgIC AgICAgICAgICAgDQogICAgICAgICAgICAgICAgICAgICAgICAgICAgICAgICAgICAgICAgICAgICAgIC AgICAgICAgICAgICAgICAgICAgICAgICAgICAgICAgICAgICAgICAgICAgICAgICAgICAgDQogICAgIC AgICAgICAgICAgICAgICAgICAgICAgICAgICAgICAg ICAgICAgICAgICAgICAgICAgICAgICAgICAgICAgICAgICAgICAgICAgICAgICAgICAgICAgICAgICAg ICAgDQogICAgICAgICAgICAgICAgICAgICAgICAgICAgICAgICAgICAgICAgICAgICAgICAgICAgICAg ICAgICAgICAgICAgICAgICAgICAgICAgICAgICAgIC AgICAgICAgICAgICAgDQogICAgICAgICAgICAgICAgICAgICAgICAgICAgICAgICAgICAgICAgICAgIC AgICAgICAgICAgICAgICAgICAgICAgICAgICAgICAgICAgICAgICAgICAgICAgICAgICAgICAgDQogIC AgICAgICAgICAgICAgICAgICAgICAgICAgICAgICAg ICAgICAgICAgICAgICAgICAgICAgICAgICAgICAgICAgICAgICAgICAgICAgICAgICAgICAgICAgICAg ICAgICAgDQogICAgICAgICAgICAgICAgICAgICAgICAgICAgICAgICAgICAgICAgICAgICAgICAgICAg ICAgICAgICAgICAgICAgICAgICAgICAgICAgICAgIC AgICAgICAgICAgICAgICAgDQogICAgICAgICAgICAgICAgICAgICAgICAgICAgICAgICAgICAgICAgIC AgICAgICAgICAgICAgICAgICAgICAgICAgICAgICAgICAgICAgICAgICAgICAgICAgICAgICAgICAgDQ ogICAgICAgICAgICAgICAgICAgICAgICAgICAgICAg ICAgICAgICAgICAgICAgICAgICAgICAgICAgICAgICAgICAgICAgICAgICAgICAgICAgICAgICAgICAg ICAgICAgICAgDQogICAgICAgICAgICAgICAgICAgICAgICAgICAgICAgICAgICAgICAgICAgICAgICAg ICAgICAgICAgICAgICAgICAgICAgICAgICAgICAgIC RpNYLcJOXzBDUtYEQoTRPjSCUmTRv7Z5gqMARqYWAvQG2bNHa5Qy8+XMxEYvZaHMM6vyShuT9KRS8yk0 SmKDgpEOYxl4LrPNk6CZ2FQMJkEXejAN1OISrzcg0ZDXQsOXRsiFRNc4gmLhIkZZM2ITHwRptfRG3CPD VbZ1yinpCiASBxWJWCOC1KErFkG9ZzaS61RKALEa9+ MZbqwbKiKdxDZnQ8LZHrs7FsQBb7ET2EOEOmEovkv9EqKdFcFFNRAXrjYC4QUME4TWZlIUXaRl4RFABm A255caTzAL2LUy8EBcRrNN8pmm5HEmCeKVToAwtQDzy8QXzrRH5ZrQBoOPlJyr9tsmYsoyUEn0AoxwYu bIGUv48mtLxqxvTJwSXaytMpoLCnQX9jOC2yMDOzHK KtTmG2WXVFZX7ETRUmJQPqqUDlNMHeJFMVPI6RWGsgZZJ9HYSdfqIwpNMpRMyfNH7FSHLnutHnEZkiSX BSDQo+Sl1VAR6wf4OtXGxgIRZiWJ3qkr7TFDaQHeVbU2N2iDFbG2K9NYmuHy5FTMDtBHVhUPflXCRROW svWZ3VRL2fgnD7PI2LnIMqJZXxEYKsiEEoVYp0M11x oETkBGnfQN5AXCP+Greta+Ho8GYAJpVWYkIZEpJsNnLOLZZhMzW6GxG4BBa6KuO0QwIB84kPwyvtXhGGif NL3MTV7eVZYhVSGXEA3TjCGwqK6rayPwQDRtBZQFIgOpL72eeKFtOYCxACJ1DZZmBl4TRFGbK1GoksZd mNxqaaQsAYOiDZSZSF1OQSksbkYfzQUhuVjlJP54fR phAM4CIs2MYeKqXH1gde9IdNWdGw1PDOGuSm1KYIVmZHXsKWIuCUK9IFRoVqNfDXlwZVYrNCXnMQP3EZ ZcTCZtNC6OOrQfZBHtCDC8TFZvLUSzCNDfhi1CHFPvPESsJJL8YFAwPLRaSLHkGOrhPZTtHRTaFVR3FE UsSJEsAQ6KIwHiPOOaVGS6ULHuCGGqSSHyhw4JENUg YLZwWmDsIABjVODlRPLiKQvxCBVkTZEmXAT8ZZTmIMBjOR4PMpPxLGEzHUUjCxKuLOXkRGExfb3GOQUg KCBxQeT8HWSkTXWiNVRlARafUCZsQFN6NtMkYLYcDWUdGR8ITkWaCTEtQII9FFPlDTVvLZKcpz9BBBCq HZFrSQN4GpUoTIAmQWBgCOmaRJRpODE7WZX7RSEdXB BeHN2TOdAsFEKhWJXvEnSkEQPsXWMrzl2GOHWzZCZtTzL1CvVqFLVnANNsVYdqSPOkPRU2EMWhOKNfVX CuWJ9VWaPfEFUqKQX6IYecVTSgFZToko2JVEYySUFvYlA3QWYuGIWrKCWmKOkgJHAdMCZ1Ntb3MPUbEH PkJZ5JEvRqIUPdIVn9LsgkRYLfSSYmec1EIKGdBXGr EXPfFoUdKMUjWWKkYXm1dmTqcKMoNFy5MA4EF9DiroVlYxMWHl6Qb804FCZfYOMhMm0VR7rqOy2qCEDi HCUNKo9ZMRt0I4X6NHV7AsvnFqP3NAufUhUpDtDgVIToIsskLcj2EoQ+LPizNEocJaOnOOK2ZHV2BsPd QBIeF6XdNdYlTfPuNHigNi3pRSIRNx3+RNadqUXkeZpgKKKKMbC1JjV6JJkjGVITGo4N ID Date Data Source [id number] 01/15/2020 12:42:10 PM [facility] Name Value Range Interpretation Code Description Data Karoline rce(s) Supporting Document(s) Progress Note [facility] UWELMo0tZrPCAxUr04/BBCsqVKEjp6JmVBvdQSh8HPjqHPQzC9XaPVV1sZ5lXMD7OReGOfNgZmPtLVXx lbm PrQrjMDwDqWJFqHioLTzCsQHhaRcyadPJqFI5VvQW5ZZWwC50sIVXjBYZtV9RlHQGsOdN+Hk3ZJUTdwU KoNL0IBtbE9Saqa7jGXs6i5B0ghFCNSQbctzVqILFdkUn0nEfWkHSBMGtFA0YBuNLiFW9X++gSQ1SlFX TrEbQwHBS0IZsjDRfR/cKRhaj+/MsVbUpzDLT9C6/1 QyVGc/JcJ3SoVpg6yaDf4BVCXEtg/OqB/Kstb8LJhp2profpOG/ueUKRsP83GktiE63jxqaCRI5MS [file] T0YNCg== ID Date Data Source [id number] 01/01/2020 03:43:38 PM EDT [facility] Name Value Range Interpretation Code Description Data Karoline rce(s) Supporting Document(s) Discharge Summary [facility] NGIJTx3oBdKEVqDi77/QHEndQCYlm2KcLNfyDEr3GFswUDExH3VlGYT5uA3pWXK0CYrTKaMrRzPwVMJ7 lbm [file] ReA5OGL4Ol6lJHPLRy4+PBwsvZNhdXefJBELChPkPJD7ZRmkQSVPZj5F ID Date Data Source [id number] 12/24/2019 01:12:[address] [facility] Name Value Range Interpretation Code Description Data Karoline rce(s) Supporting Document(s) Glucose [Mass/volume] in Capillary blood by Glucometer 172 mg/dL 70- 140 H [facility] ID Date Data Source [id number] 12/24/2019 01:58:21 PM EDT [facility] Service Cmnt XXX-Imp : NoneRespiratory P CR Panel : PCR ResultsMicroorganism XXX Cult : See Labs Tab for 2019 nCoV RT-PCR resultsHAdV DNA QI WICHO+non-probe : Not DetectedHCoV 229ERNA Nph QI WICHO+non-probe : Not DetectedHCoV KRK3PWL Nph QI WICHO+non-probe : Not UxipmvtrTRxYTB90 RNA Nph QI WICHO+non-probe : Not FnzionjpEBmZJH42 RNA Upper resp QI WICHO+probe : Not [...] DNA Nph Q WICHO+non-probe : Not DetectedB ipvirPZ889 DNA Nph WICHO+non-probe : Not Detected Name Value Range Interpretation Code Description Data Karoline rce(s) Supporting Document(s) ID Date Data Source [id number] 12/24/2019 01:57:54 PM EDT [facility] Name Value Range Interpretation Code Description Data Karoline rce(s) Supporting Document(s) Specimen source [Identifier] of Unspecified specimen [facility] SARS-CoV-2 RNA 2019 nCoV Real-Time RT-PCR: NOT DETECTED [facility] Assay Performed [facility] Patients first test for [facility] Patient employed in healthcare setting [facility] Patient has symptoms related to [facility] When did you start to experience these symptoms [Date and time] [Phen X] [facility] Patient was hospitalized because of this condition [facility] patient was admitted to ICU for condition [facility] Patient resides in a congregate care setting [facility] status [facility] ID Date Data Source [id number] 12/[facility]2019 [facility]57[facility] Name Value Range Interpretation Code Description Data Karoline rce(s) Supporting Document(s) SARS-CoV-2 RNA [facility] This lab was ordered by [facility] and reported by [facility]. ID Date Data Source [id number] 12/24/2019 07:51:50 AM [facility] Value Range Interpretation Code Description Data Karoline rce(s) Supporting Document(s) Glucose [Mass/volume] in Capillary blood by Glucometer 188 mg/dL 70- 140 H [facility] ID Date Data Source [id number] 12/24/2019 04:20:30 AM [facility] Value Range Interpretation Code Description Data Karoline rce(s) Supporting Document(s) Leukocytes [#/volume] in Blood by Automated count 10.1 10*3/uL 4-10 H [facility] Erythrocytes [#/volume] in Blood by Automated count 2.77 10*6/uL 4.1- 5.3 [facility] Hemoglobin [Mass/volume] in Blood 9.3 g/dL 11.5-15.5 [facility] Hematocrit [Volume Fraction] of Blood by Automated count 26.8 % 3 6-45 [facility] Erythrocyte mean corpuscular volume [Entitic volume] by Auto mated count 96.6 fL 80-96 [facility] Erythrocyte mean corpuscular hemoglobin [Entitic mass] by Automated count 33.4 pg 27-33 [facility] Erythrocyte mean corpuscular hemoglobin concentration [Mass/volume] by Automated count 34.6 g/dL 32.0-36.0 [facility] width [Ratio] by Automated count 20.4 % 11.5-14.5 [facility] Platelets [#/volume] in Blood by Automated count 147 10*3/uL 150-400 [facility] ID Date Data Source [id number] [facility] Interpretation Code Description Data Karoline rce(s) Supporting Document(s) Glucose [Mass/volume] in Capillary blood by Glucometer 235 mg/dL 70- 140 H [facility] ID Date Data Source [id number] 12/23/2019 05:04:30 PM [facility] Value Range Interpretation Code Description Data Karoline rce(s) Supporting Document(s) Glucose [Mass/volume] in Capillary blood by Glucometer 218 mg/dL 70- 140 H [facility] ID Date Data Source [id number] 12/23/2019 07:57:05 AM [facility] Value Range Interpretation Code Description Data Karoline rce(s) Supporting Document(s) Glucose [Mass/volume] in Capillary blood by Glucometer 183 mg/dL 70- 140 [facility] ID Date Data Source [id number] 12/23/2019 06:19:29 AM [facility] Value Range Interpretation Code Description Data Karoline rce(s) Supporting Document(s) Leukocytes [#/volume] in Blood by Automated count 8.1 10*3/uL 4-10 [facility] Erythrocytes [#/volume] in Blood by Automated count 2.75 10*6/uL 4.1- 5.3 [facility] Hemoglobin [Mass/volume] in Blood 9.3 g/dL 11.5-15.5 [facility] Hematocrit [Volume Fraction] of Blood by Automated count 26.6 % 3 6-45 [facility] Erythrocyte mean corpuscular volume [Entitic volume] by Auto mated count 96.8 fL 80-96 [facility] Erythrocyte mean corpuscular hemoglobin [Entitic mass] by Automated count 33.9 pg 27-33 [facility] Erythrocyte mean corpuscular hemoglobin concentration [Mass/volume] by Automated count 35.0 g/dL 32.0-36.0 [facility] distribution width [Ratio] by Automated count 20.1 % 11.5-14.5 [facility] Platelets [#/volume] in Blood by Automated count 142 10*3/uL 150-400 [facility] ID Date Data Source [id number] 12/23/2019 06:23:04 AM [facility] Value Range Interpretation Code Description Data Karoline rce(s) Supporting Document(s) Magnesium [Mass/volume] in Serum or Plasma 2.1 mg/dL 1.6-2.6 [facility] ID Date Data Source [id number] 12/23/2019 06:23:04 AM [facility] Name Value Range Interpretation Code Description Data Karoline rce(s) Supporting Document(s) Bicarbonate [Moles/volume] in Serum 25 mmol/L 22-29 [facility] Chloride [Moles/volume] in Serum or Plasma 101 mmol/L 98-107 [facility] Creatinine [Mass/volume] in Serum or Plasma 0.56 mg/dL 0.50-0.90 [facility] Glucose [Mass/volume] in Serum or Plasma 170 mg/dL 70-140 H [facility] Potassium [Moles/volume] in Serum or Plasma 3.6 mmol/L 3.4-5.1 [facility] Sodium [Moles/volume] in Serum or Plasma 135 mmol/L 136-145 L [facility] Urea nitrogen [Mass/volume] in Serum or Plasma 13 mg/dL 6-20 [facility] Anion gap 3 in Serum or Plasma 9 mmol/L 8-15 [facility] Osmolality of Serum or Plasma by calculation 284 mosm/kg 275-300 [facility] Creatinine/Urea nitrogen [Mass Ratio] in Serum or Plasma 23 [facility] Calcium [Mass/volume] in Serum or Plasma 8.7 mg/dL 8.6-10.0 [facility] Glomerular filtration rate/1.73 sq M pre dicted among non-blacks [Volume Rate/Area] in Serum or Plasma by Creatinine-based formula (MDRD) >6 0 [facility] Glomerular filtration rate/1.73 sq M pre dicted among blacks [Volume Rate/Area] in Serum or Plasma by Creatinine-based formula (MDRD) >60 [facility] ID Date Data Source [id number] 12/23/2019 06:23:04 AM [facility] Name Value Range Interpretation Code Description Data Karoline rce(s) Supporting Document(s) Phosphate [Mass/volume] in Serum or Plasma 2.2 mg/dL 2.5-4.5 L [facility] ID Date Data Source [id number] 12/23/2019 12:50:52 AM [facility] Value Range Interpretation Code Description Data Karoline rce(s) Supporting Document(s) Glucose [Mass/volume] in Capillary blood by Glucometer 204 mg/dL 70- 140 H [facility] ID Date Data Source [id number] 12/22/2019 05:27:35 PM EDT [facility] Name Value Range Interpretation Code Description Data Karoline rce(s) Supporting Document(s) Glucose [Mass/volume] in Capillary blood by Glucometer 218 mg/dL 70- 140 H [facility] ID Date Data Source [id number] 12/22/2019 08:24:59 AM EDT [facility] Name Value Range Interpretation Code Description Data Karoline rce(s) Supporting Document(s) Progress Note [facility] VHTCGf0bWlVHDnDy75/DALnrHRPlx4VeSQsxADb2LAbjFDMkJ4GwBQD0rI4jFPS0PMdFOySzJeDsOVS6 lbm [file] AgICAgICAgICAgICAgICAgICAgICAgICAgICAgICAg ICAgICAgICAgICAgICAgICAgICAgICAgICAgICANCiAgICAgICAgICAgICAgICAgICAgICAgICAgICAg ICAgICAgICAgICAgICAgICAgICAgICAgICAgICAgICAgICAgICAgICAgICAgICAgICAgICAgICAgICAg ICAgICAgICAgICANCiAgICAgICAgICAgICAgICAgIC AgICAgICAgICAgICAgICAgICAgICAgICAgICAgICAgICAgICAgICAgICAgICAgICAgICAgICAgICAgIC AgICAgICAgICAgICAgICAgICAgICANCiAgICAgICAgICAgICAgICAgICAgICAgICAgICAgICAgICAgIC AgICAgICAgICAgICAgICAgICAgICAgICAgICAgICAg ICAgICAgICAgICAgICAgICAgICAgICAgICAgICAgICANCiAgICAgICAgICAgICAgICAgICAgICAgICAg ICAgICAgICAgICAgICAgICAgICAgICAgICAgICAgICAgICAgICAgICAgICAgICAgICAgICAgICAgICAg ICAgICAgICAgICAgICANCiAgICAgICAgICAgICAgIC AgICAgICAgICAgICAgICAgICAgICAgICAgICAgICAgICAgICAgICAgICAgICAgICAgICAgICAgICAgIC AgICAgICAgICAgICAgICAgICAgICAgICANCiAgICAgICAgICAgICAgICAgICAgICAgICAgICAgICAgIC AgICAgICAgICAgICAgICAgICAgICAgICAgICAgICAg ICAgICAgICAgICAgICAgICAgICAgICAgICAgICAgICAgICANCiAgICAgICAgICAgICAgICAgICAgICAg ICAgICAgICAgICAgICAgICAgICAgICAgICAgICAgICAgICAgICAgICAgICAgICAgICAgICAgICAgICAg ICAgICAgICAgICAgICAgICANCiAgICAgICAgICAgIC AgICAgICAgICAgICAgICAgICAgICAgICAgICAgICAgICAgICAgICAgICAgICAgICAgICAgICAgICAgIC AgICAgICAgICAgICAgICAgICAgICAgICAgICANCiAgICAgICAgICAgICAgICAgICAgICAgICAgICAgIC AgICAgICAgICAgICAgICAgICAgICAgICAgICAgICAg ICAgICAgICAgICAgICAgICAgICAgICAgICAgICAgICAgICAgICANCjw/mUBtY3sksLZvzwA1K6vaJr9D Si5QVK2fd0YdYTIwWLhnajJkAeqYQrTqPGBgBxeCLuu0SObrDO6UjKQsG4YvV1LgYGapJE1KMPFbOQAn kRSwRENrTFVdVnL3FCAmBDfhVS3HqPEtWYfzJPUsOI OmWvHjCYTkADJpYKXpRLWjRXSOQWWkVKNiAkClMDYlOHUeFY2VUIVsB640fzAkXg7IQf0YBeOpIW5jso 6NPqGkNGPxNzrWIqm7HZinJC1TrHAhhJPbPpStQKTSWfQnG1kun6HwAgYgYZGIPOjmEW6Oq8DzcUWoZM o+Gv4HNP9vw4EdSMhjBxNlMM4cct8POUiUQcMaB6Tl aFuiJEXwa0yuELRmHD1ikEYvSIF1NDatx6KnD5BrDOERAXBnK4zdrkumEwMoQTVzIB8mSp7mHPDmJIOj IdS9ZBPRPY4WREUuLRWmrESfBSWnAXWPRD4RHJkjAQI1CCXnuhRhzSTfTKtsFV5NBMQvicEmNsWdFYCH DQo+Ky0XLK4no0UhSEaaUkTaGL1smj0TUOtXIgYcO6 C3vGGiW0C4YAueBy8DOQPgCDXqQlTcTPGERZegDY5UGF9peeY0WY1KpQDyYGOiTKCnxJSwWLe2D15tcW YbLGhoCX9AHOJ+Greta+Ek5MPKPgJMHyXAHuOqZdYFMEKsCbB8JoK8KDj9IhY5RiOU68pOrohqLtIOnoGR 3ELI9bCOIyUXIARW4AxULzeW0zunBoPUDkATQKRdLz J19lyAJpMVBtYFB1MLMiIl8AYQNvX2LnboSivExwnxRyRRKaJBLTYV9PTWbozwTaiNXibVbvMI40sTnb TN9ITp3ODzStZC4hjd6JmBFtOy6VKUVuEB6KBOKeJDDaQXJiAES2PHJhNbXoNUicXHEfVAVgMHG5AIQl XUCrNJ1CGvIcCNAoGQU0QldxSWVrFWZpcy1BVLBkSW H3YNVuMDKrEWStHWWuXAdvXFPnCFGbKJE3ANKlQSFqFP6NFkJkIUUlWSF0QPJqWKXwUVClvu8XFMIpEC EoZAw9EtMrAMIaNZPcDHvfTNRuKLX6GpWzLXFtXVKtEZ4QTrZvVAXxMDx8BuQqNCUvXKFbly9NTMHyGM YuGmAvWVHnCAVbCKTfRJitHMIeUHYxBsQ7WYTvLEVm EZ6TZvFhAFYgYXhsYQMbNTHhVCIvxv0WEFGcZCQhAyX4RZTxHYToYWDoPYhcVDAiVMBqGLHySVVrXTGz QK6VFeStLQMsTeXeFryqXOWyGIDeun3GJKAgUHOgTCW4IwInRBKpAUXkYYpgABSvOHO0IInjDOKwJSGf DE9STfPhSZGiZwM7AUGaSGUbDFGzgp4EXFQjHGMnXk A4BTNdCOMeXSPmDWngXNHbWLI3BiLdGXSuKJLmAI0KLnYeHCSbRilxUPDyJZXzYEEsrk2ROBTmIMNgLj M1VcGfUTKiTSOdHAmeNFYpBQT1ASudMJNhOXEpYM2TLyHgSKHzLiuvFTIkVTXjWVLsir8OIOGxUZQyGA DqRdNrRPGlWTYfHPbhVESgZEK7UES9HSDuVUQjNR4P WoHpTGYwLmv6WPSoJSXdDUZydx3AILXwCNZhCSd0XZQtBCYvMOLmLHmmJHNrBAJkDFj5WWLcXYXjGO4K XpKrKNQeSYRrVqGyFEDaUYDngm9AKFBcNAC6CHVsBcIzYRFsNJQlNBsbGFShLOJyDXcxXGYmPDEdJN6T WtCgNUYfQSKmAbijCDEvCVCosh1CUBZaEJM6XfD8Uw QfYGTbANVsXCwyPRJuUCIpEOlrGKEdGGPoVL8EJcWaUJSmKPQ8AGDwXIDdQUWnnu0BOBGeAXV1OECtFz GnHJUyMAHqTTdtAMAwOAZ7Ezc2JUUzGRPtOC4JFiZjYCwmNHECLvz9MGefJ1k2TDEzBJ4HE2Jfm2YzIx vxVSCWWMyqLO1vltBmFRNhNt7DX5vNHcbaEVx6Eqmo NQAtNqj7NyyiSOM9C5TfRPV2ECHsDRH9EX3aBLU0DLRyEPD2RiIyLQc9HQDgIgy0QMF2EHJiUJGxNJu2 XxBoAO1LSq1GVzD4GKK9vKVuFw4FGLK7YFaJOtAvBB7FPAi= ID Date Data Source [id number] 12/22/2019 08:27:[facility] Name Value Range Interpretation Code Description Data Karoline rce(s) Supporting Document(s) Glucose [Mass/volume] in Capillary blood by Glucometer 108 mg/dL 70- 140 [facility] ID Date Data Source [id number] 12/22/2019 05:48:22 [facility] Name Value Range Interpretation Code Description Data Karoline rce(s) Supporting Document(s) Leukocytes [#/volume] in Blood by Automated count 9.9 10*3/uL 4-10 [facility] Erythrocytes [#/volume] in Blood by Automated count 2.84 10*6/uL 4.1- 5.3 L [facility] Hemoglobin [Mass/volume] in Blood 9.5 g/dL 11.5-15.5 L [facility] Hematocrit [Volume Fraction] of Blood by Automated count 27.6 % 3 6-45 L [facility] Erythrocyte mean corpuscular volume [Entitic volume] by Auto mated count 97.2 fL 80-96 H [facility] Erythrocyte mean corpuscular hemoglobin [Entitic mass] by Automated count 33.5 pg 27-33 H [facility] Erythrocyte mean corpuscular hemoglobin concentration [Mass/volume] by Automated count 34.5 g/dL 32.0-36.0 [facility] distribution width [Ratio] by Automated count 20.0 % 11.5-14.5 H [facility] Platelets [#/volume] in Blood by Automated count 144 10*3/uL 150-400 L [facility] ID Date Data Source [id number] 12/22/2019 06:04:[address] [facility] Name Value Range Interpretation Code Description Data Karoline rce(s) Supporting Document(s) Bicarbonate [Moles/volume] in Serum 27 mmol/L 22-29 [facility] Chloride [Moles/volume] in Serum or Plasma 101 mmol/L 98-107 [facility] Creatinine [Mass/volume] in Serum or Plasma 0.68 mg/dL 0.50-0.90 [facility] Glucose [Mass/volume] in Serum or Plasma 160 mg/dL 70-140 H [facility] Potassium [Moles/volume] in Serum or Plasma 3.1 mmol/L 3.4-5.1 [facility] Sodium [Moles/volume] in Serum or Plasma 139 mmol/L 136-145 [facility] Urea nitrogen [Mass/volume] in Serum or Plasma 10 mg/dL 6-20 [facility] Anion gap 3 in Serum or Plasma 11 mmol/L 8-15 [facility] Osmolality of Serum or Plasma by calculation 290 mosm/kg 275-300 [facility] Creatinine/Urea nitrogen [Mass Ratio] in Serum or Plasma 15 [facility] Calcium [Mass/volume] in Serum or Plasma 8.6 mg/dL 8.6-10.0 [facility] Glomerular filtration rate/1.73 sq M pre dicted among non-blacks [Volume Rate/Area] in Serum or Plasma by Creatinine-based formula (MDRD) >6 0 [facility] Glomerular filtration rate/1.73 sq M pre dicted among blacks [Volume Rate/Area] in Serum or Plasma by Creatinine-based formula (MDRD) >60 [facility] ID Date Data Source [id number] 12/22/2019 06:04:29 AM EDT [facility] Name Value Range Interpretation Code Description Data Karoline rce(s) Supporting Document(s) Magnesium [Mass/volume] in Serum or Plasma 2.1 mg/dL 1.6-2.6 [facility] ID Date Data Source [id number] 12/22/2019 06:04:[address] [facility] Value Range Interpretation Code Description Data Karoline rce(s) Supporting Document(s) Phosphate [Mass/volume] in Serum or Plasma 2.1 mg/dL 2.5-4.5 L [facility] ID Date Data Source [id number] 12/22/2019 12:47:[address] [facility] Value Range Interpretation Code Description Data Karoline rce(s) Supporting Document(s) Glucose [Mass/volume] in Capillary blood by Glucometer 227 mg/dL 70- 140 H [facility] ID Date Data Source [id number] 12/21/2019 07:19:[address] [facility] Value Range Interpretation Code Description Data Karoline rce(s) Supporting Document(s) ED Provider Note [facility] WQPFBf0jVkKWIaOq65/MUOyiTAZyk0YlMSksWHe8CMhvACTpH5HaMAF0zA9cTEB1LEkLHkLkNzPmDVA9 lbm [file] OTc+JK8uJTv+Ub5If9FzklG5vrOxNBx3JbQuTA4MECBZC0ZLGk== ID Date Data Source [id number] 12/21/2019 05:42:17 PM EDT [facility] Name Value Range Interpretation Code Description Data Karoline rce(s) Supporting Document(s) Glucose [Mass/volume] in Capillary blood by Glucometer 161 mg/dL 70- 140 H [facility] ID Date Data Source [id number] 12/21/2019 12:32:26 [facility] Name Value Range Interpretation Code Description Data Karoline rce(s) Supporting Document(s) Glucose [Mass/volume] in Capillary blood by Glucometer 213 mg/dL 70- 140 H [facility] ID Date Data Source [id number] 12/21/2019 08:54:49 AM EDT [facility] XR ANKLE 2 VIEWS [place] [id number] RESU LTInterpreted by:Neftaly Moore, MDPortable right ankle [...] rce(s) Supporting Document(s) ID Date Data Source [id number] 12/21/2019 08:39:46 AM T [facility] Name Value Range Interpretation Code Description Data Karoline rce(s) Supporting Document(s) Consultation [facility] BKSEYz5rUtPKFeXa77/ESTbhBJEbx0MrDIzoHEo1QTptPELmW6SsKVL9wT1iENT8KOyGJsHqBoTyZPT4 lbm [file] AgICAgICAgICAgICAgICAgICAgICAgICAgICAgICAgICAgICAgICAgICAgICAgICAgICAgICAgICAgIC AgICAgICAgICAgICAgICANCiAgICAgICAgICAgICAg ICAgICAgICAgICAgICAgICAgICAgICAgICAgICAgICAgICAgICAgICAgICAgICAgICAgICAgICAgICAg ICAgICAgICAgICAgICAgICAgICAgICAgICANCiAgICAgICAgICAgICAgICAgICAgICAgICAgICAgICAg ICAgICAgICAgICAgICAgICAgICAgICAgICAgICAgIC AgICAgICAgICAgICAgICAgICAgICAgICAgICAgICAgICAgICANCiAgICAgICAgICAgICAgICAgICAgIC AgICAgICAgICAgICAgICAgICAgICAgICAgICAgICAgICAgICAgICAgICAgICAgICAgICAgICAgICAgIC AgICAgICAgICAgICAgICAgICANCiAgICAgICAgICAg ICAgICAgICAgICAgICAgICAgICAgICAgICAgICAgICAgICAgICAgICAgICAgICAgICAgICAgICAgICAg ICAgICAgICAgICAgICAgICAgICAgICAgICAgICANCiAgICAgICAgICAgICAgICAgICAgICAgICAgICAg ICAgICAgICAgICAgICAgICAgICAgICAgICAgICAgIC AgICAgICAgICAgICAgICAgICAgICAgICAgICAgICAgICAgICAgICANCiAgICAgICAgICAgICAgICAgIC AgICAgICAgICAgICAgICAgICAgICAgICAgICAgICAgICAgICAgICAgICAgICAgICAgICAgICAgICAgIC AgICAgICAgICAgICAgICAgICAgICANCiAgICAgICAg ICAgICAgICAgICAgICAgICAgICAgICAgICAgICAgICAgICAgICAgICAgICAgICAgICAgICAgICAgICAg ICAgICAgICAgICAgICAgICAgICAgICAgICAgICAgICANCiAgICAgICAgICAgICAgICAgICAgICAgICAg ICAgICAgICAgICAgICAgICAgICAgICAgICAgICAgIC AgICAgICAgICAgICAgICAgICAgICAgICAgICAgICAgICAgICAgICAgICANCiAgICAgICAgICAgICAgIC AgICAgICAgICAgICAgICAgICAgICAgICAgICAgICAgICAgICAgICAgICAgICAgICAgICAgICAgICAgIC AgICAgICAgICAgICAgICAgICAgICAgICANCjw/eHBh D6sauIObbiS2U9fzOj7JZu0HGJ5ma5OsOOOeCXvmixWhMwsIQuRjAWSlCzhVGrg4BXfhEU3WjOJuT1Ib Q5ZoVAmgFB5GVYZnBASqdIIpQDGeKINqFuA2VUJvANoqJK0OvFEeVXqtGRQxZRKvHkYmIGFqDOAaSVDd RPEzTBZKQOHiZAVoKtAePLOwVUBlJR1TTWHdQ600yq TuDf7UBy7FTwObQJ0eea7ZXxQgEUXyHyuQWkv7QAaxGQ9AmGYyxHXdTzUbISXZDcRmV8alg6MwLkPrGT QJFGxwRM9Ye1UshNZlIZu+Jr0MIE6wx8WrATidVbUpNM6okv6DVGiZKeUeA0VbqOlvKKHmazP4tPWbYS P5AFdpfKEvvF3kXFqrcmHzBFSSXcEpcBUaCL1oKQ0y MKCiOOSpOoRsLFZESN0BFDOtCZWuxISlXDNwLCDVYP7NTSexSBM5ERIdrcOfwJAzPExeYQ2XUUKwraNy MzIgMCBSDQo+Mc4MON5kq6YhFCwnMHKkKB6pex9BFBiIKoGlA3L9vBXpL9I0KMdrTm4ZHMPoDSLnPyYq KNBIWJyvNG7TPS5bxpB4RD9IiHCcBCFnAARnuUViKC x1Z10orCXsTBccTN4KHPY+Greta+Wr1DOWMcJEMuLRAwGjDrUEEMSuXsX2DsR2BKf7VyW5OgPN22gAoqwr RcHKwzWB7UOA4nMWApTOGZCE8HkTUbjI6fcyPpAeDlLEHFAyCyK21ieORzHHEgLTPgIEYjOj2KZHGaC2 WbkbJpyEiyfoDaHYEiBEPIHY2TNTowcpCrkVKecUxd BS50hMaxFA0JYg1BOfGfKO1php6DrUMrQg2KDTQgWW9UTLAoMHMfLFLuNKU8COGeRfShKQnlAMSyHKZa TLV0OTEsFEZyKP3WEfBwRZEpWvQkXrebMHDsRYTjfd0DQHYjZMTfFhXnMuTgKTXyBGVvROhtBIMnODOx ZNJ8RVQtJRGdSC8IHbMlLVAqKLPsESYkTTRmPUBbxa 2CPUMoEBWqASZqAJMhKFMlTCRtREqiXLBtWLG0NNFcOJZjHDPkDD8SDzOfMBTgURH9KUhkGYDhJQSacg 2AKFDrUKKgYITtEwEoZBYiDDMmGYjdGPNbYYE0FuRiSFSxNBMuMN6QTjOwOAOgWJUbMlkzVEUcPRArba 8EPTZpVJGoWoPoJNUiHYJyFLViADytCIQyPML5Tpz7 ODOtXTLkFH4TIiKlRYOaJSQ2IBEcNXDgWHTgui6KQQIeRGMfYPlvXQEkBFShUKXuHWzjWMGlPZT5YWYp CGFwLKAaSG7EPyIrCXDkIQb7MFVdGQGkEYHiye7TARRtGRMqHKL1BlJvOAJfMJTiDSjkQTVhUEGbXnZq CCLsUUDlIL8BOvMxPKYnJoAxTGfxWYEjZEZcft2HWQ MwZUNhWIWlYEAyFTObZGJfGJznKYYlFSEpSzX8GBZfZKRiFM2UJmVtBGFvRvH2CqjqCNGhEVUlid7BTH RyXVKsUoi9LyDsBDDxQIMhELyuUYSoEKFsLOB5BWDqKMOwLN9UNpCmXJKnVsZxBfSgAKLyWHVmof1ZYW IsOKPnMQN3OfHyKJQjOCPrFDsiBBKsZBW5ZERyYPVm RLUuVP8DOyKoAEZmLlYiXDMkVQAsPNTqnu2LLDYySRFhSJA7TxOfUAZlBZSbNUpwEUIfPJS7BlSoQKBk OPDdOQ8TXfLxEBLuOooaAsNiCEJdTCHyzb3SBYApQEInXzPzUMOsNHHpQAIsKTgrBKImULH2LxB2MUNn AUWuLD0QBaQiSYezTBMIOhn3RYajL6s8DEFlFH7WC4 Mgn6IhUqZfLUQWZKchDN0tewQfSCVyVo9SF8qNAsp0VsDwDWH3JJq8YgEwL8I7TjMmFOAnMAOmIVB5Di blPq9yOILyJIG7XRb2VSd7DWLuIBa3JWTaXPOpAfIwRBifOTV7ZtScIN0MYg4NFcB9NOV7kDNmPq5WMz b5SGAGZiVjAX6CSZr= ID Date Data Source [id number] 12/21/2019 05:28:01 AM [facility] Name Value Range Interpretation Code Description Data Karoline rce(s) Supporting Document(s) Bicarbonate [Moles/volume] in Serum 25 mmol/L 22-29 [facility] Chloride [Moles/volume] in Serum or Plasma 102 mmol/L 98-107 [facility] Creatinine [Mass/volume] in Serum or Plasma 0.69 mg/dL 0.50-0.90 [facility] Glucose [Mass/volume] in Serum or Plasma 138 mg/dL 70-140 [facility] Potassium [Moles/volume] in Serum or Plasma 3.6 mmol/L 3.4-5.1 [facility] Sodium [Moles/volume] in Serum or Plasma 137 mmol/L 136-145 [facility] Urea nitrogen [Mass/volume] in Serum or Plasma 13 mg/dL 6-20 [facility] Anion gap 3 in Serum or Plasma 10 mmol/L 8-15 [facility] Osmolality of Serum or Plasma by calculation 286 mosm/kg 275-300 [facility] Creatinine/Urea nitrogen [Mass Ratio] in Serum or Plasma 19 [facility] Calcium [Mass/volume] in Serum or Plasma 8.6 mg/dL 8.6-10.0 [facility] Glomerular filtration rate/1.73 sq M pre dicted among non-blacks [Volume Rate/Area] in Serum or Plasma by Creatinine-based formula (MDRD) >6 0 [facility] Glomerular filtration rate/1.73 sq M pre dicted among blacks [Volume Rate/Area] in Serum or Plasma by Creatinine-based formula (MDRD) >60 [facility] ID Date Data Source [id number] 12/21/2019 05:28:01 AM [facility] Value Range Interpretation Code Description Data Karoline rce(s) Supporting Document(s) Phosphate [Mass/volume] in Serum or Plasma 2.9 mg/dL 2.5-4.5 [facility] ID Date Data Source [id number] 12/21/2019 05:28:01 AM [facility] Value Range Interpretation Code Description Data Karoline rce(s) Supporting Document(s) Magnesium [Mass/volume] in Serum or Plasma 1.7 mg/dL 1.6-2.6 [facility] ID Date Data Source [id number] 12/21/2019 07:47:58 AM EDT [facility] Name Value Range Interpretation Code Description Data Karoline rce(s) Supporting Document(s) Leukocytes [#/volume] in Blood by Automated count 11.6 10*3/uL 4-10 H [facility] Erythrocytes [#/volume] in Blood by Automated count 2.91 10*6/uL 4.1- 5.3 L [facility] Hemoglobin [Mass/volume] in Blood 9.6 g/dL 11.5-15.5 L [facility] Hematocrit [Volume Fraction] of Blood by Automated count 28.0 % 3 6-45 L [facility] Erythrocyte mean corpuscular volume [Entitic volume] by Auto mated count 96.1 fL 80-96 H [facility] Erythrocyte mean corpuscular hemoglobin [Entitic mass] by Automated count 33.1 pg 27-33 H [facility] Erythrocyte mean corpuscular hemoglobin concentration [Mass/volume] by Automated count 34.5 g/dL 32.0-36.0 [facility] width [Ratio] by Automated count 20.5 % 11.5-14.5 H [facility] Platelets [#/volume] in Blood by Automated count 157 10*3/uL 150-400 [facility] Differential cell count method - Blood [facility] Neutrophils/100 leukocytes in Blood by Automated count 87 % [facility] Lymphocytes/100 leukocytes in Blood by Automated count 2 % [facility] Monocytes/100 leukocytes in Blood by Automated count 9 % [facility] Neutrophils [#/volume] in Blood by Automated count 10.16 10*3/uL 1.8- 7.0 H [facility] Lymphocytes [#/volume] in Blood by Automated count 0.22 10*3/uL 1.2-4 .0 L [facility] Monocytes [#/volume] in Blood by Automated count 1.00 10*3/uL 0-0.8 H [facility] Band form neutrophils/100 leukocytes in Blood by Manual count 1 % [facility] Metamyelocytes/100 leukocytes in Blood by Manual count 1 % [facility] Band form neutrophils [#/volume] in Blood by Manual count 0.12 10*3 /uL 0-0.6 [facility] Metamyelocytes [#/volume] in Blood by Manual count 0.12 10*3/uL 0-0 H [facility] Anisocytosis [Presence] in Blood by Light microscopy [facility] Polychromasia [Presence] in Blood by Light microscopy [facility] Toxic granules [Presence] in Blood by Light microscopy [facility] ID Date Data Source [id number] 12/20/2019 10:56:39 PM [facility] Name Value Range Interpretation Code Description Data Karoline rce(s) Supporting Document(s) Glucose [Mass/volume] in Capillary blood by Glucometer 151 mg/dL 70- 140 H [facility] ID Date Data Source [id number] 12/20/2019 08:52:26 PM [facility] Name Value Range Interpretation Code Description Data Karoline rce(s) Supporting Document(s) [facility] QJUSHx7fZgGJMuLs99/ATTcmGDEsk8QiASjnGCq4SAfgWCTeJ2UkYLV8lH5eLIM3FLzGScIsRtPkHMY7 lbm [file] RFJAn5srSRnO5uWJ17SJgT9cper7vGpjD0Lq/Y [file] RMPvCujnObFpHAZsWFN5MFd8PAl7SI9nJTUDAt8+KVxuqLZulBaiPDBEIuOyGlZ5MZneIFVSDs2P ID Date Data Source [id number] 12/20/2019 08:47:15 PM T [facility] Name Value Range Interpretation Code Description Data Karoline e(s) Supporting Document(s) Leukocytes [#/volume] in Blood by Automated count 10.5 10*3/uL 4-10 H [facility] Erythrocytes [#/volume] in Blood by Automated count 3.24 10*6/uL 4.1- 5.3 L [facility] Hemoglobin [Mass/volume] in Blood 10.8 g/dL 11.5-15.5 L [facility] Hematocrit [Volume Fraction] of Blood by Automated count 31.1 % 3 6-45 L [facility] Erythrocyte mean corpuscular volume [Entitic volume] by Auto mated count 96.0 fL 80-96 [facility] Erythrocyte mean corpuscular hemoglobin [Entitic mass] by Automated count 33.3 pg 27-33 H [facility] Erythrocyte mean corpuscular hemoglobin concentration [Mass/volume] by Automated count 34.7 g/dL 32.0-36.0 [facility] width [Ratio] by Automated count 20.5 % 11.5-14.5 H [facility] Platelets [#/volume] in Blood by Automated count 154 10*3/uL 150-400 [facility] ID Date Data Source [id number] 12/20/2019 09:06:39 PM [facility] Name Value Range Interpretation Code Description Data Karoline rce(s) Supporting Document(s) Bicarbonate [Moles/volume] in Serum 27 mmol/L 22-29 [facility] Chloride [Moles/volume] in Serum or Plasma 102 mmol/L 98-107 [facility] Creatinine [Mass/volume] in Serum or Plasma 0.74 mg/dL 0.50-0.90 [facility] Glucose [Mass/volume] in Serum or Plasma 169 mg/dL 70-140 [facility] Potassium [Moles/volume] in Serum or Plasma 3.7 mmol/L 3.4-5.1 [facility] Sodium [Moles/volume] in Serum or Plasma 138 mmol/L 136-145 [facility] Urea nitrogen [Mass/volume] in Serum or Plasma 14 mg/dL 6-20 [facility] Anion gap 3 in Serum or Plasma 9 mmol/L 8-15 [facility] Osmolality of Serum or Plasma by calculation 290 mosm/kg 275-300 [facility] Creatinine/Urea nitrogen [Mass Ratio] in Serum or Plasma 19 [facility] Calcium [Mass/volume] in Serum or Plasma 8.8 mg/dL 8.6-10.0 [facility] Glomerular filtration rate/1.73 sq M pre dicted among non-blacks [Volume Rate/Area] in Serum or Plasma by Creatinine-based formula (MDRD) >6 0 [facility] Glomerular filtration rate/1.73 sq M pre dicted among blacks [Volume Rate/Area] in Serum or Plasma by Creatinine-based formula (MDRD) >60 [facility] ID Date Data Source [id number] 12/20/2019 06:47:12 PM [facility] Name Value Range Interpretation Code Description Data Karoline rce(s) Supporting Document(s) Operative Note [facility] JPHANl7iKpSPQqLy62/KGAttMQBbd6CmCCyqDQz5QThyPKTuS4YsFJK2eQ5nWUR4RRzBGaZkYfCyRRG4 lbm [file] AgICAgICAgICAgICAgICAgICAgICAgICAgICAgICAg ICAgICAgICAgICAgICAgICAgICAgICAgICAgICAgICAgICAgICAgICAgICAgICAgDQogICAgICAgICAg ICAgICAgICAgICAgICAgICAgICAgICAgICAgICAgICAgICAgICAgICAgICAgICAgICAgICAgICAgICAg ICAgICAgICAgICAgICAgICAgICAgICAgICAgICAgDQ ogICAgICAgICAgICAgICAgICAgICAgICAgICAgICAgICAgICAgICAgICAgICAgICAgICAgICAgICAgIC AgICAgICAgICAgICAgICAgICAgICAgICAgICAgICAgICAgICAgICAgDQogICAgICAgICAgICAgICAgIC AgICAgICAgICAgICAgICAgICAgICAgICAgICAgICAg ICAgICAgICAgICAgICAgICAgICAgICAgICAgICAgICAgICAgICAgICAgICAgICAgICAgDQogICAgICAg ICAgICAgICAgICAgICAgICAgICAgICAgICAgICAgICAgICAgICAgICAgICAgICAgICAgICAgICAgICAg ICAgICAgICAgICAgICAgICAgICAgICAgICAgICAgIC AgDQogICAgICAgICAgICAgICAgICAgICAgICAgICAgICAgICAgICAgICAgICAgICAgICAgICAgICAgIC AgICAgICAgICAgICAgICAgICAgICAgICAgICAgICAgICAgICAgICAgICAgDQogICAgICAgICAgICAgIC AgICAgICAgICAgICAgICAgICAgICAgICAgICAgICAg ICAgICAgICAgICAgICAgICAgICAgICAgICAgICAgICAgICAgICAgICAgICAgICAgICAgICAgDQogICAg ICAgICAgICAgICAgICAgICAgICAgICAgICAgICAgICAgICAgICAgICAgICAgICAgICAgICAgICAgICAg ICAgICAgICAgICAgICAgICAgICAgICAgICAgICAgIC AgICAgDQogICAgICAgICAgICAgICAgICAgICAgICAgICAgICAgICAgICAgICAgICAgICAgICAgICAgIC AgICAgICAgICAgICAgICAgICAgICAgICAgICAgICAgICAgICAgICAgICAgICAgDQogICAgICAgICAgIC AgICAgICAgICAgICAgICAgICAgICAgICAgICAgICAg ICAgICAgICAgICAgICAgICAgICAgICAgICAgICAgICAgICAgICAgICAgICAgICAgICAgICAgICAgDQo8 C4msEIWzETKhFL3fUDj5Up7+VLyKWlFoTPA7ryFurK6ZXY1vg5RrDZxzRWPvj7GuGNa5OG1VLWRiRBve XV8ERHszse0EUBJmVMJwjMGLz3voOzMaOOZ2TALdVo roWA1KVKSxU2aphqEgNUWpAVJDNZdtRBRMDB7DYeHzB8AlxK73VIIGOm0+XCfkkiNqOkoOAgP8HEOud8 MdEXt6UY8AGCNoWdjmx7GsEnZxVFXFUSjdHJ2DITO7UYChFSPqYg2ZJBOnN798unOgWE3EXj5QEbXiGC 1ezt8MArAtRUIdOlfHBek2TMbaBM2VhDHvYHhSkMBc WUXdnqVkQq67HSPmlBDLYYT6gPB2CRNjZ3DwxNl4NU9iZP2ZPVF8OSBdAeB2RgDbLfAqBXY7LUEaEF6o SFswLI6OQCU7SEmlPKPoZXIsS1kFLtWuGDF6BcHacPavSE5FPkMnA1AvjqJlqQOdYSWkTUZNRs4+DQpl ybGkHxyTApGvLTArl0PlOTz1KA3ZVCCwAIjdYZ3QJV TidH5kESvdJX1NCbMqYvFxJENMDjQuK53ppDHySGm8W6ImGdDxNGPtMckoLBSsLVliHkSqRTUoMyVzDK ogID4+ID4+ZKvzEG2UWYfbojGwRTWnEx8IRZEkJBHcCY2qNQGqAJUqP4Q5hKpwMWGCWoHtX6lvmybrRQ 3wQCLkB255bSzsvgUmPDL2ZTYiCc0QYZHmPKJ0CFZk cIYmRYmrCOSEFFtwMB6KsJIrJQW4kP4zDFjzDZZkYIYtG9xZQdUeqUvfHY25zIkrkwZztADpNFg+Pg0K OZ8ks1OvUSp8fvNoARyyDVTmVDufWWYzCSNiPCGsNTM9KHF6WJRTDxRiDIOjJKVrMRhjTTExPRGxig5P FCShCHBjPTd2CPIoJAXbVTZyOMrbTBFhWCBtLUR2IE LyYNUqXQ4JTqLgZGQwVCWkRLghUUXmVWQnjs0VCPDaKIEhVcCxArBdQBVvTTMfNZkvZLJeKUZeMqL6YT IfVHInBA7SJfDuLNKnPMW3MrPaOVVpTVTzgn9GPXMzRMPnEuuuRjNvPGDjBVCuRFfxVPWnVMB8Upj4KW XgBTPeNB6QXuWaANYeDRl5LNKfPCQmGJUvgs9ZXSDi NFYxOBU6KuBwHPKvAOXoFPrtISZeAOE3OVBvCSSgZCAaMF3YWzEkEMMjAMciCjDlUPIuYKGjbr5AWAUk QVFnYHIwMDRgULRbHBUfQMyhVRUsLRQnLtauBTSbFOQkZN2QGlXkUAKzOVW0ZuysDEGbIRRlbs6OKZVf GRUbRFt2ANKrZOJeEBPsNJzkFENlBZLzDJo2QOLtXY PaKL2KFyKfLJOeFNQ7DlucCLVvRNNknx4XVVCzWHJbNlD1BPNdGRNvOKJeCRvqDGIjNZPqEGEhAYFvDS AsRO5JBtHoXFkwNIBSMcj8TSxoY7k7WEIySl0FE3Rpo6AgBhRmYSADZLnkMT5kjwPrCUSeFu7XC5bGOh oqIpJaMHFtPsV8PCBiGoNyTnVlXZL8UAhbMPRzNsGj If1cSIInA2Q8MFQxXLqiGiZ4KEZzJkEePZzvQAF7J9HbHOX5PjWiGR5ZLb5PJvB3QAW9wVYxFj1CSNXh CZpETiYqFH1LZXk= ID Date Data Source [id number] 12/20/2019 04:32:01 PM EDT [facility] Name Value Range Interpretation Code Description Data Karoline rce(s) Supporting Document(s) Consultation [facility] HXIRQb0zJrGKEtAc48/JROhjYREtw0YoFBntLPk6ZYuxUNMdT6HvGVE1lO5qMYC1NFsJErBbDjStCLG5 lbm [file] AgICAgICAgICAgICAgICAgICAgICAgICAgICAgICAgICAgICAgICAgICAgICAgICAgICAgICAgICAgIC AgICAgICAgICAgICAgICAgICAgDQogICAgICAgICAg ICAgICAgICAgICAgICAgICAgICAgICAgICAgICAgICAgICAgICAgICAgICAgICAgICAgICAgICAgICAg ICAgICAgICAgICAgICAgICAgICAgICAgICAgICAgDQogICAgICAgICAgICAgICAgICAgICAgICAgICAg ICAgICAgICAgICAgICAgICAgICAgICAgICAgICAgIC AgICAgICAgICAgICAgICAgICAgICAgICAgICAgICAgICAgICAgICAgDQogICAgICAgICAgICAgICAgIC AgICAgICAgICAgICAgICAgICAgICAgICAgICAgICAgICAgICAgICAgICAgICAgICAgICAgICAgICAgIC AgICAgICAgICAgICAgICAgICAgICAgDQogICAgICAg ICAgICAgICAgICAgICAgICAgICAgICAgICAgICAgICAgICAgICAgICAgICAgICAgICAgICAgICAgICAg ICAgICAgICAgICAgICAgICAgICAgICAgICAgICAgICAgDQogICAgICAgICAgICAgICAgICAgICAgICAg ICAgICAgICAgICAgICAgICAgICAgICAgICAgICAgIC AgICAgICAgICAgICAgICAgICAgICAgICAgICAgICAgICAgICAgICAgICAgDQogICAgICAgICAgICAgIC AgICAgICAgICAgICAgICAgICAgICAgICAgICAgICAgICAgICAgICAgICAgICAgICAgICAgICAgICAgIC AgICAgICAgICAgICAgICAgICAgICAgICAgDQogICAg ICAgICAgICAgICAgICAgICAgICAgICAgICAgICAgICAgICAgICAgICAgICAgICAgICAgICAgICAgICAg ICAgICAgICAgICAgICAgICAgICAgICAgICAgICAgICAgICAgDQogICAgICAgICAgICAgICAgICAgICAg ICAgICAgICAgICAgICAgICAgICAgICAgICAgICAgIC AgICAgICAgICAgICAgICAgICAgICAgICAgICAgICAgICAgICAgICAgICAgICAgDQogICAgICAgICAgIC AgICAgICAgICAgICAgICAgICAgICAgICAgICAgICAgICAgICAgICAgICAgICAgICAgICAgICAgICAgIC AgICAgICAgICAgICAgICAgICAgICAgICAgICAgDQo8 W1lkJXRgLLTpVU0rQCn1Qt9+DToCOvEnBHC2eaUrvU7CVF8dq9WyOVdzSRTkd6XvLQd2CP0PGFZcIKst EJ1CIYqjpy0KMUZgFIYzcKOXm3ktCtOpUTK1PJXiHwpoDK5DLZMxP7wwjsYsMZMySZODCYhrARSZDIsi RAMGFKRiIFYzPnNxRqYmLLHaZN7KRUOoU781ilHqPV 1OWn6VElZyWJ5nhi4HMrEdOMHlQvfYGug0ZLeyWH7ZwXVhjOSeHtTnYCKSEqXnV4syk7DuDsLvDMYLDJ xwIW4Gj1PcrNSyQDd+Br5OVN4bg6YtRCtoEvFeNK5zuu3BWScFGqGeB4IqzGomVROqabI2yTObVVO0PS IwhKFutY7bYVRGPFQwxBnmvq0tDL3FOUI7VUCiThE3 QtXnMaTjOPb7IBXgLN3gRAdtTV4LQGO0DXquKATeMFIfW5tDZvNnBQH8FaBapPsdES9UVjLnQ9CwmdVv dCAzNSAwIFINCj4+EDoqeuZuPahVToC8DWWim5TiQXk5MR6HFXIlDOswKJ5WOUUcgV9hRMoxVU7RDhZz ClFqISBZLxWyJ27wnCGjHPg1M8SpHuYnQXUyOclvVM MgPDwvTmFtZXMgWyBdDQogID4+ID4+GFftZS0UHAwnvsOhOZMwVs6CALKyVGImCZ3iZEBmXTRvY4Z0aU xpUJTDBeLyI7lqkrjnHI1vBBKnO668kHpvylXmMNS7YRQiUi6RKOXtXUQ0PTWmiYEfYoFiCIKOFOosRG 2ReXYuBIB9qW9zJZerJHSfNNPoQ6nTXtRycBkeIO40 bGwgbnVsbCBdDQo+Vn5QRJ4mq4LgVFo6zpKlZZikTOI8GKdvMVGmAAUdXEPhOGH3UXR4YWNPHxAuZWOo GWPnWEbyCBTxIGRefu0TRQDaMLJ0JkuzWOXbJLJmZFLnMWbmKSYkBDK2CSggFFSpYUWvHF6PLcJmSTUw CFRmUXatGPYrAQMurf2JODPoICSaUuT7KGSfAJWiCY DmYSzsFYRuWDVeRVk4JNLzDPTmOJ8MQyYqPROmOHZ1ROHhWDIxZXNdmg6FCUEmTOMqVwk0XWSgMKHaFW FdOXdwHRToXHR4HNSwDKUgXUQiNL8VOoWqDXRaVGhrOLZuXVDrFGVmla5HCZZbMAMkFhOrDQNfYOYzTJ CzKJncHTYbZLOpGdS6CVWcSHYxCB8VMtKbVWZoYZXk OIDxSROjJNYddp4UJNMlEYLfXYZ9OdFkAEXgWFTjPIuuVAWlQTX6InV0AUCpHCSqOD7OKwEkUXCiGLM9 SBUfJHCiLUNrqe5MDYDvLIYrLLN7QkUxXPDyBSRdJSvqITPnPEB0ISK9LKIjVASjMR7XVaGnBVZbXEU4 OKmvZWFqFJZrhf8TAZSwEYQsDbwsMZIfTXAeSTYaXK teOQIfAXZ0JVH8ANYwQAWzCR6VKbKsTBUxFbeuHxAjTJGkRMTnyz2NIWDvJVMeTUT5QXDlKHTwKVQpUX myYROuTKY2ERu3PXIvAJVoZA5KBwIkSILyTETuIvPeBDGpTLNljd5KMKWcDNP2ITU5YQSjUXKkWOUzNS kxCXUkLMGoAyE9RMYcJJRwXB0THrTaCFCkWEV2BbLx OZWkZIHkmc3GVBHnAVH9VkzaAXUuJUNnBOJzOHzyHDDzKZDoQMTkITBwHZHwBO3OWhEwVHKyHSTjFdEa JBGlAJKuuw6BTUYzAJH2QeA0BDBcSEEzQUErVEsxPDZnRKLkKpC8MWKiDQDcPT5SQmOsNZImMOFtNBNp ESTnDJPqud4PASCaUCR2QOKxMXJwYSGgMJQyGKucRN QnWBW3Jpl2DWYqCIRhEP0WRgCwKZCnUBF1ObUfYWFdRCJsjf0XiUXhwOomxl5WHAdKHv7SuJutSDR0OS gjAe7guZGsKrItFGRDMs1PwfXmFGElUSTMUBeqYAFfFRScWIhrPkZnYHI8TcUwRSChKQcwHKwnFCHbGn IeTUY3RpX3ShQkKCRaCIBzOJvzYmX0H1VxG6D7VQUe H9QqGJUlIQz+JQ5gWSp+Ul9Ub3LdjaY2xyHiUKu2HwZ2UG6KWRSYA6MYId== ID Date Data Source [id number] 12/20/2019 02:14:25 PM EDT [facility] Name Value Range Interpretation Code Description Data Karoline rce(s) Supporting Document(s) [facility] ospital PKTVDi2sAdACFnPtm0HlGvQiDMAgNP3wowx7J4O0qRWaP0YnsVWvg0isD8UdD8CcAMKrWIXYAC1MwSVz jb2 [file] CASE WORK AIDE/XFkClBFTKAfMk9w4X3oEZfmQK2ND6VzAUQMxaBzI+Z6ctsq497WqJIjcUPrLH2N5glb0qJeamdXVB LYDJKJjZWoqVz36Tg7NhzAl6K0CFUOBV8fNMCNGKbE [file] Nadiya+cRjTy4lq/vHL3AWmStu4Rm4SN/9IHRB+UNjiSC6JyDHwa1kXvsnsojh91t75D89MYIQnZmQHbYON TmsE307edCJ+V9Gd1YBKtTpQNl8TCCtqnzfAXjWOXW OtRGgCUbeZff8gExdHRvxVFsIcctO5OfA9nA6DxY0FUfK4mj5YfBZQEjEHh3LP6AcQApHQlIBsQ/qLrz Tjp82PDMqBPoUooEHqD3hAUjcKT9FVMjCl64pQs4xZvALiGAL2HP0qUyaI93G3yY6cDoRWHZPgErFMeW ROA4hsS8KVnEaMNnrZDohHvNTmp8O4O1lgnMlHMQxQ rVSDodlB0kjKCQ5qX6T98Md7kyKXqVYirCy+K3VuyAjLSphT71uajup71cD+8XD4W92QTBAuTWTWWPKN M0wvUU2cs0HKhMdaep+S0j6zh1qDSjbmpX8KC/3AxRgFHhehRreoCaQM8cjaeYIPDTREYUAVBF0L8hZt T+JflWlLqIXaFCuUGszNHfTrbCfM0pYCPW0EXREMhy nXOov7fhSZzx2QfwCX3fcF0uP3CrpCMPurv+8B7XuL8uY71DaZB5q401R/W2MQIArR0geAvxek3WJxud biFLJzUUsbbzvUFe4Zcw5xMQsFfxTphjuakliiVqd9IYc2odjhlU81rbTupaEShjLvGzQsT5cF79p5vj uFcAR+kD9C5cW/YprmSyN74F4d0E3Y3UxaVM24ms3z supX4qoGVh+up2bppiFwsLai/O/rDFGyWC3wMo8LiMGQpBtStgtHhXStalrRwN1oQxeJQTwSKAfk1fl0 Yph2UhjxY0mdm0iyTGkty4F9DJtayRf/vCEE/UG+UQT/F46q0XoN6ss3xdeymOBrbUxz5rfFG/057tvQ cmgTAZlwA10nR4I8CvJVqMP3QMOOTvtGrST+r1/5zR F7I99iwV9J+oCiJ/4b2d/+0//+N//aMU9/pHVP/5r//sr risk management consultant/+H/+Wf/+M///X/+xi142DjwU8hpIGrG3RK [file] 65Ef8bV1hdvlA31+5os33+USgr72V7//3po7fv/d99/29e08H4985hSTW67++rEPk423/Ou377/56tcf Am191xsy/OzDx19+/mD4h49hD7/9/oJP28d7+/jh08 zlOls8762/Up2XN/u65I+b9eXtsyWT7+2rb77/4x6sW77a9Jg//DM/e32BXz/7+N3H/+rq091zz//x7V eff/o31kJ5r5635/auwu++/7u/+/Ddp/mTwNN7m/t32bwS20a/zBfff/38g9eguy1it++/+PTVt9+8ff nh689/48fs42STS0/1158ur6/dsw5j6l/yt59/90Ve 4+dff/vF//3TP/hgLa74k336+njMf27706jRN4l8q3523nig7X6+//WHt89//k0345r0+vfFD2006qlg b/6af/dku0s7GH50+FN9+/X7y/j4/h6+/vD5l9/9mV+/3D7/gi9r2uLAm/fTn/sVgULxT312247mp/X5 bn8rpc8UK42+7iuM97i/+/asn33+/d+FyQH9aK1/9W cu8/TrDnh2e2Dx/3+9f/L8Ma8Jc+/Hub8u+MUf//Avv/vT73/457f/8r/ffvnHP/6P//bDn/77Dz/81d t3v/0f//67t1/99p9/+/aP/2n1f/zLtz/+4b09/U2bf+OP+n8z80B4D/lXv/wPRtjOpWX+/vd/82+8t+ 7DbOyc0y//GvyrZRU/nl/2kzK2iZhJ++vnrxWsJxGq S0v2H4EyI8VH2kze5Orefa9Vt/XFext/e36qMs/01w1cs6/54U9/ev723de15qrg//rzT99+/IM8hjxc LfLdhL/9UZX7j/5b6v65/5wTSThb438ubbMfv/2T533FJTUTqIN17IZ6+oc//Ptfv/3pt//+46u/Ow9v wXKV93e/58tytLjWxk+jbrbzeHp51J/+/Yc//a/f/u lzplkI9C8cO34+3+f+6dUP9/irg8m72//5/uy/++Zpyuc1Y5taT9iVU8xg1o/9zd9/+ie+cnsE/Gjrb9 5HKD++ngt5ZEkg2Fymqkzd/gM59o+uPUlK/+prAl0GT/t5x56ga/1/fvi3/5bY8xb03Ld/+fuvf/Y6we l2Lj4Ng/73n/7xL3/y6/Mm/vaH3//2X3/0ju1H/Be/ /Z//9Nt/+91v//CTKxxtr/m7P/z0/7ftyPOv/+U//wvm6cUx//h5b43w2Px/OPX9+o//2Uxani0YFITe ePGffvin//aH3/3T+/C81j8v7pgs44pa8fEek/zek5/E7//s257W165/+/cVD113Xa18PqdcFaZy5dnb /eji9kmeC//c5Awi8zM8mbt/9vbhveW/f5g/fPnps7 d7tk56s6ZVH/KgC1755oC6EZ/pZ1+D48+/+XDn5733/21/+ivIbOUU/P6qIAykFcAmMKT9wrIikDfekm CsCdaTLNyxHFRxHci3GX7PvHPnWLZpJ1M0FMTruw1nCSMfTASiyMNmZaInQNMSQT8EjMKyHX7GAXg9TZ AuRESwOsDuDEUdptC7UCTcUVKnGNLrN4AaneGqpXSg IDAgUj4+FK6em9OjIrGkZIRsLok0VK5RmBJcSX0WcLKvcQ3mnyKlV319luStDQUqDmqpy0RmXEsdYGLI EC5UOVK2MOL1TKLyFz6+TR0ee8OaVyWkBQPzMod0ZL4NrWPsb0OnDP0LG9NfUYQtUKKTTPU6p8YgFDUy krqxlrrcH8ZcXOU2aT1oSCU4MPSfYQkdNFIkLPOtEW Z8WAQnFSajKUDuQFGkTVFxPBYaUFo7fPCyEH3ZS1BpTWJbVSOZICUxisScIb7oZRuZGRSLZXIWU9KTIj EzXgn3ZrxbIZcgS1Z2UgunV4WmIX0VR0DaAUAlWZTAHAPexoKsJR1JnyVhaC7lPEyASULWTAqPVLydPy J4i19comVSRYQeUHQaCWqmZCGzNAZkAHRvJOKiABKc YWOiHTAdDV3RW1CeGHGqDXJLXVA3d7TaDJMaibstaptvMk8dmcIhGdh+LzlhZCJco3IyOCwuS7F9qEYx N2CbK7MoVP0AqQWwEMpsPDNvIWCaYXBaY953hnQvLA3+GO9dt6QxMcpwELMGVJTfBXUuOEHrQKD7ZnKi UYLfBZAkHQLzLyQ0LzMxDlCAAQKfTFF2LSk2YWGwLY GtETMaMUhlSWZjAKV0NQHfJVTnIKTiPW1xXfDnYGRpClG1AfXhVALuOYXbqbSSURElXUEwQKTvQIA9IB RgAYOwBCafIOViZKVhOET4GGMcWIMoLU3tPiFfCYVxHUObYjplYDLeNGBzrcVXGAZzQJGqGBC9YhAnHM GbSWIpYWobSJHdABDzUmn6IGMqLLEkRH4gStPkKZQs NFF3BUtmMJTgJURpckSEWEGjYVPjXCNhRuFsGXZeSGCrUUxmHEGbXBPxFrHuTIMqVSPpQG5sJbJnJLBf KFJ5HJYzURPnPAQfqfSMYUJbMAYaKHu0EJZaKPBxQUZyFTqsYDFcLAXtHXK8NHGvTBHuBY2aFfPyPRBj VNDnCOKuYOKuSBYqzmXCQCPsTHOaVCS1GUHmOIFcAP FtDVamLXEpZQXpOzw6PCIdHSDhRY8vSbAkGZNoAXI5QJYoLKHwHKTvehIGGKWyQTZ3GAY0TRUcBIWrMT VlXUzkBNEcXAQxFyC4OCVkJYZoDF6vSmTpHGWtUXN7UtLlKMPoZZYtkzDIEIOpQUGhJTJ1EkXpBJTmQC YfAMclIXAiQRXvDSTgRVN7YOX3ODBrLbAzOAewIBKA GKoYI8ZgelUyYvCXD3dqFf5qCoLeRFYJX9Wca5LnFNSiGNTDLx1+MeY0LGH0qASuWiy4TEl8JLzbHIUQ Rg== ID Date Data Source [id number] 12/20/2019 11:22:22 AM EDT [facility] Name Value Range Interpretation Code Description Data Karoline rce(s) Supporting Document(s) History and Physical [facility] UTYIKp5sUrWBDqNp27/YPZjkIJXlc4KhWHlpJCq8LCpaICYtC9OcALW9eW3nJFX0PZkEPyHrCzBeTEA0 lbm [file] AgICAgICAgICAgICAgICAgICAgICAgICAgICAgICAg VIZdQSGbFHApQURkDFMnEQXaJDEqWPVhRHDaUP4QBLRkJRTrTDOqWTGaFEAbKYYwLLWxKEHhIGQdMLWg ICAgICAgICAgICAgICAgICAgICAgICAgICAgICAgICAgICAgICAgICAgICAgICAgICAgICAgICAgICAg AVKfCFHvTIYtGI2SVRIyZXRkOBVgOUBgRMUaIRZaHM AgICAgICAgICAgICAgICAgICAgICAgICAgICAgICAgICAgICAgICAgICAgICAgICAgICAgICAgICAgIC EjWOPxEOClWWTdLSHvZLCxQWMiIE7GOQMxJJYzIAAfHZXfQMWrCWIkAIMeVGTrIVIbFUQbQGErWEFdBJ AgICAgICAgICAgICAgICAgICAgICAgICAgICAgICAg DZBxEDSnXSYyPUOyQMTiOCFzPTKxPDJbQWJpRLPnGF4ZJBPuQALiWJSmHGEoRYTjWSAnMOQqXTHgTEUk ICAgICAgICAgICAgICAgICAgICAgICAgICAgICAgICAgICAgICAgICAgICAgICAgICAgICAgICAgICAg SOQsPMJaNBEjTLQaNG0OSUNcKVFlDSKaHHIpTATjCL AgICAgICAgICAgICAgICAgICAgICAgICAgICAgICAgICAgICAgICAgICAgICAgICAgICAgICAgICAgIC GgXQKqSQVbMFSgNJFqRDVdGTIpKPEfRP6CIFEtSBOpHIKaOCBeTJSzSSBiVCPhFZQoNBWaWKStDVCtXW AgICAgICAgICAgICAgICAgICAgICAgICAgICAgICAg LIWvHLUvZFSiRQFhTTAgDVWmOXOdKARoEVXtWZAgDVNrNJ1DPMPvFDVhPHHkXXByBWVwXPFkMDJxACAl ICAgICAgICAgICAgICAgICAgICAgICAgICAgICAgICAgICAgICAgICAgICAgICAgICAgICAgICAgICAg RMLfODWeGBAyMLFpSANiKH0MBKLrOVNzCSPgMAWkGX AgICAgICAgICAgICAgICAgICAgICAgICAgICAgICAgICAgICAgICAgICAgICAgICAgICAgICAgICAgIC RoXUNsKOUbOFVeZXRzZCOnLKHmCVKxBZYvYG8LDIQmANZaXHIhYCTgAGNyADPmUNMiQPUwHDRsGEMtSA AgICAgICAgICAgICAgICAgICAgICAgICAgICAgICAg JDCoMUEmLKMnGVEqABMbLFWcOGGcEWGyCTXzIHWfCVNmXCLxSK6JQZ55pQAsm5H2KMBdJF8eopk/Pg0K TJgpbaVigDOdTM0OJbOlHU9gmj6OEoGcUU1rpv1NZAqUHfFcT2A7bLObBKAlFEBONcWcR39jOMumOo89 HFfiUEVuHdVeIIv3Tp9JVmQpM8ffKKXvRjP7DDUcFo F4GERqArJ1BJCzIkQtXDPjEMNoDPAdQCGEFRG1BGViHsGpVrVgQUHyGG2DQUXmJ839arWvMs4ZZw6SYa YdMG5ife7COflxGCQxOcbVLgs4QUbeFW8AgNZlvEMmQLSoZYQOGlGnE9pnz1SwIywdFPIMGEpxWP0Sh5 VudCAxDQo+Ux8IUB5py2ScRPveKLEvME6ylc8MGQmR BdEnD7DgmEhwIJyuRMJchWXJxSMdveLDCL2dW7shYZ4zYDDRECXyzJXhFM1sAM3gASGiYEWkHlR0UEWL HF8DMNApVZSsdXSfPGHmMCQJPM6EGSweJHE1YDBctbLmxVXtWYhsLD0YTAIlocPyCybxCCWBXQr+Pg0K KW3eu8JkKFuwHPIeXA2lhx6PMUhMEnRjB9F3aZLrM8 Y7ODvjQw1TIHEvYLCiAiNlBSSGBMklQX1XLS1nzvZ7BE4EjRZiBWEhBXAkrLBuEKf5O24lpBPuBCaoZX 0KICA+Greta+Mt3RWEHpCYDmBHNnZoEfDUDPZmZzX1OoZ4GXw6GmY5VtMZ52xMoeuyBoMZqxCG3IYZ3vOO CmLJSKYA1WcIYgzO9vjuHdYgRbPRMYCkCvI78pqIHq UZReYNZ0ATEhTf5KLFLoJ4ZimyHbnPwqakNyJNRfEDDTGU1QBJiyomEfjIXcjZpzEE74jPonRL0RIj6K ZdUzIE9eiv7ZsTJuCs8XVQD6IG6RYAGmAZNgGJMbNHQ4DYDpKwZyCJgcAMNwOJHrPNU4IFTeBFZzAG7H GhCcOIKeLEF4MjGcCVYhQEEyyt9EOZVvAOF2OritZo IbMABfZNUdTVhfPZTnAPCoXUY3AZOnOAWcCA4HPuFzBFQnMGHtCnlwJUSoFHEqcs1LNFTcDLOgBTR8Dl BuKNPrNUGmNApmLNAnSDM6IlW5QYNvRNKrKA2TKrOlICFuJEd0SVQuSIWpLHDbgw4QWYIyLXKwJAx9UV IoAILhGNUiIVbqFQWrJOCfXRh8MIYhEFMxKP1OJaCn NOBbEKS0YLjsEUUeYHLonu6LOZKuZQKbXIj9HmJgQCZhRTIlSGihZUAxWBB4Woa6CBZeQYCoGH1FCrPe KIAtPLk5KFHjZGNsWIXxds0UUAAgULMtFXW9AZWbRJMkBTFeHCbiZQUgQKMhRSW7LOXoXPTzFL9STkBl WHDiOoBsFNGsUWRiXZUscf2PAXMxNAXaOZR1JSKzUA OlWRNnXJyxCMHkMEF9LyJ9BADeWDSxIK7VIpQeVCCmMkJ9EOYrXPYdWKUbeu5RASTkGZXuLXP1EIFpMN OmUCFdXMntFPOkPLR4DuN2BHPnQSErJH6AVyVxPAGmFnI5MEvvJNWeQHSuck2ADZGeBQStWsGqOvCcAQ ChUBThPLhiDVKqKHO4EGRtXSWuABOfPP2ZQbVaKBYv Fou1EMJxUHSdHMYcxx3GBCKqFHMnHYq6OFZgIHOrTILmXGunZRRoAAA6JLq3MFNjAZEcWC8LAkVmIXCz GrccAnUcAQBeTVBvaw2TFMOpYYC5QJH7OPJoKLCuITGhBRvnLMPsEMAgSEO4MJMhQVBfHQ2QIsZjHLIn TVP8UXGfJFExZNYvqt0AVJFvKTD9ZIH9TTNwSGEpYB WkMEelKBHbQCXoIiW5HTBwAFJzUV4AZzQbJMMwOSG8WZDvTHNhWRVzmh4PJXHfPUD1DiP2RzXaUYQbCX QqDGazKFHbWPHtXKGmIWJpLNUsEI1XWtLkJVEkQHR0NvYlZDZqCKTbgl2JMMCgXPK0WWN0RkVwHPKhCT ReSXk1ojRvfNSlVOj1CV6OD2CpjqQtMXOGPi2Gk784 CLS0SKSuNb6EK1mnUe6zADTmSVDMLo0HTVa5FXTjNJDxCfPtS9DzUlGnDGH9EHPxQkGkLNdmENE4LbT+ BEq0WlSpKOMrL3HiJcIvEJJnQDT8OYX1HPWvNTC3HhAbTH3mYQDIEs8+MLroiOUybCizNFKFLjH9HiZ3 LAfpWVTBGz0T ID Date Data Source [id number] [facility] Interpret[facility] Code Description Data Karoline rce(s) Supporting Document(s) Glucose [Mass/volume] in Capillary blood by Glucometer 105 mg/dL 70- 140 [facility] ID Date Data Source [id number] [facility]2019 [facility] Interpretation Code Description Data Karoline rce(s) Supporting Document(s) Magnesium [Mass/volume] in Serum or Plasma 1.7 mg/dL 1.6-2.6 [facility] ID Date Data Source [id number] 12/20/2019 04:33:24 AM [facility] Value Range Interpretation Code Description Data Karoline rce(s) Supporting Document(s) Bicarbonate [Moles/volume] in Serum 23 mmol/L 22-29 [facility] Chloride [Moles/volume] in Serum or Plasma 101 mmol/L 98-107 [facility] Creatinine [Mass/volume] in Serum or Plasma 0.62 mg/dL 0.50-0.90 [facility] Glucose [Mass/volume] in Serum or Plasma 133 mg/dL 70-140 [facility] Potassium [Moles/volume] in Serum or Plasma 3.4 mmol/L 3.4-5.1 [facility] Hemolyzed Sodium [Moles/volume] in Serum or Plasma 135 mmol/L 136-145 L [facility] Urea nitrogen [Mass/volume] in Serum or Plasma 15 mg/dL 6-20 [facility] Anion gap 3 in Serum or Plasma 12 mmol/L 8-15 [facility] Osmolality of Serum or Plasma by calculation 284 mosm/kg 275-300 [facility] Creatinine/Urea nitrogen [Mass Ratio] in Serum or Plasma 25 [facility] Calcium [Mass/volume] in Serum or Plasma 9.4 mg/dL 8.6-10.0 [facility] Glomerular filtration rate/1.73 sq M pre dicted among non-blacks [Volume Rate/Area] in Serum or Plasma by Creatinine-based formula (MDRD) >6 0 [facility] Glomerular filtration rate/1.73 sq M pre dicted among blacks [Volume Rate/Area] in Serum or Plasma by Creatinine-based formula (MDRD) >60 [facility] ID Date Data Source [id number] 12/20/2019 04:33:24 AM [facility] Name Value Range Interpretation Code Description Data Karoline rce(s) Supporting Document(s) Phosphate [Mass/volume] in Serum or Plasma 3.4 mg/dL 2.5-4.5 [facility] ID Date Data Source [id number] 12/20/2019 06:05:01 AM [facility] Name Value Range Interpretation Code Description Data Karoline rce(s) Supporting Document(s) Leukocytes [#/volume] in Blood by Automated count 12.5 10*3/uL 4-10 H [facility] Erythrocytes [#/volume] in Blood by Automated count 3.25 10*6/uL 4.1- 5.3 L [facility] Hemoglobin [Mass/volume] in Blood 10.7 g/dL 11.5-15.5 L [facility] Hematocrit [Volume Fraction] of Blood by Automated count 31.7 % 3 6-45 L [facility] Erythrocyte mean corpuscular volume [Entitic volume] by Auto mated count 97.5 fL 80-96 H [facility] Erythrocyte mean corpuscular hemoglobin [Entitic mass] by Automated count 33.0 pg 27-33 [facility] Erythrocyte mean corpuscular hemoglobin concentration [Mass/volume] by Automated count 33.9 g/dL 32.0-36.0 [facility] width [Ratio] by Automated count 20.0 % 11.5-14.5 H [facility] Platelets [#/volume] in Blood by Automated count 188 10*3/uL 150-400 [facility] Differential cell count method - Blood [facility] Neutrophils/100 leukocytes in Blood by Automated count 90 % [facility] Lymphocytes/100 leukocytes in Blood by Automated count 1 % [facility] Monocytes/100 leukocytes in Blood by Automated count 5 % [facility] Neutrophils [#/volume] in Blood by Automated count 11.29 10*3/uL 1.8- 7.0 H [facility] Lymphocytes [#/volume] in Blood by Automated count 0.13 10*3/uL 1.2-4 .0 L [facility] Monocytes [#/volume] in Blood by Automated count 0.61 10*3/uL 0-0.8 [facility] Myelocytes/100 leukocytes in Blood by Manual count 2 % [facility] Metamyelocytes/100 leukocytes in Blood by Manual count 2 % [facility] Myelocytes [#/volume] in Blood by Manual count 0.24 10*3/uL 0-0 H [facility] Metamyelocytes [#/volume] in Blood by Manual count 0.24 10*3/uL 0-0 H [facility] Macrocytes [Presence] in Blood by Light microscopy [facility] Anisocytosis [Presence] in Blood by Light microscopy [facility] Poikilocytosis [Presence] in Blood by Light microscopy [facility] ID Date Data Source [id number] 12/20/2019 03:09:39 AM EDT [facility] Name Value Range Interpretation Code Description Data Karoline rce(s) Supporting Document(s) Glucose [Mass/volume] in Capillary blood by Glucometer 146 mg/dL 70- 140 H [facility] ID Date Data Source [id number] 12/19/2019 08:40:18 PM EDT [facility] XR ANKLE 3 OR MORE VIEWS [id number] RESU LTInterpreted by:Kim Alexis MDINDICATION: 54-year-old female [...] rce(s) Supporting Document(s) ID Date Data Source [id number] 12/19/2019 08:38:08 PM [facility] CT LOWER EXTREMITY WITHOUT CONTRAST [id number] 0FINAL [...] rce(s) Supporting Document(s) ID Date Data Source [id number] 12/19/2019 08:35:28 PM [facility] XR CHEST FRONTAL ONLY [id number] RESULTI nterpreted by:Edward Lester, MDPROCEDURE INFORMATION: Exam: XR Chest, 1 View Exam date and time: 12/19/19 08:15 PM Age: 54 years old Clinical indication: Other: Pre-operative evaluation TECHNIQUE: Imaging protocol: XR of the chest Views: 1 view. COMPARISON: CR XR CHEST FRONTAL ONLY [id number] PORTABLE 10/09/19 10:24 AM FINDINGS: Lungs: Unremarkable. [...] rce(s) Supporting Document(s) ID Date Data Source [id number] 12/20/2019 04:30:44 AM [facility] Value Range Interpretation Code Description Data Karoline rce(s) Supporting Document(s) Hemoglobin A1c/Hemoglobin.total in Blood by HPLC 6.3 % 4.0-6.0 H [facility] (NOTE)<5.7% Average risk of diabetes (ADA)5.7-6.4% Increased risk of diabetes(ADA)>/= 6.5% Diagnostic for diabetes(ADA) Glucose mean value [Mass/volume] in Blood Estimated fr om glycated hemoglobin 134 mg/dL <126 H [facility] ID Date Data Source [id number] 12/19/2019 08:58:18 PM [facility] Value Range Interpretation Code Description Data Karoline rce(s) Supporting Document(s) Prothrombin time (PT) 12.7 s 12.5-14.9 [facility] INR in Platelet poor plasma by Coagulation assay 0.95 [facility] Routine intensity oral anticoagulation I NR is typically 2.0-3.0. Target INR must be clinically individualized. ID Date Data Source [id number] 12/19/2019 09:08:13 PM [facility] Name Value Range Interpretation Code Description Data Karoline rce(s) Supporting Document(s) Bicarbonate [Moles/volume] in Serum 24 mmol/L 22-29 [facility] Chloride [Moles/volume] in Serum or Plasma 99 mmol/L 98-107 [facility] Creatinine [Mass/volume] in Serum or Plasma 0.53 mg/dL 0.50-0.90 [facility] Glucose [Mass/volume] in Serum or Plasma 168 mg/dL 70-140 H [facility] Potassium [Moles/volume] in Serum or Plasma 3.4 mmol/L 3.4-5.1 [facility] Sodium [Moles/volume] in Serum or Plasma 133 mmol/L 136-145 L [facility] Urea nitrogen [Mass/volume] in Serum or Plasma 16 mg/dL 6-20 [facility] Anion gap 3 in Serum or Plasma 10 mmol/L 8-15 [facility] Osmolality of Serum or Plasma by calculation 281 mosm/kg 275-300 [facility] Creatinine/Urea nitrogen [Mass Ratio] in Serum or Plasma 30 [facility] Calcium [Mass/volume] in Serum or Plasma 8.9 mg/dL 8.6-10.0 [facility] Glomerular filtration rate/1.73 sq M pre dicted among non-blacks [Volume Rate/Area] in Serum or Plasma by Creatinine-based formula (MDRD) >6 0 [facility] Glomerular filtration rate/1.73 sq M pre dicted among blacks [Volume Rate/Area] in Serum or Plasma by Creatinine-based formula (MDRD) >60 [facility] ID Date Data Source [id number] 12/19/2019 09:59:[address] [facility] Name Value Range Interpretation Code Description Data Karoline rce(s) Supporting Document(s) Leukocytes [#/volume] in Blood by Automated count 13.2 10*3/uL 4-10 H [facility] Confirmed Erythrocytes [#/volume] in Blood by Automated count 3.29 10*6/uL 4.1- 5.3 L [facility] Hemoglobin [Mass/volume] in Blood 10.9 g/dL 11.5-15.5 [facility] Hematocrit [Volume Fraction] of Blood by Automated count 31.5 % 3 6-45 L [facility] Erythrocyte mean corpuscular volume [Entitic volume] by Auto mated count 95.6 fL 80-96 [facility] Erythrocyte mean corpuscular hemoglobin [Entitic mass] by Automated count 33.0 pg 27-33 [facility] Erythrocyte mean corpuscular hemoglobin concentration [Mass/volume] by Automated count 34.5 g/dL 32.0-36.0 [facility] Erythrocyte distribution width [Ratio] by Automated count 20.3 % 11.5-14.5 H [facility] Platelets [#/volume] in Blood by Automated count 180 10*3/uL 150-400 [facility] Confirmed ID Date Data Source [id number] 12/19/2019 09:16:58 PM EDT [facility] Name Value Range Interpretation Code Description Data Karoline rce(s) Supporting Document(s) ABO and Rh group [Type] in Blood [facility] Blood group antibody screen [Presence] in Serum or Plasma [facility] Blood bank comment [facility] ID Date Data Source [id number] 12/18/2019 09:29:35 PM EDT [facility] Name Value Range Interpretation Code Description Data Karoline rce(s) Supporting Document(s) Progress Note [facility] [id number]/[id number] lbm [file] [id number]UcAk1LGjQxPUPECdIcDT8VIBt= ID Date Data Source [id number] 12/14/2019 06:00:18 PM EDT [facility] Name Value Range Interpretation Code Description Data Karoline rce(s) Supporting Document(s) Progress Note [facility] TDVZMa2oMeQIRwJl70/FKUfwQATze0IdKIhvOWf0GSdyWMOjU3BuFYA8uF9xSAO7VPyIBjGcBhDbUMT1 lbm [file] AwMDAwODcyMiAwMDAwMCBuDQowMDAwMDEyMTIzIDAw ZJXnUB7JHhKxFGScZXRpNobpUSYyWAEspk7VFUBjHSKgHjKhZVWfNZVyHBYvMPwlNBSbWGL0MKJ0NJGz KCTlZM8WDmVzDSAlOaUlWnJkFKFeMYBogg2ZIVLwMXIvAJK1LRBtBGGeFYDpARfxVVPsYWM5LSZ3NINj IKGdCS1YYkBhVQYwGhF9CPJfRJTuHUIscw3XIEVqWZ GbXDI5RiDtPFNbIGCpJKpaXWGnMIT5UTD1BGTeRBWmCR4FRdAsLMJoMzFxQMUdFGHfTYFtqv3BGGFgVM YuOoOlPBRgBLGaFRLtFPafFPLjQLD3NwFtXSTsIGVuGV4XWzLvBRQeFrf3XOGeAJEtEQLgwf1ZBUEwRF IaWVnpWUEpPRFdKOXoWUnbRVNiVWA3AJF2DHNbJKDv LO9OZyRxCPXdHfvlAiIbJMVtXNPntr5PPPSdGEOjPSXjVOVuRGTzECSbXNrpGMZcQCD8XpAnMAIhWFBu WO1YFyFhLDJiDAE1HWDqXDPyDKAcxn0MIKGtUCV7HWf2IsRlXMFzHTZvNLrbIXHpGNLeDVgyEYAhVUVw IL2EJiEgYVWyNUS4BNgeHNRrCTFuhu3AJMWzAUA7Eu d7TADtFITxTAJoZHnpRHUkNRBoOLIdMJRsKZWuIW6CCuHjLDMuSLHjQXBiIQPuJKJuwb8YtXBsuRabyi 9GRLoZGe3GeVgpQXS7MPcjYe7xlCWxIZDuHSQHKj5OyuTqRSKxNLYTPAikSSSbOQR1XSAkJAWiKYX7VS o3OAR3Zop0DVU2JfAqZDwuAQPzVmF7MCv2CFAaRCP1 FKTkHzX8NUg6TOKfLsatEhK2LNL9V6N+XK8pEUy+Cd3Pq0CvgpB5gyXzFYx1SmPaJm2DUQDUE6AZIp== ID Date Data Source [id number] 12/04/2019 12:25:[address] [facility] Name Value Range Interpretation Code Description Data Karoline rce(s) Supporting Document(s) Progress Note [facility] ZIVPQi2lOpBFMzSd36/DXDlkNURaq5JqPDixYVj5KLemQIVyV3QzORL5zF2kUJD1MHuVTfWpSdOiWHD1 lbm [file] AgICAgICAgICAgICAgICAgICAgICAgICAgICAgICAgICAgICAgICAgICAgICAgICAgICAgICAgICAgIC AgICAgICAgICAgICAgDQogICAgICAgICAgICAgICAg ICAgICAgICAgICAgICAgICAgICAgICAgICAgICAgICAgICAgICAgICAgICAgICAgICAgICAgICAgICAg ICAgICAgICAgICAgICAgICAgICAgICAgDQogICAgICAgICAgICAgICAgICAgICAgICAgICAgICAgICAg ICAgICAgICAgICAgICAgICAgICAgICAgICAgICAgIC AgICAgICAgICAgICAgICAgICAgICAgICAgICAgICAgICAgDQogICAgICAgICAgICAgICAgICAgICAgIC AgICAgICAgICAgICAgICAgICAgICAgICAgICAgICAgICAgICAgICAgICAgICAgICAgICAgICAgICAgIC AgICAgICAgICAgICAgICAgDQogICAgICAgICAgICAg ICAgICAgICAgICAgICAgICAgICAgICAgICAgICAgICAgICAgICAgICAgICAgICAgICAgICAgICAgICAg ICAgICAgICAgICAgICAgICAgICAgICAgICAgDQogICAgICAgICAgICAgICAgICAgICAgICAgICAgICAg ICAgICAgICAgICAgICAgICAgICAgICAgICAgICAgIC AgICAgICAgICAgICAgICAgICAgICAgICAgICAgICAgICAgICAgDQogICAgICAgICAgICAgICAgICAgIC AgICAgICAgICAgICAgICAgICAgICAgICAgICAgICAgICAgICAgICAgICAgICAgICAgICAgICAgICAgIC AgICAgICAgICAgICAgICAgICAgDQogICAgICAgICAg ICAgICAgICAgICAgICAgICAgICAgICAgICAgICAgICAgICAgICAgICAgICAgICAgICAgICAgICAgICAg ICAgICAgICAgICAgICAgICAgICAgICAgICAgICAgDQogICAgICAgICAgICAgICAgICAgICAgICAgICAg ICAgICAgICAgICAgICAgICAgICAgICAgICAgICAgIC AgICAgICAgICAgICAgICAgICAgICAgICAgICAgICAgICAgICAgICAgDQogICAgICAgICAgICAgICAgIC AgICAgICAgICAgICAgICAgICAgICAgICAgICAgICAgICAgICAgICAgICAgICAgICAgICAgICAgICAgIC ZoYCEdDPFuQJFoCMVwZFIvMIAuWWBzPJa3O5pnBJEq XDVtII8pKCm1Tl4+YMuOYiWsCNO0tdRmwQ1OUS7ks3CpDSioOQGut1FoSUi4LU2VXLCbVHoqRE6AFFgu dc6RYTTkTVRhhAUKb9tbMzAhCMN2ZYMmTaytNF0TFJFbX0qqqzUfLPZzJOUTKKzmQBXORLesTXIOGS4K IaLdS9JnzM17UHOBWt8+DQplbmRvYmoNCjIzIDAgb2 JnEWi7SD9BMRXmCpqmz5ZzUmZeXEXGSNmqBA8EGOA6PDE0JGSnPx5ONNSxJ475ksQwPU7ZUk6LXjDsEI 5mwr0RDjFlKGXgKolJYsl3EEjzZW3NfSJuRSoFpl1hfjGkkiQFq1NaobXoyFDBqdp6mEFdhZVUQMFxaP 1nBPypJB1wDXIxJU3pCB1wLFBbHWI6HvOgRXYHYZ7Z PLGeQVIcqCFeCDSaMFJSDA5ZWWlhSFX5SRZbloQriTZmQYdtGT8AJMUagwFdYpMmUBQSIIo+Kf9IYF4d o3GoXQewPLBpHH8kzn6JMApLDiKuY8N0dWQxH3D5ZQqxFh0MXETjDPHbGgOnMLFSSWnkWK9WXZ2ebkH9 JL4LqVMpUNPaJQCncAUvQQo8A00sdMHxTFjkUZ7HAK A+Greta+Cv8LXIQmCBBeKXPjNfDmZMQPVgBbT1UlN2UTh2HkF8ZnGG59rIitijTaSHazBV1YHS4tBJThMG EQNR2OaWZhwE6tzpKaNoAzCADTDfQtL89vhVOiSPCtTDZyMZEvMd7TPXSfO9CuspNquSgpemKjNDFcSZ NAFD9BYCjhspOueBTcgHveRG14wEccBN0KHf4NQsDp BX0nax3RqSKmDx9AZVRpTq6YSSMpOCKgXJRtCVC0JWGhNqNmVEiyHAExBHYcBAM1FAPpAGJiNL2IXeLd QAAePjUxHgAmMGDdDXKgef1XQNKcPGJlQiW2NcQmVGAnKVGeMIszJHZwHHCaQCU7TREwWNKvBM1PFkOp USCnIFHvCqUuQAKvQRIbeh9LHGEmLNKpJSU0HvUmRK TdFECjDQvkPAZbJOJ8ZFGdSWUcYIXaDO0EUnDaZMHvAAhcVADsLZEyXMWatv7DGYZjCLJqALU3DLPxVA YuXMKoOMdvZDSlNZW6SgPkZVGmYKPuAM6OZnXgVGJoGSMjGgKjGHOpIAHxtp5BNTDwRGGiECL0WYUfRH VqEGHaAIfrYRZyAUEhVdMaMOZsTIJoVW8XFoJjQSPj ESL0PKFtXIOpDJRyvx2OPLJmBJJbVOjqKPIrNDDoRCAtQEukRVWyAMMdWPgwJWIqFSFkTQ6KJsApYBAe WxN0KlOwPERvBMPmsg8EVGOpPEVrWqi5NeTxZVSjYRUiTAuoTGTsNYOoIDA5SFQyTOAsQP7HRzTlDYTz VsZvYLSfIDBeCMLykx1GCPMuNBFrNED8IjSrSWIrCW NlEFagVTHzDHL3LnIaNKEsMIDjNB3PFsVgPABwSyQwBHJvZWZaDKTsww3MBRGcFFXmBeA1THKgDBMfDS XeFUgqEOUyQUC5DDN6YQImGQCdIS1AUyEhIEtoIKGISur8QPfdF7i4PIDfBg3KG8Hcv3NgMlJrZXGSSZ pdYY2nyxYbUUJuVg3XN6eRSfwqQIdsR7GtOtXsU1Zj Z2J1TPDzMpMlLqG4PIgsSpC7KX3rTDT4QPR1SRKoWaXgQJQsUeu3XcN4ApKrJSjmZPL2Uwf2PpJdXH8J Pp9TOgA2PML2rDWeTz7CDtR6AgPMTcVqNE2TKRy= ID Date Data Source [id number] 12/03/2019 01:58:06 PM EDT [facility] Name Value Range Interpretation Code Description Data Karoline e(s) Supporting Document(s) Leukocytes [#/volume] in Blood by Automated count 1.8 10*3/uL 4-10 [facility] Called to and read back by Citlaly Jeff in [facility] at 1323 by 1689 Erythrocytes [#/volume] in Blood by Automated count 3.27 10*6/uL 4.1- 5.3 L [facility] Hemoglobin [Mass/volume] in Blood 10.7 g/dL 11.5-15.5 L [facility] Hematocrit [Volume Fraction] of Blood by Automated count 30.4 % 3 6-45 L [facility] Erythrocyte mean corpuscular volume [Entitic volume] by Auto mated count 92.7 fL 80-96 [facility] Erythrocyte mean corpuscular hemoglobin [Entitic mass] by Automated count 32.5 pg 27-33 [facility] Erythrocyte mean corpuscular hemoglobin concentration [Mass/volume] by Automated count 35.1 g/dL 32.0-36.0 [facility] E[facility]th[facility] distribution width [Ratio] by Automated count 16.7 % 11.5-14.5 H [facility] Platelets [#/volume] in Blood by Automated count 160 10*3/uL 150-400 [facility] Differential cell count method - Blood [facility] Neutrophils/100 leukocytes in Blood by Automated count 46 % [facility] Lymphocytes/100 leukocytes in Blood by Automated count 31 % [facility] Monocytes/100 leukocytes in Blood by Automated count 9 % [facility] Basophils/100 leukocytes in Blood by Automated count 1 % [facility] Neutrophils [#/volume] in Blood by Automated count 0.83 10*3/uL 1.8-7 .0 L [facility] Lymphocytes [#/volume] in Blood by Automated count 0.56 10*3/uL 1.2-4 .0 L [facility] Monocytes [#/volume] in Blood by Automated count 0.16 10*3/uL 0-0.8 [facility] Basophils [#/volume] in Blood by Automated count 0.02 10*3/uL 0-0.2 [facility] Nucleated erythrocytes/100 leukocytes [Ratio] in Blood by Automated count 1 /100{WBCs} 0-0 H [facility] Band form neutrophils/100 leukocytes in Blood by Manual count 2 % [facility] Myelocytes/100 leukocytes in Blood by Manual count 2 % [facility] Metamyelocytes/100 leukocytes in Blood by Manual count 9 % [facility] Band form neutrophils [#/volume] in Blood by Manual count 0.04 10*3 /uL 0-0.6 [facility] Myelocytes [#/volume] in Blood by Manual count 0.04 10*3/uL 0-0 H [facility] Metamyelocytes [#/volume] in Blood by Manual count 0.16 10*3/uL 0-0 H [facility] Anisocytosis [Presence] in Blood by Light microscopy [facility] Polychromasia [Presence] in Blood by Light microscopy [facility] Toxic granules [Presence] in Blood by Light microscopy [facility] ID Date Data Source [id number] 12/03/2019 01:59:[address] [facility] Name Value Range Interpretation Code Description Data Karoline rce(s) Supporting Document(s) Albumin [Mass/volume] in Serum or Plasma by Bromocresol green (BCG) dye binding method 3.9 g/dL 3.5-5.2 [facility] Bilirubin.total [Mass/volume] in Serum or Plasma 0.6 mg/dL <1.2 [facility] Calcium [Mass/volume] in Serum or Plasma 9.6 mg/dL 8.6-10.0 [facility] Chloride [Moles/volume] in Serum or Plasma 100 mmol/L 98-107 [facility] Creatinine [Mass/volume] in Serum or Plasma 1.01 mg/dL 0.50-0.90 H [facility] Glucose [Mass/volume] in Serum or Plasma 136 mg/dL 70-140 [facility] Alkaline phosphatase [Enzymatic activity/volume] in Serum or Plasma 68 U/L 35-104 [facility] Potassium [Moles/volume] in Serum or Plasma 3.1 mmol/L 3.4-5.1 L [facility] Protein [Mass/volume] in Serum or Plasma 6.0 g/dL 6.4-8.3 L [facility] Sodium [Moles/volume] in Serum or Plasma 134 mmol/L 136-145 L [facility] Aspartate aminotransferase [Enzymatic activity/volume] in Serum or Plasma 14 U/L <32 [facility] Urea nitrogen [Mass/volume] in Serum or Plasma 19 mg/dL 6-20 [facility] Osmolality of Serum or Plasma by calculation 282 mosm/kg 275-300 [facility] Creatinine/Urea nitrogen [Mass Ratio] in Serum or Plasma 19 [facility] Bicarbonate [Moles/volume] in Serum 25 mmol/L 22-29 [facility] Alanine aminotransferase [Enzymatic activity/volume] in Seru m or Plasma 35 U/L <33 H [facility] Anion gap 3 in Serum or Plasma 9 mmol/L 8-15 [facility] Glomerular filtration rate/1.73 sq M pre dicted among non-blacks [Volume Rate/Area] in Serum or Plasma by Creatinine-based formula (MDRD) 63 mL/min/1.73m2 >60 [facility] Glomerular filtration rate/1.73 sq M pre dicted among blacks [Volume Rate/Area] in Serum or Plasma by Creatinine-based formula (MDRD) 73 mL/min/1.73m2 >60 [facility] ID Date Data Source [id number] 11/27/2019 04:09:42 PM T [facility] Name Value Range Interpretation Code Description Data Karoline rce(s) Supporting Document(s) Platelets [#/volume] in Blood by Automated count 42 10*3/uL 150-400 L [facility] ID Date Data Source [id number] 11/27/2019 01:52:47 PM EDT [facility] Name Value Range Interpretation Code Description Data Karoline rce(s) Supporting Document(s) Albumin [Mass/volume] in Serum or Plasma by Bromocresol green (BCG) dye binding method 3.8 g/dL 3.5-5.2 [facility] Bilirubin.total [Mass/volume] in Serum or Plasma 0.8 mg/dL <1.2 [facility] Calcium [Mass/volume] in Serum or Plasma 9.5 mg/dL 8.6-10.0 [facility] Chloride [Moles/volume] in Serum or Plasma 103 mmol/L 98-107 [facility] Creatinine [Mass/volume] in Serum or Plasma 0.63 mg/dL 0.50-0.90 [facility] Glucose [Mass/volume] in Serum or Plasma 157 mg/dL 70-140 H [facility] Alkaline phosphatase [Enzymatic activity/volume] in Serum or Plasma 65 U/L 35-104 [facility] Potassium [Moles/volume] in Serum or Plasma 3.6 mmol/L 3.4-5.1 [facility] Hemolyzed Protein [Mass/volume] in Serum or Plasma 6.0 g/dL 6.4-8.3 L [facility] Sodium [Moles/volume] in Serum or Plasma 139 mmol/L 136-145 [facility] Aspartate aminotransferase [Enzymatic activity/volume] in Serum or Plasma 25 U/L <32 [facility] Urea nitrogen [Mass/volume] in Serum or Plasma 16 mg/dL 6-20 [facility] Osmolality of Serum or Plasma by calculation 292 mosm/kg 275-300 [facility] Creatinine/Urea nitrogen [Mass Ratio] in Serum or Plasma 26 [facility] Bicarbonate [Moles/volume] in Serum 23 mmol/L 22-29 [facility] Alanine aminotransferase [Enzymatic activity/volume] in Seru m or Plasma 40 U/L <33 H [facility] Anion gap 3 in Serum or Plasma 13 mmol/L 8-15 [facility] Glomerular filtration rate/1.73 sq M pre dicted among non-blacks [Volume Rate/Area] in Serum or Plasma by Creatinine-based formula (MDRD) >6 0 [facility] Glomerular filtration rate/1.73 sq M pre dicted among blacks [Volume Rate/Area] in Serum or Plasma by Creatinine-based formula (MDRD) >60 [facility] ID Date Data Source [id number] 11/27/2019 01:44:45 PM [facility] Name Value Range Interpretation Code Description Data Karoline rce(s) Supporting Document(s) ABO and Rh group [Type] in Blood [facility] Blood group antibody screen [Presence] in Serum or Plasma [facility] Blood bank comment [facility] ID Date Data Source [id number] 11/27/2019 01:40:16 PM [facility] Name Value Range Interpretation Code Description Data Karoline rce(s) Supporting Document(s) Leukocytes [#/volume] in Blood by Automated count 2.6 10*3/uL 4-10 L [facility] Erythrocytes [#/volume] in Blood by Automated count 3.50 10*6/uL 4.1- 5.3 [facility] Hemoglobin [Mass/volume] in Blood 11.4 g/dL 11.5-15.5 [facility] Hematocrit [Volume Fraction] of Blood by Automated count 33.5 % 3 6-45 L [facility] Erythrocyte mean corpuscular volume [Entitic volume] by Auto mated count 95.6 fL 80-96 [facility] Erythrocyte mean corpuscular hemoglobin [Entitic mass] by Automated count 32.6 pg 27-33 [facility] Erythrocyte mean corpuscular hemoglobin concentration [Mass/volume] by Automated count 34.1 g/dL 32.0-36.0 [facility] E[facility]th[facility] distribution width [Ratio] by Automated count 16.4 % 11.5-14.5 H [facility] Platelets [#/volume] in Blood by Automated count 22 10*3/uL 150-400 [facility] ConfirmedCalled to and read back by Camilo Mohamud RN at [phone] at [phone] by 1590 Differential cell count method - Blood [facility] Neutrophils/100 leukocytes in Blood by Automated count 83 % [facility] Lymphocytes/100 leukocytes in Blood by Automated count 13 % [facility] Monocytes/100 leukocytes in Blood by Automated count 4 % [facility] Eosinophils/100 leukocytes in Blood by Automated count 0 % [facility] Basophils/100 leukocytes in Blood by Automated count 0 % [facility] Neutrophils [#/volume] in Blood by Automated count 2.13 10*3/uL 1.8-7 .0 [facility] Lymphocytes [#/volume] in Blood by Automated count 0.34 10*3/uL 1.2-4 .0 L [facility] Monocytes [#/volume] in Blood by Automated count 0.09 10*3/uL 0-0.8 [facility] Eosinophils [#/volume] in Blood by Automated count 0.00 10*3/uL 0-0.5 [facility] Basophils [#/volume] in Blood by Automated count 0.01 10*3/uL 0-0.2 [facility] Nucleated erythrocytes/100 leukocytes [Ratio] in Blood by Automated count 0 /100{WBCs} 0-0 [facility] ID Date Data Source [id number] 11/29/2019 07:59:26 AM T [facility] [place] [place] [facility] BY 1753 Name Value Range Interpretation Code Description Data Karoline rce(s) Supporting Document(s) ID Date Data Source [id number] 11/15/2019 12:40:21 PM EDT [facility] Name Value Range Interpretation Code Description Data Karoline rce(s) Supporting Document(s) Progress Note [facility] [id number] lbm [file] [id number] ID Date Data Source [id number] 11/07/2019 02:56:37 PM EDT [facility] Name Value Range Interpretation Code Description Data Karoline rce(s) Supporting Document(s) Progress Note [facility] OXXNEl9vXiWRVzGv53/RYAniZBHfy2SlYCzsNJy8BCsiOWRxH4OtNZT0aN4dXUJ2TBiTXlTbJgMoXXOo lbm [file] ICAgICAgICAgICAgICAgICAgICAgICAgICAgICAgIC WpEKMnXNGeICBlLIYsOLBfFSFdAB2CXJCpGPYdXDKvVMAnUSBwQJZlBUFjJWBiJUSeXOFeOKUoUDKcDM AgICAgICAgICAgICAgICAgICAgICAgICAgICAgICAgICAgICAgICAgICAgICAgICAgICAgICAgICAgIC HtZP2SNAUbTRIfBPQtGIOgUMOyNWHkVFWrJYAjANBa ICAgICAgICAgICAgICAgICAgICAgICAgICAgICAgICAgICAgICAgICAgICAgICAgICAgICAgICAgICAg MOYbJSNoUPXkDRFsST6PZAJfDLTjOEHoYSMlYMLxZWAlNNWzCYRxFFKuDNZzJBZzWCByBUQtBSYgAQEw ICAgICAgICAgICAgICAgICAgICAgICAgICAgICAgIC IuKAPrGIHlKFElVIHvEEJjBLMiSVYkSA2KBOPiHHMhQCXkGLNaVTIgSZMlZTRgSTSzNCBkMNKwVTTtQY AgICAgICAgICAgICAgICAgICAgICAgICAgICAgICAgICAgICAgICAgICAgICAgICAgICAgICAgICAgIC PcQBMoTY5HKZWuWLZzLMBwMPNjSTUjZPYpDWKkBXIq ICAgICAgICAgICAgICAgICAgICAgICAgICAgICAgICAgICAgICAgICAgICAgICAgICAgICAgICAgICAg FQOgPVPjDUUlZFYxLIFtYB0PXHLoOJHuPFNlBACfMVEuWTMaLJFvWIMiSAFmIFJaVVPxPEWqRHStWXQg ICAgICAgICAgICAgICAgICAgICAgICAgICAgICAgIC GaDGEkCLYeIRVbKNAlMJIpYOCaWYXaUHEeFH2UXSNvBQZsEWHlWBNcKGUxRSQpHLGfTRXaLNYcECHrVN AgICAgICAgICAgICAgICAgICAgICAgICAgICAgICAgICAgICAgICAgICAgICAgICAgICAgICAgICAgIC AiSXTmJKGfPQ8JLUFrACSkPLTiSDVuHCIhEUBzZXKe ICAgICAgICAgICAgICAgICAgICAgICAgICAgICAgICAgICAgICAgICAgICAgICAgICAgICAgICAgICAg REZqDLGoJXYlOYUpRVInFWDqOA8QVERfUSSgLFPwGZKaDIExAWPzDKCpLBCpLXYtEUPdCLNfNGTeORXa ICAgICAgICAgICAgICAgICAgICAgICAgICAgICAgIC UsPXHcAHCkSFSoSMCdJIBiZEMoWIPlGZXtDTDhJM9FBI13bWVon5R3JRZpHR5jnop/Zd7WLTelnhFlsG OnWB6TTxSvPW3uzg1VOoOuZO1zjr4SFWmQTcMsN1P2hDGePXAgGOVKSuOwJ54vLPboDv87SMejKKJcWu GeLDn1We0BArJwX6huWZQsCqR9YNIcHgD7RYFgZmFl GXUvUTNzEQ7SJCAkF782svCwIn6AMv0PNaBxLI0zmo1OSaReTNYfEurGStd9ZCiqHX0XfBUmmLLrHWIz URHGSrCvS3klf1YgRlFgPXWTTBvrBQ0Kh6HrbFLkFYz+Ls4COM5xr4VxZLidWKDtGD1jpg5CZXoAXyTj M2RtjTnvOYUdg5ypUNThKY4acKTxHLO4RNZbnXU9BO 27OFUqL9rul06bJLRPFvCpfDO4JbZgXbQpMVItXcplHIXTBPzJNyBdY2Lrz7KwVhT0KQKfOdAjRWfsXR XvSpP0HX86aTvpDF6NWRMmJEIxGF18XIOaPTXuQh7XOr7RTpRjUH4sok4WOxMcCR6qwv8PEQpKIkNrB5 J2yZXdE3Vnjx81AR3YbHJ8pCJmXR1KdV2gJT7Wv8Dq NYMuWqJuOMLfSRJnUCOoJLEeRbMgWD2HYACpClRlcHPrHQAsCYrtMOZbIzT4NnPtSQ9DYQClTJH5EF0A FU5ZZhpoR5SMJVvhdOvoCrDRUZU/VAGCDMWCQUliBZTlM42NE3UPYDkCSkwaWInVZqnyVe9mFQh+Pg0K YJ8bo6MkHMseDfApHY3drn7OOAlTStKoH0I7iJPzR6 P6NYnhAo9XZBLiCMGqPexnINIAQNyfUG7JGD3ktzL4JJ1KnEAeATQyTLFnpOJvIJl1P20nwTIiQJudSF 0KICA+Greta+Zt6PMHHrYTHlNMSoLiRyEFFFKdNrA7TtH5RZe0XdV9HdOU81vMmndlDaWNmpNB9MHU6rKZ WuRPIHQQ1WyIQzsB0rciIbCPBnJGYWPjIbQ09ncRBc RVPwSGD5UJOfNt9WLUIiB5WbbcYavUbzclXoKSAqMSLWTI5FFKcimjBdpAIaxXphBB61xVgfBD4EJp0H JgJqCC0ztm5HeRJlWg9ORFDdZf5RBWBoANPyZMQbSMP3MUQmRgFqRGfkFZBdOUShGKO4HPKqZNRaIC0Z FrOzYVKrFpS3IBAgWXIsVXVyqx8WTELpQZJoTVggFp NhQHOpSXEtFFdkYIEmPWTpWNL0FKXiPUPyAV4FAcKeZAOvEUUjJQSbDNWrPHHzsh4LSMSdPFRkAME6VD FhTKMpDAChSBokKHPmPLQwHOa4LBSrLFYuUQ1IKjRfQVFiWJJ5HwDkYXMgHJZdjn4JAMDsTWJuFkf7Qs DgQZFsFILxDAieCMGyEJS1ZKd7XZGsFMYbAY0SVnVf CGFsXVdzUxzoWKNnIINsab0AMPMcONTgERTbPMQlFJFeSTKoMYzvFDVsARRjQPE6HUUaFOEfHB0GOmGu MXHfCQV7TWbmXJZoSEQnsg6VKBWfTYCfEEC3QNYfHCLvWXMgTOhvXHXxYHAiZydcGBVwJBTvJG6IXgMn GYAkTFS3XnxpHHNqNNYrbc7BWHRkNLOnZlX0DWGxSK XyZUHrHGqeRRXaFDIlCjJnNBOgYNAbMI7PTyBnHINnMeS4UwFdCRXsJFGknh3POTVlHWCwMDI4QyCdFB VmYTZwFLfiMSQiKLW2FpT4OHPqGAVvCP3ONbTfHFGwRqAvKlFmKSTrLBKfnb0GJHLuDKWqQOH5XdShOW AfGCBbAUfiSTYvLLG3GiW8EMOtPUPaYV8JTjTrFDTq XgM4FzaeAATmXTMaav8VVSSdCCGqTok1MqKoJFUsAUEfKWuhRPWlFSA4NAN2UHZaLJFvNA6TImPtMLNs FfvhAdicTQKcNYVxdx0HSDEkIXZfNVqnCUAaIPQgSVZcKWdjAPNkMEQ8RYf0ZPRgZPSfCF4PJrSkGFSi WzprTIBrORXiBRGuoi0LuWCmgFbwpv4DYDgTYx4EbW ecTBImDQumLm7cjAMdDwQbHENGNh7DteTxSVWlTSCVVCjcHEIfTHXsURV0IodnCAu1ACooKgDyNIIvQW WjTAo6F2OrKmxqHqM7T4ClNvHbKEN3Wxm4U6H5WcGhVyDjCnW7MTqcTLEvFJY+LU8rFAe+Hr6Xc1Xmsz Q9ieKeUCclIJL1GX8QWDIES3TXCr== ID Date Data Source [id number] 11/03/2019 10:19:16 PM EDT [facility] Name Value Range Interpretation Code Description Data Karoline rce(s) Supporting Document(s) Progress Note [facility] NHNGQq6aGkYESpCe82/JAHmlSHYhj6XyNVsbQSi4AEllYARgN4SkOPW1cB0jXJX9UKcAQiSfHoXuAEI9 lbm [file] NHqkZNLQWy9T ID Date Data Source [id number] 11/03/2019 10:19:11 PM EDT [facility] Name Value Range Interpretation Code Description Data Karoline rce(s) Supporting Document(s) Progress Note [facility] RMGIPb6tUlZPIcEx40/AFTnzDHLzg7ZpAZzcTQq8OMlzTJDjK9OtZDT8cP2eERY8LVdJHiGoFtAqDKT1 lbm [file] VMsQiEfTwTh94SDWC6kAhsMKiXLvQzwb+FnQEC/[employer] [file] TnP/YS0T+Agustín/Z+O4wNejO/Y7F2Nlbs2W/CdzY9Z3N [file] ICAgICAgICAgICAgICAgICAgICAgICAgICAgICAgIC AgICAgICAgICAgICAgICAgDQogICAgICAgICAgICAgICAgICAgICAgICAgICAgICAgICAgICAgICAgIC AgICAgICAgICAgICAgICAgICAgICAgICAgICAgICAgICAgICAgICAgICAgICAgICAgICAgICAgICAgDQ ogICAgICAgICAgICAgICAgICAgICAgICAgICAgICAg ICAgICAgICAgICAgICAgICAgICAgICAgICAgICAgICAgICAgICAgICAgICAgICAgICAgICAgICAgICAg ICAgICAgICAgDQogICAgICAgICAgICAgICAgICAgICAgICAgICAgICAgICAgICAgICAgICAgICAgICAg ICAgICAgICAgICAgICAgICAgICAgICAgICAgICAgIC AgICAgICAgICAgICAgICAgICAgDQogICAgICAgICAgICAgICAgICAgICAgICAgICAgICAgICAgICAgIC AgICAgICAgICAgICAgICAgICAgICAgICAgICAgICAgICAgICAgICAgICAgICAgICAgICAgICAgICAgIC AgDQogICAgICAgICAgICAgICAgICAgICAgICAgICAg ICAgICAgICAgICAgICAgICAgICAgICAgICAgICAgICAgICAgICAgICAgICAgICAgICAgICAgICAgICAg ICAgICAgICAgICAgDQogICAgICAgICAgICAgICAgICAgICAgICAgICAgICAgICAgICAgICAgICAgICAg ICAgICAgICAgICAgICAgICAgICAgICAgICAgICAgIC AgICAgICAgICAgICAgICAgICAgICAgDQogICAgICAgICAgICAgICAgICAgICAgICAgICAgICAgICAgIC AgICAgICAgICAgICAgICAgICAgICAgICAgICAgICAgICAgICAgICAgICAgICAgICAgICAgICAgICAgIC AgICAgDQogICAgICAgICAgICAgICAgICAgICAgICAg ICAgICAgICAgICAgICAgICAgICAgICAgICAgICAgICAgICAgICAgICAgICAgICAgICAgICAgICAgICAg ICAgICAgICAgICAgICAgDQogICAgICAgICAgICAgICAgICAgICAgICAgICAgICAgICAgICAgICAgICAg ICAgICAgICAgICAgICAgICAgICAgICAgICAgICAgIC OkGBCtWQWwRPMjJENbKCQnNIBdNZYeSWVeQEc5F0xqFRLkOWYnZM3lKBc4Au9+IOyYLhMkGRB6leEppR 8OLL4hz8VvSFlnBKXqa0YuNMf2SI8QZIZcUKfpZR2GGGcmau5URCAwPXWqrBTCd6ofHlLsAVM0ZOHtRp jwDU1VMJVfR0mqygMzVEQaCWZPMJcaYRKMNIVnCVPf KeMaKhKjPPZrTEPoIGMFPA4WLsFvX2BjxO41XQNHTh0+EGtphtMqAikYQfOyGNFcs6MvLBi9MH8QPBZq Zmtaw3MzILAaECMCVNmpIJ2HQHW3EAXvEFErWs8ZUIQwL053ujZbWM8IEv3GNyVgLI2prk8OWOLoGNOj JokHYaz8HXjpRM5XgWPoALaJre0dqhFfosWEz6Wkwp FjlRZJVP6uhOVumfXETDahhLFtfff6A5yrNH5RTTH2RXwmSPHjNiUvJZCtQXcmWKGTZRmHMxJtB6Kzy0 PjGvV2XWQtJtDhIOxdCJXsXzJ6JD33mZooKN7RWIPdQWCzCP36IBElAZIdNa3JIw7PYvKlJB5plw9QZi IgDT0cto0RTMzAVjGqB7R6zZEgI9Ucwb52QJ1HmAY5 uBSxFM5FkK9eQC7Hu9KrFOFsIwYhLLMaZZLzVMGiCMOnRiZwMN4HLMObCnRbuSSwYZYlLzajGLIoTxGc AUfpML2NPQIvXXM2DU8ULO2ZVufyP9IORFkzwAzjEcOCMDE/IWUQKLTLNMvnWUZuS17JD2AUWPcVKvlp LOwSEtiuFl2yMPz+Ct4DEH3ji9PhANd9DuMyDD7ebf 1GIFeSIhVnA8J2xXIgO1B8AKgpYg0OGTLdLNRmGafxLKIWGSliKM3IWR3icnP2WK8FjOVqEMMsIOKhvL SdOIw8U85hcBMaJKsjEU1JUDA+Greta+Vz9GSILvXEPyFJGxHgRvKCYUQaRhJ7YuQ2LWc1IbR3KsLQ29uN hdnsKcYOhtXA2NLV0oJJQnOVJOQC8OrPNyiS0wbdM4 GYJlECZBJeQjS63drVGnJBTdVYG9PXFcIk8EWLFdP0BmmlDhwSdgylHaKXMxSHMRVI9BPRghxcYyuSLd kNmaQN92cKhaJQ0LDe0WEoQrQH0deq6OzIFqFz3CORO8Fx0NMWDiUQDxOUNwQMS2DBDtOtKsAOojWTNt PSNwLZK4GTDnSMSlGS1EKnFvRYVkDQb1QrMgZWKrLY Iurg6JFNDzVSD3PAPvQbIwXTHiMIGpCSvtMTGxAMXyPBI7FBBfUYUkJX8AAkDaRHXrIZYoRHNcIQOyXC Lrzn5LGOQoILQ3AZW6QMJpGAOgJCPvXZgcGVJtQBV2QvReJJQwBMVmDH2PXoKqWQWkYUnrJocqKBBwSY Tzgq8GNDDsLKVeRHY7WOWqOYKjIERwRGhqGBTpDBPe VMQcYRXoBYYxAZ9KXzTpINRnJLK1FXApQPUlMVRnpm8MMWVnXYHwFLcjAUDbHYAyMTStFHryMXWoQBK0 VJC3NIIdNWDhCR7MYlHoDJDgMAndEgErMPSePSQvcm5WHFWfTLBbNVMzKuUlYTRrWJYuFVqyNOZrDKQ6 LDy4KERyTQGhNU7CEeCbFVIfUFq6RCQaWGRfRMYxyd 9ZPQIiLQOfESb6OuGfVSKiMJItJPfiUSGrCSBiMRW7HIXtTUCkIC0YAsQfIFIhCjWcKcmlELHjZOIufv 3SEOIbKFOwGBQmTXNsGOGlAGEgTOxpZRAhKPEtWKzaXJDsZPNrCV8AQbPlIFMbOSTlVhHdUOGfTKRcsb 3IZSAdTHK5HQM9KACxXFKiKRQnSLwzEBQcVSJzNYW6 MJTcFJEoAA6LQyZjTLLyMBNbKoKjRXUqQPApvw6RUBIfHLP4DyNsPKDsRGFmATZdEDqdHJCfEVLxBdi8 FKEhZYOnUN8XKiDjVVIjRKY2KqJsEGXiFIXugk4WLOJsHXQ8PRWvIqYuHKGqHZAaYTvvMLHwJMK6Lyb2 PEKvXMTcKT7FOwKlESKvRVI3LdWtINLnZSTaiu8HRT SiFFC7CYjcKOZwKPOzHUIeXTebZQWsGYC9QCG6XVRnTQYhZS6GHpOiFZEgSLRiKVNjOIYfDFBaqo1AKQ YlPXA6MnViGHMoGXKfQKCzZQgtJIAvJEO1UwGoJSPxJCWmSE4AQjKbXLHjUIc8GRYvGGZnSNBuex3WUZ IoDKF7Whq3AmDtUSXsVSZbYSwdCLKaOSF0ETWiXWRm HDBeWG4ZBrGhWMNnZUk6SBHqQFEuYPTpkv3QFLDoVGG3XVjwWRUqYNTsILMrCGd6ykYfgKGqIPf0ZQ7G E2EonmKcISWUPr1Sr670UPDwJLKiWb4NQ8dwLa2uEQVtZOJAHf3YHHe5ABGpNwV6INMpPGKzCYL0MVt0 YTMwYmUzNzJmNGEzMDY+OGx8EBKpEGUeKkX7QuSsNL OaGitoPkGbPHC9OpV6CBDpOd7pFQBFUj0+TDyrlNTodRgpHGOKTzQcUHi5FQdkADXUWt7B ID Date Data Source [id number] 10/30/2019 05:01:[address] [facility] Name Value Range Interpretation Code Description Data Karoline rce(s) Supporting Document(s) Progress Note [facility] WEOLMi5nWtNVFqXd87/BIUmuFCRqw6KiBKtlZOq2VDtgRZVnU0AiQLY0kY5tUTS3CYaXSzOuBcZeGBI6 lbm [file] AVirpNMvhTwgDVKBAiO2GsG1RLwnCYHNDp2L ID Date Data Source [id number] 10/25/2019 09:31:44 AM EDT [facility] Name Value Range Interpretation Code Description Data Karoline rce(s) Supporting Document(s) Progress Note [facility] VPGTLc1lQcRSKdFy70/DUYikYJCfm2HqAZhvIKo6FLpeTURxJ3OiSBX5bS2pNOW1LErJEwGwAlVeNKZm lbm [file] ICAgICAgICAgICAgICAgICAgICAgICAgICAgICAgICAgICAgICAgICAgICAgICAgICANCiAgICAgICAg ICAgICAgICAgICAgICAgICAgICAgICAgICAgICAgIC AgICAgICAgICAgICAgICAgICAgICAgICAgICAgICAgICAgICAgICAgICAgICAgICAgICAgICAgICAgIC ANCiAgICAgICAgICAgICAgICAgICAgICAgICAgICAgICAgICAgICAgICAgICAgICAgICAgICAgICAgIC AgICAgICAgICAgICAgICAgICAgICAgICAgICAgICAg ICAgICAgICAgICANCiAgICAgICAgICAgICAgICAgICAgICAgICAgICAgICAgICAgICAgICAgICAgICAg ICAgICAgICAgICAgICAgICAgICAgICAgICAgICAgICAgICAgICAgICAgICAgICAgICAgICANCiAgICAg ICAgICAgICAgICAgICAgICAgICAgICAgICAgICAgIC AgICAgICAgICAgICAgICAgICAgICAgICAgICAgICAgICAgICAgICAgICAgICAgICAgICAgICAgICAgIC AgICANCiAgICAgICAgICAgICAgICAgICAgICAgICAgICAgICAgICAgICAgICAgICAgICAgICAgICAgIC AgICAgICAgICAgICAgICAgICAgICAgICAgICAgICAg ICAgICAgICAgICAgICANCiAgICAgICAgICAgICAgICAgICAgICAgICAgICAgICAgICAgICAgICAgICAg ICAgICAgICAgICAgICAgICAgICAgICAgICAgICAgICAgICAgICAgICAgICAgICAgICAgICAgICANCiAg ICAgICAgICAgICAgICAgICAgICAgICAgICAgICAgIC AgICAgICAgICAgICAgICAgICAgICAgICAgICAgICAgICAgICAgICAgICAgICAgICAgICAgICAgICAgIC AgICAgICANCiAgICAgICAgICAgICAgICAgICAgICAgICAgICAgICAgICAgICAgICAgICAgICAgICAgIC AgICAgICAgICAgICAgICAgICAgICAgICAgICAgICAg ICAgICAgICAgICAgICAgICANCiAgICAgICAgICAgICAgICAgICAgICAgICAgICAgICAgICAgICAgICAg ICAgICAgICAgICAgICAgICAgICAgICAgICAgICAgICAgICAgICAgICAgICAgICAgICAgICAgICAgICAN Cjw/dTMgS9wioXYnrpU1H7rdLs4CTe7SDT7bu7OaZW IfJOfxrdZrKktVPfMhMBMcElqEZdc1AQlxSS5QpLKtK0YlU1AwESgiNM6TPCJbDDWmwDZfGRAaMPOwKs L8WYFlULouTY0SxLJdOVtlJLLyUUHqQZ4DPIOqU872onBcNT4QGh4UFuOvFC2mgf6RMZimXALwStgYEi q9HPskYY7PmTRyiOJbMIRbKSLCEfAkQ9uge4PeVfUq WKBIVZbhRH5Fs7KdeKXxPDr+Nn3SBL4ne3YgPNwpOKKeJB4drm7FUEpENuIyD4AdzMsbVSEft1xfQWRc QL2ziNOvQBK4HGerojGjTKSaZYVwfTfyTYOroMUcdAAvJAsBN8czXNQdIT8zDI5bDXOqCECcFrY7WDHZ JP4UZTYqGAExiKHfZNQfZSJOWK3INTakIWX8ZUJozo KsuTBvCTuqKD8FTKDzfdUzANryPZVPVLs+Dy6DBA2cb1GoTAngEUOfQR1ugn6YPWvNQfHmV3F6bDQoP3 E8LHmaAx7QZMDpOQHyRQoyXDHAOPkqQC3IPV2yaiC7XX0MqSUjYXQfBBWbdWTzXLu9Z74glWBsRUudSG 0KICA+Greta+Rh1OSWKoHFWnMSStCdWfMFRPWjGdR3Rd J5RRj2CoS8ErCS07dYkqcuFfSOnpEK3ZVM5xSEYnMFUPAT8OpUFyrU6mcwTtRDFzYJTZOuIpO32reYLv YZToSIH3FOAxBs5BMNPkT9XbnmVvwVrfrpUvEKOhPGAYMK0RTFxlkhQjuYIiwPvvXR32zUfpAT8TGz1G ZrYhBX3zkd8XpPElNm2HLNVyYp5NZAPzRKNeAASeOO Y5FVJgCmChXKolEZXjQJXaXQV4IYNbXWOaLV2BYqCkYIAiZBejLWYnQLKcZCMjhc1YCBJhWVTpUUi5ZH VjQKAcHFHjESjhYGDkZEWmVTE1UIAnMKFjYG1ISlIfWPXlKWU6LuAwLJJoONNtnw2XZZRpHTChEgS6KY RsNCRkLLVcYSvaSJOqAMY9RXX1OXBdMRXcTF2SHaZg SZPvYXXuKyEtGEFcCTFyvk9ZEVWxOMZuDXJwCLSyTDIcKPKwDWwpEAOpAUM4OEWpRCXnGMXkWP8HIiZj NNLcUIV5GsZdZXWbBMGopp8WHGFzCIZlDPa9FdQrGAVpOGXbJNndGAAxNMZ6LoE8XVEjWNFfMH9VHgOi DKNcWBi9BhHkDLAcLFYlah6NXISjRGEtYzfmGjHsAL MjYGFkPNldMIKfRTW4OXwuGCFlIPOdTR8CKwOaWDPtWHmsTZceKEUuMGNsqh3PYCSmPFZzKOKcLZQjTS FhOICeQMibVPEeOAP4IJS9DODnVGHsNV8DTbBcGDUhQjYkZizhDYZqVHQhie6RIUGpCMCrVZR6WsApUJ MrZGKuBQe3jsUbtFQgIIc4TI1SO2RmgtBrNhNXJq0L a689HKAxDKVrLp2OI6niAb4mTXWzBQVQXc8BWLm0YWMoSmF0IBVfHGOyHHOzHYT7MrBjKNB2JRGkQIUt NDA+QZrgGuRmLdgcGXHoKzVxJuNiEXo6QKRaNWFeZAG0TCM2TS0fTGIHOl9+DQpzdGFydHhyZWYNCjIw WVGfQCheXDANBp8C ID Date Data Source [id number] 10/22/2019 11:43:06 AM EDT [facility] Name Value Range Interpretation Code Description Data Karoline rce(s) Supporting Document(s) Progress Note [facility] AXRJRq8fUfJCBgCb79/TLJudBILkn3PoVSzrZSe6KWkrSBGrN3DdIVW0hV1eOTV3TIlEQjYtDuLeYVE4 lbm QzIsyKUoFxMBDgVhbZRxIzSXamIogucRObMR0IgVV0GLCvT80vQNIsXGHjM6LcTYGjXXx+Rm9FNYAfdE SpUR1QRfwB6Jkwq9s7DA9iuB8QGDORXptR6F2ESbCh7tPecxRaKlveAglWDtiIqwgk1zdlS8bZ7u+UOQ 6elws82aL5BIhgH1vsNM8/O1AvPi8JV3V/+WOcKnEx Et9/JxbbfDXftngkm+KE8xQtnm6Pn7509sYSJ+ulzjSORjqW5ePSFTARtIgmZFxRH89qh48jSsSiwWUW 7l2eTNXCpxIYTpnejOTqvRf6geAvEJi70KdEK6E5kgmaWMNVTtPjmRWNUAuooNlwVsuPoehNQ9vuhqOI dKznVMClQfWgN1jAJoWuYy3jo459dilPjRgJwm00l/ 7NMqjwnvWa79ztR5DzUtcnkY+mDb4VBsnjKy0KgtIpkXGw1IgBXvPX8Shoz6lxqyHb3ORnNHG4h8QySQ Ma8gi1Soe31SOTR/ZV4z/zOXvV0au3il+K/cB6nGI3ZxyLlhNMwgOR96nZG9IWRgGF2La3CqdDlJFd/V Kb8fAjHbp/r+rxsmaoU0Jb7qR3j/8jXfLPTfmwWEd2 bx2Z/Y6mwkwJUzF9/kRPjHAxpKEq8a91XUo6Sg3R2dQKvxgxFSnYNoZ/MCiyqcPsotFrVclInOZFMZyK /N6GD19K8Hv6tr+m93z/2aE4/L1ON7SovsaRw2w4iYQm84AYnBAjiz4e9fgnzZ2XbwgkQl7TY1eKwzFD 43p3YfvzsPV3f4aiH/r27x555C2F94TK3Gqr4kUI+v [file] 2KWBAtXE6JMLJdMUGcXRKOVbNtOULdDeIwWDPqYITG Fe2ZWsFdM1qCXtmgZ6JoZOgrBm7FUpTwN4V0oQcZhKD5NEB1LC7PWfSOUiRuQPj1Z4M6sCIyR9Y5tIdO zNP7XN3CTE5LLMZzJU8+IdLhQ5BXMLxRZJB8MB6JvAEmJP5RtRMBW6PogTKrLa9oSEWlhYjssDb+PiAv U0SVISRXTHC8OA3UyAXcWY6RxVGJK3IghAMfSy3lHK rjQoYyAO7iUW4+CY1FDZIVOpDEYwNgNQcrZGjeKXMoZEi2Q5I2ZCDuD3UZX4F5O4y3g5flbc8+IA0KIC CpU9JPKDBYJoSkXFqeEIrcSMVaXGc6H5R5ASKkQ3BHP0tbW2f4IJ0+PiANCiAgID4+DQo+Le6VZX4vz1 JhSBxkEBElVH8nky8XRLzrDJHnT3YjAJRoBXuxR0Xe wTcdOV8ANZyzWLbvZH1RCHYoMXQ2DI0+AMhuwMZqVS1GYoi/cDYkR0onzPDfOSgiwf0u69l/JnJaSK2k LmLSIR6kS7WtaEh6urZCku9HD6ngJdgqFt1+WUczBPu1NlmnaJ0ayZCtuEl7qPV0or9pXt4mFPblOAat rT7egiP1qI7tWIXqUhY2jeR5zGJ9CX3nJp8CCTJqHR blITA0ZpDOBXvdiG7oOtFbCp5xjYF3rTjbV3h3sm30Hu1kprwmBFr9NY1uHm7nOa9bRTNyt5mnkZH6WI 5zIyc+IFfuWNYbSV2qCEC4JnOWYy0YZCT3Z6s8dI8ijMB2QL4FYxCaQPMdAKSxJGJbUUFkSVKcKWJdUP AgICAgICAgICAgICAgICAgICAgICAgICAgICAgICAg ICAgICAgICAgICAgICAgICAgICAgICAgICAgICAgICAgICAgICAgICAgICAgICANCiAgICAgICAgICAg ICAgICAgICAgICAgICAgICAgICAgICAgICAgICAgICAgICAgICAgICAgICAgICAgICAgICAgICAgICAg ICAgICAgICAgICAgICAgICAgICAgICAgICAgICANCi AgICAgICAgICAgICAgICAgICAgICAgICAgICAgICAgICAgICAgICAgICAgICAgICAgICAgICAgICAgIC AgICAgICAgICAgICAgICAgICAgICAgICAgICAgICAgICAgICAgICANCiAgICAgICAgICAgICAgICAgIC AgICAgICAgICAgICAgICAgICAgICAgICAgICAgICAg ICAgICAgICAgICAgICAgICAgICAgICAgICAgICAgICAgICAgICAgICAgICAgICAgICANCiAgICAgICAg ICAgICAgICAgICAgICAgICAgICAgICAgICAgICAgICAgICAgICAgICAgICAgICAgICAgICAgICAgICAg ICAgICAgICAgICAgICAgICAgICAgICAgICAgICAgIC ANCiAgICAgICAgICAgICAgICAgICAgICAgICAgICAgICAgICAgICAgICAgICAgICAgICAgICAgICAgIC AgICAgICAgICAgICAgICAgICAgICAgICAgICAgICAgICAgICAgICAgICANCiAgICAgICAgICAgICAgIC AgICAgICAgICAgICAgICAgICAgICAgICAgICAgICAg ICAgICAgICAgICAgICAgICAgICAgICAgICAgICAgICAgICAgICAgICAgICAgICAgICAgICANCiAgICAg ICAgICAgICAgICAgICAgICAgICAgICAgICAgICAgICAgICAgICAgICAgICAgICAgICAgICAgICAgICAg ICAgICAgICAgICAgICAgICAgICAgICAgICAgICAgIC AgICANCiAgICAgICAgICAgICAgICAgICAgICAgICAgICAgICAgICAgICAgICAgICAgICAgICAgICAgIC AgICAgICAgICAgICAgICAgICAgICAgICAgICAgICAgICAgICAgICAgICAgICANCiAgICAgICAgICAgIC AgICAgICAgICAgICAgICAgICAgICAgICAgICAgICAg ICAgICAgICAgICAgICAgICAgICAgICAgICAgICAgICAgICAgICAgICAgICAgICAgICAgICAgICANCjw/ nTJvT7kmuSEfddS5N6iiMh8WJh2ZHD9me2YiSPWpRKripkSpLwhHZfHpWJKtIzeNTjy7OImdPX7JiZCp Y8LtQ5KqWLndIZ5THGOfNUEukJXxMNJyHXNcRgC9GZ UaBTtlCJ7GzLBwCRavPVRnHWEwYW7GGTXzT978clGsAD2JRn4KXcSiUD3owj9GUEdaRQCpBmaGRbe2GN saPT1LzJYtnVVvMTXnZLWAGmJeS0kzg0CkCiVtNTPYUReaON4Dx2VutNIaUGc+Tp5WUZ8oc2OrNBxbKU ZfKF4beh9OJSeKOhWwU5OhzXvqLSEsc3caEJSuXD5a mYVtEZV0HNcfwhHbBRWnRAWvnRdmNYPrlCUadEMjNVjKT2pbWHGiUH8bQo7qYTBbMBNyNgDhNRPJIZ0R WDFbHHNguMGjAEWqRRHONV0PCZhxVHF4OIUzpwWtzDTcHCnhHC8YCFUoveGhJTxtCGLUMAb+Nu7GIO7u t4FwSNpvIEUhQL4iim8OAGfNEiWhZ1W6xYPqA7S4TY mwMa7JMMShKVWjOUhdVVVURScdKQ2LAW3qstE8NH2GnGMrTCDoOUFskNGvNNn9T73keNWpPAtbNU4RLZ A+Greta+Tv0OTWNyBHLiEUUsJeWwJCRCVuTlR5VcY7XVc6JaM7FxDW89hUczxcXcWRdwAU5SUT9rUZNiHB NUDG3WoDBynC8stnOqTRQkMHKLMqLnF64rbWCnKQQe EIY8GAGpBu9RBTXvO3LmvkEggApqkvIuNCPeSFCRLM8ZFTwsueXqxNRhxGqrRE22sXtwDN5SSh6IQiSn MY4dst1HqDKrMu0EXXQkOm2ADTRyADEmZPMoTJQ0QBUfRkChGOzsSQOgHYYiEJZ8IXLpFYVwIK4YXwHq UIYeSVa4DrZbQIEwZNSpja3MORZuSPNxDRU3JUBpAJ GhWJXxSZtjLSWwMQCtGBH5GTFwXTRtMP3XTmHdHBNgLFVxFVpbJVAdHWFdbx1FKCTbQISwJfLnENBkNQ OvMIZlSNspRCRvUNZiHQTwRBTwJIHoPZ8WJbHoUJWkPDK9LZPnVSJoELKngc5DUGOcNKFpJhdbOuYsLQ OiFXSaCHynZCFxBAE9Tjr8IXSuLEShUA8KHdCrZWKu OSI3MMHeCECtBXAhif6LZTKkLNApQXP7PqJhPSLiLNYdSEsqVOOfTZL0ZGS1MAThPLXsBH7JMbPrVHPz TBW6YJIzMMUmUJUkkh2PDIBmGKSpAuP1KxQgLMZbHZJiLNroGILyMYJ2EpLlYNZfCWRtZP0KKbTsEXOt IUc2QBpiHJMvMQZqux4DBJQlCBDbZjy9YIPeRUPeOW OvSAuoCVTqUVD3Ull9FPYkHGBzZF2WKhUrNTGyUGbpNNazIADsFQBxmt2YXTDnHDBeCJRvAnMuCXZjXO MbLWj2ejLwaNTzYXq9WW7DC5QmmyOdSrIVVx1Yr596QXPdBJIgTg0XV4oyNh8qAMPrCFRFFe5IIDm1Ib PiU5IeHpBcJeG1U4SzEYFxXlHySIeoTOWfWeIxIQW+ SGaeLBUlQjN3SrL5GGzlEvH6NLSgFWAcV6S2HAVtXIU9Ez6oYVXOIx8+MEgxcFTkbOonYLJMBeM8LgEo ADxfZVAYCe8Y ID Date Data Source [id number] 10/15/2019 10:14:[address] [facility] Name Value Range Interpretation Code Description Data Karoline rce(s) Supporting Document(s) Consultation [facility] OQLPFe7rIvGFRcLz67/LKQanMHPpr5AdQMumQCi5SWkhBXJqB9CuXIK9uC0hORK3YAzEEzVcIzOjSMWh lbm [file] AgICAgICAgICAgICAgICAgICAgICAgICAgICAgICAgICAgICAgICAgICAgICAgICAgICAgICAgICAgIC AgICAgICAgICAgICAgICANCiAgICAgICAgICAgICAg ICAgICAgICAgICAgICAgICAgICAgICAgICAgICAgICAgICAgICAgICAgICAgICAgICAgICAgICAgICAg ICAgICAgICAgICAgICAgICAgICAgICAgICANCiAgICAgICAgICAgICAgICAgICAgICAgICAgICAgICAg ICAgICAgICAgICAgICAgICAgICAgICAgICAgICAgIC AgICAgICAgICAgICAgICAgICAgICAgICAgICAgICAgICAgICANCiAgICAgICAgICAgICAgICAgICAgIC AgICAgICAgICAgICAgICAgICAgICAgICAgICAgICAgICAgICAgICAgICAgICAgICAgICAgICAgICAgIC AgICAgICAgICAgICAgICAgICANCiAgICAgICAgICAg ICAgICAgICAgICAgICAgICAgICAgICAgICAgICAgICAgICAgICAgICAgICAgICAgICAgICAgICAgICAg ICAgICAgICAgICAgICAgICAgICAgICAgICAgICANCiAgICAgICAgICAgICAgICAgICAgICAgICAgICAg ICAgICAgICAgICAgICAgICAgICAgICAgICAgICAgIC AgICAgICAgICAgICAgICAgICAgICAgICAgICAgICAgICAgICAgICANCiAgICAgICAgICAgICAgICAgIC AgICAgICAgICAgICAgICAgICAgICAgICAgICAgICAgICAgICAgICAgICAgICAgICAgICAgICAgICAgIC AgICAgICAgICAgICAgICAgICAgICANCiAgICAgICAg ICAgICAgICAgICAgICAgICAgICAgICAgICAgICAgICAgICAgICAgICAgICAgICAgICAgICAgICAgICAg ICAgICAgICAgICAgICAgICAgICAgICAgICAgICAgICANCiAgICAgICAgICAgICAgICAgICAgICAgICAg ICAgICAgICAgICAgICAgICAgICAgICAgICAgICAgIC AgICAgICAgICAgICAgICAgICAgICAgICAgICAgICAgICAgICAgICAgICANCiAgICAgICAgICAgICAgIC AgICAgICAgICAgICAgICAgICAgICAgICAgICAgICAgICAgICAgICAgICAgICAgICAgICAgICAgICAgIC AgICAgICAgICAgICAgICAgICAgICAgICANCjw/eHBh D2giuTMwolI6I1rdOr8RBo8JJK7ir3PeCBXrZZuligRhAduBLvIxMHWwHyqQKsz1TZqdGZ9DxLIvA6Eb G6MsGBluBN1ALNHlPWKdoWIpEXXiXLZcRnV6QQPvEXktZD5NiGTyPOaqWQIcCLPxLvGkXBPbJBUeBZWm UBHwEFHAXYKxWRQiLjQfCINuGOYvRGctWYUAEA1OSk BtX9OfeE84LXwQGd0+GVrbqhJgYedSGqWyKPFzw3VhJIk5RR9HVUMlLykfq7XpVEWgEXENQGclZN4DQB N5YGWwTXDsNx8NNVPtC385tlJrZQ9HZq2STgVuQV1aud5IRPNlZSRkJptXUvr3XPmyQC7IqWFuDHtOz4 8wnXn6zpJizJPFwG0vIGxpOObppDQvpUuoYQYdZWPb FX1eUrBvKhOtWXG0EPJdLD5cDFtmLO3TZXF7AXlbYOQtTNFwN3lDSvAmANCxFjWbfQfbYU6MCbOrA0Zc gwTjoNN5YLQrGSEOTm2+QRhcemCmRggZDgQdHLXhv0QfURu6BN4RLFQbDDkvOX5WWXWdcV6kIMadXH2M ZuRpGDPhTZAXJuHpK10kwSBmSCk9X0KvMzEkDMVwQc lsZXMgPDwvTmFtZXMgWyBdDQogID4+ID4+GFpgIX7IDHxfpnGiMANiWy2CSAWiMIIcXL8wRZZvYFEqK8 D6xFcuDMRLJpUzM0kkqemdNZ8tITZtX691pGrhmgMiOOTbKEFqFr3UNMYeAPV8PZYnsLHfHlulRACZLZ nlEU0VzONkWJZ9sE7wVBypRGBvXOAaI3rWDwUyzLnz ZC72fIlvaqIjxTRlUGp+Tm5MJZ7ap8ZjAHq8ygUzCVdvBWQvPDneHPMfLAUmJBCwKWX0XJQ8QBKBCtNy QSSpGMIqHQtfNOLyOFFdvz7AYEGkOZWmUBv0JzCnZXLfMJRbWDejMXTxNSWtMzL0WQIdFNKzKD9EGcVk VSFnNHAjESfhKEZiOUGjhv1SGNObWSImKpqpTELcLE PwYGQjDDtpVYSqQNJfHOHhPLGuJHBgDY0TEeJtPFEgRZOlPjGiCGDhCLDsmv2NHTUoODYyPlZkWOKaPE UhWRAiNOakPUWtBUJ8SLOoVGGeOBSbXO8SZyWhHIGfYVqeYHRpZBBhKRRyex5CYRYpPLWiKhr0LtSnXT TiOXBzUAhhMJLoOTDjRWozVDFrQJTcGS1KPlMgNDHf TNZcAtUkWXSyVTBlyv1WHLOwDACjZDK8KeTvOZQfXKKlOCzyQNXuGTO6BqEpDINnLGRfMM1TMlGbWFHk TAk1NpesVUJaORXqjb9YJPSsQDRvRHGdAXMxXDYfXRCxNKcpMRXbLGA3ZIQ0TTDiAPLrSD1XQkKtPPQz VvU2ErvyQCLbCTAljt7TZPIoVYHqZNh5VUWlZDAeAA IeKUqoANYiMFScSOW9ZONzDBVfPD6TFgTiTIBiWqLjCMDaDMVeSKYodh0CYQGaOOSrTjTvGAYsUIGhJS DdVAqaDJIxHJVcZIz6QZOuCGQcTN8MWhVwQPXoJvN7DAVqDZYyTBDkfj0NXDJdDZYdKyB5NdYwCLQeAU XdRPfpLWSiJRKvNZP2NBFmJURnSI5AEbAwCIViMbK4 MSPeINUnVGWoyi4GVUJyYQKfAFNwZJSgPASgWNQtATnnDGKmCVJ9IFj4XKEbROUcJF9SWbBjKSMvImDo UGxrIDPeQMHaea0QKHJaBHFoBpD3BdVoBYPeMFXdJZmbUCRlYCV1USKeEHGrLPDnYV1FVoPtBKNcZqv2 CzyiTDHcUXXjmq4KMUQoBOIwPDH8MiRyJBLcZVJuCL ijLRUtACS1HDJ1VWKyVJTcEV4TZmLtMVYjZrj7NJRyLAKpVLKvdx4NEUItVZUkXWt7NMKsLYYxLXZhRC tcWVOvEIP7Rbo2ZLAaYERgSV4RBuAuUUPgSIK7PytaCSQiXQJfjt4BXPAsEUM6FKp4IDUuMQStZGAmPD teMNOmDCTnXItmEHXdTYLqVQ4HJzSaVAztDXTVPxk8 SIlwI4w4HFM8Uw0CI5Syx4SpDSNiPWPWOWgrIO7bviXtRQIqFu2PM6fNXdyiQFHtUmHiLSZqXYKzXrTh BJVrAFCiGMS2CvY0CVTvGo3tAEDjBFK3GSOqMGN0HnDzUpL1PREkXLP2TJbyRyi1TWT1WxHpPR0JUa7W UxU6XYX3wEAoOa3YWAUrQwTAYfMvEL3ZXCs= ID Date Data Source [id number] 10/13/2019 10:24:10 AM EDT [facility] Name Value Range Interpretation Code Description Data Karoline rce(s) Supporting Document(s) Discharge Summary [facility] EXMNIo4nRfBHRjQm34/YIHtfZNYrm6VcDFodLFs8SYdmZBJzH8LwQZF2lB1bQHR6URlZXvZaYsOjYYR5 lbm [file] AgICAgICAgICAgICAgICAgICAgICAgICAgICAgICAgICAgICAgICAgICAgICAgICAgICAgICAgICAgIC AgICAgICAgICAgICAgICAgICAgICAgICAgICAgICANCiAgICAgICAgICAgICAgICAgICAgICAgICAgIC AgICAgICAgICAgICAgICAgICAgICAgICAgICAgICAg ICAgICAgICAgICAgICAgICAgICAgICAgICAgICAgICAgICAgICAgICANCiAgICAgICAgICAgICAgICAg ICAgICAgICAgICAgICAgICAgICAgICAgICAgICAgICAgICAgICAgICAgICAgICAgICAgICAgICAgICAg ICAgICAgICAgICAgICAgICAgICAgICANCiAgICAgIC AgICAgICAgICAgICAgICAgICAgICAgICAgICAgICAgICAgICAgICAgICAgICAgICAgICAgICAgICAgIC AgICAgICAgICAgICAgICAgICAgICAgICAgICAgICAgICANCiAgICAgICAgICAgICAgICAgICAgICAgIC AgICAgICAgICAgICAgICAgICAgICAgICAgICAgICAg ICAgICAgICAgICAgICAgICAgICAgICAgICAgICAgICAgICAgICAgICAgICANCiAgICAgICAgICAgICAg ICAgICAgICAgICAgICAgICAgICAgICAgICAgICAgICAgICAgICAgICAgICAgICAgICAgICAgICAgICAg ICAgICAgICAgICAgICAgICAgICAgICAgICANCiAgIC AgICAgICAgICAgICAgICAgICAgICAgICAgICAgICAgICAgICAgICAgICAgICAgICAgICAgICAgICAgIC AgICAgICAgICAgICAgICAgICAgICAgICAgICAgICAgICAgICANCiAgICAgICAgICAgICAgICAgICAgIC AgICAgICAgICAgICAgICAgICAgICAgICAgICAgICAg ICAgICAgICAgICAgICAgICAgICAgICAgICAgICAgICAgICAgICAgICAgICAgICANCiAgICAgICAgICAg ICAgICAgICAgICAgICAgICAgICAgICAgICAgICAgICAgICAgICAgICAgICAgICAgICAgICAgICAgICAg ICAgICAgICAgICAgICAgICAgICAgICAgICAgICANCi AgICAgICAgICAgICAgICAgICAgICAgICAgICAgICAgICAgICAgICAgICAgICAgICAgICAgICAgICAgIC AgICAgICAgICAgICAgICAgICAgICAgICAgICAgICAgICAgICAgICANCjw/gNRmM3kpdGXlsjE3R7pcEm 4ETl4PFZ4zs2MwNERqANolqcNiJujCDhYgVJYqXhlX Xbd7LZwkFE7GxPHwI7MuK5XrPXjhXU6JXKUiWCPqmTRoQXWkQYWkExM7WVKyEKiaOK1VtGRsCZghREQx NIZfOdZuBONmBROjQDQhZSYjFPBDYNOiFTJmRgVaKSesWJ4Fs9NqzXE5BGb+Vf2WSS2ez1VxLNvxRPMy SX6lme4CZQeSGkSuY2CstiO3AFKgJSJeZu3HOPLbDT UmvRZzSkWdYIFVGfXlI5YwfR83BEVCSz8+CKqihlOxGhyNJlWeTYRis7KsVFx4IE6USDLtFJn8tHLiWZ dcL5uzkdhrKSB3pX6ugkgrThcvDJAzGE4pTYCbWrKEVYdejawgQYGgLRYeDC85AgUaQyGqZXY3PbVdSY 2sQJasZL1DQKJ6TVrvBHTkCUVkB4qQMwYqBLPvKrAf jUdkLE8QOiJdG1VontHdsZBoMKNyXYFETh5+JCsvhoOcJssNEnFcNAQay9FwZXf9TG3VPHLoBKodOT9A CPAyoU1sFRniOV0DWhToRKZoICNKKpYnG51ehYIuBGd6S7ZjYlKeXZWeUizxAUThWNvtLiLnSDPyAyHj DQogID4+ID4+ZWdtNS5KTXjlupAdBKOyLp9IXURuQW CjYA6gBGInLQUvK0V7zZtaPYRPSxLdO5fteyfeFF9hYXElE606kLgbqdOrQKVxOZLrGm8LZUMyBMC7KP NioHCqXrHxELUJNLxiQZ4ZmDGxHMS7mZ6xNCejLJFtAEDrY4cUQsBznOgcCK00tEmdshGvhEKeJWy+Pg 0OHU7mp9VvDCr5weZsRRoyXOL9QUwjJWTwUQWvIYXl DCZ4AIS6LLBNGyXiFLDlZLHgWPbuFPFfRUJris1XIHAwHTYqOaX9HEEhISQkHVUmAYgnJGKcJDBuUKL1 MKXnYCFdNL3YLcFpPCHtALDvTWqpZVJqFXStqk2AOVSlZCWtHec7SGFrWHXhBKOmPTjmNGFxYAB8CJE5 ZSNdQVTnES4FUaGaQIRfBYgwTuBhNWHgDFPhrt8BVG WkMGTcJUZdWILmAKGhGCKuWMwwSJFhWRNhIPB1IDRnZGEnWC4DZtAwGHSyJLS1VUjoIAPyXGDtzn4CGB LpFPIqVVMyLBXqWFYbGMYdMYqzSUYxLNF6McT4ZDYmCBCkNH5IYoNrEICkXQPtCCPjPUZcUMVkgj7UIV AdDAPvQGD4PAWqSVRuBUYuTIffFUWaVUC6MsA2DSPw FOXwLN2FWxMpRRVwIZJ2QPNdCNDqOCUohb8XAKAuTGPhAyuaWPLkVPFeRLCnALnjLNOdUBS2Hff0REUj AZTaFH5HXdEyVANeSBh4EMpjNAAqJYMikm2WGOXdWKKrCFH9QmFoOSPfIQGaTFxcMDKdHEL7EWJ4IQYq WKPfOK5YMfYuLUNrBFxhWMdyNSKoCGMwse5GZOGeVJ MdDFUyOtHmPSTpLOJeIPjvMIMuDAGyTrn0MUUwBJIwZK3ERkGsHMSmJtS4WIJbHIAnAUIfdx5LDFGxMK LeGHb1AgSkZRZhEKGbMGsnKNUlBUMeLxX0RXAiNOWoLL6UToYhXHMkSuK0ZUHfFGQeZKJlzz4BNEWiNM DyQyHzFBEzPXXuFHVrDUmnIMPsCYKxLBz1TADqZAJo IH0WRbLtBXZmIoWoDDCoFXFnWIJzgx4HIDHvPLZoNSXaCTDfOJTxCSFlVLcqJFKgXOT5Yqq2CMWgGDIx AM7FRtPqKImfDQVLWcf7ZDykS7m1OKByXK9XX8Dog6TkYaSzFHGZUMlwSJ7hzuPzKLXwMf4KT5qQOhcy YBn6SDTxRGPqJRXwJfflJaM5IVO2PutfQIW7EUXtFM 4dIBE9Wcr8U3AxHqPhLPHkHvToUqsiKiosTrW7VXagCjKdElJvTP0GFc9RPcK6CSY4dIFhYz8KJeZ1Ji YWHpAhCJ7GCBb= ID Date Data Source [id number] 10/12/2019 05:49:40 PM EDT [facility] Name Value Range Interpretation Code Description Data Karoline rce(s) Supporting Document(s) Progress Note [facility] HHFECn9lUmRNXxQa22/KRRsvDQQfn5QtILsiOId8PTolRBXaH5CaCAS3cH8lXKO7ZTsWBzLpSeWnTJB8 lbm [file] eHHARTdBGabzu1Oh5sm5lxnGRWY8BkH0g7eU8sM4XzsrShxxoTTDWze/Npvd4Q1k3xaZvkUu+OeCx/research librarian [file] FlMDRkZGJjZDliNDk+AI5oCIc+Yw4Pa4TaqfN2vpVwYMnpOVGeLH0CROADE0TTIh== ID Date Data Source [id number] 10/12/2019 09:35:[address] [facility] Name Value Range Interpretation Code Description Data Karoline rce(s) Supporting Document(s) Consultation [facility] XWZCEp7tSlRTXsDy89/AQMbqFWDcc4FcSKeyNYa0WKqmTVEvE8OzFJJ3xT7eAAW9VUdAYfQjZuSzENJ0 lbm [file] ICAgICAgICAgICAgICAgICAgICAgICAgICAgICAgIC IoPZPyZAViPMYuENFjDJ5LQQSmJMUpVNNtUWCdZJZkPCDcEWBqSAKaEERoZIFjRUMmOLLbUUMhLJBfWA QtOFFyRAVoDSBxXNXwBPOsMTLiOVZlVWGtEWTzIKInXHXwZFFuMFBhANLuVNOvGEEkCMPvLCQgOX9LNZ AgICAgICAgICAgICAgICAgICAgICAgICAgICAgICAg ICAgICAgICAgICAgICAgICAgICAgICAgICAgICAgICAgICAgICAgICAgICAgICAgICAgICAgICAgICAg HLThSGBaML4PCZMyFAJfIFSiKOSfUCEhJXUwNLLmGFStQNDjADTfEZCcVJTvAWSiYMVfMFFhTJXjMUPm ICAgICAgICAgICAgICAgICAgICAgICAgICAgICAgIC TeNHGxVPXjVDRpSUDpZBKqWM7FKCMzAJMaNGYsFBGjHIFyXVQsBQOgUAZoLVCpTBZdMRVeZMViZJCrDW AgICAgICAgICAgICAgICAgICAgICAgICAgICAgICAgICAgICAgICAgICAgICAgICAgICAgICAgICAgIA 0KICAgICAgICAgICAgICAgICAgICAgICAgICAgICAg ICAgICAgICAgICAgICAgICAgICAgICAgICAgICAgICAgICAgICAgICAgICAgICAgICAgICAgICAgICAg NLHtXYWmQJQgEM9UVWTmYGBbNWKwRTYcEDEvHQBjEURoNLCnADTuLTYiDWBsMNMzCZXeOHNoWPBwXLRo ICAgICAgICAgICAgICAgICAgICAgICAgICAgICAgIC CwVSHbBVKzCACnDQNfIYJbPYHwWJ1DEJDnGTEyYZFiTOGpPBGrKUXjXXJgGRVcZNTuSVHcWPXwMHHwVG AgICAgICAgICAgICAgICAgICAgICAgICAgICAgICAgICAgICAgICAgICAgICAgICAgICAgICAgICAgIC AdND8GTKZqVEWfMHKkGJTaWVXrHHHuLRDuITFlFVMi ICAgICAgICAgICAgICAgICAgICAgICAgICAgICAgICAgICAgICAgICAgICAgICAgICAgICAgICAgICAg BNFtDAYkLVSpIVAcUN1DUNBnIOPsNAYvRQTfFKGfNVMwLMErEVPoFMBeTANxHZGuTYTsUUEeOZLdIBKg ICAgICAgICAgICAgICAgICAgICAgICAgICAgICAgIC ZnXUPfOAFjTOVrCPYvNLWpWTLdLCXrHZ5UNB06jVSxg2O5JVXbYS1pack/Fa9YKJufpvJzqDTnLU2FSw LrCF4osf8GOuUdHJ6ekc5CMFoGIjHwX8N5gWWqBEFyVWAGMvUuT71uRFkoUg85DPemDSAlLzVzSHv4Vq 2YAcLnC8leYXFlOdG0RGPbDxQsSVggKA5Df8PceSTl DQo+Rb8JBI8kc6LyDJjkHCPxGB1jxa2WHEnORnPfS2IzraN1QXT1SQHeEu6JRIEtOQTtpEWyEFSiAUSP DsXdV7EtrB56RDGXRq9+ZUbgkdSyBbwVZdQ2SFSee6EkDIo5ED3HRBVqXEj7gERrQ96rw8YfiNLaCmtl FSUmuYDhwZPsUOZEi2OcuTVcSDTCCBZMLXH1RXnjWv 6fLMBxJER2VrAyIZLFIQ3ZNVLqWAHutDQtVALvRBLYXD0DZXpiAGT4WBGcrrBupZVzQAfnZJ5NGPVtka QgMTQgMCBSDQo+Un5LAJ8ez9PaNQccTqHjHE3ypz2VJHvTNoPpQ4G3kGIfA1N8AUyzPx9WPHSkAUPeQV QzUOZRMYzhLF7ODM3dsdT8WZ7VuVMpMJBsIULzrKKu CUx9H41otBHwQZmlNW5YNAD+Greta+Vc1EHLUjGAWbESIuBbNuKFDLImMaT3BlX4ESc9CjO8VwYU41wZou byEfOOnaVV0IYL5mMPUcUBRFVS4MnAYqkJ6zysLtJJCtMODFXdWxJ56pnIWlUSTxNRDfCKFtFq5IOCHk W0ZqxaKweAhupnCfAXPaXJYFAT7VLSbxciAodGGvlR gjAP03nBksCH6FBg3OYlVtRC9yem6BeXYxHz7SSMIiZe1EYWYjZORrIYIqMLR6UGTvDaUtEPaaCSNiDS CuWPY9UKMqHIWuWC4EAoScBWXpQWM3AjdfGQTuIIPptr7YPHOcLDXeBqM2XODqMJDuXBKtFYciDQQqVK ZeAIQ3MVVmAHOfEU2IOrKwSORaEEC0GBjiDAEuPQBz yt7PDERlOLFgUes3RwSdWRMwTLKvDEtgQFRaIJSbDmMxGTRjDOSdOC9ZJfKcRVIlKQW8RYbfWPMkWREz te6KCVYsPXJnZNG3RvNfKFDtMYPaOVxaOXQdKXN8GWX7XFLgXFMfXE4CNrGeMXXnVFJnOJucLRHhNGDh sx0AYVFaIDOhZIS0PKAlSZHyXHQrQQtzHERxDUD2VZ X1RRMsRVKcPX9HJyYoBTAoBKigNIImQRUbSQMzqn4GHUQlXJOeFoJ2JtPlDYCeIYJsEWmfXNUjHNY6KM P6TTDdKSYiJU7FJzHaAWbnQPVSVjb3IHpeA6k4UCIwCm4WU6Min3TaIRAtVFOGNLpsKG7hfiKuELQfAi 0LJ4nMRyv2TAkiQXG4SRskCKJlEMDfM6BrNNB5ZGjp UGL2MOM6VG7yQYnwSXG4AgRmSQB3QLCrKGFeGUFgWSwrVSQlALo7YkLkLfEwPI1UIa2XDcY8IIE7uJTg Rs2DItk1DG1YVTMDI5MJEp== ID Date Data Source [id number] 10/11/2019 09:51:51 PM EDT [facility] Name Value Range Interpretation Code Description Data Karoline rce(s) Supporting Document(s) [facility] ATQZXt7lKfDKGmOgp5EuCaIxPDCdFH0omaz3F9P8lQJaS3TdoDXcu4ieP9WjH7YzXKNxJIXDGD7PtIRg jb2 [file] /r1WV5353z35j/uB3Jy4M4i5448i1uUo1HCJbetjQ3 f/5M03v/wkkjdfRD+S68X3ds9/XhJ8/utv3v/z7Cvfhw8thqs7O5++/uh6q1245yXR+3e/nrxw81qmx/ PJ1d+8vLx8+Oqbj+/uh3503Mtak9oab/3mix+N5XZl7/X85Nvb7ob8TcRBcOs/zdcvHz7/zcfPv/wbH7 guhtQZ43278bZtmrb6+ns+pTiv4g4xezkQ+59/8fbl Zx/audio video technician/l82xhbaUWH//13ul2Im++/fD+n7mRnvNwfG1Ot6r9302/9e6rDy+/ePP1Z+8+++aLNx/yBD/+ x2jRdf/j+6/ef/2rt5+9+8W7z14+vvzLm1+/fXnzs/dfffjyzRevBvkb/3h7B/c/7k+4lN3kt9/jY/fq o1p90dkSv7nePce5+cu/vPv4+f0PL1/94uWyc+1EPh X5+x+lNaiI0c13+frdL9/fP/N1lC+fff7m/S/ypq3jb36+2zSpls0Ns81+yv2fn/3pj//++z9//93vXv 7tv1++/Oqrf/r87Yd/qDp5Qh3+269d770i1aobQn58k3R99368+dMfX+ZP+0/bC32UVI45RyQlegafws /lT/eJ1b///qf/eL7tHt8p8ea5/a+B35F33A93/P8C eNjdL3w/nO8ELDkRYpbG+vUXvL/6Anwc4lSmk2xy3rdS2/ci9uI2tE3zmUJXdN/w4bt//+9Hdk31xlow Og9/8+b9y6/fvn/74ZuvfzBY+8F/HTP/9S82CWwCuJ2qeaNdooxOO+kyVN5R8BKNkm+3gL459N//8g8v f/72L9/94Oyvz+jG3Dzaq+c9ChxDOkne/fjsG/zVh5 ff//Ev3/35f3/7h79x+m3SH54+f/zxVnmWm11kn/7w9cvv/uv1t//+T3/52agj441LSp+neLB//vjTf/ 18X95etCwpMo8qk46LWxc6jtzgLtm/5fNkua2EtV8V42aXyp88s37jS372+OTjy7f/57v//Gio67te1/ jkH7/25nJ0Wd1eWbm8cL2hM//r3/3o0/tK/OK777/9 ww+u8foB/tm3//Xbb//z99/+2Trf4Dqn4/d//PH/P3eN+h/+7a//9zHjhz/13xdBg4kvfKDrgsrJG/32 085nT+A3YIyCqT/87rf/8cff//n7V1749nWQEo200/7rr97/6ONBNpIf/8+/fE5943544O/+47s///W3 hg8Tw/7qyy/fvv/93mp3zN5Z0t//R+64WA0N6Ks19p f/53hDhfhMe3/OT69cUvqRLk1yxo4c7X4f/vzjpy/6ujjKCx+/X334+nnZn81Bd/EJGDdz8jPLLwfn48 /v0euzcxa8qz3/ZN1IcuOUKV8ij8CbIMGqBqSsDU9nkplaVZZfNW3zuhy5F0IqjNmcQEnAYKQuZy6saJ ZtAR2QNNJ2JPzsOESyEAWrO0AcbF7iK84xqQAfNsDo MQBZOO0RjqZ6IIH1SOC0TCZtOyTtWDAuBJ71VGTuUNVOPb0cloWfDgxSBwWwUV5ojpz8B3B6pNBhJ311 wVcemaZjRU6Ce9MmsVDdLC4FyKHgaMOgMWPtJCAnN0owb1LkMYckKWIVUg9zbhFfJpxLWoBcWA5ysgr7 U6D1zYqalvFqDPQJNGghTjyqQQ8duKkqjxbzS3RrmB WdICYbS8BnYLGhe95SGSSxBCmWEzCyQfJjHRT5TaM8LTaqHtBfNONaXHXpWYTqJU1SfYWgIGBgGFLKIQ hoIgfmZUAvrC3wkDKUg3SvH0fYPEUzWVcPYN5XOCPdCHJ7TIK0SWYnP7JprqIutZCnTLWSIEumPjidRQ PjtW5wgAixP1YhBSG5o7GfJG5UQ7MeRWKnLMWCBVJ3 d5IoPFUzsjadhpmyBoGwQTKaTXPoKZFcKM9Air0jyNPvovVtQQMVRLmpWdtiIJ9xeDmxzprzW3AcyTNk KSA+TpPoJZ8ksk4+WsTkJSBqMxt1AIAlWVrtOENuSDMgXRUaD5phIZCaOgNdQTEsSqChLR5Bn1WkzMHm Bm2pqvVeAbaEqXHfOenvTMJdURMwQWFdBySNQNXjOP KtJDBwHFJ4IEHqLKYdHYsiEUMlNHYmEEHoJDFyEBLsNE5rWgNjJEQsHqBzXeStPFYuVARgcjOSEXGnYM O5QfAaWNIpDTQsOLClDTpbMMRhNYSyHQHaPPW1YSN1FZQlScSxNHFdVCDqTBWzUKQmYGUuqwCIOPPzGQ KdWZJ4JWDmLDDoCDScUMtpWOMmKIGxDSgeYGJcZWGk TB6cJeNhHVJiBFRgPEzwQIUoWHQaegFTBFPjYUOaZQWgTUVxMENqXJWoOWzsNSCmFPClOYFyHSMnBZTe OT0sBbIoSXQrFMP5SMOfRZJiPWBymbFXMHOoVRZzMPc8MWKiYAUxIKFcCElyYFPfTFXaKBP3GNLxDNSk AW1wMxLwPCFaPYV4YwSqYCWdRLLjbmRQEVDdLSIcNR Y9SuToQIPmIYVzWBqwUUYjWZLxFYvdFVVuNSTrMN3mGkFtVWIdIAXcZZsgLQWdHUYzwhYDPTXdLRWyME EwYqHrAHInVQTgRNwpVURtLOXtXZT4NTWiXPXsUC1mLoXpACUyXKK3SBiaWRRrURDqfkTSGPMlBEDcJA lgGSHxFTHrITAwVSdxMWErQNHoABU1NDEdTXHnND0c DvTnQFEyPZUkKUCkIqE6YzDjRnFBuBXkbVhelwe6GUpaJ4k9XIAjVZsrDB0derFqRONmWbgnUf0kkWE4 TJZyUeoISq1Nc1XnglW7paGtFcKcPXC5BhAyGS8M ID Date Data Source [id number] 10/11/2019 12:52:26 PM EDT [facility] Name Value Range Interpretation Code Description Data Karoline rce(s) Supporting Document(s) Prothrombin time (PT) 12.6 s 12.5-14.9 [facility] INR in Platelet poor plasma by Coagulation assay 0.94 [facility] Routine intensity oral anticoagulation I NR is typically 2.0-3.0. Target INR must be clinically individualized. ID Date Data Source [id number] 10/11/2019 12:52:26 PM EDT [facility] Name Value Range Interpretation Code Description Data Karoline rce(s) Supporting Document(s) aPTT in Platelet poor plasma by Coagulation assay 27.5 s 24.0-33. 0 [facility] ID Date Data Source [id number] 10/08/2019 03:07:00 AM EDT [facility] [address] [place] [address] Phone #: ext- [phone] 10/08/2019 03:07 Patient: TREMAINE CAVAZOS Sex: F : 1965 Age: 54yWEIGHT:102.0 kg (M) HEIGHT:68 inches (S) BMI:34.2ALLERGIES: LatexCHIEF COMPLAINT: seizure, f1OECILSODQ: Intracranial space-occupying lesion, Seizure, HypokalemiaLAB ORDERSOrder Description [...] Seizures 2 [facility] [address] [place] [address] Phone #: ext- [phone] 10/08/2019 03:07 Patient: [...] Physician; 3 [facility] [address] [place] [address] Phone #: [phone] yoc- [phone] 10/08/2019 03:07 Patient: TREMAINE CAVAZOS RN: [id number] Sex: F : 1965 Age: 54yEKG 03:16 10/08/2019 05:44 Jordan Lo R.N. Physician;Pulse oximeter 03:16 10/08/2019 03:23 Wally(Continuous) oJrdan Hernandez R.N. Physician;Saline Lock 03:16 10/08/2019 03:24 Jordan Lo R.N. Physician;[Electronically signed by David Lo R.N. (07:15 10/08/2019)][Electronically signed by Jordan Ch (09:22 10/11/2019)][Electronically locked by David Lo R.N. (07:15 10/08/2019)] Name Value Range Interpretation Code Description Data Karoline rce(s) Supporting Document(s) ID Date Data Source [id number] 10/08/2019 03:07:00 AM EDT [facility] 1 Medication Reconciliation Report [facility] [address] [place] [address] Phone #: ext- [phone] 10/08/2019 03:07 Patient: TREMAINE CAVAZOS Sex: F : 1965 Age: 54yWeight: 102.0 kgHeight/Length: 68 in.BMI: 34.2ALLERGIES: LatexThe patient's Home Medications are listed below:THE FOLLOWING MEDICATIONS NEED TO BE RECONCILED: Dexamethasone 4mg po twice daily Levetiracetam 500mg potwice daily Pbryppizat001hx twice dailyThe source(s) of the original Home [...] rce(s) Supporting Document(s) ID Date Data Source [id number] 10/08/2019 03:07:00 AM EDT [facility] 1 Medication Administration Record [facility] [address] [place] [address] Phone #: ext- [phone] 10/08/2019 03:07 Patient: TREMAINE CAVAZOS Sex: F : 1965 Age: 54yWeight: 102.0 kgHeight/Length: 68 inBMI: 34.2ALLERGIES: Latex Date/Time Medication Administered Medication OrderedStart IV NS IV NS : Bolus 500 mL, then 14834:00 10/08/2019 Dose: IV Fluids mL/hr (can be titrated David Zavala R.N. Rate: 125 mL/hr over 4 hour(s) additional physician instruction)---- Bolus: 1000 mL over 1 hour(s)Stop Dispensed: 500 mL bag07:12 10/08/2019 Site: #1 left David Pena R.N.Given ZOFRAN [IVP] (ONDANSETRON HCL) Zofran 4 mg IVP X 1 dose: 4 mg03:54 080 05/2019 Dose: 4 mg IVP (NOW x1)David oL R.N. Site: #1 left ACStart PHENYTOIN (1000MG/100ML) [...] 10/08/2019 Dose: 2 mg IVP MEDICATION, NOW)David oL R.N. Site: #1 left ACStart KCL [IVPB] KCl IVPB 10 meq/880nE01:01 10/08/2019 Dose: 10 meq IVPBDavid Lo R.N. [...] rce(s) Supporting Document(s) ID Date Data Source [id number] 10/08/2019 03:07:00 AM EDT [facility] 1 General Instructions [facility] [address] [place] [address] Phone #: ext- [phone] 10/08/2019 03:07 Patient: [...] 2 General Instructions [facility] [address] [place] [address] Phone #: ext- [phone] 10/08/2019 03:07 Patient: [...] 3 General Instructions [facility] [address] [place] [address] Phone #: ext- [phone] 10/08/2019 03:07 Patient: TREMAINE CAVAZOS Sex: F : 1965 Age: 54y Difficulty thinking, speaking, or getting your words out [id number] [employer]. [address] [place] [address]. All rights reserved. This information is not intended as asubstitute for professional medical care. Always follow your healthcare professional's instructions. You have been given the following additional information: Brain Tumor(Electronically signed by Jordan Ch, Physician 10/11/2019 09:22) Name Value Range Interpretation Code Description Data Karoline rce(s) Supporting Document(s) ID Date Data Source [id number] 10/08/2019 03:07:00 AM EDT [facility] 1 Clinical Report - Nurs[facility] [address] [place] [address] Phone #: ykh- [phone] 10/08/2019 03:07 Patient: TREMAINE CAVAZOS Sex: F : 1965 Age: 54yTRIAGEArrived by EMS. Historian: family. Accompanied by family.Acuity: LEVEL 3.Chief Complaint: POSSIBLE SEIZURE.No acute distress.This occurred just prior to arrival.EMS Treatment CAR HOP:See EMS report.SEPSIS SCREEN: SIRS Screen negative. Sepsis [...] Per Patient. BMI: 34.2. --03:10/08/19 David Lo R.N.XxbodtlccgqHzforanzeb089lx twice daily. --03:10/08/19 David Lo R.N. Dexamethasone 4mg po twice daily. --03:10/08/19 David Lo R.N. Levetiracetam 500mg potwice daily. --03:10/08/19 David Lo R.N.AllergiesLatex. --03:14 10/08/19 David Lo R.N.PROBLEMS:Seizure.Migraine Headache.Cancer. --03:10/08/19 David Lo R.N.Medication/allergy information source: the patient's family. --03:10/08/19 David Lo R.N.ADDITIONAL SURGERIES:Brain sx. --03:15 10/08/19 David Lo R.N. 2 Clinical Report - Nurs[facility] [address] [place], [place] [address] Phone #: ext- [phone] 10/08/2019 03:07 Patient: TREMAINE CAVAZOS Sex: F [...] Report - Nurses [facility] [address] [place] [address] Phone #: ext- [phone] 10/08/2019 03:07 Patient: [...] reaction andprecautions. Verbalizes understanding. --06:01 10/08/19 David oL R.N.06:02 10/08/2019 Solu-Medrol (methylPREDNISolone Sodium Succ) IVP [...] Report - Nurses [facility] [address] [place] [address] Phone #: ext- [phone] 10/08/2019 03:07 Patient: [...] David Lo R.N.DISPOSITION / DISCHARGE Transferred to [facility]. Visit overview, summary of care (CCDA), Emtala forms and Face Sheet provided to transport team and transfer facility. Transported via ambulance by supervisor hard candy with monitor. Report was given to a nurse. Report included patient's care, condition, vital signs, labs, medications and IV's. All questions were answered. Report was acknowledged and care was transferred. (Madelaine VELASQUEZ at [facility]). Patient has no belongings. --06:28 10/08/19 David [...] rce(s) Supporting Document(s) ID Date Data Source [id number] 10/08/2019 03:07:00 AM EDT [facility] 1 Clinical Report - Physicians/Mid Levels [facility] [address] [place] [address] Phone #: ext- [phone] 10/08/2019 03:07 Patient: [id number] Sex: F : 1965 Age: 54y Time [...] - Physicians/Mid Levels [facility] [address] [place] [address] Phone #: ext- [phone] 10/08/2019 03:07 Patient: [...] results Test Result [employer] (Reference) [place] [address] -- -- RESPIRATORY CARE REPORT -- ===== ---------NAME------- NUMBER SEX AGE ADMIT DISC. XRAY# F/C TYPE MACY Brown [id number] F 54 10/08/19 10/08/19 [id number] XBE E/R DATE OF : 1965 M/R# [id number] PH#: [phone] TR-06 -- LOCATION: EKG 54405 COMPLETE:10/08/19 07:37 EWW [id number] PHYSICIAN: YOSELIN WEIR Urinalysis: (LEONARD: 10/08/2019 03:15) [...] - Physicians/Mid Levels [facility] [address] [place] [address] Phone #: ext- [phone] 10/08/2019 03:07 Patient: [...] Male GFR Interprentation 20-49 yrs >60 mL/min Eplpgg24-47 yrs >56 mL/min Normal 60-69 yrs >49 mL/min Normal 70-79yrs>42 mL/min Normal 80 and above >35 mL/min Normal Female GFRInterpretation 20-39 yrs >60 mL/min Normal 40-49 yrs >58 mL/minNormal 50-59 yrs >51 mL/min Normal 60-69 yrs >45 mL/min Hwtaum03-42 yrs >39 mL/min Normal 80 and above [...] - Physicians/Mid Levels [facility] [address] [place] [address] Phone #: ext- [phone] 10/08/2019 03:07 Patient: [...] READ BACK DR CH BY: LSA DATE/TIME [id number] AMCT Head W/O Cont: (LEONARD: 10/08/2019 03:15) ( MsgRcvd 10/08/2019 05:30) Final results Exam CT HEAD W/O CONTRAST [facility] [address] [place] [address] ---------NAME--------- NUMBER SEX AGE ADMIT DISC. XRAY# F/C TYPE MACY Brown [id number] F 54 10/08/19 [id number] E/R DATE OF : 1965 M/R# [id number] #: [id number] TR-06 LOCATION: TRANSCRIBED: 10/08/19 5:[address] HEAD W/O CONTRAST [id number] COMPLETED:10/08/19 5:05 RLB [id number] Reason(s): Altered Mental Status Syncope PHYSICIAN: YOSELIN [...] - Physicians/Mid Levels [facility] [address] [place] [address] Phone #: ext- [phone] 10/08/2019 03:07 Patient: [...] CT head result. Will likely transfer to [facility] Neurology once labs and CT are [...] R) of 2mm. I have spoken with [facility] transfer Center and the Neurologist on-call wants the pt. to go to the [facility] ED. With this in mind, I have spoken with Dr. Moran (Accepting ED attending) and will get a high level ambulance for transfer. She is becoming more lucid since receiving IV Ativan and Dilantin. Critical care performed (130 minutes). Time is exclusive of separately billable procedures. Time includes: 6 Clinical Report - Physicians/Mid Levels [facility] [address] [place] [address] Phone #: ext- [phone] 10/08/2019 03:07 Patient: [...] explained to patient and daughter. Transferred to [facility]. Summary of care (CCDA) provided to transport team, EMS, patient, family and transfer facility via paper and digital media. 06:00 Oct 08 2019 Transfer to [facility] ED by ambulance as per Dr. [...] rce(s) Supporting Document(s) ID Date Data Source [id number] 10/11/2019 02:19:47 AM [facility] Name Value Range Interpretation Code Description Data Karoline rce(s) Supporting Document(s) ABO and Rh group [Type] in [facility] Blood bank comment [facility] ID Date Data Source [id number] 10/13/2019 12:33:48 AM [facility] 10/13/2019,[id number] Name Value Range Interpretation Code Description Data Karoline rce(s) Supporting Document(s) ABO and Rh group [Type] in [facility] Performed at [facility], [address], [place], [place] ID Date Data Source [id number] 10/10/2019 10:46:09 PM EDT [facility] Name Value Range Interpretation Code Description Data Karoline rce(s) Supporting Document(s) ABO and Rh group [Type] in Blood [facility] Blood group antibody screen [Presence] in Serum or Plasma [facility] Blood bank comment [facility] ID Date Data Source [id number] 10/10/2019 05:51:37 PM EDT [facility] Name Value Range Interpretation Code Description Data Karoline rce(s) Supporting Document(s) Consultation [facility] HERVHz7ePmBGGgPt97/YTBheQYNip4RyPUopEJq9ICpySBBvI6SqQRX7sR1hHMB3QTbLNaUxFwUhOQQ5 lbm [file] AgICAgICAgICAgICAgICAgICAgICAgICAgICAgICAgICAgICAgICAgICAgICAgICAgICAgICAgICAgIC AgICAgICAgICAgICAgICAgICANCiAgICAgICAgICAgICAgICAgICAgICAgICAgICAgICAgICAgICAgIC AgICAgICAgICAgICAgICAgICAgICAgICAgICAgICAg ICAgICAgICAgICAgICAgICAgICAgICAgICAgICANCiAgICAgICAgICAgICAgICAgICAgICAgICAgICAg ICAgICAgICAgICAgICAgICAgICAgICAgICAgICAgICAgICAgICAgICAgICAgICAgICAgICAgICAgICAg ICAgICAgICAgICANCiAgICAgICAgICAgICAgICAgIC AgICAgICAgICAgICAgICAgICAgICAgICAgICAgICAgICAgICAgICAgICAgICAgICAgICAgICAgICAgIC AgICAgICAgICAgICAgICAgICAgICANCiAgICAgICAgICAgICAgICAgICAgICAgICAgICAgICAgICAgIC AgICAgICAgICAgICAgICAgICAgICAgICAgICAgICAg ICAgICAgICAgICAgICAgICAgICAgICAgICAgICAgICANCiAgICAgICAgICAgICAgICAgICAgICAgICAg ICAgICAgICAgICAgICAgICAgICAgICAgICAgICAgICAgICAgICAgICAgICAgICAgICAgICAgICAgICAg ICAgICAgICAgICAgICANCiAgICAgICAgICAgICAgIC AgICAgICAgICAgICAgICAgICAgICAgICAgICAgICAgICAgICAgICAgICAgICAgICAgICAgICAgICAgIC AgICAgICAgICAgICAgICAgICAgICAgICANCiAgICAgICAgICAgICAgICAgICAgICAgICAgICAgICAgIC AgICAgICAgICAgICAgICAgICAgICAgICAgICAgICAg ICAgICAgICAgICAgICAgICAgICAgICAgICAgICAgICAgICANCiAgICAgICAgICAgICAgICAgICAgICAg ICAgICAgICAgICAgICAgICAgICAgICAgICAgICAgICAgICAgICAgICAgICAgICAgICAgICAgICAgICAg ICAgICAgICAgICAgICAgICANCiAgICAgICAgICAgIC AgICAgICAgICAgICAgICAgICAgICAgICAgICAgICAgICAgICAgICAgICAgICAgICAgICAgICAgICAgIC AgICAgICAgICAgICAgICAgICAgICAgICAgICANCjw/bVGvI6zlxVYiqrX7U5gbWo8SBr7FPH5ky7FkYP KvBHiwohIkTufQSmNpVDEgNomJSpa1PTbgBG1AdIMh S3EpN2OnPQpzRL1HXDXwSRPfyRAgPBHwQBIhWxQ1XQJrHWdrJL6HzMCfHFkgNLRlZECqSfTpZYXtARCj WFTyMWViXOAEBYEgXZXnEmMuRBJmKFPpSC7OCKWbH936mjQyNz1VTz8OHlWuWN0kmo2NQxgpLOSgJkyK Qxn1ZEwvUG6VeHJjwJBoLQKzVRVTObCiM7wom7ZqAj NuMUFCIZqtBF8Zz6LqnVZvOYj+Gd8LHZ2af9UlCSlaRTJsVY1xfi9FURnQCxUuB5BhbZjwEOYsscL4pX YjZFA9XJzvPwWqYWhmYELfpJVawY7wHT8YVAM6EGxzZV9fRTAxAPS8XnC1STTLYX7XROBpASVxrLXpJQ JdSWAXID8UDYoiTKS4IXXqkiKtgMOlOWtaZR2XOVYa bnQgMjkgMCBSDQo+Nq4WUA5wk1HkEBwkMOCpHU2fub9AIJfYAyUzW9O4tARoE1K8OUrhGy9XVMQtTTEb QrzvBHOEEUgeHZ8ENS7ibmH0LC0ZuUHvPWAwAUNvnUJwIJc2A06ojCRjSWhyPO8LYHB+Greta+Ym2YAHZu UNNfNFNnGtDpHJNMDqRiE0XyH7OSe4LpG1EkHM02vN sllrJqHMyuHT9NJA0oDWRlOGXPTI0UqFVlaM7gulVkZJJvRRFNFfJgK12qmLIzHFKpKUB2YMOhEe8JUA NtF8XvkrTolNpbcnTtYELgQFUQHA6ULIumxiFwoXJvqStdLQ68zMygSB0ZUb5IKfGqNC2esl2XqLQwTf 4ICCQvDf5IMGWgSPSrAFGjJJJ0DHVfGzQwDOakGYZh ODXcLMB4PLEuFFHgRN2GJvXeYGQtBaCsUwfzNJKuWVQdsh7XKOPzRGUtGai2FpNvDJBvOOJpWPfbNCIs KKBmCRI2HIRrCTBgOA2NQrCjSRJrBCG7GxBuIBVdIWEsvm1YBXNqYWYcGPSoHkAfIVXoLSLwLZlbBPSp FXP8MFryEUOeRHLhOX5ACgMkYSSwVZxhAKYcHKLiLW Nfob1MRIUmSYIgRKbaWCZjVVNyTDCmELvfYIQoQHJqGCX4HDFuEYVrVC7PFcLjTYDnSPL7IeuyTENdTZ Glih3HQMOnTLDbNzSnWJEtEIOeTYFdGRksOOVnJGG3BMHrDRYfXHAnZQ1VMmOzRMNdNBhtMdbrRKPhIY Pybb3IJUOrZCPcXUIdAjPvQNOeLEZgVEwsXCHdDISl SfJ9VZKsKNDmXX6DEhUrUSHeQsWgUzueLLUxWOSwvo6CURVdRTAgAJS3BcOdJJGkXZEoCKnrQMOhLPRp PSN2PNDbTYTmXX9XWmImKWXnKzK0ZPmxPIVnCKIbcp0UVJLpPZAcPcaqVUPrHPPsSBJbRJslTINnIQOf ZNR4GPRlYHCtOL4SSaJbHTZnTfPvTLKdVZMyVXPrqo 4MBGIxFWJzPABgIPOpSLOzPOHcSBtxFSLzAEB4WDVkXQVpPIBrHJ3IElWvAAHfVsHgSSaxOBVkQFAcns 9QRBEwOTUvRUVpLXKyAYXvLWYgJEwlMBHbCRR6GmM9VGWaSJPpTH5QWwRnADHwWyxoYvcjTYOiCVYdva 8RQRWnXDFeTeG8QJVvHEEdAKDkDHdpRMIcCYJ8Oxtq AIWxLCKmKA9HHfZpJFxbXRVOKfh1WAaeA5z4KRDzFd5JA8Lcv4RrHuKyBHRAXFfeRR9puiTqNMLnBp4B K4rPJtxxLZKrDgz2SMGfXzO5RTJaCHJhHPQfD7SzNneaXvd7Dq8sIKC0VXBeDPqsFZZoLOrdRBMvGIAo PCY6DEZnJHEgOrTrRyCwCM5HQe4PLrZ2BZS7cBOxVd5ASvs9RjSBYkTuIA3BLEc= ID Date Data Source [id number] 10/10/2019 10:22:06 AM EDT [facility] XR CHEST FRONTAL ONLY [id number] RESULTI nterpreted by:Sai Laird MDYoungangus Hastings MDINDICATION: [...] rce(s) Supporting Document(s) ID Date Data Source [id number] 10/09/2019 09:19:18 PM [facility] Name Value Range Interpretation Code Description Data [facility](s) Supporting Document(s) Consultation [facility] AXHOQs5kCbULZtLf45/IFKvbZEKhb8NgQWddXMm4RSblWUTgW8QxLAP5lJ2jJVG0AVhCMbJpDjSpEXC3 lbm [file] ogICAgICAgICAgICAgICAgICAgICAgICAgICAgICAgICAgICAgICAgICAgICAgICAgICAgICAgICAgIC AgICAgICAgICAgICAgICAgICAgICAgICAgICAgICAg ICAgICAgICAgDQogICAgICAgICAgICAgICAgICAgICAgICAgICAgICAgICAgICAgICAgICAgICAgICAg ICAgICAgICAgICAgICAgICAgICAgICAgICAgICAgICAgICAgICAgICAgICAgICAgICAgDQogICAgICAg ICAgICAgICAgICAgICAgICAgICAgICAgICAgICAgIC AgICAgICAgICAgICAgICAgICAgICAgICAgICAgICAgICAgICAgICAgICAgICAgICAgICAgICAgICAgIC AgDQogICAgICAgICAgICAgICAgICAgICAgICAgICAgICAgICAgICAgICAgICAgICAgICAgICAgICAgIC AgICAgICAgICAgICAgICAgICAgICAgICAgICAgICAg ICAgICAgICAgICAgDQogICAgICAgICAgICAgICAgICAgICAgICAgICAgICAgICAgICAgICAgICAgICAg ICAgICAgICAgICAgICAgICAgICAgICAgICAgICAgICAgICAgICAgICAgICAgICAgICAgICAgDQogICAg ICAgICAgICAgICAgICAgICAgICAgICAgICAgICAgIC AgICAgICAgICAgICAgICAgICAgICAgICAgICAgICAgICAgICAgICAgICAgICAgICAgICAgICAgICAgIC AgICAgDQogICAgICAgICAgICAgICAgICAgICAgICAgICAgICAgICAgICAgICAgICAgICAgICAgICAgIC AgICAgICAgICAgICAgICAgICAgICAgICAgICAgICAg ICAgICAgICAgICAgICAgDQogICAgICAgICAgICAgICAgICAgICAgICAgICAgICAgICAgICAgICAgICAg ICAgICAgICAgICAgICAgICAgICAgICAgICAgICAgICAgICAgICAgICAgICAgICAgICAgICAgICAgDQog ICAgICAgICAgICAgICAgICAgICAgICAgICAgICAgIC AgICAgICAgICAgICAgICAgICAgICAgICAgICAgICAgICAgICAgICAgICAgICAgICAgICAgICAgICAgIC AgICAgICAgDQogICAgICAgICAgICAgICAgICAgICAgICAgICAgICAgICAgICAgICAgICAgICAgICAgIC AgICAgICAgICAgICAgICAgICAgICAgICAgICAgICAg BPTbMZXkBPKcBNEeJDLbWJGzOZh2Z4csYACeKMTtKG8sOOg2On7+IXiJKlOgZFL0wmImaU8RCR2nx6Sr RRdyZOVxg9UfJBo2LJ2QIGQlPFhyRP8LVBjqge5HSLIjMTCsfSDRf4twAoSpVHS9EJKiCicpLM7CJDXa W9egnuPgOWZpEDCTXTipCOFDFWbbNQZVQZTdGSIcIp XzIIknIF1Ly4EnlOV7NJv+Yg5XRC1mb8ViACcnZDZdGP7ptv0JXBmEArFqW2UeyuE1BLE5ULMfAg2COL XqFDBpdBSyItMjTTIKSjHsI5ZbaR31MUUDKd1+HRisxwRmKahHRqR8PTNhd5NxIUu0CU7MCKZqMIy8fB EnW45rt7YziZFnMyihYrLjpCVscvdyNPAIsU4dygPy COEXKAF2DXysXP4aNEPgSVX7JdE9TEEMKW7KXHHtJTZduCCnITKvIJFYAA7WXHiuUUW5OWDzfqSfqSYw ZCbcAM2IANKepuPuGeKwKUQEJKn+Zq3KEC1gb8MoNIjmKfAmDL2ulz7AZQdEXxYcU1F2pYDaA1G0SWtc Xs5TKTOpBSEzCiWaZEWBAArhZK7GDE3ifuX7AT9EfZ MqMGAxTOLibPAsMHf7D36yhFStWQrdMR9NFOO+Greta+Pn9FPYXyBSBtCRUtNgPqEPPEIbNoH7HzR3TRo0 FsS2ClYQ29oAmclpNmKAtaBS8ZQC9sCICnJIIPVP7IjUYhfS7buwYoSRCsSHVCUwXnG88mgUVfGMHqBA D9ZGFdMa9JDXYmV6JfaiJflDcvauVkSKJsWVZHLG6W TAztdqAzxGWjiRarGX16uHixHY3IOs7SBvYbXH0jbs4FoIPqUb2VWQRsFR9YHFWuMLIzJYKcNSK6ZJBl KpVgUQrzEIYkHLPzXSA4XOTpPMJlIP0EFhUoXMXqTag6QEGeEWUmWEOswm5BDXAgPBHdGHK1IeSvKPFd NPRaNPmmNZHfJHVfZYE1ECOyGWGsAB4RBiEqAJPhJQ KzSEttIJQuCGGyel0HBWHgRYDtKCM9TeIgHAJnSRIaRMxbGJRoPVH8HTCaULDaZQRaRD0FLaRuQEXmWS puBUqfMIWjNLQpzn6AQNXdQELvFRFqIYHoUHPnYTKyZVztWLHjICNmEKJkMFWgFYNiDD4FYpCyHBTtON Y5NvofQCTtQXOmcp2BWKTqBMJbKgRhBNYeMEGeYAKv DBldGBJuCDW2CLd1JSMlKWGlQE1WPpOzVIIsOEL9RQHpWOZhOPTnxr6UICIbZDGkDBd8EKFvUIRpYOHa JXvwLXQuEXT3OEX3BGLjPRGjYF9SHgOkAOZnZOJtYbSgWRHnHLIhxt5RUFNeXOMeOcZlCVCgSOYpAUUw KYkuZBOpXRD9TsU2JLZhRQOmJO2WRuKmXNPsOxpyGa tvIINhNGTvde4OMVKlYIAjSUKvYmFkFWSvHBGbABkgVNKkOGG6EOn2AFXkLEVtNM4EJbRfSUQhPkk3Ql RdKIMtNYDwgc1MFIZuFHIxWUSbWuDcKMZyNZSpOIanYGXqPSDwGKg2OGKsUYAuDD7GPuDlXYXuCyM5SK JaWGYpLCUpty8CVIEqLRQpHKN5AMWyNSLbBQWdNIe6 joQesHBrGNu2BO6TP5TygnBwHhxSFq0Gz012LBF0FTKxBu6VB8lxGi9gMQXhRNZAQc9ZBZi3RKdcPzR9 KMKvVqI0FPzsAjOuGGV7WeTtKjKhKUQxWtI+MAo0UHYgVDvnXZB0YLqxAkKsGkDmBYkcQFLzDjSsWbOl KI3jXLACLn7+JWwzfSXbhRwzUOFWOpCqDPU2RXquVRTZGz9B ID Date Data Source [id number] 10/09/2019 04:42:[address] [facility] Name Value Range Interpretation Code Description Data Karoline rce(s) Supporting Document(s) Consultation [facility] HUGVIn4gJfONOvLo72/DOFyoFIMpc7ZyCIwvNQm7BLavJGBqB8SwSCC0yG3lGAR9VFlCFiKaBpUjPYG4 lbm [file] TrETq2IyGpRjV4GfTvZVR1KPJ6TL0lEUSHBk7+DQmjmZYpeOkkKROJQkB8HPe4FVggEWLFAi5S ID Date Data Source [id number] 10/09/2019 03:16:57 PM T [facility] MR BRAIN WITH AND WITHOUT CONTRAST [id number] FINAL RESULTInterpreted by:Amy eSo MDINDICATION: Known anaplastic astrocytoma, seizures.COMPARISONS: CT head [...] rce(s) Supporting Document(s) ID Date Data Source [id number] 10/09/2019 09:29:39 AM EDT [facility] Name Value Range Interpretation Code Description Data Karoline rce(s) Supporting Document(s) ED Provider Note [facility] BSPSRd1zQhPTDmPr73/WKPhyVHWpr6LiBCtgNQp8LUrqBLKxC3JiZPE8nP7sFBC6FRjYVmGgLlKhTWY8 lbm [file] 0K ID Date Data Source [id number] 10/09/2019 02:19:39 AM EDT [facility] Name Value Range Interpretation Code Description Data Karoline rce(s) Supporting Document(s) History and Physical [facility] SZGZTw1tNaQTTaCl31/UIUxmWIQjz7EzIHnbMYn8FLitCALjV9MoBUM9zG8xVNU6GUwHKaMePkFrAKF0 lbm [file] 7M9806rwx6NSMLdVg/1+n3/CznXPXAKET3VlYAECVS 9po1EuC/2dYTTZ6WscDBINDVK69umMv9Y7YKwERIVdqyekaoxhDFKVKZUXByAM5KZz3/ujwYv7+/vdbv fuJxoAAAAAALiyw+MHMxxfvtYodiIiGO6ir1xil109IrDZWWTC/WxwvVL5pmmy5QH2+QbA4iiep60SHb n9kcOEJGXYyT1NotGT4SJzqqT11+33+0j6XGTTIQDW XM/xC7JrCDMJEBPDJ+Dym0NbmApIAKRUVDCMLkAHFbgaPuh9h70WDKKLCLU/W+4oGyYq1vFIFASDARVs qylUIYQBAAAAAAAAAAAAAAAAAAAAAAAAAAAAAAAAAAAAAAAAAAAAAAAAAAAAAAAAAAAAAAAAAAAAAAAA AAAAAAAAAAAAAAAAAAAAAAAAAAAAAAAAAAAAAAAAAA AAAAAAAAAAAAAAAAAAAAAAAAAAAAAAAAAAAAAAAAAAAAAAAAAAAAAAAAAAAAAAAAAAAAAAAAAAAAAAAA AAAAAAAAAAAAAAAAAAAAAAAAAAAAAAAAAAAAAAAAAAAAAAAAAAAAAAAAAAAAAAAAAAAAAAAAAAAAAAAA AAAAAAAAAAAAAAAAAAAAAAAAAAAAAAAAAAAAAAAAAA AAAAAAAAAAAAAAAAAAAAAAAAAAAAAAAAAAAAAAAAAAAAAAAAAAAAAAAAAAAAAAAAAAAAAAAAAAAAAAAA AAAAAAAAAAAAAAAAAAAAAAAAAAAAAAAAAAAAAAAAAAAAAAAAAAAAAAAAAAAAAAAAAAAAAAAAAAAAAAAA AAAAAAAAAAAAAAAAAAAAAAAAAAAAAAAAAAAAAAAAAA AAAAAAAAAAAAAAAAAAAAAAAAAAAAAAAAAAAAAAAAAAAAAAAAAAAAAAAAAAAAAAAAAAAAAAAAAAAAAAAA AAAAAAAAAAAAAAAAAAAAAAAAAAAAAAAAAAAAAAAAAAAAAAAAAAAAAAAAAAAAAAAAAAAAAAAAAAAAAAAA AAAAAAAAAAAAAAAAAAAAAAAAAAAAAAAAAAAAAAAAAA AVYOACJIBCOYRXDZFHBLHMZHFMOTTBOABNJDXFNYODXLO9h/DNqHT1XCHqYqAYE4fiSkxK4WCT1sd7Gv BEktMCNbYU4ljw2ZG81EChMzYP5pbr4TAyFoJN8lco1JMRsYVtJdS7Cmn7YTAUTvCa5JAPCxAVP2fR5O bMUsPHYgKY6zO7JMVM9NDDGgCp3jwEF9RQYqIhUuYX qiEEBFISknIJYnM5UjZGExNTDiTi8OYQAjDA6IPmEjIWXlNNIJFuDdDCShZiCdSphxQBEAJZqoEEBnJ7 O6PRNcHSWrOn2COUKoTF2FADZzALLySAI+Sw2IMLWaJU1jvyShoLQ5SUZadF4kOAKuKbLcZETLPjCtZI IupL6pXMSmFvVsHSX+Vm3QKVPzUSu6U2F9YFWsLQp0 I8WWX6UIFFMzDDdfIIgsXBZnRBg7E9P6DSAcR0UKB3Ddqegrqj1+EX1UY47XDXVbOMp0V1F9lFPjE7M4 qDrXgQQ6MN8ABN0IaDr4fALpdT0+GV0DO0RGSuKxDYh6L9H0eMEiJ9L0hOhPeJP9FT9FWE5CrWOdBGGd kgTeHj4dE3IVEMxDRoNJWBQ9MO3QjKYjOV4GpCNZZ6 EbuTYuFd9cZAvwcDLafJ1yVu0aZIxzVJ9TZzEDAIoRHRY8YX2JvCIyUY9MrLEPI5KujKIyZl1uTNqfuR Rlbj4+AH9NNZTeKp7YWx8+ABzmjtDgGloWIkZ2CFLyh0HuQLl1XT8KUX2dmQydFIB7Ix8VoAM3yVRjT8 gKRT0HjECuG52faZNdGTLjMe3YWxL4rdEtiQ4KLD85 aNWaz2J4JXXnV8rrKQfky12eONlxGEmWMS3uRMKWCIzsILpjDAA8EzDqqhndERKwRk5ZSuEhVUj5xW2d kDT7TGQ4FejzlQYxIVwlNsRrSaUyXgQ8hDipuee2KGmdTG4eXBduxjrtXJUsAkq+DQogICAgPHJkZjpS RRUrjM4nmzA7eoMxWYyqkVTwGp2md5t4ScjjTa7pLp 3aDFb3ThOgYmSfBOZiTs5yyT92QMtjpyKwVv2ORiJzNUS3L5GmPxqODHS+HKfzNBpkhJp0jUBlDNNmCd 0KICAgICAgICAgICAgICAgICAgICAgICAgICAgICAgICAgICAgICAgICAgICAgICAgICAgICAgICAgIC AgICAgICAgICAgICAgICAgICAgICAgICAgICAgICAg TXTnVBEqSMDdKB0XFSDsRRRiOTVyZDSrXDUbGFVwZPCaQPHfDCFmTMObKGIqEWNnNVVqRCWmGOIbEMWc WKOvQYOzUYBrPOOoRADzFFAgXDUaVPOuZFBoJTJgCHScBJDfWFUmTBSiQTDeGDMlXJXtIX2VGQOtNIGz ICAgICAgICAgICAgICAgICAgICAgICAgICAgICAgIC AgICAgICAgICAgICAgICAgICAgICAgICAgICAgICAgICAgICAgICAgICAgICAgICAgICAgICAgICAgIC RfFQ8FLGGnQOTdEHFyALSdKVMnGABeLFXmDZHyQBAnJSDxLUWsKYCaXIJcENUaPIXcWBQhIJLtEXUbPR AgICAgICAgICAgICAgICAgICAgICAgICAgICAgICAg XURnQTGsLODfRBAoAJ7TTVDuUCRaBTDaZZIdHQWvTVWuXRJeMQHiMBPdDZDpWCHyPZOiVKEfEUSnECEq VFWhJTYyDXEhTPDgYFAzKGOeDKXqHNRwKIChBPKsHRZxOCDhLNZaQGRaSMHjOAJqSGNdMTBrPG7LTPAc ICAgICAgICAgICAgICAgICAgICAgICAgICAgICAgIC AgICAgICAgICAgICAgICAgICAgICAgICAgICAgICAgICAgICAgICAgICAgICAgICAgICAgICAgICAgIC PoBBBzLW5LFWIcBKFfKHKnCJSlQKBsYVVtCNSmXARfRRZiAOYwOAUxKWOpAWLiGTXrVSGtUHJaEIDrZU AgICAgICAgICAgICAgICAgICAgICAgICAgICAgICAg HEWeAVRyURHqIPZrVKCtYK1XZZVbSPEqKQAlEOOcKOFaNCZeFTEfHWNlHVWxYKOvNAOmECHqVLYkLDNi IKAjLYBkVKMoPKCqZDXlLCEiJFXgJGIdDBXwVCUkYVYcWCYoYCXaTRZuAYBxYFPtURDpCXEkVUOeOE8W ICAgICAgICAgICAgICAgICAgICAgICAgICAgICAgIC AgICAgICAgICAgICAgICAgICAgICAgICAgICAgICAgICAgICAgICAgICAgICAgICAgICAgICAgICAgIC OhKUAqOHYnWT6LCIQhTOBiXCYrMTHwUVZsRHZkPGCgJEZbHYUeNIUuHWZgVCOaOLIdJUSpUEGzZXIfVK AgICAgICAgICAgICAgICAgICAgICAgICAgICAgICAg CFMjNYEoXQTmPFUwGQNcDFLbPW9PCY34hJCwj4D7MZRfWQ0wjbi/Gr8MGZcdqfLohBSvTE2POaHqCQ2l ff4NDaViMB9gpg4UWRpXHsJuV9K5eBApZHFaXCHYXkUcU53sZHsjGb40WQmrNTZpHkGzFFy1Qo7QEzKh F8qvPEYgFvF8TPToEoX1ZOVoPvS5UJGnDtIpBCKkFQ PgBVYmQQFOOAX2JBBuJkAuJGgpGU5Th3EurHI0PFq+Uc7TJH8po5WkFTg7PVImSB1equ8IPMzCUqGmB7 IreqQ1LDHpTYMdGy7XIJGiSJCerTP0HUPnKZNYOwJwF8TxiV46SQYDEh0+DQplbmRvYmoNCjQxIDAgb2 BhAYx4QP5TCTKfRIu9qZBxYCKFZEE2QHYvHUHeGXMK XRJ4qRbmHYMhEIYnNI6uPhTgYcKzRYF9IMDjSZ5oGAulIB4JBVE7RXcvFSZqDOXyJ4tFEwPgWEUmGlOt aNsqLD5SCyDhC8UdkaAncVW2TKAzJDYGOt6+LAwukiPwZwaQNqNvRTTrx6HgHOv3JH8SZQAlKNusFP0E OHSusL7uDHmbLD6FUqUtIDUqAZGPWjMiU28qkAIuRF f4N7IgCoZuPDEpCwruUSPqCCllLzHkYDUdVxLqZNjiLO6+ID4+NAkgJY5UGKjvplFbCNBxBb1ILGYmVV AvJJ8hDIGfEDOeM7D2yTufWJUZLjVxO9xhotjyJR7tPYWeT361yQlhpjDzHQTfCIKsNh8ORBAvUVU4ZN FbsRDmMaoiDKMBJSapRD0EhTOiJVU5oT5aHKujCFIs WHIgA4hWChJsvRtqPL83fVedbbOomKLcDNx+Xu9MMZ5zr0ExUHt0cvSqPUwcGIErGDcjAGVlDCHlXFYi PIM5QZJ0AETJCnEqXRQvSLYlEQnaGEDaIEMhic4IURMfTUQ4WtL9HfUeDYPjKEIuSMxjXGEfYZxjRKas ESBjDQQeXP2YCySfASSgTQSgIDoyFNBwYLMbfs2EJE TwEUUpSeFmRGHpIFRaCCBhOTbcZQXkVPQxTyU9VSEbMDPgZD5OKrHmSLYkVNK6FHBpCLHvNARmsn6EIF ExLVJpUarxQSOvWWHnGUKmKQgaJYNbGAPeOdm2TEZePDDnIH4PXySsVGMmKJO9CBXpHBUsMRBsqo8YVZ BlVEEgJoo1ZFLrGRNkUFIpLUuzRSObBZL3HEf7IAFz WAOvTL6WYoYjAZGhXWiaVQXeAXFwQTUcgb2ZKOYcORKaNHX1MwSkKCGbAFLqHCakKLAnJRQcQtfeIJBb RJFsYY8ARkPoKTMjJbI0OhpmZVVxUBQtqm1MHFMcJHIyNSutTDNpOOJmDKKdUYofGGWyVVAlRIN1KSIc IFFxUN3SPvTeNOEfIeKkEXmkZVIdETNofx9ASUUwHM TfItB5NEGgMEFuCKGmXNemUKTkMFIyFTjnQKCzZDWrOA6NMnMpLMLiAgV6WnwgWMQcEIPyxd6USVJrJE AxOBGuSXKhFUGjBOOgVKzjJAWyUON3KSE5RMVtVBEtVR9MHdXmESDlIcKzCPvsFDMySUTnyc2TPSPuKB JeLRm2ZhZkDZHiTHCsOYjnIGQdMMC9RAY0RQHgVWMv JT5YDtIvUXPaEsNaNYjkJPUiWYEigq0CLJLhPXWcDsj5LfUwYWQsWISbCJniBGKfTHO7YVCbYLNfRRAc UL4OVgLsCCTxImwyNcmtKPMyEBMifb7FEJEuTZFlQAEdBXEcJPLrJCRaOGnuADNbHAD1AlW1ECOfFJRo IB1BAwAkGYFyDov9JQrgAZNoPFXvtx3DLFXsOBPqWP n1LjEqUEBgOUHsJZouLLIbXAY6XRZ9ZXQgVKGbNZ1YDhJgJFYoQLY2NHYzCJJmLWLfye3SHHQsWKU2Nf P9WIFoPGBzCLQlJIgsLQYbPQxfNmLaKXKbOUOzLA7WDiKeLOBxAWTxMsPrDWRyEAAvwj4NQVHtXSN7BL G8MSSiLCDyAAIxTVpiOLRiGQc9SrThXUIxGWPzWJ5X XkXfXXmcGICOHdj0CEttM7b6HMQ5Ny3VS2Dpu2AyMZXjAJEBROwkDE2sbuLwMLNeJu6FW4yBJsw4ObPl ThH3VASyNECfJ9BtZULcQJKjZFXcBPNaG7QlGE8sOATdCRIkBuPcSoXsJwWgOjMlOsMoJuMjCRZ1IVB9 AfS6DiOuPZ7OLb4JUlI7RRP7hPQlPb3WYPV7OdDEYrBzKQ7TFMc= ID Date Data Source [id number] 10/08/2019 11:40:37 PM T [facility] Name Value Range Interpretation Code Description Data Karoline rce(s) Supporting Document(s) [facility] DHIDVd5qXqLGNeXle3IrUkVnZATfOL5swsr6U5S6tQMmH0ApnGYik5eiC3ZhT1YgNFBoFHXSRM0NeTKy jb2 [file] n/dCXocZL92hUMA+uriah+cbsw/q6bb++Wf1p9rz55cT75n0lxQ+133+1VHhogLnnv2OvtK9RqnqedD/4q g6iM5r2+ed/8hJ90ZqtCaQGoH08IT15NfixaY7JA9Z41x207q3m3/uNxTre8wHbQjzApRw+yb8ldeN9+ lQfqB+cU3ivqVaS3XgeNXb/KE/XZ8UwnYVx/Rv19Hz xPmq4nw289x2B7Xn8Io2he4yfdqR8I75uf7y02DI8Pi3k29R/1ihQRHb40iaSkxP12U6X/5ft+dNYf/4 7dOP++5z/8Fm1d4DNur/WWetMuv0exzSvZd5H63E0/R5zz+EirJ57d3vHnd1pnm2Ofc2/vUljFi5H/b3 0pi35f3zP55/42ILYB983C+unSIzAf3wuzVCdlYKX0 C44dIAwdZXrW+btiu22egcC+o37f+cZx01othCvTR+wK0wZ6tM8VleZ/0OXJm8k06S/3/Lynsey+/4YE/X3 rm6cCc1c3NH8bw8Uz/EFFapws5eiyHwnVwAcGT9A4Qg1UdvxiK6I5/Z7It695gw2mRX7D/XwN/JXeezC eTbu/+SmzzM5Gv9o3/lG/iqX3B5/Z3Ajc3BrHq/x+4 Hz4Pk6/ZN349qlfZ0kwgC+oh7+Xd88Mp9C/Ef+XvwCq9pxN897Xj+Ns8eVm7grzuoxoexQftbRa2vhe3 cofek9zel/kb8aE/5OtN/IX+K3shab5C5d8I1/V5af+xyISjzpSMC80QEpYq6cKuK2KFn67n748gO3z4 +9eUijx6hLmU/HrwTo3RaQ+Y+/bV2Y0fCDk/B7+Bv5 K8/x2N3ko43MlkH/CfCX2L8s/Jq49CdCCiljhxA8R/xF/oeKF56NxJY2Fgsya093w5V6G+ox/oa+esu/ kvk6lUh0yh448BzvBt/XhjLqO+u43xaeU+dX8tzb1/B9ewchCD+tTZxn/dqptdt+ru18c0Q4HckrerQJ Tt2zP5sXNmEZmi6Y1qhji/r2T0E3K8y53nYHkTDeyr B0DaNa4L5HVsk14yzP72aFP8f7Y916Tj/+ivOz24Mn/l5T4lr+3I/hxw3rwzUV+NiaGd5CN5Al5Jmekh Eqk1RNwGN/dX5/7KOhTD88vcns7TCnAx43JjhlPSH/xoJdb/zGnR816u2/Gd1/bcyyZWzyJtZr14505d afl6b5u8x099u34nPSxq80e/0+g9qdX7k+er4Lc62+ ujp119/m/T/+5t+XWwrm2rbfct3ZcTWRR45SSw8/c+uX5AhmbK36RIx4f6V70qIKSl6V4N1WacxWkAW+ FOh5vnbFsEJl05+w12ov9wx71eR/lde6+RyL+VexfLrf+XXW7/df6/p8itKxr7p1AvsS204xxQYDQ2pL 1N/wB4jco4lyo2hermBOioXpWaD59nt2/cjGfT+yMX H+cdBnyOdxIi1B+JxyQ08WvC3+zhqp99qF2An5wtyT+zX389zmSXG+KtpX5K+e6Zg63A/JJ2Uj5W748L l1+8aDxXyGU/Y7f+Zxjv6RXyZNraW2jo8oPni+4dg2D6cN7s3r7d33tiqMie/508fCZGF5o8I+5xOa3/ mE5nc+oeunQ9uxzyq9fM7B/KKhf9OseauO7Wkd0faw 3nzdWVmb+ZmzsPZty/KCLrtQsaJ2z7kQVy5yQHqGGB3AI9gT3cmAvjunu9+Gmw3eTS+v98sBsedCXXst m6K6hlfP7S8Xe2fNcW/4Hjr5S0kY/dW6+Ltxp03zJe4yvtX/V7aEbB0Ctt51v3G+8t0Anu75nwsep523 +vjfJ5rmZQcfa8gJ6kHfE/pcI867y8++7tyqaV1/+i p5O/oq+Oz88riD/sV5WHwsUZyUIkf+86WoSi4Ebxe07ehdM/cw74ebqapZ96hXo4d708q+sO2br/N283 Fe9euqs1G185093uxIUqSnOoRmak4rwqe2g/k6b3c+gzdDvaHeUe+ov/krb3c+collision technician/5e3OV/HQV3ns/d [file] SC8jA/llZCDBjAxkmJGBFDMykGNGBpLMyECWGRlIMy NKbVVdRFCGQHTstJMXMrLJo5ZQmq8ZKOAVr0ttpdgfdOrI9TqZgmTA5HMkERQReZviAAO3EaALJhMtK6 yzYR9uxbCbMnJSiZrS3xUAVkmCiWVpgmQtNNQYmIAzgetMMFBcBtB/CAVjDO3k7l/ay9pfM9EAmE8Vf9 eo7OGDUEeE8PKxoJblkIv0yYA+iTt/DvwTB/0Th1am FdjDYWXDgW0pByuErmw6gaUtYq6Bz63VRznQgGZrcxFn6C2LKHWjQdXqto7FIE1q5gfUh5nepflR8ZWS qPbfVNQpGh2BNl73jmt5WWgYyZyzgZ/ller1mZ64oZAXvaUI4VhSuUva0FiCbItDDoAUSttwIWRpQQTC EZUPtcWDLUSpLIYoPS9PBmya2hymkRCd6LdwWqErcY QY7zVGX3SnS6DJvBlOjhtFYmJnHGZsGWyVhhQGyvdRb0LVgLIChTXTuJO2Gfv6Rsah4GjGrNuT81VrSy mLi5K0GOUwKNCjxfPkbkXGB16iKDqXJqtBiFHtO/Y6S2WidxOt+vtB5IicqrhoD3jIT5G/VQYKuMqYiH qKMjmj9AkX+Z8JgQYoPOc/Aotz5NZ6C++pZCGMXAIy 7mjC03Rith97JLxSfEVMpoN947aZzWzHWlh3AMzo0f7zxSfOhC6suIRAMrV0J0fV8Qg01SGOAt+MwffO WRojF+FAu5JexvD4c7mLDWnVWBZ+iVkgI++7L85dNVYpYeXmedlWSFGiFkOQqIwVoYyRY8GERGaobzOL 9N9sGDigkVzOGvume4WSND4i6FiOhdJlW5apjCe9nS 2sKu6FNGbvyJNiHG+Hw02LEAKWgAfx83jJ1c0TZi5DRhIZflEZdHDj+T/oD6alUzUMwTl57jRE2B+PHYSICAL THERAPIST AIDE [file] 90IDUgMCBSCgo+QgsxlJAlxDrgRCCTRnFeTogXAPHUK4D= ID Date Data Source [id number] 10/09/2019 02:35:49 AM EDT [facility] Name Value Range Interpretation Code Description Data Karoline rce(s) Supporting Document(s) Potassium [Moles/volume] in Serum or Plasma 3.6 mmol/L 3.4-5.1 [facility] Hemolyzed ID Date Data Source [id number] 10/08/2019 07:22:00 [place] [address] RESPIRATORY CARE REPORT ==== ---------NAME------- NUMBER SEX AGE ADMIT DISC. XRAY# F/C TYPEWHITE TREMAINE Brown [id number] F 54 10/08/19 10/08/19 [id number] XBE E/R DATE OF : 1965 M/R# [id number] #: [id number] RM TR-06 LOCATION: [facility] [address] COMPLETE:10/08/19 0 7:37 EWW 13737 PHYSICIAN: YOSELIN WEIR Name Value Range Interpretation Code Description Data Karoline rce(s) Supporting Document(s) ID Date Data Source [id number] 10/08/2019 04:35:15 PM EDT [facility] Name Value Range Interpretation Code Description Data Karoline rce(s) Supporting Document(s) Consultation [facility] AUOZRj0aXiXWTdPb64/CMLsmOWCjz7RfPChpOGd1VMepNDLkZ0HkJOD2sR5rWQI2ZSoVClTgMeDnSWHd lb MgJqeQOoNhCQCsQfkTEgLyAExzRwehvBHoVM6QyKH0UBOrN41yPSPdMKToX4XkOZIpIhE+Kf8QMFGrzZ LsDB2NQklQ8VfhM+NIEv5+9n5Uod38f0UWhBy0ilxBvLSDysIK4DvDkW7KcDMKPGYSA1j++vNrnKemqY mjYtX9yz4vkiA2c6olqxpnRmN25xvyW4cHKSi74+XP LHWG7c25320NB33gt0Sqa9JISUAysykIG7Dzcge1oKRV5LbetKm2NcvJQw+A5g0eM1h+GE3e/PMnMfpV KFUdSeg9C2DBluL4MJ00mAZB5heBhmDgBzuTLO7xsnohbaHAvvvzNFUKapLxhAiFioUg/PKmAOtBMndY mvEAEggvCc1LxWT5FRqFqHAVREYqZfAmluB+dRa6tH xXLsV+Ur4JoYGRrtNy4dJJ9IS36GnmmA+AOh70RoCAmuwbkv6jv+BHRgjQqTBkQggQzektj3yzf19/W9 iqBgzT4bhHrKhQv1yAzXTulF2GtLYcg/nMKwAPYo7u+/gmGT/cTq/z0mOkj6IJ3GTg1t5avU00k+Rq4O dUi0hHEWe4CR9JCrIktQF9p5upenKfOKpHs5Z300Bf 0qPDMX5T7Z12C51eUIJFXiN7EdIeSuq9KC3m5fKIFzW0EE+MopYdSv9surnU0OY7jXsN5ivHERkj8I3S 1mXrqE2KnHOW77X9cEVqYcORqt13s9Vz307iDT7F4mdo0A5Hm5jyz6u253hvcJwO3qW7xEZzp+2dwLMd 7cFHdEswegetVuEPHi6g0poCg+PYBbLT+NF53kAsza HKYe1t7F8jXfCwyAxx5jJQgP03Hfdl+9DqsyQM7C0wdwTi2bMPD4JQLCCN0KbOYKkqGYZC6DLqPkIsqu uj8M1JRpexkEa01VAadb+B9kK6OUemc6Zv8zb033LuZnP+RkLvVaLhcn/UkmtT96G5gXYRaGlIS0XnPG MZJSXU+xKsNYxMJgXWIYKfcTJayxHOJQufIdhjaRyh [file] T9SnhkTEN8S5T+TW7nSOn+Ha5Bb9LycyN4wiGkZVgzPDQkHY9QEEYLO4FTBu== ID Date Data Source [id number] 10/08/2019 01:36:49 PM EDT [facility] CT HEAD WITHOUT CONTRAST [id number] RESU LTInterpreted by:Adolfo Martini MD10/08/2019 10:[address] HEAD WITHOUT CONTRAST [id number] CLINICAL INFORMATION: seizures,known mass TECHNIQUE: CT of [...] rce(s) Supporting Document(s) ID Date Data Source [id number] 10/08/2019 11:52:51 AM [facility] Value Range Interpretation Code Description Data Karoline rce(s) Supporting Document(s) pH of Venous blood 7.46 7.36-7.41 [facility] Carbon dioxide [Partial pressure] in Venous blood 40 mmHg 40-45 [facility] Oxygen [Partial pressure] in Venous blood 33 mmHg [facility] Base excess standard in Venous blood by calculation 4 mmol/L [facility] Oxygen saturation Calculated from oxygen partial pressure in Venous blood 67 % 60-85 [facility] Lactate [Moles/volume] in Venous blood 1.6 mmol/L 0.5-2.2 [facility] Bicarbonate [Moles/volume] in Venous blood 29 mmol/L [facility] ID Date Data Source [id number] 10/08/2019 10:46:10 AM [facility] Name Value Range Interpretation Code Description Data Karoline rce(s) Supporting Document(s) Leukocytes [#/volume] in Blood by Automated count 12.1 10*3/uL 4-10 H [facility] Erythrocytes [#/volume] in Blood by Automated count 4.01 10*6/uL 4.1- 5.3 L [facility] Hemoglobin [Mass/volume] in Blood 12.4 g/dL 11.5-15.5 [facility] Hematocrit [Volume Fraction] of Blood by Automated count 36.3 % 3 6-45 [facility] Erythrocyte mean corpuscular volume [Entitic volume] by Auto mated count 90.6 fL 80-96 [facility] Erythrocyte mean corpuscular hemoglobin [Entitic mass] by Automated count 31.0 pg 27-33 [facility] Erythrocyte mean corpuscular hemoglobin concentration [Mass/volume] by Automated count 34.2 g/dL 32.0-36.0 [facility] distribution width [Ratio] by Automated count 15.5 % 11.5-14.5 H [facility] Platelets [#/volume] in Blood by Automated count 216 10*3/uL 150-400 [facility] Differential cell count method - Blood [facility] Neutrophils/100 leukocytes in Blood by Automated count 92 % [facility] Lymphocytes/100 leukocytes in Blood by Automated count 5 % [facility] Monocytes/100 leukocytes in Blood by Automated count 2 % [facility] Eosinophils/100 leukocytes in Blood by Automated count 0 % [facility] Basophils/100 leukocytes in Blood by Automated count 1 % [facility] Neutrophils [#/volume] in Blood by Automated count 11.27 10*3/uL 1.8- 7.0 H [facility] Lymphocytes [#/volume] in Blood by Automated count 0.59 10*3/uL 1.2-4 .0 L [facility] Monocytes [#/volume] in Blood by Automated count 0.19 10*3/uL 0-0.8 [facility] Eosinophils [#/volume] in Blood by Automated count 0.01 10*3/uL 0-0.5 [facility] Basophils [#/volume] in Blood by Automated count 0.06 10*3/uL 0-0.2 [facility] Nucleated erythrocytes/100 leukocytes [Ratio] in Blood by Automated count 0 /100{WBCs} 0-0 [facility] ID Date Data Source [id number] 10/08/2019 11:27:23 AM [facility] Name Value Range Interpretation Code Description Data Karoline rce(s) Supporting Document(s) Phenytoin [Mass/volume] in Serum or Plasma 8.2 ug/ml 10-20 [facility] ID Date Data Source [id number] 10/08/2019 11:31:53 AM [facility] Name Value Range Interpretation Code Description Data Karolnie rce(s) Supporting Document(s) Albumin [Mass/volume] in Serum or Plasma by Bromocresol green (BCG) dye binding method 3.5 g/dL 3.5-5.2 [facility] Bilirubin.total [Mass/volume] in Serum or Plasma 0.8 mg/dL <1.2 [facility] Bilirubin.direct [Mass/volume] in Serum or Plasma 0.2 mg/dL <0.3 [facility] Alkaline phosphatase [Enzymatic activity/volume] in Serum or Plasma 66 U/L 35-104 [facility] Aspartate aminotransferase [Enzymatic activity/volume] in Serum or Plasma 26 U/L <32 [facility] Alanine aminotransferase [Enzymatic activity/volume] in Seru m or Plasma 21 U/L <33 [facility] Protein [Mass/volume] in Serum or Plasma 5.5 g/dL 6.4-8.3 [facility] ID Date Data Source [id number] 10/08/2019 11:31:53 AM [facility] Value Range Interpretation Code Description Data Karoline rce(s) Supporting Document(s) Bicarbonate [Moles/volume] in Serum 28 mmol/L 22-29 [facility] Chloride [Moles/volume] in Serum or Plasma 102 mmol/L 98-107 [facility] Creatinine [Mass/volume] in Serum or Plasma 0.66 mg/dL 0.50-0.90 [facility] Glucose [Mass/volume] in Serum or Plasma 111 mg/dL 70-140 [facility] Potassium [Moles/volume] in Serum or Plasma 2.8 mmol/L 3.4-5.1 [facility] Results called to and read back by ODALYS MONTERROSO MODELING ANALYST ADULT [phone] Sodium [Moles/volume] in Serum or Plasma 142 mmol/L 136-145 [facility] Urea nitrogen [Mass/volume] in Serum or Plasma 8 mg/dL 6-20 [facility] Anion gap 3 in Serum or Plasma 12 mmol/L 8-15 [facility] Osmolality of Serum or Plasma by calculation 293 mosm/kg 275-300 [facility] Creatinine/Urea nitrogen [Mass Ratio] in Serum or Plasma 12 [facility] Calcium [Mass/volume] in Serum or Plasma 8.6 mg/dL 8.6-10.0 [facility] Glomerular filtration rate/1.73 sq M pre dicted among non-blacks [Volume Rate/Area] in Serum or Plasma by Creatinine-based formula (MDRD) >6 0 [facility] Glomerular filtration rate/1.73 sq M pre dicted among blacks [Volume Rate/Area] in Serum or Plasma by Creatinine-based formula (MDRD) >60 [facility] ID Date Data Source [id number] 10/08/2019 11:31:53 AM [facility] Name Value Range Interpretation Code Description Data Karoline rce(s) Supporting Document(s) Thyrotropin [Units/volume] in Serum or Plasma 2.220 u[IU]/mL 0.270-4. 200 [facility] ID Date Data Source [id number] 10/10/2019 01:06:31 PM [facility] Name Value Range Interpretation Code Description Data Karoline rce(s) Supporting Document(s) Zonisamide [Mass/volume] in Serum or Plasma 6.7 ug/mL 10.0-40.0 L [facility] (NOTE)This test was developed and its pe rformance characteristicsdetermined by [employer]. It has not been cleared or approvedby the Food and Drug Administration. Detection Limit = 1.0Performed At: [facility] [place], [place] [id number] Ruiz MD Ph:[phone] ID Date Data Source [id number] 10/08/2019 12:47:01 PM [facility] Service Cmnt XXX-Imp : NoneMicroorganism XXX Cult : 2019 nCoV Real-Time RT-PCR: NOT DETECTEDTest performed using the [employer] Xpert Xpress SARS-CoV-2 assay. This test is only for use under the Food and Drug Administration's Emergency Use Authorization. Additional information is available on the following FDA websites for health care providers and patients. https://www.fda.gov/media/445674/download , https://www.[employer].gov/media/314572/download Name Value Range Interpretation Code Description Data Karoline rce(s) Supporting Document(s) ID Date Data Source [id number] 10/08/2019 10:05:00 AM EDT [facility] Service Cmnt XXX-Imp : NoneMicroorganism XXX Cult : 2019 nCoV Real-Time RT-PCR: NOT DETECTEDTest performed using the [employer] Xpert Xpress SARS-CoV-2 assay. This test is only for use under the Food and Drug Administration's Emergency Use Authorization. Additional information is available on the following FDA websites for health care providers and patients. https://www.fda.gov/media/428420/download , https://www.[employer].gov/[employer]/824415/download Name Value Range Interpretation Code Description Data Karoline rce(s) Supporting Document(s) Microorganism identified in Unspecified specimen by [facility] This lab was ordered by [facility] and reported by [facility]. ID Date Data Source [id number] 10/08/2019 02:13:34 PM EDT [facility] Name Value Range Interpretation Code Description Data Karoline rce(s) Supporting Document(s) Levetiracetam [Mass/volume] in Serum or Plasma 12-46 L [facility] ID Date Data Source [id number] 10/08/2019 05:29:00 AM EDT [address] [address] ---------NAME--------- NUMBER SEX AGE ADMIT DISC. XRAY# F/C TYPE MACY Brown [id number] F 54 10/08/19 [id number] E/R DATE OF : 1965 M/R# [id number] #: [id number] TR-06 LOCATION: TRANSCRIBED: 10/08/19 5:[address] HEAD W/O CONTRAST [id number] COMPLETED:10/08/19 5:05 RLB [id number] Reason(s): Altered Mental Status Syncope PHYSICIAN: YOSELIN [...] rce(s) Supporting Document(s) ID Date Data Source [id number] 10/13/2019 07:00:[address] [facility] [address] Name Value Range Interpretation Code Description Data Karoline rce(s) Supporting Document(s) Bacteria identified in Blood by Culture [facility] NO GROWTH AFTER 5 DAYS ID Date Data Source [id number] 10/14/2019 12:39:00 PM EDT [facility] Name Value Range Interpretation Code Description Data Karoline rce(s) Supporting Document(s) CULTURE BLOOD [facility] spital _CULTURE BLOOD_ TEST PERFORM ED AT [address] [address] CLIA# [id number] SEE SCANNED REPORT{ PRELIM ID Date Data Source [id number] 10/14/2019 12:39:00 PM EDT [facility] Name Value Range Interpretation Code Description Data Karoline rce(s) Supporting Document(s) CULTURE BLOOD [facility] _CULTURE BLOOD_ TEST PERFORM ED AT [address] [address] CLIA# [id number] SEE SCANNED REPORT{ PRELIM ID Date Data Source [id number] 10/08/2019 04:16:00 AM EDT [facility] Name Value Range Interpretation Code Description Data Karoline rce(s) Supporting Document(s) COMPREHENSIVE METABOLIC PANEL [facility] COMPREHENSIVE METABOLIC PANEL Sodium [Moles/volume] in Serum or Plasma 141 mEq/L 134 - 153 [facility] Potassium [Moles/volume] in Serum or Plasma 2.7 mEq/L 3.6 - 5.0 [facility] CALL/ READ BACK DR [facility] BY: ROBB [facility] DATE/TIME 414 AM [facility] spital Chloride [Moles/volume] in Serum or Plasma 99 mEq/L 98 - 107 [facility] Carbon dioxide, total [Moles/volume] in Serum or Plasma 30 MEQ/L 22 - 30 [facility] Glucose [Mass/volume] in Serum or Plasma 88 MG/DL 65 - 110 [facility] BUN 11 MG/DL 7 - 21 [facility] al Creatinine [Mass/volume] in Serum or Plasma 0.7 MG/DL 0.7 - 1.5 [facility] BUN/CREAT 16 8 - 27 [facility] Protein [Mass/volume] in Serum or Plasma 5.4 G/DL 6.3 - 8.2 L [facility] Albumin [Mass/volume] in Serum or Plasma 3.8 G/DL 3.9 - 5.0 L [facility] Globulin [Mass/volume] in Serum by calculation 1.6 GM/DL 2.4 - 3.2 L [facility] A/G RATIO 2.4 0.8 - 2.0 H [facility] Calcium [Mass/volume] in Serum or Plasma [...] - 16.0 [facility] 54 [facility] >60 mL/min [facility] AFR AMER GFR >60 mL/min [facility] Male GFR In terprentation [...] >32 mL/min Normal ID Date Data Source [id number] 10/08/2019 04:16:00 AM EDT [facility] Name Value Range Interpretation Code Description Data Karoline rce(s) Supporting Document(s) Lipase [Enzymatic activity/volume] in Serum or Plasma 46 U/L 13 - 60 [facility] ID Date Data Source [id number] 10/08/2019 04:14:00 AM [facility] Name Value Range Interpretation Code Description Data Karoline rce(s) Supporting Document(s) TROPONIN T <0.01 NG/ML 0.00 - 0.10 [facility] ospital TROPONIN T0.1 ng/ml Recommended as the c linical threshold value forTroponin T. ID Date Data Source [id number] 10/08/2019 03:49:00 AM [facility] Name Value Range Interpretation Code Description Data Karoline rce(s) Supporting Document(s) Lactate [Moles/volume] in Serum or Plasma 4.1 MMOL/L 0.2 - 2.2 [facility] CALL/ READ BACK [facility] BY: LSA [facility] DATE/TIME [id number] 1899 AM [facility]spital ID Date Data Source [id number] 10/08/2019 03:48:00 AM [facility] Name Value Range Interpretation Code Description Data [...] %IG 2.6 % 0.0 - 0.0 [facility] %NRBC 0.0 % 0.0 - 0.0 [facility] al Neutrophils [#/volume] in Blood by [...] #IG 0.31 10^3/uL 0.00 - 0.10 H [facility] #NRBC 0.00 10^3/uL 0.00 - 0.00 [facility] MANUAL DIFF NOT INDICATED [facility] RBC MORPH NOT INDICATED [facility] sp[facility] Procedure Social History Code Duration Value Status Description Data Source(s ) Alcohol intake 01/29/2020 12:00:00 AM EST Ex-drinker (finding) comp leted Ex- drinker (finding) [facility] Tobacco use and exposure 01/29/2020 12:00:00 AM EST Never used co mpleted Never used [facility] Smoking 01/29/2020 12:00:00 AM EST Never smoker completed Never s caker [facility] Alcohol intake 01/15/2020 12:00:00 AM EST Ex-drinker (finding) comp leted Ex- drinker (finding) [facility] Alcohol intake 12/19/2019 12:00:00 AM EDT Ex-drinker (finding) comp leted Ex- drinker (finding) [facility] Alcohol intake 12/03/2019 12:00:00 AM EDT Ex-drinker (finding) comp leted Ex- drinker (finding) [facility] Alcohol intake 11/27/2019 12:00:00 AM EDT Ex-drinker (finding) comp leted Ex- drinker (finding) [facility] Alcohol intake 10/15/2019 12:00:00 AM EDT Ex-drinker (finding) comp leted Ex- drinker (finding) [facility] Vital Signs ID Date Data Source [id number] 01/01/2020 03:43:38 PM [facility] Name Value Range Interpretation Code Description Data Source(s) WEIGHT RECORDED 220 lb 220 lb [facility] Body height Measured [address] [facility] TRANSFER FROM [facility] ID Date Data Source [id number] 11/03/2019 10:19:16 PM [facility] Name Value Range Interpretation Code Description Data Source(s) Body height Measured [address] [facility] ID Date Data Source [id number] 10/19/2019 12:08:48 PM [facility] Name Value Range Interpretation Code Description Data Source(s) WEIGHT RECORDED 222.1 lb 222.1 lb [facility] Body height Measured [address] [facility] WEIGHT RECORDED 222.1 lb 222.1 lb [facility] Body height Measured [address] [facility] Patient Treatment Plan of Care Planned Activity Planned Date Details Description Data Source (s) traZODone HCl 50 MG 04/15/2020 12:00:00 AM EST [facility]) Gait/Transfer Belt 04/15/2020 12:00:00 AM EST [facility] ([facility]) Calcium Carbonate-Vitamin D 600-200 MG-UNIT 04/15/2020 12:00:00 AM EST [facility] ([facility]) Underpads Extra Large 04/15/2020 12:00:00 AM EST [facility] ([facility]) Depend Silhouette Briefs L/XL 04/15/2020 12:00:00 AM EST [facility] ([facility]) Zonisamide 100 MG 04/15/2020 12:00:00 AM EST [facility] ([facility]) Omeprazole 20 MG 04/15/2020 12:00:00 AM EST [facility]) Keppra 500 MG 04/15/2020 12:00:00 AM EST [facility] ([facility]) Dexamethasone 4 MG 04/15/2020 12:00:00 AM EST [facility] ([facility]) Ergocalciferol 03764 UNT Oral Capsule 12/28/2019 12:00:00 AM [facility] POLYETHYLENE GLYCOL 3350 142 MG/ML Oral Solution 12/25/2019 09:00:0 0 AM [facility] 0.4 ML Enoxaparin sodium 100 MG/ML Prefilled Syringe 09:00:00 AM [facility] 0.4 ML Enoxaparin sodium 100 MG/ML Prefilled Syringe 10/20/2 020 12:00:00 AM [facility] Docusate Sodium 56.6 MG/ML Enema 12/24/2019 10:53:45 AM [facility] Calcium Citrate 950 MG Oral Tablet 12/24/2019 12:00:00 AM [facility] Cholecalciferol 1000 UNT Oral Tablet 12/24/2019 12:00:00 AM [facility] Cholecalciferol 1000 UNT Oral Tablet 12/24/2019 12:00:00 AM [facility] Calcium Citrate 950 MG Oral Tablet 12/24/2019 12:00:00 AM [facility] sodium chloride (preservative free) 0.9 % flush 10 mL 12/22/2019 04:40:00 PM [facility]spital lidocaine (XYLOCAINE) 1 % injection 5 mL 12/22/2019 04:40:00 PM [facility] dextrose 50 % IV solution 25 mL 12/21/2019 01:33:36 PM [facility] Glucagon 1 MG Injection 12/21/2019 01:33:36 PM [facility] Glucose 0.417 MG/MG Oral Gel 12/21/2019 01:33:36 PM [facility] sennosides, [facility] 8.6 MG Oral Tablet 12/20/2019 01:00:07 AM [facility] traZODone HCl 50 MG 10/29/2019 01:00:00 AM [facility]) Temozolomide 20 MG 10/26/2019 01:00:00 AM [facility]) Temozolomide 140 MG 10/26/2019 01:00:00 AM [facility]) temozolomide 20 MG Oral Capsule 10/23/2019 12:00:00 AM [facility] temozolomide 140 MG Oral Capsule 10/23/2019 12:00:00 AM [facility] Zonisamide 100 MG 10/22/2019 01:00:00 AM [facility]) Bactrim DS 800-160 MG 10/22/2019 01:00:00 AM [facility]) Prochlorperazine Maleate 10 MG 10/22/2019 01:00:00 AM [facility]) Ondansetron HCl 8 MG 10/22/2019 01:00:00 AM [facility]) Omeprazole 40 MG 10/22/2019 01:00:00 AM [facility]) LevETIRAcetam 500 MG 10/22/2019 01:00:00 AM [facility]) Dexamethasone 4 MG 10/22/2019 01:00:00 AM [facility]) temozolomide 20 MG Oral Capsule 10/19/2019 12:00:00 AM [facility] Ondansetron 4 MG Oral Tablet 10/15/2019 12:00:00 AM [facility] Sulfamethoxazole 800 MG / Trimethoprim 160 MG Oral Tab let 10/13/2019 12:00:00 AM [facility]ital Dexamethasone 4 MG Oral Tablet 10/12/2019 12:00:00 AM [facility] Levetiracetam 500 MG Oral Tablet 10/12/2019 12:00:00 AM [facility] Omeprazole 40 MG Delayed Release Oral Capsule 10/12/2019 12:00:00 A M [facility]
[2020-04-18] MEDS ORDERED: NS 500 ML IV ONE (04:15)
[2020-04-18] MEDS: PIPERACILLIN/TAZOBACTAM SOD 4.5 GM in D5W MINI-BAG PLUS 50 ML IV SCH ×2 (05:00→11:33)
--- NOTE | 2020-04-18 05:55 | HPEPDOC ---
General Date of Admission Apr 18, 2020 at 03:49 Date of Service: Apr 18, 2020 Chief Complaint The patient is a 54-year-old female admitted with a reason for visit of Covid+,Sepsis,Uti. Source: Family History of Present Illness Mrs. Grady is a 54 year old female with history of stage IV brain cancer who is here for fever and AMS and found to have sepsis 2/2 UTI. She is DNR/DNI, but full treatment. Son is HCP (Sheldon Ellington [phone]). He told me it would be okay for a central line if she needs one. She had broken her foot and has been at a assisted for about 5 months. Family was expecting that she was receiving physical therapy and was trying to regain her strength. When they recently saw her, she was not doing well. She was mostly in bed and had bruises all over her. They signed her out of the assisted against medical advice. She has been at home for a few days. She was able to rotate side to side for the family sometimes. Yesterday, her home nurse visited and patient had a fever of 104.5 and urged her to go to the ED for evaluation. When she was in the ED, she was lethargic and moaning. She did not respond to my questions. When I spoke with the son, he said they just got her at home and working on getting equipment. They are hoping to work on physical therapy at home and try to improve her status. He said the urine was "clotting", but did not say that there was any blood. Otherwise, she did test COVID positive. About a month ago, she had supposedly had her first COVID vaccine. Unsure if she had a second. While in the ED, her BP dropped to 72/36 with a map of 58. She was given 30mL/kg of fluid of which she responded to. She will be admitted for sepsis secondary to UTI and COVID positive. Home Medications Scheduled Calcium Carbonate/Vitamin D3 (Calcium 500-Vit D3 200 Tablet) 1 Each Tablet, 1 TAB PO BID, (Reported) Dexamethasone (Dexamethasone) 4 Mg Tablet, 4 MG PO BID, (Reported) Enoxaparin Sodium (Enoxaparin Sodium) 40 Mg/0.4 Ml Syringe, 40 MG SC DAILY, (Reported) Ergocalciferol (Vitamin D2) (Vitamin D2) 50,000 Units Cap, 50,000 UNITS PO 1XWK, (Reported) TUESDAY Levetiracetam (Keppra) 500 Mg Tablet, 1,000 MG PO BID, (Reported) Omeprazole (Omeprazole) 20 Mg Capsule.dr, 20 MG PO DAILY, (Reported) Temozolomide (Temozolomide) 20 Mg Capsule, 20 MG PO DAILY, (Reported) TAKES WITH 140MG FOR 160MG TOTAL Temozolomide (Temozolomide) 140 Mg Capsule, 140 MG PO DAILY, (Reported) TAKES WITH 20MG FOR 160MG TOTAL Trazodone HCl (Trazodone HCl) 50 Mg Tablet, 50 MG PO QHS, (Reported) Zonisamide (Zonisamide) 100 Mg Capsule, 200 MG PO BID, (Reported) Scheduled PRN Prochlorperazine Maleate (Prochlorperazine Maleate) 10 Mg Tablet, 10 MG PO Q6H PRN for NAUSEA, (Reported) Miscellaneous Medications [Patient Comment] , (Reported) MED REC COMPLETED VIA EXTERNAL MED HISTORY, CALLING PHARMACY AND PRESCRIPTION BOTTLES Allergies Coded Allergies: acetaminophen (Verified Allergy, Unknown, 04/17/20) hydrocodone (Verified Allergy, Unknown, 04/17/20) latex (Verified Allergy, Unknown, 04/17/20) Past Medical History Medical History 1. Stage IV brain cancer 2. Hypertension 3. Asthma 4. GERD 5. Depression Surgical History 1. Cholecystectomy 2. x2 3. D&C 4. Tubal ligation Family History Unable to obtain due to AMS Social History * Smoker: other (unknown due to AMS) Alcohol: other (Unknown due to AMS) Drugs: other (Unknown due to AMS) A-FIB/CHADSVASC A-FIB History Current/History of A-Fib/PAF?: No Review of Systems Other systems Unable to obtain due to AMS Physical Examination General Exam: Negative: Alert, Cooperative Eye Exam: Negative: Sclera icteric Chest Exam: Positive: Clear to auscultation Heart Exam: Positive: Tachycardic, Regular Rhythm Abdomen Exam: Positive: BS Hypoactive, Soft Extremity Exam: Positive: Edema (bilateral pitting) Skin Exam: Positive: Other skin issue (bruising on arms) Neuro Exam: Positive: Other (unable to perform due to lethargy and AMS) Psych Exam: Negative: Mental status NL, Mood NL Vital Signs Vital Signs Date Time Temp Pulse Resp B/P (MAP) Pulse Ox O2 Delivery O2 Flow Rate FiO2 04/18/20 04:13 78 110/55 (73) 94 Room Air 04/18/20 04:00 98.5 32 1.0 Laboratory Data Labs 24H Laboratory Tests 2 04/17/20 21:58: Neutrophils (%) (Auto) , Nucleated Red Blood Cells % (auto) 0.0, Neutrophils 82H, Band Neutrophils 13H, Lymphocytes (Manual) 2L, Metamyelocytes 3H, Toxic Vacuolation 2+, Platelet Estimate DECREASED, Clumped Platelets SMALL AMT, Immature Platelet Fraction 3.4, Prothrombin Time 14.2H, Prothromb Time International Ratio 1.08, Activated Partial Thromboplast Time 20.0L, Fibrinogen 844H, D-Dimer, Quantitative > 4000H, Urine Color YELLOW, Urine Appearance TURBIDH, Urine pH 5.0, Urine Specific Merkel 1.017, Urine Protein 2+H, Urine Glucose (UA) 3+H, Urine Ketones NEGATIVE, Urine Blood 2+H, Urine Nitrite POSITIVEH, Urine Bilirubin NEGATIVE, Urine Urobilinogen 2.0H, Urine Leukocyte Esterase 3+H, Urine WBC (Auto) TNTCH, Urine RBC (Auto) TNTCH, Urine Hyaline Casts (Auto) 0, Urine Bacteria (Auto) 2+H, Urine Squamous Epithelial Cells 1, Urine Transitional Epithelial Cells 1, Urine Yeast-Like Cells (Auto) LARGEH, Urine Sperm (Auto) , Anion Gap 13, Glomerular Filtration Rate 40.7L, Lactic Acid Level 5.3*H, Calcium Level 9.4, Total Bilirubin 1.0, Direct Bilirubin 0.5H, Aspartate Amino Transf (AST/SGOT) 97H, Alanine Aminotransferase (ALT/SGPT) 129H, Alkaline Phosphatase 352H, Total Creatine Kinase 34, Creatine Kinase MB < 1.0, Creatine Kinase MB Relative Index 2.94, Troponin I < 0.02, Total Protein 6.3L, Albumin 1.9L, Albumin/Globulin Ratio 0.4L, Amylase Level 56, Lipase 198, Coronavirus (COVID-19)(PCR) POSITIVEA, Influenza Type A (RT-PCR) NEGATIVE, Influenza Type B (RT-PCR) NEGATIVE, Respiratory Syncytial Virus (PCR) NEGATIVE 04/18/20 00:41: 04/18/20 00:42: POC pH (Misc Panel) 7.379, POC Base Excess (Misc Panel) -7.0L, POC Saturated Percent O2 (Misc) 97, POC pO2 (Misc Panel) 92.0, POC pCO2 (Misc Panel) 30.5L, POC HCO3 (Misc Panel) 18.0L, POC Total CO2 (Misc Panel) 19.0L 04/18/20 02:00: Lactic Acid Level 1.2 CBC/BMP Laboratory Tests 04/17/20 21:58 Microbiology Microbiology 04/18/20 Blood Culture, Received Pending 04/17/20 Urine Culture, Received Pending 04/17/20 Blood Culture, Received Pending Assessment/Plan Mrs. Grady is a 54 year old female with history of stage IV brain cancer who is here for fever and AMS and found to have sepsis 2/2 UTI and is also COVID positive. She was recently in assisted for 5 months for broken foot, but family recently signed her out against medical advice since they were not working with her with PT. Family was obtaining home PT equipment, but patient was then found to have sepsis 2/2 UTI. She is also COVID positive. We will treat her sepsis with IVF and Zosyn. Pending urine culture results and blood cultures results. Patient's HCP is son. Sheldon Ellington, Plan / VTE VTE Prophylaxis Ordered?: Yes Plan Plan 1. Sepsis 2/2 UTI -Pending urine culture and blood culture results -On Zosyn and IVF 2. COVID infection -Supportive care -Droplet and contact precautions -She is on steroids at home. Continue dexamethasone 3. Stage IV brain cancer -On Temozolomide at home and Keppra -Hold Temozolomide due to infection -Continue Keppra, pending level 4. GERD -Continue omeprazole 5. Debility -She is bed bound -Will order OT 6. DVT ppx -Lovenox EDMUND BAUTISTA DO Apr 18, 2020 05:55
--- NOTE | 2020-04-18 07:37 | ECGEPIP ---
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
--- NOTE | 2020-04-18 08:01 | REP ---
INDICATION: Tachypnea. COMPARISON: Comparison chest x-ray 17 April 2020. TECHNIQUE: Portable upright AP chest radiograph. FINDINGS: Monitoring electrodes and oxygen delivery tubing are seen. There are patchy bilateral interstitial infiltrates, more pronounced than on yesterday's radiograph. Pleural angles are sharp. Heart size is unchanged and borderline. No bony abnormality.. IMPRESSION: Patchy bilateral interstitial infiltrates, consistent with pneumonia.. <Electronically signed by Rafat Kate > 04/18/20 2010
[2020-04-18 08:02] LABS: FERRITIN 1745 NG/ML (8-252)
[2020-04-18 08:21] LABS: HEMATOCRIT 28.5 % (36.0-47.0); MEAN CORPUSCULAR HEMOGLOBIN 30.8 pg (27.0-33.0); MEAN CORPUSCULAR HGB CONC 30.9 g/dl (32.0-36.5); MEAN CORPUSCULAR VOLUME 99.7 fl (80.0-96.0); RED BLOOD COUNT 2.86 10^6/uL (4.00-5.40); WHITE BLOOD COUNT 9.8 10^3/uL (4.0-10.0)
[2020-04-18 08:22] LABS: HEMOGLOBIN 8.8 g/dl (12.0-15.5); PLATELET COUNT, AUTOMATED 83 10^3/uL (150-450)
[2020-04-18] MEDS: NYSTATIN 100,000 UNITS/GM TOPICAL PWD 15 GM TOP SCH ×2 (08:33→23:00)
[2020-04-18 08:35] LABS: LYMPHOCYTES 5 % (16-44); MONOCYTES 1 % (0-5); NEUTROPHILS 87 % (28-66)
[2020-04-18 08:36] LABS: PLATELET ESTIMATE DECREASED (NORMAL)
[2020-04-18] MEDS ORDERED: PANTOPRAZOLE 40MG VIAL (C9113 PER 1) IV SCH (09:00)
[2020-04-18] MEDS ORDERED: dexameTHASONE 4 MG/ML 1ML VIAL (J1100 PER 1MG) IV SCH (09:00)
[2020-04-18] MEDS ORDERED: ENOXAPARIN 40MG/0.4ML SYRINGE (J1650 PER 10MG) SC SCH (09:00)
[2020-04-18] MEDS ORDERED: dexameTHASONE 20MG/5ML VIAL (J1100 PER 1MG) IV SCH (09:00)
[2020-04-18 09:02] LABS: ALBUMIN 1.6 GM/DL (3.2-5.2); BILIRUBIN,TOTAL 0.4 MG/DL (0.2-1.0); C REACTIVE PROTEIN QUANTITATIV 21.8 MG/DL (0.00-0.30); CALCIUM LEVEL 7.5 MG/DL (8.5-10.1); CREATININE FOR GFR 1.19 MG/DL (0.55-1.30); GLOMERULAR FILTRATION RATE 50.7 (>51); MAGNESIUM LEVEL 1.4 MG/DL (1.8-2.4); TOTAL PROTEIN 4.6 GM/DL (6.4-8.2)
[2020-04-18] MEDS: KCL 10MEQ/100ML SWI (KRUN) 10 MEQ in IV 1 EA IV SCH ×3 (10:15→13:44)
[2020-04-18] MEDS: MAG SULF 1GM/100ML (MAG RUN) 1 GM in IV 1 EA IV SCH ×3 (10:16→12:31)
[2020-04-18] MEDS ORDERED: PROCHLORPERAZINE 5 MG TAB (S0183) PO PRN (13:45)
[2020-04-18] MEDS ORDERED: SCOPOLAMINE 1MG TRANSDERMAL PATCH TOP PRN (13:45)
[2020-04-18] MEDS: LORazepam 1 MG TAB PO PRN ×4 (14:32→22:43)
[2020-04-18] MEDS: MORPHINE 10MG/0.5ML ORAL CONCENTRATE SOLUTION U/D SL PRN ×2 (15:14→17:00)
--- NOTE | 2020-04-18 15:37 | IPNPDOC ---
Text Note Date of Service The patient was seen on 04/18/20. NOTE Subjective: Patient is 55-year-old female who presented to the hospital, brought in by family for was reported as altered mental status and abnormal urine. Upon arrival to emergency room, patient was found to be hypotensive, tachycardic, abnormal UA and CT imaging with evidence of L ureteral obstructing stone. Patient was found to be positive for COVID19 in the ER. Patient was admitted to the hospital service for further evaluation and treatment. Of called and discussed the case with her son, Sheldon Ellington ([phone]). He's provided me with extensive history about what has transpired over the last several months. Patient was diagnosed with left sided brain tumor in [facility] approximately 3-4 years ago. Patient was receiving therapy at home, but was slowly beginning to develop right-sided weakness, however, continue to use a walker at baseline. Patient was evaluated by her oncologist in [place] was advised that she should pursue surgery, russell, had refused at that time. Approximately 3-4 months ago patient had developed a right foot fracture requiring intervention and patient was subsequently transitioned to [facility] for further therapy. During the duration of her stay (~ 4 months) at [facility], patient had a decline in her status and it was reported that he was not participating with PT or OT. Son is reported that she was unable to keep any of her follow-up appointments with her [place] oncologist (Dr. Ruelas). Patient was ultimately signed out AGAINST MEDICAL ADVICE approximately 1 week ago from the rehabilitation facility to home with her family. Patient was at home for approximately one week before she had worsening mentation and found to have abnormal urine, which brought her to the emergency room for further evaluation. On discussion with the son on 04/18 morning, we have reviewed the lab work from [facility] and patient was found to be positive for COVID19 on 03/17. After discussing what has been found on imaging and lab work, patient will likely require a left ureteral stent to help alleviate an obstructing stone. At this point family wanted to transition to comfort measures. I have advised him that her focus will now be focusing on her comfort without any aggressive interventions (including lab work imaging, vital signs, or procedures). A new MOLST form has been created. Patient was seen and examined at the bedside. Patient appears to be comfortable, does not appear to be moving any of her right side appears to be very tearful in the room, unable to verbalize. Has some ability to follow commands. Objective: Vitals (See below) General: Lying in bed, appears tearful but not in pain, wakes to stimuli, but drowsy HEENT: NC, AT CVS: +S1S2 Lungs: Fair air entry b/l, -w/r/r Abdomen: Soft, ND, NT Extremities: 1+ edema, - Calf tenderness Neuro: Does not appear to be moving any of her R side, movement of L side noted Assessment and plan: Severe Sepsis with bacteremia Gram negative bacteremia Complicated UTI with obstructive stone Obstructive stone with hydronephrosis, possibility of pyelonephritis Acute metabolic encephalopathy - likely 2/2 sepsis and brain malignancy Stage IV brain cancer; follow with Dr. Ruelas ([place]); patient had refused surgery in the past Right sided hemiplegia - likely 2/2 brain malignancy COVID19 infection; asymptomatic - [facility]17[facility] Stage 2 Pressure ulcers at Buttock (R and L) Macrocytic anemia Thrombocytopenia - possibly 2/2 sepsis Acute renal failure Lactic acidosis Non Anion Gap metabolic acidosis Hyponatremia Hypokalemia Hypomagnesemia Hyperglycemia Severe protein calorie malnutrition Functional quadriplegia DVT prophylaxis Plan: - MOLST form updated on 04/18 - [employer] / DNR / DNI - Non-essential medications were discontinued - Medications for comfort alone were instituted - I have discussed the use of antibiotics in this setting; will continue with antibiotics for comfort for now - After discussion with the Son (Sheldon Ellington): [phone]; they would like to take their mother home with hospice as soon as possible VS,Fishbone, I+O VS, Fishbone, I+O Laboratory Tests 04/17/20 21:58 04/18/20 08:03 Vital Signs Date Time Temp Pulse Resp B/P (MAP) Pulse Ox O2 Delivery O2 Flow Rate FiO2 04/18/20 12:00 97.0 71 24 105/60 (75) 97 Nasal Cannula 1.0 I&O- Last 24 Hours up to 6 AM 04/18/20 06:00 Intake Total 3850 ml Output Total 150 ml Balance 3700 ml MAYCOL VIRK MD Apr 18, 2020 15:37
[2020-04-18] MEDS ORDERED: traZODone 50 MG TAB PO SCH (21:00)
[2020-04-18] MEDS: MORPHINE 2 MG/ML 1ML VIAL (J2270) IV PRN (22:43)
[2020-04-18] MEDS: traZODone 50 MG TAB PO SCH (22:43)
[2020-04-18] MEDS: ZONISAMIDE 100 MG CAP (ZONEGRAN) PO SCH ×2 (22:46→22:59)
[2020-04-18] MEDS ORDERED: LORazepam 2 MG/ML VIAL IV PRN (23:45)
[2020-04-19] MEDS: MORPHINE 2 MG/ML 1ML VIAL (J2270) IV PRN ×5 (04:17→23:16)
[2020-04-19] MEDS: LevoFLOXacin 500 MG TABLET PO SCH (06:00)
[2020-04-19] MEDS: ZONISAMIDE 100 MG CAP (ZONEGRAN) PO SCH ×2 (09:00→20:17)
[2020-04-19] MEDS: NYSTATIN 100,000 UNITS/GM TOPICAL PWD 15 GM TOP SCH ×2 (09:34→20:17)
[2020-04-19] MEDS: LORazepam 2 MG/ML VIAL IV PRN ×3 (09:34→23:14)
[2020-04-19] MEDS: traZODone 50 MG TAB PO SCH (20:17)
[2020-04-19] MEDS ORDERED: LORazepam 2 MG/ML VIAL As Ordered ONE ×2 (20:33→23:03)
[2020-04-20] MEDS: LevoFLOXacin 500 MG TABLET PO SCH (05:00)
[2020-04-20] MEDS ORDERED: LORazepam 2 MG/ML VIAL As Ordered ONE ×2 (05:46→13:22)
[2020-04-20] MEDS: MORPHINE 2 MG/ML 1ML VIAL (J2270) IV PRN ×3 (05:49→18:18)
[2020-04-20] MEDS: LORazepam 2 MG/ML VIAL IV PRN ×3 (05:49→19:59)
[2020-04-20] MEDS: ZONISAMIDE 100 MG CAP (ZONEGRAN) PO SCH ×2 (08:28→20:00)
[2020-04-20] MEDS: NYSTATIN 100,000 UNITS/GM TOPICAL PWD 15 GM TOP SCH ×2 (09:42→19:59)
[2020-04-20] MEDS: traZODone 50 MG TAB PO SCH (19:59)
[2020-04-21] MEDS: MORPHINE 2 MG/ML 1ML VIAL (J2270) IV PRN ×2 (00:20→04:46)
[2020-04-21] MEDS: LORazepam 2 MG/ML VIAL IV PRN ×2 (02:04→09:21)
[2020-04-21] MEDS: LevoFLOXacin 500 MG TABLET PO SCH (04:25)
[2020-04-21] MEDS: ZONISAMIDE 100 MG CAP (ZONEGRAN) PO SCH (09:00)
[2020-04-21] MEDS ORDERED: LORazepam 2 MG/ML VIAL As Ordered ONE (09:19)
[2020-04-21] MEDS: NYSTATIN 100,000 UNITS/GM TOPICAL PWD 15 GM TOP SCH (09:23)
[2020-04-21] MEDS ORDERED: ATIV1TAB10 PO (10:35)
[2020-04-21] MEDS ORDERED: HYOS125TA PO (10:35)
[2020-04-21] MEDS ORDERED: MORP20SO3 PO (10:35)
[2020-04-21] MEDS ORDERED: MORPHINE 10MG/0.5ML ORAL CONCENTRATE SOLUTION U/D SL PRN (10:45)
[2020-04-21] MEDS ORDERED: LORazepam 1 MG TAB PO PRN (10:45)
--- NOTE | 2020-04-21 12:33 | DS.PDOC ---
Discharge Summary General Date of Admission Apr 18, 2020 at 03:49 Date of Discharge 04/21/2020 Discharge Summary PROCEDURES PERFORMED DURING STAY: [None]. ADMITTING DIAGNOSES / DISCHARGE DIAGNOSES: Severe Sepsis with bacteremia Gram negative bacteremia Complicated UTI with obstructive stone Obstructive stone with hydronephrosis, possibility of pyelonephritis Acute metabolic encephalopathy - likely 2/2 sepsis and brain malignancy Stage IV brain cancer; follow with Dr. Ruelas ([place]); patient had refused surgery in the past Right sided hemiplegia - likely 2/2 brain malignancy COVID19 infection; asymptomatic - Positive on 03/17/20 at [facility] - verified on [facility] Stage 2 Pressure ulcers at Buttock (R and L) Macrocytic anemia Thrombocytopenia - possibly 2/2 sepsis Acute renal failure Lactic acidosis Non Anion Gap metabolic acidosis Hyponatremia Hypokalemia Hypomagnesemia Hyperglycemia Severe protein calorie malnutrition Functional quadriplegia DVT prophylaxis COMPLICATIONS/CHIEF COMPLAINT: Hypotension / Confusion HISTORY OF PRESENT ILLNESS / HOSPITAL COURSE: Patient is 55-year-old female who presented to the hospital, brought in by family for was reported as altered mental status and abnormal urine. Upon arrival to emergency room, patient was found to be hypotensive, tachycardic, abnormal UA and CT imaging with evidence of L ureteral obstructing stone. Patient was found to be positive for COVID19 in the ER. Patient was admitted to the hospital service for further evaluation and treatment. Of called and discussed the case with her son, Sheldon Ellington ([phone]). He's provided me with extensive history about what has transpired over the last several months. Patient was diagnosed with left sided brain tumor in [facility] approximately 3-4 years ago. Patient was receiving therapy at home, but was slowly beginning to develop right-sided weakness, however, continue to use a walker at baseline. Patient was evaluated by her oncologist in [place] was advised that she should pursue surgery, russell, had refused at that time. Approximately 3-4 months ago patient had developed a right foot fracture requiring intervention and patient was subsequently transitioned to [facility] for further therapy. During the duration of her stay (~ [address]) [address] [facility], patient had a decline in her status and it was reported that he was not participating with PT or OT. Son is reported that she was unable to keep any of her follow-up appointments with her [facility] oncologist (Dr. Ruelas). Patient was ultimately signed out AGAINST MEDICAL ADVICE approximately 1 week ago from the rehabilitation facility to home with her family. Patient was at home for approximately one week before she had worsening mentation and found to have abnormal urine, which brought her to the emergency room for further evaluation. On discussion with the son on 04/18 morning, we have reviewed the lab work from [facility] and patient was found to be positive for COVID19 on 03/17. After discussing what has been found on imaging and lab work, patient will likely require a left ureteral stent to help alleviate an obstructing stone. At this point family wanted to transition to comfort measures. I have advised him that her focus will now be focusing on her comfort without any aggressive interventions (including lab work imaging, vital signs, or procedures). A new MOLST form was created on 04/18. Discussed with son, Sheldon Ellington; plan will be for home with services under comfort measures. Unfortunately home with hospice will not be able to take part in her care until she tests negative for COVID19. I work with patient family services and discussed directly with patient's primary care provider who will be willing to take over hospice medications and continue with home health services renewals and requirements while the patient is at home under the family's care. She'll be transitioned home today. DISCHARGE MEDICATIONS: Please see below. ALLERGIES: Please see below. PHYSICAL EXAMINATION ON DISCHARGE: VITAL SIGNS: Please see below. GENERAL: Laying in bed, appears to be comfortable, not in any acute distress Full exam not completed DIET: As tolerated DISCHARGE PLAN / DISPOSITION: Home with comfort measures Will follow-up with primary care provider as needed for refills Please return to the ER if pain is uncontrolled DISCHARGE CONDITION: [Stable]. TIME SPENT ON DISCHARGE: 25 minutes Vital Signs/I&Os Vital Signs Date Time Temp Pulse Resp B/P (MAP) Pulse Ox O2 Delivery O2 Flow Rate FiO2 04/19/20 09:00 04/18/20 22:43 Room Air 04/18/20 12:00 97.0 71 24 105/60 (75) 97 l I&O- Last 24 Hours up to 6 AM 04/21/20 06:00 Intake Total 0 ml Output Total 175 ml Balance -175 ml Microbiology Microbiology 04/18/20 Blood Culture - Preliminary, Resulted No Growth after 72 hours. All specime... 04/17/20 Urine Culture - Final, Complete Escherichia Coli 04/17/20 Blood Culture - Final, Complete Escherichia Coli Discharge Medications Scheduled PRN Hyoscyamine Sulfate (Hyoscyamine Sulfate) 0.125 Mg Tab.subl, 0.125 MG PO Q4HP PRN for TERMINAL SECRETIONS Use sublingually if unable to swallow Lorazepam (Ativan) 0.5 Mg Tablet, 0.5 MG PO Q4HP PRN for ANXIETY/AGITATION Use sublingually if unable to swallow Morphine Sulfate (Morphine Sulfate) 100 Mg/5 Ml Solution, 0.25-1 ML PO Q2H PRN for PAIN OR DYSPNEA Use sublingually if unable to swallow Prochlorperazine Maleate (Prochlorperazine Maleate) 10 Mg Tablet, 10 MG PO Q6H PRN for NAUSEA, (Reported) Allergies Coded Allergies: acetaminophen (Verified Allergy, Unknown, 04/17/20) hydrocodone (Verified Allergy, Unknown, 04/17/20) latex (Verified Allergy, Unknown, 04/17/20) MAYCOL VIRK MD Apr 21, 2020 12:33
[2020-04-22 02:06] LABS: LEVETIRACETAM (KEPPRA) 62.4 ug/mL (10.0-40.0)
== END 2020-04-21 14:19 | disposition home health service (06) | DRG 720 ==
LOC: M ED 21:28 → M ED INP 04-18 03:49 → M ICU 04-18 03:52 → M MSPAV 04-18 16:12
PROVIDERS: ADMIT Internal Medicine; ATTEND Internal Medicine
DX: A41.50 Gram-negative sepsis, unspecified (principal); E43 Unspecified severe protein-calorie malnutrition; G93.41 Metabolic encephalopathy; N17.9 Acute kidney failure, unspecified; L89.312 Pressure ulcer of right buttock, stage 2; R53.2 Functional quadriplegia; E87.2 Acidosis; C71.9 Malignant neoplasm of brain, unspecified; D69.6 Thrombocytopenia, unspecified; L89.322 Pressure ulcer of left buttock, stage 2; E83.42 Hypomagnesemia; E87.1 Hypo-osmolality and hyponatremia; Z74.01 Bed confinement status; N13.6 Pyonephrosis; E87.6 Hypokalemia; I10 Essential (primary) hypertension; J45.909 Unspecified asthma, uncomplicated; R73.9 Hyperglycemia, unspecified; N39.0 Urinary tract infection, site not specified; G47.33 Obstructive sleep apnea (adult) (pediatric); D53.9 Nutritional anemia, unspecified; Z91.040 Latex allergy status; Z88.5 Allergy status to narcotic agent; Z88.8 Allergy status to other drugs, medicaments and biological substances; Z79.899 Other long term (current) drug therapy; K21.9 Gastro-esophageal reflux disease without esophagitis; Z66 Do not resuscitate; Z51.5 Encounter for palliative care; R65.20 Severe sepsis without septic shock